=== PATIENT | female | born 1940 | race Caucasian/White ===

== ENCOUNTER 2017-11-09 12:30 | Outpatient (RCR) | payer MEDICARE, BC, SELFPAY ==
[2017-10-12 00:49] VITALS: BP 112/76; PULSE 73; RESP 18; TEMP 36.4
[2017-10-26 12:43] VITALS: BP 149/73; PULSE 69; RESP 16; TEMP 36.6
--- NOTE | 2017-10-26 13:22 | HP.PCM_ITS ---
(1) chronic left lower ext wound Status: Chronic Current Visit: Yes (2) History of DVT (deep vein thrombosis) Status: Chronic Current Visit: Yes Code(s): Z86.718 - Personal history of other venous thrombosis and embolism Comment: left lower ext (3) May-Thurner syndrome Status: Resolved Current Visit: No Code(s): I87.1 - Compression of vein (4) Leg edema, left Status: Chronic Current Visit: Yes Code(s): R60.0 - Localized edema (5) Varicose veins with ulcer and inflammation Status: Chronic Current Visit: Yes Code(s): I83.209 - Varicose veins of unspecified lower extremity with both ulcer of unspecified site and inflammation ; L97.909 - Non-pressure chronic ulcer of unspecified part of unspecified lower leg with unspecified severity (6) Left leg swelling Status: Chronic Current Visit: Yes Code(s): M79.89 - Other specified soft tissue disorders (7) Chronic venous hypertension with inflammation involving left side Status: Chronic Current Visit: Yes Code(s): I87.322 - Chronic venous hypertension (idiopathic) with inflammation of left lower extremity (8) Calf ulcer Status: Chronic Current Visit: Yes Qualifiers: Laterality: left Non-pressure ulcer stage: with fat layer exposed Qualified Code(s): L97.222 - Non-pressure chronic ulcer of left calf with fat layer exposed Code(s): L97.209 - Non-pressure chronic ulcer of unspecified calf with unspecified severity (9) 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 Status: Chronic Current Visit: Yes Code(s): I87.039 - Postthrombotic syndrome with ulcer and inflammation of unspecified lower extremity (10) Lymphedema of left leg Status: Chronic Current Visit: Yes Code(s): I89.0 - Lymphedema, not elsewhere classified (11) Chronic venous insufficiency Status: Chronic Current Visit: Yes (12) Cellulitis Status: Inactive Current Visit: No Code(s): L03.90 - Cellulitis, unspecified (13) Cellulitis of leg Status: Inactive Current Visit: No Qualifiers: Code(s): L03.119 - Cellulitis of unspecified part of limb (14) Erythema of skin Status: Resolved Current Visit: No Code(s): L53.9 - Erythematous condition, unspecified (15) Cellulitis, leg Status: Inactive Current Visit: No Qualifiers: Code(s): L03.119 - Cellulitis of unspecified part of limb (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 This has been present for many years. She has a large ulceration located between her left knee and ankle, which is quite large and irregular in shape, and also highly exudative. 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 She has also previously undergone successful endovenous laser ablation of the left great and small saphenous veins. Healing of the patient's left lower extremity ulceration has been slow, but progressive. A number of healing measures have been implemented in the past , without success. The patient is pleased with her current progress. We are currently using Silvadene topically and Xtrasorb for absorption of exudate. The patient's left calf ulceration continues to improve. It is smaller in size. The left lower extremity appears significantly improved, with increasing areas of epithelialization, and diminishing dimensions of her left lower extremity ulceration. Past Medical History Past Medical History: Chronic Problems chronic left lower ext wound (Chronic) History of DVT (deep vein thrombosis) (Chronic) left lower ext Leg edema, left (Chronic) Varicose veins with ulcer and inflammation (Chronic) Left leg swelling (Chronic) Chronic venous hypertension with inflammation involving left side (Chronic) Calf ulcer (Chronic) 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 (Chronic) Lymphedema of left leg (Chronic) Chronic venous insufficiency (Chronic) Surgical History: appendectomy, hysterectomy Allergies/Adverse Reactions: Allergies Latex, Natural Rubber Allergy (Verified 07/12/13 11:34) Rash Sulfa (Sulfonamide Antibiotics) Allergy (Verified 07/12/13 11:34) Hives trimethoprim Allergy (Verified 07/12/13 11:34) Hives Home Medications: Ambulatory Orders Medication Instructions Recorded Aspirin [Aspirin, Baby] 81 mg PO DAILY@0800 07/12/13 Calcium Carb/Vitamin D [Os-Mo 1 tablet PO DAILY@0800 07/12/13 500MG + D] Clopidogrel Bisulfate [Plavix] 75 mg PO DAILY 07/12/13 Doxepin HCl [Sinequan] 100 mg PO BID 07/12/13 Doxycycline Monohydrate [Monodox] 100 mg PO BID 07/12/13 Wheelwright-3 Fatty Acids/Fish Oil [Fish 1 each PO DAILY 07/12/13 Oil 1,000 mg Softgel] ProMETHAzine Oral Solution 5 ml PO Q4H PRN PRN 07/12/13 [Phenergan Plain] Vitamin B12 500 mg PO DAILY 07/12/13 Vitamin C 500 mg PO DAILY 07/12/13 Prednisone [PredniSONE] 200 mg PO DAILY 07/03/14 Valacyclovir HCl [Valacyclovir] 500 mg PO DAILY 07/03/14 Smoking Status: Never smoker Tobacco Use: Non-smoker Review of Systems Constitutional: Denies: Chills, Fever, Weight Change Eyes: Denies: Pain, Vision Change HEENT: Denies: Difficulty Hearing, Difficulty Swallowing, Sinus Congestion Cardiovascular: Denies: Chest Pain, Palpitations Respiratory: Denies: Cough, Shortness of Breath Gastrointestinal: Denies: Diarrhea, Nausea, Vomiting Genitourinary: Denies: Dysuria, Hematuria Endocrine: Denies: Heat/ Cold Intolerance, Polydipsia, Polyuria Hematologic/ Lymphatic: Denies: Easy Bruising, Easy Bleeding - Physical Exam Vital Signs Temp Pulse Resp BP 98 F 69 16 149/73 H 10/26/17 12:43 10/26/17 12:43 10/26/17 12:43 10/26/17 12:43 General: Alert, Oriented x3, Cooperative, No apparent distress, Well developed, Well nourished HEENT: Atraumatic, PERRLA, EOMI, Normocephalic Oral: Moist Mucosa Neck: No JVD Lungs: Normal air movement Abdomen: Non-Distended Extremities: No clubbing, No cyanosis, No Calf Tenderness, - - Pulling, edema, and lymphedema persist in the left lower extremity. This is most notable on the dorsum of the left foot. The ulceration in the left lower extremity persists, but is smaller in size. It is quite irregular in shape. The base of the ulceration is pink and healthy, with moderate amounts of biofilm and bioburden. Wound dimensions are documented elsewhere. Circumferences are documented elsewhere. There is no sign of infection or cellulitis. Wound Measurements and Assessment - Nurse 1 - General Ulcer Measurement Start: 10/26/17 12:42 Freq: Status: Active Protocol: Activity Type Activity Date Activity User E-Sign Co-Sign Detail Recorded Client Recorded Date Recorded By Document 10/26/17 12:43 [facility] [id number] 10/26/17 12:57 [facility] 10/26/17 12:43 Wound Center Nurse 1 [Ulcer Assessment Protocol: ANNA.WD.LOC] #3 Medial LLE -Combined with other wound No -Current Size (cm) - Length 9.6 -Current Size (cm) - Width 5.8 -Current Size (cm) - Depth 0.1 -Total Square Cm 55.68 -Date of Last Picture (Recall this 10/26/17 field) -Photo Taken Yes -Epithelialization None Present -Tunneling No -Undermining/Tunneling No -Exudate Amt Large (67-100%) -Exudate Type Serous -Wound Margin Distinct, Outline Attached -Granulation Amt Small (1-33%) -Granulation Quality Red -Slough/Fibrin Yes -Necrosis Amt Large (67-100%) -Necrotic Tissue Type Adherent Slough -Structure Exposed N/A -Texture (Nahomy-wound Skin Appearance) Scarring -Moisture (Nahomy-wound Skin Appearance Dry/Scaly ) -Color (Nahomy-wound Skin Appearance) Erythema Hemosiderin Staining -Temperature (Nahomy-wound Skin No Abnormality Appearance) (Pt Warm) -Tenderness on Palpation (Nahomy-wound No Skin Appearance) -Ulcer Cleansing Wound Cleanser -Foul Odor after Cleansing No -Anesthetic Used 4% Lidocaine Solution #4 Lateral LLE -Combined with other wound No -Current Size (cm) - Length 10.6 -Current Size (cm) - Width 13.2 -Current Size (cm) - Depth 0.1 -Total Square Cm 139.92 -Date of Last Picture (Recall this 10/26/17 field) -Photo Taken Yes -Epithelialization None Present -Tunneling No -Undermining/Tunneling No -Exudate Amt Large (67-100%) -Exudate Type Sanguineous -Wound Margin Distinct, Outline Attached -Granulation Amt Small (1-33%) -Granulation Quality Red -Slough/Fibrin Yes -Necrosis Amt Large (67-100%) -Necrotic Tissue Type Adherent Slough -Structure Exposed N/A -Texture (Nahomy-wound Skin Appearance) Scarring -Moisture (Nahomy-wound Skin Appearance Dry/Scaly ) -Color (Nahomy-wound Skin Appearance) Erythema Hemosiderin Staining -Temperature (Nahomy-wound Skin No Abnormality Appearance) (Pt Warm) -Tenderness on Palpation (Nahomy-wound No Skin Appearance) -Ulcer Cleansing Wound Cleanser -Foul Odor after Cleansing No -Anesthetic Used 4% Lidocaine Solution [Edema Assessment] -Lower Limb Edema Present Yes -Left Calf (cm) 36.3 -Left Ankle (cm) 24.6 WC - Nurse 2 - General Ulcer CM Notes Start: 10/26/17 12:42 Freq: Status: Active Protocol: Activity Type Activity Date Activity User E-Sign Co-Sign Detail Recorded Client Recorded Date Recorded By Document 10/26/17 13:06 CARLOS [id number] 10/26/17 13:09 CARLOS 10/26/17 13:06 Wound Center Nurse 2 [Procedure/Treatment] #3 Medial LLE -Time 13:07 -Correct Patient Yes -Correct Side, Site, Position Yes -Correct Procedure Yes -Procedure Performed Yes -Type of Procedure Debridement -Clinical Debridement Subcutaneous -Post Debridement Size (cm) - Length 9.7 -Post Debridement Size (cm) - Width 5.9 -Post Debridement Size (cm) - Depth 0.1 -Total Square Cm 57.23 -Wound/Ulcer Outcome Not Healed -Ulcer Cleansing Rinsed/ Irrigated with Saline -Foul Odor after Cleansing No -Bioengineered Tissue No -Cetacaine Bartlett No -Topical Lidocaine (%) 4 -Lidocaine (ml) 10 -Bleeding Controlled with NA -Treatment Response Procedure Tolerated Well #4 Lateral LLE -Time 13:07 -Correct Patient Yes -Correct Side, Site, Position Yes -Correct Procedure Yes -Procedure Performed Yes -Type of Procedure Debridement -Clinical Debridement Subcutaneous -Post Debridement Size (cm) - Length 10.7 -Post Debridement Size (cm) - Width 13.2 -Post Debridement Size (cm) - Depth 0.1 -Total Square Cm 141.24 -Wound/Ulcer Outcome Not Healed -Ulcer Cleansing Wound Cleanser -Foul Odor after Cleansing No -Bioengineered Tissue No -Cetacaine Bartlett No -Topical Lidocaine (%) 4 -Lidocaine (ml) 10 -Bleeding Controlled with NA -Treatment Response Procedure Tolerated Well [See Physician Procedure note for Specifics] Pain Scale: 0-10 Numeric [Pain] -Is Patient Pain Free? Yes Neurological: Cranial nerves II-XII grossly intact, Neuro grossly intact Psych/Mental Status: Normal Affect, Appropriate, Alert and oriented to time, place, person, mood and affect Debridement Note Post-Debridement Measurements/Treatment WC - Nurse 2 - General Ulcer CM Notes Start: 10/26/17 12:42 Freq: Status: Active Protocol: Activity Type Activity Date Activity User E-Sign Co-Sign Detail Recorded Client Recorded Date Recorded By Document 10/26/17 13:06 CARLOS [id number] 10/26/17 13:09 CARLOS 10/26/17 13:06 Wound Center Nurse 2 #3 Medial LLE -Time 13:07 -Correct Patient Yes -Correct Side, Site, Position Yes -Correct Procedure Yes -Procedure Performed Yes -Type of Procedure Debridement -Clinical Debridement Subcutaneous -Post Debridement Size (cm) - Length 9.7 -Post Debridement Size (cm) - Width 5.9 -Post Debridement Size (cm) - Depth 0.1 -Total Square Cm 57.23 -Wound/Ulcer Outcome Not Healed -Ulcer Cleansing Rinsed/ Irrigated with Saline -Foul Odor after Cleansing No -Bioengineered Tissue No -Cetacaine Bartlett No -Topical Lidocaine (%) 4 -Lidocaine (ml) 10 -Bleeding Controlled with NA -Treatment Response Procedure Tolerated Well #4 Lateral LLE -Time 13:07 -Correct Patient Yes -Correct Side, Site, Position Yes -Correct Procedure Yes -Procedure Performed Yes -Type of Procedure Debridement -Clinical Debridement Subcutaneous -Post Debridement Size (cm) - Length 10.7 -Post Debridement Size (cm) - Width 13.2 -Post Debridement Size (cm) - Depth 0.1 -Total Square Cm 141.24 -Wound/Ulcer Outcome Not Healed -Ulcer Cleansing Wound Cleanser -Foul Odor after Cleansing No -Bioengineered Tissue No -Cetacaine Bartlett No -Topical Lidocaine (%) 4 -Lidocaine (ml) 10 -Bleeding Controlled with NA -Treatment Response Procedure Tolerated Well Pain Scale: 0-10 Numeric Is Patient Pain Free? Yes Laterality: Left - Calf Type of Debridement: Excisional debridement Anesthesia Used: 4% Lidocaine Solution Depth: Down to and including healthy tissue, in the subcutaneous layer Percentage of wound debrided: 100 Instrument Used: 5mm curette Severity: Fat Layer Exposed Amount of bleeding with debridement: Mild Bleeding Controlled with: Compression and gauze Patient tolerated procedure well Assessment/Plan Active Problems chronic left lower ext wound (Chronic) History of DVT (deep vein thrombosis) (Chronic) left lower ext Leg edema, left (Chronic) Varicose veins with ulcer and inflammation (Chronic) Left leg swelling (Chronic) Chronic venous hypertension with inflammation involving left side (Chronic) Calf ulcer (Chronic) 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 (Chronic) Lymphedema of left leg (Chronic) Chronic venous insufficiency (Chronic) Assessment: This is a 77-year-old white female with chronic venous insufficiency , chronic venous hypertension with inflammation and ulceration, varicose veins with inflammation and ulceration, post-phlebitic syndrome with inflammation and ulceration, and left lower extremity swelling and edema and lymphedema. She has a large irregular ulceration on the left lower extremity which is related to her venous disease. The patient has demonstrated slow but progressive improvement. The base of the ulceration appears generally pink and healthy, with a moderate amount of biofilm and bioburden. We are to continue leg elevation, avoidance of idle standing and sitting, compression by means of SurePress, active lifestyle, weight control measures,etc. She is to continue to take a well-balanced, nutritious diet. We are to continue with the use of Silvadene topically. This will be applied topically on a daily basis. Plan: As above. The patient will return in 2 weeks for reevaluation. We are to continue Silvadene topically. Her continuing improvement suggests that present measures are appropriate and providing the desired results. Current measures include leg elevation, avoidance of idle standing and sitting, activity as tolerated, weight control, and compression by means of SurePress, applied by the patient on a daily basis. She is to continue with the use of XtraSorb for moisture control. The ulceration continues to be exudative, and the patient has been encouraged to enhance the amount of time spent elevating her lower extremity, to help minimize the drainage. Patient is also to continue the use of Vasculera orally on a daily basis, which appears to have made significant improvement during the duration of its use. Patient will return in 2 weeks for reassessment. Patient weight is 160 pounds. Patient is 5 feet 9 inches tall. BMI is 23.6. We have discussed weight loss issues, the patient does not require counseling, as her BMI is reasonable. The patient is not a smoker. Influenza vaccine was not administered.
[2017-11-09 12:27] VITALS: BP 145/79; PULSE 70; RESP 16; TEMP 36.5
--- NOTE | 2017-11-09 13:50 | PCM.WC.HP ---
(1) chronic left lower ext wound Status: Chronic Current Visit: Yes (2) History of DVT (deep vein thrombosis) Status: Chronic Current Visit: Yes Code(s): Z86.718 - Personal history of other venous thrombosis and embolism Comment: left lower ext (3) Leg edema, left Status: Chronic Current Visit: Yes Code(s): R60.0 - Localized edema (4) Varicose veins with ulcer and inflammation Status: Chronic Current Visit: Yes Code(s): I83.209 - Varicose veins of unspecified lower extremity with both ulcer of unspecified site and inflammation; L97.909 - Non-pressure chronic ulcer of unspecified part of unspecified lower leg with unspecified severity (5) Left leg swelling Status: Chronic Current Visit: Yes Code(s): M79.89 - Other specified soft tissue disorders (6) Chronic venous hypertension with inflammation involving left side Status: Chronic Current Visit: Yes Code(s): I87.322 - Chronic venous hypertension (idiopathic) with inflammation of left lower extremity (7) Calf ulcer Status: Chronic Current Visit: Yes Qualifiers: Laterality: left Non-pressure ulcer stage: with fat layer exposed Qualified Code(s): L97.222 - Non-pressure chronic ulcer of left calf with fat layer exposed Code(s): L97.209 - Non-pressure chronic ulcer of unspecified calf with unspecified severity (8) 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 Status: Chronic Current Visit: Yes Code(s): I87.039 - Postthrombotic syndrome with ulcer and inflammation of unspecified lower extremity (9) Lymphedema of left leg Status: Chronic Current Visit: Yes Code(s): I89.0 - Lymphedema, not elsewhere classified (10) Chronic venous insufficiency Status: Chronic Current Visit: Yes History of Present Illness Date of Service: 11/09/17 Chief Complaint: Chronic venous insufficiency, chronic venous hypertension with inflammation and ulceration, varicose veins with inflammation and ulceration, post phlebitic syndrome with inflammation and ulceration,leg swelling, leg edema, lymphedema, venous stasis ulceration-left lower extremity History of Wound: This is a 77-year-old white female with a long-standing history of chronic venous disease and swelling in her left lower extremity. This has been present for many years. She has a large ulceration located between her left knee and ankle, which is quite large and irregular in shape, and also highly exudative. 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 She has also previously undergone successful endovenous laser ablation of the left great and small saphenous veins. Healing of the patient's left lower extremity ulceration has been slow, but progressive. A number of healing measures have been implemented in the past, without success. The patient is pleased with her current progress. We are currently using Silvadene topically and Xtrasorb for absorption of exudate. The patient's left calf ulceration continues to improve. It is smaller in size. The left lower extremity appears significantly improved, with increasing areas of epithelialization, and diminishing dimensions of her left lower extremity ulceration. Past Medical History Past Medical History: Chronic Problems chronic left lower ext wound (Chronic) History of DVT (deep vein thrombosis) (Chronic) left lower ext Leg edema, left (Chronic) Varicose veins with ulcer and inflammation (Chronic) Left leg swelling (Chronic) Chronic venous hypertension with inflammation involving left side (Chronic) Calf ulcer (Chronic) 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 (Chronic) Lymphedema of left leg (Chronic) Chronic venous insufficiency (Chronic) Surgical History: appendectomy, hysterectomy Allergies/Adverse Reactions: Allergies Latex, Natural Rubber Allergy (Verified 07/12/13 11:34) Rash Sulfa (Sulfonamide Antibiotics) Allergy (Verified 07/12/13 11:34) Hives trimethoprim Allergy (Verified 07/12/13 11:34) Hives Home Medications: Ambulatory Orders Medication Instructions Recorded Aspirin [Aspirin, Baby] 81 mg PO DAILY@0800 07/12/13 Calcium Carb/Vitamin D [Os-Mo 1 tablet PO DAILY@0800 07/12/13 500MG + D] Clopidogrel Bisulfate [Plavix] 75 mg PO DAILY 07/12/13 Doxepin HCl [Sinequan] 100 mg PO BID 07/12/13 Doxycycline Monohydrate [Monodox] 100 mg PO BID 07/12/13 [place]-3 Fatty Acids/Fish Oil [Fish 1 each PO DAILY 07/12/13 Oil 1,000 mg Softgel] ProMETHAzine Oral Solution 5 ml PO Q4H PRN PRN 07/12/13 [Phenergan Plain] Vitamin B12 500 mg PO DAILY 07/12/13 Vitamin C 500 mg PO DAILY 07/12/13 Prednisone [PredniSONE] 200 mg PO DAILY 07/03/14 Valacyclovir HCl [Valacyclovir] 500 mg PO DAILY 07/03/14 Smoking Status: Never smoker Tobacco Use: Non-smoker Review of Systems Constitutional: Denies: Chills, Fever, Weight Change Eyes: Denies: Pain, Vision Change HEENT: Denies: Difficulty Hearing, Difficulty Swallowing, Sinus Congestion Cardiovascular: Denies: Chest Pain, Palpitations Respiratory: Denies: Cough, Shortness of Breath Gastrointestinal: Denies: Diarrhea, Nausea, Vomiting Genitourinary: Denies: Dysuria, Hematuria Endocrine: Denies: Heat/ Cold Intolerance, Polydipsia, Polyuria Hematologic/ Lymphatic: Denies: Easy Bruising, Easy Bleeding - Physical Exam Vital Signs Temp Pulse Resp BP 97.7 F L 70 16 145/79 H 11/09/17 12:27 11/09/17 12:27 11/09/17 12:27 11/09/17 12:27 General: Alert, Oriented x3, Cooperative, No apparent distress, Well developed, Well nourished HEENT: Atraumatic, PERRLA, EOMI, Normocephalic Oral: Moist Mucosa Neck: No JVD Lungs: Normal air movement Abdomen: Non-Distended Extremities: No clubbing, No cyanosis, No Calf Tenderness, - - Moderate swelling and edema persist in the left lower extremity. This is chronic in nature, and is noted particularly on the dorsum of the left foot. The ulceration on the left calf persists, and is quite irregular in shape. Dimensions are documented elsewhere. There is no sign of infection or cellulitis. There is a moderate amount of biofilm and bioburden. Skin: No rashes Wound Measurements and Assessment - Nurse 1 - General Ulcer Measurement Start: 10/26/17 12:42 Freq: Status: Active Protocol: Activity Type Activity Date Activity User E-Sign Co-Sign Detail Recorded Client Recorded Date Recorded By Document 11/09/17 12:27 [facility] [id number] 11/09/17 12:41 [facility] 11/09/17 12:27 Wound Center Nurse 1 [Ulcer Assessment Protocol: ANNA.WD.LOC] #3 Medial LLE -Combined with other wound No -Current Size (cm) - Length 9.8 -Current Size (cm) - Width 6 -Current Size (cm) - Depth 0.1 -Total Square Cm 58.8 -Date of Last Picture (Recall this 11/09/17 field) -Photo Taken Yes -Tunneling No -Undermining/Tunneling No -Exudate Amt Large (67-100%) -Exudate Type Serosanguineous -Wound Margin Distinct, Outline Attached -Granulation Amt Small (1-33%) -Granulation Quality Red -Slough/Fibrin Yes -Necrosis Amt Large (67-100%) -Necrotic Tissue Type Adherent Slough -Texture (Nahomy-wound Skin Appearance) Scarring Rash -Moisture (Nahomy-wound Skin Appearance Maceration ) Dry/Scaly -Color (Nahomy-wound Skin Appearance) Erythema -Temperature (Nahomy-wound Skin No Abnormality Appearance) (Pt Warm) -Tenderness on Palpation (Nahomy-wound No Skin Appearance) -Ulcer Cleansing Wound Cleanser -Foul Odor after Cleansing No -Anesthetic Used 4% Lidocaine Solution #4 Lateral LLE -Combined with other wound No -Current Size (cm) - Length 10.4 -Current Size (cm) - Width 13.1 -Current Size (cm) - Depth 0.1 -Total Square Cm 136.24 -Date of Last Picture (Recall this 11/09/17 field) -Photo Taken Yes -Tunneling No -Undermining/Tunneling No -Exudate Amt Large (67-100%) -Exudate Type Serosanguineous -Wound Margin Distinct, Outline Attached -Granulation Amt Small (1-33%) -Granulation Quality Red -Slough/Fibrin Yes -Necrosis Amt Large (67-100%) -Necrotic Tissue Type Adherent Slough -Texture (Nahomy-wound Skin Appearance) Scarring Rash -Moisture (Nahomy-wound Skin Appearance Maceration ) Dry/Scaly -Color (Nahomy-wound Skin Appearance) Erythema -Temperature (Nahomy-wound Skin No Abnormality Appearance) (Pt Warm) -Tenderness on Palpation (Nahomy-wound No Skin Appearance) -Ulcer Cleansing Wound Cleanser -Foul Odor after Cleansing No -Anesthetic Used 4% Lidocaine Solution [Edema Assessment] -Lower Limb Edema Present Yes -Left Calf (cm) 39.6 -Left Ankle (cm) 24.1 WC - Nurse 2 - General Ulcer CM Notes Start: 10/26/17 12:42 Freq: Status: Active Protocol: Activity Type Activity Date Activity User E-Sign Co-Sign Detail Recorded Client Recorded Date Recorded By Document 11/09/17 13:43 DV [id number] 11/09/17 13:48 DV 11/09/17 13:43 Wound Center Nurse 2 [Procedure/Treatment] #3 Medial LLE -Time 13:43 -Correct Patient Yes -Correct Side, Site, Position Yes -Correct Procedure Yes -Procedure Performed Yes -Type of Procedure Debridement -Clinical Debridement Subcutaneous -Post Debridement Size (cm) - Length 10.0 -Post Debridement Size (cm) - Width 6.0 -Post Debridement Size (cm) - Depth 0.1 -Total Square Cm 60.00 -Wound/Ulcer Outcome Not Healed -Ulcer Cleansing Rinsed/ Irrigated with Saline -Foul Odor after Cleansing No -Bioengineered Tissue No -Cetacaine [place] No -Bleeding Controlled with Pressure -Treatment Response Procedure Tolerated Well #4 Lateral LLE -Time 13:44 -Correct Patient Yes -Correct Side, Site, Position Yes -Correct Procedure Yes -Procedure Performed Yes -Type of Procedure Debridement -Clinical Debridement Subcutaneous -Post Debridement Size (cm) - Length 10.5 -Post Debridement Size (cm) - Width 13.5 -Post Debridement Size (cm) - Depth 0.1 -Total Square Cm 141.75 -Wound/Ulcer Outcome Not Healed -Ulcer Cleansing Rinsed/ Irrigated with Saline -Foul Odor after Cleansing Yes -Cetacaine [place] No -Bleeding Controlled with Pressure -Treatment Response Procedure Tolerated Well [See Physician Procedure note for Specifics] Pain Scale: 0-10 Numeric [Pain] -Is Patient Pain Free? Yes Neurological: Cranial nerves II-XII grossly intact, Neuro grossly intact Psych/Mental Status: Normal Affect, Appropriate, Alert and oriented to time, place, person, mood and affect Debridement Note Post-Debridement Measurements/Treatment WC - Nurse 2 - General Ulcer CM Notes Start: 10/26/17 12:42 Freq: Status: Active Protocol: Activity Type Activity Date Activity User E-Sign Co-Sign Detail Recorded Client Recorded Date Recorded By Document 10/26/17 13:06 CARLOS [id number] 10/26/17 13:09 JS Document 11/09/17 13:43 DV [id number] 11/09/17 13:48 DV 10/26/17 11/09/17 13:06 13:43 Wound Center Nurse 2 #3 Medial LLE -Time 13:07 13:43 -Correct Patient Yes Yes -Correct Side, Site, Position Yes Yes -Correct Procedure Yes Yes -Procedure Performed Yes Yes -Type of Procedure Debridement Debridement -Clinical Debridement Subcutaneous Subcutaneous -Post Debridement Size (cm) - Length 9.7 10.0 -Post Debridement Size (cm) - Width 5.9 6.0 -Post Debridement Size (cm) - Depth 0.1 0.1 -Total Square Cm 57.23 60.00 -Wound/Ulcer Outcome Not Healed Not Healed -Ulcer Cleansing Rinsed/ Rinsed/ Irrigated with Irrigated with Saline Saline -Foul Odor after Cleansing No No -Bioengineered Tissue No No -Cetacaine [place] No No -Topical Lidocaine (%) 4 -Lidocaine (ml) 10 -Bleeding Controlled with NA Pressure -Treatment Response Procedure Procedure Tolerated Well Tolerated Well #4 Lateral LLE -Time 13:07 13:44 -Correct Patient Yes Yes -Correct Side, Site, Position Yes Yes -Correct Procedure Yes Yes -Procedure Performed Yes Yes -Type of Procedure Debridement Debridement -Clinical Debridement Subcutaneous Subcutaneous -Post Debridement Size (cm) - Length 10.7 10.5 -Post Debridement Size (cm) - Width 13.2 13.5 -Post Debridement Size (cm) - Depth 0.1 0.1 -Total Square Cm 141.24 141.75 -Wound/Ulcer Outcome Not Healed Not Healed -Ulcer Cleansing Wound Cleanser Rinsed/ Irrigated with Saline -Foul Odor after Cleansing No Yes -Bioengineered Tissue No -Cetacaine [place] No No -Topical Lidocaine (%) 4 -Lidocaine (ml) 10 -Bleeding Controlled with NA Pressure -Treatment Response Procedure Procedure Tolerated Well Tolerated Well Pain Scale: 0-10 Numeric Is Patient Pain Free? Yes Yes Laterality: Left - Calf Type of Debridement: Excisional debridement Anesthesia Used: 4% Lidocaine Solution Depth: Down to and including healthy tissue, in the subcutaneous layer Percentage of wound debrided: 100 Instrument Used: 7mm curette Severity: Fat Layer Exposed Amount of bleeding with debridement: Mild Bleeding Controlled with: Compression and gauze Patient tolerated procedure well Assessment/Plan Active Problems chronic left lower ext wound (Chronic) History of DVT (deep vein thrombosis) (Chronic) left lower ext Leg edema, left (Chronic) Varicose veins with ulcer and inflammation (Chronic) Left leg swelling (Chronic) Chronic venous hypertension with inflammation involving left side (Chronic) Calf ulcer (Chronic) 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 (Chronic) Lymphedema of left leg (Chronic) Chronic venous insufficiency (Chronic) Assessment: This is a 77-year-old white female with chronic venous insufficiency, chronic venous hypertension with inflammation and ulceration, varicose veins with inflammation and ulceration, post-phlebitic syndrome with inflammation and ulceration, and left lower extremity swelling and edema and lymphedema. She has a large irregular ulceration on the left lower extremity which is related to her venous disease. The patient has demonstrated slow but progressive improvement. The base of the ulceration appears generally pink and healthy, with a moderate amount of biofilm and bioburden. We are to continue leg elevation, avoidance of idle standing and sitting, compression by means of SurePress, active lifestyle, weight control measures,etc. She is to continue to take a well-balanced, nutritious diet. We are to continue with the use of Silvadene topically. This will be applied topically on a daily basis. Plan: As above. The patient will return in 2 weeks for reevaluation. We are to continue Silvadene topically. Her continuing improvement suggests that present measures are appropriate and providing the desired results. Current measures include leg elevation, avoidance of idle standing and sitting, activity as tolerated, weight control, and compression by means of SurePress, applied by the patient on a daily basis. She is to continue with the use of XtraSorb for moisture control. The ulceration continues to be exudative, and the patient has been encouraged to enhance the amount of time spent elevating her lower extremity, to help minimize the drainage. Patient is also to continue the use of Vasculera orally on a daily basis, which appears to have made significant improvement during the duration of its use. Patient will return in 2 weeks for reassessment. Patient weight is 160 pounds. Patient is 5 feet 9 inches tall. BMI is 23.6. We have discussed weight loss issues, the patient does not require counseling, as her BMI is reasonable. The patient is not a smoker. Influenza vaccine was not administered.
--- NOTE | 2017-11-09 13:53 | HP.PCM_ITS ---
(1) chronic left lower ext wound Status: Chronic Current Visit: Yes (2) History of DVT (deep vein thrombosis) Status: Chronic Current Visit: Yes Code(s): Z86.718 - Personal history of other venous thrombosis and embolism Comment: left lower ext (3) Leg edema, left Status: Chronic Current Visit: Yes Code(s): R60.0 - Localized edema (4) Varicose veins with ulcer and inflammation Status: Chronic Current Visit: Yes Code(s): I83.209 - Varicose veins of unspecified lower extremity with both ulcer of unspecified site and inflammation ; L97.909 - Non-pressure chronic ulcer of unspecified part of unspecified lower leg with unspecified severity (5) Left leg swelling Status: Chronic Current Visit: Yes Code(s): M79.89 - Other specified soft tissue disorders (6) Chronic venous hypertension with inflammation involving left side Status: Chronic Current Visit: Yes Code(s): I87.322 - Chronic venous hypertension (idiopathic) with inflammation of left lower extremity (7) Calf ulcer Status: Chronic Current Visit: Yes Qualifiers: Laterality: left Non-pressure ulcer stage: with fat layer exposed Qualified Code(s): L97.222 - Non-pressure chronic ulcer of left calf with fat layer exposed Code(s): L97.209 - Non-pressure chronic ulcer of unspecified calf with unspecified severity (8) 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 Status: Chronic Current Visit: Yes Code(s): I87.039 - Postthrombotic syndrome with ulcer and inflammation of unspecified lower extremity (9) Lymphedema of left leg Status: Chronic Current Visit: Yes Code(s): I89.0 - Lymphedema, not elsewhere classified (10) Chronic venous insufficiency Status: Chronic Current Visit: Yes History of Present Illness Date of Service: 11/09/17 Chief Complaint: Chronic venous insufficiency, chronic venous hypertension with inflammation and ulceration, varicose veins with inflammation and ulceration, post phlebitic syndrome with inflammation and ulceration,leg swelling, leg edema , lymphedema, venous stasis ulceration-left lower extremity History of Wound: This is a 77-year-old white female with a long-standing history of chronic venous disease and swelling in her left lower extremity. This has been present for many years. She has a large ulceration located between her left knee and ankle, which is quite large and irregular in shape, and also highly exudative. 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 She has also previously undergone successful endovenous laser ablation of the left great and small saphenous veins. Healing of the patient's left lower extremity ulceration has been slow, but progressive. A number of healing measures have been implemented in the past , without success. The patient is pleased with her current progress. We are currently using Silvadene topically and Xtrasorb for absorption of exudate. The patient's left calf ulceration continues to improve. It is smaller in size. The left lower extremity appears significantly improved, with increasing areas of epithelialization, and diminishing dimensions of her left lower extremity ulceration. Past Medical History Past Medical History: Chronic Problems chronic left lower ext wound (Chronic) History of DVT (deep vein thrombosis) (Chronic) left lower ext Leg edema, left (Chronic) Varicose veins with ulcer and inflammation (Chronic) Left leg swelling (Chronic) Chronic venous hypertension with inflammation involving left side (Chronic) Calf ulcer (Chronic) 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 (Chronic) Lymphedema of left leg (Chronic) Chronic venous insufficiency (Chronic) Surgical History: appendectomy, hysterectomy Allergies/Adverse Reactions: Allergies Latex, Natural Rubber Allergy (Verified 07/12/13 11:34) Rash Sulfa (Sulfonamide Antibiotics) Allergy (Verified 07/12/13 11:34) Hives trimethoprim Allergy (Verified 07/12/13 11:34) Hives Home Medications: Ambulatory Orders Medication Instructions Recorded Aspirin [Aspirin, Baby] 81 mg PO DAILY@0800 07/12/13 Calcium Carb/Vitamin D [Os-Mo 1 tablet PO DAILY@0800 07/12/13 500MG + D] Clopidogrel Bisulfate [Plavix] 75 mg PO DAILY 07/12/13 Doxepin HCl [Sinequan] 100 mg PO BID 07/12/13 Doxycycline Monohydrate [Monodox] 100 mg PO BID 07/12/13 [place]-3 Fatty Acids/Fish Oil [Fish 1 each PO DAILY 07/12/13 Oil 1,000 mg Softgel] ProMETHAzine Oral Solution 5 ml PO Q4H PRN PRN 07/12/13 [Phenergan Plain] Vitamin B12 500 mg PO DAILY 07/12/13 Vitamin C 500 mg PO DAILY 07/12/13 Prednisone [PredniSONE] 200 mg PO DAILY 07/03/14 Valacyclovir HCl [Valacyclovir] 500 mg PO DAILY 07/03/14 Smoking Status: Never smoker Tobacco Use: Non-smoker Review of Systems Constitutional: Denies: Chills, Fever, Weight Change Eyes: Denies: Pain, Vision Change HEENT: Denies: Difficulty Hearing, Difficulty Swallowing, Sinus Congestion Cardiovascular: Denies: Chest Pain, Palpitations Respiratory: Denies: Cough, Shortness of Breath Gastrointestinal: Denies: Diarrhea, Nausea, Vomiting Genitourinary: Denies: Dysuria, Hematuria Endocrine: Denies: Heat/ Cold Intolerance, Polydipsia, Polyuria Hematologic/ Lymphatic: Denies: Easy Bruising, Easy Bleeding - Physical Exam Vital Signs Temp Pulse Resp BP 97.7 F L 70 16 145/79 H 11/09/17 12:27 11/09/17 12:27 11/09/17 12:27 11/09/17 12:27 General: Alert, Oriented x3, Cooperative, No apparent distress, Well developed, Well nourished HEENT: Atraumatic, PERRLA, EOMI, Normocephalic Oral: Moist Mucosa Neck: No JVD Lungs: Normal air movement Abdomen: Non-Distended Extremities: No clubbing, No cyanosis, No Calf Tenderness, - - Moderate swelling and edema persist in the left lower extremity. This is chronic in nature, and is noted particularly on the dorsum of the left foot. The ulceration on the left calf persists, and is quite irregular in shape. Dimensions are documented elsewhere. There is no sign of infection or cellulitis. There is a moderate amount of biofilm and bioburden. Skin: No rashes Wound Measurements and Assessment - Nurse 1 - General Ulcer Measurement Start: 10/26/17 12:42 Freq: Status: Active Protocol: Activity Type Activity Date Activity User E-Sign Co-Sign Detail Recorded Client Recorded Date Recorded By Document 11/09/17 12:27 [facility] [id number] 11/09/17 12:41 [facility] 11/09/17 12:27 Wound Center Nurse 1 [Ulcer Assessment Protocol: ANNA.WD.LOC] #3 Medial LLE -Combined with other wound No -Current Size (cm) - Length 9.8 -Current Size (cm) - Width 6 -Current Size (cm) - Depth 0.1 -Total Square Cm 58.8 -Date of Last Picture (Recall this 11/09/17 field) -Photo Taken Yes -Tunneling No -Undermining/Tunneling No -Exudate Amt Large (67-100%) -Exudate Type Serosanguineous -Wound Margin Distinct, Outline Attached -Granulation Amt Small (1-33%) -Granulation Quality Red -Slough/Fibrin Yes -Necrosis Amt Large (67-100%) -Necrotic Tissue Type Adherent Slough -Texture (Nahomy-wound Skin Appearance) Scarring Rash -Moisture (Nahomy-wound Skin Appearance Maceration ) Dry/Scaly -Color (Nahomy-wound Skin Appearance) Erythema -Temperature (Nahomy-wound Skin No Abnormality Appearance) (Pt Warm) -Tenderness on Palpation (Nahomy-wound No Skin Appearance) -Ulcer Cleansing Wound Cleanser -Foul Odor after Cleansing No -Anesthetic Used 4% Lidocaine Solution #4 Lateral LLE -Combined with other wound No -Current Size (cm) - Length 10.4 -Current Size (cm) - Width 13.1 -Current Size (cm) - Depth 0.1 -Total Square Cm 136.24 -Date of Last Picture (Recall this 11/09/17 field) -Photo Taken Yes -Tunneling No -Undermining/Tunneling No -Exudate Amt Large (67-100%) -Exudate Type Serosanguineous -Wound Margin Distinct, Outline Attached -Granulation Amt Small (1-33%) -Granulation Quality Red -Slough/Fibrin Yes -Necrosis Amt Large (67-100%) -Necrotic Tissue Type Adherent Slough -Texture (Nahomy-wound Skin Appearance) Scarring Rash -Moisture (Nahomy-wound Skin Appearance Maceration ) Dry/Scaly -Color (Nahomy-wound Skin Appearance) Erythema -Temperature (Nahomy-wound Skin No Abnormality Appearance) (Pt Warm) -Tenderness on Palpation (Nahomy-wound No Skin Appearance) -Ulcer Cleansing Wound Cleanser -Foul Odor after Cleansing No -Anesthetic Used 4% Lidocaine Solution [Edema Assessment] -Lower Limb Edema Present Yes -Left Calf (cm) 39.6 -Left Ankle (cm) 24.1 WC - Nurse 2 - General Ulcer CM Notes Start: 10/26/17 12:42 Freq: Status: Active Protocol: Activity Type Activity Date Activity User E-Sign Co-Sign Detail Recorded Client Recorded Date Recorded By Document 11/09/17 13:43 DV [id number] 11/09/17 13:48 DV 11/09/17 13:43 Wound Center Nurse 2 [Procedure/Treatment] #3 Medial LLE -Time 13:43 -Correct Patient Yes -Correct Side, Site, Position Yes -Correct Procedure Yes -Procedure Performed Yes -Type of Procedure Debridement -Clinical Debridement Subcutaneous -Post Debridement Size (cm) - Length 10.0 -Post Debridement Size (cm) - Width 6.0 -Post Debridement Size (cm) - Depth 0.1 -Total Square Cm 60.00 -Wound/Ulcer Outcome Not Healed -Ulcer Cleansing Rinsed/ Irrigated with Saline -Foul Odor after Cleansing No -Bioengineered Tissue No -Cetacaine Orange No -Bleeding Controlled with Pressure -Treatment Response Procedure Tolerated Well #4 Lateral LLE -Time 13:44 -Correct Patient Yes -Correct Side, Site, Position Yes -Correct Procedure Yes -Procedure Performed Yes -Type of Procedure Debridement -Clinical Debridement Subcutaneous -Post Debridement Size (cm) - Length 10.5 -Post Debridement Size (cm) - Width 13.5 -Post Debridement Size (cm) - Depth 0.1 -Total Square Cm 141.75 -Wound/Ulcer Outcome Not Healed -Ulcer Cleansing Rinsed/ Irrigated with Saline -Foul Odor after Cleansing Yes -Cetacaine Orange No -Bleeding Controlled with Pressure -Treatment Response Procedure Tolerated Well [See Physician Procedure note for Specifics] Pain Scale: 0-10 Numeric [Pain] -Is Patient Pain Free? Yes Neurological: Cranial nerves II-XII grossly intact, Neuro grossly intact Psych/Mental Status: Normal Affect, Appropriate, Alert and oriented to time, place, person, mood and affect Debridement Note Post-Debridement Measurements/Treatment WC - Nurse 2 - General Ulcer CM Notes Start: 10/26/17 12:42 Freq: Status: Active Protocol: Activity Type Activity Date Activity User E-Sign Co-Sign Detail Recorded Client Recorded Date Recorded By Document 10/26/17 13:06 CARLOS [id number] 10/26/17 13:09 JS Document 11/09/17 13:43 DV [id number] 11/09/17 13:48 DV 10/26/17 11/09/17 13:06 13:43 Wound Center Nurse 2 #3 Medial LLE -Time 13:07 13:43 -Correct Patient Yes Yes -Correct Side, Site, Position Yes Yes -Correct Procedure Yes Yes -Procedure Performed Yes Yes -Type of Procedure Debridement Debridement -Clinical Debridement Subcutaneous Subcutaneous -Post Debridement Size (cm) - Length 9.7 10.0 -Post Debridement Size (cm) - Width 5.9 6.0 -Post Debridement Size (cm) - Depth 0.1 0.1 -Total Square Cm 57.23 60.00 -Wound/Ulcer Outcome Not Healed Not Healed -Ulcer Cleansing Rinsed/ Rinsed/ Irrigated with Irrigated with Saline Saline -Foul Odor after Cleansing No No -Bioengineered Tissue No No -Cetacaine Orange No No -Topical Lidocaine (%) 4 -Lidocaine (ml) 10 -Bleeding Controlled with NA Pressure -Treatment Response Procedure Procedure Tolerated Well Tolerated Well #4 Lateral LLE -Time 13:07 13:44 -Correct Patient Yes Yes -Correct Side, Site, Position Yes Yes -Correct Procedure Yes Yes -Procedure Performed Yes Yes -Type of Procedure Debridement Debridement -Clinical Debridement Subcutaneous Subcutaneous -Post Debridement Size (cm) - Length 10.7 10.5 -Post Debridement Size (cm) - Width 13.2 13.5 -Post Debridement Size (cm) - Depth 0.1 0.1 -Total Square Cm 141.24 141.75 -Wound/Ulcer Outcome Not Healed Not Healed -Ulcer Cleansing Wound Cleanser Rinsed/ Irrigated with Saline -Foul Odor after Cleansing No Yes -Bioengineered Tissue No -Cetacaine Orange No No -Topical Lidocaine (%) 4 -Lidocaine (ml) 10 -Bleeding Controlled with NA Pressure -Treatment Response Procedure Procedure Tolerated Well Tolerated Well Pain Scale: 0-10 Numeric Is Patient Pain Free? Yes Yes Laterality: Left - Calf Type of Debridement: Excisional debridement Anesthesia Used: 4% Lidocaine Solution Depth: Down to and including healthy tissue, in the subcutaneous layer Percentage of wound debrided: 100 Instrument Used: 7mm curette Severity: Fat Layer Exposed Amount of bleeding with debridement: Mild Bleeding Controlled with: Compression and gauze Patient tolerated procedure well Assessment/Plan Active Problems chronic left lower ext wound (Chronic) History of DVT (deep vein thrombosis) (Chronic) left lower ext Leg edema, left (Chronic) Varicose veins with ulcer and inflammation (Chronic) Left leg swelling (Chronic) Chronic venous hypertension with inflammation involving left side (Chronic) Calf ulcer (Chronic) 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 (Chronic) Lymphedema of left leg (Chronic) Chronic venous insufficiency (Chronic) Assessment: This is a 77-year-old white female with chronic venous insufficiency , chronic venous hypertension with inflammation and ulceration, varicose veins with inflammation and ulceration, post-phlebitic syndrome with inflammation and ulceration, and left lower extremity swelling and edema and lymphedema. She has a large irregular ulceration on the left lower extremity which is related to her venous disease. The patient has demonstrated slow but progressive improvement. The base of the ulceration appears generally pink and healthy, with a moderate amount of biofilm and bioburden. We are to continue leg elevation, avoidance of idle standing and sitting, compression by means of SurePress, active lifestyle, weight control measures,etc. She is to continue to take a well-balanced, nutritious diet. We are to continue with the use of Silvadene topically. This will be applied topically on a daily basis. Plan: As above. The patient will return in 2 weeks for reevaluation. We are to continue Silvadene topically. Her continuing improvement suggests that present measures are appropriate and providing the desired results. Current measures include leg elevation, avoidance of idle standing and sitting, activity as tolerated, weight control, and compression by means of SurePress, applied by the patient on a daily basis. She is to continue with the use of XtraSorb for moisture control. The ulceration continues to be exudative, and the patient has been encouraged to enhance the amount of time spent elevating her lower extremity, to help minimize the drainage. Patient is also to continue the use of Vasculera orally on a daily basis, which appears to have made significant improvement during the duration of its use. Patient will return in 2 weeks for reassessment. Patient weight is 160 pounds. Patient is 5 feet 9 inches tall. BMI is 23.6. We have discussed weight loss issues, the patient does not require counseling, as her BMI is reasonable. The patient is not a smoker. Influenza vaccine was not administered.
== END 2017-11-11 23:59 ==
LOC: WC 12:30
PROVIDERS: Visit Provider Surgery
DX: I83.022 Varicose veins of left lower extremity with ulcer of calf (principal); L97.222 Non-pressure chronic ulcer of left calf with fat layer exposed; Z86.718 Personal history of other venous thrombosis and embolism; R60.0 Localized edema; M79.89 Other specified soft tissue disorders; I89.0 Lymphedema, not elsewhere classified; L03.119 Cellulitis of unspecified part of limb; Z79.899 Other long term (current) drug therapy; Z79.02 Long term (current) use of antithrombotics/antiplatelets; Z79.51 Long term (current) use of inhaled steroids
CPT/HCPCS: 11042; 11045

== ENCOUNTER 2017-12-07 12:30 | Outpatient (RCR) | payer MEDICARE, BC, SELFPAY ==
[2017-11-09 12:27] VITALS: BP 145/79
[2017-11-12 00:36] VITALS: PULSE 70; RESP 16; TEMP 36.5
[2017-11-24 11:12] VITALS: BP 146/79; PULSE 71; RESP 16; TEMP 37.1
--- NOTE | 2017-11-24 12:00 | HP.PCM_ITS ---
(1) Chronic venous hypertension with inflammation involving left side Status: Chronic Current Visit: Yes Code(s): I87.322 - Chronic venous hypertension (idiopathic) with inflammation of left lower extremity (2) Left leg swelling Status: Chronic Current Visit: Yes Code(s): M79.89 - Other specified soft tissue disorders (3) Varicose veins with ulcer and inflammation Status: Chronic Current Visit: Yes Code(s): I83.209 - Varicose veins of unspecified lower extremity with both ulcer of unspecified site and inflammation ; L97.909 - Non-pressure chronic ulcer of unspecified part of unspecified lower leg with unspecified severity (4) Leg edema, left Status: Chronic Current Visit: Yes Code(s): R60.0 - Localized edema (5) May-Thurner syndrome Status: Resolved Current Visit: No Code(s): I87.1 - Compression of vein (6) History of DVT (deep vein thrombosis) Status: Chronic Current Visit: No Code(s): Z86.718 - Personal history of other venous thrombosis and embolism Comment: left lower ext (7) dermatomycosis leg Status: Inactive Current Visit: No (8) Cellulitis, leg Status: Inactive Current Visit: No Qualifiers: Code(s): L03.119 - Cellulitis of unspecified part of limb (9) Erythema of skin Status: Resolved Current Visit: No Code(s): L53.9 - Erythematous condition, unspecified (10) Cellulitis of leg Status: Inactive Current Visit: No Qualifiers: Code(s): L03.119 - Cellulitis of unspecified part of limb (11) Cellulitis Status: Inactive Current Visit: No Code(s): L03.90 - Cellulitis, unspecified (12) Chronic venous insufficiency Status: Chronic Current Visit: Yes (13) Lymphedema of left leg Status: Chronic Current Visit: Yes Code(s): I89.0 - Lymphedema, not elsewhere classified (14) 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 Status: Chronic Current Visit: Yes Code(s): I87.039 - Postthrombotic syndrome with ulcer and inflammation of unspecified lower extremity (15) Calf ulcer Status: Chronic Current Visit: Yes Qualifiers: Laterality: left Non-pressure ulcer stage: with fat layer exposed Qualified Code(s): L97.222 - Non-pressure chronic ulcer of left calf with fat layer exposed Code(s): L97.209 - Non-pressure chronic ulcer of unspecified calf with unspecified severity (16) chronic left lower ext wound Status: Chronic Current Visit: Yes History of Present Illness Date of Service: 11/24/17 Chief Complaint: Chronic venous insufficiency, chronic venous hypertension with inflammation and ulceration, varicose veins with inflammation and ulceration, post phlebitic syndrome with inflammation and ulceration,leg swelling, leg edema , lymphedema, venous stasis ulceration-left lower extremity History of Wound: This is a 77-year-old white female with a long-standing history of chronic venous disease and swelling in her left lower extremity. This has been present for many years. She has a large ulceration located between her left knee and ankle, which is quite large and irregular in shape, and also highly exudative. 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 She has also previously undergone successful endovenous laser ablation of the left great and small saphenous veins. Healing of the patient's left lower extremity ulceration has been slow, but progressive. A number of healing measures have been implemented in the past , without success. The patient is pleased with her current progress. We are currently using Silvadene topically and Xtrasorb for absorption of exudate. The patient's left calf ulceration continues to improve. It is smaller in size. The left lower extremity appears significantly improved, with increasing areas of epithelialization, and diminishing dimensions of her left lower extremity ulceration. 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 (Chronic) chronic left lower ext wound (Chronic) Surgical History: appendectomy, hysterectomy Allergies/Adverse Reactions: Allergies Latex, Natural Rubber Allergy (Verified 07/12/13 11:34) Rash Sulfa (Sulfonamide Antibiotics) Allergy (Verified 07/12/13 11:34) Hives trimethoprim Allergy (Verified 07/12/13 11:34) Hives Home Medications: Ambulatory Orders Medication Instructions Recorded Aspirin [Aspirin, Baby] 81 mg PO DAILY@0800 07/12/13 Calcium Carb/Vitamin D [Os-Mo 1 tablet PO DAILY@0800 07/12/13 500MG + D] Clopidogrel Bisulfate [Plavix] 75 mg PO DAILY 07/12/13 Doxepin HCl [Sinequan] 100 mg PO BID 07/12/13 Doxycycline Monohydrate [Monodox] 100 mg PO BID 07/12/13 [place]-3 Fatty Acids/Fish Oil [Fish 1 each PO DAILY 07/12/13 Oil 1,000 mg Softgel] ProMETHAzine Oral Solution 5 ml PO Q4H PRN PRN 07/12/13 [Phenergan Plain] Vitamin B12 500 mg PO DAILY 07/12/13 Vitamin C 500 mg PO DAILY 07/12/13 Prednisone [PredniSONE] 200 mg PO DAILY 07/03/14 Valacyclovir HCl [Valacyclovir] 500 mg PO DAILY 07/03/14 Smoking Status: Never smoker Tobacco Use: Non-smoker Review of Systems Constitutional: Denies: Chills, Fever, Weight Change Eyes: Denies: Pain, Vision Change HEENT: Denies: Difficulty Hearing, Difficulty Swallowing, Sinus Congestion Cardiovascular: Denies: Chest Pain, Palpitations Respiratory: Denies: Cough, Shortness of Breath Gastrointestinal: Denies: Diarrhea, Nausea, Vomiting Genitourinary: Denies: Dysuria, Hematuria Endocrine: Denies: Heat/ Cold Intolerance, Polydipsia, Polyuria Hematologic/ Lymphatic: Denies: Easy Bruising, Easy Bleeding - Physical Exam Vital Signs Temp Pulse Resp BP 98.7 F 71 16 146/79 H 11/24/17 11:12 11/24/17 11:12 11/24/17 11:12 11/24/17 11:12 General: Alert, Oriented x3, Cooperative, No apparent distress, Well developed, Well nourished HEENT: Atraumatic, PERRLA, EOMI, Normocephalic Oral: Moist Mucosa Neck: No JVD Lungs: Normal air movement Abdomen: Non-Distended Extremities: No clubbing, No cyanosis, No Calf Tenderness, - - Swelling and edema in the left lower extremity persist, most notably on the dorsum of the left foot. The ulceration on the left calf continues to diminish in size, with increasing areas of epithelialization. The size and configuration of the ulceration is irregular. Dimensions are documented elsewhere. There is a moderate amount of biofilm and bioburden. There is no sign of infection or cellulitis. There is evidence of healthy granulation tissue at the base of the ulceration. Wound Measurements and Assessment WC - Nurse 1 - General Ulcer Measurement Start: 11/24/17 11:12 Freq: Status: Active Protocol: Activity Type Activity Date Activity User E-Sign Co-Sign Detail Recorded Client Recorded Date Recorded By Document 11/24/17 11:12 DL [id number] 11/24/17 11:18 DL 11/24/17 11:12 Wound Center Nurse 1 [Ulcer Assessment Protocol: WC.WD.LOC] #3 Medial LLE -Current Size (cm) - Length 10 -Current Size (cm) - Width 5.3 -Current Size (cm) - Depth 0.2 -Total Square Cm 53.0 -Photo Taken No -Exudate Amt Large (67-100%) -Exudate Type Yellow/Green -Wound Margin Thickened -Granulation Amt Medium (34-66%) -Granulation Quality Red -Necrosis Amt Medium (34-66%) -Necrotic Tissue Type Adherent Slough -Structure Exposed N/A -Texture (Nahomy-wound Skin Appearance) Scarring -Color (Nahomy-wound Skin Appearance) Hemosiderin Staining -Temperature (Nahomy-wound Skin No Abnormality Appearance) (Pt Warm) -Tenderness on Palpation (Nahomy-wound No Skin Appearance) -Ulcer Cleansing Wound Cleanser -Foul Odor after Cleansing No -Anesthetic Used 4% Lidocaine Solution #4 Lateral LLE -Current Size (cm) - Length 10 -Current Size (cm) - Width 13 -Current Size (cm) - Depth 0.2 -Total Square Cm 130 -Photo Taken No -Exudate Amt Medium (34-66%) -Exudate Type Serosanguineous -Wound Margin Thickened -Granulation Amt Medium (34-66%) -Granulation Quality Red -Necrosis Amt Medium (34-66%) -Necrotic Tissue Type Adherent Slough -Structure Exposed N/A -Texture (Nahomy-wound Skin Appearance) Scarring -Moisture (Nahomy-wound Skin Appearance No Abnormality ) -Color (Nahomy-wound Skin Appearance) Hemosiderin Staining -Temperature (Nahomy-wound Skin No Abnormality Appearance) (Pt Warm) -Ulcer Cleansing Wound Cleanser -Foul Odor after Cleansing No -Anesthetic Used 4% Lidocaine Solution [Edema Assessment] -Left Calf (cm) 39 -Left Ankle (cm) 23.2 WC - Nurse 2 - General Ulcer CM Notes Start: 11/24/17 11:12 Freq: Status: Active Protocol: Activity Type Activity Date Activity User E-Sign Co-Sign Detail Recorded Client Recorded Date Recorded By Document 11/24/17 11:40 CARLOS [id number] 11/24/17 11:48 CARLOS 11/24/17 11:40 Wound Center Nurse 2 [Procedure/Treatment] #3 Medial LLE -Time 11:40 -Correct Patient Yes -Correct Side, Site, Position Yes -Correct Procedure Yes -Procedure Performed Yes -Type of Procedure Debridement -Clinical Debridement Subcutaneous -Post Debridement Size (cm) - Length 10.1 -Post Debridement Size (cm) - Width 5.4 -Post Debridement Size (cm) - Depth 0.2 -Total Square Cm 54.54 -Wound/Ulcer Outcome Not Healed -Ulcer Cleansing Rinsed/ Irrigated with Saline -Foul Odor after Cleansing No -Bioengineered Tissue No -Topical Lidocaine (%) 4 -Lidocaine (ml) 10 -Bleeding Controlled with NA -Treatment Response Procedure Tolerated Well #4 Lateral LLE -Time 11:46 -Correct Patient Yes -Correct Side, Site, Position Yes -Correct Procedure Yes -Procedure Performed Yes -Type of Procedure Debridement -Clinical Debridement Subcutaneous -Post Debridement Size (cm) - Length 10.1 -Post Debridement Size (cm) - Width 13.1 -Post Debridement Size (cm) - Depth 0.2 -Total Square Cm 132.31 -Ulcer Cleansing Rinsed/ Irrigated with Saline -Foul Odor after Cleansing No -Bioengineered Tissue No -Bleeding Controlled with NA -Treatment Response Procedure Tolerated Well [See Physician Procedure note for Specifics] Neurological: Cranial nerves II-XII grossly intact, Neuro grossly intact Psych/Mental Status: Normal Affect, Appropriate, Alert and oriented to time, place, person, mood and affect Debridement Note Post-Debridement Measurements/Treatment WC - Nurse 2 - General Ulcer CM Notes Start: 11/24/17 11:12 Freq: Status: Active Protocol: Activity Type Activity Date Activity User E-Sign Co-Sign Detail Recorded Client Recorded Date Recorded By Document 11/24/17 11:40 [id number] 11/24/17 11:48 11/24/17 11:40 Wound Center Nurse 2 #3 Medial LLE -Time 11:40 -Correct Patient Yes -Correct Side, Site, Position Yes -Correct Procedure Yes -Procedure Performed Yes -Type of Procedure Debridement -Clinical Debridement Subcutaneous -Post Debridement Size (cm) - Length 10.1 -Post Debridement Size (cm) - Width 5.4 -Post Debridement Size (cm) - Depth 0.2 -Total Square Cm 54.54 -Wound/Ulcer Outcome Not Healed -Ulcer Cleansing Rinsed/ Irrigated with Saline -Foul Odor after Cleansing No -Bioengineered Tissue No -Topical Lidocaine (%) 4 -Lidocaine (ml) 10 -Bleeding Controlled with NA -Treatment Response Procedure Tolerated Well #4 Lateral LLE -Time 11:46 -Correct Patient Yes -Correct Side, Site, Position Yes -Correct Procedure Yes -Procedure Performed Yes -Type of Procedure Debridement -Clinical Debridement Subcutaneous -Post Debridement Size (cm) - Length 10.1 -Post Debridement Size (cm) - Width 13.1 -Post Debridement Size (cm) - Depth 0.2 -Total Square Cm 132.31 -Ulcer Cleansing Rinsed/ Irrigated with Saline -Foul Odor after Cleansing No -Bioengineered Tissue No -Bleeding Controlled with NA -Treatment Response Procedure Tolerated Well Laterality: Left - Lower extremity Type of Debridement: Excisional debridement Anesthesia Used: 4% Lidocaine Solution Depth: Down to and including healthy tissue, in the subcutaneous layer Percentage of wound debrided: 100 Instrument Used: 5mm curette Severity: Fat Layer Exposed Amount of bleeding with debridement: Mild Bleeding Controlled with: Compression and gauze Patient tolerated procedure well Assessment/Plan Active Problems Chronic venous hypertension with inflammation involving left side (Chronic) Left leg swelling (Chronic) Varicose veins with ulcer and inflammation (Chronic) Leg edema, left (Chronic) Chronic venous insufficiency (Chronic) Lymphedema of left leg (Chronic) 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 She has a large irregular ulceration on the left lower extremity which is related to her venous disease. The patient has demonstrated slow but progressive improvement. The base of the ulceration appears generally pink and healthy, with a moderate amount of biofilm and bioburden. We are to continue leg elevation, avoidance of idle standing and sitting, compression by means of SurePress, active lifestyle, weight control measures,etc. She is to continue to take a well-balanced, nutritious diet. We are to continue with the use of Silvadene topically. This will be applied topically on a daily basis. Plan: As above. The patient will return in 2 weeks for reevaluation. We are to continue Silvadene topically. Her continuing improvement suggests that present measures are appropriate and providing the desired results. Current measures include leg elevation, avoidance of idle standing and sitting, activity as tolerated, weight control, and compression by means of SurePress, applied by the patient on a daily basis. She is to continue with the use of XtraSorb for moisture control. The ulceration continues to be exudative, and the patient has been encouraged to enhance the amount of time spent elevating her lower extremity, to help minimize the drainage. Patient is also to continue the use of Vasculera orally on a daily basis, which appears to have made significant improvement during the duration of its use. Patient will return in 2 weeks for reassessment. A renewal of the patient's prescription for Dilaudid has been provided, #30 pills, which the patient uses prior to her anticipated debridements. Patient weight is 160 pounds. Patient is 5 feet 9 inches tall. BMI is 23.6. We have discussed weight loss issues, the patient does not require counseling, as her BMI is reasonable. The patient is not a smoker. Influenza vaccine was not administered.
[2017-12-07 12:26] VITALS: BP 144/77; PULSE 73; RESP 16; TEMP 36.6
--- NOTE | 2017-12-07 13:17 | PCM.WC.HP ---
(1) Chronic venous hypertension with inflammation involving left side Status: Chronic Current Visit: Yes Code(s): I87.322 - Chronic venous hypertension (idiopathic) with inflammation of left lower extremity (2) Left leg swelling Status: Chronic Current Visit: Yes Code(s): M79.89 - Other specified soft tissue disorders (3) Varicose veins with ulcer and inflammation Status: Chronic Current Visit: Yes Code(s): I83.209 - Varicose veins of unspecified lower extremity with both ulcer of unspecified site and inflammation; L97.909 - Non-pressure chronic ulcer of unspecified part of unspecified lower leg with unspecified severity (4) Leg edema, left Status: Chronic Current Visit: Yes Code(s): R60.0 - Localized edema (5) History of DVT (deep vein thrombosis) Status: Chronic Current Visit: No Code(s): Z86.718 - Personal history of other venous thrombosis and embolism Comment: left lower ext (6) Chronic venous insufficiency Status: Chronic Current Visit: Yes (7) Lymphedema of left leg Status: Chronic Current Visit: Yes Code(s): I89.0 - Lymphedema, not elsewhere classified (8) 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 Status: Chronic Current Visit: Yes Code(s): I87.039 - Postthrombotic syndrome with ulcer and inflammation of unspecified lower extremity (9) Calf ulcer Status: Chronic Current Visit: Yes Qualifiers: Laterality: left Non-pressure ulcer stage: with fat layer exposed Qualified Code(s): L97.222 - Non-pressure chronic ulcer of left calf with fat layer exposed Code(s): L97.209 - Non-pressure chronic ulcer of unspecified calf with unspecified severity (10) chronic left lower ext wound Status: Chronic Current Visit: Yes History of Present Illness Date of Service: 12/07/17 Chief Complaint: Chronic venous insufficiency, chronic venous hypertension with inflammation and ulceration, varicose veins with inflammation and ulceration, post phlebitic syndrome with inflammation and ulceration,leg swelling, leg edema, lymphedema, venous stasis ulceration-left lower extremity History of Wound: This is a 77-year-old white female with a long-standing history of chronic venous disease and swelling in her left lower extremity. This has been present for many years. She has a large ulceration located between her left knee and ankle, which is quite large and irregular in shape, and also highly exudative. 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 She has also previously undergone successful endovenous laser ablation of the left great and small saphenous veins. Healing of the patient's left lower extremity ulceration has been slow, but progressive. A number of healing measures have been implemented in the past, without success. The patient is pleased with her current progress. We are currently using Silvadene topically and Xtrasorb for absorption of exudate. The patient's left calf ulceration continues to improve. It is smaller in size. The left lower extremity appears significantly improved, with increasing areas of epithelialization, and diminishing dimensions of her left lower extremity ulceration. 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 (Chronic) chronic left lower ext wound (Chronic) Surgical History: appendectomy, hysterectomy Allergies/Adverse Reactions: Allergies Latex, Natural Rubber Allergy (Verified 07/12/13 11:34) Rash Sulfa (Sulfonamide Antibiotics) Allergy (Verified 07/12/13 11:34) Hives trimethoprim Allergy (Verified 07/12/13 11:34) Hives Home Medications: Ambulatory Orders Medication Instructions Recorded Aspirin [Aspirin, Baby] 81 mg PO DAILY@0800 07/12/13 Calcium Carb/Vitamin D [Os-Mo 1 tablet PO DAILY@0800 07/12/13 500MG + D] Clopidogrel Bisulfate [Plavix] 75 mg PO DAILY 07/12/13 Doxepin HCl [Sinequan] 100 mg PO BID 07/12/13 Doxycycline Monohydrate [Monodox] 100 mg PO BID 07/12/13 Guthrie-3 Fatty Acids/Fish Oil [Fish 1 each PO DAILY 07/12/13 Oil 1,000 mg Softgel] ProMETHAzine Oral Solution 5 ml PO Q4H PRN PRN 07/12/13 [Phenergan Plain] Vitamin B12 500 mg PO DAILY 07/12/13 Vitamin C 500 mg PO DAILY 07/12/13 Prednisone [PredniSONE] 200 mg PO DAILY 07/03/14 Valacyclovir HCl [Valacyclovir] 500 mg PO DAILY 07/03/14 Smoking Status: Never smoker Tobacco Use: Non-smoker Review of Systems Constitutional: Denies: Chills, Fever, Weight Change Eyes: Denies: Pain, Vision Change HEENT: Denies: Difficulty Hearing, Difficulty Swallowing, Sinus Congestion Cardiovascular: Denies: Chest Pain, Palpitations Respiratory: Denies: Cough, Shortness of Breath Gastrointestinal: Denies: Diarrhea, Nausea, Vomiting Genitourinary: Denies: Dysuria, Hematuria Endocrine: Denies: Heat/ Cold Intolerance, Polydipsia, Polyuria Hematologic/ Lymphatic: Denies: Easy Bruising, Easy Bleeding - Physical Exam Vital Signs Temp Pulse Resp BP 98 F 73 16 144/77 H 12/07/17 12:26 12/07/17 12:26 12/07/17 12:26 12/07/17 12:26 General: Alert, Oriented x3, Cooperative, No apparent distress, Well developed, Well nourished HEENT: Atraumatic, PERRLA, EOMI, Normocephalic Oral: Moist Mucosa Neck: No JVD Lungs: Normal air movement Abdomen: Non-Distended Extremities: No clubbing, No cyanosis, No Calf Tenderness, Edema, - - The swelling and edema in the left lower extremity persists, relatively unchanged. It is noted most prominently on the dorsum of the left foot. The ulceration on the left calf is smaller in size. It remains irregular, and is clustered. Dimensions are documented elsewhere. There is a moderate amount of biofilm and bioburden. There is no sign of infection or cellulitis. Wound Measurements and Assessment WC - Nurse 1 - General Ulcer Measurement Start: 11/24/17 11:12 Freq: Status: Active Protocol: Activity Type Activity Date Activity User E-Sign Co-Sign Detail Recorded Client Recorded Date Recorded By Document 12/07/17 12:26 [facility] [id number] 12/07/17 12:40 [facility] 12/07/17 12:26 Wound Center Nurse 1 [Ulcer Assessment] #3 Medial LLE -Combined with other wound No -Current Size (cm) - Length 10.2 -Current Size (cm) - Width 6.1 -Current Size (cm) - Depth 0.1 -Total Square Cm 62.22 -Date of Last Picture (Recall this 12/07/17 field) -Photo Taken Yes -Epithelialization None Present -Tunneling No -Undermining/Tunneling No -Exudate Amt Large (67-100%) -Exudate Type Serosanguineous -Wound Margin Distinct, Outline Attached -Granulation Amt Small (1-33%) -Granulation Quality Red -Slough/Fibrin Yes -Necrosis Amt Large (67-100%) -Necrotic Tissue Type Adherent Slough -Structure Exposed N/A -Texture (Nahomy-wound Skin Appearance) Scarring -Moisture (Nahomy-wound Skin Appearance Maceration ) Dry/Scaly -Color (Nahomy-wound Skin Appearance) Erythema -Temperature (Nahomy-wound Skin No Abnormality Appearance) (Pt Warm) -Tenderness on Palpation (Nahomy-wound No Skin Appearance) -Ulcer Cleansing Rinsed/ Irrigated with Saline -Foul Odor after Cleansing No -Anesthetic Used 4% Lidocaine Solution #4 Lateral LLE -Combined with other wound No -Current Size (cm) - Length 10.6 -Current Size (cm) - Width 12.5 -Current Size (cm) - Depth 0.1 -Total Square Cm 132.50 -Date of Last Picture (Recall this 12/07/17 field) -Photo Taken Yes -Epithelialization None Present -Tunneling No -Undermining/Tunneling No -Exudate Amt Large (67-100%) -Exudate Type Serosanguineous -Wound Margin Distinct, Outline Attached -Granulation Amt Small (1-33%) -Granulation Quality Red -Slough/Fibrin Yes -Necrosis Amt Large (67-100%) -Necrotic Tissue Type Adherent Slough -Structure Exposed N/A -Texture (Nahomy-wound Skin Appearance) Scarring -Moisture (Nahomy-wound Skin Appearance Maceration ) Dry/Scaly -Color (Nahomy-wound Skin Appearance) Erythema -Temperature (Nahomy-wound Skin No Abnormality Appearance) (Pt Warm) -Tenderness on Palpation (Nahomy-wound No Skin Appearance) -Ulcer Cleansing Rinsed/ Irrigated with Saline -Foul Odor after Cleansing No -Anesthetic Used 4% Lidocaine Solution [Edema Assessment] -Lower Limb Edema Present Yes -Left Calf (cm) 37.4 -Left Ankle (cm) 27.6 WC - Nurse 2 - General Ulcer CM Notes Start: 11/24/17 11:12 Freq: Status: Active Protocol: Activity Type Activity Date Activity User E-Sign Co-Sign Detail Recorded Client Recorded Date Recorded By Document 12/07/17 13:07 [id number] 12/07/17 13:14 JS 12/07/17 13:07 Wound Center Nurse 2 [Procedure/Treatment] #3 Medial LLE -Time 13:08 -Correct Patient Yes -Correct Side, Site, Position Yes -Correct Procedure Yes -Procedure Performed Yes -Type of Procedure Debridement -Clinical Debridement Subcutaneous -Post Debridement Size (cm) - Length 10.3 -Post Debridement Size (cm) - Width 6.2 -Post Debridement Size (cm) - Depth 0.1 -Total Square Cm 63.86 -Wound/Ulcer Outcome Not Healed -Ulcer Cleansing Rinsed/ Irrigated with Saline -Foul Odor after Cleansing No -Bioengineered Tissue No -Lidocaine (ml) 10 -Bleeding Controlled with NA -Treatment Response Procedure Tolerated Well #4 Lateral LLE -Time 13:08 -Correct Patient Yes -Correct Side, Site, Position Yes -Correct Procedure Yes -Procedure Performed Yes -Type of Procedure Debridement -Clinical Debridement Subcutaneous -Post Debridement Size (cm) - Length 10.7 -Post Debridement Size (cm) - Width 12.6 -Post Debridement Size (cm) - Depth 0.2 -Total Square Cm 134.82 -Wound/Ulcer Outcome Not Healed -Ulcer Cleansing Rinsed/ Irrigated with Saline -Foul Odor after Cleansing No -Topical Lidocaine (%) 4 -Lidocaine (ml) 10 -Bleeding Controlled with NA -Treatment Response Procedure Tolerated Well [See Physician Procedure note for Specifics] Pain Scale: 0-10 Numeric [Pain] -Is Patient Pain Free? Yes Neurological: Cranial nerves II-XII grossly intact, Neuro grossly intact Psych/Mental Status: Normal Affect, Appropriate, Alert and oriented to time, place, person, mood and affect Debridement Note Post-Debridement Measurements/Treatment WC - Nurse 2 - General Ulcer CM Notes Start: 11/24/17 11:12 Freq: Status: Active Protocol: Activity Type Activity Date Activity User E-Sign Co-Sign Detail Recorded Client Recorded Date Recorded By Document 11/24/17 11:40 [id number] 11/24/17 11:48 JS Document 12/07/17 13:07 [id number] 12/07/17 13:14 11/24/17 12/07/17 11:40 13:07 Wound Center Nurse 2 #3 [facility] LLE -Time 11:40 13:08 -Correct Patient Yes Yes -Correct Side, Site, Position Yes Yes -Correct Procedure Yes Yes -Procedure Performed Yes Yes -Type of Procedure Debridement Debridement -Clinical Debridement Subcutaneous Subcutaneous -Post Debridement Size (cm) - Length 10.1 10.3 -Post Debridement Size (cm) - Width 5.4 6.2 -Post Debridement Size (cm) - Depth 0.2 0.1 -Total Square Cm 54.54 63.86 -Wound/Ulcer Outcome Not Healed Not Healed -Ulcer Cleansing Rinsed/ Rinsed/ Irrigated with Irrigated with Saline Saline -Foul Odor after Cleansing No No -Bioengineered Tissue No No -Topical Lidocaine (%) 4 -Lidocaine (ml) 10 10 -Bleeding Controlled with NA NA -Treatment Response Procedure Procedure Tolerated Well Tolerated Well #4 Lateral LLE -Time 11:46 13:08 -Correct Patient Yes Yes -Correct Side, Site, Position Yes Yes -Correct Procedure Yes Yes -Procedure Performed Yes Yes -Type of Procedure Debridement Debridement -Clinical Debridement Subcutaneous Subcutaneous -Post Debridement Size (cm) - Length 10.1 10.7 -Post Debridement Size (cm) - Width 13.1 12.6 -Post Debridement Size (cm) - Depth 0.2 0.2 -Total Square Cm 132.31 134.82 -Wound/Ulcer Outcome Not Healed -Ulcer Cleansing Rinsed/ Rinsed/ Irrigated with Irrigated with Saline Saline -Foul Odor after Cleansing No No -Bioengineered Tissue No -Topical Lidocaine (%) 4 -Lidocaine (ml) 10 -Bleeding Controlled with NA NA -Treatment Response Procedure Procedure Tolerated Well Tolerated Well Pain Scale: 0-10 Numeric Is Patient Pain Free? Yes Laterality: Left - Calf Type of Debridement: Excisional debridement Anesthesia Used: 4% Lidocaine Solution Depth: Down to and including healthy tissue, in the subcutaneous layer Percentage of wound debrided: 100 Instrument Used: 5mm curette Severity: Fat Layer Exposed Amount of bleeding with debridement: Mild Bleeding Controlled with: Compression and gauze Patient tolerated procedure well Assessment/Plan Active Problems Chronic venous hypertension with inflammation involving left side (Chronic) Left leg swelling (Chronic) Varicose veins with ulcer and inflammation (Chronic) Leg edema, left (Chronic) Chronic venous insufficiency (Chronic) Lymphedema of left leg (Chronic) 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 She has a large irregular ulceration on the left lower extremity which is related to her venous disease. The patient has demonstrated slow but progressive improvement. The base of the ulceration appears generally pink and healthy, with a moderate amount of biofilm and bioburden. We are to continue leg elevation, avoidance of idle standing and sitting, compression by means of SurePress, active lifestyle, weight control measures,etc. She is to continue to take a well-balanced, nutritious diet. We are to continue with the use of Silvadene topically. This will be applied topically on a daily basis. Plan: As above. The patient will return in 2 weeks for reevaluation. We are to continue Silvadene topically. Her continuing improvement suggests that present measures are appropriate and providing the desired results. Current measures include leg elevation, avoidance of idle standing and sitting, activity as tolerated, weight control, and compression by means of SurePress, applied by the patient on a daily basis. She is to continue with the use of XtraSorb for moisture control. The ulceration continues to be exudative, and the patient has been encouraged to enhance the amount of time spent elevating her lower extremity, to help minimize the drainage. Patient is also to continue the use of Vasculera orally on a daily basis, which appears to have made significant improvement during the duration of its use. Patient will return in 2 weeks for reassessment. Patient weight is 160 pounds. Patient is 5 feet 9 inches tall. BMI is 23.6. We have discussed weight loss issues, the patient does not require counseling, as her BMI is reasonable. The patient is not a smoker. Influenza vaccine was not administered.
--- NOTE | 2017-12-07 13:20 | HP.PCM_ITS ---
(1) Chronic venous hypertension with inflammation involving left side Status: Chronic Current Visit: Yes Code(s): I87.322 - Chronic venous hypertension (idiopathic) with inflammation of left lower extremity (2) Left leg swelling Status: Chronic Current Visit: Yes Code(s): M79.89 - Other specified soft tissue disorders (3) Varicose veins with ulcer and inflammation Status: Chronic Current Visit: Yes Code(s): I83.209 - Varicose veins of unspecified lower extremity with both ulcer of unspecified site and inflammation ; L97.909 - Non-pressure chronic ulcer of unspecified part of unspecified lower leg with unspecified severity (4) Leg edema, left Status: Chronic Current Visit: Yes Code(s): R60.0 - Localized edema (5) History of DVT (deep vein thrombosis) Status: Chronic Current Visit: No Code(s): Z86.718 - Personal history of other venous thrombosis and embolism Comment: left lower ext (6) Chronic venous insufficiency Status: Chronic Current Visit: Yes (7) Lymphedema of left leg Status: Chronic Current Visit: Yes Code(s): I89.0 - Lymphedema, not elsewhere classified (8) 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 Status: Chronic Current Visit: Yes Code(s): I87.039 - Postthrombotic syndrome with ulcer and inflammation of unspecified lower extremity (9) Calf ulcer Status: Chronic Current Visit: Yes Qualifiers: Laterality: left Non-pressure ulcer stage: with fat layer exposed Qualified Code(s): L97.222 - Non-pressure chronic ulcer of left calf with fat layer exposed Code(s): L97.209 - Non-pressure chronic ulcer of unspecified calf with unspecified severity (10) chronic left lower ext wound Status: Chronic Current Visit: Yes History of Present Illness Date of Service: 12/07/17 Chief Complaint: Chronic venous insufficiency, chronic venous hypertension with inflammation and ulceration, varicose veins with inflammation and ulceration, post phlebitic syndrome with inflammation and ulceration,leg swelling, leg edema , lymphedema, venous stasis ulceration-left lower extremity History of Wound: This is a 77-year-old white female with a long-standing history of chronic venous disease and swelling in her left lower extremity. This has been present for many years. She has a large ulceration located between her left knee and ankle, which is quite large and irregular in shape, and also highly exudative. 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 She has also previously undergone successful endovenous laser ablation of the left great and small saphenous veins. Healing of the patient's left lower extremity ulceration has been slow, but progressive. A number of healing measures have been implemented in the past , without success. The patient is pleased with her current progress. We are currently using Silvadene topically and Xtrasorb for absorption of exudate. The patient's left calf ulceration continues to improve. It is smaller in size. The left lower extremity appears significantly improved, with increasing areas of epithelialization, and diminishing dimensions of her left lower extremity ulceration. 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 (Chronic) chronic left lower ext wound (Chronic) Surgical History: appendectomy, hysterectomy Allergies/Adverse Reactions: Allergies Latex, Natural Rubber Allergy (Verified 07/12/13 11:34) Rash Sulfa (Sulfonamide Antibiotics) Allergy (Verified 07/12/13 11:34) Hives trimethoprim Allergy (Verified 07/12/13 11:34) Hives Home Medications: Ambulatory Orders Medication Instructions Recorded Aspirin [Aspirin, Baby] 81 mg PO DAILY@0800 07/12/13 Calcium Carb/Vitamin D [Os-Mo 1 tablet PO DAILY@0800 07/12/13 500MG + D] Clopidogrel Bisulfate [Plavix] 75 mg PO DAILY 07/12/13 Doxepin HCl [Sinequan] 100 mg PO BID 07/12/13 Doxycycline Monohydrate [Monodox] 100 mg PO BID 07/12/13 [place]-3 Fatty Acids/Fish Oil [Fish 1 each PO DAILY 07/12/13 Oil 1,000 mg Softgel] ProMETHAzine Oral Solution 5 ml PO Q4H PRN PRN 07/12/13 [Phenergan Plain] Vitamin B12 500 mg PO DAILY 07/12/13 Vitamin C 500 mg PO DAILY 07/12/13 Prednisone [PredniSONE] 200 mg PO DAILY 07/03/14 Valacyclovir HCl [Valacyclovir] 500 mg PO DAILY 07/03/14 Smoking Status: Never smoker Tobacco Use: Non-smoker Review of Systems Constitutional: Denies: Chills, Fever, Weight Change Eyes: Denies: Pain, Vision Change HEENT: Denies: Difficulty Hearing, Difficulty Swallowing, Sinus Congestion Cardiovascular: Denies: Chest Pain, Palpitations Respiratory: Denies: Cough, Shortness of Breath Gastrointestinal: Denies: Diarrhea, Nausea, Vomiting Genitourinary: Denies: Dysuria, Hematuria Endocrine: Denies: Heat/ Cold Intolerance, Polydipsia, Polyuria Hematologic/ Lymphatic: Denies: Easy Bruising, Easy Bleeding - Physical Exam Vital Signs Temp Pulse Resp BP 98 F 73 16 144/77 H 12/07/17 12:26 12/07/17 12:26 12/07/17 12:26 12/07/17 12:26 General: Alert, Oriented x3, Cooperative, No apparent distress, Well developed, Well nourished HEENT: Atraumatic, PERRLA, EOMI, Normocephalic Oral: Moist Mucosa Neck: No JVD Lungs: Normal air movement Abdomen: Non-Distended Extremities: No clubbing, No cyanosis, No Calf Tenderness, Edema, - - The swelling and edema in the left lower extremity persists, relatively unchanged. It is noted most prominently on the dorsum of the left foot. The ulceration on the left calf is smaller in size. It remains irregular, and is clustered. Dimensions are documented elsewhere. There is a moderate amount of biofilm and bioburden. There is no sign of infection or cellulitis. Wound Measurements and Assessment WC - Nurse 1 - General Ulcer Measurement Start: 11/24/17 11:12 Freq: Status: Active Protocol: Activity Type Activity Date Activity User E-Sign Co-Sign Detail Recorded Client Recorded Date Recorded By Document 12/07/17 12:26 [facility] [id number] 12/07/17 12:40 [facility] 12/07/17 12:26 Wound Center Nurse 1 [Ulcer Assessment] #3 Medial LLE -Combined with other wound No -Current Size (cm) - Length 10.2 -Current Size (cm) - Width 6.1 -Current Size (cm) - Depth 0.1 -Total Square Cm 62.22 -Date of Last Picture (Recall this 12/07/17 field) -Photo Taken Yes -Epithelialization None Present -Tunneling No -Undermining/Tunneling No -Exudate Amt Large (67-100%) -Exudate Type Serosanguineous -Wound Margin Distinct, Outline Attached -Granulation Amt Small (1-33%) -Granulation Quality Red -Slough/Fibrin Yes -Necrosis Amt Large (67-100%) -Necrotic Tissue Type Adherent Slough -Structure Exposed N/A -Texture (Nahomy-wound Skin Appearance) Scarring -Moisture (Nahomy-wound Skin Appearance Maceration ) Dry/Scaly -Color (Nahomy-wound Skin Appearance) Erythema -Temperature (Nahomy-wound Skin No Abnormality Appearance) (Pt Warm) -Tenderness on Palpation (Nahomy-wound No Skin Appearance) -Ulcer Cleansing Rinsed/ Irrigated with Saline -Foul Odor after Cleansing No -Anesthetic Used 4% Lidocaine Solution #4 Lateral LLE -Combined with other wound No -Current Size (cm) - Length 10.6 -Current Size (cm) - Width 12.5 -Current Size (cm) - Depth 0.1 -Total Square Cm 132.50 -Date of Last Picture (Recall this 12/07/17 field) -Photo Taken Yes -Epithelialization None Present -Tunneling No -Undermining/Tunneling No -Exudate Amt Large (67-100%) -Exudate Type Serosanguineous -Wound Margin Distinct, Outline Attached -Granulation Amt Small (1-33%) -Granulation Quality Red -Slough/Fibrin Yes -Necrosis Amt Large (67-100%) -Necrotic Tissue Type Adherent Slough -Structure Exposed N/A -Texture (Nahomy-wound Skin Appearance) Scarring -Moisture (Nahomy-wound Skin Appearance Maceration ) Dry/Scaly -Color (Nahomy-wound Skin Appearance) Erythema -Temperature (Nahomy-wound Skin No Abnormality Appearance) (Pt Warm) -Tenderness on Palpation (Nahomy-wound No Skin Appearance) -Ulcer Cleansing Rinsed/ Irrigated with Saline -Foul Odor after Cleansing No -Anesthetic Used 4% Lidocaine Solution [Edema Assessment] -Lower Limb Edema Present Yes -Left Calf (cm) 37.4 -Left Ankle (cm) 27.6 WC - Nurse 2 - General Ulcer CM Notes Start: 11/24/17 11:12 Freq: Status: Active Protocol: Activity Type Activity Date Activity User E-Sign Co-Sign Detail Recorded Client Recorded Date Recorded By Document 12/07/17 13:07 [id number] 12/07/17 13:14 JS 12/07/17 13:07 Wound Center Nurse 2 [Procedure/Treatment] #3 Medial LLE -Time 13:08 -Correct Patient Yes -Correct Side, Site, Position Yes -Correct Procedure Yes -Procedure Performed Yes -Type of Procedure Debridement -Clinical Debridement Subcutaneous -Post Debridement Size (cm) - Length 10.3 -Post Debridement Size (cm) - Width 6.2 -Post Debridement Size (cm) - Depth 0.1 -Total Square Cm 63.86 -Wound/Ulcer Outcome Not Healed -Ulcer Cleansing Rinsed/ Irrigated with Saline -Foul Odor after Cleansing No -Bioengineered Tissue No -Lidocaine (ml) 10 -Bleeding Controlled with NA -Treatment Response Procedure Tolerated Well #4 Lateral LLE -Time 13:08 -Correct Patient Yes -Correct Side, Site, Position Yes -Correct Procedure Yes -Procedure Performed Yes -Type of Procedure Debridement -Clinical Debridement Subcutaneous -Post Debridement Size (cm) - Length 10.7 -Post Debridement Size (cm) - Width 12.6 -Post Debridement Size (cm) - Depth 0.2 -Total Square Cm 134.82 -Wound/Ulcer Outcome Not Healed -Ulcer Cleansing Rinsed/ Irrigated with Saline -Foul Odor after Cleansing No -Topical Lidocaine (%) 4 -Lidocaine (ml) 10 -Bleeding Controlled with NA -Treatment Response Procedure Tolerated Well [See Physician Procedure note for Specifics] Pain Scale: 0-10 Numeric [Pain] -Is Patient Pain Free? Yes Neurological: Cranial nerves II-XII grossly intact, Neuro grossly intact Psych/Mental Status: Normal Affect, Appropriate, Alert and oriented to time, place, person, mood and affect Debridement Note Post-Debridement Measurements/Treatment WC - Nurse 2 - General Ulcer CM Notes Start: 11/24/17 11:12 Freq: Status: Active Protocol: Activity Type Activity Date Activity User E-Sign Co-Sign Detail Recorded Client Recorded Date Recorded By Document 11/24/17 11:40 [id number] 11/24/17 11:48 JS Document 12/07/17 13:07 [id number] 12/07/17 13:14 11/24/17 12/07/17 11:40 13:07 Wound Center Nurse 2 #3 [facility] LLE -Time 11:40 13:08 -Correct Patient Yes Yes -Correct Side, Site, Position Yes Yes -Correct Procedure Yes Yes -Procedure Performed Yes Yes -Type of Procedure Debridement Debridement -Clinical Debridement Subcutaneous Subcutaneous -Post Debridement Size (cm) - Length 10.1 10.3 -Post Debridement Size (cm) - Width 5.4 6.2 -Post Debridement Size (cm) - Depth 0.2 0.1 -Total Square Cm 54.54 63.86 -Wound/Ulcer Outcome Not Healed Not Healed -Ulcer Cleansing Rinsed/ Rinsed/ Irrigated with Irrigated with Saline Saline -Foul Odor after Cleansing No No -Bioengineered Tissue No No -Topical Lidocaine (%) 4 -Lidocaine (ml) 10 10 -Bleeding Controlled with NA NA -Treatment Response Procedure Procedure Tolerated Well Tolerated Well #4 Lateral LLE -Time 11:46 13:08 -Correct Patient Yes Yes -Correct Side, Site, Position Yes Yes -Correct Procedure Yes Yes -Procedure Performed Yes Yes -Type of Procedure Debridement Debridement -Clinical Debridement Subcutaneous Subcutaneous -Post Debridement Size (cm) - Length 10.1 10.7 -Post Debridement Size (cm) - Width 13.1 12.6 -Post Debridement Size (cm) - Depth 0.2 0.2 -Total Square Cm 132.31 134.82 -Wound/Ulcer Outcome Not Healed -Ulcer Cleansing Rinsed/ Rinsed/ Irrigated with Irrigated with Saline Saline -Foul Odor after Cleansing No No -Bioengineered Tissue No -Topical Lidocaine (%) 4 -Lidocaine (ml) 10 -Bleeding Controlled with NA NA -Treatment Response Procedure Procedure Tolerated Well Tolerated Well Pain Scale: 0-10 Numeric Is Patient Pain Free? Yes Laterality: Left - Calf Type of Debridement: Excisional debridement Anesthesia Used: 4% Lidocaine Solution Depth: Down to and including healthy tissue, in the subcutaneous layer Percentage of wound debrided: 100 Instrument Used: 5mm curette Severity: Fat Layer Exposed Amount of bleeding with debridement: Mild Bleeding Controlled with: Compression and gauze Patient tolerated procedure well Assessment/Plan Active Problems Chronic venous hypertension with inflammation involving left side (Chronic) Left leg swelling (Chronic) Varicose veins with ulcer and inflammation (Chronic) Leg edema, left (Chronic) Chronic venous insufficiency (Chronic) Lymphedema of left leg (Chronic) 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 She has a large irregular ulceration on the left lower extremity which is related to her venous disease. The patient has demonstrated slow but progressive improvement. The base of the ulceration appears generally pink and healthy, with a moderate amount of biofilm and bioburden. We are to continue leg elevation, avoidance of idle standing and sitting, compression by means of SurePress, active lifestyle, weight control measures,etc. She is to continue to take a well-balanced, nutritious diet. We are to continue with the use of Silvadene topically. This will be applied topically on a daily basis. Plan: As above. The patient will return in 2 weeks for reevaluation. We are to continue Silvadene topically. Her continuing improvement suggests that present measures are appropriate and providing the desired results. Current measures include leg elevation, avoidance of idle standing and sitting, activity as tolerated, weight control, and compression by means of SurePress, applied by the patient on a daily basis. She is to continue with the use of XtraSorb for moisture control. The ulceration continues to be exudative, and the patient has been encouraged to enhance the amount of time spent elevating her lower extremity, to help minimize the drainage. Patient is also to continue the use of Vasculera orally on a daily basis, which appears to have made significant improvement during the duration of its use. Patient will return in 2 weeks for reassessment. Patient weight is 160 pounds. Patient is 5 feet 9 inches tall. BMI is 23.6. We have discussed weight loss issues, the patient does not require counseling, as her BMI is reasonable. The patient is not a smoker. Influenza vaccine was not administered.
== END 2017-12-09 23:59 ==
LOC: WC 12:30
PROVIDERS: Visit Provider Surgery
DX: I83.222 Varicose veins of left lower extremity with both ulcer of calf and inflammation (principal); L97.222 Non-pressure chronic ulcer of left calf with fat layer exposed; I89.0 Lymphedema, not elsewhere classified; Z86.718 Personal history of other venous thrombosis and embolism; R60.0 Localized edema; Z79.899 Other long term (current) drug therapy; Z79.82 Long term (current) use of aspirin; Z79.02 Long term (current) use of antithrombotics/antiplatelets; Z79.52 Long term (current) use of systemic steroids
CPT/HCPCS: 11042; 11045

== ENCOUNTER 2018-01-04 12:30 | Outpatient (RCR) | payer MEDICARE, BC, SELFPAY ==
[2017-12-10 00:32] VITALS: BP 145/79; PULSE 73; RESP 16; TEMP 36.6
[2017-12-21 12:29] VITALS: BP 149/64; PULSE 65; RESP 18; TEMP 36.6
--- NOTE | 2017-12-21 13:17 | HP.PCM_ITS ---
(1) Chronic venous hypertension with inflammation involving left side Status: Chronic Current Visit: Yes Code(s): I87.322 - Chronic venous hypertension (idiopathic) with inflammation of left lower extremity (2) Left leg swelling Status: Chronic Current Visit: Yes Code(s): M79.89 - Other specified soft tissue disorders (3) Varicose veins with ulcer and inflammation Status: Chronic Current Visit: Yes Code(s): I83.209 - Varicose veins of unspecified lower extremity with both ulcer of unspecified site and inflammation ; L97.909 - Non-pressure chronic ulcer of unspecified part of unspecified lower leg with unspecified severity (4) Leg edema, left Status: Chronic Current Visit: Yes Code(s): R60.0 - Localized edema (5) May-Thurner syndrome Status: Resolved Current Visit: No Code(s): I87.1 - Compression of vein (6) History of DVT (deep vein thrombosis) Status: Chronic Current Visit: No Code(s): Z86.718 - Personal history of other venous thrombosis and embolism Comment: left lower ext (7) dermatomycosis leg Status: Inactive Current Visit: No (8) Cellulitis, leg Status: Resolved Current Visit: No Qualifiers: Code(s): L03.119 - Cellulitis of unspecified part of limb (9) Erythema of skin Status: Resolved Current Visit: No Code(s): L53.9 - Erythematous condition, unspecified (10) Cellulitis of leg Status: Resolved Current Visit: No Qualifiers: Code(s): L03.119 - Cellulitis of unspecified part of limb (11) Cellulitis Status: Resolved Current Visit: No Code(s): L03.90 - Cellulitis, unspecified (12) Chronic venous insufficiency Status: Chronic Current Visit: Yes (13) Lymphedema of left leg Status: Chronic Current Visit: Yes Code(s): I89.0 - Lymphedema, not elsewhere classified (14) 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 Status: Chronic Current Visit: Yes Code(s): I87.039 - Postthrombotic syndrome with ulcer and inflammation of unspecified lower extremity (15) Calf ulcer Status: Chronic Current Visit: Yes Qualifiers: Laterality: left Non-pressure ulcer stage: with fat layer exposed Qualified Code(s): L97.222 - Non-pressure chronic ulcer of left calf with fat layer exposed Code(s): L97.209 - Non-pressure chronic ulcer of unspecified calf with unspecified severity (16) chronic left lower ext wound Status: Chronic Current Visit: Yes History of Present Illness Date of Service: 12/21/17 Chief Complaint: Chronic venous insufficiency, chronic venous hypertension with inflammation and ulceration, varicose veins with inflammation and ulceration, post phlebitic syndrome with inflammation and ulceration,leg swelling, leg edema , lymphedema, venous stasis ulceration-left lower extremity History of Wound: This is a 77-year-old white female with a long-standing history of chronic venous disease and swelling in her left lower extremity. This has been present for many years. She has a large ulceration located between her left knee and ankle, which is quite large and irregular in shape, and also highly exudative. 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 She has also previously undergone successful endovenous laser ablation of the left great and small saphenous veins. Healing of the patient's left lower extremity ulceration has been slow, but progressive. A number of healing measures have been implemented in the past , without success. The patient is pleased with her current progress. We are currently using Silvadene topically and Xtrasorb for absorption of exudate. The patient's left calf ulceration continues to improve. It is smaller in size. The left lower extremity appears significantly improved, with increasing areas of epithelialization, and diminishing dimensions of her left lower extremity ulceration. 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 (Chronic) chronic left lower ext wound (Chronic) Surgical History: appendectomy, hysterectomy Allergies/Adverse Reactions: Allergies Latex, Natural Rubber Allergy (Verified 07/12/13 11:34) Rash Sulfa (Sulfonamide Antibiotics) Allergy (Verified 07/12/13 11:34) Hives trimethoprim Allergy (Verified 07/12/13 11:34) Hives Home Medications: Ambulatory Orders Medication Instructions Recorded Aspirin [Aspirin, Baby] 81 mg PO DAILY@0800 07/12/13 Calcium Carb/Vitamin D [Os-Mo 1 tablet PO DAILY@0800 07/12/13 500MG + D] Clopidogrel Bisulfate [Plavix] 75 mg PO DAILY 07/12/13 Doxepin HCl [Sinequan] 100 mg PO BID 07/12/13 Doxycycline Monohydrate [Monodox] 100 mg PO BID 07/12/13 [place]-3 Fatty Acids/Fish Oil [Fish 1 each PO DAILY 07/12/13 Oil 1,000 mg Softgel] ProMETHAzine Oral Solution 5 ml PO Q4H PRN PRN 07/12/13 [Phenergan Plain] Vitamin B12 500 mg PO DAILY 07/12/13 Vitamin C 500 mg PO DAILY 07/12/13 Prednisone [PredniSONE] 200 mg PO DAILY 07/03/14 Valacyclovir HCl [Valacyclovir] 500 mg PO DAILY 07/03/14 Smoking Status: Never smoker Tobacco Use: Non-smoker Review of Systems Constitutional: Denies: Chills, Fever, Weight Change Eyes: Denies: Pain, Vision Change HEENT: Denies: Difficulty Hearing, Difficulty Swallowing, Sinus Congestion Cardiovascular: Denies: Chest Pain, Palpitations Respiratory: Denies: Cough, Shortness of Breath Gastrointestinal: Denies: Diarrhea, Nausea, Vomiting Genitourinary: Denies: Dysuria, Hematuria Endocrine: Denies: Heat/ Cold Intolerance, Polydipsia, Polyuria Hematologic/ Lymphatic: Denies: Easy Bruising, Easy Bleeding - Physical Exam Vital Signs Temp Pulse Resp BP 97.9 F 65 18 149/64 H 12/21/17 12:29 12/21/17 12:29 12/21/17 12:29 12/21/17 12:29 General: Alert, Oriented x3, Cooperative, No apparent distress, Well developed, Well nourished HEENT: Atraumatic, PERRLA, EOMI, Normocephalic Oral: Moist Mucosa Neck: No JVD Lungs: Normal air movement Abdomen: Non-Distended Extremities: No clubbing, No cyanosis, No Calf Tenderness, - - Swelling and edema in the left lower extremity persist, noted most prominently on the dorsum of the left foot. This is chronic in nature. The ulceration of the left calf remains irregular in shape, with diminution in size. Dimensions are documented elsewhere. There is a moderate amount of bioburden. There is no sign of infection or cellulitis. Circumference measurements are documented elsewhere. Wound Measurements and Assessment WC - Nurse 1 - General Ulcer Measurement Start: 12/21/17 12:29 Freq: Status: Active Protocol: Activity Type Activity Date Activity User E-Sign Co-Sign Detail Recorded Client Recorded Date Recorded By Document 12/21/17 12:29 DL [id number] 12/21/17 12:36 DL 12/21/17 12:29 Wound Center Nurse 1 [Ulcer Assessment] #3 Medial LLE -Current Size (cm) - Length 10 -Current Size (cm) - Width 5 -Current Size (cm) - Depth 0.2 -Total Square Cm 50 -Photo Taken No -Exudate Amt Medium (34-66%) -Exudate Type Serosanguineous -Wound Margin Distinct, Outline Attached -Granulation Amt Medium (34-66%) -Granulation Quality Red -Necrosis Amt Medium (34-66%) -Necrotic Tissue Type Adherent Slough -Structure Exposed N/A -Texture (Nahomy-wound Skin Appearance) Scarring -Moisture (Nahomy-wound Skin Appearance No Abnormality ) -Color (Nahomy-wound Skin Appearance) Hemosiderin Staining -Temperature (Nahomy-wound Skin No Abnormality Appearance) (Pt Warm) -Ulcer Cleansing Wound Cleanser -Foul Odor after Cleansing No -Anesthetic Used 4% Lidocaine Solution #4 Lateral LLE -Current Size (cm) - Length 10.5 -Current Size (cm) - Width 13 -Current Size (cm) - Depth 0.2 -Total Square Cm 136.5 -Photo Taken No -Exudate Amt Medium (34-66%) -Exudate Type Serosanguineous -Wound Margin Distinct, Outline Attached -Granulation Amt Medium (34-66%) -Granulation Quality Red -Necrosis Amt Medium (34-66%) -Necrotic Tissue Type Adherent Slough -Structure Exposed N/A -Texture (Nahomy-wound Skin Appearance) Scarring -Moisture (Nahomy-wound Skin Appearance No Abnormality ) -Color (Nahomy-wound Skin Appearance) Hemosiderin Staining -Ulcer Cleansing Wound Cleanser -Foul Odor after Cleansing No -Anesthetic Used 4% Lidocaine Solution [Edema Assessment] -Left Calf (cm) 38 -Left Ankle (cm) 25 Musculoskeletal: No Muscle Wasting Neurological: Cranial nerves II-XII grossly intact, Neuro grossly intact Psych/Mental Status: Normal Affect, Appropriate, Alert and oriented to time, place, person, mood and affect Debridement Note Laterality: Left - Calf Type of Debridement: Excisional debridement Anesthesia Used: 4% Lidocaine Solution Depth: Down to and including healthy tissue, in the subcutaneous layer Percentage of wound debrided: 100 Instrument Used: 5mm curette Severity: Fat Layer Exposed Amount of bleeding with debridement: Mild Bleeding Controlled with: Compression and gauze Patient tolerated procedure well Assessment/Plan Active Problems Chronic venous hypertension with inflammation involving left side (Chronic) Left leg swelling (Chronic) Varicose veins with ulcer and inflammation (Chronic) Leg edema, left (Chronic) Chronic venous insufficiency (Chronic) Lymphedema of left leg (Chronic) 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 She has a large irregular ulceration on the left lower extremity which is related to her venous disease. The patient has demonstrated slow but progressive improvement. The base of the ulceration appears generally pink and healthy, with a moderate amount of biofilm and bioburden. We are to continue leg elevation, avoidance of idle standing and sitting, compression by means of SurePress, active lifestyle, weight control measures,etc. She is to continue to take a well-balanced, nutritious diet. We are to continue with the use of Silvadene topically. This will be applied topically on a daily basis. Plan: As above. The patient will return in 2 weeks for reevaluation. We are to continue Silvadene topically. Her continuing improvement suggests that present measures are appropriate and providing the desired results. Current measures include leg elevation, avoidance of idle standing and sitting, activity as tolerated, weight control, and compression by means of SurePress, applied by the patient on a daily basis. She is to continue with the use of XtraSorb for moisture control. The ulceration continues to be exudative, and the patient has been encouraged to enhance the amount of time spent elevating her lower extremity, to help minimize the drainage. Patient is also to continue the use of Vasculera orally on a daily basis, which appears to have made significant improvement. Patient will return in 2 weeks for reassessment. Patient weight is 160 pounds. Patient is 5 feet 9 inches tall. BMI is 23.6. We have discussed weight loss issues, the patient does not require counseling , as her BMI is reasonable. The patient is not a smoker. Influenza vaccine was not administered.
[2018-01-04 12:43] VITALS: BP 146/66; PULSE 66; RESP 18; TEMP 36.7
--- NOTE | 2018-01-04 13:33 | PCM.WC.HP ---
(1) Chronic venous hypertension with inflammation involving left side Status: Chronic Current Visit: Yes Code(s): I87.322 - Chronic venous hypertension (idiopathic) with inflammation of left lower extremity (2) Left leg swelling Status: Chronic Current Visit: Yes Code(s): M79.89 - Other specified soft tissue disorders (3) Varicose veins with ulcer and inflammation Status: Chronic Current Visit: Yes Code(s): I83.209 - Varicose veins of unspecified lower extremity with both ulcer of unspecified site and inflammation; L97.909 - Non-pressure chronic ulcer of unspecified part of unspecified lower leg with unspecified severity (4) Leg edema, left Status: Chronic Current Visit: Yes Code(s): R60.0 - Localized edema (5) History of DVT (deep vein thrombosis) Status: Chronic Current Visit: No Code(s): Z86.718 - Personal history of other venous thrombosis and embolism Comment: left lower ext (6) Chronic venous insufficiency Status: Chronic Current Visit: Yes (7) Lymphedema of left leg Status: Chronic Current Visit: Yes Code(s): I89.0 - Lymphedema, not elsewhere classified (8) 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 Status: Chronic Current Visit: Yes Code(s): I87.039 - Postthrombotic syndrome with ulcer and inflammation of unspecified lower extremity (9) Calf ulcer Status: Chronic Current Visit: Yes Qualifiers: Laterality: left Non-pressure ulcer stage: with fat layer exposed Qualified Code(s): L97.222 - Non-pressure chronic ulcer of left calf with fat layer exposed Code(s): L97.209 - Non-pressure chronic ulcer of unspecified calf with unspecified severity (10) chronic left lower ext wound Status: Chronic Current Visit: Yes History of Present Illness Date of Service: 01/04/18 Chief Complaint: Chronic venous insufficiency, chronic venous hypertension with inflammation and ulceration, varicose veins with inflammation and ulceration, post phlebitic syndrome with inflammation and ulceration,leg swelling, leg edema, lymphedema, venous stasis ulceration-left lower extremity History of Wound: This is a 77-year-old white female with a long-standing history of chronic venous disease and swelling in her left lower extremity. This has been present for many years. She has a large ulceration located between her left knee and ankle, which is quite large and irregular in shape, and also highly exudative. 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 She has also previously undergone successful endovenous laser ablation of the left great and small saphenous veins. Healing of the patient's left lower extremity ulceration has been slow, but progressive. A number of healing measures have been implemented in the past, without success. The patient is pleased with her current progress. We are currently using Silvadene topically and Xtrasorb for absorption of exudate. The patient's left calf ulceration continues to improve. It is smaller in size. The left lower extremity appears significantly improved, with increasing areas of epithelialization, and diminishing dimensions of her left lower extremity ulceration. 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 (Chronic) chronic left lower ext wound (Chronic) Surgical History: appendectomy, hysterectomy Allergies/Adverse Reactions: Allergies Latex, Natural Rubber Allergy (Verified 07/12/13 11:34) Rash Sulfa (Sulfonamide Antibiotics) Allergy (Verified 07/12/13 11:34) Hives trimethoprim Allergy (Verified 07/12/13 11:34) Hives Home Medications: Ambulatory Orders Medication Instructions Recorded Aspirin [Aspirin, Baby] 81 mg PO DAILY@0800 07/12/13 Calcium Carb/Vitamin D [Os-Mo 1 tablet PO DAILY@0800 07/12/13 500MG + D] Clopidogrel Bisulfate [Plavix] 75 mg PO DAILY 07/12/13 Doxepin HCl [Sinequan] 100 mg PO BID 07/12/13 Doxycycline Monohydrate [Monodox] 100 mg PO BID 07/12/13 [place]-3 Fatty Acids/Fish Oil [Fish 1 each PO DAILY 07/12/13 Oil 1,000 mg Softgel] Vitamin B12 500 mg PO DAILY 07/12/13 Vitamin C 500 mg PO DAILY 07/12/13 proMETHazine soln (6.25mg/5mL) 5 ml PO Q4H PRN PRN 07/12/13 [Phenergan Plain] Prednisone [PredniSONE] 200 mg PO DAILY 07/03/14 Valacyclovir HCl [Valacyclovir] 500 mg PO DAILY 07/03/14 Smoking Status: Never smoker Tobacco Use: Non-smoker Review of Systems Constitutional: Denies: Chills, Fever, Weight Change Eyes: Denies: Pain, Vision Change HEENT: Denies: Difficulty Hearing, Difficulty Swallowing, Sinus Congestion Cardiovascular: Denies: Chest Pain, Palpitations Respiratory: Denies: Cough, Shortness of Breath Gastrointestinal: Denies: Diarrhea, Nausea, Vomiting Genitourinary: Denies: Dysuria, Hematuria Endocrine: Denies: Heat/ Cold Intolerance, Polydipsia, Polyuria Hematologic/ Lymphatic: Denies: Easy Bruising, Easy Bleeding - Physical Exam Vital Signs Temp Pulse Resp BP 98.0 F 66 18 146/66 H 01/04/18 12:43 01/04/18 12:43 01/04/18 12:43 01/04/18 12:43 General: Alert, Oriented x3, Cooperative, No apparent distress, Well developed, Well nourished HEENT: Atraumatic, PERRLA, EOMI, Normocephalic Oral: Moist Mucosa Neck: No JVD Lungs: Normal air movement Abdomen: Non-Distended Extremities: No clubbing, No cyanosis, No edema, No Calf Tenderness, - - The swelling and edema in the left lower extremity persist, noted particularly on the dorsum of the left foot. Circumference measurements are documented elsewhere. The patient's ulceration continues to diminish in size, with increasing areas of epithelialization. The base of the ulceration demonstrates a moderate amount of bioburden. Dimensions of the ulceration are documented elsewhere. Wound Measurements and Assessment WC - Nurse 1 - General Ulcer Measurement Start: 12/21/17 12:29 Freq: Status: Active Protocol: Activity Type Activity Date Activity User E-Sign Co-Sign Detail Recorded Client Recorded Date Recorded By Document 01/04/18 12:43 DV [id number] 01/04/18 12:47 DV 01/04/18 12:43 Wound Center Nurse 1 [Ulcer Assessment] #3 Medial LLE -Combined with other wound No -Current Size (cm) - Length 10.3 -Current Size (cm) - Width 6.1 -Current Size (cm) - Depth 0.2 -Total Square Cm 62.83 -Date of Last Picture (Recall this 01/04/18 field) -Photo Taken Yes -Epithelialization None Present -Tunneling No -Undermining/Tunneling No -Classification - Thickness Full Thickness without Exposed Support Structure -Exudate Amt Medium (34-66%) -Exudate Type Serosanguineous -Wound Margin Fibrotic Scar, Thickened Scar -Granulation Amt Medium (34-66%) -Granulation Quality [place] -Slough/Fibrin Yes -Necrosis Amt Large (67-100%) -Necrotic Tissue Type Adherent Slough -Structure Exposed None/Limited to Skin Breakdown -Texture (Nahomy-wound Skin Appearance) Assessed Localized Edema Scarring -Moisture (Nahomy-wound Skin Appearance Assessed ) Weeping -Color (Nahomy-wound Skin Appearance) Assessed Erythema -Temperature (Nahomy-wound Skin No Abnormality Appearance) (Pt Warm) -Tenderness on Palpation (Nahomy-wound No Skin Appearance) -Ulcer Cleansing Wound Cleanser -Foul Odor after Cleansing No -Anesthetic Used 4% Lidocaine Solution #4 Lateral LLE -Combined with other wound No -Current Size (cm) - Length 10.0 -Current Size (cm) - Width 11.0 -Current Size (cm) - Depth 0.2 -Total Square Cm 110.00 -Photo Taken Yes -Epithelialization None Present -Tunneling No -Undermining/Tunneling No -Circular Undermining No -Classification - Thickness Full Thickness without Exposed Support Structure -Exudate Amt Large (67-100%) -Exudate Type Serosanguineous -Wound Margin Fibrotic Scar, Thickened Scar -Granulation Amt Small (1-33%) -Granulation Quality [place] -Slough/Fibrin Yes -Necrosis Amt Large (67-100%) -Necrotic Tissue Type Adherent Slough -Structure Exposed None/Limited to Skin Breakdown -Texture (Nahomy-wound Skin Appearance) Assessed Localized Edema Scarring -Moisture (Nahomy-wound Skin Appearance Assessed ) Weeping -Color (Nahoym-wound Skin Appearance) Assessed Erythema -Temperature (Nahomy-wound Skin No Abnormality Appearance) (Pt Warm) -Ulcer Cleansing Wound Cleanser -Foul Odor after Cleansing No -Anesthetic Used 4% Lidocaine Solution [Edema Assessment] -Lower Limb Edema Present Yes -Left Calf (cm) 33.0 -Left Ankle (cm) 27.0 WC - Nurse 2 - General Ulcer CM Notes Start: 12/21/17 12:29 Freq: Status: Active Protocol: Activity Type Activity Date Activity User E-Sign Co-Sign Detail Recorded Client Recorded Date Recorded By Document 01/04/18 13:10 [id number] 01/04/18 13:15 01/04/18 13:10 Wound Center Nurse 2 [Procedure/Treatment] #3 Medial LLE -Time 13:10 -Correct Patient Yes -Correct Side, Site, Position Yes -Correct Procedure Yes -Procedure Performed Yes -Type of Procedure Debridement -Clinical Debridement Subcutaneous -Post Debridement Size (cm) - Length 10 -Post Debridement Size (cm) - Width 5.5 -Post Debridement Size (cm) - Depth 0.1 -Total Square Cm 55.0 -Wound/Ulcer Outcome Amputation Anticipated -Ulcer Cleansing Rinsed/ Irrigated with Saline -Foul Odor after Cleansing No -Bioengineered Tissue No -Topical Lidocaine (%) 4 -Lidocaine (ml) 10 -Bleeding Controlled with NA -Treatment Response Procedure Tolerated Well #4 Lateral LLE -Time 13:11 -Correct Patient Yes -Correct Side, Site, Position Yes -Correct Procedure Yes -Procedure Performed Yes -Type of Procedure Debridement -Clinical Debridement Subcutaneous -Post Debridement Size (cm) - Length 11.0 -Post Debridement Size (cm) - Width 10.4 -Post Debridement Size (cm) - Depth 0.1 -Total Square Cm 114.40 -Wound/Ulcer Outcome Not Healed -Ulcer Cleansing Rinsed/ Irrigated with Saline -Foul Odor after Cleansing No -Bioengineered Tissue No -Topical Lidocaine (%) 4 -Lidocaine (ml) 10 -Bleeding Controlled with NA -Treatment Response Procedure Tolerated Well [See Physician Procedure note for Specifics] Pain Scale: 0-10 Numeric [Pain] -Is Patient Pain Free? Yes Musculoskeletal: No Muscle Wasting Neurological: Cranial nerves II-XII grossly intact, Neuro grossly intact Psych/Mental Status: Normal Affect, Appropriate, Alert and oriented to time, place, person, mood and affect Debridement Note Post-Debridement Measurements/Treatment WC - Nurse 2 - General Ulcer CM Notes Start: 12/21/17 12:29 Freq: Status: Active Protocol: Activity Type Activity Date Activity User E-Sign Co-Sign Detail Recorded Client Recorded Date Recorded By Document 12/21/17 13:05 [id number] 12/21/17 13:16 Document 01/04/18 13:10 [id number] 01/04/18 13:15 JS 12/21/17 01/04/18 13:05 13:10 Wound Center Nurse 2 #3 [facility] LLE -Time 13:05 13:10 -Correct Patient Yes Yes -Correct Side, Site, Position Yes Yes -Correct Procedure Yes Yes -Procedure Performed Yes Yes -Type of Procedure Debridement Debridement -Clinical Debridement Subcutaneous Subcutaneous -Post Debridement Size (cm) - Length 10.2 10 -Post Debridement Size (cm) - Width 8.5 5.5 -Post Debridement Size (cm) - Depth 0.2 0.1 -Total Square Cm 86.70 55.0 -Wound/Ulcer Outcome Not Healed Amputation Anticipated -Ulcer Cleansing Rinsed/ Rinsed/ Irrigated with Irrigated with Saline Saline -Foul Odor after Cleansing No No -Bioengineered Tissue No No -Topical Lidocaine (%) 4 -Injectable Lidocaine (%) 4 -Lidocaine (ml) 15 10 -Bleeding Controlled with NA NA -Treatment Response Procedure Procedure Tolerated Well Tolerated Well #4 Lateral LLE -Time 13:06 13:11 -Correct Patient Yes Yes -Correct Side, Site, Position Yes Yes -Correct Procedure Yes Yes -Procedure Performed Yes Yes -Type of Procedure Debridement Debridement -Clinical Debridement Subcutaneous Subcutaneous -Post Debridement Size (cm) - Length 10.5 11.0 -Post Debridement Size (cm) - Width 9.0 10.4 -Post Debridement Size (cm) - Depth 0.2 0.1 -Total Square Cm 94.50 114.40 -Wound/Ulcer Outcome Not Healed Not Healed -Ulcer Cleansing Rinsed/ Rinsed/ Irrigated with Irrigated with Saline Saline -Foul Odor after Cleansing No No -Bioengineered Tissue No No -Topical Lidocaine (%) 4 4 -Injectable Lidocaine (%) 10 -Lidocaine (ml) 10 -Bleeding Controlled with NA NA -Treatment Response Procedure Procedure Tolerated Well Tolerated Well Pain Scale: 0-10 Numeric Is Patient Pain Free? Yes Yes Laterality: Left - Calf Type of Debridement: Excisional debridement Anesthesia Used: 4% Lidocaine Solution Depth: Down to and including healthy tissue, in the subcutaneous layer Percentage of wound debrided: 100 Instrument Used: 5mm curette Severity: Fat Layer Exposed Amount of bleeding with debridement: Mild Bleeding Controlled with: Compression and gauze Patient tolerated procedure well Assessment/Plan Active Problems Chronic venous hypertension with inflammation involving left side (Chronic) Left leg swelling (Chronic) Varicose veins with ulcer and inflammation (Chronic) Leg edema, left (Chronic) Chronic venous insufficiency (Chronic) Lymphedema of left leg (Chronic) 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 She has a large irregular ulceration on the left lower extremity which is related to her venous disease. The patient has demonstrated slow but progressive improvement. The base of the ulceration appears generally pink and healthy, with a moderate amount of biofilm and bioburden. We are to continue leg elevation, avoidance of idle standing and sitting, compression by means of SurePress, active lifestyle, weight control measures,etc. She is to continue to take a well-balanced, nutritious diet. We are to continue with the use of Silvadene topically. This will be applied topically on a daily basis. Plan: As above. The patient will return in 2 weeks for reevaluation. We are to continue Silvadene topically. Her continuing improvement suggests that present measures are appropriate and providing the desired results. Current measures include leg elevation, avoidance of idle standing and sitting, activity as tolerated, weight control, and compression by means of SurePress, applied by the patient on a daily basis. She is to continue with the use of XtraSorb for moisture control. The ulceration continues to be exudative, and the patient has been encouraged to enhance the amount of time spent elevating her lower extremity, to help minimize the drainage. Patient is also to continue the use of Vasculera orally on a daily basis, which appears to have made significant improvement. Patient will return in 2 weeks for reassessment. Patient weight is 160 pounds. Patient is 5 feet 9 inches tall. BMI is 23.6. We have discussed weight loss issues, the patient does not require counseling, as her BMI is reasonable. The patient is not a smoker. Influenza vaccine was not administered.
--- NOTE | 2018-01-04 13:36 | HP.PCM_ITS ---
(1) Chronic venous hypertension with inflammation involving left side Status: Chronic Current Visit: Yes Code(s): I87.322 - Chronic venous hypertension (idiopathic) with inflammation of left lower extremity (2) Left leg swelling Status: Chronic Current Visit: Yes Code(s): M79.89 - Other specified soft tissue disorders (3) Varicose veins with ulcer and inflammation Status: Chronic Current Visit: Yes Code(s): I83.209 - Varicose veins of unspecified lower extremity with both ulcer of unspecified site and inflammation ; L97.909 - Non-pressure chronic ulcer of unspecified part of unspecified lower leg with unspecified severity (4) Leg edema, left Status: Chronic Current Visit: Yes Code(s): R60.0 - Localized edema (5) History of DVT (deep vein thrombosis) Status: Chronic Current Visit: No Code(s): Z86.718 - Personal history of other venous thrombosis and embolism Comment: left lower ext (6) Chronic venous insufficiency Status: Chronic Current Visit: Yes (7) Lymphedema of left leg Status: Chronic Current Visit: Yes Code(s): I89.0 - Lymphedema, not elsewhere classified (8) 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 Status: Chronic Current Visit: Yes Code(s): I87.039 - Postthrombotic syndrome with ulcer and inflammation of unspecified lower extremity (9) Calf ulcer Status: Chronic Current Visit: Yes Qualifiers: Laterality: left Non-pressure ulcer stage: with fat layer exposed Qualified Code(s): L97.222 - Non-pressure chronic ulcer of left calf with fat layer exposed Code(s): L97.209 - Non-pressure chronic ulcer of unspecified calf with unspecified severity (10) chronic left lower ext wound Status: Chronic Current Visit: Yes History of Present Illness Date of Service: 01/04/18 Chief Complaint: Chronic venous insufficiency, chronic venous hypertension with inflammation and ulceration, varicose veins with inflammation and ulceration, post phlebitic syndrome with inflammation and ulceration,leg swelling, leg edema , lymphedema, venous stasis ulceration-left lower extremity History of Wound: This is a 77-year-old white female with a long-standing history of chronic venous disease and swelling in her left lower extremity. This has been present for many years. She has a large ulceration located between her left knee and ankle, which is quite large and irregular in shape, and also highly exudative. 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 She has also previously undergone successful endovenous laser ablation of the left great and small saphenous veins. Healing of the patient's left lower extremity ulceration has been slow, but progressive. A number of healing measures have been implemented in the past , without success. The patient is pleased with her current progress. We are currently using Silvadene topically and Xtrasorb for absorption of exudate. The patient's left calf ulceration continues to improve. It is smaller in size. The left lower extremity appears significantly improved, with increasing areas of epithelialization, and diminishing dimensions of her left lower extremity ulceration. 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 (Chronic) chronic left lower ext wound (Chronic) Surgical History: appendectomy, hysterectomy Allergies/Adverse Reactions: Allergies Latex, Natural Rubber Allergy (Verified 07/12/13 11:34) Rash Sulfa (Sulfonamide Antibiotics) Allergy (Verified 07/12/13 11:34) Hives trimethoprim Allergy (Verified 07/12/13 11:34) Hives Home Medications: Ambulatory Orders Medication Instructions Recorded Aspirin [Aspirin, Baby] 81 mg PO DAILY@0800 07/12/13 Calcium Carb/Vitamin D [Os-Mo 1 tablet PO DAILY@0800 07/12/13 500MG + D] Clopidogrel Bisulfate [Plavix] 75 mg PO DAILY 07/12/13 Doxepin HCl [Sinequan] 100 mg PO BID 07/12/13 Doxycycline Monohydrate [Monodox] 100 mg PO BID 07/12/13 [place]-3 Fatty Acids/Fish Oil [Fish 1 each PO DAILY 07/12/13 Oil 1,000 mg Softgel] Vitamin B12 500 mg PO DAILY 07/12/13 Vitamin C 500 mg PO DAILY 07/12/13 proMETHazine soln (6.25mg/5mL) 5 ml PO Q4H PRN PRN 07/12/13 [Phenergan Plain] Prednisone [PredniSONE] 200 mg PO DAILY 07/03/14 Valacyclovir HCl [Valacyclovir] 500 mg PO DAILY 07/03/14 Smoking Status: Never smoker Tobacco Use: Non-smoker Review of Systems Constitutional: Denies: Chills, Fever, Weight Change Eyes: Denies: Pain, Vision Change HEENT: Denies: Difficulty Hearing, Difficulty Swallowing, Sinus Congestion Cardiovascular: Denies: Chest Pain, Palpitations Respiratory: Denies: Cough, Shortness of Breath Gastrointestinal: Denies: Diarrhea, Nausea, Vomiting Genitourinary: Denies: Dysuria, Hematuria Endocrine: Denies: Heat/ Cold Intolerance, Polydipsia, Polyuria Hematologic/ Lymphatic: Denies: Easy Bruising, Easy Bleeding - Physical Exam Vital Signs Temp Pulse Resp BP 98.0 F 66 18 146/66 H 01/04/18 12:43 01/04/18 12:43 01/04/18 12:43 01/04/18 12:43 General: Alert, Oriented x3, Cooperative, No apparent distress, Well developed, Well nourished HEENT: Atraumatic, PERRLA, EOMI, Normocephalic Oral: Moist Mucosa Neck: No JVD Lungs: Normal air movement Abdomen: Non-Distended Extremities: No clubbing, No cyanosis, No edema, No Calf Tenderness, - - The swelling and edema in the left lower extremity persist, noted particularly on the dorsum of the left foot. Circumference measurements are documented elsewhere. The patient's ulceration continues to diminish in size, with increasing areas of epithelialization. The base of the ulceration demonstrates a moderate amount of bioburden. Dimensions of the ulceration are documented elsewhere. Wound Measurements and Assessment WC - Nurse 1 - General Ulcer Measurement Start: 12/21/17 12:29 Freq: Status: Active Protocol: Activity Type Activity Date Activity User E-Sign Co-Sign Detail Recorded Client Recorded Date Recorded By Document 01/04/18 12:43 DV [id number] 01/04/18 12:47 DV 01/04/18 12:43 Wound Center Nurse 1 [Ulcer Assessment] #3 Medial LLE -Combined with other wound No -Current Size (cm) - Length 10.3 -Current Size (cm) - Width 6.1 -Current Size (cm) - Depth 0.2 -Total Square Cm 62.83 -Date of Last Picture (Recall this 01/04/18 field) -Photo Taken Yes -Epithelialization None Present -Tunneling No -Undermining/Tunneling No -Classification - Thickness Full Thickness without Exposed Support Structure -Exudate Amt Medium (34-66%) -Exudate Type Serosanguineous -Wound Margin Fibrotic Scar, Thickened Scar -Granulation Amt Medium (34-66%) -Granulation Quality [place] -Slough/Fibrin Yes -Necrosis Amt Large (67-100%) -Necrotic Tissue Type Adherent Slough -Structure Exposed None/Limited to Skin Breakdown -Texture (Nahomy-wound Skin Appearance) Assessed Localized Edema Scarring -Moisture (Nahomy-wound Skin Appearance Assessed ) Weeping -Color (Nahomy-wound Skin Appearance) Assessed Erythema -Temperature (Nahomy-wound Skin No Abnormality Appearance) (Pt Warm) -Tenderness on Palpation (Nahomy-wound No Skin Appearance) -Ulcer Cleansing Wound Cleanser -Foul Odor after Cleansing No -Anesthetic Used 4% Lidocaine Solution #4 Lateral LLE -Combined with other wound No -Current Size (cm) - Length 10.0 -Current Size (cm) - Width 11.0 -Current Size (cm) - Depth 0.2 -Total Square Cm 110.00 -Photo Taken Yes -Epithelialization None Present -Tunneling No -Undermining/Tunneling No -Circular Undermining No -Classification - Thickness Full Thickness without Exposed Support Structure -Exudate Amt Large (67-100%) -Exudate Type Serosanguineous -Wound Margin Fibrotic Scar, Thickened Scar -Granulation Amt Small (1-33%) -Granulation Quality [place] -Slough/Fibrin Yes -Necrosis Amt Large (67-100%) -Necrotic Tissue Type Adherent Slough -Structure Exposed None/Limited to Skin Breakdown -Texture (Nahomy-wound Skin Appearance) Assessed Localized Edema Scarring -Moisture (Nahomy-wound Skin Appearance Assessed ) Weeping -Color (Nahomy-wound Skin Appearance) Assessed Erythema -Temperature (Nahomy-wound Skin No Abnormality Appearance) (Pt Warm) -Ulcer Cleansing Wound Cleanser -Foul Odor after Cleansing No -Anesthetic Used 4% Lidocaine Solution [Edema Assessment] -Lower Limb Edema Present Yes -Left Calf (cm) 33.0 -Left Ankle (cm) 27.0 WC - Nurse 2 - General Ulcer CM Notes Start: 12/21/17 12:29 Freq: Status: Active Protocol: Activity Type Activity Date Activity User E-Sign Co-Sign Detail Recorded Client Recorded Date Recorded By Document 01/04/18 13:10 [id number] 01/04/18 13:15 01/04/18 13:10 Wound Center Nurse 2 [Procedure/Treatment] #3 Medial LLE -Time 13:10 -Correct Patient Yes -Correct Side, Site, Position Yes -Correct Procedure Yes -Procedure Performed Yes -Type of Procedure Debridement -Clinical Debridement Subcutaneous -Post Debridement Size (cm) - Length 10 -Post Debridement Size (cm) - Width 5.5 -Post Debridement Size (cm) - Depth 0.1 -Total Square Cm 55.0 -Wound/Ulcer Outcome Amputation Anticipated -Ulcer Cleansing Rinsed/ Irrigated with Saline -Foul Odor after Cleansing No -Bioengineered Tissue No -Topical Lidocaine (%) 4 -Lidocaine (ml) 10 -Bleeding Controlled with NA -Treatment Response Procedure Tolerated Well #4 Lateral LLE -Time 13:11 -Correct Patient Yes -Correct Side, Site, Position Yes -Correct Procedure Yes -Procedure Performed Yes -Type of Procedure Debridement -Clinical Debridement Subcutaneous -Post Debridement Size (cm) - Length 11.0 -Post Debridement Size (cm) - Width 10.4 -Post Debridement Size (cm) - Depth 0.1 -Total Square Cm 114.40 -Wound/Ulcer Outcome Not Healed -Ulcer Cleansing Rinsed/ Irrigated with Saline -Foul Odor after Cleansing No -Bioengineered Tissue No -Topical Lidocaine (%) 4 -Lidocaine (ml) 10 -Bleeding Controlled with NA -Treatment Response Procedure Tolerated Well [See Physician Procedure note for Specifics] Pain Scale: 0-10 Numeric [Pain] -Is Patient Pain Free? Yes Musculoskeletal: No Muscle Wasting Neurological: Cranial nerves II-XII grossly intact, Neuro grossly intact Psych/Mental Status: Normal Affect, Appropriate, Alert and oriented to time, place, person, mood and affect Debridement Note Post-Debridement Measurements/Treatment WC - Nurse 2 - General Ulcer CM Notes Start: 12/21/17 12:29 Freq: Status: Active Protocol: Activity Type Activity Date Activity User E-Sign Co-Sign Detail Recorded Client Recorded Date Recorded By Document 12/21/17 13:05 [id number] 12/21/17 13:16 Document 01/04/18 13:10 [email or web address] 01/04/18 13:15 JS 12/21/17 01/04/18 13:05 13:10 Wound Center Nurse 2 #3 [facility] LLE -Time 13:05 13:10 -Correct Patient Yes Yes -Correct Side, Site, Position Yes Yes -Correct Procedure Yes Yes -Procedure Performed Yes Yes -Type of Procedure Debridement Debridement -Clinical Debridement Subcutaneous Subcutaneous -Post Debridement Size (cm) - Length 10.2 10 -Post Debridement Size (cm) - Width 8.5 5.5 -Post Debridement Size (cm) - Depth 0.2 0.1 -Total Square Cm 86.70 55.0 -Wound/Ulcer Outcome Not Healed Amputation Anticipated -Ulcer Cleansing Rinsed/ Rinsed/ Irrigated with Irrigated with Saline Saline -Foul Odor after Cleansing No No -Bioengineered Tissue No No -Topical Lidocaine (%) 4 -Injectable Lidocaine (%) 4 -Lidocaine (ml) 15 10 -Bleeding Controlled with NA NA -Treatment Response Procedure Procedure Tolerated Well Tolerated Well #4 Lateral LLE -Time 13:06 13:11 -Correct Patient Yes Yes -Correct Side, Site, Position Yes Yes -Correct Procedure Yes Yes -Procedure Performed Yes Yes -Type of Procedure Debridement Debridement -Clinical Debridement Subcutaneous Subcutaneous -Post Debridement Size (cm) - Length 10.5 11.0 -Post Debridement Size (cm) - Width 9.0 10.4 -Post Debridement Size (cm) - Depth 0.2 0.1 -Total Square Cm 94.50 114.40 -Wound/Ulcer Outcome Not Healed Not Healed -Ulcer Cleansing Rinsed/ Rinsed/ Irrigated with Irrigated with Saline Saline -Foul Odor after Cleansing No No -Bioengineered Tissue No No -Topical Lidocaine (%) 4 4 -Injectable Lidocaine (%) 10 -Lidocaine (ml) 10 -Bleeding Controlled with NA NA -Treatment Response Procedure Procedure Tolerated Well Tolerated Well Pain Scale: 0-10 Numeric Is Patient Pain Free? Yes Yes Laterality: Left - Calf Type of Debridement: Excisional debridement Anesthesia Used: 4% Lidocaine Solution Depth: Down to and including healthy tissue, in the subcutaneous layer Percentage of wound debrided: 100 Instrument Used: 5mm curette Severity: Fat Layer Exposed Amount of bleeding with debridement: Mild Bleeding Controlled with: Compression and gauze Patient tolerated procedure well Assessment/Plan Active Problems Chronic venous hypertension with inflammation involving left side (Chronic) Left leg swelling (Chronic) Varicose veins with ulcer and inflammation (Chronic) Leg edema, left (Chronic) Chronic venous insufficiency (Chronic) Lymphedema of left leg (Chronic) 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 She has a large irregular ulceration on the left lower extremity which is related to her venous disease. The patient has demonstrated slow but progressive improvement. The base of the ulceration appears generally pink and healthy, with a moderate amount of biofilm and bioburden. We are to continue leg elevation, avoidance of idle standing and sitting, compression by means of SurePress, active lifestyle, weight control measures,etc. She is to continue to take a well-balanced, nutritious diet. We are to continue with the use of Silvadene topically. This will be applied topically on a daily basis. Plan: As above. The patient will return in 2 weeks for reevaluation. We are to continue Silvadene topically. Her continuing improvement suggests that present measures are appropriate and providing the desired results. Current measures include leg elevation, avoidance of idle standing and sitting, activity as tolerated, weight control, and compression by means of SurePress, applied by the patient on a daily basis. She is to continue with the use of XtraSorb for moisture control. The ulceration continues to be exudative, and the patient has been encouraged to enhance the amount of time spent elevating her lower extremity, to help minimize the drainage. Patient is also to continue the use of Vasculera orally on a daily basis, which appears to have made significant improvement. Patient will return in 2 weeks for reassessment. Patient weight is 160 pounds. Patient is 5 feet 9 inches tall. BMI is 23.6. We have discussed weight loss issues, the patient does not require counseling , as her BMI is reasonable. The patient is not a smoker. Influenza vaccine was not administered.
== END 2018-01-09 23:59 ==
LOC: WC 12:30
PROVIDERS: Visit Provider Surgery
DX: I83.222 Varicose veins of left lower extremity with both ulcer of calf and inflammation (principal); L97.222 Non-pressure chronic ulcer of left calf with fat layer exposed; R60.0 Localized edema; I89.0 Lymphedema, not elsewhere classified; M79.89 Other specified soft tissue disorders; I87.322 Chronic venous hypertension (idiopathic) with inflammation of left lower extremity; I87.2 Venous insufficiency (chronic) (peripheral); Z86.718 Personal history of other venous thrombosis and embolism; Z79.899 Other long term (current) drug therapy; Z79.02 Long term (current) use of antithrombotics/antiplatelets; Z79.82 Long term (current) use of aspirin; Z79.52 Long term (current) use of systemic steroids
CPT/HCPCS: 11042; 11045

== ENCOUNTER 2018-02-01 12:30 | Outpatient (RCR) | payer MEDICARE, BC, SELFPAY ==
[2018-01-10 00:31] VITALS: BP 145/79; PULSE 66; RESP 18; TEMP 36.7
[2018-01-18 13:01] VITALS: BP 137/75; PULSE 66; RESP 16; TEMP 36.7
--- NOTE | 2018-01-18 13:27 | PCM.WC.HP ---
(1) Chronic venous hypertension with inflammation involving left side Status: Chronic Current Visit: Yes Code(s): I87.322 - Chronic venous hypertension (idiopathic) with inflammation of left lower extremity (2) Left leg swelling Status: Chronic Current Visit: Yes Code(s): M79.89 - Other specified soft tissue disorders (3) Varicose veins with ulcer and inflammation Status: Chronic Current Visit: Yes Code(s): I83.209 - Varicose veins of unspecified lower extremity with both ulcer of unspecified site and inflammation; L97.909 - Non-pressure chronic ulcer of unspecified part of unspecified lower leg with unspecified severity (4) Leg edema, left Status: Chronic Current Visit: Yes Code(s): R60.0 - Localized edema (5) May-Thurner syndrome Status: Resolved Current Visit: No Code(s): I87.1 - Compression of vein (6) History of DVT (deep vein thrombosis) Status: Chronic Current Visit: No Code(s): Z86.718 - Personal history of other venous thrombosis and embolism Comment: left lower ext (7) dermatomycosis leg Status: Inactive Current Visit: No (8) Cellulitis, leg Status: Resolved Current Visit: No Qualifiers: Code(s): L03.119 - Cellulitis of unspecified part of limb (9) Erythema of skin Status: Resolved Current Visit: No Code(s): L53.9 - Erythematous condition, unspecified (10) Cellulitis of leg Status: Resolved Current Visit: No Qualifiers: Code(s): L03.119 - Cellulitis of unspecified part of limb (11) Cellulitis Status: Resolved Current Visit: No Code(s): L03.90 - Cellulitis, unspecified (12) Chronic venous insufficiency Status: Chronic Current Visit: Yes (13) Lymphedema of left leg Status: Chronic Current Visit: Yes Code(s): I89.0 - Lymphedema, not elsewhere classified (14) 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 Status: Chronic Current Visit: Yes Code(s): I87.039 - Postthrombotic syndrome with ulcer and inflammation of unspecified lower extremity (15) Calf ulcer Status: Chronic Current Visit: Yes Qualifiers: Laterality: left Non-pressure ulcer stage: with fat layer exposed Qualified Code(s): L97.222 - Non-pressure chronic ulcer of left calf with fat layer exposed Code(s): L97.209 - Non-pressure chronic ulcer of unspecified calf with unspecified severity (16) chronic left lower ext wound Status: Chronic Current Visit: No History of Present Illness Date of Service: 01/18/18 Chief Complaint: Chronic venous insufficiency, chronic venous hypertension with inflammation and ulceration, varicose veins with inflammation and ulceration, post phlebitic syndrome with inflammation and ulceration,leg swelling, leg edema, lymphedema, venous stasis ulceration-left lower extremity History of Wound: This is a 77-year-old white female with a long-standing history of chronic venous disease and swelling in her left lower extremity. This has been present for many years. She has a large ulceration located between her left knee and ankle, which is quite large and irregular in shape, and also highly exudative. 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 She has also previously undergone successful endovenous laser ablation of the left great and small saphenous veins. Healing of the patient's left lower extremity ulceration has been slow, but progressive. A number of healing measures have been implemented in the past, without success. The patient is pleased with her current progress. We are currently using Silvadene topically and Xtrasorb for absorption of exudate. The patient's left calf ulceration continues to improve. It is smaller in size. The left lower extremity appears significantly improved, with increasing areas of epithelialization, and diminishing dimensions of her left lower extremity ulceration. 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 (Chronic) chronic left lower ext wound (Chronic) Surgical History: appendectomy, hysterectomy Allergies/Adverse Reactions: Allergies Latex, Natural Rubber Allergy (Verified 07/12/13 11:34) Rash Sulfa (Sulfonamide Antibiotics) Allergy (Verified 07/12/13 11:34) Hives trimethoprim Allergy (Verified 07/12/13 11:34) Hives Home Medications: Ambulatory Orders Medication Instructions Recorded Aspirin [Aspirin, Baby] 81 mg PO DAILY@0800 07/12/13 Calcium Carb/Vitamin D [Os-Mo 1 tablet PO DAILY@0800 07/12/13 500MG + D] Clopidogrel Bisulfate [Plavix] 75 mg PO DAILY 07/12/13 Doxepin HCl [Sinequan] 100 mg PO BID 07/12/13 Doxycycline Monohydrate [Monodox] 100 mg PO BID 07/12/13 [place]-3 Fatty Acids/Fish Oil [Fish 1 each PO DAILY 07/12/13 Oil 1,000 mg Softgel] Vitamin B12 500 mg PO DAILY 07/12/13 Vitamin C 500 mg PO DAILY 07/12/13 proMETHazine soln (6.25mg/5mL) 5 ml PO Q4H PRN PRN 07/12/13 [Phenergan Plain] Prednisone [PredniSONE] 200 mg PO DAILY 07/03/14 Valacyclovir HCl [Valacyclovir] 500 mg PO DAILY 07/03/14 Smoking Status: Never smoker Tobacco Use: Non-smoker Review of Systems Constitutional: Denies: Chills, Fever, Weight Change Eyes: Denies: Pain, Vision Change HEENT: Denies: Difficulty Hearing, Difficulty Swallowing, Sinus Congestion Cardiovascular: Denies: Chest Pain, Palpitations Respiratory: Denies: Cough, Shortness of Breath Gastrointestinal: Denies: Diarrhea, Nausea, Vomiting Genitourinary: Denies: Dysuria, Hematuria Endocrine: Denies: Heat/ Cold Intolerance, Polydipsia, Polyuria Hematologic/ Lymphatic: Denies: Easy Bruising, Easy Bleeding - Physical Exam Vital Signs Temp Pulse Resp BP 98.1 F 66 16 137/75 H 01/18/18 13:01 01/18/18 13:01 01/18/18 13:01 01/18/18 13:01 General: Alert, Oriented x3, Cooperative, No apparent distress, Well developed, Well nourished HEENT: Atraumatic, PERRLA, EOMI, Normocephalic Oral: Moist Mucosa Neck: No JVD Lungs: Normal air movement Abdomen: Non-Distended Extremities: No clubbing, No cyanosis, No Calf Tenderness, - - Chronic swelling and edema persist in the left lower extremity and foot. The ulceration of the left calf persists, slightly smaller in size. Dimensions are documented elsewhere. There is no sign of infection or cellulitis. The base of the ulceration is pink and healthy, with a moderate amount of bioburden. The ulceration is quite irregular in shape. Wound Measurements and Assessment WC - Nurse 1 - General Ulcer Measurement Start: 01/18/18 13:01 Freq: Status: Active Protocol: Activity Type Activity Date Activity User E-Sign Co-Sign Detail Recorded Client Recorded Date Recorded By Document 01/18/18 13:01 DV [id number] 01/18/18 13:06 DV 01/18/18 13:01 Wound Center Nurse 1 [Ulcer Assessment] #3 Medial LLE -Combined with other wound No -Current Size (cm) - Length 10.0 -Current Size (cm) - Width 5.5 -Current Size (cm) - Depth 0.3 -Total Square Cm 55.00 -Photo Taken No -Epithelialization Small 1-33% -Tunneling No -Undermining/Tunneling No -Circular Undermining No -Classification - Thickness Full Thickness without Exposed Support Structure -Exudate Amt Medium (34-66%) -Exudate Type Serosanguineous -Wound Margin Distinct, Outline Attached -Granulation Amt Small (1-33%) -Granulation Quality Pale Crown -Slough/Fibrin Yes -Necrosis Amt Large (67-100%) -Necrotic Tissue Type Adherent Slough -Structure Exposed None/Limited to Skin Breakdown -Texture (Nahomy-wound Skin Appearance) Assessed Localized Edema Scarring -Moisture (Nahomy-wound Skin Appearance Assessed ) Weeping -Color (Nahomy-wound Skin Appearance) Assessed Mottled -Temperature (Nahomy-wound Skin No Abnormality Appearance) (Pt Warm) -Ulcer Cleansing Wound Cleanser -Foul Odor after Cleansing No -Anesthetic Used 4% Lidocaine Solution #4 Lateral LLE -Combined with other wound No -Current Size (cm) - Length 10.4 -Current Size (cm) - Width 10.0 -Current Size (cm) - Depth 0.2 -Total Square Cm 104.00 -Epithelialization Small 1-33% -Tunneling No -Undermining/Tunneling No -Circular Undermining No -Classification - Thickness Full Thickness without Exposed Support Structure -Exudate Amt Large (67-100%) -Exudate Type Serosanguineous -Wound Margin Distinct, Outline Attached -Granulation Amt Small (1-33%) -Granulation Quality Pale Crown -Slough/Fibrin Yes -Necrosis Amt Large (67-100%) -Necrotic Tissue Type Adherent Slough -Structure Exposed None/Limited to Skin Breakdown -Texture (Nahomy-wound Skin Appearance) Assessed Localized Edema -Moisture (Nahomy-wound Skin Appearance Assessed ) Weeping -Color (Nahomy-wound Skin Appearance) Assessed Erythema -Temperature (Nahomy-wound Skin No Abnormality Appearance) (Pt Warm) -Tenderness on Palpation (Nahomy-wound No Skin Appearance) -Ulcer Cleansing Wound Cleanser -Foul Odor after Cleansing No -Anesthetic Used 4% Lidocaine Solution [Edema Assessment] -Left Calf (cm) 40.0 -Left Ankle (cm) 24.0 WC - Nurse 2 - General Ulcer CM Notes Start: 01/18/18 13:01 Freq: Status: Active Protocol: Activity Type Activity Date Activity User E-Sign Co-Sign Detail Recorded Client Recorded Date Recorded By Document 01/18/18 13:12 CARLOS [id number] 01/18/18 13:26 CARLOS 01/18/18 13:12 Wound Center Nurse 2 [Procedure/Treatment] #3 Medial LLE -Time 13:12 -Correct Patient Yes -Correct Side, Site, Position Yes -Correct Procedure Yes -Procedure Performed Yes -Type of Procedure Debridement -Clinical Debridement Subcutaneous -Post Debridement Size (cm) - Length 10.5 -Post Debridement Size (cm) - Width 5.6 -Post Debridement Size (cm) - Depth 0.1 -Total Square Cm 58.80 -Wound/Ulcer Outcome Not Healed -Ulcer Cleansing Rinsed/ Irrigated with Saline -Foul Odor after Cleansing No -Bioengineered Tissue No -Topical Lidocaine (%) 4 -Lidocaine (ml) 10 -Bleeding Controlled with NA -Treatment Response Procedure Tolerated Well #4 Lateral LLE -Time 13:13 -Correct Patient Yes -Correct Side, Site, Position Yes -Correct Procedure Yes -Procedure Performed Yes -Type of Procedure Debridement -Clinical Debridement Subcutaneous -Post Debridement Size (cm) - Length 10.5 -Post Debridement Size (cm) - Width 10.5 -Post Debridement Size (cm) - Depth 0.1 -Total Square Cm 110.25 -Wound/Ulcer Outcome Converted -Ulcer Cleansing Rinsed/ Irrigated with Saline -Foul Odor after Cleansing No -Bioengineered Tissue No -Topical Lidocaine (%) 4 -Lidocaine (ml) 5 -Treatment Response Procedure Tolerated Well [See Physician Procedure note for Specifics] Pain Scale: 0-10 Numeric [Pain] -Is Patient Pain Free? Yes Musculoskeletal: No Muscle Wasting Neurological: Cranial nerves II-XII grossly intact, Neuro grossly intact Psych/Mental Status: Normal Affect, Appropriate, Alert and oriented to time, place, person, mood and affect Debridement Note Post-Debridement Measurements/Treatment WC - Nurse 2 - General Ulcer CM Notes Start: 01/18/18 13:01 Freq: Status: Active Protocol: Activity Type Activity Date Activity User E-Sign Co-Sign Detail Recorded Client Recorded Date Recorded By Document 01/18/18 13:12 [id number] 01/18/18 13:26 CARLOS 01/18/18 13:12 Wound Center Nurse 2 #3 Medial LLE -Time 13:12 -Correct Patient Yes -Correct Side, Site, Position Yes -Correct Procedure Yes -Procedure Performed Yes -Type of Procedure Debridement -Clinical Debridement Subcutaneous -Post Debridement Size (cm) - Length 10.5 -Post Debridement Size (cm) - Width 5.6 -Post Debridement Size (cm) - Depth 0.1 -Total Square Cm 58.80 -Wound/Ulcer Outcome Not Healed -Ulcer Cleansing Rinsed/ Irrigated with Saline -Foul Odor after Cleansing No -Bioengineered Tissue No -Topical Lidocaine (%) 4 -Lidocaine (ml) 10 -Bleeding Controlled with NA -Treatment Response Procedure Tolerated Well #4 Lateral LLE -Time 13:13 -Correct Patient Yes -Correct Side, Site, Position Yes -Correct Procedure Yes -Procedure Performed Yes -Type of Procedure Debridement -Clinical Debridement Subcutaneous -Post Debridement Size (cm) - Length 10.5 -Post Debridement Size (cm) - Width 10.5 -Post Debridement Size (cm) - Depth 0.1 -Total Square Cm 110.25 -Wound/Ulcer Outcome Converted -Ulcer Cleansing Rinsed/ Irrigated with Saline -Foul Odor after Cleansing No -Bioengineered Tissue No -Topical Lidocaine (%) 4 -Lidocaine (ml) 5 -Treatment Response Procedure Tolerated Well Pain Scale: 0-10 Numeric Is Patient Pain Free? Yes Laterality: Left - Calf Type of Debridement: Excisional debridement Anesthesia Used: 4% Lidocaine Solution Depth: Down to and including healthy tissue, in the subcutaneous layer Percentage of wound debrided: 100 Instrument Used: 5mm curette Severity: Fat Layer Exposed Amount of bleeding with debridement: Mild Bleeding Controlled with: Compression and gauze Patient tolerated procedure well Assessment/Plan Active Problems Chronic venous hypertension with inflammation involving left side (Chronic) Left leg swelling (Chronic) Varicose veins with ulcer and inflammation (Chronic) Leg edema, left (Chronic) Chronic venous insufficiency (Chronic) Lymphedema of left leg (Chronic) 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 She has a large irregular ulceration on the left lower extremity which is related to her venous disease. The patient has demonstrated slow but progressive improvement. The base of the ulceration appears generally pink and healthy, with a moderate amount of biofilm and bioburden. We are to continue leg elevation, avoidance of idle standing and sitting, compression by means of SurePress, active lifestyle, weight control measures,etc. She is to continue to take a well-balanced, nutritious diet. We are to continue with the use of Silvadene topically. This will be applied topically on a daily basis. Plan: As above. The patient will return in 2 weeks for reevaluation. We are to continue Silvadene topically. Her continuing improvement suggests that present measures are appropriate and providing the desired results. Current measures include leg elevation, avoidance of idle standing and sitting, activity as tolerated, weight control, and compression by means of SurePress, applied by the patient on a daily basis. She is to continue with the use of XtraSorb for moisture control. The ulceration continues to be exudative, and the patient has been encouraged to enhance the amount of time spent elevating her lower extremity, to help minimize the drainage. Patient is also to continue the use of Vasculera orally on a daily basis, which appears to have made significant improvement. Patient will return in 2 weeks for reassessment. Patient weight is 160 pounds. Patient is 5 feet 9 inches tall. BMI is 23.6. We have discussed weight loss issues, the patient does not require counseling, as her BMI is reasonable. The patient is not a smoker. Influenza vaccine was not administered.
--- NOTE | 2018-01-18 13:32 | HP.PCM_ITS ---
(1) Chronic venous hypertension with inflammation involving left side Status: Chronic Current Visit: Yes Code(s): I87.322 - Chronic venous hypertension (idiopathic) with inflammation of left lower extremity (2) Left leg swelling Status: Chronic Current Visit: Yes Code(s): M79.89 - Other specified soft tissue disorders (3) Varicose veins with ulcer and inflammation Status: Chronic Current Visit: Yes Code(s): I83.209 - Varicose veins of unspecified lower extremity with both ulcer of unspecified site and inflammation ; L97.909 - Non-pressure chronic ulcer of unspecified part of unspecified lower leg with unspecified severity (4) Leg edema, left Status: Chronic Current Visit: Yes Code(s): R60.0 - Localized edema (5) May-Thurner syndrome Status: Resolved Current Visit: No Code(s): I87.1 - Compression of vein (6) History of DVT (deep vein thrombosis) Status: Chronic Current Visit: No Code(s): Z86.718 - Personal history of other venous thrombosis and embolism Comment: left lower ext (7) dermatomycosis leg Status: Inactive Current Visit: No (8) Cellulitis, leg Status: Resolved Current Visit: No Qualifiers: Code(s): L03.119 - Cellulitis of unspecified part of limb (9) Erythema of skin Status: Resolved Current Visit: No Code(s): L53.9 - Erythematous condition, unspecified (10) Cellulitis of leg Status: Resolved Current Visit: No Qualifiers: Code(s): L03.119 - Cellulitis of unspecified part of limb (11) Cellulitis Status: Resolved Current Visit: No Code(s): L03.90 - Cellulitis, unspecified (12) Chronic venous insufficiency Status: Chronic Current Visit: Yes (13) Lymphedema of left leg Status: Chronic Current Visit: Yes Code(s): I89.0 - Lymphedema, not elsewhere classified (14) 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 Status: Chronic Current Visit: Yes Code(s): I87.039 - Postthrombotic syndrome with ulcer and inflammation of unspecified lower extremity (15) Calf ulcer Status: Chronic Current Visit: Yes Qualifiers: Laterality: left Non-pressure ulcer stage: with fat layer exposed Qualified Code(s): L97.222 - Non-pressure chronic ulcer of left calf with fat layer exposed Code(s): L97.209 - Non-pressure chronic ulcer of unspecified calf with unspecified severity (16) chronic left lower ext wound Status: Chronic Current Visit: No History of Present Illness Date of Service: 01/18/18 Chief Complaint: Chronic venous insufficiency, chronic venous hypertension with inflammation and ulceration, varicose veins with inflammation and ulceration, post phlebitic syndrome with inflammation and ulceration,leg swelling, leg edema , lymphedema, venous stasis ulceration-left lower extremity History of Wound: This is a 77-year-old white female with a long-standing history of chronic venous disease and swelling in her left lower extremity. This has been present for many years. She has a large ulceration located between her left knee and ankle, which is quite large and irregular in shape, and also highly exudative. 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 She has also previously undergone successful endovenous laser ablation of the left great and small saphenous veins. Healing of the patient's left lower extremity ulceration has been slow, but progressive. A number of healing measures have been implemented in the past , without success. The patient is pleased with her current progress. We are currently using Silvadene topically and Xtrasorb for absorption of exudate. The patient's left calf ulceration continues to improve. It is smaller in size. The left lower extremity appears significantly improved, with increasing areas of epithelialization, and diminishing dimensions of her left lower extremity ulceration. 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 (Chronic) chronic left lower ext wound (Chronic) Surgical History: appendectomy, hysterectomy Allergies/Adverse Reactions: Allergies Latex, Natural Rubber Allergy (Verified 07/12/13 11:34) Rash Sulfa (Sulfonamide Antibiotics) Allergy (Verified 07/12/13 11:34) Hives trimethoprim Allergy (Verified 07/12/13 11:34) Hives Home Medications: Ambulatory Orders Medication Instructions Recorded Aspirin [Aspirin, Baby] 81 mg PO DAILY@0800 07/12/13 Calcium Carb/Vitamin D [Os-Mo 1 tablet PO DAILY@0800 07/12/13 500MG + D] Clopidogrel Bisulfate [Plavix] 75 mg PO DAILY 07/12/13 Doxepin HCl [Sinequan] 100 mg PO BID 07/12/13 Doxycycline Monohydrate [Monodox] 100 mg PO BID 07/12/13 [place]-3 Fatty Acids/Fish Oil [Fish 1 each PO DAILY 07/12/13 Oil 1,000 mg Softgel] Vitamin B12 500 mg PO DAILY 07/12/13 Vitamin C 500 mg PO DAILY 07/12/13 proMETHazine soln (6.25mg/5mL) 5 ml PO Q4H PRN PRN 07/12/13 [Phenergan Plain] Prednisone [PredniSONE] 200 mg PO DAILY 07/03/14 Valacyclovir HCl [Valacyclovir] 500 mg PO DAILY 07/03/14 Smoking Status: Never smoker Tobacco Use: Non-smoker Review of Systems Constitutional: Denies: Chills, Fever, Weight Change Eyes: Denies: Pain, Vision Change HEENT: Denies: Difficulty Hearing, Difficulty Swallowing, Sinus Congestion Cardiovascular: Denies: Chest Pain, Palpitations Respiratory: Denies: Cough, Shortness of Breath Gastrointestinal: Denies: Diarrhea, Nausea, Vomiting Genitourinary: Denies: Dysuria, Hematuria Endocrine: Denies: Heat/ Cold Intolerance, Polydipsia, Polyuria Hematologic/ Lymphatic: Denies: Easy Bruising, Easy Bleeding - Physical Exam Vital Signs Temp Pulse Resp BP 98.1 F 66 16 137/75 H 01/18/18 13:01 01/18/18 13:01 01/18/18 13:01 01/18/18 13:01 General: Alert, Oriented x3, Cooperative, No apparent distress, Well developed, Well nourished HEENT: Atraumatic, PERRLA, EOMI, Normocephalic Oral: Moist Mucosa Neck: No JVD Lungs: Normal air movement Abdomen: Non-Distended Extremities: No clubbing, No cyanosis, No Calf Tenderness, - - Chronic swelling and edema persist in the left lower extremity and foot. The ulceration of the left calf persists, slightly smaller in size. Dimensions are documented elsewhere. There is no sign of infection or cellulitis. The base of the ulceration is pink and healthy, with a moderate amount of bioburden. The ulceration is quite irregular in shape. Wound Measurements and Assessment WC - Nurse 1 - General Ulcer Measurement Start: 01/18/18 13:01 Freq: Status: Active Protocol: Activity Type Activity Date Activity User E-Sign Co-Sign Detail Recorded Client Recorded Date Recorded By Document 01/18/18 13:01 DV [id number] 01/18/18 13:06 DV 01/18/18 13:01 Wound Center Nurse 1 [Ulcer Assessment] #3 Medial LLE -Combined with other wound No -Current Size (cm) - Length 10.0 -Current Size (cm) - Width 5.5 -Current Size (cm) - Depth 0.3 -Total Square Cm 55.00 -Photo Taken No -Epithelialization Small 1-33% -Tunneling No -Undermining/Tunneling No -Circular Undermining No -Classification - Thickness Full Thickness without Exposed Support Structure -Exudate Amt Medium (34-66%) -Exudate Type Serosanguineous -Wound Margin Distinct, Outline Attached -Granulation Amt Small (1-33%) -Granulation Quality Pale [place] -Slough/Fibrin Yes -Necrosis Amt Large (67-100%) -Necrotic Tissue Type Adherent Slough -Structure Exposed None/Limited to Skin Breakdown -Texture (Nahomy-wound Skin Appearance) Assessed Localized Edema Scarring -Moisture (Nahomy-wound Skin Appearance Assessed ) Weeping -Color (Nahomy-wound Skin Appearance) Assessed Mottled -Temperature (Nahomy-wound Skin No Abnormality Appearance) (Pt Warm) -Ulcer Cleansing Wound Cleanser -Foul Odor after Cleansing No -Anesthetic Used 4% Lidocaine Solution #4 Lateral LLE -Combined with other wound No -Current Size (cm) - Length 10.4 -Current Size (cm) - Width 10.0 -Current Size (cm) - Depth 0.2 -Total Square Cm 104.00 -Epithelialization Small 1-33% -Tunneling No -Undermining/Tunneling No -Circular Undermining No -Classification - Thickness Full Thickness without Exposed Support Structure -Exudate Amt Large (67-100%) -Exudate Type Serosanguineous -Wound Margin Distinct, Outline Attached -Granulation Amt Small (1-33%) -Granulation Quality Pale [place] -Slough/Fibrin Yes -Necrosis Amt Large (67-100%) -Necrotic Tissue Type Adherent Slough -Structure Exposed None/Limited to Skin Breakdown -Texture (Nahomy-wound Skin Appearance) Assessed Localized Edema -Moisture (Nahomy-wound Skin Appearance Assessed ) Weeping -Color (Nahomy-wound Skin Appearance) Assessed Erythema -Temperature (Nahomy-wound Skin No Abnormality Appearance) (Pt Warm) -Tenderness on Palpation (Nahomy-wound No Skin Appearance) -Ulcer Cleansing Wound Cleanser -Foul Odor after Cleansing No -Anesthetic Used 4% Lidocaine Solution [Edema Assessment] -Left Calf (cm) 40.0 -Left Ankle (cm) 24.0 WC - Nurse 2 - General Ulcer CM Notes Start: 01/18/18 13:01 Freq: Status: Active Protocol: Activity Type Activity Date Activity User E-Sign Co-Sign Detail Recorded Client Recorded Date Recorded By Document 01/18/18 13:12 CARLOS [id number] 01/18/18 13:26 CARLOS 01/18/18 13:12 Wound Center Nurse 2 [Procedure/Treatment] #3 Medial LLE -Time 13:12 -Correct Patient Yes -Correct Side, Site, Position Yes -Correct Procedure Yes -Procedure Performed Yes -Type of Procedure Debridement -Clinical Debridement Subcutaneous -Post Debridement Size (cm) - Length 10.5 -Post Debridement Size (cm) - Width 5.6 -Post Debridement Size (cm) - Depth 0.1 -Total Square Cm 58.80 -Wound/Ulcer Outcome Not Healed -Ulcer Cleansing Rinsed/ Irrigated with Saline -Foul Odor after Cleansing No -Bioengineered Tissue No -Topical Lidocaine (%) 4 -Lidocaine (ml) 10 -Bleeding Controlled with NA -Treatment Response Procedure Tolerated Well #4 Lateral LLE -Time 13:13 -Correct Patient Yes -Correct Side, Site, Position Yes -Correct Procedure Yes -Procedure Performed Yes -Type of Procedure Debridement -Clinical Debridement Subcutaneous -Post Debridement Size (cm) - Length 10.5 -Post Debridement Size (cm) - Width 10.5 -Post Debridement Size (cm) - Depth 0.1 -Total Square Cm 110.25 -Wound/Ulcer Outcome Converted -Ulcer Cleansing Rinsed/ Irrigated with Saline -Foul Odor after Cleansing No -Bioengineered Tissue No -Topical Lidocaine (%) 4 -Lidocaine (ml) 5 -Treatment Response Procedure Tolerated Well [See Physician Procedure note for Specifics] Pain Scale: 0-10 Numeric [Pain] -Is Patient Pain Free? Yes Musculoskeletal: No Muscle Wasting Neurological: Cranial nerves II-XII grossly intact, Neuro grossly intact Psych/Mental Status: Normal Affect, Appropriate, Alert and oriented to time, place, person, mood and affect Debridement Note Post-Debridement Measurements/Treatment WC - Nurse 2 - General Ulcer CM Notes Start: 01/18/18 13:01 Freq: Status: Active Protocol: Activity Type Activity Date Activity User E-Sign Co-Sign Detail Recorded Client Recorded Date Recorded By Document 01/18/18 13:12 [id number] 01/18/18 13:26 CARLOS 01/18/18 13:12 Wound Center Nurse 2 #3 Medial LLE -Time 13:12 -Correct Patient Yes -Correct Side, Site, Position Yes -Correct Procedure Yes -Procedure Performed Yes -Type of Procedure Debridement -Clinical Debridement Subcutaneous -Post Debridement Size (cm) - Length 10.5 -Post Debridement Size (cm) - Width 5.6 -Post Debridement Size (cm) - Depth 0.1 -Total Square Cm 58.80 -Wound/Ulcer Outcome Not Healed -Ulcer Cleansing Rinsed/ Irrigated with Saline -Foul Odor after Cleansing No -Bioengineered Tissue No -Topical Lidocaine (%) 4 -Lidocaine (ml) 10 -Bleeding Controlled with NA -Treatment Response Procedure Tolerated Well #4 Lateral LLE -Time 13:13 -Correct Patient Yes -Correct Side, Site, Position Yes -Correct Procedure Yes -Procedure Performed Yes -Type of Procedure Debridement -Clinical Debridement Subcutaneous -Post Debridement Size (cm) - Length 10.5 -Post Debridement Size (cm) - Width 10.5 -Post Debridement Size (cm) - Depth 0.1 -Total Square Cm 110.25 -Wound/Ulcer Outcome Converted -Ulcer Cleansing Rinsed/ Irrigated with Saline -Foul Odor after Cleansing No -Bioengineered Tissue No -Topical Lidocaine (%) 4 -Lidocaine (ml) 5 -Treatment Response Procedure Tolerated Well Pain Scale: 0-10 Numeric Is Patient Pain Free? Yes Laterality: Left - Calf Type of Debridement: Excisional debridement Anesthesia Used: 4% Lidocaine Solution Depth: Down to and including healthy tissue, in the subcutaneous layer Percentage of wound debrided: 100 Instrument Used: 5mm curette Severity: Fat Layer Exposed Amount of bleeding with debridement: Mild Bleeding Controlled with: Compression and gauze Patient tolerated procedure well Assessment/Plan Active Problems Chronic venous hypertension with inflammation involving left side (Chronic) Left leg swelling (Chronic) Varicose veins with ulcer and inflammation (Chronic) Leg edema, left (Chronic) Chronic venous insufficiency (Chronic) Lymphedema of left leg (Chronic) 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 She has a large irregular ulceration on the left lower extremity which is related to her venous disease. The patient has demonstrated slow but progressive improvement. The base of the ulceration appears generally pink and healthy, with a moderate amount of biofilm and bioburden. We are to continue leg elevation, avoidance of idle standing and sitting, compression by means of SurePress, active lifestyle, weight control measures,etc. She is to continue to take a well-balanced, nutritious diet. We are to continue with the use of Silvadene topically. This will be applied topically on a daily basis. Plan: As above. The patient will return in 2 weeks for reevaluation. We are to continue Silvadene topically. Her continuing improvement suggests that present measures are appropriate and providing the desired results. Current measures include leg elevation, avoidance of idle standing and sitting, activity as tolerated, weight control, and compression by means of SurePress, applied by the patient on a daily basis. She is to continue with the use of XtraSorb for moisture control. The ulceration continues to be exudative, and the patient has been encouraged to enhance the amount of time spent elevating her lower extremity, to help minimize the drainage. Patient is also to continue the use of Vasculera orally on a daily basis, which appears to have made significant improvement. Patient will return in 2 weeks for reassessment. Patient weight is 160 pounds. Patient is 5 feet 9 inches tall. BMI is 23.6. We have discussed weight loss issues, the patient does not require counseling , as her BMI is reasonable. The patient is not a smoker. Influenza vaccine was not administered.
[2018-02-01 12:46] VITALS: BP 143/73; PULSE 73; RESP 16; TEMP 36
--- NOTE | 2018-02-01 13:30 | PCM.WC.HP ---
(1) Chronic venous hypertension with inflammation involving left side Status: Chronic Current Visit: Yes Code(s): I87.322 - Chronic venous hypertension (idiopathic) with inflammation of left lower extremity (2) Left leg swelling Status: Chronic Current Visit: Yes Code(s): M79.89 - Other specified soft tissue disorders (3) Varicose veins with ulcer and inflammation Status: Chronic Current Visit: Yes Code(s): I83.209 - Varicose veins of unspecified lower extremity with both ulcer of unspecified site and inflammation; L97.909 - Non-pressure chronic ulcer of unspecified part of unspecified lower leg with unspecified severity (4) Leg edema, left Status: Chronic Current Visit: Yes Code(s): R60.0 - Localized edema (5) History of DVT (deep vein thrombosis) Status: Chronic Current Visit: No Code(s): Z86.718 - Personal history of other venous thrombosis and embolism Comment: left lower ext (6) Chronic venous insufficiency Status: Chronic Current Visit: Yes (7) Lymphedema of left leg Status: Chronic Current Visit: Yes Code(s): I89.0 - Lymphedema, not elsewhere classified (8) 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 Status: Chronic Current Visit: Yes Code(s): I87.039 - Postthrombotic syndrome with ulcer and inflammation of unspecified lower extremity (9) Calf ulcer Status: Chronic Current Visit: Yes Qualifiers: Laterality: left Non-pressure ulcer stage: with fat layer exposed Qualified Code(s): L97.222 - Non-pressure chronic ulcer of left calf with fat layer exposed Code(s): L97.209 - Non-pressure chronic ulcer of unspecified calf with unspecified severity (10) chronic left lower ext wound Status: Chronic Current Visit: No History of Present Illness Date of Service: 02/01/18 Chief Complaint: Chronic venous insufficiency, chronic venous hypertension with inflammation and ulceration, varicose veins with inflammation and ulceration, post phlebitic syndrome with inflammation and ulceration,leg swelling, leg edema, lymphedema, venous stasis ulceration-left lower extremity History of Wound: This is a 77-year-old white female with a long-standing history of chronic venous disease and swelling in her left lower extremity. This has been present for many years. She has a large ulceration located between her left knee and ankle, which is quite large and irregular in shape, and also highly exudative. 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 She has also previously undergone successful endovenous laser ablation of the left great and small saphenous veins. Healing of the patient's left lower extremity ulceration has been slow, but progressive. A number of healing measures have been implemented in the past, without success. The patient is pleased with her current progress. We are currently using Silvadene topically and Xtrasorb for absorption of exudate. The patient's left calf ulceration continues to improve. It is smaller in size, with increasing areas of epithelialization, and diminishing dimensions of her left lower extremity ulceration. 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 (Chronic) chronic left lower ext wound (Chronic) Surgical History: appendectomy, hysterectomy Allergies/Adverse Reactions: Allergies Latex, Natural Rubber Allergy (Verified 07/12/13 11:34) Rash Sulfa (Sulfonamide Antibiotics) Allergy (Verified 07/12/13 11:34) Hives trimethoprim Allergy (Verified 07/12/13 11:34) Hives Home Medications: Ambulatory Orders Medication Instructions Recorded Aspirin [Aspirin, Baby] 81 mg PO DAILY@0800 07/12/13 Calcium Carb/Vitamin D [Os-Mo 1 tablet PO DAILY@0800 07/12/13 500MG + D] Clopidogrel Bisulfate [Plavix] 75 mg PO DAILY 07/12/13 Doxepin HCl [Sinequan] 100 mg PO BID 07/12/13 Doxycycline Monohydrate [Monodox] 100 mg PO BID 07/12/13 [place]-3 Fatty Acids/Fish Oil [Fish 1 each PO DAILY 07/12/13 Oil 1,000 mg Softgel] Vitamin B12 500 mg PO DAILY 07/12/13 Vitamin C 500 mg PO DAILY 07/12/13 proMETHazine soln (6.25mg/5mL) 5 ml PO Q4H PRN PRN 10/01/13 [Phenergan Plain] Prednisone [PredniSONE] 200 mg PO DAILY 07/03/14 Valacyclovir HCl [Valacyclovir] 500 mg PO DAILY 07/03/14 Smoking Status: Never smoker Tobacco Use: Non-smoker Review of Systems Constitutional: Denies: Chills, Fever, Weight Change Eyes: Denies: Pain, Vision Change HEENT: Denies: Difficulty Hearing, Difficulty Swallowing, Sinus Congestion Cardiovascular: Denies: Chest Pain, Palpitations Respiratory: Denies: Cough, Shortness of Breath Gastrointestinal: Denies: Diarrhea, Nausea, Vomiting Genitourinary: Denies: Dysuria, Hematuria Endocrine: Denies: Heat/ Cold Intolerance, Polydipsia, Polyuria Hematologic/ Lymphatic: Denies: Easy Bruising, Easy Bleeding - Physical Exam Vital Signs Temp Pulse Resp BP 96.8 F L 73 16 143/73 H 02/01/18 12:46 02/01/18 12:46 02/01/18 12:46 02/01/18 12:46 General: Alert, Oriented x3, Cooperative, No apparent distress, Well developed, Well nourished HEENT: Atraumatic, PERRLA, EOMI, Normocephalic Oral: Moist Mucosa Neck: No JVD Lungs: Normal air movement Abdomen: Non-Distended Extremities: No clubbing, No cyanosis, No Calf Tenderness, - - The left calf ulceration is slightly smaller in size. It remains highly irregular in shape. There is a moderate amount of bioburden. Dimensions are documented elsewhere. There is no sign of infection or cellulitis. There are increasing areas of epithelialization. There is severe swelling in the distal left lower extremity, most demonstrable on the dorsum of the left foot. Skin: No rashes Wound Measurements and Assessment WC - Nurse 1 - General Ulcer Measurement Start: 01/18/18 13:01 Freq: Status: Active Protocol: Activity Type Activity Date Activity User E-Sign Co-Sign Detail Recorded Client Recorded Date Recorded By Document 02/01/18 12:46 [facility] [id number] 02/01/18 12:58 [facility] 02/01/18 12:46 Wound Center Nurse 1 [Ulcer Assessment] #3 Medial LLE -Combined with other wound No -Current Size (cm) - Length 10.3 -Current Size (cm) - Width 8.4 -Current Size (cm) - Depth 0.1 -Total Square Cm 86.52 -Date of Last Picture (Recall this 02/01/18 field) -Photo Taken Yes -Epithelialization None Present -Tunneling No -Undermining/Tunneling No -Circular Undermining No -Exudate Amt Medium (34-66%) -Exudate Type Serosanguineous -Wound Margin Distinct, Outline Attached -Granulation Amt None Present (0 %) -Slough/Fibrin Yes -Necrosis Amt Large (67-100%) -Necrotic Tissue Type Adherent Slough -Structure Exposed N/A -Texture (Nahomy-wound Skin Appearance) Scarring -Moisture (Nahomy-wound Skin Appearance Dry/Scaly ) -Color (Nahomy-wound Skin Appearance) Assessed -Temperature (Nahomy-wound Skin No Abnormality Appearance) (Pt Warm) -Tenderness on Palpation (Nahomy-wound No Skin Appearance) -Ulcer Cleansing Wound Cleanser -Foul Odor after Cleansing No -Anesthetic Used 4% Lidocaine Solution #4 Lateral LLE -Combined with other wound No -Current Size (cm) - Length 13.1 -Current Size (cm) - Width 10.8 -Current Size (cm) - Depth 0.1 -Total Square Cm 141.48 -Date of Last Picture (Recall this 02/01/18 field) -Photo Taken Yes -Epithelialization None Present -Tunneling No -Undermining/Tunneling No -Circular Undermining No -Exudate Amt Medium (34-66%) -Exudate Type Serosanguineous -Wound Margin Distinct, Outline Attached -Granulation Amt None Present (0 %) -Slough/Fibrin Yes -Necrosis Amt Large (67-100%) -Necrotic Tissue Type Adherent Slough -Structure Exposed N/A -Texture (Nahomy-wound Skin Appearance) Scarring -Moisture (Nahomy-wound Skin Appearance Dry/Scaly ) -Color (Nahomy-wound Skin Appearance) Assessed -Temperature (Nahomy-wound Skin No Abnormality Appearance) (Pt Warm) -Tenderness on Palpation (Nahomy-wound No Skin Appearance) -Ulcer Cleansing Wound Cleanser -Foul Odor after Cleansing No -Anesthetic Used 4% Lidocaine Solution [Edema Assessment] -Lower Limb Edema Present Yes -Left Calf (cm) 36.5 -Left Ankle (cm) 25.3 WC - Nurse 2 - General Ulcer CM Notes Start: 01/18/18 13:01 Freq: Status: Active Protocol: Activity Type Activity Date Activity User E-Sign Co-Sign Detail Recorded Client Recorded Date Recorded By Document 02/01/18 13:18 [id number] 02/01/18 13:30 02/01/18 13:18 Wound Center Nurse 2 [Procedure/Treatment] #3 Medial LLE -Time 13:19 -Correct Patient Yes -Correct Side, Site, Position Yes -Correct Procedure Yes -Procedure Performed Yes -Type of Procedure Debridement -Clinical Debridement Subcutaneous -Post Debridement Size (cm) - Length 10.5 -Post Debridement Size (cm) - Width 5.5 -Post Debridement Size (cm) - Depth 0.2 -Total Square Cm 57.75 -Wound/Ulcer Outcome Not Healed -Ulcer Cleansing Rinsed/ Irrigated with Saline -Foul Odor after Cleansing No -Bioengineered Tissue No -Topical Lidocaine (%) 4 -Lidocaine (ml) 10 -Bleeding Controlled with NA -Treatment Response Procedure Tolerated Well #4 Lateral LLE -Time 13:19 -Correct Patient Yes -Correct Side, Site, Position Yes -Correct Procedure Yes -Procedure Performed Yes -Type of Procedure Debridement -Clinical Debridement Subcutaneous -Post Debridement Size (cm) - Length 10.5 -Post Debridement Size (cm) - Width 10.3 -Post Debridement Size (cm) - Depth 0.2 -Total Square Cm 108.15 -Wound/Ulcer Outcome Not Healed -Ulcer Cleansing Rinsed/ Irrigated with Saline -Foul Odor after Cleansing No -Bioengineered Tissue No -Topical Lidocaine (%) 4 -Lidocaine (ml) 10 -Bleeding Controlled with Pressure -Treatment Response Procedure Tolerated Well [See Physician Procedure note for Specifics] Pain Scale: 0-10 Numeric [Pain] -Is Patient Pain Free? Yes Musculoskeletal: No Muscle Wasting Neurological: Cranial nerves II-XII grossly intact, Neuro grossly intact Psych/Mental Status: Normal Affect, Appropriate, Alert and oriented to time, place, person, mood and affect Debridement Note Post-Debridement Measurements/Treatment WC - Nurse 2 - General Ulcer CM Notes Start: 01/18/18 13:01 Freq: Status: Active Protocol: Activity Type Activity Date Activity User E-Sign Co-Sign Detail Recorded Client Recorded Date Recorded By Document 01/18/18 13:12 [id number] 01/18/18 13:26 JS Document 02/01/18 13:18 [id number] 02/01/18 13:30 JS 01/18/18 02/01/18 13:12 13:18 Wound Center Nurse 2 #3 Medial LLE -Time 13:12 13:19 -Correct Patient Yes Yes -Correct Side, Site, Position Yes Yes -Correct Procedure Yes Yes -Procedure Performed Yes Yes -Type of Procedure Debridement Debridement -Clinical Debridement Subcutaneous Subcutaneous -Post Debridement Size (cm) - Length 10.5 10.5 -Post Debridement Size (cm) - Width 5.6 5.5 -Post Debridement Size (cm) - Depth 0.1 0.2 -Total Square Cm 58.80 57.75 -Wound/Ulcer Outcome Not Healed Not Healed -Ulcer Cleansing Rinsed/ Rinsed/ Irrigated with Irrigated with Saline Saline -Foul Odor after Cleansing No No -Bioengineered Tissue No No -Topical Lidocaine (%) 4 4 -Lidocaine (ml) 10 10 -Bleeding Controlled with NA NA -Treatment Response Procedure Procedure Tolerated Well Tolerated Well #4 Lateral LLE -Time 13:13 13:19 -Correct Patient Yes Yes -Correct Side, Site, Position Yes Yes -Correct Procedure Yes Yes -Procedure Performed Yes Yes -Type of Procedure Debridement Debridement -Clinical Debridement Subcutaneous Subcutaneous -Post Debridement Size (cm) - Length 10.5 10.5 -Post Debridement Size (cm) - Width 10.5 10.3 -Post Debridement Size (cm) - Depth 0.1 0.2 -Total Square Cm 110.25 108.15 -Wound/Ulcer Outcome Converted Not Healed -Ulcer Cleansing Rinsed/ Rinsed/ Irrigated with Irrigated with Saline Saline -Foul Odor after Cleansing No No -Bioengineered Tissue No No -Topical Lidocaine (%) 4 4 -Lidocaine (ml) 5 10 -Bleeding Controlled with Pressure -Treatment Response Procedure Procedure Tolerated Well Tolerated Well Pain Scale: 0-10 Numeric Is Patient Pain Free? Yes Yes Laterality: Left Type of Debridement: Excisional debridement Anesthesia Used: 4% Lidocaine Solution Depth: Down to and including healthy tissue, in the subcutaneous layer Percentage of wound debrided: 100 Instrument Used: 5mm curette Severity: Fat Layer Exposed Amount of bleeding with debridement: Mild Bleeding Controlled with: Compression and gauze Patient tolerated procedure well Assessment/Plan Active Problems Chronic venous hypertension with inflammation involving left side (Chronic) Left leg swelling (Chronic) Varicose veins with ulcer and inflammation (Chronic) Leg edema, left (Chronic) Chronic venous insufficiency (Chronic) Lymphedema of left leg (Chronic) 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 She has a large irregular ulceration on the left lower extremity which is related to her venous disease. The patient has demonstrated slow but progressive improvement. The base of the ulceration appears generally pink and healthy, with a moderate amount of biofilm and bioburden. We are to continue leg elevation, avoidance of idle standing and sitting, compression by means of SurePress, active lifestyle, weight control measures,etc. She is to continue to take a well-balanced, nutritious diet. We are to continue with the use of Silvadene topically. This will be applied topically on a daily basis. Plan: As above. The patient will return in 2 weeks for reevaluation. We are to continue Silvadene topically. Her continuing improvement suggests that present measures are appropriate and providing the desired results. Current measures include leg elevation, avoidance of idle standing and sitting, activity as tolerated, weight control, and compression by means of SurePress, applied by the patient on a daily basis. She is to continue with the use of XtraSorb for moisture control. The ulceration continues to be exudative, and the patient has been encouraged to enhance the amount of time spent elevating her lower extremity, to help minimize the drainage. Patient is also to continue the use of Vasculera orally on a daily basis, which appears to have made significant improvement. Patient will return in 2 weeks for reassessment. Patient weight is 160 pounds. Patient is 5 feet 9 inches tall. BMI is 23.6. We have discussed weight loss issues, the patient does not require counseling, as her BMI is reasonable. The patient is not a smoker. Influenza vaccine was not administered.
--- NOTE | 2018-02-01 13:34 | HP.PCM_ITS ---
(1) Chronic venous hypertension with inflammation involving left side Status: Chronic Current Visit: Yes Code(s): I87.322 - Chronic venous hypertension (idiopathic) with inflammation of left lower extremity (2) Left leg swelling Status: Chronic Current Visit: Yes Code(s): M79.89 - Other specified soft tissue disorders (3) Varicose veins with ulcer and inflammation Status: Chronic Current Visit: Yes Code(s): I83.209 - Varicose veins of unspecified lower extremity with both ulcer of unspecified site and inflammation ; L97.909 - Non-pressure chronic ulcer of unspecified part of unspecified lower leg with unspecified severity (4) Leg edema, left Status: Chronic Current Visit: Yes Code(s): R60.0 - Localized edema (5) History of DVT (deep vein thrombosis) Status: Chronic Current Visit: No Code(s): Z86.718 - Personal history of other venous thrombosis and embolism Comment: left lower ext (6) Chronic venous insufficiency Status: Chronic Current Visit: Yes (7) Lymphedema of left leg Status: Chronic Current Visit: Yes Code(s): I89.0 - Lymphedema, not elsewhere classified (8) 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 Status: Chronic Current Visit: Yes Code(s): I87.039 - Postthrombotic syndrome with ulcer and inflammation of unspecified lower extremity (9) Calf ulcer Status: Chronic Current Visit: Yes Qualifiers: Laterality: left Non-pressure ulcer stage: with fat layer exposed Qualified Code(s): L97.222 - Non-pressure chronic ulcer of left calf with fat layer exposed Code(s): L97.209 - Non-pressure chronic ulcer of unspecified calf with unspecified severity (10) chronic left lower ext wound Status: Chronic Current Visit: No History of Present Illness Date of Service: 02/01/18 Chief Complaint: Chronic venous insufficiency, chronic venous hypertension with inflammation and ulceration, varicose veins with inflammation and ulceration, post phlebitic syndrome with inflammation and ulceration,leg swelling, leg edema , lymphedema, venous stasis ulceration-left lower extremity History of Wound: This is a 77-year-old white female with a long-standing history of chronic venous disease and swelling in her left lower extremity. This has been present for many years. She has a large ulceration located between her left knee and ankle, which is quite large and irregular in shape, and also highly exudative. 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 She has also previously undergone successful endovenous laser ablation of the left great and small saphenous veins. Healing of the patient's left lower extremity ulceration has been slow, but progressive. A number of healing measures have been implemented in the past , without success. The patient is pleased with her current progress. We are currently using Silvadene topically and Xtrasorb for absorption of exudate. The patient's left calf ulceration continues to improve. It is smaller in size , with increasing areas of epithelialization, and diminishing dimensions of her left lower extremity ulceration. 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 (Chronic) chronic left lower ext wound (Chronic) Surgical History: appendectomy, hysterectomy Allergies/Adverse Reactions: Allergies Latex, Natural Rubber Allergy (Verified 07/12/13 11:34) Rash Sulfa (Sulfonamide Antibiotics) Allergy (Verified 07/12/13 11:34) Hives trimethoprim Allergy (Verified 07/12/13 11:34) Hives Home Medications: Ambulatory Orders Medication Instructions Recorded Aspirin [Aspirin, Baby] 81 mg PO DAILY@0800 07/12/13 Calcium Carb/Vitamin D [Os-Mo 1 tablet PO DAILY@0800 07/12/13 500MG + D] Clopidogrel Bisulfate [Plavix] 75 mg PO DAILY 07/12/13 Doxepin HCl [Sinequan] 100 mg PO BID 07/12/13 Doxycycline Monohydrate [Monodox] 100 mg PO BID 07/12/13 [place]-3 Fatty Acids/Fish Oil [Fish 1 each PO DAILY 07/12/13 Oil 1,000 mg Softgel] Vitamin B12 500 mg PO DAILY 07/12/13 Vitamin C 500 mg PO DAILY 07/12/13 proMETHazine soln (6.25mg/5mL) 5 ml PO Q4H PRN PRN 10/01/13 [Phenergan Plain] Prednisone [PredniSONE] 200 mg PO DAILY 07/03/14 Valacyclovir HCl [Valacyclovir] 500 mg PO DAILY 07/03/14 Smoking Status: Never smoker Tobacco Use: Non-smoker Review of Systems Constitutional: Denies: Chills, Fever, Weight Change Eyes: Denies: Pain, Vision Change HEENT: Denies: Difficulty Hearing, Difficulty Swallowing, Sinus Congestion Cardiovascular: Denies: Chest Pain, Palpitations Respiratory: Denies: Cough, Shortness of Breath Gastrointestinal: Denies: Diarrhea, Nausea, Vomiting Genitourinary: Denies: Dysuria, Hematuria Endocrine: Denies: Heat/ Cold Intolerance, Polydipsia, Polyuria Hematologic/ Lymphatic: Denies: Easy Bruising, Easy Bleeding - Physical Exam Vital Signs Temp Pulse Resp BP 96.8 F L 73 16 143/73 H 02/01/18 12:46 02/01/18 12:46 02/01/18 12:46 02/01/18 12:46 General: Alert, Oriented x3, Cooperative, No apparent distress, Well developed, Well nourished HEENT: Atraumatic, PERRLA, EOMI, Normocephalic Oral: Moist Mucosa Neck: No JVD Lungs: Normal air movement Abdomen: Non-Distended Extremities: No clubbing, No cyanosis, No Calf Tenderness, - - The left calf ulceration is slightly smaller in size. It remains highly irregular in shape. There is a moderate amount of bioburden. Dimensions are documented elsewhere. There is no sign of infection or cellulitis. There are increasing areas of epithelialization. There is severe swelling in the distal left lower extremity , most demonstrable on the dorsum of the left foot. Skin: No rashes Wound Measurements and Assessment WC - Nurse 1 - General Ulcer Measurement Start: 01/18/18 13:01 Freq: Status: Active Protocol: Activity Type Activity Date Activity User E-Sign Co-Sign Detail Recorded Client Recorded Date Recorded By Document 02/01/18 12:46 [facility] [id number] 02/01/18 12:58 [facility] 02/01/18 12:46 Wound Center Nurse 1 [Ulcer Assessment] #3 Medial LLE -Combined with other wound No -Current Size (cm) - Length 10.3 -Current Size (cm) - Width 8.4 -Current Size (cm) - Depth 0.1 -Total Square Cm 86.52 -Date of Last Picture (Recall this 02/01/18 field) -Photo Taken Yes -Epithelialization None Present -Tunneling No -Undermining/Tunneling No -Circular Undermining No -Exudate Amt Medium (34-66%) -Exudate Type Serosanguineous -Wound Margin Distinct, Outline Attached -Granulation Amt None Present (0 %) -Slough/Fibrin Yes -Necrosis Amt Large (67-100%) -Necrotic Tissue Type Adherent Slough -Structure Exposed N/A -Texture (Nahomy-wound Skin Appearance) Scarring -Moisture (Nahomy-wound Skin Appearance Dry/Scaly ) -Color (Nahomy-wound Skin Appearance) Assessed -Temperature (Nahomy-wound Skin No Abnormality Appearance) (Pt Warm) -Tenderness on Palpation (Nahomy-wound No Skin Appearance) -Ulcer Cleansing Wound Cleanser -Foul Odor after Cleansing No -Anesthetic Used 4% Lidocaine Solution #4 Lateral LLE -Combined with other wound No -Current Size (cm) - Length 13.1 -Current Size (cm) - Width 10.8 -Current Size (cm) - Depth 0.1 -Total Square Cm 141.48 -Date of Last Picture (Recall this 02/01/18 field) -Photo Taken Yes -Epithelialization None Present -Tunneling No -Undermining/Tunneling No -Circular Undermining No -Exudate Amt Medium (34-66%) -Exudate Type Serosanguineous -Wound Margin Distinct, Outline Attached -Granulation Amt None Present (0 %) -Slough/Fibrin Yes -Necrosis Amt Large (67-100%) -Necrotic Tissue Type Adherent Slough -Structure Exposed N/A -Texture (Nahomy-wound Skin Appearance) Scarring -Moisture (Nahomy-wound Skin Appearance Dry/Scaly ) -Color (Nahomy-wound Skin Appearance) Assessed -Temperature (Nahomy-wound Skin No Abnormality Appearance) (Pt Warm) -Tenderness on Palpation (Nahomy-wound No Skin Appearance) -Ulcer Cleansing Wound Cleanser -Foul Odor after Cleansing No -Anesthetic Used 4% Lidocaine Solution [Edema Assessment] -Lower Limb Edema Present Yes -Left Calf (cm) 36.5 -Left Ankle (cm) 25.3 WC - Nurse 2 - General Ulcer CM Notes Start: 01/18/18 13:01 Freq: Status: Active Protocol: Activity Type Activity Date Activity User E-Sign Co-Sign Detail Recorded Client Recorded Date Recorded By Document 02/01/18 13:18 [id number] 02/01/18 13:30 02/01/18 13:18 Wound Center Nurse 2 [Procedure/Treatment] #3 Medial LLE -Time 13:19 -Correct Patient Yes -Correct Side, Site, Position Yes -Correct Procedure Yes -Procedure Performed Yes -Type of Procedure Debridement -Clinical Debridement Subcutaneous -Post Debridement Size (cm) - Length 10.5 -Post Debridement Size (cm) - Width 5.5 -Post Debridement Size (cm) - Depth 0.2 -Total Square Cm 57.75 -Wound/Ulcer Outcome Not Healed -Ulcer Cleansing Rinsed/ Irrigated with Saline -Foul Odor after Cleansing No -Bioengineered Tissue No -Topical Lidocaine (%) 4 -Lidocaine (ml) 10 -Bleeding Controlled with NA -Treatment Response Procedure Tolerated Well #4 Lateral LLE -Time 13:19 -Correct Patient Yes -Correct Side, Site, Position Yes -Correct Procedure Yes -Procedure Performed Yes -Type of Procedure Debridement -Clinical Debridement Subcutaneous -Post Debridement Size (cm) - Length 10.5 -Post Debridement Size (cm) - Width 10.3 -Post Debridement Size (cm) - Depth 0.2 -Total Square Cm 108.15 -Wound/Ulcer Outcome Not Healed -Ulcer Cleansing Rinsed/ Irrigated with Saline -Foul Odor after Cleansing No -Bioengineered Tissue No -Topical Lidocaine (%) 4 -Lidocaine (ml) 10 -Bleeding Controlled with Pressure -Treatment Response Procedure Tolerated Well [See Physician Procedure note for Specifics] Pain Scale: 0-10 Numeric [Pain] -Is Patient Pain Free? Yes Musculoskeletal: No Muscle Wasting Neurological: Cranial nerves II-XII grossly intact, Neuro grossly intact Psych/Mental Status: Normal Affect, Appropriate, Alert and oriented to time, place, person, mood and affect Debridement Note Post-Debridement Measurements/Treatment WC - Nurse 2 - General Ulcer CM Notes Start: 01/18/18 13:01 Freq: Status: Active Protocol: Activity Type Activity Date Activity User E-Sign Co-Sign Detail Recorded Client Recorded Date Recorded By Document 01/18/18 13:12 [id number] 01/18/18 13:26 JS Document 02/01/18 13:18 [id number] 02/01/18 13:30 JS 01/18/18 02/01/18 13:12 13:18 Wound Center Nurse 2 #3 Medial LLE -Time 13:12 13:19 -Correct Patient Yes Yes -Correct Side, Site, Position Yes Yes -Correct Procedure Yes Yes -Procedure Performed Yes Yes -Type of Procedure Debridement Debridement -Clinical Debridement Subcutaneous Subcutaneous -Post Debridement Size (cm) - Length 10.5 10.5 -Post Debridement Size (cm) - Width 5.6 5.5 -Post Debridement Size (cm) - Depth 0.1 0.2 -Total Square Cm 58.80 57.75 -Wound/Ulcer Outcome Not Healed Not Healed -Ulcer Cleansing Rinsed/ Rinsed/ Irrigated with Irrigated with Saline Saline -Foul Odor after Cleansing No No -Bioengineered Tissue No No -Topical Lidocaine (%) 4 4 -Lidocaine (ml) 10 10 -Bleeding Controlled with NA NA -Treatment Response Procedure Procedure Tolerated Well Tolerated Well #4 Lateral LLE -Time 13:13 13:19 -Correct Patient Yes Yes -Correct Side, Site, Position Yes Yes -Correct Procedure Yes Yes -Procedure Performed Yes Yes -Type of Procedure Debridement Debridement -Clinical Debridement Subcutaneous Subcutaneous -Post Debridement Size (cm) - Length 10.5 10.5 -Post Debridement Size (cm) - Width 10.5 10.3 -Post Debridement Size (cm) - Depth 0.1 0.2 -Total Square Cm 110.25 108.15 -Wound/Ulcer Outcome Converted Not Healed -Ulcer Cleansing Rinsed/ Rinsed/ Irrigated with Irrigated with Saline Saline -Foul Odor after Cleansing No No -Bioengineered Tissue No No -Topical Lidocaine (%) 4 4 -Lidocaine (ml) 5 10 -Bleeding Controlled with Pressure -Treatment Response Procedure Procedure Tolerated Well Tolerated Well Pain Scale: 0-10 Numeric Is Patient Pain Free? Yes Yes Laterality: Left Type of Debridement: Excisional debridement Anesthesia Used: 4% Lidocaine Solution Depth: Down to and including healthy tissue, in the subcutaneous layer Percentage of wound debrided: 100 Instrument Used: 5mm curette Severity: Fat Layer Exposed Amount of bleeding with debridement: Mild Bleeding Controlled with: Compression and gauze Patient tolerated procedure well Assessment/Plan Active Problems Chronic venous hypertension with inflammation involving left side (Chronic) Left leg swelling (Chronic) Varicose veins with ulcer and inflammation (Chronic) Leg edema, left (Chronic) Chronic venous insufficiency (Chronic) Lymphedema of left leg (Chronic) 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 She has a large irregular ulceration on the left lower extremity which is related to her venous disease. The patient has demonstrated slow but progressive improvement. The base of the ulceration appears generally pink and healthy, with a moderate amount of biofilm and bioburden. We are to continue leg elevation, avoidance of idle standing and sitting, compression by means of SurePress, active lifestyle, weight control measures,etc. She is to continue to take a well-balanced, nutritious diet. We are to continue with the use of Silvadene topically. This will be applied topically on a daily basis. Plan: As above. The patient will return in 2 weeks for reevaluation. We are to continue Silvadene topically. Her continuing improvement suggests that present measures are appropriate and providing the desired results. Current measures include leg elevation, avoidance of idle standing and sitting, activity as tolerated, weight control, and compression by means of SurePress, applied by the patient on a daily basis. She is to continue with the use of XtraSorb for moisture control. The ulceration continues to be exudative, and the patient has been encouraged to enhance the amount of time spent elevating her lower extremity, to help minimize the drainage. Patient is also to continue the use of Vasculera orally on a daily basis, which appears to have made significant improvement. Patient will return in 2 weeks for reassessment. Patient weight is 160 pounds. Patient is 5 feet 9 inches tall. BMI is 23.6. We have discussed weight loss issues, the patient does not require counseling , as her BMI is reasonable. The patient is not a smoker. Influenza vaccine was not administered.
== END 2018-02-08 23:59 ==
LOC: WC 12:30
PROVIDERS: Visit Provider Surgery
DX: I83.222 Varicose veins of left lower extremity with both ulcer of calf and inflammation (principal); L97.222 Non-pressure chronic ulcer of left calf with fat layer exposed; M79.89 Other specified soft tissue disorders; R60.0 Localized edema; Z86.718 Personal history of other venous thrombosis and embolism; Z79.02 Long term (current) use of antithrombotics/antiplatelets; Z79.899 Other long term (current) drug therapy; Z79.52 Long term (current) use of systemic steroids
CPT/HCPCS: 11042; 11045

== ENCOUNTER 2018-03-01 12:30 | Outpatient (RCR) | payer MEDICARE, BC, SELFPAY ==
[2018-02-09 00:28] VITALS: BP 145/79; PULSE 73; RESP 16; TEMP 36
[2018-02-15 13:05] VITALS: BP 156/78; PULSE 67; RESP 16; TEMP 35.9
--- NOTE | 2018-02-15 13:53 | PCM.WC.HP ---
(1) Chronic venous hypertension with inflammation involving left side Status: Chronic Current Visit: Yes Code(s): I87.322 - Chronic venous hypertension (idiopathic) with inflammation of left lower extremity (2) Left leg swelling Status: Chronic Current Visit: Yes Code(s): M79.89 - Other specified soft tissue disorders (3) Varicose veins with ulcer and inflammation Status: Chronic Current Visit: Yes Code(s): I83.209 - Varicose veins of unspecified lower extremity with both ulcer of unspecified site and inflammation; L97.909 - Non-pressure chronic ulcer of unspecified part of unspecified lower leg with unspecified severity (4) Leg edema, left Status: Chronic Current Visit: Yes Code(s): R60.0 - Localized edema (5) May-Thurner syndrome Status: Resolved Current Visit: No Code(s): I87.1 - Compression of vein (6) History of DVT (deep vein thrombosis) Status: Chronic Current Visit: No Code(s): Z86.718 - Personal history of other venous thrombosis and embolism Comment: left lower ext (7) dermatomycosis leg Status: Resolved Current Visit: No (8) Cellulitis, leg Status: Resolved Current Visit: No Qualifiers: Code(s): L03.119 - Cellulitis of unspecified part of limb (9) Erythema of skin Status: Resolved Current Visit: No Code(s): L53.9 - Erythematous condition, unspecified (10) Cellulitis of leg Status: Resolved Current Visit: No Qualifiers: Code(s): L03.119 - Cellulitis of unspecified part of limb (11) Cellulitis Status: Resolved Current Visit: No Code(s): L03.90 - Cellulitis, unspecified (12) Chronic venous insufficiency Status: Chronic Current Visit: Yes (13) Lymphedema of left leg Status: Chronic Current Visit: Yes Code(s): I89.0 - Lymphedema, not elsewhere classified (14) 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 Status: Chronic Current Visit: Yes Code(s): I87.039 - Postthrombotic syndrome with ulcer and inflammation of unspecified lower extremity (15) Calf ulcer Status: Chronic Current Visit: Yes Qualifiers: Laterality: left Non-pressure ulcer stage: with fat layer exposed Qualified Code(s): L97.222 - Non-pressure chronic ulcer of left calf with fat layer exposed Code(s): L97.209 - Non-pressure chronic ulcer of unspecified calf with unspecified severity (16) chronic left lower ext wound Status: Chronic Current Visit: Yes History of Present Illness Date of Service: 02/15/18 Chief Complaint: Chronic venous insufficiency, chronic venous hypertension with inflammation and ulceration, varicose veins with inflammation and ulceration, post phlebitic syndrome with inflammation and ulceration,leg swelling, leg edema, lymphedema, venous stasis ulceration-left lower extremity History of Wound: This is a 77-year-old white female with a long-standing history of chronic venous disease and swelling in her left lower extremity. This has been present for many years. She has a large ulceration located between her left knee and ankle, which is quite large and irregular in shape, and also highly exudative. 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 She has also previously undergone successful endovenous laser ablation of the left great and small saphenous veins. Healing of the patient's left lower extremity ulceration has been slow, but progressive. A number of healing measures have been implemented in the past, without success. The patient is pleased with her current progress. We are currently using Silvadene topically and Xtrasorb for absorption of exudate. The patient's left calf ulceration continues to improve. It is smaller in size, with increasing areas of epithelialization, and diminishing dimensions of her left lower extremity ulceration. 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 (Chronic) chronic left lower ext wound (Chronic) Surgical History: appendectomy, hysterectomy Allergies/Adverse Reactions: Allergies Latex, Natural Rubber Allergy (Verified 07/12/13 11:34) Rash Sulfa (Sulfonamide Antibiotics) Allergy (Verified 07/12/13 11:34) Hives trimethoprim Allergy (Verified 07/12/13 11:34) Hives Home Medications: Ambulatory Orders Medication Instructions Recorded Aspirin [Aspirin, Baby] 81 mg PO DAILY@0800 07/12/13 Calcium Carb/Vitamin D [Os-Mo 1 tablet PO DAILY@0800 07/12/13 500MG + D] Clopidogrel Bisulfate [Plavix] 75 mg PO DAILY 07/12/13 Doxepin HCl [Sinequan] 100 mg PO BID 07/12/13 Doxycycline Monohydrate [Monodox] 100 mg PO BID 07/12/13 [place]-3 Fatty Acids/Fish Oil [Fish 1 each PO DAILY 07/12/13 Oil 1,000 mg Softgel] Vitamin B12 500 mg PO DAILY 07/12/13 Vitamin C 500 mg PO DAILY 07/12/13 proMETHazine soln (6.25mg/5mL) 5 ml PO Q4H PRN PRN 07/12/13 [Phenergan Plain] Prednisone [PredniSONE] 200 mg PO DAILY 07/03/14 Valacyclovir HCl [Valacyclovir] 500 mg PO DAILY 07/03/14 Smoking Status: Never smoker Tobacco Use: Non-smoker Review of Systems Constitutional: Denies: Chills, Fever, Weight Change Eyes: Denies: Pain, Vision Change HEENT: Denies: Difficulty Hearing, Difficulty Swallowing, Sinus Congestion Cardiovascular: Denies: Chest Pain, Palpitations Respiratory: Denies: Cough, Shortness of Breath Gastrointestinal: Denies: Diarrhea, Nausea, Vomiting Genitourinary: Denies: Dysuria, Hematuria Endocrine: Denies: Heat/ Cold Intolerance, Polydipsia, Polyuria Hematologic/ Lymphatic: Denies: Easy Bruising, Easy Bleeding - Physical Exam Vital Signs Temp Pulse Resp BP 96.6 F L 67 16 156/78 H 02/15/18 13:05 02/15/18 13:05 02/15/18 13:05 02/15/18 13:05 General: Alert, Oriented x3, Cooperative, No apparent distress, Well developed, Well nourished HEENT: Atraumatic, PERRLA, EOMI, Normocephalic Oral: Moist Mucosa Neck: No JVD Lungs: Normal air movement Abdomen: Non-Distended Extremities: No clubbing, No cyanosis, No Calf Tenderness, - - Swelling, edema, and lymphedema persists in the left lower extremity. It is noted most notably on the dorsum of the left foot. The ulceration of the left calf persists, and is highly irregular in shape. Dimensions are documented elsewhere. The base of the ulceration is pink and healthy in appearance, with a moderate amount of bioburden. There is no sign of infection or cellulitis. There are increasing areas of epithelialization. Wound Measurements and Assessment WC - Nurse 1 - General Ulcer Measurement Start: 02/15/18 13:05 Freq: Status: Active Protocol: Activity Type Activity Date Activity User E-Sign Co-Sign Detail Recorded Client Recorded Date Recorded By Document 02/15/18 13:05 [facility] [id number] 02/15/18 13:18 [facility] 02/15/18 13:05 Wound Center Nurse 1 [Ulcer Assessment] #3 Medial LLE -Combined with other wound No -Current Size (cm) - Length 10.3 -Current Size (cm) - Width 5.8 -Current Size (cm) - Depth 0.1 -Total Square Cm 59.74 -Photo Taken No -Epithelialization None Present -Tunneling No -Undermining/Tunneling No -Circular Undermining No -Exudate Amt Large (67-100%) -Exudate Type Serosanguineous -Wound Margin Distinct, Outline Attached -Granulation Amt Small (1-33%) -Granulation Quality Red -Slough/Fibrin Yes -Necrosis Amt Large (67-100%) -Necrotic Tissue Type Adherent Slough -Structure Exposed N/A -Texture (Nahomy-wound Skin Appearance) Scarring -Moisture (Nahomy-wound Skin Appearance Maceration ) Dry/Scaly -Color (Nahomy-wound Skin Appearance) Assessed -Temperature (Nahomy-wound Skin No Abnormality Appearance) (Pt Warm) -Tenderness on Palpation (Nahomy-wound No Skin Appearance) -Ulcer Cleansing Wound Cleanser -Foul Odor after Cleansing No -Anesthetic Used 4% Lidocaine Solution #4 Lateral LLE -Combined with other wound No -Current Size (cm) - Length 13 -Current Size (cm) - Width 13.5 -Current Size (cm) - Depth 0.1 -Total Square Cm 175.5 -Photo Taken No -Epithelialization None Present -Tunneling No -Undermining/Tunneling No -Circular Undermining No -Exudate Amt Large (67-100%) -Exudate Type Serosanguineous -Wound Margin Distinct, Outline Attached -Granulation Amt Small (1-33%) -Granulation Quality Red -Slough/Fibrin Yes -Necrosis Amt Large (67-100%) -Necrotic Tissue Type Adherent Slough -Structure Exposed N/A -Texture (Nahomy-wound Skin Appearance) Scarring -Moisture (Nahomy-wound Skin Appearance Maceration ) Dry/Scaly -Color (Nahomy-wound Skin Appearance) Assessed -Temperature (Nahomy-wound Skin No Abnormality Appearance) (Pt Warm) -Tenderness on Palpation (Nahomy-wound No Skin Appearance) -Ulcer Cleansing Wound Cleanser -Foul Odor after Cleansing No -Anesthetic Used 4% Lidocaine Solution [Edema Assessment] -Lower Limb Edema Present Yes -Left Calf (cm) 38.5 -Left Ankle (cm) 25.6 WC - Nurse 2 - General Ulcer CM Notes Start: 02/15/18 13:05 Freq: Status: Active Protocol: Activity Type Activity Date Activity User E-Sign Co-Sign Detail Recorded Client Recorded Date Recorded By Document 02/15/18 13:43 CARLOS [id number] 02/15/18 13:49 CARLOS 02/15/18 13:43 Wound Center Nurse 2 [Procedure/Treatment] #3 Medial LLE -Time 13:44 -Correct Patient Yes -Correct Side, Site, Position Yes -Correct Procedure Yes -Procedure Performed Yes -Type of Procedure Debridement -Clinical Debridement Subcutaneous -Post Debridement Size (cm) - Length 10.5 -Post Debridement Size (cm) - Width 9.5 -Post Debridement Size (cm) - Depth 0.2 -Total Square Cm 99.75 -Wound/Ulcer Outcome Not Healed -Ulcer Cleansing Rinsed/ Irrigated with Saline -Foul Odor after Cleansing No -Bioengineered Tissue No -Topical Lidocaine (%) 4 -Lidocaine (ml) 10 -Bleeding Controlled with NA -Treatment Response Procedure Tolerated Well #4 Lateral LLE -Time 13:44 -Correct Patient Yes -Correct Side, Site, Position Yes -Correct Procedure Yes -Procedure Performed Yes -Type of Procedure Debridement -Clinical Debridement Subcutaneous -Post Debridement Size (cm) - Length 11.0 -Post Debridement Size (cm) - Width 11.0 -Post Debridement Size (cm) - Depth 0.2 -Total Square Cm 121.00 -Wound/Ulcer Outcome Not Healed -Ulcer Cleansing Rinsed/ Irrigated with Saline -Foul Odor after Cleansing No -Bioengineered Tissue No -Topical Lidocaine (%) 4 -Lidocaine (ml) 10 -Bleeding Controlled with NA -Treatment Response Procedure Tolerated Well [See Physician Procedure note for Specifics] Pain Scale: 0-10 Numeric [Pain] -Is Patient Pain Free? Yes Neurological: Cranial nerves II-XII grossly intact, Neuro grossly intact Psych/Mental Status: Normal Affect, Appropriate, Alert and oriented to time, place, person, mood and affect Debridement Note Post-Debridement Measurements/Treatment WC - Nurse 2 - General Ulcer CM Notes Start: 02/15/18 13:05 Freq: Status: Active Protocol: Activity Type Activity Date Activity User E-Sign Co-Sign Detail Recorded Client Recorded Date Recorded By Document 02/15/18 13:43 CARLOS [id number] 02/15/18 13:49 CARLOS 02/15/18 13:43 Wound Center Nurse 2 #3 Medial LLE -Time 13:44 -Correct Patient Yes -Correct Side, Site, Position Yes -Correct Procedure Yes -Procedure Performed Yes -Type of Procedure Debridement -Clinical Debridement Subcutaneous -Post Debridement Size (cm) - Length 10.5 -Post Debridement Size (cm) - Width 9.5 -Post Debridement Size (cm) - Depth 0.2 -Total Square Cm 99.75 -Wound/Ulcer Outcome Not Healed -Ulcer Cleansing Rinsed/ Irrigated with Saline -Foul Odor after Cleansing No -Bioengineered Tissue No -Topical Lidocaine (%) 4 -Lidocaine (ml) 10 -Bleeding Controlled with NA -Treatment Response Procedure Tolerated Well #4 Lateral LLE -Time 13:44 -Correct Patient Yes -Correct Side, Site, Position Yes -Correct Procedure Yes -Procedure Performed Yes -Type of Procedure Debridement -Clinical Debridement Subcutaneous -Post Debridement Size (cm) - Length 11.0 -Post Debridement Size (cm) - Width 11.0 -Post Debridement Size (cm) - Depth 0.2 -Total Square Cm 121.00 -Wound/Ulcer Outcome Not Healed -Ulcer Cleansing Rinsed/ Irrigated with Saline -Foul Odor after Cleansing No -Bioengineered Tissue No -Topical Lidocaine (%) 4 -Lidocaine (ml) 10 -Bleeding Controlled with NA -Treatment Response Procedure Tolerated Well Pain Scale: 0-10 Numeric Is Patient Pain Free? Yes Laterality: Left - Calf Type of Debridement: Excisional debridement Anesthesia Used: 4% Lidocaine Solution Depth: Down to and including healthy tissue, in the subcutaneous layer Percentage of wound debrided: 100 Instrument Used: 7mm curette Severity: Fat Layer Exposed Amount of bleeding with debridement: Mild Bleeding Controlled with: Compression and gauze Patient tolerated procedure well Assessment/Plan Active Problems Chronic venous hypertension with inflammation involving left side (Chronic) Left leg swelling (Chronic) Varicose veins with ulcer and inflammation (Chronic) Leg edema, left (Chronic) Chronic venous insufficiency (Chronic) Lymphedema of left leg (Chronic) 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 She has a large irregular ulceration on the left lower extremity which is related to her venous disease. The patient has demonstrated slow but progressive improvement. The base of the ulceration appears generally pink and healthy, with a moderate amount of biofilm and bioburden. We are to continue leg elevation, avoidance of idle standing and sitting, compression by means of SurePress, active lifestyle, weight control measures,etc. She is to continue to take a well-balanced, nutritious diet. We are to continue with the use of Silvadene topically. This will be applied topically on a daily basis. Plan: As above. The patient will return in 2 weeks for reevaluation. We are to continue Silvadene topically. Her continuing improvement suggests that present measures are appropriate and providing the desired results. Current measures include leg elevation, avoidance of idle standing and sitting, activity as tolerated, weight control, and compression by means of SurePress, applied by the patient on a daily basis. She is to continue with the use of XtraSorb for moisture control. The ulceration continues to be exudative, and the patient has been encouraged to enhance the amount of time spent elevating her lower extremity, to help minimize the drainage. Patient is also to continue the use of Vasculera orally on a daily basis, which appears to have made significant improvement. Patient will return in 2 weeks for reassessment. Patient weight is 160 pounds. Patient is 5 feet 9 inches tall. BMI is 23.6. We have discussed weight loss issues, the patient does not require counseling, as her BMI is reasonable. The patient is not a smoker. Influenza vaccine was not administered.
--- NOTE | 2018-02-15 14:00 | HP.PCM_ITS ---
(1) Chronic venous hypertension with inflammation involving left side Status: Chronic Current Visit: Yes Code(s): I87.322 - Chronic venous hypertension (idiopathic) with inflammation of left lower extremity (2) Left leg swelling Status: Chronic Current Visit: Yes Code(s): M79.89 - Other specified soft tissue disorders (3) Varicose veins with ulcer and inflammation Status: Chronic Current Visit: Yes Code(s): I83.209 - Varicose veins of unspecified lower extremity with both ulcer of unspecified site and inflammation ; L97.909 - Non-pressure chronic ulcer of unspecified part of unspecified lower leg with unspecified severity (4) Leg edema, left Status: Chronic Current Visit: Yes Code(s): R60.0 - Localized edema (5) May-Thurner syndrome Status: Resolved Current Visit: No Code(s): I87.1 - Compression of vein (6) History of DVT (deep vein thrombosis) Status: Chronic Current Visit: No Code(s): Z86.718 - Personal history of other venous thrombosis and embolism Comment: left lower ext (7) dermatomycosis leg Status: Resolved Current Visit: No (8) Cellulitis, leg Status: Resolved Current Visit: No Qualifiers: Code(s): L03.119 - Cellulitis of unspecified part of limb (9) Erythema of skin Status: Resolved Current Visit: No Code(s): L53.9 - Erythematous condition, unspecified (10) Cellulitis of leg Status: Resolved Current Visit: No Qualifiers: Code(s): L03.119 - Cellulitis of unspecified part of limb (11) Cellulitis Status: Resolved Current Visit: No Code(s): L03.90 - Cellulitis, unspecified (12) Chronic venous insufficiency Status: Chronic Current Visit: Yes (13) Lymphedema of left leg Status: Chronic Current Visit: Yes Code(s): I89.0 - Lymphedema, not elsewhere classified (14) 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 Status: Chronic Current Visit: Yes Code(s): I87.039 - Postthrombotic syndrome with ulcer and inflammation of unspecified lower extremity (15) Calf ulcer Status: Chronic Current Visit: Yes Qualifiers: Laterality: left Non-pressure ulcer stage: with fat layer exposed Qualified Code(s): L97.222 - Non-pressure chronic ulcer of left calf with fat layer exposed Code(s): L97.209 - Non-pressure chronic ulcer of unspecified calf with unspecified severity (16) chronic left lower ext wound Status: Chronic Current Visit: Yes History of Present Illness Date of Service: 02/15/18 Chief Complaint: Chronic venous insufficiency, chronic venous hypertension with inflammation and ulceration, varicose veins with inflammation and ulceration, post phlebitic syndrome with inflammation and ulceration,leg swelling, leg edema , lymphedema, venous stasis ulceration-left lower extremity History of Wound: This is a 77-year-old white female with a long-standing history of chronic venous disease and swelling in her left lower extremity. This has been present for many years. She has a large ulceration located between her left knee and ankle, which is quite large and irregular in shape, and also highly exudative. 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 She has also previously undergone successful endovenous laser ablation of the left great and small saphenous veins. Healing of the patient's left lower extremity ulceration has been slow, but progressive. A number of healing measures have been implemented in the past , without success. The patient is pleased with her current progress. We are currently using Silvadene topically and Xtrasorb for absorption of exudate. The patient's left calf ulceration continues to improve. It is smaller in size , with increasing areas of epithelialization, and diminishing dimensions of her left lower extremity ulceration. 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 (Chronic) chronic left lower ext wound (Chronic) Surgical History: appendectomy, hysterectomy Allergies/Adverse Reactions: Allergies Latex, Natural Rubber Allergy (Verified 07/12/13 11:34) Rash Sulfa (Sulfonamide Antibiotics) Allergy (Verified 07/12/13 11:34) Hives trimethoprim Allergy (Verified 07/12/13 11:34) Hives Home Medications: Ambulatory Orders Medication Instructions Recorded Aspirin [Aspirin, Baby] 81 mg PO DAILY@0800 07/12/13 Calcium Carb/Vitamin D [Os-Mo 1 tablet PO DAILY@0800 07/12/13 500MG + D] Clopidogrel Bisulfate [Plavix] 75 mg PO DAILY 07/12/13 Doxepin HCl [Sinequan] 100 mg PO BID 07/12/13 Doxycycline Monohydrate [Monodox] 100 mg PO BID 07/12/13 Oxford-3 Fatty Acids/Fish Oil [Fish 1 each PO DAILY 07/12/13 Oil 1,000 mg Softgel] Vitamin B12 500 mg PO DAILY 07/12/13 Vitamin C 500 mg PO DAILY 07/12/13 proMETHazine soln (6.25mg/5mL) 5 ml PO Q4H PRN PRN 07/12/13 [Phenergan Plain] Prednisone [PredniSONE] 200 mg PO DAILY 07/03/14 Valacyclovir HCl [Valacyclovir] 500 mg PO DAILY 07/03/14 Smoking Status: Never smoker Tobacco Use: Non-smoker Review of Systems Constitutional: Denies: Chills, Fever, Weight Change Eyes: Denies: Pain, Vision Change HEENT: Denies: Difficulty Hearing, Difficulty Swallowing, Sinus Congestion Cardiovascular: Denies: Chest Pain, Palpitations Respiratory: Denies: Cough, Shortness of Breath Gastrointestinal: Denies: Diarrhea, Nausea, Vomiting Genitourinary: Denies: Dysuria, Hematuria Endocrine: Denies: Heat/ Cold Intolerance, Polydipsia, Polyuria Hematologic/ Lymphatic: Denies: Easy Bruising, Easy Bleeding - Physical Exam Vital Signs Temp Pulse Resp BP 96.6 F L 67 16 156/78 H 02/15/18 13:05 02/15/18 13:05 02/15/18 13:05 02/15/18 13:05 General: Alert, Oriented x3, Cooperative, No apparent distress, Well developed, Well nourished HEENT: Atraumatic, PERRLA, EOMI, Normocephalic Oral: Moist Mucosa Neck: No JVD Lungs: Normal air movement Abdomen: Non-Distended Extremities: No clubbing, No cyanosis, No Calf Tenderness, - - Swelling, edema, and lymphedema persists in the left lower extremity. It is noted most notably on the dorsum of the left foot. The ulceration of the left calf persists, and is highly irregular in shape. Dimensions are documented elsewhere. The base of the ulceration is pink and healthy in appearance, with a moderate amount of bioburden. There is no sign of infection or cellulitis. There are increasing areas of epithelialization. Wound Measurements and Assessment WC - Nurse 1 - General Ulcer Measurement Start: 02/15/18 13:05 Freq: Status: Active Protocol: Activity Type Activity Date Activity User E-Sign Co-Sign Detail Recorded Client Recorded Date Recorded By Document 02/15/18 13:05 [facility] [id number] 02/15/18 13:18 [facility] 02/15/18 13:05 Wound Center Nurse 1 [Ulcer Assessment] #3 Medial LLE -Combined with other wound No -Current Size (cm) - Length 10.3 -Current Size (cm) - Width 5.8 -Current Size (cm) - Depth 0.1 -Total Square Cm 59.74 -Photo Taken No -Epithelialization None Present -Tunneling No -Undermining/Tunneling No -Circular Undermining No -Exudate Amt Large (67-100%) -Exudate Type Serosanguineous -Wound Margin Distinct, Outline Attached -Granulation Amt Small (1-33%) -Granulation Quality Red -Slough/Fibrin Yes -Necrosis Amt Large (67-100%) -Necrotic Tissue Type Adherent Slough -Structure Exposed N/A -Texture (Nahomy-wound Skin Appearance) Scarring -Moisture (Nahomy-wound Skin Appearance Maceration ) Dry/Scaly -Color (Nahomy-wound Skin Appearance) Assessed -Temperature (Nahomy-wound Skin No Abnormality Appearance) (Pt Warm) -Tenderness on Palpation (Nahomy-wound No Skin Appearance) -Ulcer Cleansing Wound Cleanser -Foul Odor after Cleansing No -Anesthetic Used 4% Lidocaine Solution #4 Lateral LLE -Combined with other wound No -Current Size (cm) - Length 13 -Current Size (cm) - Width 13.5 -Current Size (cm) - Depth 0.1 -Total Square Cm 175.5 -Photo Taken No -Epithelialization None Present -Tunneling No -Undermining/Tunneling No -Circular Undermining No -Exudate Amt Large (67-100%) -Exudate Type Serosanguineous -Wound Margin Distinct, Outline Attached -Granulation Amt Small (1-33%) -Granulation Quality Red -Slough/Fibrin Yes -Necrosis Amt Large (67-100%) -Necrotic Tissue Type Adherent Slough -Structure Exposed N/A -Texture (Nahomy-wound Skin Appearance) Scarring -Moisture (Nahomy-wound Skin Appearance Maceration ) Dry/Scaly -Color (Nahomy-wound Skin Appearance) Assessed -Temperature (Nahomy-wound Skin No Abnormality Appearance) (Pt Warm) -Tenderness on Palpation (Nahomy-wound No Skin Appearance) -Ulcer Cleansing Wound Cleanser -Foul Odor after Cleansing No -Anesthetic Used 4% Lidocaine Solution [Edema Assessment] -Lower Limb Edema Present Yes -Left Calf (cm) 38.5 -Left Ankle (cm) 25.6 WC - Nurse 2 - General Ulcer CM Notes Start: 02/15/18 13:05 Freq: Status: Active Protocol: Activity Type Activity Date Activity User E-Sign Co-Sign Detail Recorded Client Recorded Date Recorded By Document 02/15/18 13:43 CARLOS [id number] 02/15/18 13:49 CARLOS 02/15/18 13:43 Wound Center Nurse 2 [Procedure/Treatment] #3 Medial LLE -Time 13:44 -Correct Patient Yes -Correct Side, Site, Position Yes -Correct Procedure Yes -Procedure Performed Yes -Type of Procedure Debridement -Clinical Debridement Subcutaneous -Post Debridement Size (cm) - Length 10.5 -Post Debridement Size (cm) - Width 9.5 -Post Debridement Size (cm) - Depth 0.2 -Total Square Cm 99.75 -Wound/Ulcer Outcome Not Healed -Ulcer Cleansing Rinsed/ Irrigated with Saline -Foul Odor after Cleansing No -Bioengineered Tissue No -Topical Lidocaine (%) 4 -Lidocaine (ml) 10 -Bleeding Controlled with NA -Treatment Response Procedure Tolerated Well #4 Lateral LLE -Time 13:44 -Correct Patient Yes -Correct Side, Site, Position Yes -Correct Procedure Yes -Procedure Performed Yes -Type of Procedure Debridement -Clinical Debridement Subcutaneous -Post Debridement Size (cm) - Length 11.0 -Post Debridement Size (cm) - Width 11.0 -Post Debridement Size (cm) - Depth 0.2 -Total Square Cm 121.00 -Wound/Ulcer Outcome Not Healed -Ulcer Cleansing Rinsed/ Irrigated with Saline -Foul Odor after Cleansing No -Bioengineered Tissue No -Topical Lidocaine (%) 4 -Lidocaine (ml) 10 -Bleeding Controlled with NA -Treatment Response Procedure Tolerated Well [See Physician Procedure note for Specifics] Pain Scale: 0-10 Numeric [Pain] -Is Patient Pain Free? Yes Neurological: Cranial nerves II-XII grossly intact, Neuro grossly intact Psych/Mental Status: Normal Affect, Appropriate, Alert and oriented to time, place, person, mood and affect Debridement Note Post-Debridement Measurements/Treatment WC - Nurse 2 - General Ulcer CM Notes Start: 02/15/18 13:05 Freq: Status: Active Protocol: Activity Type Activity Date Activity User E-Sign Co-Sign Detail Recorded Client Recorded Date Recorded By Document 02/15/18 13:43 CARLOS [id number] 02/15/18 13:49 CARLOS 02/15/18 13:43 Wound Center Nurse 2 #3 Medial LLE -Time 13:44 -Correct Patient Yes -Correct Side, Site, Position Yes -Correct Procedure Yes -Procedure Performed Yes -Type of Procedure Debridement -Clinical Debridement Subcutaneous -Post Debridement Size (cm) - Length 10.5 -Post Debridement Size (cm) - Width 9.5 -Post Debridement Size (cm) - Depth 0.2 -Total Square Cm 99.75 -Wound/Ulcer Outcome Not Healed -Ulcer Cleansing Rinsed/ Irrigated with Saline -Foul Odor after Cleansing No -Bioengineered Tissue No -Topical Lidocaine (%) 4 -Lidocaine (ml) 10 -Bleeding Controlled with NA -Treatment Response Procedure Tolerated Well #4 Lateral LLE -Time 13:44 -Correct Patient Yes -Correct Side, Site, Position Yes -Correct Procedure Yes -Procedure Performed Yes -Type of Procedure Debridement -Clinical Debridement Subcutaneous -Post Debridement Size (cm) - Length 11.0 -Post Debridement Size (cm) - Width 11.0 -Post Debridement Size (cm) - Depth 0.2 -Total Square Cm 121.00 -Wound/Ulcer Outcome Not Healed -Ulcer Cleansing Rinsed/ Irrigated with Saline -Foul Odor after Cleansing No -Bioengineered Tissue No -Topical Lidocaine (%) 4 -Lidocaine (ml) 10 -Bleeding Controlled with NA -Treatment Response Procedure Tolerated Well Pain Scale: 0-10 Numeric Is Patient Pain Free? Yes Laterality: Left - Calf Type of Debridement: Excisional debridement Anesthesia Used: 4% Lidocaine Solution Depth: Down to and including healthy tissue, in the subcutaneous layer Percentage of wound debrided: 100 Instrument Used: 7mm curette Severity: Fat Layer Exposed Amount of bleeding with debridement: Mild Bleeding Controlled with: Compression and gauze Patient tolerated procedure well Assessment/Plan Active Problems Chronic venous hypertension with inflammation involving left side (Chronic) Left leg swelling (Chronic) Varicose veins with ulcer and inflammation (Chronic) Leg edema, left (Chronic) Chronic venous insufficiency (Chronic) Lymphedema of left leg (Chronic) 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 She has a large irregular ulceration on the left lower extremity which is related to her venous disease. The patient has demonstrated slow but progressive improvement. The base of the ulceration appears generally pink and healthy, with a moderate amount of biofilm and bioburden. We are to continue leg elevation, avoidance of idle standing and sitting, compression by means of SurePress, active lifestyle, weight control measures,etc. She is to continue to take a well-balanced, nutritious diet. We are to continue with the use of Silvadene topically. This will be applied topically on a daily basis. Plan: As above. The patient will return in 2 weeks for reevaluation. We are to continue Silvadene topically. Her continuing improvement suggests that present measures are appropriate and providing the desired results. Current measures include leg elevation, avoidance of idle standing and sitting, activity as tolerated, weight control, and compression by means of SurePress, applied by the patient on a daily basis. She is to continue with the use of XtraSorb for moisture control. The ulceration continues to be exudative, and the patient has been encouraged to enhance the amount of time spent elevating her lower extremity, to help minimize the drainage. Patient is also to continue the use of Vasculera orally on a daily basis, which appears to have made significant improvement. Patient will return in 2 weeks for reassessment. Patient weight is 160 pounds. Patient is 5 feet 9 inches tall. BMI is 23.6. We have discussed weight loss issues, the patient does not require counseling , as her BMI is reasonable. The patient is not a smoker. Influenza vaccine was not administered.
[2018-03-01 12:29] VITALS: BP 154/69; PULSE 75; RESP 16; TEMP 36.9
--- NOTE | 2018-03-02 09:43 | PN_ITS ---
DATE OF SERVICE: 03/01/2018 The patient presents today with no new complaints. She is known to have a chronic venous ulceration on the left calf, which is quite large in size, and irregular in shape. She continues with conservative treatment measures, including leg elevation, avoidance of idle standing and sitting, active lifestyle, and compression by means of SurePress, which is applied daily. Silvadene is applied topically on a daily basis. The ulceration is slightly smaller in size, though remains rather large overall. Dimensions are documented elsewhere. There is a moderate amount of bioburden and nonviable tissue present. An excisional debridement has been performed today, using a sterile 5 mm curette. In this manner, the debridement was carried through all layers of the dermis and into the subcutaneous tissues. In this manner, the bioburden was removed. The debridement was performed after applying lidocaine 4% gel. The debridement process was well tolerated. A moderate amount of bleeding was encountered, which is usually controlled with manual pressure. We are to continue with Silvadene topically. Xtrasorb will be used for moisture control. Dressings will be changed daily. The patient is to continue using her mechanical compression pumps and to elevate her lower extremities as much as possible. Influenza vaccine was not administered today. The patient is not a smoker. The patient weighs 160 pounds. She stands 5 feet 9 inches tall. Her BMI is 23.6. The patient is not a smoker. The patient will return in 2 weeks for reassessment. She continues to do well, demonstrating healing slowly, but progressively. She continues to take Vasculera daily. Moise Pittman MD T: FLORECITA JOB: [id number]
== END 2018-03-11 23:59 ==
LOC: WC 12:30
PROVIDERS: Visit Provider Surgery
DX: I87.322 Chronic venous hypertension (idiopathic) with inflammation of left lower extremity (principal); I87.039 Postthrombotic syndrome with ulcer and inflammation of unspecified lower extremity; L97.222 Non-pressure chronic ulcer of left calf with fat layer exposed; M79.89 Other specified soft tissue disorders; R60.0 Localized edema; I87.1 Compression of vein; Z86.718 Personal history of other venous thrombosis and embolism; L53.9 Erythematous condition, unspecified; L03.119 Cellulitis of unspecified part of limb; I89.0 Lymphedema, not elsewhere classified; Z79.82 Long term (current) use of aspirin; Z68.23 Body mass index [BMI] 23.0-23.9, adult
CPT/HCPCS: 11042; 11045

== ENCOUNTER 2018-04-05 12:26 | Outpatient (RCR) | payer MEDICARE, BC, SELFPAY ==
[2018-03-12 00:30] VITALS: BP 154/69; PULSE 75; RESP 16; TEMP 36.9
--- NOTE | 2018-03-22 13:00 | HP.PCM_ITS ---
(1) Chronic venous hypertension with inflammation involving left side Status: Chronic Code(s): I87.322 - Chronic venous hypertension (idiopathic) with inflammation of left lower extremity (2) Left leg swelling Status: Chronic Code(s): M79.89 - Other specified soft tissue disorders (3) Varicose veins with ulcer and inflammation Status: Chronic Code(s): I83.209 - Varicose veins of unspecified lower extremity with both ulcer of unspecified site and inflammation; L97.909 - Non- pressure chronic ulcer of unspecified part of unspecified lower leg with unspecified severity (4) Leg edema, left Status: Chronic Code(s): R60.0 - Localized edema (5) May-Thurner syndrome Status: Resolved Code(s): I87.1 - Compression of vein (6) History of DVT (deep vein thrombosis) Status: Chronic Code(s): Z86.718 - Personal history of other venous thrombosis and embolism Comment: left lower ext (7) dermatomycosis leg Status: Resolved (8) Cellulitis, leg Status: Resolved Qualifiers: Code(s): L03.119 - Cellulitis of unspecified part of limb (9) Erythema of skin Status: Resolved Code(s): L53.9 - Erythematous condition, unspecified (10) Cellulitis of leg Status: Resolved Qualifiers: Code(s): L03.119 - Cellulitis of unspecified part of limb (11) Cellulitis Status: Resolved Code(s): L03.90 - Cellulitis, unspecified (12) Chronic venous insufficiency Status: Chronic (13) Lymphedema of left leg Status: Chronic Code(s): I89.0 - Lymphedema, not elsewhere classified (14) 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 Status: Chronic Code(s): I87.039 - Postthrombotic syndrome with ulcer and inflammation of unspecified lower extremity (15) Calf ulcer Status: Chronic Qualifiers: Code(s): L97.209 - Non-pressure chronic ulcer of unspecified calf with unspecified severity (16) chronic left lower ext wound Status: Chronic History of Present Illness Date of Service: 03/22/18 Chief Complaint: Chronic venous insufficiency, chronic venous hypertension with inflammation and ulceration, varicose veins with inflammation and ulceration, post phlebitic syndrome with inflammation and ulceration,leg swelling, leg edema , lymphedema, venous stasis ulceration-left lower extremity History of Wound: This is a 78-year-old white female with a long-standing history of chronic venous disease and swelling in her left lower extremity. This has been present for many years. She has a large ulceration located between her left knee and ankle, which is quite large and irregular in shape, and also highly exudative. 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 She has also previously undergone successful endovenous laser ablation of the left great and small saphenous veins. Healing of the patient's left lower extremity ulceration has been slow, but progressive. A number of healing measures have been implemented in the past , without success. The patient is pleased with her current progress. We are currently using Silvadene topically and Xtrasorb for absorption of exudate. The patient's left calf ulceration continues to improve. It is smaller in size , with increasing areas of epithelialization, and diminishing dimensions of her left lower extremity ulceration. 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 (Chronic) chronic left lower ext wound (Chronic) Surgical History: appendectomy, hysterectomy Allergies/Adverse Reactions: Allergies Latex, Natural Rubber Allergy (Verified 07/12/13 11:34) Rash Sulfa (Sulfonamide Antibiotics) Allergy (Verified 07/12/13 11:34) Hives trimethoprim Allergy (Verified 07/12/13 11:34) Hives Home Medications: Ambulatory Orders Medication Instructions Recorded Aspirin [Aspirin, Baby] 81 mg PO DAILY@0800 07/12/13 Calcium Carb/Vitamin D [Os-Mo 1 tablet PO DAILY@0800 07/12/13 500MG + D] Clopidogrel Bisulfate [Plavix] 75 mg PO DAILY 07/12/13 Doxepin HCl [Sinequan] 100 mg PO BID 07/12/13 Doxycycline Monohydrate [Monodox] 100 mg PO BID 07/12/13 [place]-3 Fatty Acids/Fish Oil [Fish 1 each PO DAILY 07/12/13 Oil 1,000 mg Softgel] Vitamin B12 500 mg PO DAILY 07/12/13 Vitamin C 500 mg PO DAILY 07/12/13 proMETHazine soln (6.25mg/5mL) 5 ml PO Q4H PRN PRN 07/12/13 [Phenergan Plain] Prednisone [PredniSONE] 200 mg PO DAILY 07/03/14 Valacyclovir HCl [Valacyclovir] 500 mg PO DAILY 07/03/14 Smoking Status: Never smoker Tobacco Use: Non-smoker Review of Systems Constitutional: Denies: Chills, Fever, Weight Change Eyes: Denies: Pain, Vision Change HEENT: Denies: Difficulty Hearing, Difficulty Swallowing, Sinus Congestion Cardiovascular: Denies: Chest Pain, Palpitations Respiratory: Denies: Cough, Shortness of Breath Gastrointestinal: Denies: Diarrhea, Nausea, Vomiting Genitourinary: Denies: Dysuria, Hematuria Endocrine: Denies: Heat/ Cold Intolerance, Polydipsia, Polyuria Hematologic/ Lymphatic: Denies: Easy Bruising, Easy Bleeding - Physical Exam Vital Signs Temp Pulse Resp BP 98.4 F 75 16 154/69 H 03/12/18 00:30 03/12/18 00:30 03/12/18 00:30 03/12/18 00:30 General: Alert, Oriented x3, Cooperative, No apparent distress, Well developed, Well nourished HEENT: Atraumatic, PERRLA, EOMI, Normocephalic Oral: Moist Mucosa Neck: No JVD Lungs: Normal air movement Abdomen: Non-Distended Extremities: No clubbing, No cyanosis, No Calf Tenderness, - - Edema persists in the left lower extremity, most notable on the dorsum of the left foot. Ulceration of the left calf continues to diminish in size slowly. There are increasing areas of epithelialization. Ulcer dimensions are documented elsewhere. The ulcer is very irregular in shape. The base of the ulceration is generally pink and healthy in appearance, with a moderate amount of bioburden. There is no sign of infection or cellulitis. Skin: No rashes Neurological: Cranial nerves II-XII grossly intact, Neuro grossly intact Psych/Mental Status: Normal Affect, Appropriate, Alert and oriented to time, place, person, mood and affect Debridement Note Laterality: Left - Calf Type of Debridement: Excisional debridement Anesthesia Used: 4% Lidocaine Solution Depth: Down to and including healthy tissue, in the subcutaneous layer Percentage of wound debrided: 100 Instrument Used: 5mm curette Severity: Fat Layer Exposed Amount of bleeding with debridement: Mild Bleeding Controlled with: Compression and gauze Patient tolerated procedure well Assessment/Plan Assessment: This is a 77-year-old white female with chronic venous insufficiency , chronic venous hypertension with inflammation and ulceration, varicose veins with inflammation and ulceration, post-phlebitic syndrome with inflammation and ulceration, and left lower extremity swelling and edema and lymphedema. She has a large irregular ulceration on the left lower extremity which is related to her venous disease. The patient has demonstrated slow but progressive improvement. The base of the ulceration appears generally pink and healthy, with a moderate amount of biofilm and bioburden. We are to continue leg elevation, avoidance of idle standing and sitting, compression by means of SurePress, active lifestyle, weight control measures,etc. She is to continue to take a well-balanced, nutritious diet. We are to continue with the use of Silvadene topically. This will be applied topically on a daily basis. Plan: As above. The patient will return in 2 weeks for reevaluation. We are to continue Silvadene topically. Her continuing improvement suggests that present measures are appropriate and providing the desired results. Current measures include leg elevation, avoidance of idle standing and sitting, activity as tolerated, weight control, and compression by means of SurePress, applied by the patient on a daily basis. She is to continue with the use of XtraSorb for moisture control. The ulceration continues to be exudative, and the patient has been encouraged to enhance the amount of time spent elevating her lower extremity, to help minimize the drainage. Patient is also to continue the use of Vasculera orally on a daily basis, which appears to have made significant improvement. Nutritional optimization has been recommended. Patient will return in 2 weeks for reassessment. Patient weight is 160 pounds. Patient is 5 feet 9 inches tall. BMI is 23.6. We have discussed weight loss issues, the patient does not require counseling, as her BMI is reasonable. The patient is not a smoker. Influenza vaccine was not administered.
[2018-04-05 12:44] VITALS: BP 143/71; PULSE 71; RESP 16; TEMP 36.6
--- NOTE | 2018-04-05 13:32 | PCM.WC.HP ---
(1) Chronic venous hypertension with inflammation involving left side Status: Chronic Current Visit: Yes Code(s): I87.322 - Chronic venous hypertension (idiopathic) with inflammation of left lower extremity (2) Left leg swelling Status: Chronic Current Visit: Yes Code(s): M79.89 - Other specified soft tissue disorders (3) Varicose veins with ulcer and inflammation Status: Chronic Current Visit: Yes Code(s): I83.209 - Varicose veins of unspecified lower extremity with both ulcer of unspecified site and inflammation; L97.909 - Non-pressure chronic ulcer of unspecified part of unspecified lower leg with unspecified severity (4) Leg edema, left Status: Chronic Current Visit: Yes Code(s): R60.0 - Localized edema (5) History of DVT (deep vein thrombosis) Status: Chronic Current Visit: Yes Code(s): Z86.718 - Personal history of other venous thrombosis and embolism Comment: left lower ext (6) Chronic venous insufficiency Status: Chronic Current Visit: Yes (7) Lymphedema of left leg Status: Chronic Current Visit: Yes Code(s): I89.0 - Lymphedema, not elsewhere classified (8) 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 Status: Chronic Current Visit: Yes Code(s): I87.039 - Postthrombotic syndrome with ulcer and inflammation of unspecified lower extremity (9) Calf ulcer Status: Chronic Current Visit: Yes Qualifiers: Laterality: left Code(s): L97.209 - Non-pressure chronic ulcer of unspecified calf with unspecified severity (10) chronic left lower ext wound Status: Chronic Current Visit: Yes History of Present Illness Date of Service: 04/05/18 Chief Complaint: Chronic venous insufficiency, chronic venous hypertension with inflammation and ulceration, varicose veins with inflammation and ulceration, post phlebitic syndrome with inflammation and ulceration,leg swelling, leg edema, lymphedema, venous stasis ulceration-left lower extremity History of Wound: This is a 78-year-old white female with a long-standing history of chronic venous disease and swelling in her left lower extremity. This has been present for many years. She has a large ulceration located between her left knee and ankle, which is quite large and irregular in shape, and also highly exudative. 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 She has also previously undergone successful endovenous laser ablation of the left great and small saphenous veins. Healing of the patient's left lower extremity ulceration has been slow, but progressive. A number of healing measures have been implemented in the past, without success. The patient is pleased with her current progress. We are currently using Silvadene topically and Xtrasorb for absorption of exudate. The patient's left calf ulceration continues to improve. It is smaller in size, with increasing areas of epithelialization, and diminishing dimensions of her left lower extremity ulceration. 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 (Chronic) chronic left lower ext wound (Chronic) Surgical History: appendectomy, hysterectomy Allergies/Adverse Reactions: Allergies Latex, Natural Rubber Allergy (Verified 07/12/13 11:34) Rash Sulfa (Sulfonamide Antibiotics) Allergy (Verified 07/12/13 11:34) Hives trimethoprim Allergy (Verified 07/12/13 11:34) Hives Home Medications: Ambulatory Orders Medication Instructions Recorded Aspirin [Aspirin, Baby] 81 mg PO DAILY@0800 07/12/13 Calcium Carb/Vitamin D [Os-Mo 1 tablet PO DAILY@0800 07/12/13 500MG + D] Clopidogrel Bisulfate [Plavix] 75 mg PO DAILY 07/12/13 Doxepin HCl [Sinequan] 100 mg PO BID 07/12/13 Doxycycline Monohydrate [Monodox] 100 mg PO BID 07/12/13 [place]-3 Fatty Acids/Fish Oil [Fish 1 each PO DAILY 07/12/13 Oil 1,000 mg Softgel] Vitamin B12 500 mg PO DAILY 07/12/13 Vitamin C 500 mg PO DAILY 07/12/13 proMETHazine soln (6.25mg/5mL) 5 ml PO Q4H PRN PRN 07/12/13 [Phenergan Plain] Prednisone [PredniSONE] 200 mg PO DAILY 07/03/14 Valacyclovir HCl [Valacyclovir] 500 mg PO DAILY 07/03/14 Smoking Status: Never smoker Tobacco Use: Non-smoker Review of Systems Constitutional: Denies: Chills, Fever, Weight Change Eyes: Denies: Pain, Vision Change HEENT: Denies: Difficulty Hearing, Difficulty Swallowing, Sinus Congestion Cardiovascular: Denies: Chest Pain, Palpitations Respiratory: Denies: Cough, Shortness of Breath Gastrointestinal: Denies: Diarrhea, Nausea, Vomiting Genitourinary: Denies: Dysuria, Hematuria Endocrine: Denies: Heat/ Cold Intolerance, Polydipsia, Polyuria Hematologic/ Lymphatic: Denies: Easy Bruising, Easy Bleeding - Physical Exam Vital Signs Temp Pulse Resp BP 97.8 F 71 16 143/71 H 04/05/18 12:44 04/05/18 12:44 04/05/18 12:44 04/05/18 12:44 General: Alert, Oriented x3, Cooperative, No apparent distress, Well developed, Well nourished HEENT: Atraumatic, PERRLA, EOMI, Normocephalic Oral: Moist Mucosa Neck: No JVD Lungs: Normal air movement Abdomen: Non-Distended Extremities: No clubbing, No cyanosis, No Calf Tenderness, - - Swelling, edema, and lymphedema persist in the left lower extremity. It is most prominent on the dorsum of the left foot. The ulceration of the left calf is smaller in size. Dimensions are documented elsewhere. The shape of the ulceration is highly irregular. There are several skin bridges. There is increased peripheral epithelialization. The base of the ulceration is generally pink, with a moderate amount of bioburden and nonviable tissue. There is no sign of infection or cellulitis. Wound Measurements and Assessment WC - Nurse 1 - General Ulcer Measurement Start: 04/05/18 12:43 Freq: Status: Active Protocol: Activity Type Activity Date Activity User E-Sign Co-Sign Detail Recorded Client Recorded Date Recorded By Document 04/05/18 12:44 NC [id number] 04/05/18 13:04 NC 04/05/18 12:44 Wound Center Nurse 1 [Ulcer Assessment] #3 Medial LLE -Current Size (cm) - Length 10.5 -Current Size (cm) - Width 6.2 -Current Size (cm) - Depth 0.1 -Total Square Cm 65.10 -Photo Taken Yes -Epithelialization None Present -Tunneling No -Undermining/Tunneling No -Circular Undermining No -Exudate Amt Large (67-100%) -Exudate Type Yellow/Green -Wound Margin Flat & Intact -Granulation Amt Small (1-33%) -Granulation Quality [place] -Slough/Fibrin Yes -Necrosis Amt Large (67-100%) -Necrotic Tissue Type Adherent Slough -Structure Exposed N/A -Texture (Nahomy-wound Skin Appearance) Assessed Excoriation Localized Edema -Moisture (Nahomy-wound Skin Appearance Assessed ) Dry/Scaly -Color (Nahomy-wound Skin Appearance) Assessed Hemosiderin Staining -Temperature (Nahomy-wound Skin No Abnormality Appearance) (Pt Warm) -Tenderness on Palpation (Nahomy-wound Yes Skin Appearance) -Ulcer Cleansing Wound Cleanser -Foul Odor after Cleansing No -Anesthetic Used 4% Lidocaine Solution #4 Lateral LLE -Current Size (cm) - Length 10.6 -Current Size (cm) - Width 13.5 -Current Size (cm) - Depth 0.1 -Total Square Cm 143.10 -Photo Taken Yes -Epithelialization None Present -Tunneling No -Undermining/Tunneling No -Circular Undermining No -Wound Margin Flat & Intact -Granulation Amt Small (1-33%) -Granulation Quality [place] -Slough/Fibrin Yes -Necrosis Amt Large (67-100%) -Necrotic Tissue Type Adherent Slough -Structure Exposed N/A -Texture (Nahomy-wound Skin Appearance) Assessed Excoriation Localized Edema -Moisture (Nahomy-wound Skin Appearance Assessed ) Dry/Scaly -Color (Nahomy-wound Skin Appearance) Assessed Hemosiderin Staining -Temperature (Nahomy-wound Skin No Abnormality Appearance) (Pt Warm) -Tenderness on Palpation (Nahomy-wound Yes Skin Appearance) -Ulcer Cleansing Wound Cleanser -Anesthetic Used 4% Lidocaine Solution [Edema Assessment] -Lower Limb Edema Present Yes -Left Calf (cm) 38.5 -Left Ankle (cm) 24.1 WC - Nurse 2 - General Ulcer CM Notes Start: 04/05/18 12:43 Freq: Status: Active Protocol: Activity Type Activity Date Activity User E-Sign Co-Sign Detail Recorded Client Recorded Date Recorded By Document 04/05/18 13:17 [id number] 04/05/18 13:28 CS 04/05/18 13:17 Wound Center Nurse 2 [Procedure/Treatment] #3 Medial LLE -Time 13:19 -Correct Patient Yes -Correct Side, Site, Position Yes -Correct Procedure Yes -Procedure Performed Yes -Type of Procedure Debridement -Clinical Debridement Subcutaneous -Post Debridement Size (cm) - Length 10.5 -Post Debridement Size (cm) - Width 9.0 -Post Debridement Size (cm) - Depth 0.2 -Total Square Cm 94.50 -Wound/Ulcer Outcome Not Healed -Ulcer Cleansing Not Cleansed -Foul Odor after Cleansing No -Bioengineered Tissue No -Bleeding Controlled with Pressure -Treatment Response Procedure Tolerated Well #4 Lateral LLE -Time 13:19 -Correct Patient Yes -Correct Side, Site, Position Yes -Correct Procedure Yes -Procedure Performed Yes -Type of Procedure Debridement -Clinical Debridement Subcutaneous -Post Debridement Size (cm) - Length 13.3 -Post Debridement Size (cm) - Width 10.9 -Post Debridement Size (cm) - Depth 0.2 -Total Square Cm 144.97 -Wound/Ulcer Outcome Not Healed -Ulcer Cleansing Not Cleansed -Bioengineered Tissue No -Bleeding Controlled with Pressure -Treatment Response Procedure Tolerated Well [See Physician Procedure note for Specifics] Pain Scale: 0-10 Numeric [Pain] -Is Patient Pain Free? Yes Musculoskeletal: No Muscle Wasting Neurological: Cranial nerves II-XII grossly intact, Neuro grossly intact Psych/Mental Status: Normal Affect, Appropriate, Alert and oriented to time, place, person, mood and affect Debridement Note Post-Debridement Measurements/Treatment WC - Nurse 2 - General Ulcer CM Notes Start: 04/05/18 12:43 Freq: Status: Active Protocol: Activity Type Activity Date Activity User E-Sign Co-Sign Detail Recorded Client Recorded Date Recorded By Document 04/05/18 13:17 [email or web address] 04/05/18 13:28 04/05/18 13:17 Wound Center Nurse 2 #3 Medial LLE -Time 13:19 -Correct Patient Yes -Correct Side, Site, Position Yes -Correct Procedure Yes -Procedure Performed Yes -Type of Procedure Debridement -Clinical Debridement Subcutaneous -Post Debridement Size (cm) - Length 10.5 -Post Debridement Size (cm) - Width 9.0 -Post Debridement Size (cm) - Depth 0.2 -Total Square Cm 94.50 -Wound/Ulcer Outcome Not Healed -Ulcer Cleansing Not Cleansed -Foul Odor after Cleansing No -Bioengineered Tissue No -Bleeding Controlled with Pressure -Treatment Response Procedure Tolerated Well #4 Lateral LLE -Time 13:19 -Correct Patient Yes -Correct Side, Site, Position Yes -Correct Procedure Yes -Procedure Performed Yes -Type of Procedure Debridement -Clinical Debridement Subcutaneous -Post Debridement Size (cm) - Length 13.3 -Post Debridement Size (cm) - Width 10.9 -Post Debridement Size (cm) - Depth 0.2 -Total Square Cm 144.97 -Wound/Ulcer Outcome Not Healed -Ulcer Cleansing Not Cleansed -Bioengineered Tissue No -Bleeding Controlled with Pressure -Treatment Response Procedure Tolerated Well Pain Scale: 0-10 Numeric Is Patient Pain Free? Yes Laterality: Left - Calf Type of Debridement: Excisional debridement Anesthesia Used: 4% Lidocaine Solution Depth: Down to and including healthy tissue, in the subcutaneous layer Percentage of wound debrided: 100 Instrument Used: 5mm curette Severity: Fat Layer Exposed Amount of bleeding with debridement: Mild Bleeding Controlled with: Compression and gauze Patient tolerated procedure well Assessment/Plan Active Problems Chronic venous hypertension with inflammation involving left side (Chronic) Left leg swelling (Chronic) Varicose veins with ulcer and inflammation (Chronic) Leg edema, left (Chronic) History of DVT (deep vein thrombosis) (Chronic) left lower ext Chronic venous insufficiency (Chronic) Lymphedema of left leg (Chronic) 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 She has a large irregular ulceration on the left lower extremity which is related to her venous disease. The patient has demonstrated slow but progressive improvement. The base of the ulceration appears generally pink and healthy, with a moderate amount of biofilm and bioburden. We are to continue leg elevation, avoidance of idle standing and sitting, compression by means of SurePress, active lifestyle, weight control measures,etc. She is to continue to take a well-balanced, nutritious diet. We are to continue with the use of Silvadene topically. This will be applied topically on a daily basis. Plan: As above. The patient will return in 2 weeks for reevaluation. We are to continue Silvadene topically. Her continuing improvement suggests that present measures are appropriate and providing the desired results. Current measures include leg elevation, avoidance of idle standing and sitting, activity as tolerated, weight control, and compression by means of SurePress, applied by the patient on a daily basis. She is to continue with the use of XtraSorb for moisture control. The ulceration continues to be exudative, and the patient has been encouraged to enhance the amount of time spent elevating her lower extremity, to help minimize the drainage. Patient is also to continue the use of Vasculera orally on a daily basis, which appears to have made significant improvement. Nutritional optimization has been recommended. Patient will return in 2 weeks for reassessment. Patient weight is 160 pounds. Patient is 5 feet 9 inches tall. BMI is 23.6. We have discussed weight loss issues, the patient does not require counseling, as her BMI is reasonable. The patient is not a smoker. Influenza vaccine was not administered.
--- NOTE | 2018-04-05 13:36 | HP.PCM_ITS ---
(1) Chronic venous hypertension with inflammation involving left side Status: Chronic Current Visit: Yes Code(s): I87.322 - Chronic venous hypertension (idiopathic) with inflammation of left lower extremity (2) Left leg swelling Status: Chronic Current Visit: Yes Code(s): M79.89 - Other specified soft tissue disorders (3) Varicose veins with ulcer and inflammation Status: Chronic Current Visit: Yes Code(s): I83.209 - Varicose veins of unspecified lower extremity with both ulcer of unspecified site and inflammation ; L97.909 - Non-pressure chronic ulcer of unspecified part of unspecified lower leg with unspecified severity (4) Leg edema, left Status: Chronic Current Visit: Yes Code(s): R60.0 - Localized edema (5) History of DVT (deep vein thrombosis) Status: Chronic Current Visit: Yes Code(s): Z86.718 - Personal history of other venous thrombosis and embolism Comment: left lower ext (6) Chronic venous insufficiency Status: Chronic Current Visit: Yes (7) Lymphedema of left leg Status: Chronic Current Visit: Yes Code(s): I89.0 - Lymphedema, not elsewhere classified (8) 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 Status: Chronic Current Visit: Yes Code(s): I87.039 - Postthrombotic syndrome with ulcer and inflammation of unspecified lower extremity (9) Calf ulcer Status: Chronic Current Visit: Yes Qualifiers: Laterality: left Code(s): L97.209 - Non-pressure chronic ulcer of unspecified calf with unspecified severity (10) chronic left lower ext wound Status: Chronic Current Visit: Yes History of Present Illness Date of Service: 04/05/18 Chief Complaint: Chronic venous insufficiency, chronic venous hypertension with inflammation and ulceration, varicose veins with inflammation and ulceration, post phlebitic syndrome with inflammation and ulceration,leg swelling, leg edema , lymphedema, venous stasis ulceration-left lower extremity History of Wound: This is a 78-year-old white female with a long-standing history of chronic venous disease and swelling in her left lower extremity. This has been present for many years. She has a large ulceration located between her left knee and ankle, which is quite large and irregular in shape, and also highly exudative. 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 She has also previously undergone successful endovenous laser ablation of the left great and small saphenous veins. Healing of the patient's left lower extremity ulceration has been slow, but progressive. A number of healing measures have been implemented in the past , without success. The patient is pleased with her current progress. We are currently using Silvadene topically and Xtrasorb for absorption of exudate. The patient's left calf ulceration continues to improve. It is smaller in size , with increasing areas of epithelialization, and diminishing dimensions of her left lower extremity ulceration. 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 (Chronic) chronic left lower ext wound (Chronic) Surgical History: appendectomy, hysterectomy Allergies/Adverse Reactions: Allergies Latex, Natural Rubber Allergy (Verified 07/12/13 11:34) Rash Sulfa (Sulfonamide Antibiotics) Allergy (Verified 07/12/13 11:34) Hives trimethoprim Allergy (Verified 07/12/13 11:34) Hives Home Medications: Ambulatory Orders Medication Instructions Recorded Aspirin [Aspirin, Baby] 81 mg PO DAILY@0800 07/12/13 Calcium Carb/Vitamin D [Os-Mo 1 tablet PO DAILY@0800 07/12/13 500MG + D] Clopidogrel Bisulfate [Plavix] 75 mg PO DAILY 07/12/13 Doxepin HCl [Sinequan] 100 mg PO BID 07/12/13 Doxycycline Monohydrate [Monodox] 100 mg PO BID 07/12/13 [place]-3 Fatty Acids/Fish Oil [Fish 1 each PO DAILY 07/12/13 Oil 1,000 mg Softgel] Vitamin B12 500 mg PO DAILY 07/12/13 Vitamin C 500 mg PO DAILY 07/12/13 proMETHazine soln (6.25mg/5mL) 5 ml PO Q4H PRN PRN 07/12/13 [Phenergan Plain] Prednisone [PredniSONE] 200 mg PO DAILY 07/03/14 Valacyclovir HCl [Valacyclovir] 500 mg PO DAILY 07/03/14 Smoking Status: Never smoker Tobacco Use: Non-smoker Review of Systems Constitutional: Denies: Chills, Fever, Weight Change Eyes: Denies: Pain, Vision Change HEENT: Denies: Difficulty Hearing, Difficulty Swallowing, Sinus Congestion Cardiovascular: Denies: Chest Pain, Palpitations Respiratory: Denies: Cough, Shortness of Breath Gastrointestinal: Denies: Diarrhea, Nausea, Vomiting Genitourinary: Denies: Dysuria, Hematuria Endocrine: Denies: Heat/ Cold Intolerance, Polydipsia, Polyuria Hematologic/ Lymphatic: Denies: Easy Bruising, Easy Bleeding - Physical Exam Vital Signs Temp Pulse Resp BP 97.8 F 71 16 143/71 H 04/05/18 12:44 04/05/18 12:44 04/05/18 12:44 04/05/18 12:44 General: Alert, Oriented x3, Cooperative, No apparent distress, Well developed, Well nourished HEENT: Atraumatic, PERRLA, EOMI, Normocephalic Oral: Moist Mucosa Neck: No JVD Lungs: Normal air movement Abdomen: Non-Distended Extremities: No clubbing, No cyanosis, No Calf Tenderness, - - Swelling, edema, and lymphedema persist in the left lower extremity. It is most prominent on the dorsum of the left foot. The ulceration of the left calf is smaller in size. Dimensions are documented elsewhere. The shape of the ulceration is highly irregular. There are several skin bridges. There is increased peripheral epithelialization. The base of the ulceration is generally pink, with a moderate amount of bioburden and nonviable tissue. There is no sign of infection or cellulitis. Wound Measurements and Assessment WC - Nurse 1 - General Ulcer Measurement Start: 04/05/18 12:43 Freq: Status: Active Protocol: Activity Type Activity Date Activity User E-Sign Co-Sign Detail Recorded Client Recorded Date Recorded By Document 04/05/18 12:44 WI [id number] 04/05/18 13:04 WI 04/05/18 12:44 Wound Center Nurse 1 [Ulcer Assessment] #3 Medial LLE -Current Size (cm) - Length 10.5 -Current Size (cm) - Width 6.2 -Current Size (cm) - Depth 0.1 -Total Square Cm 65.10 -Photo Taken Yes -Epithelialization None Present -Tunneling No -Undermining/Tunneling No -Circular Undermining No -Exudate Amt Large (67-100%) -Exudate Type Yellow/Green -Wound Margin Flat & Intact -Granulation Amt Small (1-33%) -Granulation Quality [place] -Slough/Fibrin Yes -Necrosis Amt Large (67-100%) -Necrotic Tissue Type Adherent Slough -Structure Exposed N/A -Texture (Nahomy-wound Skin Appearance) Assessed Excoriation Localized Edema -Moisture (Nahomy-wound Skin Appearance Assessed ) Dry/Scaly -Color (Nahomy-wound Skin Appearance) Assessed Hemosiderin Staining -Temperature (Nahomy-wound Skin No Abnormality Appearance) (Pt Warm) -Tenderness on Palpation (Nahomy-wound Yes Skin Appearance) -Ulcer Cleansing Wound Cleanser -Foul Odor after Cleansing No -Anesthetic Used 4% Lidocaine Solution #4 Lateral LLE -Current Size (cm) - Length 10.6 -Current Size (cm) - Width 13.5 -Current Size (cm) - Depth 0.1 -Total Square Cm 143.10 -Photo Taken Yes -Epithelialization None Present -Tunneling No -Undermining/Tunneling No -Circular Undermining No -Wound Margin Flat & Intact -Granulation Amt Small (1-33%) -Granulation Quality [place] -Slough/Fibrin Yes -Necrosis Amt Large (67-100%) -Necrotic Tissue Type Adherent Slough -Structure Exposed N/A -Texture (Nahomy-wound Skin Appearance) Assessed Excoriation Localized Edema -Moisture (Nahomy-wound Skin Appearance Assessed ) Dry/Scaly -Color (Nahomy-wound Skin Appearance) Assessed Hemosiderin Staining -Temperature (Nahomy-wound Skin No Abnormality Appearance) (Pt Warm) -Tenderness on Palpation (Nahomy-wound Yes Skin Appearance) -Ulcer Cleansing Wound Cleanser -Anesthetic Used 4% Lidocaine Solution [Edema Assessment] -Lower Limb Edema Present Yes -Left Calf (cm) 38.5 -Left Ankle (cm) 24.1 WC - Nurse 2 - General Ulcer CM Notes Start: 04/05/18 12:43 Freq: Status: Active Protocol: Activity Type Activity Date Activity User E-Sign Co-Sign Detail Recorded Client Recorded Date Recorded By Document 04/05/18 13:17 [id number] 04/05/18 13:28 CS 04/05/18 13:17 Wound Center Nurse 2 [Procedure/Treatment] #3 Medial LLE -Time 13:19 -Correct Patient Yes -Correct Side, Site, Position Yes -Correct Procedure Yes -Procedure Performed Yes -Type of Procedure Debridement -Clinical Debridement Subcutaneous -Post Debridement Size (cm) - Length 10.5 -Post Debridement Size (cm) - Width 9.0 -Post Debridement Size (cm) - Depth 0.2 -Total Square Cm 94.50 -Wound/Ulcer Outcome Not Healed -Ulcer Cleansing Not Cleansed -Foul Odor after Cleansing No -Bioengineered Tissue No -Bleeding Controlled with Pressure -Treatment Response Procedure Tolerated Well #4 Lateral LLE -Time 13:19 -Correct Patient Yes -Correct Side, Site, Position Yes -Correct Procedure Yes -Procedure Performed Yes -Type of Procedure Debridement -Clinical Debridement Subcutaneous -Post Debridement Size (cm) - Length 13.3 -Post Debridement Size (cm) - Width 10.9 -Post Debridement Size (cm) - Depth 0.2 -Total Square Cm 144.97 -Wound/Ulcer Outcome Not Healed -Ulcer Cleansing Not Cleansed -Bioengineered Tissue No -Bleeding Controlled with Pressure -Treatment Response Procedure Tolerated Well [See Physician Procedure note for Specifics] Pain Scale: 0-10 Numeric [Pain] -Is Patient Pain Free? Yes Musculoskeletal: No Muscle Wasting Neurological: Cranial nerves II-XII grossly intact, Neuro grossly intact Psych/Mental Status: Normal Affect, Appropriate, Alert and oriented to time, place, person, mood and affect Debridement Note Post-Debridement Measurements/Treatment WC - Nurse 2 - General Ulcer CM Notes Start: 04/05/18 12:43 Freq: Status: Active Protocol: Activity Type Activity Date Activity User E-Sign Co-Sign Detail Recorded Client Recorded Date Recorded By Document 04/05/18 13:17 [id number] 04/05/18 13:28 04/05/18 13:17 Wound Center Nurse 2 #3 Medial LLE -Time 13:19 -Correct Patient Yes -Correct Side, Site, Position Yes -Correct Procedure Yes -Procedure Performed Yes -Type of Procedure Debridement -Clinical Debridement Subcutaneous -Post Debridement Size (cm) - Length 10.5 -Post Debridement Size (cm) - Width 9.0 -Post Debridement Size (cm) - Depth 0.2 -Total Square Cm 94.50 -Wound/Ulcer Outcome Not Healed -Ulcer Cleansing Not Cleansed -Foul Odor after Cleansing No -Bioengineered Tissue No -Bleeding Controlled with Pressure -Treatment Response Procedure Tolerated Well #4 Lateral LLE -Time 13:19 -Correct Patient Yes -Correct Side, Site, Position Yes -Correct Procedure Yes -Procedure Performed Yes -Type of Procedure Debridement -Clinical Debridement Subcutaneous -Post Debridement Size (cm) - Length 13.3 -Post Debridement Size (cm) - Width 10.9 -Post Debridement Size (cm) - Depth 0.2 -Total Square Cm 144.97 -Wound/Ulcer Outcome Not Healed -Ulcer Cleansing Not Cleansed -Bioengineered Tissue No -Bleeding Controlled with Pressure -Treatment Response Procedure Tolerated Well Pain Scale: 0-10 Numeric Is Patient Pain Free? Yes Laterality: Left - Calf Type of Debridement: Excisional debridement Anesthesia Used: 4% Lidocaine Solution Depth: Down to and including healthy tissue, in the subcutaneous layer Percentage of wound debrided: 100 Instrument Used: 5mm curette Severity: Fat Layer Exposed Amount of bleeding with debridement: Mild Bleeding Controlled with: Compression and gauze Patient tolerated procedure well Assessment/Plan Active Problems Chronic venous hypertension with inflammation involving left side (Chronic) Left leg swelling (Chronic) Varicose veins with ulcer and inflammation (Chronic) Leg edema, left (Chronic) History of DVT (deep vein thrombosis) (Chronic) left lower ext Chronic venous insufficiency (Chronic) Lymphedema of left leg (Chronic) 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 She has a large irregular ulceration on the left lower extremity which is related to her venous disease. The patient has demonstrated slow but progressive improvement. The base of the ulceration appears generally pink and healthy, with a moderate amount of biofilm and bioburden. We are to continue leg elevation, avoidance of idle standing and sitting, compression by means of SurePress, active lifestyle, weight control measures,etc. She is to continue to take a well-balanced, nutritious diet. We are to continue with the use of Silvadene topically. This will be applied topically on a daily basis. Plan: As above. The patient will return in 2 weeks for reevaluation. We are to continue Silvadene topically. Her continuing improvement suggests that present measures are appropriate and providing the desired results. Current measures include leg elevation, avoidance of idle standing and sitting, activity as tolerated, weight control, and compression by means of SurePress, applied by the patient on a daily basis. She is to continue with the use of XtraSorb for moisture control. The ulceration continues to be exudative, and the patient has been encouraged to enhance the amount of time spent elevating her lower extremity, to help minimize the drainage. Patient is also to continue the use of Vasculera orally on a daily basis, which appears to have made significant improvement. Nutritional optimization has been recommended. Patient will return in 2 weeks for reassessment. Patient weight is 160 pounds. Patient is 5 feet 9 inches tall. BMI is 23.6. We have discussed weight loss issues, the patient does not require counseling, as her BMI is reasonable. The patient is not a smoker. Influenza vaccine was not administered.
== END 2018-04-10 23:59 ==
LOC: WC 12:26
PROVIDERS: Visit Provider Surgery
DX: I83.222 Varicose veins of left lower extremity with both ulcer of calf and inflammation (principal); L97.222 Non-pressure chronic ulcer of left calf with fat layer exposed; R60.0 Localized edema; I89.0 Lymphedema, not elsewhere classified; M79.89 Other specified soft tissue disorders; Z86.718 Personal history of other venous thrombosis and embolism; Z79.899 Other long term (current) drug therapy; Z79.02 Long term (current) use of antithrombotics/antiplatelets; Z79.82 Long term (current) use of aspirin; Z79.52 Long term (current) use of systemic steroids
CPT/HCPCS: 11042; 11045; 99213; G0463

== ENCOUNTER 2018-05-10 12:30 | Outpatient (RCR) | payer MEDICARE, BC, SELFPAY ==
[2018-04-11 00:31] VITALS: BP 143/71; PULSE 71; RESP 16; TEMP 36.6
[2018-04-19 12:41] VITALS: BP 127/72; PULSE 76; RESP 16; TEMP 36.6
--- NOTE | 2018-04-19 13:30 | PCM.WC.HP ---
(1) Chronic venous hypertension with inflammation involving left side Status: Chronic Current Visit: Yes Code(s): I87.322 - Chronic venous hypertension (idiopathic) with inflammation of left lower extremity (2) Left leg swelling Status: Chronic Current Visit: Yes Code(s): M79.89 - Other specified soft tissue disorders (3) Varicose veins with ulcer and inflammation Status: Chronic Current Visit: Yes Code(s): I83.209 - Varicose veins of unspecified lower extremity with both ulcer of unspecified site and inflammation; L97.909 - Non-pressure chronic ulcer of unspecified part of unspecified lower leg with unspecified severity (4) Leg edema, left Status: Chronic Current Visit: Yes Code(s): R60.0 - Localized edema (5) May-Thurner syndrome Status: Resolved Current Visit: No Code(s): I87.1 - Compression of vein (6) History of DVT (deep vein thrombosis) Status: Chronic Current Visit: No Code(s): Z86.718 - Personal history of other venous thrombosis and embolism Comment: left lower ext (7) dermatomycosis leg Status: Resolved Current Visit: No (8) Cellulitis, leg Status: Resolved Current Visit: No Qualifiers: Code(s): L03.119 - Cellulitis of unspecified part of limb (9) Erythema of skin Status: Resolved Current Visit: No Code(s): L53.9 - Erythematous condition, unspecified (10) Cellulitis of leg Status: Resolved Current Visit: No Qualifiers: Code(s): L03.119 - Cellulitis of unspecified part of limb (11) Cellulitis Status: Resolved Current Visit: No Code(s): L03.90 - Cellulitis, unspecified (12) Chronic venous insufficiency Status: Chronic Current Visit: Yes (13) Lymphedema of left leg Status: Chronic Current Visit: Yes Code(s): I89.0 - Lymphedema, not elsewhere classified (14) 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 Status: Chronic Current Visit: Yes Code(s): I87.039 - Postthrombotic syndrome with ulcer and inflammation of unspecified lower extremity (15) Calf ulcer Status: Chronic Current Visit: Yes Qualifiers: Laterality: left Code(s): L97.209 - Non-pressure chronic ulcer of unspecified calf with unspecified severity (16) chronic left lower ext wound Status: Chronic Current Visit: Yes History of Present Illness Date of Service: 04/19/18 Chief Complaint: Chronic venous insufficiency, chronic venous hypertension with inflammation and ulceration, varicose veins with inflammation and ulceration, post phlebitic syndrome with inflammation and ulceration,leg swelling, leg edema, lymphedema, venous stasis ulceration-left lower extremity History of Wound: This is a 78-year-old white female with a long-standing history of chronic venous disease and swelling in her left lower extremity. This has been present for many years. She has a large ulceration located between her left knee and ankle, which is quite large and irregular in shape, and also highly exudative. 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 She has also previously undergone successful endovenous laser ablation of the left great and small saphenous veins. Healing of the patient's left lower extremity ulceration has been slow, but progressive. A number of healing measures have been implemented in the past, without success. The patient is pleased with her current progress. We are currently using Silvadene topically and Xtrasorb for absorption of exudate. The patient's left calf ulceration continues to improve. It is smaller in size, with increasing areas of epithelialization, and diminishing dimensions of her left lower extremity ulceration. 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 (Chronic) chronic left lower ext wound (Chronic) Surgical History: appendectomy, hysterectomy Allergies/Adverse Reactions: Allergies Latex, Natural Rubber Allergy (Verified 07/12/13 11:34) Rash Sulfa (Sulfonamide Antibiotics) Allergy (Verified 07/12/13 11:34) Hives trimethoprim Allergy (Verified 07/12/13 11:34) Hives Home Medications: Ambulatory Orders Medication Instructions Recorded Aspirin [Aspirin, Baby] 81 mg PO DAILY@0800 07/12/13 Calcium Carb/Vitamin D [Os-Mo 1 tablet PO DAILY@0800 07/12/13 500MG + D] Clopidogrel Bisulfate [Plavix] 75 mg PO DAILY 07/12/13 Doxepin HCl [Sinequan] 100 mg PO BID 07/12/13 Doxycycline Monohydrate [Monodox] 100 mg PO BID 07/12/13 [place]-3 Fatty Acids/Fish Oil [Fish 1 each PO DAILY 07/12/13 Oil 1,000 mg Softgel] Vitamin B12 500 mg PO DAILY 07/12/13 Vitamin C 500 mg PO DAILY 07/12/13 proMETHazine soln (6.25mg/5mL) 5 ml PO Q4H PRN PRN 07/12/13 [Phenergan Plain] Prednisone [PredniSONE] 200 mg PO DAILY 07/03/14 Valacyclovir HCl [Valacyclovir] 500 mg PO DAILY 07/03/14 Smoking Status: Never smoker Tobacco Use: Non-smoker Review of Systems Constitutional: Denies: Chills, Fever, Weight Change Eyes: Denies: Pain, Vision Change HEENT: Denies: Difficulty Hearing, Difficulty Swallowing, Sinus Congestion Cardiovascular: Denies: Chest Pain, Palpitations Respiratory: Denies: Cough, Shortness of Breath Gastrointestinal: Denies: Diarrhea, Nausea, Vomiting Genitourinary: Denies: Dysuria, Hematuria Endocrine: Denies: Heat/ Cold Intolerance, Polydipsia, Polyuria Hematologic/ Lymphatic: Denies: Easy Bruising, Easy Bleeding - Physical Exam Vital Signs Temp Pulse Resp BP 98 F 76 16 127/72 H 04/19/18 12:41 04/19/18 12:41 04/19/18 12:41 04/19/18 12:41 General: Alert, Oriented x3, Cooperative, No apparent distress, Well developed, Well nourished HEENT: Atraumatic, PERRLA, EOMI, Normocephalic Oral: Moist Mucosa Neck: No JVD Lungs: Normal air movement Abdomen: Non-Distended Extremities: No clubbing, No cyanosis, No Calf Tenderness, - - Moderate swelling and edema persist in the left lower extremity. This is noted particularly on the dorsum of the left foot. The ulceration of the left calf is relatively unchanged. Irregular in shape, with multiple skin bridges and areas of epithelialization. The base of the ulceration is generally pink, with a moderate amount of bioburden and nonviable tissue. Dimensions are documented elsewhere. There is no sign of infection or cellulitis. Skin: No rashes Wound Measurements and Assessment WC - Nurse 1 - General Ulcer Measurement Start: 04/19/18 12:39 Freq: Status: Active Protocol: Activity Type Activity Date Activity User E-Sign Co-Sign Detail Recorded Client Recorded Date Recorded By Document 04/19/18 12:41 [facility] [id number] 04/19/18 12:51 [facility] 04/19/18 12:41 Wound Center Nurse 1 [Ulcer Assessment] #3 Medial LLE -Combined with other wound No -Current Size (cm) - Length 10.2 -Current Size (cm) - Width 9.4 -Current Size (cm) - Depth 0.2 -Total Square Cm 95.88 -Photo Taken No -Epithelialization None Present -Tunneling No -Undermining/Tunneling No -Circular Undermining No -Exudate Amt Large (67-100%) -Exudate Type Serosanguineous -Wound Margin Distinct, Outline Attached -Granulation Amt Small (1-33%) -Granulation Quality Red -Slough/Fibrin Yes -Necrosis Amt Large (67-100%) -Necrotic Tissue Type Adherent Slough -Structure Exposed N/A -Texture (Nahomy-wound Skin Appearance) Scarring -Moisture (Nahomy-wound Skin Appearance Dry/Scaly ) -Color (Nahomy-wound Skin Appearance) Erythema Hemosiderin Staining -Temperature (Nahomy-wound Skin No Abnormality Appearance) (Pt Warm) -Tenderness on Palpation (Nahomy-wound No Skin Appearance) -Ulcer Cleansing Wound Cleanser -Foul Odor after Cleansing No -Anesthetic Used 5% Lidocaine Gel #4 Lateral LLE -Combined with other wound No -Current Size (cm) - Length 13.2 -Current Size (cm) - Width 14 -Current Size (cm) - Depth 0.2 -Total Square Cm 184.8 -Photo Taken No -Epithelialization None Present -Tunneling No -Undermining/Tunneling No -Circular Undermining No -Exudate Amt Large (67-100%) -Exudate Type Serosanguineous -Wound Margin Distinct, Outline Attached -Granulation Amt Small (1-33%) -Granulation Quality Red -Slough/Fibrin No -Necrosis Amt Large (67-100%) -Necrotic Tissue Type Adherent Slough -Structure Exposed N/A -Texture (Nahomy-wound Skin Appearance) Scarring -Color (Nahmoy-wound Skin Appearance) Erythema Hemosiderin Staining -Temperature (Nahomy-wound Skin No Abnormality Appearance) (Pt Warm) -Tenderness on Palpation (Nahomy-wound No Skin Appearance) -Ulcer Cleansing Wound Cleanser -Foul Odor after Cleansing No -Anesthetic Used 5% Lidocaine Gel [Edema Assessment] -Lower Limb Edema Present Yes -Left Calf (cm) 37.2 -Left Ankle (cm) 24 WC - Nurse 2 - General Ulcer CM Notes Start: 04/19/18 12:39 Freq: Status: Active Protocol: Activity Type Activity Date Activity User E-Sign Co-Sign Detail Recorded Client Recorded Date Recorded By Document 04/19/18 13:12 CARLOS [id number] 04/19/18 13:20 CARLOS 04/19/18 13:12 Wound Center Nurse 2 [Procedure/Treatment] #3 Medial LLE -Time 13:12 -Correct Patient Yes -Correct Side, Site, Position Yes -Correct Procedure Yes -Procedure Performed Yes -Type of Procedure Debridement -Clinical Debridement Subcutaneous -Post Debridement Size (cm) - Length 10.3 -Post Debridement Size (cm) - Width 9.5 -Post Debridement Size (cm) - Depth 0.2 -Total Square Cm 97.85 -Wound/Ulcer Outcome Not Healed -Ulcer Cleansing Rinsed/ Irrigated with Saline -Foul Odor after Cleansing No -Bioengineered Tissue No -Bleeding Controlled with NA -Treatment Response Procedure Tolerated Well #4 Lateral LLE -Time 13:12 -Correct Patient Yes -Correct Side, Site, Position Yes -Correct Procedure Yes -Procedure Performed Yes -Type of Procedure Debridement -Clinical Debridement Subcutaneous -Post Debridement Size (cm) - Length 13.3 -Post Debridement Size (cm) - Width 14.1 -Post Debridement Size (cm) - Depth 0.2 -Total Square Cm 187.53 -Wound/Ulcer Outcome Not Healed -Ulcer Cleansing Rinsed/ Irrigated with Saline -Foul Odor after Cleansing No -Bioengineered Tissue No -Bleeding Controlled with NA -Treatment Response Procedure Tolerated Well [See Physician Procedure note for Specifics] Musculoskeletal: No Muscle Wasting Neurological: Cranial nerves II-XII grossly intact, Neuro grossly intact Psych/Mental Status: Normal Affect, Appropriate, Alert and oriented to time, place, person, mood and affect Debridement Note Post-Debridement Measurements/Treatment WC - Nurse 2 - General Ulcer CM Notes Start: 04/19/18 12:39 Freq: Status: Active Protocol: Activity Type Activity Date Activity User E-Sign Co-Sign Detail Recorded Client Recorded Date Recorded By Document 04/19/18 13:12 CARLOS [id number] 04/19/18 13:20 CARLOS 04/19/18 13:12 Wound Center Nurse 2 #3 Medial LLE -Time 13:12 -Correct Patient Yes -Correct Side, Site, Position Yes -Correct Procedure Yes -Procedure Performed Yes -Type of Procedure Debridement -Clinical Debridement Subcutaneous -Post Debridement Size (cm) - Length 10.3 -Post Debridement Size (cm) - Width 9.5 -Post Debridement Size (cm) - Depth 0.2 -Total Square Cm 97.85 -Wound/Ulcer Outcome Not Healed -Ulcer Cleansing Rinsed/ Irrigated with Saline -Foul Odor after Cleansing No -Bioengineered Tissue No -Bleeding Controlled with NA -Treatment Response Procedure Tolerated Well #4 Lateral LLE -Time 13:12 -Correct Patient Yes -Correct Side, Site, Position Yes -Correct Procedure Yes -Procedure Performed Yes -Type of Procedure Debridement -Clinical Debridement Subcutaneous -Post Debridement Size (cm) - Length 13.3 -Post Debridement Size (cm) - Width 14.1 -Post Debridement Size (cm) - Depth 0.2 -Total Square Cm 187.53 -Wound/Ulcer Outcome Not Healed -Ulcer Cleansing Rinsed/ Irrigated with Saline -Foul Odor after Cleansing No -Bioengineered Tissue No -Bleeding Controlled with NA -Treatment Response Procedure Tolerated Well Laterality: Left - Calf Type of Debridement: Excisional debridement Anesthesia Used: 4% Lidocaine Solution Depth: Down to and including healthy tissue, in the subcutaneous layer Percentage of wound debrided: 100 Instrument Used: 5mm curette Severity: Fat Layer Exposed Amount of bleeding with debridement: Mild Bleeding Controlled with: Compression and gauze Patient tolerated procedure well Assessment/Plan Active Problems Chronic venous hypertension with inflammation involving left side (Chronic) Left leg swelling (Chronic) Varicose veins with ulcer and inflammation (Chronic) Leg edema, left (Chronic) Chronic venous insufficiency (Chronic) Lymphedema of left leg (Chronic) 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 She has a large irregular ulceration on the left lower extremity which is related to her venous disease. The patient has demonstrated slow but progressive improvement. The base of the ulceration appears generally pink and healthy, with a moderate amount of biofilm and bioburden. We are to continue leg elevation, avoidance of idle standing and sitting, compression by means of SurePress, active lifestyle, weight control measures,etc. She is to continue to take a well-balanced, nutritious diet. We are to continue with the use of Silvadene topically. This will be applied topically on a daily basis. Plan: As above. The patient will return in 2 weeks for reevaluation. We are to continue Silvadene topically. Her continuing improvement suggests that present measures are appropriate and providing the desired results. Current measures include leg elevation, avoidance of idle standing and sitting, activity as tolerated, weight control, and compression by means of SurePress, applied by the patient on a daily basis. She is to continue with the use of XtraSorb for moisture control. The ulceration continues to be exudative, and the patient has been encouraged to enhance the amount of time spent elevating her lower extremity, to help minimize the drainage. Patient is also to continue the use of Vasculera orally on a daily basis, which appears to have made significant improvement. Nutritional optimization has been recommended. Patient will return in 3 weeks for reassessment. Patient weight is 160 pounds. Patient is 5 feet 9 inches tall. BMI is 23.6. We have discussed weight loss issues, the patient does not require counseling, as her BMI is reasonable. The patient is not a smoker. Influenza vaccine was not administered.
--- NOTE | 2018-04-19 13:35 | HP.PCM_ITS ---
(1) Chronic venous hypertension with inflammation involving left side Status: Chronic Current Visit: Yes Code(s): I87.322 - Chronic venous hypertension (idiopathic) with inflammation of left lower extremity (2) Left leg swelling Status: Chronic Current Visit: Yes Code(s): M79.89 - Other specified soft tissue disorders (3) Varicose veins with ulcer and inflammation Status: Chronic Current Visit: Yes Code(s): I83.209 - Varicose veins of unspecified lower extremity with both ulcer of unspecified site and inflammation ; L97.909 - Non-pressure chronic ulcer of unspecified part of unspecified lower leg with unspecified severity (4) Leg edema, left Status: Chronic Current Visit: Yes Code(s): R60.0 - Localized edema (5) May-Thurner syndrome Status: Resolved Current Visit: No Code(s): I87.1 - Compression of vein (6) History of DVT (deep vein thrombosis) Status: Chronic Current Visit: No Code(s): Z86.718 - Personal history of other venous thrombosis and embolism Comment: left lower ext (7) dermatomycosis leg Status: Resolved Current Visit: No (8) Cellulitis, leg Status: Resolved Current Visit: No Qualifiers: Code(s): L03.119 - Cellulitis of unspecified part of limb (9) Erythema of skin Status: Resolved Current Visit: No Code(s): L53.9 - Erythematous condition, unspecified (10) Cellulitis of leg Status: Resolved Current Visit: No Qualifiers: Code(s): L03.119 - Cellulitis of unspecified part of limb (11) Cellulitis Status: Resolved Current Visit: No Code(s): L03.90 - Cellulitis, unspecified (12) Chronic venous insufficiency Status: Chronic Current Visit: Yes (13) Lymphedema of left leg Status: Chronic Current Visit: Yes Code(s): I89.0 - Lymphedema, not elsewhere classified (14) 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 Status: Chronic Current Visit: Yes Code(s): I87.039 - Postthrombotic syndrome with ulcer and inflammation of unspecified lower extremity (15) Calf ulcer Status: Chronic Current Visit: Yes Qualifiers: Laterality: left Code(s): L97.209 - Non-pressure chronic ulcer of unspecified calf with unspecified severity (16) chronic left lower ext wound Status: Chronic Current Visit: Yes History of Present Illness Date of Service: 04/19/18 Chief Complaint: Chronic venous insufficiency, chronic venous hypertension with inflammation and ulceration, varicose veins with inflammation and ulceration, post phlebitic syndrome with inflammation and ulceration,leg swelling, leg edema , lymphedema, venous stasis ulceration-left lower extremity History of Wound: This is a 78-year-old white female with a long-standing history of chronic venous disease and swelling in her left lower extremity. This has been present for many years. She has a large ulceration located between her left knee and ankle, which is quite large and irregular in shape, and also highly exudative. 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 She has also previously undergone successful endovenous laser ablation of the left great and small saphenous veins. Healing of the patient's left lower extremity ulceration has been slow, but progressive. A number of healing measures have been implemented in the past , without success. The patient is pleased with her current progress. We are currently using Silvadene topically and Xtrasorb for absorption of exudate. The patient's left calf ulceration continues to improve. It is smaller in size , with increasing areas of epithelialization, and diminishing dimensions of her left lower extremity ulceration. 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 (Chronic) chronic left lower ext wound (Chronic) Surgical History: appendectomy, hysterectomy Allergies/Adverse Reactions: Allergies Latex, Natural Rubber Allergy (Verified 07/12/13 11:34) Rash Sulfa (Sulfonamide Antibiotics) Allergy (Verified 07/12/13 11:34) Hives trimethoprim Allergy (Verified 07/12/13 11:34) Hives Home Medications: Ambulatory Orders Medication Instructions Recorded Aspirin [Aspirin, Baby] 81 mg PO DAILY@0800 07/12/13 Calcium Carb/Vitamin D [Os-Mo 1 tablet PO DAILY@0800 07/12/13 500MG + D] Clopidogrel Bisulfate [Plavix] 75 mg PO DAILY 07/12/13 Doxepin HCl [Sinequan] 100 mg PO BID 07/12/13 Doxycycline Monohydrate [Monodox] 100 mg PO BID 07/12/13 Manor-3 Fatty Acids/Fish Oil [Fish 1 each PO DAILY 07/12/13 Oil 1,000 mg Softgel] Vitamin B12 500 mg PO DAILY 07/12/13 Vitamin C 500 mg PO DAILY 07/12/13 proMETHazine soln (6.25mg/5mL) 5 ml PO Q4H PRN PRN 07/12/13 [Phenergan Plain] Prednisone [PredniSONE] 200 mg PO DAILY 07/03/14 Valacyclovir HCl [Valacyclovir] 500 mg PO DAILY 07/03/14 Smoking Status: Never smoker Tobacco Use: Non-smoker Review of Systems Constitutional: Denies: Chills, Fever, Weight Change Eyes: Denies: Pain, Vision Change HEENT: Denies: Difficulty Hearing, Difficulty Swallowing, Sinus Congestion Cardiovascular: Denies: Chest Pain, Palpitations Respiratory: Denies: Cough, Shortness of Breath Gastrointestinal: Denies: Diarrhea, Nausea, Vomiting Genitourinary: Denies: Dysuria, Hematuria Endocrine: Denies: Heat/ Cold Intolerance, Polydipsia, Polyuria Hematologic/ Lymphatic: Denies: Easy Bruising, Easy Bleeding - Physical Exam Vital Signs Temp Pulse Resp BP 98 F 76 16 127/72 H 04/19/18 12:41 04/19/18 12:41 04/19/18 12:41 04/19/18 12:41 General: Alert, Oriented x3, Cooperative, No apparent distress, Well developed, Well nourished HEENT: Atraumatic, PERRLA, EOMI, Normocephalic Oral: Moist Mucosa Neck: No JVD Lungs: Normal air movement Abdomen: Non-Distended Extremities: No clubbing, No cyanosis, No Calf Tenderness, - - Moderate swelling and edema persist in the left lower extremity. This is noted particularly on the dorsum of the left foot. The ulceration of the left calf is relatively unchanged. Irregular in shape, with multiple skin bridges and areas of epithelialization. The base of the ulceration is generally pink, with a moderate amount of bioburden and nonviable tissue. Dimensions are documented elsewhere. There is no sign of infection or cellulitis. Skin: No rashes Wound Measurements and Assessment WC - Nurse 1 - General Ulcer Measurement Start: 04/19/18 12:39 Freq: Status: Active Protocol: Activity Type Activity Date Activity User E-Sign Co-Sign Detail Recorded Client Recorded Date Recorded By Document 04/19/18 12:41 [facility] [id number] 04/19/18 12:51 [facility] 04/19/18 12:41 Wound Center Nurse 1 [Ulcer Assessment] #3 Medial LLE -Combined with other wound No -Current Size (cm) - Length 10.2 -Current Size (cm) - Width 9.4 -Current Size (cm) - Depth 0.2 -Total Square Cm 95.88 -Photo Taken No -Epithelialization None Present -Tunneling No -Undermining/Tunneling No -Circular Undermining No -Exudate Amt Large (67-100%) -Exudate Type Serosanguineous -Wound Margin Distinct, Outline Attached -Granulation Amt Small (1-33%) -Granulation Quality Red -Slough/Fibrin Yes -Necrosis Amt Large (67-100%) -Necrotic Tissue Type Adherent Slough -Structure Exposed N/A -Texture (Nahomy-wound Skin Appearance) Scarring -Moisture (Nahomy-wound Skin Appearance Dry/Scaly ) -Color (Nahomy-wound Skin Appearance) Erythema Hemosiderin Staining -Temperature (Nahomy-wound Skin No Abnormality Appearance) (Pt Warm) -Tenderness on Palpation (Nahomy-wound No Skin Appearance) -Ulcer Cleansing Wound Cleanser -Foul Odor after Cleansing No -Anesthetic Used 5% Lidocaine Gel #4 Lateral LLE -Combined with other wound No -Current Size (cm) - Length 13.2 -Current Size (cm) - Width 14 -Current Size (cm) - Depth 0.2 -Total Square Cm 184.8 -Photo Taken No -Epithelialization None Present -Tunneling No -Undermining/Tunneling No -Circular Undermining No -Exudate Amt Large (67-100%) -Exudate Type Serosanguineous -Wound Margin Distinct, Outline Attached -Granulation Amt Small (1-33%) -Granulation Quality Red -Slough/Fibrin No -Necrosis Amt Large (67-100%) -Necrotic Tissue Type Adherent Slough -Structure Exposed N/A -Texture (Nahomy-wound Skin Appearance) Scarring -Color (Nhaomy-wound Skin Appearance) Erythema Hemosiderin Staining -Temperature (Nahomy-wound Skin No Abnormality Appearance) (Pt Warm) -Tenderness on Palpation (Nahomy-wound No Skin Appearance) -Ulcer Cleansing Wound Cleanser -Foul Odor after Cleansing No -Anesthetic Used 5% Lidocaine Gel [Edema Assessment] -Lower Limb Edema Present Yes -Left Calf (cm) 37.2 -Left Ankle (cm) 24 WC - Nurse 2 - General Ulcer CM Notes Start: 04/19/18 12:39 Freq: Status: Active Protocol: Activity Type Activity Date Activity User E-Sign Co-Sign Detail Recorded Client Recorded Date Recorded By Document 04/19/18 13:12 [facility] [id number] 04/19/18 13:20 [facility] 04/19/18 13:12 Wound Center Nurse 2 [Procedure/Treatment] #3 Medial LLE -Time 13:12 -Correct Patient Yes -Correct Side, Site, Position Yes -Correct Procedure Yes -Procedure Performed Yes -Type of Procedure Debridement -Clinical Debridement Subcutaneous -Post Debridement Size (cm) - Length 10.3 -Post Debridement Size (cm) - Width 9.5 -Post Debridement Size (cm) - Depth 0.2 -Total Square Cm 97.85 -Wound/Ulcer Outcome Not Healed -Ulcer Cleansing Rinsed/ Irrigated with Saline -Foul Odor after Cleansing No -Bioengineered Tissue No -Bleeding Controlled with NA -Treatment Response Procedure Tolerated Well #4 Lateral LLE -Time 13:12 -Correct Patient Yes -Correct Side, Site, Position Yes -Correct Procedure Yes -Procedure Performed Yes -Type of Procedure Debridement -Clinical Debridement Subcutaneous -Post Debridement Size (cm) - Length 13.3 -Post Debridement Size (cm) - Width 14.1 -Post Debridement Size (cm) - Depth 0.2 -Total Square Cm 187.53 -Wound/Ulcer Outcome Not Healed -Ulcer Cleansing Rinsed/ Irrigated with Saline -Foul Odor after Cleansing No -Bioengineered Tissue No -Bleeding Controlled with NA -Treatment Response Procedure Tolerated Well [See Physician Procedure note for Specifics] Musculoskeletal: No Muscle Wasting Neurological: Cranial nerves II-XII grossly intact, Neuro grossly intact Psych/Mental Status: Normal Affect, Appropriate, Alert and oriented to time, place, person, mood and affect Debridement Note Post-Debridement Measurements/Treatment WC - Nurse 2 - General Ulcer CM Notes Start: 04/19/18 12:39 Freq: Status: Active Protocol: Activity Type Activity Date Activity User E-Sign Co-Sign Detail Recorded Client Recorded Date Recorded By Document 04/19/18 13:12 [facility] [id number] 04/19/18 13:20 [facility] 04/19/18 13:12 Wound Center Nurse 2 #3 Medial LLE -Time 13:12 -Correct Patient Yes -Correct Side, Site, Position Yes -Correct Procedure Yes -Procedure Performed Yes -Type of Procedure Debridement -Clinical Debridement Subcutaneous -Post Debridement Size (cm) - Length 10.3 -Post Debridement Size (cm) - Width 9.5 -Post Debridement Size (cm) - Depth 0.2 -Total Square Cm 97.85 -Wound/Ulcer Outcome Not Healed -Ulcer Cleansing Rinsed/ Irrigated with Saline -Foul Odor after Cleansing No -Bioengineered Tissue No -Bleeding Controlled with NA -Treatment Response Procedure Tolerated Well #4 Lateral LLE -Time 13:12 -Correct Patient Yes -Correct Side, Site, Position Yes -Correct Procedure Yes -Procedure Performed Yes -Type of Procedure Debridement -Clinical Debridement Subcutaneous -Post Debridement Size (cm) - Length 13.3 -Post Debridement Size (cm) - Width 14.1 -Post Debridement Size (cm) - Depth 0.2 -Total Square Cm 187.53 -Wound/Ulcer Outcome Not Healed -Ulcer Cleansing Rinsed/ Irrigated with Saline -Foul Odor after Cleansing No -Bioengineered Tissue No -Bleeding Controlled with NA -Treatment Response Procedure Tolerated Well Laterality: Left - Calf Type of Debridement: Excisional debridement Anesthesia Used: 4% Lidocaine Solution Depth: Down to and including healthy tissue, in the subcutaneous layer Percentage of wound debrided: 100 Instrument Used: 5mm curette Severity: Fat Layer Exposed Amount of bleeding with debridement: Mild Bleeding Controlled with: Compression and gauze Patient tolerated procedure well Assessment/Plan Active Problems Chronic venous hypertension with inflammation involving left side (Chronic) Left leg swelling (Chronic) Varicose veins with ulcer and inflammation (Chronic) Leg edema, left (Chronic) Chronic venous insufficiency (Chronic) Lymphedema of left leg (Chronic) 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 She has a large irregular ulceration on the left lower extremity which is related to her venous disease. The patient has demonstrated slow but progressive improvement. The base of the ulceration appears generally pink and healthy, with a moderate amount of biofilm and bioburden. We are to continue leg elevation, avoidance of idle standing and sitting, compression by means of SurePress, active lifestyle, weight control measures,etc. She is to continue to take a well-balanced, nutritious diet. We are to continue with the use of Silvadene topically. This will be applied topically on a daily basis. Plan: As above. The patient will return in 2 weeks for reevaluation. We are to continue Silvadene topically. Her continuing improvement suggests that present measures are appropriate and providing the desired results. Current measures include leg elevation, avoidance of idle standing and sitting, activity as tolerated, weight control, and compression by means of SurePress, applied by the patient on a daily basis. She is to continue with the use of XtraSorb for moisture control. The ulceration continues to be exudative, and the patient has been encouraged to enhance the amount of time spent elevating her lower extremity, to help minimize the drainage. Patient is also to continue the use of Vasculera orally on a daily basis, which appears to have made significant improvement. Nutritional optimization has been recommended. Patient will return in 3 weeks for reassessment. Patient weight is 160 pounds. Patient is 5 feet 9 inches tall. BMI is 23.6. We have discussed weight loss issues, the patient does not require counseling, as her BMI is reasonable. The patient is not a smoker. Influenza vaccine was not administered.
[2018-05-10 12:24] VITALS: BP 150/71; PULSE 82; RESP 16; TEMP 37.6
--- NOTE | 2018-05-10 13:06 | PCM.WC.HP ---
(1) Chronic venous hypertension with inflammation involving left side Status: Chronic Current Visit: Yes Code(s): I87.322 - Chronic venous hypertension (idiopathic) with inflammation of left lower extremity (2) Left leg swelling Status: Chronic Current Visit: Yes Code(s): M79.89 - Other specified soft tissue disorders (3) Varicose veins with ulcer and inflammation Status: Chronic Current Visit: Yes Code(s): I83.209 - Varicose veins of unspecified lower extremity with both ulcer of unspecified site and inflammation; L97.909 - Non-pressure chronic ulcer of unspecified part of unspecified lower leg with unspecified severity (4) Leg edema, left Status: Chronic Current Visit: Yes Code(s): R60.0 - Localized edema (5) History of DVT (deep vein thrombosis) Status: Chronic Current Visit: No Code(s): Z86.718 - Personal history of other venous thrombosis and embolism Comment: left lower ext (6) Chronic venous insufficiency Status: Chronic Current Visit: Yes (7) Lymphedema of left leg Status: Chronic Current Visit: Yes Code(s): I89.0 - Lymphedema, not elsewhere classified (8) 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 Status: Chronic Current Visit: Yes Code(s): I87.039 - Postthrombotic syndrome with ulcer and inflammation of unspecified lower extremity (9) Calf ulcer Status: Chronic Current Visit: Yes Qualifiers: Laterality: left Code(s): L97.209 - Non-pressure chronic ulcer of unspecified calf with unspecified severity (10) chronic left lower ext wound Status: Chronic Current Visit: Yes History of Present Illness Date of Service: 05/10/18 Chief Complaint: Chronic venous insufficiency, chronic venous hypertension with inflammation and ulceration, varicose veins with inflammation and ulceration, post phlebitic syndrome with inflammation and ulceration,leg swelling, leg edema, lymphedema, venous stasis ulceration-left lower extremity History of Wound: This is a 78-year-old white female with a long-standing history of chronic venous disease and swelling in her left lower extremity. This has been present for many years. She has a large ulceration located between her left knee and ankle, which is quite large and irregular in shape, and also highly exudative. 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 She has also previously undergone successful endovenous laser ablation of the left great and small saphenous veins. Healing of the patient's left lower extremity ulceration has been slow, but progressive. A number of healing measures have been implemented in the past, without success. The patient is pleased with her current progress. We are currently using Silvadene topically and Xtrasorb for absorption of exudate. The patient's left calf ulceration continues to improve. It is smaller in size, with increasing areas of epithelialization, and diminishing dimensions of her left lower extremity ulceration. 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 (Chronic) chronic left lower ext wound (Chronic) Surgical History: appendectomy, hysterectomy Allergies/Adverse Reactions: Allergies Latex, Natural Rubber Allergy (Verified 07/12/13 11:34) Rash Sulfa (Sulfonamide Antibiotics) Allergy (Verified 07/12/13 11:34) Hives trimethoprim Allergy (Verified 07/12/13 11:34) Hives Home Medications: Ambulatory Orders Medication Instructions Recorded Aspirin [Aspirin, Baby] 81 mg PO DAILY@0800 07/12/13 Calcium Carb/Vitamin D [Os-Mo 1 tablet PO DAILY@0800 07/12/13 500MG + D] Clopidogrel Bisulfate [Plavix] 75 mg PO DAILY 07/12/13 Doxepin HCl [Sinequan] 100 mg PO BID 07/12/13 Doxycycline Monohydrate [Monodox] 100 mg PO BID 07/12/13 [place]-3 Fatty Acids/Fish Oil [Fish 1 each PO DAILY 07/12/13 Oil 1,000 mg Softgel] Vitamin B12 500 mg PO DAILY 07/12/13 Vitamin C 500 mg PO DAILY 07/12/13 proMETHazine soln (6.25mg/5mL) 5 ml PO Q4H PRN PRN 07/12/13 [Phenergan Plain] Prednisone [PredniSONE] 200 mg PO DAILY 07/03/14 Valacyclovir HCl [Valacyclovir] 500 mg PO DAILY 07/03/14 Smoking Status: Never smoker Tobacco Use: Non-smoker Review of Systems Constitutional: Denies: Chills, Fever, Weight Change Eyes: Denies: Pain, Vision Change HEENT: Denies: Difficulty Hearing, Difficulty Swallowing, Sinus Congestion Cardiovascular: Denies: Chest Pain, Palpitations Respiratory: Denies: Cough, Shortness of Breath Gastrointestinal: Denies: Diarrhea, Nausea, Vomiting Genitourinary: Denies: Dysuria, Hematuria Endocrine: Denies: Heat/ Cold Intolerance, Polydipsia, Polyuria Hematologic/ Lymphatic: Denies: Easy Bruising, Easy Bleeding - Physical Exam Vital Signs Temp Pulse Resp BP 99.6 F H 82 16 150/71 H 05/10/18 12:24 05/10/18 12:24 05/10/18 12:24 05/10/18 12:24 General: Alert, Oriented x3, Cooperative, No apparent distress, Well developed, Well nourished HEENT: Atraumatic, PERRLA, EOMI, Normocephalic Oral: Moist Mucosa Neck: No JVD Lungs: Normal air movement Abdomen: Non-Distended Extremities: No clubbing, No cyanosis, No Calf Tenderness, Edema, - - Swelling and edema persist in the left lower extremity, noted particularly on the dorsum of the left foot. This has been chronic in nature. The ulceration of the left calf persists, and is highly irregular in shape. There are numerous skin bridges, and evidence of peripheral epithelialization. The base of the ulceration is pink, with a moderate amount of bioburden. There is no sign of infection or cellulitis. Dimensions are documented elsewhere. Wound Measurements and Assessment WC - Nurse 1 - General Ulcer Measurement Start: 04/19/18 12:39 Freq: Status: Active Protocol: Activity Type Activity Date Activity User E-Sign Co-Sign Detail Recorded Client Recorded Date Recorded By Document 05/10/18 12:24 [id number] 05/10/18 12:39 05/10/18 12:24 Wound Center Nurse 1 [Ulcer Assessment] #3 Medial LLE -Combined with other wound No -Current Size (cm) - Length 8.5 -Current Size (cm) - Width 13.1 -Current Size (cm) - Depth 0.2 -Total Square Cm 111.35 -Photo Taken No -Epithelialization None Present -Tunneling No -Undermining/Tunneling No -Circular Undermining No -Exudate Amt Large (67-100%) -Exudate Type Yellow/Green -Wound Margin Distinct, Outline Attached -Granulation Amt Medium (34-66%) -Granulation Quality [place] Red -Slough/Fibrin Yes -Necrosis Amt None Present (0 %) -Necrotic Tissue Type Adherent Slough -Structure Exposed None/Limited to Skin Breakdown -Texture (Nahomy-wound Skin Appearance) Assessed Localized Edema -Moisture (Nahomy-wound Skin Appearance Assessed ) -Color (Nahomy-wound Skin Appearance) Assessed Erythema -Temperature (Nahomy-wound Skin No Abnormality Appearance) (Pt Warm) -Tenderness on Palpation (Nahomy-wound Yes Skin Appearance) -Ulcer Cleansing Wound Cleanser -Foul Odor after Cleansing No -Anesthetic Used 4% Lidocaine Solution #4 Lateral LLE -Current Size (cm) - Length 10.1 -Current Size (cm) - Width 6.1 -Current Size (cm) - Depth 0.2 -Total Square Cm 61.61 -Epithelialization None Present -Tunneling No -Undermining/Tunneling No -Circular Undermining No -Exudate Amt Large (67-100%) -Exudate Type Yellow/Green -Wound Margin Distinct, Outline Attached -Granulation Amt Medium (34-66%) -Granulation Quality [place] Red -Slough/Fibrin Yes -Necrosis Amt None Present (0 %) -Necrotic Tissue Type Adherent Slough -Structure Exposed None/Limited to Skin Breakdown -Texture (Nahomy-wound Skin Appearance) Assessed Localized Edema -Moisture (Nahomy-wound Skin Appearance No Abnormality ) Assessed -Color (Nahomy-wound Skin Appearance) Assessed Erythema -Temperature (Nahomy-wound Skin No Abnormality Appearance) (Pt Warm) -Tenderness on Palpation (Nahomy-wound Yes Skin Appearance) -Ulcer Cleansing Wound Cleanser -Foul Odor after Cleansing No -Anesthetic Used 4% Lidocaine Solution [Edema Assessment] -Lower Limb Edema Present Yes -Left Calf (cm) 35.9 -Left Ankle (cm) 24.8 WC - Nurse 2 - General Ulcer CM Notes Start: 04/19/18 12:39 Freq: Status: Active Protocol: Activity Type Activity Date Activity User E-Sign Co-Sign Detail Recorded Client Recorded Date Recorded By Document 05/10/18 12:58 [email or web address] [id number] 05/10/18 12:59 TANYA 05/10/18 12:58 Wound Center Nurse 2 [Procedure/Treatment] #3 [facility] LLE -Time 12:58 -Correct Patient Yes -Correct Side, Site, Position Yes -Correct Procedure Yes -Procedure Performed Yes -Type of Procedure Debridement -Clinical Debridement Subcutaneous -Post Debridement Size (cm) - Length 8.5 -Post Debridement Size (cm) - Width 13.2 -Post Debridement Size (cm) - Depth 0.2 -Total Square Cm 112.20 -Wound/Ulcer Outcome Not Healed -Ulcer Cleansing Rinsed/ Irrigated with Saline -Foul Odor after Cleansing No -Bioengineered Tissue No -Bleeding Controlled with Pressure -Treatment Response Procedure Tolerated Well #4 Lateral LLE -Time 12:58 -Correct Patient Yes -Correct Side, Site, Position Yes -Correct Procedure Yes -Procedure Performed Yes -Type of Procedure Debridement -Clinical Debridement Subcutaneous -Post Debridement Size (cm) - Length 10.2 -Post Debridement Size (cm) - Width 6.1 -Post Debridement Size (cm) - Depth 0.2 -Total Square Cm 62.22 -Wound/Ulcer Outcome Not Healed -Ulcer Cleansing Rinsed/ Irrigated with Saline -Foul Odor after Cleansing No -Bioengineered Tissue No -Bleeding Controlled with Pressure -Treatment Response Procedure Tolerated Well [See Physician Procedure note for Specifics] Pain Scale: 0-10 Numeric [Pain] -Is Patient Pain Free? Yes Musculoskeletal: No Muscle Wasting Neurological: Cranial nerves II-XII grossly intact, Neuro grossly intact Psych/Mental Status: Normal Affect, Appropriate, Alert and oriented to time, place, person, mood and affect Debridement Note Post-Debridement Measurements/Treatment WC - Nurse 2 - General Ulcer CM Notes Start: 04/19/18 12:39 Freq: Status: Active Protocol: Activity Type Activity Date Activity User E-Sign Co-Sign Detail Recorded Client Recorded Date Recorded By Document 04/19/18 13:12 JS [id number] 04/19/18 13:20 JS Document 05/10/18 12:58 [email or web address] [id number] 05/10/18 12:59 04/19/18 05/10/18 13:12 12:58 Wound Center Nurse 2 #3 [facility] LLE -Time 13:12 12:58 -Correct Patient Yes Yes -Correct Side, Site, Position Yes Yes -Correct Procedure Yes Yes -Procedure Performed Yes Yes -Type of Procedure Debridement Debridement -Clinical Debridement Subcutaneous Subcutaneous -Post Debridement Size (cm) - Length 10.3 8.5 -Post Debridement Size (cm) - Width 9.5 13.2 -Post Debridement Size (cm) - Depth 0.2 0.2 -Total Square Cm 97.85 112.20 -Wound/Ulcer Outcome Not Healed Not Healed -Ulcer Cleansing Rinsed/ Rinsed/ Irrigated with Irrigated with Saline Saline -Foul Odor after Cleansing No No -Bioengineered Tissue No No -Bleeding Controlled with NA Pressure -Treatment Response Procedure Procedure Tolerated Well Tolerated Well #4 Lateral LLE -Time 13:12 12:58 -Correct Patient Yes Yes -Correct Side, Site, Position Yes Yes -Correct Procedure Yes Yes -Procedure Performed Yes Yes -Type of Procedure Debridement Debridement -Clinical Debridement Subcutaneous Subcutaneous -Post Debridement Size (cm) - Length 13.3 10.2 -Post Debridement Size (cm) - Width 14.1 6.1 -Post Debridement Size (cm) - Depth 0.2 0.2 -Total Square Cm 187.53 62.22 -Wound/Ulcer Outcome Not Healed Not Healed -Ulcer Cleansing Rinsed/ Rinsed/ Irrigated with Irrigated with Saline Saline -Foul Odor after Cleansing No No -Bioengineered Tissue No No -Bleeding Controlled with NA Pressure -Treatment Response Procedure Procedure Tolerated Well Tolerated Well Pain Scale: 0-10 Numeric Is Patient Pain Free? Yes Laterality: Left - Calf Type of Debridement: Excisional debridement Anesthesia Used: 4% Lidocaine Solution Depth: Down to and including healthy tissue, in the subcutaneous layer Percentage of wound debrided: 100 Instrument Used: 5mm curette Severity: Fat Layer Exposed Amount of bleeding with debridement: Mild Bleeding Controlled with: Compression and gauze Patient tolerated procedure well Assessment/Plan Active Problems Chronic venous hypertension with inflammation involving left side (Chronic) Left leg swelling (Chronic) Varicose veins with ulcer and inflammation (Chronic) Leg edema, left (Chronic) Chronic venous insufficiency (Chronic) Lymphedema of left leg (Chronic) 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 She has a large irregular ulceration on the left lower extremity which is related to her venous disease. The patient has demonstrated slow but progressive improvement. The base of the ulceration appears generally pink and healthy, with a moderate amount of biofilm and bioburden. We are to continue leg elevation, avoidance of idle standing and sitting, compression by means of SurePress, active lifestyle, weight control measures,etc. She is to continue to take a well-balanced, nutritious diet. We are to continue with the use of Silvadene topically. This will be applied topically on a daily basis. Plan: As above. The patient will return in 2 weeks for reevaluation. We are to continue Silvadene topically. Her continuing improvement suggests that present measures are appropriate and providing the desired results. Current measures include leg elevation, avoidance of idle standing and sitting, activity as tolerated, weight control, and compression by means of SurePress, applied by the patient on a daily basis. She is to continue with the use of XtraSorb for moisture control. The ulceration continues to be exudative, and the patient has been encouraged to enhance the amount of time spent elevating her lower extremity, to help minimize the drainage. Patient is also to continue the use of Vasculera orally on a daily basis, which appears to have made significant improvement. Nutritional optimization has been recommended. Patient will return in 3 weeks for reassessment. Patient weight is 160 pounds. Patient is 5 feet 9 inches tall. BMI is 23.6. We have discussed weight loss issues, the patient does not require counseling, as her BMI is reasonable. The patient is not a smoker. Influenza vaccine was not administered.
--- NOTE | 2018-05-10 13:09 | HP.PCM_ITS ---
(1) Chronic venous hypertension with inflammation involving left side Status: Chronic Current Visit: Yes Code(s): I87.322 - Chronic venous hypertension (idiopathic) with inflammation of left lower extremity (2) Left leg swelling Status: Chronic Current Visit: Yes Code(s): M79.89 - Other specified soft tissue disorders (3) Varicose veins with ulcer and inflammation Status: Chronic Current Visit: Yes Code(s): I83.209 - Varicose veins of unspecified lower extremity with both ulcer of unspecified site and inflammation ; L97.909 - Non-pressure chronic ulcer of unspecified part of unspecified lower leg with unspecified severity (4) Leg edema, left Status: Chronic Current Visit: Yes Code(s): R60.0 - Localized edema (5) History of DVT (deep vein thrombosis) Status: Chronic Current Visit: No Code(s): Z86.718 - Personal history of other venous thrombosis and embolism Comment: left lower ext (6) Chronic venous insufficiency Status: Chronic Current Visit: Yes (7) Lymphedema of left leg Status: Chronic Current Visit: Yes Code(s): I89.0 - Lymphedema, not elsewhere classified (8) 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 Status: Chronic Current Visit: Yes Code(s): I87.039 - Postthrombotic syndrome with ulcer and inflammation of unspecified lower extremity (9) Calf ulcer Status: Chronic Current Visit: Yes Qualifiers: Laterality: left Code(s): L97.209 - Non-pressure chronic ulcer of unspecified calf with unspecified severity (10) chronic left lower ext wound Status: Chronic Current Visit: Yes History of Present Illness Date of Service: 05/10/18 Chief Complaint: Chronic venous insufficiency, chronic venous hypertension with inflammation and ulceration, varicose veins with inflammation and ulceration, post phlebitic syndrome with inflammation and ulceration,leg swelling, leg edema , lymphedema, venous stasis ulceration-left lower extremity History of Wound: This is a 78-year-old white female with a long-standing history of chronic venous disease and swelling in her left lower extremity. This has been present for many years. She has a large ulceration located between her left knee and ankle, which is quite large and irregular in shape, and also highly exudative. 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 She has also previously undergone successful endovenous laser ablation of the left great and small saphenous veins. Healing of the patient's left lower extremity ulceration has been slow, but progressive. A number of healing measures have been implemented in the past , without success. The patient is pleased with her current progress. We are currently using Silvadene topically and Xtrasorb for absorption of exudate. The patient's left calf ulceration continues to improve. It is smaller in size , with increasing areas of epithelialization, and diminishing dimensions of her left lower extremity ulceration. 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 (Chronic) chronic left lower ext wound (Chronic) Surgical History: appendectomy, hysterectomy Allergies/Adverse Reactions: Allergies Latex, Natural Rubber Allergy (Verified 07/12/13 11:34) Rash Sulfa (Sulfonamide Antibiotics) Allergy (Verified 07/12/13 11:34) Hives trimethoprim Allergy (Verified 07/12/13 11:34) Hives Home Medications: Ambulatory Orders Medication Instructions Recorded Aspirin [Aspirin, Baby] 81 mg PO DAILY@0800 07/12/13 Calcium Carb/Vitamin D [Os-Mo 1 tablet PO DAILY@0800 07/12/13 500MG + D] Clopidogrel Bisulfate [Plavix] 75 mg PO DAILY 07/12/13 Doxepin HCl [Sinequan] 100 mg PO BID 07/12/13 Doxycycline Monohydrate [Monodox] 100 mg PO BID 07/12/13 Weed-3 Fatty Acids/Fish Oil [Fish 1 each PO DAILY 07/12/13 Oil 1,000 mg Softgel] Vitamin B12 500 mg PO DAILY 07/12/13 Vitamin C 500 mg PO DAILY 07/12/13 proMETHazine soln (6.25mg/5mL) 5 ml PO Q4H PRN PRN 07/12/13 [Phenergan Plain] Prednisone [PredniSONE] 200 mg PO DAILY 07/03/14 Valacyclovir HCl [Valacyclovir] 500 mg PO DAILY 07/03/14 Smoking Status: Never smoker Tobacco Use: Non-smoker Review of Systems Constitutional: Denies: Chills, Fever, Weight Change Eyes: Denies: Pain, Vision Change HEENT: Denies: Difficulty Hearing, Difficulty Swallowing, Sinus Congestion Cardiovascular: Denies: Chest Pain, Palpitations Respiratory: Denies: Cough, Shortness of Breath Gastrointestinal: Denies: Diarrhea, Nausea, Vomiting Genitourinary: Denies: Dysuria, Hematuria Endocrine: Denies: Heat/ Cold Intolerance, Polydipsia, Polyuria Hematologic/ Lymphatic: Denies: Easy Bruising, Easy Bleeding - Physical Exam Vital Signs Temp Pulse Resp BP 99.6 F H 82 16 150/71 H 05/10/18 12:24 05/10/18 12:24 05/10/18 12:24 05/10/18 12:24 General: Alert, Oriented x3, Cooperative, No apparent distress, Well developed, Well nourished HEENT: Atraumatic, PERRLA, EOMI, Normocephalic Oral: Moist Mucosa Neck: No JVD Lungs: Normal air movement Abdomen: Non-Distended Extremities: No clubbing, No cyanosis, No Calf Tenderness, Edema, - - Swelling and edema persist in the left lower extremity, noted particularly on the dorsum of the left foot. This has been chronic in nature. The ulceration of the left calf persists, and is highly irregular in shape. There are numerous skin bridges, and evidence of peripheral epithelialization. The base of the ulceration is pink, with a moderate amount of bioburden. There is no sign of infection or cellulitis. Dimensions are documented elsewhere. Wound Measurements and Assessment WC - Nurse 1 - General Ulcer Measurement Start: 04/19/18 12:39 Freq: Status: Active Protocol: Activity Type Activity Date Activity User E-Sign Co-Sign Detail Recorded Client Recorded Date Recorded By Document 05/10/18 12:24 [id number] 05/10/18 12:39 05/10/18 12:24 Wound Center Nurse 1 [Ulcer Assessment] #3 Medial LLE -Combined with other wound No -Current Size (cm) - Length 8.5 -Current Size (cm) - Width 13.1 -Current Size (cm) - Depth 0.2 -Total Square Cm 111.35 -Photo Taken No -Epithelialization None Present -Tunneling No -Undermining/Tunneling No -Circular Undermining No -Exudate Amt Large (67-100%) -Exudate Type Yellow/Green -Wound Margin Distinct, Outline Attached -Granulation Amt Medium (34-66%) -Granulation Quality Beaman Red -Slough/Fibrin Yes -Necrosis Amt None Present (0 %) -Necrotic Tissue Type Adherent Slough -Structure Exposed None/Limited to Skin Breakdown -Texture (Nahomy-wound Skin Appearance) Assessed Localized Edema -Moisture (Nahomy-wound Skin Appearance Assessed ) -Color (Nahomy-wound Skin Appearance) Assessed Erythema -Temperature (Nahomy-wound Skin No Abnormality Appearance) (Pt Warm) -Tenderness on Palpation (Nahomy-wound Yes Skin Appearance) -Ulcer Cleansing Wound Cleanser -Foul Odor after Cleansing No -Anesthetic Used 4% Lidocaine Solution #4 Lateral LLE -Current Size (cm) - Length 10.1 -Current Size (cm) - Width 6.1 -Current Size (cm) - Depth 0.2 -Total Square Cm 61.61 -Epithelialization None Present -Tunneling No -Undermining/Tunneling No -Circular Undermining No -Exudate Amt Large (67-100%) -Exudate Type Yellow/Green -Wound Margin Distinct, Outline Attached -Granulation Amt Medium (34-66%) -Granulation Quality Beaman Red -Slough/Fibrin Yes -Necrosis Amt None Present (0 %) -Necrotic Tissue Type Adherent Slough -Structure Exposed None/Limited to Skin Breakdown -Texture (Nahomy-wound Skin Appearance) Assessed Localized Edema -Moisture (Nahomy-wound Skin Appearance No Abnormality ) Assessed -Color (Nahomy-wound Skin Appearance) Assessed Erythema -Temperature (Nahomy-wound Skin No Abnormality Appearance) (Pt Warm) -Tenderness on Palpation (Nahomy-wound Yes Skin Appearance) -Ulcer Cleansing Wound Cleanser -Foul Odor after Cleansing No -Anesthetic Used 4% Lidocaine Solution [Edema Assessment] -Lower Limb Edema Present Yes -Left Calf (cm) 35.9 -Left Ankle (cm) 24.8 WC - Nurse 2 - General Ulcer CM Notes Start: 04/19/18 12:39 Freq: Status: Active Protocol: Activity Type Activity Date Activity User E-Sign Co-Sign Detail Recorded Client Recorded Date Recorded By Document 05/10/18 12:58 [email or web address] 05/10/18 12:59 [email or web address] 05/10/18 12:58 Wound Center Nurse 2 [Procedure/Treatment] #3 [facility] LLE -Time 12:58 -Correct Patient Yes -Correct Side, Site, Position Yes -Correct Procedure Yes -Procedure Performed Yes -Type of Procedure Debridement -Clinical Debridement Subcutaneous -Post Debridement Size (cm) - Length 8.5 -Post Debridement Size (cm) - Width 13.2 -Post Debridement Size (cm) - Depth 0.2 -Total Square Cm 112.20 -Wound/Ulcer Outcome Not Healed -Ulcer Cleansing Rinsed/ Irrigated with Saline -Foul Odor after Cleansing No -Bioengineered Tissue No -Bleeding Controlled with Pressure -Treatment Response Procedure Tolerated Well #4 Lateral LLE -Time 12:58 -Correct Patient Yes -Correct Side, Site, Position Yes -Correct Procedure Yes -Procedure Performed Yes -Type of Procedure Debridement -Clinical Debridement Subcutaneous -Post Debridement Size (cm) - Length 10.2 -Post Debridement Size (cm) - Width 6.1 -Post Debridement Size (cm) - Depth 0.2 -Total Square Cm 62.22 -Wound/Ulcer Outcome Not Healed -Ulcer Cleansing Rinsed/ Irrigated with Saline -Foul Odor after Cleansing No -Bioengineered Tissue No -Bleeding Controlled with Pressure -Treatment Response Procedure Tolerated Well [See Physician Procedure note for Specifics] Pain Scale: 0-10 Numeric [Pain] -Is Patient Pain Free? Yes Musculoskeletal: No Muscle Wasting Neurological: Cranial nerves II-XII grossly intact, Neuro grossly intact Psych/Mental Status: Normal Affect, Appropriate, Alert and oriented to time, place, person, mood and affect Debridement Note Post-Debridement Measurements/Treatment WC - Nurse 2 - General Ulcer CM Notes Start: 04/19/18 12:39 Freq: Status: Active Protocol: Activity Type Activity Date Activity User E-Sign Co-Sign Detail Recorded Client Recorded Date Recorded By Document 04/19/18 13:12 JS [id number] 04/19/18 13:20 JS Document 05/10/18 12:58 [email or web address] [id number] 05/10/18 12:59 04/19/18 05/10/18 13:12 12:58 Wound Center Nurse 2 #3 [facility] LLE -Time 13:12 12:58 -Correct Patient Yes Yes -Correct Side, Site, Position Yes Yes -Correct Procedure Yes Yes -Procedure Performed Yes Yes -Type of Procedure Debridement Debridement -Clinical Debridement Subcutaneous Subcutaneous -Post Debridement Size (cm) - Length 10.3 8.5 -Post Debridement Size (cm) - Width 9.5 13.2 -Post Debridement Size (cm) - Depth 0.2 0.2 -Total Square Cm 97.85 112.20 -Wound/Ulcer Outcome Not Healed Not Healed -Ulcer Cleansing Rinsed/ Rinsed/ Irrigated with Irrigated with Saline Saline -Foul Odor after Cleansing No No -Bioengineered Tissue No No -Bleeding Controlled with NA Pressure -Treatment Response Procedure Procedure Tolerated Well Tolerated Well #4 Lateral LLE -Time 13:12 12:58 -Correct Patient Yes Yes -Correct Side, Site, Position Yes Yes -Correct Procedure Yes Yes -Procedure Performed Yes Yes -Type of Procedure Debridement Debridement -Clinical Debridement Subcutaneous Subcutaneous -Post Debridement Size (cm) - Length 13.3 10.2 -Post Debridement Size (cm) - Width 14.1 6.1 -Post Debridement Size (cm) - Depth 0.2 0.2 -Total Square Cm 187.53 62.22 -Wound/Ulcer Outcome Not Healed Not Healed -Ulcer Cleansing Rinsed/ Rinsed/ Irrigated with Irrigated with Saline Saline -Foul Odor after Cleansing No No -Bioengineered Tissue No No -Bleeding Controlled with NA Pressure -Treatment Response Procedure Procedure Tolerated Well Tolerated Well Pain Scale: 0-10 Numeric Is Patient Pain Free? Yes Laterality: Left - Calf Type of Debridement: Excisional debridement Anesthesia Used: 4% Lidocaine Solution Depth: Down to and including healthy tissue, in the subcutaneous layer Percentage of wound debrided: 100 Instrument Used: 5mm curette Severity: Fat Layer Exposed Amount of bleeding with debridement: Mild Bleeding Controlled with: Compression and gauze Patient tolerated procedure well Assessment/Plan Active Problems Chronic venous hypertension with inflammation involving left side (Chronic) Left leg swelling (Chronic) Varicose veins with ulcer and inflammation (Chronic) Leg edema, left (Chronic) Chronic venous insufficiency (Chronic) Lymphedema of left leg (Chronic) 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 She has a large irregular ulceration on the left lower extremity which is related to her venous disease. The patient has demonstrated slow but progressive improvement. The base of the ulceration appears generally pink and healthy, with a moderate amount of biofilm and bioburden. We are to continue leg elevation, avoidance of idle standing and sitting, compression by means of SurePress, active lifestyle, weight control measures,etc. She is to continue to take a well-balanced, nutritious diet. We are to continue with the use of Silvadene topically. This will be applied topically on a daily basis. Plan: As above. The patient will return in 2 weeks for reevaluation. We are to continue Silvadene topically. Her continuing improvement suggests that present measures are appropriate and providing the desired results. Current measures include leg elevation, avoidance of idle standing and sitting, activity as tolerated, weight control, and compression by means of SurePress, applied by the patient on a daily basis. She is to continue with the use of XtraSorb for moisture control. The ulceration continues to be exudative, and the patient has been encouraged to enhance the amount of time spent elevating her lower extremity, to help minimize the drainage. Patient is also to continue the use of Vasculera orally on a daily basis, which appears to have made significant improvement. Nutritional optimization has been recommended. Patient will return in 3 weeks for reassessment. Patient weight is 160 pounds. Patient is 5 feet 9 inches tall. BMI is 23.6. We have discussed weight loss issues, the patient does not require counseling, as her BMI is reasonable. The patient is not a smoker. Influenza vaccine was not administered.
== END 2018-05-11 23:59 ==
LOC: WC 12:30
PROVIDERS: Visit Provider Surgery
DX: I83.222 Varicose veins of left lower extremity with both ulcer of calf and inflammation (principal); L97.222 Non-pressure chronic ulcer of left calf with fat layer exposed; R60.0 Localized edema; I89.0 Lymphedema, not elsewhere classified; M79.89 Other specified soft tissue disorders; Z86.718 Personal history of other venous thrombosis and embolism
CPT/HCPCS: 11042; 11045

== ENCOUNTER 2018-06-07 12:30 | Outpatient (RCR) | payer MEDICARE, BC, SELFPAY ==
[2018-05-12 00:34] VITALS: BP 150/71; PULSE 82; RESP 16; TEMP 37.6
[2018-05-24 12:29] VITALS: BP 149/75; PULSE 76; RESP 16; TEMP 37
--- NOTE | 2018-05-24 13:06 | PCM.WC.HP ---
(1) Chronic venous hypertension with inflammation involving left side Status: Chronic Current Visit: Yes Code(s): I87.322 - Chronic venous hypertension (idiopathic) with inflammation of left lower extremity (2) Left leg swelling Status: Chronic Current Visit: Yes Code(s): M79.89 - Other specified soft tissue disorders (3) Varicose veins with ulcer and inflammation Status: Chronic Current Visit: Yes Code(s): I83.209 - Varicose veins of unspecified lower extremity with both ulcer of unspecified site and inflammation; L97.909 - Non-pressure chronic ulcer of unspecified part of unspecified lower leg with unspecified severity (4) Leg edema, left Status: Chronic Current Visit: Yes Code(s): R60.0 - Localized edema (5) May-Thurner syndrome Status: Resolved Current Visit: No Code(s): I87.1 - Compression of vein (6) History of DVT (deep vein thrombosis) Status: Chronic Current Visit: Yes Code(s): Z86.718 - Personal history of other venous thrombosis and embolism Comment: left lower ext (7) dermatomycosis leg Status: Resolved Current Visit: No (8) Cellulitis, leg Status: Resolved Current Visit: No Qualifiers: Code(s): L03.119 - Cellulitis of unspecified part of limb (9) Erythema of skin Status: Resolved Current Visit: No Code(s): L53.9 - Erythematous condition, unspecified (10) Cellulitis of leg Status: Resolved Current Visit: No Qualifiers: Code(s): L03.119 - Cellulitis of unspecified part of limb (11) Cellulitis Status: Resolved Current Visit: No Code(s): L03.90 - Cellulitis, unspecified (12) Chronic venous insufficiency Status: Chronic Current Visit: Yes (13) Lymphedema of left leg Status: Chronic Current Visit: Yes Code(s): I89.0 - Lymphedema, not elsewhere classified (14) 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 Status: Chronic Current Visit: Yes Code(s): I87.039 - Postthrombotic syndrome with ulcer and inflammation of unspecified lower extremity (15) Calf ulcer Status: Chronic Current Visit: Yes Qualifiers: Laterality: left Non-pressure ulcer stage: with fat layer exposed Qualified Code(s): L97.222 - Non-pressure chronic ulcer of left calf with fat layer exposed Code(s): L97.209 - Non-pressure chronic ulcer of unspecified calf with unspecified severity (16) chronic left lower ext wound Status: Chronic Current Visit: Yes History of Present Illness Date of Service: 05/24/18 Chief Complaint: Chronic venous insufficiency, chronic venous hypertension with inflammation and ulceration, varicose veins with inflammation and ulceration, post phlebitic syndrome with inflammation and ulceration,leg swelling, leg edema, lymphedema, venous stasis ulceration-left lower extremity History of Wound: This is a 78-year-old white female with a long-standing history of chronic venous disease and swelling in her left lower extremity. This has been present for many years. She has a large ulceration located between her left knee and ankle, which is quite large and irregular in shape, and also highly exudative. 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 She has also previously undergone successful endovenous laser ablation of the left great and small saphenous veins. Healing of the patient's left lower extremity ulceration has been slow, but progressive. A number of healing measures have been implemented in the past, without success. The patient is pleased with her current progress. We are currently using Silvadene topically and Xtrasorb for absorption of exudate. The patient's left calf ulceration continues to improve. It is smaller in size, with increasing areas of epithelialization, and diminishing dimensions of her left lower extremity ulceration. 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 (Chronic) chronic left lower ext wound (Chronic) Surgical History: appendectomy, hysterectomy Allergies/Adverse Reactions: Allergies Latex, Natural Rubber Allergy (Verified 07/12/13 11:34) Rash Sulfa (Sulfonamide Antibiotics) Allergy (Verified 07/12/13 11:34) Hives trimethoprim Allergy (Verified 07/12/13 11:34) Hives Home Medications: Ambulatory Orders Medication Instructions Recorded Aspirin [Aspirin, Baby] 81 mg PO DAILY@0800 07/12/13 Calcium Carb/Vitamin D [Os-Mo 1 tablet PO DAILY@0800 07/12/13 500MG + D] Clopidogrel Bisulfate [Plavix] 75 mg PO DAILY 07/12/13 Doxepin HCl [Sinequan] 100 mg PO BID 07/12/13 Doxycycline Monohydrate [Monodox] 100 mg PO BID 07/12/13 Cory-3 Fatty Acids/Fish Oil [Fish 1 each PO DAILY 07/12/13 Oil 1,000 mg Softgel] Vitamin B12 500 mg PO DAILY 07/12/13 Vitamin C 500 mg PO DAILY 07/12/13 proMETHazine soln (6.25mg/5mL) 5 ml PO Q4H PRN PRN 07/12/13 [Phenergan Plain] Prednisone [PredniSONE] 200 mg PO DAILY 07/03/14 Valacyclovir HCl [Valacyclovir] 500 mg PO DAILY 07/03/14 Smoking Status: Never smoker Tobacco Use: Non-smoker Review of Systems Constitutional: Denies: Chills, Fever, Weight Change Eyes: Denies: Pain, Vision Change HEENT: Denies: Difficulty Hearing, Difficulty Swallowing, Sinus Congestion Cardiovascular: Denies: Chest Pain, Palpitations Respiratory: Denies: Cough, Shortness of Breath Gastrointestinal: Denies: Diarrhea, Nausea, Vomiting Genitourinary: Denies: Dysuria, Hematuria Endocrine: Denies: Heat/ Cold Intolerance, Polydipsia, Polyuria Hematologic/ Lymphatic: Denies: Easy Bruising, Easy Bleeding - Physical Exam Vital Signs Temp Pulse Resp BP 98.6 F 76 16 149/75 H 05/24/18 12:29 05/24/18 12:29 05/24/18 12:29 05/24/18 12:29 General: Alert, Oriented x3, Cooperative, No apparent distress, Well developed, Well nourished HEENT: Atraumatic, PERRLA, EOMI, Normocephalic Oral: Moist Mucosa Neck: No JVD Lungs: Normal air movement Abdomen: Non-Distended Extremities: No clubbing, No cyanosis, No Calf Tenderness, - - Swelling, edema, and lymphedema persist in the left lower extremity. It is most notable on the dorsum of the left foot. The ulceration of the left calf persists, though there are increasing areas of epithelialization. The base of the ulceration is generally pink and healthy in appearance, with a moderate amount of bioburden. There is no sign of infection or cellulitis. Dimensions are documented elsewhere. The ulceration is highly irregular in shape, with numerous skin bridges. Wound Measurements and Assessment WC - Nurse 1 - General Ulcer Measurement Start: 05/24/18 12:29 Freq: Status: Active Protocol: Activity Type Activity Date Activity User E-Sign Co-Sign Detail Recorded Client Recorded Date Recorded By Document 05/24/18 12:29 [id number] 05/24/18 12:36 05/24/18 12:29 Wound Center Nurse 1 [Ulcer Assessment] #3 Medial LLE -Combined with other wound No -Current Size (cm) - Length 10.5 -Current Size (cm) - Width 6.5 -Current Size (cm) - Depth 0.2 -Total Square Cm 68.25 -Date of Last Picture (Recall this 05/24/18 field) -Photo Taken Yes -Epithelialization None Present -Tunneling No -Undermining/Tunneling No -Circular Undermining No -Exudate Amt Large (67-100%) -Exudate Type Yellow/Green -Wound Margin Distinct, Outline Attached -Granulation Amt None Present (0 %) -Granulation Quality N/A -Slough/Fibrin Yes -Necrosis Amt None Present (0 %) -Necrotic Tissue Type Adherent Slough -Texture (Nahomy-wound Skin Appearance) Assessed Localized Edema -Moisture (Nahomy-wound Skin Appearance Assessed ) -Color (Nahomy-wound Skin Appearance) Assessed Erythema -Temperature (Nahomy-wound Skin No Abnormality Appearance) (Pt Warm) -Tenderness on Palpation (Nahomy-wound Yes Skin Appearance) -Ulcer Cleansing Wound Cleanser -Foul Odor after Cleansing No -Anesthetic Used 5% Lidocaine Gel #4 Lateral LLE -Combined with other wound No -Current Size (cm) - Length 12.7 -Current Size (cm) - Width 14.4 -Current Size (cm) - Depth 0.2 -Total Square Cm 182.88 -Date of Last Picture (Recall this 05/24/18 field) -Photo Taken Yes -Epithelialization None Present -Tunneling No -Undermining/Tunneling No -Circular Undermining No -Exudate Amt Large (67-100%) -Exudate Type Yellow/Green -Wound Margin Distinct, Outline Attached -Granulation Amt None Present (0 %) -Granulation Quality N/A -Slough/Fibrin Yes -Necrosis Amt None Present (0 %) -Necrotic Tissue Type Adherent Slough -Structure Exposed None/Limited to Skin Breakdown -Texture (Nahomy-wound Skin Appearance) Assessed Localized Edema -Moisture (Nahomy-wound Skin Appearance Assessed ) -Color (Nahomy-wound Skin Appearance) Assessed Erythema -Temperature (Nahomy-wound Skin No Abnormality Appearance) (Pt Warm) -Tenderness on Palpation (Nahomy-wound Yes Skin Appearance) -Ulcer Cleansing Wound Cleanser -Foul Odor after Cleansing No -Anesthetic Used 5% Lidocaine Gel [Edema Assessment] -Lower Limb Edema Present Yes -Left Calf (cm) 36.5 -Left Ankle (cm) 24.5 Musculoskeletal: No Muscle Wasting Neurological: Cranial nerves II-XII grossly intact, Neuro grossly intact Psych/Mental Status: Normal Affect, Appropriate, Alert and oriented to time, place, person, mood and affect Debridement Note Laterality: Left - Calf Type of Debridement: Excisional debridement Anesthesia Used: 4% Lidocaine Solution Depth: Down to and including healthy tissue, in the subcutaneous layer Percentage of wound debrided: 100 Instrument Used: 5mm curette Severity: Fat Layer Exposed Amount of bleeding with debridement: Mild Bleeding Controlled with: Compression and gauze Patient tolerated procedure well Assessment/Plan Active Problems Chronic venous hypertension with inflammation involving left side (Chronic) Left leg swelling (Chronic) Varicose veins with ulcer and inflammation (Chronic) Leg edema, left (Chronic) History of DVT (deep vein thrombosis) (Chronic) left lower ext Chronic venous insufficiency (Chronic) Lymphedema of left leg (Chronic) 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 She has a large irregular ulceration on the left lower extremity which is related to her venous disease. The patient has demonstrated slow but progressive improvement. The base of the ulceration appears generally pink and healthy, with a moderate amount of biofilm and bioburden. We are to continue leg elevation, avoidance of idle standing and sitting, compression by means of SurePress, active lifestyle, weight control measures,etc. She is to continue to take a well-balanced, nutritious diet. We are to continue with the use of Silvadene topically. This will be applied topically on a daily basis. Plan: As above. The patient will return in 2 weeks for reevaluation. We are to continue Silvadene topically. Her continuing improvement suggests that present measures are appropriate and providing the desired results. Current measures include leg elevation, avoidance of idle standing and sitting, activity as tolerated, weight control, and compression by means of SurePress, applied by the patient on a daily basis. She is to continue with the use of XtraSorb for moisture control. The ulceration continues to be exudative, and the patient has been encouraged to enhance the amount of time spent elevating her lower extremity, to help minimize the drainage. Patient is also to continue the use of Vasculera orally on a daily basis, which appears to have made significant improvement. Nutritional optimization has been recommended. Patient will return in 2 weeks for reassessment. Patient weight is 160 pounds. Patient is 5 feet 9 inches tall. BMI is 23.6. We have discussed weight loss issues, the patient does not require counseling, as her BMI is reasonable. The patient is not a smoker. Influenza vaccine was not administered.
[2018-06-07 12:27] VITALS: BP 157/79; PULSE 84; RESP 20; TEMP 36.8
--- NOTE | 2018-06-07 13:29 | PCM.WC.HP ---
(1) Chronic venous hypertension with inflammation involving left side Status: Chronic Current Visit: Yes Code(s): I87.322 - Chronic venous hypertension (idiopathic) with inflammation of left lower extremity (2) Left leg swelling Status: Chronic Current Visit: Yes Code(s): M79.89 - Other specified soft tissue disorders (3) Varicose veins with ulcer and inflammation Status: Chronic Current Visit: Yes Code(s): I83.209 - Varicose veins of unspecified lower extremity with both ulcer of unspecified site and inflammation; L97.909 - Non-pressure chronic ulcer of unspecified part of unspecified lower leg with unspecified severity (4) Leg edema, left Status: Chronic Current Visit: Yes Code(s): R60.0 - Localized edema (5) History of DVT (deep vein thrombosis) Status: Chronic Current Visit: Yes Code(s): Z86.718 - Personal history of other venous thrombosis and embolism Comment: left lower ext (6) Chronic venous insufficiency Status: Chronic Current Visit: Yes (7) Lymphedema of left leg Status: Chronic Current Visit: Yes Code(s): I89.0 - Lymphedema, not elsewhere classified (8) 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 Status: Chronic Current Visit: Yes Code(s): I87.039 - Postthrombotic syndrome with ulcer and inflammation of unspecified lower extremity (9) Calf ulcer Status: Chronic Current Visit: Yes Qualifiers: Laterality: left Non-pressure ulcer stage: with fat layer exposed Qualified Code(s): L97.222 - Non-pressure chronic ulcer of left calf with fat layer exposed Code(s): L97.209 - Non-pressure chronic ulcer of unspecified calf with unspecified severity (10) chronic left lower ext wound Status: Chronic Current Visit: Yes History of Present Illness Date of Service: 06/07/18 Chief Complaint: Chronic venous insufficiency, chronic venous hypertension with inflammation and ulceration, varicose veins with inflammation and ulceration, post phlebitic syndrome with inflammation and ulceration,leg swelling, leg edema, lymphedema, venous stasis ulceration-left lower extremity History of Wound: This is a 78-year-old white female with a long-standing history of chronic venous disease and swelling in her left lower extremity. This has been present for many years. She has a large ulceration located between her left knee and ankle, which is quite large and irregular in shape, and also highly exudative. 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 She has also previously undergone successful endovenous laser ablation of the left great and small saphenous veins. Healing of the patient's left lower extremity ulceration has been slow, but progressive. A number of healing measures have been implemented in the past, without success. The patient is pleased with her current progress. We are currently using Silvadene topically and Xtrasorb for absorption of exudate. The patient's left calf ulceration continues to improve. It is smaller in size, with increasing areas of epithelialization, and diminishing dimensions of her left lower extremity ulceration. 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 (Chronic) chronic left lower ext wound (Chronic) Surgical History: appendectomy, hysterectomy Allergies/Adverse Reactions: Allergies Latex, Natural Rubber Allergy (Verified 07/12/13 11:34) Rash Sulfa (Sulfonamide Antibiotics) Allergy (Verified 07/12/13 11:34) Hives trimethoprim Allergy (Verified 07/12/13 11:34) Hives Home Medications: Ambulatory Orders Medication Instructions Recorded Aspirin [Aspirin, Baby] 81 mg PO DAILY@0800 07/12/13 Calcium Carb/Vitamin D [Os-Mo 1 tablet PO DAILY@0800 07/12/13 500MG + D] Clopidogrel Bisulfate [Plavix] 75 mg PO DAILY 07/12/13 Doxepin HCl [Sinequan] 100 mg PO BID 07/12/13 Doxycycline Monohydrate [Monodox] 100 mg PO BID 07/12/13 [place]-3 Fatty Acids/Fish Oil [Fish 1 each PO DAILY 07/12/13 Oil 1,000 mg Softgel] Vitamin B12 500 mg PO DAILY 07/12/13 Vitamin C 500 mg PO DAILY 07/12/13 proMETHazine soln (6.25mg/5mL) 5 ml PO Q4H PRN PRN 10/01/13 [Phenergan Plain] Prednisone [PredniSONE] 200 mg PO DAILY 07/03/14 Valacyclovir HCl [Valacyclovir] 500 mg PO DAILY 07/03/14 Smoking Status: Never smoker Tobacco Use: Non-smoker Review of Systems Constitutional: Denies: Chills, Fever, Weight Change Eyes: Denies: Pain, Vision Change HEENT: Denies: Difficulty Hearing, Difficulty Swallowing, Sinus Congestion Cardiovascular: Denies: Chest Pain, Palpitations Respiratory: Denies: Cough, Shortness of Breath Gastrointestinal: Denies: Diarrhea, Nausea, Vomiting Genitourinary: Denies: Dysuria, Hematuria Endocrine: Denies: Heat/ Cold Intolerance, Polydipsia, Polyuria Hematologic/ Lymphatic: Denies: Easy Bruising, Easy Bleeding - Physical Exam Vital Signs Temp Pulse Resp BP 98.3 F 84 20 H 157/79 H 06/07/18 12:27 06/07/18 12:27 06/07/18 12:27 06/07/18 12:27 General: Alert, Oriented x3, Cooperative, No apparent distress, Well developed, Well nourished HEENT: Atraumatic, PERRLA, EOMI, Normocephalic Oral: Moist Mucosa Neck: No JVD Lungs: Normal air movement Abdomen: Non-Distended Extremities: No clubbing, No cyanosis, No Calf Tenderness, - - Swelling and edema persist in the left lower extremity. It is most notable on the dorsum of left foot, and has been chronic in nature. The ulceration of the left calf persists, with evidence of increasing areas of epithelialization. The ulceration is quite irregular in shape with multiple skin bridges and islands of epithelialization. Base of the ulceration is generally pink, with a moderate amount of bioburden. There is no sign of infection or cellulitis. Ulcer dimensions are documented elsewhere. Skin: No rashes Wound Measurements and Assessment WC - Nurse 1 - General Ulcer Measurement Start: 05/24/18 12:29 Freq: Status: Active Protocol: Activity Type Activity Date Activity User E-Sign Co-Sign Detail Recorded Client Recorded Date Recorded By Document 06/07/18 12:27 DL [id number] 06/07/18 12:39 DL 06/07/18 12:27 Wound Center Nurse 1 [Ulcer Assessment] #3 Medial LLE -Current Size (cm) - Length 10.2 -Current Size (cm) - Width 8.9 -Current Size (cm) - Depth 0.2 -Total Square Cm 90.78 -Photo Taken No -Exudate Amt Large (67-100%) -Exudate Type Yellow/Green -Wound Margin Distinct, Outline Attached -Granulation Amt Medium (34-66%) -Granulation Quality Red -Necrosis Amt Medium (34-66%) -Necrotic Tissue Type Adherent Slough -Structure Exposed N/A -Texture (Nahomy-wound Skin Appearance) Scarring -Moisture (Nahomy-wound Skin Appearance No Abnormality ) -Color (Nahomy-wound Skin Appearance) Hemosiderin Staining -Temperature (Nahomy-wound Skin No Abnormality Appearance) (Pt Warm) -Tenderness on Palpation (Nahomy-wound No Skin Appearance) -Ulcer Cleansing Wound Cleanser -Foul Odor after Cleansing No -Anesthetic Used 4% Lidocaine Solution #4 Lateral LLE -Current Size (cm) - Length 12.2 -Current Size (cm) - Width 11 -Current Size (cm) - Depth 0.2 -Total Square Cm 134.2 -Photo Taken No -Exudate Amt Large (67-100%) -Exudate Type Yellow/Green -Wound Margin Distinct, Outline Attached -Granulation Amt Medium (34-66%) -Granulation Quality Red -Necrosis Amt Medium (34-66%) -Necrotic Tissue Type Adherent Slough -Structure Exposed N/A -Texture (Nahomy-wound Skin Appearance) Scarring -Moisture (Nahomy-wound Skin Appearance No Abnormality ) -Color (Nahomy-wound Skin Appearance) Hemosiderin Staining -Temperature (Nahomy-wound Skin No Abnormality Appearance) (Pt Warm) -Tenderness on Palpation (Nahomy-wound No Skin Appearance) -Ulcer Cleansing Wound Cleanser -Foul Odor after Cleansing No -Anesthetic Used 4% Lidocaine Solution [Edema Assessment] -Left Calf (cm) 34.2 -Left Ankle (cm) 24 WC - Nurse 2 - General Ulcer CM Notes Start: 05/24/18 12:29 Freq: Status: Active Protocol: Activity Type Activity Date Activity User E-Sign Co-Sign Detail Recorded Client Recorded Date Recorded By Document 06/07/18 13:24 [id number] 06/07/18 13:26 [email or web address] 06/07/18 13:24 Wound Center Nurse 2 [Procedure/Treatment] #3 Medial LLE -Time 13:24 -Correct Patient Yes -Correct Side, Site, Position Yes -Correct Procedure Yes -Procedure Performed Yes -Type of Procedure Debridement -Clinical Debridement Subcutaneous -Post Debridement Size (cm) - Length 10.5 -Post Debridement Size (cm) - Width 8.9 -Post Debridement Size (cm) - Depth 0.2 -Total Square Cm 93.45 -Wound/Ulcer Outcome Not Healed -Ulcer Cleansing Rinsed/ Irrigated with Saline -Foul Odor after Cleansing No -Bioengineered Tissue No -Bleeding Controlled with Pressure -Treatment Response Procedure Tolerated Well #4 Lateral LLE -Time 13:25 -Correct Patient Yes -Correct Side, Site, Position Yes -Correct Procedure Yes -Procedure Performed Yes -Type of Procedure Debridement -Clinical Debridement Subcutaneous -Post Debridement Size (cm) - Length 12.2 -Post Debridement Size (cm) - Width 11.2 -Post Debridement Size (cm) - Depth 0.2 -Total Square Cm 136.64 -Wound/Ulcer Outcome Not Healed -Ulcer Cleansing Rinsed/ Irrigated with Saline -Foul Odor after Cleansing No -Bioengineered Tissue No -Bleeding Controlled with Pressure -Treatment Response Procedure Tolerated Well [See Physician Procedure note for Specifics] Pain Scale: 0-10 Numeric [Pain] -Is Patient Pain Free? Yes Neurological: Cranial nerves II-XII grossly intact, Neuro grossly intact Psych/Mental Status: Normal Affect, Appropriate, Alert and oriented to time, place, person, mood and affect Debridement Note Post-Debridement Measurements/Treatment WC - Nurse 2 - General Ulcer CM Notes Start: 05/24/18 12:29 Freq: Status: Active Protocol: Activity Type Activity Date Activity User E-Sign Co-Sign Detail Recorded Client Recorded Date Recorded By Document 05/24/18 13:06 [email or web address] 05/24/18 13:08 Document 06/07/18 13:24 [id number] 06/07/18 13:26 05/24/18 06/07/18 13:06 13:24 Wound Center Nurse 2 #3 Medial LLE -Time 13:07 13:24 -Correct Patient Yes Yes -Correct Side, Site, Position Yes Yes -Correct Procedure Yes Yes -Procedure Performed Yes Yes -Type of Procedure Debridement Debridement -Clinical Debridement Subcutaneous Subcutaneous -Post Debridement Size (cm) - Length 10.4 10.5 -Post Debridement Size (cm) - Width 6.1 8.9 -Post Debridement Size (cm) - Depth 0.2 0.2 -Total Square Cm 63.44 93.45 -Wound/Ulcer Outcome Not Healed Not Healed -Ulcer Cleansing Rinsed/ Rinsed/ Irrigated with Irrigated with Saline Saline -Foul Odor after Cleansing No No -Bioengineered Tissue No No -Bleeding Controlled with NA Pressure -Treatment Response Procedure Procedure Tolerated Well Tolerated Well #4 Lateral LLE -Time 13:07 13:25 -Correct Patient Yes Yes -Correct Side, Site, Position Yes Yes -Correct Procedure Yes Yes -Procedure Performed Yes Yes -Type of Procedure Debridement Debridement -Clinical Debridement Subcutaneous Subcutaneous -Post Debridement Size (cm) - Length 10 12.2 -Post Debridement Size (cm) - Width 14 11.2 -Post Debridement Size (cm) - Depth 0.2 0.2 -Total Square Cm 140 136.64 -Wound/Ulcer Outcome Not Healed Not Healed -Ulcer Cleansing Rinsed/ Rinsed/ Irrigated with Irrigated with Saline Saline -Foul Odor after Cleansing No No -Bioengineered Tissue No No -Bleeding Controlled with NA Pressure -Treatment Response Procedure Procedure Tolerated Well Tolerated Well Pain Scale: 0-10 Numeric Is Patient Pain Free? Yes Yes Laterality: Left - Calf Type of Debridement: Excisional debridement Anesthesia Used: 4% Lidocaine Solution Depth: Down to and including healthy tissue, in the subcutaneous layer Percentage of wound debrided: 100 Instrument Used: 5mm curette Severity: Fat Layer Exposed Amount of bleeding with debridement: Mild Bleeding Controlled with: Compression and gauze Patient tolerated procedure well Assessment/Plan Active Problems Chronic venous hypertension with inflammation involving left side (Chronic) Left leg swelling (Chronic) Varicose veins with ulcer and inflammation (Chronic) Leg edema, left (Chronic) History of DVT (deep vein thrombosis) (Chronic) left lower ext Chronic venous insufficiency (Chronic) Lymphedema of left leg (Chronic) 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 She has a large irregular ulceration on the left lower extremity which is related to her venous disease. The patient has demonstrated slow but progressive improvement. The base of the ulceration appears generally pink and healthy, with a moderate amount of biofilm and bioburden. We are to continue leg elevation, avoidance of idle standing and sitting, compression by means of SurePress, active lifestyle, weight control measures,etc. She is to continue to take a well-balanced, nutritious diet. We are to continue with the use of Silvadene topically. This will be applied topically on a daily basis. Plan: As above. The patient will return in 2 weeks for reevaluation. We are to continue Silvadene topically. Her continuing improvement suggests that present measures are appropriate and providing the desired results. Current measures include leg elevation, avoidance of idle standing and sitting, activity as tolerated, weight control, and compression by means of SurePress, applied by the patient on a daily basis. She is to continue with the use of XtraSorb for moisture control. The ulceration continues to be exudative, and the patient has been encouraged to enhance the amount of time spent elevating her lower extremity, to help minimize the drainage. Patient is also to continue the use of Vasculera orally on a daily basis, which appears to have made significant improvement. Nutritional optimization has been recommended. Patient will return in 2 weeks for reassessment. Patient weight is 160 pounds. Patient is 5 feet 9 inches tall. BMI is 23.6. We have discussed weight loss issues, the patient does not require counseling, as her BMI is reasonable. The patient is not a smoker. Influenza vaccine was not administered.
== END 2018-06-11 23:59 ==
LOC: WC 12:30
PROVIDERS: Visit Provider Surgery
DX: I83.222 Varicose veins of left lower extremity with both ulcer of calf and inflammation (principal); L97.222 Non-pressure chronic ulcer of left calf with fat layer exposed; Z86.718 Personal history of other venous thrombosis and embolism; R60.0 Localized edema; M79.89 Other specified soft tissue disorders; I89.0 Lymphedema, not elsewhere classified; Z79.899 Other long term (current) drug therapy; Z79.82 Long term (current) use of aspirin; Z79.52 Long term (current) use of systemic steroids; Z79.02 Long term (current) use of antithrombotics/antiplatelets
CPT/HCPCS: 11042; 11045

== ENCOUNTER 2018-07-05 12:30 | Outpatient (RCR) | payer MEDICARE, BC, SELFPAY ==
[2018-06-12 00:45] VITALS: BP 157/79; PULSE 84; RESP 20; TEMP 36.8
[2018-06-21 12:39] VITALS: BP 153/73; PULSE 71; RESP 16; TEMP 36
--- NOTE | 2018-06-21 13:22 | HP.PCM_ITS ---
(1) Chronic venous hypertension with inflammation involving left side Status: Chronic Current Visit: Yes Code(s): I87.322 - Chronic venous hypertension (idiopathic) with inflammation of left lower extremity (2) Left leg swelling Status: Chronic Current Visit: Yes Code(s): M79.89 - Other specified soft tissue disorders (3) Varicose veins with ulcer and inflammation Status: Chronic Current Visit: Yes Code(s): I83.209 - Varicose veins of unspecified lower extremity with both ulcer of unspecified site and inflammation ; L97.909 - Non-pressure chronic ulcer of unspecified part of unspecified lower leg with unspecified severity (4) Leg edema, left Status: Chronic Current Visit: Yes Code(s): R60.0 - Localized edema (5) May-Thurner syndrome Status: Resolved Current Visit: No Code(s): I87.1 - Compression of vein (6) History of DVT (deep vein thrombosis) Status: Chronic Current Visit: No Code(s): Z86.718 - Personal history of other venous thrombosis and embolism Comment: left lower ext (7) dermatomycosis leg Status: Resolved Current Visit: No (8) Cellulitis, leg Status: Resolved Current Visit: No Qualifiers: Code(s): L03.119 - Cellulitis of unspecified part of limb (9) Erythema of skin Status: Resolved Current Visit: No Code(s): L53.9 - Erythematous condition, unspecified (10) Cellulitis of leg Status: Resolved Current Visit: No Qualifiers: Code(s): L03.119 - Cellulitis of unspecified part of limb (11) Cellulitis Status: Resolved Current Visit: No Code(s): L03.90 - Cellulitis, unspecified (12) Chronic venous insufficiency Status: Chronic Current Visit: Yes (13) Lymphedema of left leg Status: Chronic Current Visit: Yes Code(s): I89.0 - Lymphedema, not elsewhere classified (14) 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 Status: Chronic Current Visit: Yes Code(s): I87.039 - Postthrombotic syndrome with ulcer and inflammation of unspecified lower extremity (15) Calf ulcer Status: Chronic Current Visit: Yes Qualifiers: Laterality: left Non-pressure ulcer stage: with fat layer exposed Qualified Code(s): L97.222 - Non-pressure chronic ulcer of left calf with fat layer exposed Code(s): L97.209 - Non-pressure chronic ulcer of unspecified calf with unspecified severity (16) chronic left lower ext wound Status: Chronic Current Visit: Yes History of Present Illness Date of Service: 06/21/18 Chief Complaint: Chronic venous insufficiency, chronic venous hypertension with inflammation and ulceration, varicose veins with inflammation and ulceration, post phlebitic syndrome with inflammation and ulceration,leg swelling, leg edema , lymphedema, venous stasis ulceration-left lower extremity History of Wound: This is a 78-year-old white female with a long-standing history of chronic venous disease and swelling in her left lower extremity. This has been present for many years. She has a large ulceration located between her left knee and ankle, which is quite large and irregular in shape, and also highly exudative. 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 She has also previously undergone successful endovenous laser ablation of the left great and small saphenous veins. Healing of the patient's left lower extremity ulceration has been slow, but progressive. A number of healing measures have been implemented in the past , without success. The patient is pleased with her current progress. We are currently using Silvadene topically and Xtrasorb for absorption of exudate. The patient's left calf ulceration continues to improve. It is smaller in size , with increasing areas of epithelialization, and diminishing dimensions of her left lower extremity ulceration. 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 (Chronic) chronic left lower ext wound (Chronic) Surgical History: appendectomy, hysterectomy Allergies/Adverse Reactions: Allergies Latex, Natural Rubber Allergy (Verified 07/12/13 11:34) Rash Sulfa (Sulfonamide Antibiotics) Allergy (Verified 07/12/13 11:34) Hives trimethoprim Allergy (Verified 07/12/13 11:34) Hives Home Medications: Ambulatory Orders Medication Instructions Recorded Aspirin [Aspirin, Baby] 81 mg PO DAILY@0800 07/12/13 Calcium Carb/Vitamin D [Os-Mo 1 tablet PO DAILY@0800 07/12/13 500MG + D] Clopidogrel Bisulfate [Plavix] 75 mg PO DAILY 07/12/13 Doxepin HCl [Sinequan] 100 mg PO BID 07/12/13 Doxycycline Monohydrate [Monodox] 100 mg PO BID 07/12/13 Holland-3 Fatty Acids/Fish Oil [Fish 1 each PO DAILY 07/12/13 Oil 1,000 mg Softgel] Vitamin B12 500 mg PO DAILY 07/12/13 Vitamin C 500 mg PO DAILY 07/12/13 proMETHazine soln (6.25mg/5mL) 5 ml PO Q4H PRN PRN 07/12/13 [Phenergan Plain] Prednisone [PredniSONE] 200 mg PO DAILY 07/03/14 Valacyclovir HCl [Valacyclovir] 500 mg PO DAILY 07/03/14 Smoking Status: Never smoker Tobacco Use: Non-smoker Review of Systems Constitutional: Denies: Chills, Fever, Weight Change Eyes: Denies: Pain, Vision Change HEENT: Denies: Difficulty Hearing, Difficulty Swallowing, Sinus Congestion Cardiovascular: Denies: Chest Pain, Palpitations Respiratory: Denies: Cough, Shortness of Breath Gastrointestinal: Denies: Diarrhea, Nausea, Vomiting Genitourinary: Denies: Dysuria, Hematuria Endocrine: Denies: Heat/ Cold Intolerance, Polydipsia, Polyuria Hematologic/ Lymphatic: Denies: Easy Bruising, Easy Bleeding - Physical Exam Vital Signs Temp Pulse Resp BP 96.8 F L 71 16 153/73 H 06/21/18 12:39 06/21/18 12:39 06/21/18 12:39 06/21/18 12:39 General: Alert, Oriented x3, Cooperative, No apparent distress, Well developed, Well nourished HEENT: Atraumatic, PERRLA, EOMI, Normocephalic Oral: Moist Mucosa Neck: No JVD Lungs: Normal air movement Abdomen: Non-Distended Extremities: No clubbing, No cyanosis, No edema, No Calf Tenderness, Edema, - - Swelling and edema persist in the left lower extremity. This is most notable on the dorsum of the left foot. The ulceration of the left calf persists as well, very irregular in shape. There are increasing areas of epithelialization. The ulceration appears to be diminishing in size. Dimensions are documented elsewhere. There is a moderate amount of bioburden. There is no sign of infection or cellulitis. Skin: No rashes Wound Measurements and Assessment WC - Nurse 1 - General Ulcer Measurement Start: 06/21/18 12:39 Freq: Status: Active Protocol: Activity Type Activity Date Activity User E-Sign Co-Sign Detail Recorded Client Recorded Date Recorded By Document 06/21/18 12:39 MW [id number] 06/21/18 12:51 MW 06/21/18 12:39 Wound Center Nurse 1 [Ulcer Assessment] #3 Medial LLE -Combined with other wound No -Current Size (cm) - Length 10.2 -Current Size (cm) - Width 8.0 -Current Size (cm) - Depth 0.1 -Total Square Cm 81.60 -Date of Last Picture (Recall this 06/21/18 field) -Photo Taken Yes -Epithelialization None Present -Tunneling No -Undermining/Tunneling No -Circular Undermining No -Exudate Amt Large (67-100%) -Exudate Type Serosanguineous -Wound Margin Flat & Intact -Granulation Amt Medium (34-66%) -Granulation Quality Red -Necrosis Amt Medium (34-66%) -Necrotic Tissue Type Adherent Slough -Structure Exposed N/A -Texture (Nahomy-wound Skin Appearance) Assessed Localized Edema Scarring -Moisture (Nahomy-wound Skin Appearance Assessed ) Weeping -Color (Nahomy-wound Skin Appearance) Assessed Rubor -Temperature (Nahomy-wound Skin No Abnormality Appearance) (Pt Warm) -Tenderness on Palpation (Nahomy-wound Yes Skin Appearance) -Ulcer Cleansing soap and water -Foul Odor after Cleansing No -Anesthetic Used 4% Lidocaine Solution #4 Lateral LLE -Combined with other wound No -Current Size (cm) - Length 11.5 -Current Size (cm) - Width 12.0 -Current Size (cm) - Depth 0.1 -Total Square Cm 138.00 -Date of Last Picture (Recall this 06/21/18 field) -Photo Taken Yes -Epithelialization None Present -Tunneling No -Undermining/Tunneling No -Circular Undermining No -Exudate Amt Large (67-100%) -Exudate Type Serosanguineous -Wound Margin Flat & Intact -Granulation Amt Medium (34-66%) -Granulation Quality Red -Slough/Fibrin No -Necrosis Amt Medium (34-66%) -Necrotic Tissue Type Adherent Slough -Structure Exposed N/A -Texture (Nahomy-wound Skin Appearance) Assessed Localized Edema Scarring -Moisture (Nahomy-wound Skin Appearance Assessed ) Weeping -Color (Nahomy-wound Skin Appearance) Assessed Rubor -Temperature (Nahomy-wound Skin No Abnormality Appearance) (Pt Warm) -Tenderness on Palpation (Nahomy-wound No Skin Appearance) -Ulcer Cleansing soap and water -Foul Odor after Cleansing No -Anesthetic Used 4% Lidocaine Solution [Edema Assessment] -Lower Limb Edema Present Yes -Left Calf (cm) 40.1 -Left Ankle (cm) 24.2 WC - Nurse 2 - General Ulcer CM Notes Start: 06/21/18 12:39 Freq: Status: Active Protocol: Activity Type Activity Date Activity User E-Sign Co-Sign Detail Recorded Client Recorded Date Recorded By Document 06/21/18 12:55 CARLOS [id number] 06/21/18 13:01 CARLOS 06/21/18 12:55 Wound Center Nurse 2 [Procedure/Treatment] #3 Medial LLE -Time 12:56 -Correct Patient Yes -Correct Side, Site, Position Yes -Correct Procedure Yes -Procedure Performed Yes -Type of Procedure Debridement -Clinical Debridement Subcutaneous -Post Debridement Size (cm) - Length 10.3 -Post Debridement Size (cm) - Width 8.1 -Post Debridement Size (cm) - Depth 0.1 -Total Square Cm 83.43 -Wound/Ulcer Outcome Not Healed -Ulcer Cleansing Rinsed/ Irrigated with Saline -Foul Odor after Cleansing No -Bioengineered Tissue No -Topical Lidocaine (%) 4 -Lidocaine (ml) 10 -Bleeding Controlled with NA -Treatment Response Procedure Tolerated Well #4 Lateral LLE -Time 12:56 -Correct Patient Yes -Correct Side, Site, Position Yes -Correct Procedure Yes -Procedure Performed Yes -Type of Procedure Debridement -Clinical Debridement Subcutaneous -Post Debridement Size (cm) - Length 11.6 -Post Debridement Size (cm) - Width 12.1 -Post Debridement Size (cm) - Depth 0.1 -Total Square Cm 140.36 -Wound/Ulcer Outcome Not Healed -Ulcer Cleansing Rinsed/ Irrigated with Saline -Foul Odor after Cleansing No -Bioengineered Tissue No -Topical Lidocaine (%) 4 -Lidocaine (ml) 10 -Bleeding Controlled with NA -Treatment Response Procedure Tolerated Well [See Physician Procedure note for Specifics] Pain Scale: 0-10 Numeric [Pain] -Is Patient Pain Free? Yes Neurological: Cranial nerves II-XII grossly intact, Neuro grossly intact Psych/Mental Status: Normal Affect, Appropriate, Alert and oriented to time, place, person, mood and affect Debridement Note Post-Debridement Measurements/Treatment WC - Nurse 2 - General Ulcer CM Notes Start: 06/21/18 12:39 Freq: Status: Active Protocol: Activity Type Activity Date Activity User E-Sign Co-Sign Detail Recorded Client Recorded Date Recorded By Document 06/21/18 12:55 CARLOS [id number] 06/21/18 13:01 CARLOS 06/21/18 12:55 Wound Center Nurse 2 #3 Medial LLE -Time 12:56 -Correct Patient Yes -Correct Side, Site, Position Yes -Correct Procedure Yes -Procedure Performed Yes -Type of Procedure Debridement -Clinical Debridement Subcutaneous -Post Debridement Size (cm) - Length 10.3 -Post Debridement Size (cm) - Width 8.1 -Post Debridement Size (cm) - Depth 0.1 -Total Square Cm 83.43 -Wound/Ulcer Outcome Not Healed -Ulcer Cleansing Rinsed/ Irrigated with Saline -Foul Odor after Cleansing No -Bioengineered Tissue No -Topical Lidocaine (%) 4 -Lidocaine (ml) 10 -Bleeding Controlled with NA -Treatment Response Procedure Tolerated Well #4 Lateral LLE -Time 12:56 -Correct Patient Yes -Correct Side, Site, Position Yes -Correct Procedure Yes -Procedure Performed Yes -Type of Procedure Debridement -Clinical Debridement Subcutaneous -Post Debridement Size (cm) - Length 11.6 -Post Debridement Size (cm) - Width 12.1 -Post Debridement Size (cm) - Depth 0.1 -Total Square Cm 140.36 -Wound/Ulcer Outcome Not Healed -Ulcer Cleansing Rinsed/ Irrigated with Saline -Foul Odor after Cleansing No -Bioengineered Tissue No -Topical Lidocaine (%) 4 -Lidocaine (ml) 10 -Bleeding Controlled with NA -Treatment Response Procedure Tolerated Well Pain Scale: 0-10 Numeric Is Patient Pain Free? Yes Laterality: Left - Calf Type of Debridement: Excisional debridement Anesthesia Used: 4% Lidocaine Solution Depth: Down to and including healthy tissue, in the subcutaneous layer Percentage of wound debrided: 100 Instrument Used: 5mm curette Severity: Fat Layer Exposed Amount of bleeding with debridement: Mild Bleeding Controlled with: Compression and gauze Patient tolerated procedure well Assessment/Plan Active Problems Chronic venous hypertension with inflammation involving left side (Chronic) Left leg swelling (Chronic) Varicose veins with ulcer and inflammation (Chronic) Leg edema, left (Chronic) Chronic venous insufficiency (Chronic) Lymphedema of left leg (Chronic) 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 She has a large irregular ulceration on the left lower extremity which is related to her venous disease. The patient has demonstrated slow but progressive improvement. The base of the ulceration appears generally pink and healthy, with a moderate amount of biofilm and bioburden. We are to continue leg elevation, avoidance of idle standing and sitting, compression by means of SurePress, active lifestyle, weight control measures,etc. She is to continue to take a well-balanced, nutritious diet. We are to continue with the use of Silvadene topically. This will be applied topically on a daily basis. The patient has recently been diagnosed with dementia. According to the patient's , her management in the home setting is becoming increasingly more difficult. Plan: As above. The patient will return in 2 weeks for reevaluation. We are to continue Silvadene topically. Her continuing improvement suggests that present measures are appropriate and providing the desired results. Current measures include leg elevation, avoidance of idle standing and sitting, activity as tolerated, weight control, and compression by means of SurePress, applied by the patient on a daily basis. She is to continue with the use of XtraSorb for moisture control. The ulceration continues to be exudative, and the patient has been encouraged to enhance the amount of time spent elevating her lower extremity, to help minimize the drainage. Patient is also to continue the use of Vasculera orally on a daily basis, which appears to have made significant improvement. Nutritional optimization has been recommended. Patient will return in 2 weeks for reassessment. Patient weight is 160 pounds. Patient is 5 feet 9 inches tall. BMI is 23.6. We have discussed weight loss issues, the patient does not require counseling, as her BMI is reasonable. The patient is not a smoker. Influenza vaccine was not administered.
[2018-07-05 12:57] VITALS: BP 147/78; PULSE 74; RESP 16; TEMP 36.2
--- NOTE | 2018-07-05 13:21 | HP.PCM_ITS ---
(1) Chronic venous hypertension with inflammation involving left side Status: Chronic Current Visit: Yes Code(s): I87.322 - Chronic venous hypertension (idiopathic) with inflammation of left lower extremity (2) Left leg swelling Status: Chronic Current Visit: Yes Code(s): M79.89 - Other specified soft tissue disorders (3) Varicose veins with ulcer and inflammation Status: Chronic Current Visit: Yes Code(s): I83.209 - Varicose veins of unspecified lower extremity with both ulcer of unspecified site and inflammation ; L97.909 - Non-pressure chronic ulcer of unspecified part of unspecified lower leg with unspecified severity (4) Leg edema, left Status: Chronic Current Visit: Yes Code(s): R60.0 - Localized edema (5) History of DVT (deep vein thrombosis) Status: Chronic Current Visit: No Code(s): Z86.718 - Personal history of other venous thrombosis and embolism Comment: left lower ext (6) Chronic venous insufficiency Status: Chronic Current Visit: Yes (7) Lymphedema of left leg Status: Chronic Current Visit: Yes Code(s): I89.0 - Lymphedema, not elsewhere classified (8) 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 Status: Chronic Current Visit: Yes Code(s): I87.039 - Postthrombotic syndrome with ulcer and inflammation of unspecified lower extremity (9) Calf ulcer Status: Chronic Current Visit: Yes Qualifiers: Laterality: left Non-pressure ulcer stage: with fat layer exposed Qualified Code(s): L97.222 - Non-pressure chronic ulcer of left calf with fat layer exposed Code(s): L97.209 - Non-pressure chronic ulcer of unspecified calf with unspecified severity (10) chronic left lower ext wound Status: Chronic Current Visit: Yes History of Present Illness Date of Service: 07/05/18 Chief Complaint: Chronic venous insufficiency, chronic venous hypertension with inflammation and ulceration, varicose veins with inflammation and ulceration, post phlebitic syndrome with inflammation and ulceration,leg swelling, leg edema , lymphedema, venous stasis ulceration-left lower extremity History of Wound: This is a 78-year-old white female with a long-standing history of chronic venous disease and swelling in her left lower extremity. This has been present for many years. She has a large ulceration located between her left knee and ankle, which is quite large and irregular in shape, and also highly exudative. 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 She has also previously undergone successful endovenous laser ablation of the left great and small saphenous veins. Healing of the patient's left lower extremity ulceration has been slow, but progressive. A number of healing measures have been implemented in the past , without success. The patient is pleased with her current progress. We are currently using Silvadene topically and Xtrasorb for absorption of exudate. The patient's left calf ulceration continues to improve. It is smaller in size , with increasing areas of epithelialization, and diminishing dimensions of her left lower extremity ulceration. 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 (Chronic) chronic left lower ext wound (Chronic) Surgical History: appendectomy, hysterectomy Allergies/Adverse Reactions: Allergies Latex, Natural Rubber Allergy (Verified 07/12/13 11:34) Rash Sulfa (Sulfonamide Antibiotics) Allergy (Verified 07/12/13 11:34) Hives trimethoprim Allergy (Verified 07/12/13 11:34) Hives Home Medications: Ambulatory Orders Medication Instructions Recorded Aspirin [Aspirin, Baby] 81 mg PO DAILY@0800 07/12/13 Calcium Carb/Vitamin D [Os-Mo 1 tablet PO DAILY@0800 07/12/13 500MG + D] Clopidogrel Bisulfate [Plavix] 75 mg PO DAILY 07/12/13 Doxepin HCl [Sinequan] 100 mg PO BID 07/12/13 Doxycycline Monohydrate [Monodox] 100 mg PO BID 07/12/13 [place]-3 Fatty Acids/Fish Oil [Fish 1 each PO DAILY 07/12/13 Oil 1,000 mg Softgel] Vitamin B12 500 mg PO DAILY 07/12/13 Vitamin C 500 mg PO DAILY 07/12/13 proMETHazine soln (6.25mg/5mL) 5 ml PO Q4H PRN PRN 10/01/13 [Phenergan Plain] Prednisone [PredniSONE] 200 mg PO DAILY 07/03/14 Valacyclovir HCl [Valacyclovir] 500 mg PO DAILY 07/03/14 Smoking Status: Never smoker Tobacco Use: Non-smoker Review of Systems Constitutional: Denies: Chills, Fever, Weight Change Eyes: Denies: Pain, Vision Change HEENT: Denies: Difficulty Hearing, Difficulty Swallowing, Sinus Congestion Cardiovascular: Denies: Chest Pain, Palpitations Respiratory: Denies: Cough, Shortness of Breath Gastrointestinal: Denies: Diarrhea, Nausea, Vomiting Genitourinary: Denies: Dysuria, Hematuria Endocrine: Denies: Heat/ Cold Intolerance, Polydipsia, Polyuria Hematologic/ Lymphatic: Denies: Easy Bruising, Easy Bleeding - Physical Exam Vital Signs Temp Pulse Resp BP 97.1 F L 74 16 147/78 H 07/05/18 12:57 07/05/18 12:57 07/05/18 12:57 07/05/18 12:57 General: Alert, Oriented x3, Cooperative, No apparent distress, Well developed, Well nourished HEENT: Atraumatic, PERRLA, EOMI, Normocephalic Oral: Moist Mucosa Neck: No JVD Lungs: Normal air movement Abdomen: Non-Distended Extremities: No clubbing, No cyanosis, No Calf Tenderness, - - Edema persists in the left lower extremity, most notably on the dorsum of the left foot. This has been chronic in nature. The large ulceration on the left calf persists as well, little changed in appearance. It is highly irregular in shape. There is a moderate amount of bioburden. There is no sign of infection or cellulitis. Dimensions and circumference measurements are documented elsewhere. Skin: No rashes Wound Measurements and Assessment WC - Nurse 1 - General Ulcer Measurement Start: 06/21/18 12:39 Freq: Status: Active Protocol: Activity Type Activity Date Activity User E-Sign Co-Sign Detail Recorded Client Recorded Date Recorded By Document 07/05/18 12:57 [id number] 07/05/18 13:01 07/05/18 12:57 Wound Center Nurse 1 [Ulcer Assessment] #3 Medial LLE -Combined with other wound No -Current Size (cm) - Length 10.2 -Current Size (cm) - Width 7.4 -Current Size (cm) - Depth 0.1 -Total Square Cm 75.48 -Temperature (Nahomy-wound Skin No Abnormality Appearance) (Pt Warm) -Tenderness on Palpation (Nahomy-wound Yes Skin Appearance) -Ulcer Cleansing Wound Cleanser -Foul Odor after Cleansing No -Anesthetic Used 4% Lidocaine Solution 5% Lidocaine Gel #4 Lateral LLE -Combined with other wound No -Current Size (cm) - Length 11.2 -Current Size (cm) - Width 11.8 -Current Size (cm) - Depth 0.1 -Total Square Cm 132.16 -Photo Taken No -Epithelialization None Present -Tunneling No -Undermining/Tunneling No -Circular Undermining No -Exudate Amt Large (67-100%) -Exudate Type Serosanguineous -Necrotic Tissue Type Adherent Slough -Texture (Nahomy-wound Skin Appearance) No Abnormality Assessed -Moisture (Nahomy-wound Skin Appearance No Abnormality ) Assessed -Color (Nahomy-wound Skin Appearance) No Abnormality -Temperature (Nahomy-wound Skin No Abnormality Appearance) (Pt Warm) -Tenderness on Palpation (Nahomy-wound No Skin Appearance) -Ulcer Cleansing Wound Cleanser -Foul Odor after Cleansing No -Anesthetic Used 4% Lidocaine Solution 5% Lidocaine Gel [Edema Assessment] -Lower Limb Edema Present No -Left Calf (cm) 33 -Left Ankle (cm) 26 Neurological: Cranial nerves II-XII grossly intact, Neuro grossly intact Psych/Mental Status: Normal Affect, Appropriate, Alert and oriented to time, place, person, mood and affect Debridement Note Post-Debridement Measurements/Treatment WC - Nurse 2 - General Ulcer CM Notes Start: 06/21/18 12:39 Freq: Status: Active Protocol: Activity Type Activity Date Activity User E-Sign Co-Sign Detail Recorded Client Recorded Date Recorded By Document 06/21/18 12:55 [id number] 06/21/18 13:01 CARLOS 06/21/18 12:55 Wound Center Nurse 2 #3 Medial LLE -Time 12:56 -Correct Patient Yes -Correct Side, Site, Position Yes -Correct Procedure Yes -Procedure Performed Yes -Type of Procedure Debridement -Clinical Debridement Subcutaneous -Post Debridement Size (cm) - Length 10.3 -Post Debridement Size (cm) - Width 8.1 -Post Debridement Size (cm) - Depth 0.1 -Total Square Cm 83.43 -Wound/Ulcer Outcome Not Healed -Ulcer Cleansing Rinsed/ Irrigated with Saline -Foul Odor after Cleansing No -Bioengineered Tissue No -Topical Lidocaine (%) 4 -Lidocaine (ml) 10 -Bleeding Controlled with NA -Treatment Response Procedure Tolerated Well #4 Lateral LLE -Time 12:56 -Correct Patient Yes -Correct Side, Site, Position Yes -Correct Procedure Yes -Procedure Performed Yes -Type of Procedure Debridement -Clinical Debridement Subcutaneous -Post Debridement Size (cm) - Length 11.6 -Post Debridement Size (cm) - Width 12.1 -Post Debridement Size (cm) - Depth 0.1 -Total Square Cm 140.36 -Wound/Ulcer Outcome Not Healed -Ulcer Cleansing Rinsed/ Irrigated with Saline -Foul Odor after Cleansing No -Bioengineered Tissue No -Topical Lidocaine (%) 4 -Lidocaine (ml) 10 -Bleeding Controlled with NA -Treatment Response Procedure Tolerated Well Pain Scale: 0-10 Numeric Is Patient Pain Free? Yes Laterality: Left - Calf Type of Debridement: Excisional debridement Anesthesia Used: 4% Lidocaine Solution Depth: Down to and including healthy tissue, in the subcutaneous layer Percentage of wound debrided: 100 Instrument Used: 7mm curette Severity: Fat Layer Exposed Amount of bleeding with debridement: Mild Bleeding Controlled with: Compression and gauze Patient tolerated procedure well Assessment/Plan Active Problems Chronic venous hypertension with inflammation involving left side (Chronic) Left leg swelling (Chronic) Varicose veins with ulcer and inflammation (Chronic) Leg edema, left (Chronic) Chronic venous insufficiency (Chronic) Lymphedema of left leg (Chronic) 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 She has a large irregular ulceration on the left lower extremity which is related to her venous disease. The patient has demonstrated slow but progressive improvement. The base of the ulceration appears generally pink and healthy, with a moderate amount of biofilm and bioburden. We are to continue leg elevation, avoidance of idle standing and sitting, compression by means of SurePress, active lifestyle, weight control measures,etc. She is to continue to take a well-balanced, nutritious diet. We are to continue with the use of Silvadene topically. This will be applied topically on a daily basis. The patient has recently been diagnosed with dementia. According to the patient's , her management in the home setting is becoming increasingly more difficult. Plan: As above. The patient will return in 2 weeks for reevaluation. We are to continue Silvadene topically. Her continuing improvement suggests that present measures are appropriate and providing the desired results. Current measures include leg elevation, avoidance of idle standing and sitting, activity as tolerated, weight control, and compression by means of SurePress, applied by the patient on a daily basis. She is to continue with the use of XtraSorb for moisture control. The ulceration continues to be exudative, and the patient has been encouraged to enhance the amount of time spent elevating her lower extremity, to help minimize the drainage. Patient is also to continue the use of Vasculera orally on a daily basis, which appears to have made significant improvement. Nutritional optimization has been recommended. Patient will return in 2 weeks for reassessment. Patient weight is 160 pounds. Patient is 5 feet 9 inches tall. BMI is 23.6. We have discussed weight loss issues, the patient does not require counseling, as her BMI is reasonable. The patient is not a smoker. Influenza vaccine was not administered.
== END 2018-07-11 23:59 ==
LOC: WC 12:30
PROVIDERS: Visit Provider Surgery
DX: I83.222 Varicose veins of left lower extremity with both ulcer of calf and inflammation (principal); L97.222 Non-pressure chronic ulcer of left calf with fat layer exposed; M79.89 Other specified soft tissue disorders; R60.0 Localized edema; I89.0 Lymphedema, not elsewhere classified; I87.1 Compression of vein; Z86.718 Personal history of other venous thrombosis and embolism; Z79.899 Other long term (current) drug therapy
CPT/HCPCS: 11042; 11045

== ENCOUNTER 2018-08-02 12:30 | Outpatient (RCR) | payer MEDICARE, BC, SELFPAY ==
[2018-07-12 00:39] VITALS: BP 147/78; PULSE 74; RESP 16; TEMP 36.2
[2018-07-19 12:35] VITALS: BP 123/80; PULSE 67; RESP 16; TEMP 37.1
--- NOTE | 2018-07-19 13:22 | PCM.WC.HP ---
(1) Chronic venous hypertension with inflammation involving left side Status: Chronic Current Visit: Yes Code(s): I87.322 - Chronic venous hypertension (idiopathic) with inflammation of left lower extremity (2) Left leg swelling Status: Chronic Current Visit: Yes Code(s): M79.89 - Other specified soft tissue disorders (3) Varicose veins with ulcer and inflammation Status: Chronic Current Visit: Yes Code(s): I83.209 - Varicose veins of unspecified lower extremity with both ulcer of unspecified site and inflammation; L97.909 - Non-pressure chronic ulcer of unspecified part of unspecified lower leg with unspecified severity (4) Leg edema, left Status: Chronic Current Visit: Yes Code(s): R60.0 - Localized edema (5) May-Thurner syndrome Status: Resolved Current Visit: No Code(s): I87.1 - Compression of vein (6) History of DVT (deep vein thrombosis) Status: Chronic Current Visit: No Code(s): Z86.718 - Personal history of other venous thrombosis and embolism Comment: left lower ext (7) dermatomycosis leg Status: Resolved Current Visit: No (8) Cellulitis, leg Status: Resolved Current Visit: No Qualifiers: Code(s): L03.119 - Cellulitis of unspecified part of limb (9) Erythema of skin Status: Resolved Current Visit: No Code(s): L53.9 - Erythematous condition, unspecified (10) Cellulitis of leg Status: Resolved Current Visit: No Qualifiers: Code(s): L03.119 - Cellulitis of unspecified part of limb (11) Cellulitis Status: Resolved Current Visit: No Code(s): L03.90 - Cellulitis, unspecified (12) Chronic venous insufficiency Status: Chronic Current Visit: Yes (13) Lymphedema of left leg Status: Chronic Current Visit: Yes Code(s): I89.0 - Lymphedema, not elsewhere classified (14) 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 Status: Chronic Current Visit: Yes Code(s): I87.039 - Postthrombotic syndrome with ulcer and inflammation of unspecified lower extremity (15) Calf ulcer Status: Chronic Current Visit: Yes Qualifiers: Laterality: left Non-pressure ulcer stage: with fat layer exposed Qualified Code(s): L97.222 - Non-pressure chronic ulcer of left calf with fat layer exposed Code(s): L97.209 - Non-pressure chronic ulcer of unspecified calf with unspecified severity (16) chronic left lower ext wound Status: Chronic Current Visit: Yes History of Present Illness Chief Complaint: Chronic venous insufficiency, chronic venous hypertension with inflammation and ulceration, varicose veins with inflammation and ulceration, post phlebitic syndrome with inflammation and ulceration,leg swelling, leg edema, lymphedema, venous stasis ulceration-left lower extremity History of Wound: This is a 78-year-old white female with a long-standing history of chronic venous disease and swelling in her left lower extremity. This has been present for many years. She has a large ulceration located between her left knee and ankle, which is quite large and irregular in shape, and also highly exudative. 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 She has also previously undergone successful endovenous laser ablation of the left great and small saphenous veins. Healing of the patient's left lower extremity ulceration has been slow, but progressive. A number of healing measures have been implemented in the past, without success. The patient is pleased with her current progress. We are currently using Silvadene topically and Xtrasorb for absorption of exudate. The patient's left calf ulceration continues to improve. It is smaller in size, with increasing areas of epithelialization, and diminishing dimensions of her left lower extremity ulceration. 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 (Chronic) chronic left lower ext wound (Chronic) Surgical History: appendectomy, hysterectomy Allergies/Adverse Reactions: Allergies Latex, Natural Rubber Allergy (Verified 07/12/13 11:34) Rash Sulfa (Sulfonamide Antibiotics) Allergy (Verified 07/12/13 11:34) Hives trimethoprim Allergy (Verified 07/12/13 11:34) Hives Home Medications: Ambulatory Orders Medication Instructions Recorded Aspirin [Aspirin, Baby] 81 mg PO DAILY@0800 07/12/13 Calcium Carb/Vitamin D [Os-Mo 1 tablet PO DAILY@0800 07/12/13 500MG + D] Clopidogrel Bisulfate [Plavix] 75 mg PO DAILY 07/12/13 Doxepin HCl [Sinequan] 100 mg PO BID 07/12/13 Doxycycline Monohydrate [Monodox] 100 mg PO BID 07/12/13 Evergreen-3 Fatty Acids/Fish Oil [Fish 1 each PO DAILY 07/12/13 Oil 1,000 mg Softgel] Vitamin B12 500 mg PO DAILY 07/12/13 Vitamin C 500 mg PO DAILY 07/12/13 proMETHazine soln (6.25mg/5mL) 5 ml PO Q4H PRN PRN 07/12/13 [Phenergan Plain] Prednisone [PredniSONE] 200 mg PO DAILY 07/03/14 Valacyclovir HCl [Valacyclovir] 500 mg PO DAILY 07/03/14 Smoking Status: Never smoker Tobacco Use: Non-smoker Review of Systems Constitutional: Denies: Chills, Fever, Weight Change Eyes: Denies: Pain, Vision Change HEENT: Denies: Difficulty Hearing, Difficulty Swallowing, Sinus Congestion Cardiovascular: Denies: Chest Pain, Palpitations Respiratory: Denies: Cough, Shortness of Breath Gastrointestinal: Denies: Diarrhea, Nausea, Vomiting Genitourinary: Denies: Dysuria, Hematuria Endocrine: Denies: Heat/ Cold Intolerance, Polydipsia, Polyuria Hematologic/ Lymphatic: Denies: Easy Bruising, Easy Bleeding - Physical Exam Vital Signs Temp Pulse Resp BP 98.7 F 67 16 123/80 H 07/19/18 12:35 07/19/18 12:35 07/19/18 12:35 07/19/18 12:35 General: Alert, Oriented x3, Cooperative, No apparent distress, Well developed, Well nourished HEENT: Atraumatic, PERRLA, EOMI, Normocephalic Oral: Moist Mucosa Neck: No JVD Lungs: Normal air movement Abdomen: Non-Distended Extremities: No clubbing, No cyanosis, No Calf Tenderness, Edema, - - Swelling and edema persist in the left lower extremity, most notable on the dorsum of the left foot. This is chronic in nature. There is a moderate amount of bioburden. The ulceration is irregular in shape. There are areas of healthy, pink granulation tissue. Dimensions are documented elsewhere. There is no sign of infection or cellulitis. Skin: No rashes Wound Measurements and Assessment WC - Nurse 1 - General Ulcer Measurement Start: 07/19/18 12:31 Freq: Status: Active Protocol: Activity Type Activity Date Activity User E-Sign Co-Sign Detail Recorded Client Recorded Date Recorded By Document 07/19/18 12:35 CARLOS [id number] 07/19/18 13:13 CARLOS 07/19/18 12:35 Wound Center Nurse 1 [Ulcer Assessment] #3 Medial LLE -Combined with other wound No -Current Size (cm) - Length 10.6 -Current Size (cm) - Width 6.4 -Current Size (cm) - Depth 0.2 -Total Square Cm 67.84 -Date of Last Picture (Recall this 07/19/18 field) -Photo Taken Yes -Epithelialization Small 1-33% -Tunneling No -Undermining/Tunneling No -Circular Undermining No -Classification - Thickness Full Thickness without Exposed Support Structure -Exudate Amt Medium (34-66%) -Exudate Type Serosanguineous -Wound Margin Distinct, Outline Attached -Granulation Amt Small (1-33%) -Granulation Quality Red -Slough/Fibrin Yes -Necrosis Amt None Present (0 %) -Necrotic Tissue Type Adherent Slough -Structure Exposed None/Limited to Skin Breakdown -Texture (Nahomy-wound Skin Appearance) No Abnormality -Moisture (Nahomy-wound Skin Appearance No Abnormality ) -Color (Nahomy-wound Skin Appearance) Hemosiderin Staining -Temperature (Nahomy-wound Skin No Abnormality Appearance) (Pt Warm) -Tenderness on Palpation (Nahomy-wound Yes Skin Appearance) -Ulcer Cleansing DYNAHEX -Foul Odor after Cleansing No -Anesthetic Used 4% Lidocaine Solution #4 Lateral LLE -Combined with other wound No -Current Size (cm) - Length 14.0 -Current Size (cm) - Width 12.0 -Current Size (cm) - Depth 0.2 -Total Square Cm 168.00 -Date of Last Picture (Recall this 07/19/18 field) -Photo Taken Yes -Epithelialization Small 1-33% -Tunneling No -Undermining/Tunneling No -Circular Undermining No -Classification - Thickness Full Thickness without Exposed Support Structure -Exudate Amt Medium (34-66%) -Exudate Type Serosanguineous -Wound Margin Distinct, Outline Attached -Granulation Amt Small (1-33%) -Granulation Quality Red -Slough/Fibrin Yes -Necrotic Tissue Type Adherent Slough -Structure Exposed None/Limited to Skin Breakdown -Texture (Nahomy-wound Skin Appearance) No Abnormality -Moisture (Nahomy-wound Skin Appearance No Abnormality ) -Color (Nahomy-wound Skin Appearance) No Abnormality -Temperature (Nahomy-wound Skin No Abnormality Appearance) (Pt Warm) -Tenderness on Palpation (Nahomy-wound Yes Skin Appearance) -Ulcer Cleansing DYNAHEX -Foul Odor after Cleansing No -Anesthetic Used 4% Lidocaine Solution [Edema Assessment] -Lower Limb Edema Present Yes -Left Calf (cm) 35.0 -Left Ankle (cm) 26.5 WC - Nurse 2 - General Ulcer CM Notes Start: 07/19/18 12:31 Freq: Status: Active Protocol: Activity Type Activity Date Activity User E-Sign Co-Sign Detail Recorded Client Recorded Date Recorded By Document 07/19/18 12:35 CARLOS [id number] 07/19/18 13:13 CARLOS 07/19/18 12:35 Wound Center Nurse 2 [Procedure/Treatment] #3 Medial LLE -Time 12:58 -Correct Patient Yes -Correct Side, Site, Position Yes -Correct Procedure Yes -Procedure Performed Yes -Type of Procedure Debridement -Clinical Debridement Subcutaneous -Post Debridement Size (cm) - Length 10.6 -Post Debridement Size (cm) - Width 6.5 -Post Debridement Size (cm) - Depth 0.2 -Total Square Cm 68.90 -Wound/Ulcer Outcome Not Healed -Ulcer Cleansing Rinsed/ Irrigated with Saline -Foul Odor after Cleansing No -Bioengineered Tissue No -Topical Lidocaine (%) 4 -Lidocaine (ml) 15 -Bleeding Controlled with NA -Treatment Response Procedure Tolerated Well #4 Lateral LLE -Time 12:58 -Correct Patient Yes -Correct Side, Site, Position Yes -Correct Procedure Yes -Procedure Performed Yes -Type of Procedure Debridement -Clinical Debridement Subcutaneous -Post Debridement Size (cm) - Length 14.1 -Post Debridement Size (cm) - Width 12 -Post Debridement Size (cm) - Depth 0.2 -Total Square Cm 169.2 -Wound/Ulcer Outcome Not Healed -Ulcer Cleansing Rinsed/ Irrigated with Saline -Foul Odor after Cleansing No -Bioengineered Tissue No -Topical Lidocaine (%) 4 -Lidocaine (ml) 15 -Bleeding Controlled with NA -Treatment Response Procedure Tolerated Well Neurological: Cranial nerves II-XII grossly intact, Neuro grossly intact Psych/Mental Status: Normal Affect, Appropriate, Alert and oriented to time, place, person, mood and affect Debridement Note Post-Debridement Measurements/Treatment WC - Nurse 2 - General Ulcer CM Notes Start: 07/19/18 12:31 Freq: Status: Active Protocol: Activity Type Activity Date Activity User E-Sign Co-Sign Detail Recorded Client Recorded Date Recorded By Document 07/19/18 12:35 CARLOS [id number] 07/19/18 13:13 CARLOS 07/19/18 12:35 Wound Center Nurse 2 #3 Medial LLE -Time 12:58 -Correct Patient Yes -Correct Side, Site, Position Yes -Correct Procedure Yes -Procedure Performed Yes -Type of Procedure Debridement -Clinical Debridement Subcutaneous -Post Debridement Size (cm) - Length 10.6 -Post Debridement Size (cm) - Width 6.5 -Post Debridement Size (cm) - Depth 0.2 -Total Square Cm 68.90 -Wound/Ulcer Outcome Not Healed -Ulcer Cleansing Rinsed/ Irrigated with Saline -Foul Odor after Cleansing No -Bioengineered Tissue No -Topical Lidocaine (%) 4 -Lidocaine (ml) 15 -Bleeding Controlled with NA -Treatment Response Procedure Tolerated Well #4 Lateral LLE -Time 12:58 -Correct Patient Yes -Correct Side, Site, Position Yes -Correct Procedure Yes -Procedure Performed Yes -Type of Procedure Debridement -Clinical Debridement Subcutaneous -Post Debridement Size (cm) - Length 14.1 -Post Debridement Size (cm) - Width 12 -Post Debridement Size (cm) - Depth 0.2 -Total Square Cm 169.2 -Wound/Ulcer Outcome Not Healed -Ulcer Cleansing Rinsed/ Irrigated with Saline -Foul Odor after Cleansing No -Bioengineered Tissue No -Topical Lidocaine (%) 4 -Lidocaine (ml) 15 -Bleeding Controlled with NA -Treatment Response Procedure Tolerated Well Laterality: Left - Calf Type of Debridement: Excisional debridement Anesthesia Used: 4% Lidocaine Solution Depth: Down to and including healthy tissue, in the subcutaneous layer Percentage of wound debrided: 100 Instrument Used: 7mm curette Severity: Fat Layer Exposed Amount of bleeding with debridement: Mild Bleeding Controlled with: Compression and gauze Patient tolerated procedure well Assessment/Plan Active Problems Chronic venous hypertension with inflammation involving left side (Chronic) Left leg swelling (Chronic) Varicose veins with ulcer and inflammation (Chronic) Leg edema, left (Chronic) Chronic venous insufficiency (Chronic) Lymphedema of left leg (Chronic) 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 She has a large irregular ulceration on the left lower extremity which is related to her venous disease. The patient has demonstrated slow but progressive improvement. The base of the ulceration appears generally pink and healthy, with a moderate amount of biofilm and bioburden. We are to continue leg elevation, avoidance of idle standing and sitting, compression by means of SurePress, active lifestyle, weight control measures,etc. She is to continue to take a well-balanced, nutritious diet. We are to continue with the use of Silvadene topically. This will be applied topically on a daily basis. The patient has recently been diagnosed with dementia. According to the patient's , her management in the home setting is becoming increasingly more difficult. Plan: As above. The patient will return in 2 weeks for reevaluation. We are to continue Silvadene topically. Her continuing improvement suggests that present measures are appropriate and providing the desired results. Current measures include leg elevation, avoidance of idle standing and sitting, activity as tolerated, weight control, and compression by means of SurePress, applied by the patient on a daily basis. She is to continue with the use of XtraSorb for moisture control. The ulceration continues to be exudative, and the patient has been encouraged to enhance the amount of time spent elevating her lower extremity, to help minimize the drainage. Patient is also to continue the use of Vasculera orally on a daily basis, which appears to have made significant improvement. Nutritional optimization has been recommended. We may consider the use of PuraPly in the near future, if preauthorized by the patient's insurance. Patient will return in 2 weeks for reassessment. Patient weight is 160 pounds. Patient is 5 feet 9 inches tall. BMI is 23.6. We have discussed weight loss issues, the patient does not require counseling, as her BMI is reasonable. The patient is not a smoker. Influenza vaccine was not administered.
[2018-08-02 12:30] VITALS: BP 148/82; PULSE 76; RESP 16; TEMP 36.3
--- NOTE | 2018-08-02 13:03 | PCM.WC.HP ---
(1) Chronic venous hypertension with inflammation involving left side Status: Chronic Current Visit: Yes Code(s): I87.322 - Chronic venous hypertension (idiopathic) with inflammation of left lower extremity (2) Left leg swelling Status: Chronic Current Visit: Yes Code(s): M79.89 - Other specified soft tissue disorders (3) Varicose veins with ulcer and inflammation Status: Chronic Current Visit: Yes Code(s): I83.209 - Varicose veins of unspecified lower extremity with both ulcer of unspecified site and inflammation; L97.909 - Non-pressure chronic ulcer of unspecified part of unspecified lower leg with unspecified severity (4) Leg edema, left Status: Chronic Current Visit: Yes Code(s): R60.0 - Localized edema (5) History of DVT (deep vein thrombosis) Status: Chronic Current Visit: No Code(s): Z86.718 - Personal history of other venous thrombosis and embolism Comment: left lower ext (6) Chronic venous insufficiency Status: Chronic Current Visit: Yes (7) Lymphedema of left leg Status: Chronic Current Visit: Yes Code(s): I89.0 - Lymphedema, not elsewhere classified (8) 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 Status: Chronic Current Visit: Yes Code(s): I87.039 - Postthrombotic syndrome with ulcer and inflammation of unspecified lower extremity (9) Calf ulcer Status: Chronic Current Visit: Yes Qualifiers: Laterality: left Non-pressure ulcer stage: with fat layer exposed Qualified Code(s): L97.222 - Non-pressure chronic ulcer of left calf with fat layer exposed Code(s): L97.209 - Non-pressure chronic ulcer of unspecified calf with unspecified severity (10) chronic left lower ext wound Status: Chronic Current Visit: Yes History of Present Illness Chief Complaint: Chronic venous insufficiency, chronic venous hypertension with inflammation and ulceration, varicose veins with inflammation and ulceration, post phlebitic syndrome with inflammation and ulceration,leg swelling, leg edema, lymphedema, venous stasis ulceration-left lower extremity History of Wound: This is a 78-year-old white female with a long-standing history of chronic venous disease and swelling in her left lower extremity. This has been present for many years. She has a large ulceration located between her left knee and ankle, which is quite large and irregular in shape, and also highly exudative. 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 She has also previously undergone successful endovenous laser ablation of the left great and small saphenous veins. Healing of the patient's left lower extremity ulceration has been slow, but progressive. A number of healing measures have been implemented in the past, without success. The patient is pleased with her current progress. We are currently using Silvadene topically and Xtrasorb for absorption of exudate. The patient's left calf ulceration continues to improve. It is smaller in size, with increasing areas of epithelialization, and diminishing dimensions of her left lower extremity ulceration. 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 (Chronic) chronic left lower ext wound (Chronic) Surgical History: appendectomy, hysterectomy Allergies/Adverse Reactions: Allergies Latex, Natural Rubber Allergy (Verified 07/12/13 11:34) Rash Sulfa (Sulfonamide Antibiotics) Allergy (Verified 07/12/13 11:34) Hives trimethoprim Allergy (Verified 07/12/13 11:34) Hives Home Medications: Ambulatory Orders Medication Instructions Recorded Aspirin [Aspirin, Baby] 81 mg PO DAILY@0800 07/12/13 Calcium Carb/Vitamin D [Os-Mo 1 tablet PO DAILY@0800 07/12/13 500MG + D] Clopidogrel Bisulfate [Plavix] 75 mg PO DAILY 07/12/13 Doxepin HCl [Sinequan] 100 mg PO BID 07/12/13 Doxycycline Monohydrate [Monodox] 100 mg PO BID 07/12/13 [place]-3 Fatty Acids/Fish Oil [Fish 1 each PO DAILY 07/12/13 Oil 1,000 mg Softgel] Vitamin B12 500 mg PO DAILY 07/12/13 Vitamin C 500 mg PO DAILY 07/12/13 proMETHazine soln (6.25mg/5mL) 5 ml PO Q4H PRN PRN 07/12/13 [Phenergan Plain] Prednisone [PredniSONE] 200 mg PO DAILY 07/03/14 Valacyclovir HCl [Valacyclovir] 500 mg PO DAILY 07/03/14 Smoking Status: Never smoker Tobacco Use: Non-smoker Review of Systems Constitutional: Denies: Chills, Fever, Weight Change Eyes: Denies: Pain, Vision Change HEENT: Denies: Difficulty Hearing, Difficulty Swallowing, Sinus Congestion Cardiovascular: Denies: Chest Pain, Palpitations Respiratory: Denies: Cough, Shortness of Breath Gastrointestinal: Denies: Diarrhea, Nausea, Vomiting Genitourinary: Denies: Dysuria, Hematuria Endocrine: Denies: Heat/ Cold Intolerance, Polydipsia, Polyuria Hematologic/ Lymphatic: Denies: Easy Bruising, Easy Bleeding - Physical Exam Vital Signs Temp Pulse Resp BP 97.3 F L 76 16 148/82 H 08/02/18 12:30 08/02/18 12:30 08/02/18 12:30 08/02/18 12:30 General: Alert, Oriented x3, Cooperative, No apparent distress, Well developed, Well nourished HEENT: Atraumatic, PERRLA, EOMI, Normocephalic Oral: Moist Mucosa Neck: No JVD Lungs: Normal air movement Abdomen: Non-Distended Extremities: No clubbing, No cyanosis, No Calf Tenderness, - - Swelling and edema persist in the left lower extremity, most notable on the dorsum of the left foot. This has been chronic in nature. The ulceration of the left calf is highly irregular in shape. Dimensions are documented elsewhere. There is a moderate amount of bioburden. There is no sign of infection or cellulitis. Skin: No rashes Wound Measurements and Assessment - Nurse 1 - General Ulcer Measurement Start: 07/19/18 12:31 Freq: Status: Active Protocol: Activity Type Activity Date Activity User E-Sign Co-Sign Detail Recorded Client Recorded Date Recorded By Document 08/02/18 12:30 [id number] 08/02/18 12:37 08/02/18 12:30 Wound Center Nurse 1 [Ulcer Assessment] #3 Medial LLE -Combined with other wound No -Current Size (cm) - Length 10.4 -Current Size (cm) - Width 6.7 -Current Size (cm) - Depth 0.1 -Total Square Cm 69.68 -Photo Taken No -Epithelialization None Present -Tunneling No -Undermining/Tunneling No -Circular Undermining No -Exudate Amt Large (67-100%) -Exudate Type Yellow/Green -Wound Margin Distinct, Outline Attached -Granulation Amt Medium (34-66%) -Granulation Quality [place] Red -Slough/Fibrin Yes -Necrosis Amt None Present (0 %) -Necrotic Tissue Type Adherent Slough -Structure Exposed None/Limited to Skin Breakdown -Texture (Nahomy-wound Skin Appearance) Friable Scarring -Moisture (Nahomy-wound Skin Appearance Weeping ) -Color (Nahomy-wound Skin Appearance) Assessed Erythema -Temperature (Nahomy-wound Skin No Abnormality Appearance) (Pt Warm) -Tenderness on Palpation (Nahomy-wound Yes Skin Appearance) -Ulcer Cleansing Wound Cleanser -Foul Odor after Cleansing No -Anesthetic Used 4% Lidocaine Solution #4 Lateral LLE -Combined with other wound No -Current Size (cm) - Length 13.7 -Current Size (cm) - Width 14.6 -Current Size (cm) - Depth 0.2 -Total Square Cm 200.02 -Photo Taken No -Epithelialization None Present -Tunneling No -Undermining/Tunneling No -Circular Undermining No -Exudate Amt Large (67-100%) -Exudate Type Yellow/Green -Wound Margin Distinct, Outline Attached -Granulation Amt Medium (34-66%) -Granulation Quality [place] Red -Slough/Fibrin Yes -Necrosis Amt None Present (0 %) -Necrotic Tissue Type Adherent Slough -Structure Exposed None/Limited to Skin Breakdown -Texture (Nahomy-wound Skin Appearance) Friable Scarring -Moisture (Nahomy-wound Skin Appearance Weeping ) -Color (Nahomy-wound Skin Appearance) Assessed Erythema -Temperature (Nahomy-wound Skin No Abnormality Appearance) (Pt Warm) -Tenderness on Palpation (Nahomy-wound Yes Skin Appearance) -Ulcer Cleansing Wound Cleanser -Foul Odor after Cleansing No -Anesthetic Used 4% Lidocaine Solution [Edema Assessment] -Lower Limb Edema Present Yes -Left Calf (cm) 36 -Left Ankle (cm) 26.8 WC - Nurse 2 - General Ulcer CM Notes Start: 07/19/18 12:31 Freq: Status: Active Protocol: Activity Type Activity Date Activity User E-Sign Co-Sign Detail Recorded Client Recorded Date Recorded By Document 08/02/18 12:44 [id number] 08/02/18 12:49 08/02/18 12:44 Wound Center Nurse 2 [Procedure/Treatment] #3 Medial LLE -Time 12:44 -Correct Patient Yes -Correct Side, Site, Position Yes -Correct Procedure Yes -Procedure Performed Yes -Type of Procedure Debridement -Clinical Debridement Subcutaneous -Post Debridement Size (cm) - Length 10.4 -Post Debridement Size (cm) - Width 6.7 -Post Debridement Size (cm) - Depth 0.1 -Total Square Cm 69.68 -Wound/Ulcer Outcome Not Healed -Ulcer Cleansing Not Cleansed -Foul Odor after Cleansing No -Bioengineered Tissue No -Bleeding Controlled with NA -Treatment Response Procedure Tolerated Well #4 Lateral LLE -Time 12:44 -Correct Patient Yes -Correct Side, Site, Position Yes -Correct Procedure Yes -Procedure Performed Yes -Type of Procedure Debridement -Clinical Debridement Subcutaneous -Post Debridement Size (cm) - Length 13.7 -Post Debridement Size (cm) - Width 14.6 -Post Debridement Size (cm) - Depth 0.2 -Total Square Cm 200.02 -Wound/Ulcer Outcome Not Healed -Ulcer Cleansing Not Cleansed -Foul Odor after Cleansing No -Bioengineered Tissue No -Bleeding Controlled with Pressure -Treatment Response Procedure Tolerated Well [See Physician Procedure note for Specifics] Pain Scale: 0-10 Numeric [Pain] -Is Patient Pain Free? No Musculoskeletal: No Muscle Wasting Neurological: Cranial nerves II-XII grossly intact, Neuro grossly intact Psych/Mental Status: Normal Affect, Appropriate, Alert and oriented to time, place, person, mood and affect Debridement Note Post-Debridement Measurements/Treatment WC - Nurse 2 - General Ulcer CM Notes Start: 07/19/18 12:31 Freq: Status: Active Protocol: Activity Type Activity Date Activity User E-Sign Co-Sign Detail Recorded Client Recorded Date Recorded By Document 07/19/18 12:35 [id number] 07/19/18 13:13 JS Document 08/02/18 12:44 [id number] 08/02/18 12:49 07/19/18 08/02/18 12:35 12:44 Pain Scale: 0-10 Numeric Is Patient Pain Free? No Wound Center Nurse 2 #3 Medial LLE -Time 12:58 12:44 -Correct Patient Yes Yes -Correct Side, Site, Position Yes Yes -Correct Procedure Yes Yes -Procedure Performed Yes Yes -Type of Procedure Debridement Debridement -Clinical Debridement Subcutaneous Subcutaneous -Post Debridement Size (cm) - Length 10.6 10.4 -Post Debridement Size (cm) - Width 6.5 6.7 -Post Debridement Size (cm) - Depth 0.2 0.1 -Total Square Cm 68.90 69.68 -Wound/Ulcer Outcome Not Healed Not Healed -Ulcer Cleansing Rinsed/ Not Cleansed Irrigated with Saline -Foul Odor after Cleansing No No -Bioengineered Tissue No No -Topical Lidocaine (%) 4 -Lidocaine (ml) 15 -Bleeding Controlled with NA NA -Treatment Response Procedure Procedure Tolerated Well Tolerated Well #4 Lateral LLE -Time 12:58 12:44 -Correct Patient Yes Yes -Correct Side, Site, Position Yes Yes -Correct Procedure Yes Yes -Procedure Performed Yes Yes -Type of Procedure Debridement Debridement -Clinical Debridement Subcutaneous Subcutaneous -Post Debridement Size (cm) - Length 14.1 13.7 -Post Debridement Size (cm) - Width 12 14.6 -Post Debridement Size (cm) - Depth 0.2 0.2 -Total Square Cm 169.2 200.02 -Wound/Ulcer Outcome Not Healed Not Healed -Ulcer Cleansing Rinsed/ Not Cleansed Irrigated with Saline -Foul Odor after Cleansing No No -Bioengineered Tissue No No -Topical Lidocaine (%) 4 -Lidocaine (ml) 15 -Bleeding Controlled with NA Pressure -Treatment Response Procedure Procedure Tolerated Well Tolerated Well Laterality: Left - Calf Type of Debridement: Excisional debridement Anesthesia Used: 4% Lidocaine Solution Depth: Down to and including healthy tissue, in the subcutaneous layer Percentage of wound debrided: 100 Instrument Used: 7mm curette Severity: Fat Layer Exposed Amount of bleeding with debridement: Mild Bleeding Controlled with: Compression and gauze Patient tolerated procedure well Assessment/Plan Active Problems Chronic venous hypertension with inflammation involving left side (Chronic) Left leg swelling (Chronic) Varicose veins with ulcer and inflammation (Chronic) Leg edema, left (Chronic) Chronic venous insufficiency (Chronic) Lymphedema of left leg (Chronic) 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 She has a large irregular ulceration on the left lower extremity which is related to her venous disease. The patient has demonstrated slow but progressive improvement. The base of the ulceration appears generally pink and healthy, with a moderate amount of biofilm and bioburden. We are to continue leg elevation, avoidance of idle standing and sitting, compression by means of SurePress, active lifestyle, weight control measures,etc. She is to continue to take a well-balanced, nutritious diet. We are to continue with the use of Silvadene topically. This will be applied topically on a daily basis. The patient has recently been diagnosed with dementia. According to the patient's , her management in the home setting is becoming increasingly more difficult. Plan: As above. The patient will return in 2 weeks for reevaluation. We are to continue Silvadene topically. Her continuing improvement suggests that present measures are appropriate and providing the desired results. Current measures include leg elevation, avoidance of idle standing and sitting, activity as tolerated, weight control, and compression by means of SurePress, applied by the patient on a daily basis. She is to continue with the use of XtraSorb for moisture control. The ulceration continues to be exudative, and the patient has been encouraged to enhance the amount of time spent elevating her lower extremity, to help minimize the drainage. Patient is also to continue the use of Vasculera orally on a daily basis, which appears to have made significant improvement. Nutritional optimization has been recommended. We may consider the use of PuraPly in the near future, if preauthorized by the patient's insurance. Patient will return in 2 weeks for reassessment. Patient weight is 160 pounds. Patient is 5 feet 9 inches tall. BMI is 23.6. We have discussed weight loss issues, the patient does not require counseling, as her BMI is reasonable. The patient is not a smoker. Influenza vaccine was not administered.
== END 2018-08-11 23:59 ==
LOC: WC 12:30
PROVIDERS: Visit Provider Surgery
DX: I83.222 Varicose veins of left lower extremity with both ulcer of calf and inflammation (principal); L97.222 Non-pressure chronic ulcer of left calf with fat layer exposed; R60.0 Localized edema; M79.89 Other specified soft tissue disorders; Z86.718 Personal history of other venous thrombosis and embolism; I89.0 Lymphedema, not elsewhere classified; Z79.899 Other long term (current) drug therapy; Z79.02 Long term (current) use of antithrombotics/antiplatelets; Z79.82 Long term (current) use of aspirin; Z79.52 Long term (current) use of systemic steroids
CPT/HCPCS: 11042; 11045

== ENCOUNTER 2018-08-30 12:30 | Outpatient (RCR) | payer MEDICARE, BC, SELFPAY ==
[2018-08-12 00:45] VITALS: BP 148/82; PULSE 76; RESP 16; TEMP 36.3
[2018-08-16 12:58] VITALS: BP 166/84; PULSE 98; RESP 18; TEMP 36.9
--- NOTE | 2018-08-16 13:10 | PCM.WC.HP ---
(1) Chronic venous hypertension with inflammation involving left side Status: Chronic Current Visit: Yes Code(s): I87.322 - Chronic venous hypertension (idiopathic) with inflammation of left lower extremity (2) Left leg swelling Status: Chronic Current Visit: Yes Code(s): M79.89 - Other specified soft tissue disorders (3) Varicose veins with ulcer and inflammation Status: Chronic Current Visit: Yes Code(s): I83.209 - Varicose veins of unspecified lower extremity with both ulcer of unspecified site and inflammation; L97.909 - Non-pressure chronic ulcer of unspecified part of unspecified lower leg with unspecified severity (4) Leg edema, left Status: Chronic Current Visit: Yes Code(s): R60.0 - Localized edema (5) May-Thurner syndrome Status: Resolved Current Visit: No Code(s): I87.1 - Compression of vein (6) History of DVT (deep vein thrombosis) Status: Chronic Current Visit: No Code(s): Z86.718 - Personal history of other venous thrombosis and embolism Comment: left lower ext (7) Chronic venous insufficiency Status: Chronic Current Visit: Yes (8) Lymphedema of left leg Status: Chronic Current Visit: Yes Code(s): I89.0 - Lymphedema, not elsewhere classified (9) 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 Status: Chronic Current Visit: Yes Code(s): I87.039 - Postthrombotic syndrome with ulcer and inflammation of unspecified lower extremity (10) Calf ulcer Status: Chronic Current Visit: Yes Qualifiers: Laterality: left Non-pressure ulcer stage: with fat layer exposed Qualified Code(s): L97.222 - Non-pressure chronic ulcer of left calf with fat layer exposed Code(s): L97.209 - Non-pressure chronic ulcer of unspecified calf with unspecified severity (11) chronic left lower ext wound Status: Chronic Current Visit: Yes History of Present Illness Chief Complaint: Chronic venous insufficiency, chronic venous hypertension with inflammation and ulceration, varicose veins with inflammation and ulceration, post phlebitic syndrome with inflammation and ulceration,leg swelling, leg edema, lymphedema, venous stasis ulceration-left lower extremity History of Wound: This is a 78-year-old white female with a long-standing history of chronic venous disease and swelling in her left lower extremity. This has been present for many years. She has a large ulceration located between her left knee and ankle, which is quite large and irregular in shape, and also highly exudative. 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 She has also previously undergone successful endovenous laser ablation of the left great and small saphenous veins. Healing of the patient's left lower extremity ulceration has been slow, but progressive. A number of healing measures have been implemented in the past, without success. We are currently using Silvadene topically and Xtrasorb for absorption of exudate. 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 (Chronic) chronic left lower ext wound (Chronic) Surgical History: appendectomy, hysterectomy Allergies/Adverse Reactions: Allergies Latex, Natural Rubber Allergy (Verified 07/12/13 11:34) Rash Sulfa (Sulfonamide Antibiotics) Allergy (Verified 07/12/13 11:34) Hives trimethoprim Allergy (Verified 07/12/13 11:34) Hives Home Medications: Ambulatory Orders Medication Instructions Recorded Aspirin [Aspirin, Baby] 81 mg PO DAILY@0800 07/12/13 Calcium Carb/Vitamin D [Os-Mo 1 tablet PO DAILY@0800 07/12/13 500MG + D] Clopidogrel Bisulfate [Plavix] 75 mg PO DAILY 07/12/13 Doxepin HCl [Sinequan] 100 mg PO BID 07/12/13 Doxycycline Monohydrate [Monodox] 100 mg PO BID 07/12/13 [place]-3 Fatty Acids/Fish Oil [Fish 1 each PO DAILY 07/12/13 Oil 1,000 mg Softgel] Vitamin B12 500 mg PO DAILY 07/12/13 Vitamin C 500 mg PO DAILY 07/12/13 proMETHazine soln (6.25mg/5mL) 5 ml PO Q4H PRN PRN 07/12/13 [Phenergan Plain] Prednisone [PredniSONE] 200 mg PO DAILY 07/03/14 Valacyclovir HCl [Valacyclovir] 500 mg PO DAILY 07/03/14 Smoking Status: Never smoker Tobacco Use: Non-smoker Review of Systems Constitutional: Denies: Chills, Fever, Weight Change Eyes: Denies: Pain, Vision Change HEENT: Denies: Difficulty Hearing, Difficulty Swallowing, Sinus Congestion Cardiovascular: Denies: Chest Pain, Palpitations Respiratory: Denies: Cough, Shortness of Breath Gastrointestinal: Denies: Diarrhea, Nausea, Vomiting Genitourinary: Denies: Dysuria, Hematuria Endocrine: Denies: Heat/ Cold Intolerance, Polydipsia, Polyuria Hematologic/ Lymphatic: Denies: Easy Bruising, Easy Bleeding - Physical Exam Vital Signs Temp Pulse Resp BP 98.4 F 98 18 166/84 H 08/16/18 12:58 08/16/18 12:58 08/16/18 12:58 08/16/18 12:58 General: Alert, Oriented x3, Cooperative, No apparent distress, Well developed, Well nourished HEENT: Atraumatic, PERRLA, EOMI, Normocephalic Oral: Moist Mucosa Neck: No JVD Lungs: Normal air movement Abdomen: Non-Distended Extremities: No clubbing, No cyanosis, No edema, No Calf Tenderness, Edema, - - Edema persist in the left lower extremity, most notable on the dorsum of the left foot. There are increasing amounts of bioburden and nonviable tissue at the surface of the ulceration in the left lower extremity. There appears to have been loss of epithelialized tissue within the ulceration. Green drainage was noted on the patient's ulcer dressings. Skin: No rashes Wound Measurements and Assessment WC - Nurse 1 - General Ulcer Measurement Start: 08/16/18 12:44 Freq: Status: Active Protocol: Activity Type Activity Date Activity User E-Sign Co-Sign Detail Recorded Client Recorded Date Recorded By Document 08/16/18 12:44 DV [id number] 08/16/18 12:57 DV 08/16/18 12:44 Wound Center Nurse 1 [Ulcer Assessment] #5 LLE- Circumfrential -Combined with other wound No -Current Size (cm) - Length 13.5 -Current Size (cm) - Width 26.5 -Current Size (cm) - Depth 0.3 -Total Square Cm 357.75 -Photo Taken Yes -Epithelialization Large 67-100% -Tunneling No -Undermining/Tunneling No -Circular Undermining No -Classification - Thickness Full Thickness without Exposed Support Structure -Exudate Amt Large (67-100%) -Exudate Type Yellow/Green -Wound Margin Distinct, Outline Attached -Granulation Amt Small (1-33%) -Granulation Quality N/A -Slough/Fibrin Yes -Necrosis Amt Large (67-100%) -Necrotic Tissue Type Adherent Slough -Structure Exposed None/Limited to Skin Breakdown -Texture (Nahomy-wound Skin Appearance) Assessed Localized Edema -Moisture (Nahomy-wound Skin Appearance Assessed ) Weeping -Color (Nahomy-wound Skin Appearance) Assessed Erythema -Temperature (Nahomy-wound Skin No Abnormality Appearance) (Pt Warm) -Ulcer Cleansing Rinsed/ Irrigated with Saline -Foul Odor after Cleansing No -Anesthetic Used 4% Lidocaine Solution #3 Medial LLE -Combined with other wound No -Current Size (cm) - Length 0.1 -Current Size (cm) - Width 0.1 -Current Size (cm) - Depth 0.1 -Total Square Cm 0.01 #4 Lateral LLE -Combined with other wound No -Current Size (cm) - Length 0.1 -Current Size (cm) - Width 0.1 -Current Size (cm) - Depth 0.1 -Total Square Cm 0.01 [Edema Assessment] -Lower Limb Edema Present Yes -Left Calf (cm) 40.0 -Left Ankle (cm) 25.5 Neurological: Cranial nerves II-XII grossly intact, Neuro grossly intact Psych/Mental Status: Normal Affect, Appropriate, Alert and oriented to time, place, person, mood and affect Debridement Note Laterality: Left - Calf Type of Debridement: Excisional debridement Anesthesia Used: 5% Lidocaine Gel Depth: Down to and including healthy tissue, in the subcutaneous layer Percentage of wound debrided: 100 Instrument Used: 3mm curette Severity: Fat Layer Exposed Amount of bleeding with debridement: Mild Bleeding Controlled with: Compression and gauze Patient tolerated procedure well Assessment/Plan Active Problems Chronic venous hypertension with inflammation involving left side (Chronic) Left leg swelling (Chronic) Varicose veins with ulcer and inflammation (Chronic) Leg edema, left (Chronic) Chronic venous insufficiency (Chronic) Lymphedema of left leg (Chronic) 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 She has a large irregular ulceration on the left lower extremity which is related to her venous disease. The patient has demonstrated slow but progressive improvement. The ulceration appears to be somewhat larger, with loss of epithelialized areas, and evidence of enhanced drainage from the ulceration, which is green in color. We are to continue leg elevation, avoidance of idle standing and sitting, compression by means of SurePress, active lifestyle, weight control measures,etc. She is to continue to take a well-balanced, nutritious diet. We are to continue with the use of Silvadene topically. This will be applied topically on a daily basis. Because of apparent deterioration of the patient's ulceration, and enhanced drainage which is green, swab cultures have been obtained for aerobic and anaerobic culture. The suspicion is that infection may be present, with Pseudomonas species. The patient has recently been diagnosed with dementia. According to the patient's , her management in the home setting is becoming increasingly more difficult. Plan: As above. The patient will return in 2 weeks for reevaluation. We are to continue Silvadene topically. Compression will be continued by means of SurePress which will be applied daily. We will await the results of cultures, obtained today. Appropriate antibiotic recommendations will be based upon the results of cultures. Current measures include leg elevation, avoidance of idle standing and sitting, activity as tolerated, weight control, and compression by means of SurePress, applied by the patient on a daily basis. She is to continue with the use of XtraSorb for moisture control. The ulceration continues to be exudative, and the patient has been encouraged to enhance the amount of time spent elevating her lower extremity, to help minimize the drainage. It appears as though the patient has been relatively noncompliant with recommendations for leg elevation, and she has been noncompliant with compression pumps as well. Patient is to continue the use of Vasculera orally on a daily basis. Nutritional optimization has been recommended. We may consider the use of PuraPly in the near future, if preauthorized by the patient's insurance. Patient will return in 2 weeks for reassessment. Patient weight is 160 pounds. Patient is 5 feet 9 inches tall. BMI is 23.6. We have discussed weight loss issues, the patient does not require counseling, as her BMI is reasonable. The patient is not a smoker. Influenza vaccine was not administered.
--- NOTE | 2018-08-26 11:23 | WC ---
Addendum entered by Shaun Esposito 08/26/18 11:43: Contacted to regarding Rx. Would like to wait to pick-up till after seeing Dr. Pittman on Thursday. Reports wound does not look bad at this time. No odor, or redness. Call to pharmacy made, cancelling Rx. If Rx is to be filled, it should be called to the [facility] located on [address] in [place], [place] Original Note: Positive cultures: Rx for DURICEF i GM p.o. bid times [address] Moise Pittman. Rx called into [facility]; [facility] in [place], [place]. Attempted to notify patient, unable to get through via phone. Pharmacist said they will call patient when Rx is ready.
--- NOTE | 2018-08-30 13:07 | HP.PCM_ITS ---
(1) Chronic venous hypertension with inflammation involving left side Status: Chronic Current Visit: Yes Code(s): I87.322 - Chronic venous hypertension (idiopathic) with inflammation of left lower extremity (2) Left leg swelling Status: Chronic Current Visit: Yes Code(s): M79.89 - Other specified soft tissue disorders (3) Varicose veins with ulcer and inflammation Status: Chronic Current Visit: Yes Code(s): I83.209 - Varicose veins of unspecified lower extremity with both ulcer of unspecified site and inflammation; L97.909 - Non-pressure chronic ulcer of unspecified part of unspecified lower leg with unspecified severity (4) Leg edema, left Status: Chronic Current Visit: Yes Code(s): R60.0 - Localized edema (5) History of DVT (deep vein thrombosis) Status: Chronic Current Visit: No Code(s): Z86.718 - Personal history of other venous thrombosis and embolism Comment: left lower ext (6) Chronic venous insufficiency Status: Chronic Current Visit: Yes (7) Lymphedema of left leg Status: Chronic Current Visit: Yes Code(s): I89.0 - Lymphedema, not elsewhere classified (8) 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 Status: Chronic Current Visit: Yes Code(s): I87.039 - Postthrombotic syndrome with ulcer and inflammation of unspecified lower extremity (9) Calf ulcer Status: Chronic Current Visit: Yes Qualifiers: Laterality: left Non-pressure ulcer stage: with fat layer exposed Qualified Code(s): L97.222 - Non-pressure chronic ulcer of left calf with fat layer exposed Code(s): L97.209 - Non-pressure chronic ulcer of unspecified calf with unspecified severity (10) chronic left lower ext wound Status: Chronic Current Visit: Yes History of Present Illness Chief Complaint: Chronic venous insufficiency, chronic venous hypertension with inflammation and ulceration, varicose veins with inflammation and ulceration, post phlebitic syndrome with inflammation and ulceration,leg swelling, leg edema, lymphedema, venous stasis ulceration-left lower extremity History of Wound: This is a 78-year-old white female with a long-standing history of chronic venous disease and swelling in her left lower extremity. This has been present for many years. She has a large ulceration located between her left knee and ankle, which is quite large and irregular in shape, and also highly exudative. 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 She has also previously undergone successful endovenous laser ablation of the left great and small saphenous veins. Healing of the patient's left lower extremity ulceration has been slow, but progressive. A number of healing measures have been implemented in the past, without success. We are currently using Silvadene topically and Xtrasorb for absorption of exudate. 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 (Chronic) chronic left lower ext wound (Chronic) Surgical History: appendectomy, hysterectomy Allergies/Adverse Reactions: Allergies Latex, Natural Rubber Allergy (Verified 07/12/13 11:34) Rash Sulfa (Sulfonamide Antibiotics) Allergy (Verified 07/12/13 11:34) Hives trimethoprim Allergy (Verified 07/12/13 11:34) Hives Home Medications: Ambulatory Orders Medication Instructions Recorded Aspirin [Aspirin, Baby] 81 mg PO DAILY@0800 07/12/13 Calcium Carb/Vitamin D [Os-Mo 1 tablet PO DAILY@0800 07/12/13 500MG + D] Clopidogrel Bisulfate [Plavix] 75 mg PO DAILY 07/12/13 Doxepin HCl [Sinequan] 100 mg PO BID 07/12/13 Doxycycline Monohydrate [Monodox] 100 mg PO BID 07/12/13 [place]-3 Fatty Acids/Fish Oil [Fish 1 each PO DAILY 07/12/13 Oil 1,000 mg Softgel] Vitamin B12 500 mg PO DAILY 07/12/13 Vitamin C 500 mg PO DAILY 07/12/13 proMETHazine soln (6.25mg/5mL) 5 ml PO Q4H PRN PRN 07/12/13 [Phenergan Plain] Prednisone [PredniSONE] 200 mg PO DAILY 07/03/14 Valacyclovir HCl [Valacyclovir] 500 mg PO DAILY 07/03/14 Smoking Status: Never smoker Tobacco Use: Non-smoker Review of Systems Constitutional: Denies: Chills, Fever, Weight Change Eyes: Denies: Pain, Vision Change HEENT: Denies: Difficulty Hearing, Difficulty Swallowing, Sinus Congestion Cardiovascular: Denies: Chest Pain, Palpitations Respiratory: Denies: Cough, Shortness of Breath Gastrointestinal: Denies: Diarrhea, Nausea, Vomiting Genitourinary: Denies: Dysuria, Hematuria Endocrine: Denies: Heat/ Cold Intolerance, Polydipsia, Polyuria Hematologic/ Lymphatic: Denies: Easy Bruising, Easy Bleeding - Physical Exam Vital Signs Temp Pulse Resp BP 98.4 F 98 18 166/84 H 08/16/18 12:58 08/16/18 12:58 08/16/18 12:58 08/16/18 12:58 General: Alert, Oriented x3, Cooperative, No apparent distress, Well developed, Well nourished HEENT: Atraumatic, PERRLA, EOMI, Normocephalic Oral: Moist Mucosa Neck: No JVD Lungs: Normal air movement Abdomen: Non-Distended Extremities: No clubbing, No cyanosis, No Calf Tenderness, - - Swelling and edema persist in the patient's left lower extremity. This is most notable on the dorsum of the left foot. It has been chronic in nature. The ulceration of the left calf persists as well. Dimensions are documented elsewhere. There is a moderate amount of bioburden. Some drainage is noted on the patient's d ressings. Limb circumferences are documented elsewhere. Neurological: Cranial nerves II-XII grossly intact, Neuro grossly intact Psych/Mental Status: Normal Affect, Appropriate, Alert and oriented to time, place, person, mood and affect Debridement Note Post-Debridement Measurements/Treatment WC - Nurse 2 - General Ulcer CM Notes Start: 08/16/18 12:44 Freq: Status: Active Protocol: Activity Type Activity Date Activity User E-Sign Co-Sign Detail Recorded Client Recorded Date Recorded By Document 08/16/18 13:02 CARLOS [id number] 08/16/18 13:11 CARLOS 08/16/18 13:02 Wound Center Nurse 2 #5 LLE- Circumfrential -Time 13:09 -Correct Patient Yes -Correct Side, Site, Position Yes -Correct Procedure Yes -Procedure Performed Yes -Type of Procedure Debridement -Clinical Debridement Subcutaneous -Post Debridement Size (cm) - Length 13.3 -Post Debridement Size (cm) - Width 24.0 -Post Debridement Size (cm) - Depth 0.2 -Total Square Cm 319.20 -Wound/Ulcer Outcome Not Healed -Ulcer Cleansing Rinsed/ Irrigated with Saline -Foul Odor after Cleansing No -Bioengineered Tissue No -Topical Lidocaine (%) 4 -Lidocaine (ml) 20 -Bleeding Controlled with NA -Treatment Response Procedure Tolerated Well #3 Medial LLE -Time 13:09 -Post Debridement Size (cm) - Length 0 -Post Debridement Size (cm) - Width 0 -Post Debridement Size (cm) - Depth 0 -Total Square Cm 0 -Wound/Ulcer Outcome Converted #4 Lateral LLE -Time 13:10 -Correct Patient Yes -Correct Side, Site, Position Yes -Correct Procedure Yes -Procedure Performed No -Post Debridement Size (cm) - Length 0 -Post Debridement Size (cm) - Width 0 -Post Debridement Size (cm) - Depth 0 -Total Square Cm 0 -Wound/Ulcer Outcome Converted Pain Scale: 0-10 Numeric Is Patient Pain Free? Yes Laterality: Left - Calf Type of Debridement: Excisional debridement Anesthesia Used: 5% Lidocaine Gel Depth: Down to and including healthy tissue, in the subcutaneous layer Percentage of wound debrided: 100 Instrument Used: 5mm curette Severity: Fat Layer Exposed Amount of bleeding with debridement: Mild Bleeding Controlled with: Compression and gauze Patient tolerated procedure well Assessment/Plan Active Problems Chronic venous hypertension with inflammation involving left side (Chronic) Left leg swelling (Chronic) Varicose veins with ulcer and inflammation (Chronic) Leg edema, left (Chronic) Chronic venous insufficiency (Chronic) Lymphedema of left leg (Chronic) 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 She has a large irregular ulceration on the left lower extremity which is related to her venous disease. The patient has demonstrated slow but progressive improvement. The ulceration appears to be somewhat larger, with loss of epithelialized areas, and evidence of enhanced drainage from the ulceration, which is green in color. We are to continue leg elevation, avoidance of idle standing and sitting, compression by means of SurePress, active lifestyle, weight control measures,etc. She is to continue to take a well-balanced, nutritious diet. We are to continue with the use of Silvadene topically. This will be applied topically on a daily basis. Because of apparent deterioration of the patient's ulceration, and enhanced drainage which is green, swab cultures have been obtained for aerobic and anaerobic culture. The suspicion is that infection may be present, with Pseudomonas species. The patient has recently been diagnosed with dementia. According to the patient's , her management in the home setting is becoming increasingly more difficult. Recent cultures have been positive for Staphylococcus aureus. A prescription was provided for Duricef 1 g p.o. twice daily for a total of 7 days. However, unfortunately, the patient and her family have failed to fill the prescription, and the antibiotic has not yet been started. The patient has been urged to start the medication as prescribed. Plan: As above. The patient will return in 2 weeks for reevaluation. We are to continue Silvadene topically. Compression will be continued by means of SurePress which will be applied daily. We will await the results of cultures, obtained today. Appropriate antibiotic recommendations will be based upon the results of cultures. Current measures include leg elevation, avoidance of idle standing and sitting, activity as tolerated, weight control, and compression by means of SurePress, applied by the patient on a daily basis. She is to continue with the use of XtraSorb for moisture control. The ulceration continues to be exudative, and the patient has been encouraged to enhance the amount of time spent elevating her lower extremity, to help minimize the drainage. It appears as though the patient has been relatively noncompliant with recommendations for leg elevation, and she has been noncompliant with compression pumps as well. Patient is to continue the use of Vasculera orally on a daily basis. Nutritional optimization has been recommended. We may consider the use of PuraPly in the near future, if preauthorized by the patient's insurance. Patient will return in 2 weeks for reassessment. Patient has been advised to implement the oral antibiotic which was prescribed as a result of recent positive culture for Staphylococcus aureus. Duricef 1 g twice daily for 7 days was prescribed. Patient weight is 160 pounds. Patient is 5 feet 9 inches tall. BMI is 23.6. We have discussed weight loss issues, the patient does not require counseling, as her BMI is reasonable. The patient is not a smoker. Influenza vaccine was not administered.
[2018-08-30 13:13] VITALS: BP 140/75; PULSE 66; RESP 18; TEMP 37
--- NOTE | 2018-08-30 13:19 | HP.PCM_ITS ---
(1) Chronic venous hypertension with inflammation involving left side Status: Chronic Current Visit: Yes Code(s): I87.322 - Chronic venous hypertension (idiopathic) with inflammation of left lower extremity (2) Left leg swelling Status: Chronic Current Visit: Yes Code(s): M79.89 - Other specified soft tissue disorders (3) Varicose veins with ulcer and inflammation Status: Chronic Current Visit: Yes Code(s): I83.209 - Varicose veins of unspecified lower extremity with both ulcer of unspecified site and inflammation; L97.909 - Non-pressure chronic ulcer of unspecified part of unspecified lower leg with unspecified severity (4) Leg edema, left Status: Chronic Current Visit: Yes Code(s): R60.0 - Localized edema (5) History of DVT (deep vein thrombosis) Status: Chronic Current Visit: No Code(s): Z86.718 - Personal history of other venous thrombosis and embolism Comment: left lower ext (6) Chronic venous insufficiency Status: Chronic Current Visit: Yes (7) Lymphedema of left leg Status: Chronic Current Visit: Yes Code(s): I89.0 - Lymphedema, not elsewhere classified (8) 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 Status: Chronic Current Visit: Yes Code(s): I87.039 - Postthrombotic syndrome with ulcer and inflammation of unspecified lower extremity (9) Calf ulcer Status: Chronic Current Visit: Yes Qualifiers: Laterality: left Non-pressure ulcer stage: with fat layer exposed Qualified Code(s): L97.222 - Non-pressure chronic ulcer of left calf with fat layer exposed Code(s): L97.209 - Non-pressure chronic ulcer of unspecified calf with unspecified severity (10) chronic left lower ext wound Status: Chronic Current Visit: Yes History of Present Illness Chief Complaint: Chronic venous insufficiency, chronic venous hypertension with inflammation and ulceration, varicose veins with inflammation and ulceration, post phlebitic syndrome with inflammation and ulceration,leg swelling, leg edema, lymphedema, venous stasis ulceration-left lower extremity History of Wound: This is a 78-year-old white female with a long-standing history of chronic venous disease and swelling in her left lower extremity. This has been present for many years. She has a large ulceration located between her left knee and ankle, which is quite large and irregular in shape, and also highly exudative. 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 She has also previously undergone successful endovenous laser ablation of the left great and small saphenous veins. Healing of the patient's left lower extremity ulceration has been slow, but progressive. A number of healing measures have been implemented in the past, without success. We are currently using Silvadene topically and Xtrasorb for absorption of exudate. 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 (Chronic) chronic left lower ext wound (Chronic) Surgical History: appendectomy, hysterectomy Allergies/Adverse Reactions: Allergies Latex, Natural Rubber Allergy (Verified 07/12/13 11:34) Rash Sulfa (Sulfonamide Antibiotics) Allergy (Verified 07/12/13 11:34) Hives trimethoprim Allergy (Verified 07/12/13 11:34) Hives Home Medications: Ambulatory Orders Medication Instructions Recorded Aspirin [Aspirin, Baby] 81 mg PO DAILY@0800 07/12/13 Calcium Carb/Vitamin D [Os-Mo 1 tablet PO DAILY@0800 07/12/13 500MG + D] Clopidogrel Bisulfate [Plavix] 75 mg PO DAILY 07/12/13 Doxepin HCl [Sinequan] 100 mg PO BID 07/12/13 Doxycycline Monohydrate [Monodox] 100 mg PO BID 07/12/13 [place]-3 Fatty Acids/Fish Oil [Fish 1 each PO DAILY 07/12/13 Oil 1,000 mg Softgel] Vitamin B12 500 mg PO DAILY 07/12/13 Vitamin C 500 mg PO DAILY 07/12/13 proMETHazine soln (6.25mg/5mL) 5 ml PO Q4H PRN PRN 07/12/13 [Phenergan Plain] Prednisone [PredniSONE] 200 mg PO DAILY 07/03/14 Valacyclovir HCl [Valacyclovir] 500 mg PO DAILY 07/03/14 Smoking Status: Never smoker Tobacco Use: Non-smoker - Physical Exam Vital Signs Temp Pulse Resp BP 98.4 F 98 18 166/84 H 08/16/18 12:58 08/16/18 12:58 08/16/18 12:58 08/16/18 12:58 Debridement Note Post-Debridement Measurements/Treatment WC - Nurse 2 - General Ulcer CM Notes Start: 08/16/18 12:44 Freq: Status: Active Protocol: Activity Type Activity Date Activity User E-Sign Co-Sign Detail Recorded Client Recorded Date Recorded By Document 08/16/18 13:02 [id number] 08/16/18 13:11 CARLOS 08/16/18 13:02 Wound Center Nurse 2 #5 LLE- Circumfrential -Time 13:09 -Correct Patient Yes -Correct Side, Site, Position Yes -Correct Procedure Yes -Procedure Performed Yes -Type of Procedure Debridement -Clinical Debridement Subcutaneous -Post Debridement Size (cm) - Length 13.3 -Post Debridement Size (cm) - Width 24.0 -Post Debridement Size (cm) - Depth 0.2 -Total Square Cm 319.20 -Wound/Ulcer Outcome Not Healed -Ulcer Cleansing Rinsed/ Irrigated with Saline -Foul Odor after Cleansing No -Bioengineered Tissue No -Topical Lidocaine (%) 4 -Lidocaine (ml) 20 -Bleeding Controlled with NA -Treatment Response Procedure Tolerated Well #3 Medial LLE -Time 13:09 -Post Debridement Size (cm) - Length 0 -Post Debridement Size (cm) - Width 0 -Post Debridement Size (cm) - Depth 0 -Total Square Cm 0 -Wound/Ulcer Outcome Converted #4 Lateral LLE -Time 13:10 -Correct Patient Yes -Correct Side, Site, Position Yes -Correct Procedure Yes -Procedure Performed No -Post Debridement Size (cm) - Length 0 -Post Debridement Size (cm) - Width 0 -Post Debridement Size (cm) - Depth 0 -Total Square Cm 0 -Wound/Ulcer Outcome Converted Pain Scale: 0-10 Numeric Is Patient Pain Free? 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 She has a large irregular ulceration on the left lower extremity which is related to her venous disease. The patient has demonstrated slow but progressive improvement. The ulceration appears to be somewhat larger, with loss of epithelialized areas, and evidence of enhanced drainage from the ulc eration, which is green in color. We are to continue leg elevation, avoidance of idle standing and sitting, compression by means of SurePress, active lifestyle, weight control measures,etc. She is to continue to take a well- balanced, nutritious diet. We are to continue with the use of Silvadene topically. This will be applied topically on a daily basis. Because of apparent deterioration of the patient's ulceration, and enhanced drainage which is green, swab cultures have been obtained for aerobic and anaerobic culture. The suspicion is that infection may be present, with Pseudomonas species. The patient has recently been diagnosed with dementia. According to the patient's , her management in the home setting is becoming increasingly more difficult. Recent cultures have been positive for Staphylococcus aureus. A prescription was provided for Duricef 1 g p.o. twice daily for a total of 7 days. However, unfortunately, the patient and her family have failed to fill the prescription, and the antibiotic has not yet been started. The patient has been urged to start the medication as prescribed. Plan: As above. The patient will return in 2 weeks for reevaluation. We are to continue Silvadene topically. Compression will be continued by means of SurePress which will be applied daily. We will await the results of cultures, obtained today. Appropriate antibiotic recommendations will be based upon the results of cultures. Current measures include leg elevation, avoidance of idle standing and sitting, activity as tolerated, weight control, and compression by means of SurePress, applied by the patient on a daily basis. She is to continue with the use of XtraSorb for moisture control. The ulceration continues to be exudative, and the patient has been encouraged to enhance the amount of time spent elevating her lower extremity, to help minimize the drainage. It appears as though the patient has been relatively noncompliant with recommendations for leg elevation, and she has been noncompliant with compression pumps as well. Patient is to continue the use of Vasculera orally on a daily basis. Nutritional optimization has been recommended. We may consider the use of PuraPly in the near future, if preauthorized by the patient's insurance. Patient will return in 2 weeks for reassessment. Patient has been advised to implement the oral antibiotic which was prescribed as a result of recent positive culture for Staphylococcus aureus. Duricef 1 g twice daily for 7 days was prescribed. Patient weight is 160 pounds. Patient is 5 feet 9 inches tall. BMI is 23.6. We have discussed weight loss issues, the patient does not require counseling, as her BMI is reasonable. The patient is not a smoker. Influenza vaccine was not administered.
== END 2018-09-10 23:59 ==
LOC: WC 12:30
PROVIDERS: Visit Provider Surgery
DX: I83.222 Varicose veins of left lower extremity with both ulcer of calf and inflammation (principal); L97.222 Non-pressure chronic ulcer of left calf with fat layer exposed; M79.89 Other specified soft tissue disorders; Z86.718 Personal history of other venous thrombosis and embolism; I87.1 Compression of vein; R60.0 Localized edema; I89.0 Lymphedema, not elsewhere classified; Z79.899 Other long term (current) drug therapy; Z79.82 Long term (current) use of aspirin; Z79.52 Long term (current) use of systemic steroids; F03.90 Unspecified dementia, unspecified severity, without behavioral disturbance, psychotic disturbance, mood disturbance, and anxiety; Z91.19 Patient's noncompliance with other medical treatment and regimen
CPT/HCPCS: 11042; 11045; 87070; 87075; 87077; 87186; 87205

== ENCOUNTER 2018-10-11 12:30 | Outpatient (RCR) | payer MEDICARE, BC, SELFPAY ==
[2018-09-11 00:45] VITALS: BP 140/75; PULSE 66; RESP 18; TEMP 37
[2018-09-13 12:56] VITALS: BP 138/73; PULSE 72; RESP 18; TEMP 36.9
--- NOTE | 2018-09-13 13:23 | HP.PCM_ITS ---
(1) Chronic venous hypertension with inflammation involving left side Status: Chronic Current Visit: Yes Code(s): I87.322 - Chronic venous hypertension (idiopathic) with inflammation of left lower extremity (2) Left leg swelling Status: Chronic Current Visit: Yes Code(s): M79.89 - Other specified soft tissue disorders (3) Varicose veins with ulcer and inflammation Status: Chronic Current Visit: Yes Code(s): I83.209 - Varicose veins of unspecified lower extremity with both ulcer of unspecified site and inflammation; L97.909 - Non-pressure chronic ulcer of unspecified part of unspecified lower leg with unspecified severity (4) Leg edema, left Status: Chronic Current Visit: Yes Code(s): R60.0 - Localized edema (5) May-Thurner syndrome Status: Resolved Current Visit: No Code(s): I87.1 - Compression of vein (6) History of DVT (deep vein thrombosis) Status: Chronic Current Visit: No Code(s): Z86.718 - Personal history of other venous thrombosis and embolism Comment: left lower ext (7) dermatomycosis leg Status: Resolved Current Visit: No (8) Cellulitis, leg Status: Resolved Current Visit: No Qualifiers: Code(s): L03.119 - Cellulitis of unspecified part of limb (9) Erythema of skin Status: Resolved Current Visit: No Code(s): L53.9 - Erythematous condition, unspecified (10) Cellulitis of leg Status: Resolved Current Visit: No Qualifiers: Code(s): L03.119 - Cellulitis of unspecified part of limb (11) Cellulitis Status: Resolved Current Visit: No Code(s): L03.90 - Cellulitis, unspecified (12) Chronic venous insufficiency Status: Chronic Current Visit: Yes (13) Lymphedema of left leg Status: Chronic Current Visit: Yes Code(s): I89.0 - Lymphedema, not elsewhere classified (14) 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 Status: Chronic Current Visit: Yes Code(s): I87.039 - Postthrombotic syndrome with ulcer and inflammation of unspecified lower extremity (15) Calf ulcer Status: Chronic Current Visit: Yes Qualifiers: Laterality: left Non-pressure ulcer stage: with fat layer exposed Qualified Code(s): L97.222 - Non-pressure chronic ulcer of left calf with fat layer exposed Code(s): L97.209 - Non-pressure chronic ulcer of unspecified calf with unspecified severity (16) chronic left lower ext wound Status: Chronic Current Visit: Yes History of Present Illness Chief Complaint: Chronic venous insufficiency, chronic venous hypertension with inflammation and ulceration, varicose veins with inflammation and ulceration, post phlebitic syndrome with inflammation and ulceration,leg swelling, leg edema, lymphedema, venous stasis ulceration-left lower extremity History of Wound: This is a 78-year-old white female with a long-standing history of chronic venous disease and swelling in her left lower extremity. This has been present for many years. She has a large ulceration located between her left knee and ankle, which is quite large and irregular in shape, and also highly exudative. 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 She has also previously undergone successful endovenous laser ablation of the left great and small saphenous veins. Healing of the patient's left lower extremity ulceration has been slow, but progressive. A number of healing measures have been implemented in the past, without success. We are currently using Silvadene topically and Xtrasorb for absorption of exudate. 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 (Chronic) chronic left lower ext wound (Chronic) Surgical History: appendectomy, hysterectomy Allergies/Adverse Reactions: Allergies Latex, Natural Rubber Allergy (Verified 07/12/13 11:34) Rash Sulfa (Sulfonamide Antibiotics) Allergy (Verified 07/12/13 11:34) Hives trimethoprim Allergy (Verified 07/12/13 11:34) Hives Home Medications: Ambulatory Orders Medication Instructions Recorded Aspirin [Aspirin, Baby] 81 mg PO DAILY@0800 07/12/13 Calcium Carb/Vitamin D [Os-Mo 1 tablet PO DAILY@0800 07/12/13 500MG + D] Clopidogrel Bisulfate [Plavix] 75 mg PO DAILY 07/12/13 Doxepin HCl [Sinequan] 100 mg PO BID 07/12/13 Doxycycline Monohydrate [Monodox] 100 mg PO BID 07/12/13 [place]-3 Fatty Acids/Fish Oil [Fish 1 each PO DAILY 07/12/13 Oil 1,000 mg Softgel] Vitamin B12 500 mg PO DAILY 07/12/13 Vitamin C 500 mg PO DAILY 07/12/13 proMETHazine soln (6.25mg/5mL) 5 ml PO Q4H PRN PRN 07/12/13 [Phenergan Plain] Prednisone [PredniSONE] 200 mg PO DAILY 07/03/14 Valacyclovir HCl [Valacyclovir] 500 mg PO DAILY 07/03/14 Smoking Status: Never smoker Tobacco Use: Non-smoker Review of Systems Constitutional: Denies: Chills, Fever, Weight Change Eyes: Denies: Pain, Vision Change HEENT: Denies: Difficulty Hearing, Difficulty Swallowing, Sinus Congestion Cardiovascular: Denies: Chest Pain, Palpitations Respiratory: Denies: Cough, Shortness of Breath Gastrointestinal: Denies: Diarrhea, Nausea, Vomiting Genitourinary: Denies: Dysuria, Hematuria Endocrine: Denies: Heat/ Cold Intolerance, Polydipsia, Polyuria Hematologic/ Lymphatic: Denies: Easy Bruising, Easy Bleeding - Physical Exam Vital Signs Temp Pulse Resp BP 98.4 F 72 18 138/73 H 09/13/18 12:56 09/13/18 12:56 09/13/18 12:56 09/13/18 12:56 General: Alert, Oriented x3, Cooperative, No apparent distress, Well developed, Well nourished HEENT: Atraumatic, PERRLA, EOMI, Normocephalic Oral: Moist Mucosa Neck: No JVD Lungs: Normal air movement Abdomen: Non-Distended Extremities: No clubbing, No cyanosis, No Calf Tenderness, Edema, - - Swelling and edema persist in the left lower extremity, which has been chronic in nature. It is most notable on the dorsum of the left foot. The large ulceration on the left calf appears significantly improved. There are large areas of epithelialization. The ulceration remains highly irregular in shape. The base of the ulceration is generally pink and healthy, though with areas of active healthy granulation tissue. There is a moderate amount of bioburden. There is no sign of infection or cellulitis. Dimensions are documented elsewhere. Skin: No rashes Wound Measurements and Assessment WC - Nurse 1 - General Ulcer Measurement Start: 09/13/18 12:56 Freq: Status: Active Protocol: Activity Type Activity Date Activity User E-Sign Co-Sign Detail Recorded Client Recorded Date Recorded By Document 09/13/18 12:56 [id number] 09/13/18 13:04 09/13/18 12:56 Wound Center Nurse 1 [Ulcer Assessment] #5 LLE- Circumfrential -Combined with other wound No -Current Size (cm) - Length 14.7 -Current Size (cm) - Width 24.7 -Current Size (cm) - Depth 0.2 -Total Square Cm 363.09 -Photo Taken No -Epithelialization Small 1-33% -Tunneling No -Undermining/Tunneling No -Circular Undermining No -Classification - Thickness Full Thickness without Exposed Support Structure -Exudate Amt Large (67-100%) -Exudate Type Yellow/Green -Wound Margin Fibrotic Scar, Thickened Scar -Granulation Amt Small (1-33%) -Granulation Quality Castella -Slough/Fibrin Yes -Necrosis Amt Large (67-100%) -Necrotic Tissue Type Adherent Slough -Structure Exposed Fascia Fat Layer Exposed -Texture (Nahomy-wound Skin Appearance) Assessed Friable Localized Edema Scarring -Moisture (Nahomy-wound Skin Appearance No Abnormality ) Assessed -Color (Nahomy-wound Skin Appearance) Assessed Erythema Hemosiderin Staining -Temperature (Nahomy-wound Skin No Abnormality Appearance) (Pt Warm) -Tenderness on Palpation (Nahomy-wound No Skin Appearance) -Ulcer Cleansing Wound Cleanser -Foul Odor after Cleansing No -Anesthetic Used 4% Lidocaine Solution [Edema Assessment] -Lower Limb Edema Present Yes -Left Calf (cm) 34.0 -Left Ankle (cm) 24.0 WC - Nurse 2 - General Ulcer CM Notes Start: 09/13/18 12:56 Freq: Status: Active Protocol: Activity Type Activity Date Activity User E-Sign Co-Sign Detail Recorded Client Recorded Date Recorded By Document 09/13/18 13:10 DV [id number] 09/13/18 13:18 DV 09/13/18 13:10 Wound Center Nurse 2 [Procedure/Treatment] #5 LLE- Circumfrential -Time 13:10 -Correct Patient Yes -Correct Side, Site, Position Yes -Correct Procedure Yes -Procedure Performed Yes -Type of Procedure Debridement -Clinical Debridement Subcutaneous -Post Debridement Size (cm) - Length 13.5 -Post Debridement Size (cm) - Width 24.0 -Post Debridement Size (cm) - Depth 0.3 -Total Square Cm 324.00 -Wound/Ulcer Outcome Healed- Flap -Ulcer Cleansing Rinsed/ Irrigated with Saline -Foul Odor after Cleansing No -Bioengineered Tissue No -Bleeding Controlled with Pressure -Offloading No -Treatment Response Procedure Tolerated Well [See Physician Procedure note for Specifics] Pain Scale: 0-10 Numeric [Pain] -Is Patient Pain Free? Yes Neurological: Cranial nerves II-XII grossly intact, Neuro grossly intact Psych/Mental Status: Normal Affect, Appropriate, Alert and oriented to time, place, person, mood and affect Debridement Note Post-Debridement Measurements/Treatment WC - Nurse 2 - General Ulcer CM Notes Start: 09/13/18 12:56 Freq: Status: Active Protocol: Activity Type Activity Date Activity User E-Sign Co-Sign Detail Recorded Client Recorded Date Recorded By Document 09/13/18 13:10 DV [id number] 09/13/18 13:18 DV 09/13/18 13:10 Wound Center Nurse 2 #5 LLE- Circumfrential -Time 13:10 -Correct Patient Yes -Correct Side, Site, Position Yes -Correct Procedure Yes -Procedure Performed Yes -Type of Procedure Debridement -Clinical Debridement Subcutaneous -Post Debridement Size (cm) - Length 13.5 -Post Debridement Size (cm) - Width 24.0 -Post Debridement Size (cm) - Depth 0.3 -Total Square Cm 324.00 -Wound/Ulcer Outcome Healed- Flap -Ulcer Cleansing Rinsed/ Irrigated with Saline -Foul Odor after Cleansing No -Bioengineered Tissue No -Bleeding Controlled with Pressure -Offloading No -Treatment Response Procedure Tolerated Well Pain Scale: 0-10 Numeric Is Patient Pain Free? Yes Laterality: Left - Calf Type of Debridement: Excisional debridement Anesthesia Used: 5% Lidocaine Gel Depth: Down to and including healthy tissue, in the subcutaneous layer Percentage of wound debrided: 100 Instrument Used: 7mm curette Severity: Fat Layer Exposed Amount of bleeding with debridement: Mild Bleeding Controlled with: Compression and gauze Patient tolerated procedure well Assessment/Plan Active Problems Chronic venous hypertension with inflammation involving left side (Chronic) Left leg swelling (Chronic) Varicose veins with ulcer and inflammation (Chronic) Leg edema, left (Chronic) Chronic venous insufficiency (Chronic) Lymphedema of left leg (Chronic) 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 She has a large irregular ulceration on the left lower extremity which is related to her venous disease. The patient has demonstrated slow but progressive improvement. The ulceration appears to be somewhat larger, with loss of epithelialized areas, and evidence of enhanced drainage from the ulceration, which is green in color. We are to continue leg elevation, avoidance of idle standing and sitting, compression by means of SurePress, active lifestyle, weight control measures,etc. She is to continue to take a well-balanced, nutritious diet. We are to continue with the use of Silvadene topically. This will be applied topically on a daily basis. Recent cultures have been positive for Staphylococcus aureus. A prescription was provided for Duricef 1 g p.o. twice daily for a total of 7 days, which is now completed. There appears to have been significant improvement in the status of the patient's left calf ulceration within the last 2 weeks. Plan: As above. The patient will return in 2 weeks for reevaluation. We are to continue Silvadene topically. Compression will be continued by means of SurePress which will be applied daily. We will await the results of cultures, obtained today. Appropriate antibiotic recommendations will be based upon the results of cultures. Current measures include leg elevation, avoidance of idle standing and sitting, activity as tolerated, weight control, and compression by means of SurePress, applied by the patient on a daily basis. She is to continue with the use of XtraSorb for moisture control. The ulceration continues to be exudative, and the patient has been encouraged to enhance the amount of time spent elevating her lower extremity, to help minimize the drainage. It appears as though the patient has been relatively noncompliant with recommendations for leg elevation, and she has been noncompliant with compression pumps as well. Patient is to continue the use of Vasculera orally on a daily basis. Nutritional optimization has been recommended. We may consider the use of PuraPly in the near future, if preauthorized by the patient's insurance. Patient will return in 2 weeks for reassessment. Patient weight is 160 pounds. Patient is 5 feet 9 inches tall. BMI is 23.6. We have discussed weight loss issues, the patient does not require counseling, as her BMI is reasonable. The patient is not a smoker. Influenza vaccine was not administered.
[2018-09-27 12:34] VITALS: BP 142/75; PULSE 67; RESP 16; TEMP 36.7
--- NOTE | 2018-09-27 13:05 | PCM.WC.HP ---
(1) Chronic venous hypertension with inflammation involving left side Status: Chronic Current Visit: Yes Code(s): I87.322 - Chronic venous hypertension (idiopathic) with inflammation of left lower extremity (2) Left leg swelling Status: Chronic Current Visit: Yes Code(s): M79.89 - Other specified soft tissue disorders (3) Varicose veins with ulcer and inflammation Status: Chronic Current Visit: Yes Code(s): I83.209 - Varicose veins of unspecified lower extremity with both ulcer of unspecified site and inflammation; L97.909 - Non-pressure chronic ulcer of unspecified part of unspecified lower leg with unspecified severity (4) Leg edema, left Status: Chronic Current Visit: Yes Code(s): R60.0 - Localized edema (5) History of DVT (deep vein thrombosis) Status: Chronic Current Visit: No Code(s): Z86.718 - Personal history of other venous thrombosis and embolism Comment: left lower ext (6) Chronic venous insufficiency Status: Chronic Current Visit: Yes (7) Lymphedema of left leg Status: Chronic Current Visit: Yes Code(s): I89.0 - Lymphedema, not elsewhere classified (8) 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 Status: Chronic Current Visit: Yes Code(s): I87.039 - Postthrombotic syndrome with ulcer and inflammation of unspecified lower extremity (9) Calf ulcer Status: Chronic Current Visit: Yes Qualifiers: Laterality: left Non-pressure ulcer stage: with fat layer exposed Qualified Code(s): L97.222 - Non-pressure chronic ulcer of left calf with fat layer exposed Code(s): L97.209 - Non-pressure chronic ulcer of unspecified calf with unspecified severity (10) chronic left lower ext wound Status: Chronic Current Visit: Yes History of Present Illness Chief Complaint: Chronic venous insufficiency, chronic venous hypertension with inflammation and ulceration, varicose veins with inflammation and ulceration, post phlebitic syndrome with inflammation and ulceration,leg swelling, leg edema, lymphedema, venous stasis ulceration-left lower extremity History of Wound: This is a 78-year-old white female with a long-standing history of chronic venous disease and swelling in her left lower extremity. This has been present for many years. She has a large ulceration located between her left knee and ankle, which is quite large and irregular in shape, and also highly exudative. 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 She has also previously undergone successful endovenous laser ablation of the left great and small saphenous veins. Healing of the patient's left lower extremity ulceration has been slow, but progressive. A number of healing measures have been implemented in the past, without success. We are currently using Silvadene topically and Xtrasorb for absorption of exudate. 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 (Chronic) chronic left lower ext wound (Chronic) Surgical History: appendectomy, hysterectomy Allergies/Adverse Reactions: Allergies Latex, Natural Rubber Allergy (Verified 07/12/13 11:34) Rash Sulfa (Sulfonamide Antibiotics) Allergy (Verified 07/12/13 11:34) Hives trimethoprim Allergy (Verified 07/12/13 11:34) Hives Home Medications: Ambulatory Orders Medication Instructions Recorded Aspirin [Aspirin, Baby] 81 mg PO DAILY@0800 07/12/13 Calcium Carb/Vitamin D [Os-Mo 1 tablet PO DAILY@0800 07/12/13 500MG + D] Clopidogrel Bisulfate [Plavix] 75 mg PO DAILY 07/12/13 Doxepin HCl [Sinequan] 100 mg PO BID 07/12/13 Doxycycline Monohydrate [Monodox] 100 mg PO BID 07/12/13 [place]-3 Fatty Acids/Fish Oil [Fish 1 each PO DAILY 07/12/13 Oil 1,000 mg Softgel] Vitamin B12 500 mg PO DAILY 07/12/13 Vitamin C 500 mg PO DAILY 07/12/13 proMETHazine soln (6.25mg/5mL) 5 ml PO Q4H PRN PRN 07/12/13 [Phenergan Plain] Prednisone [PredniSONE] 200 mg PO DAILY 07/03/14 Valacyclovir HCl [Valacyclovir] 500 mg PO DAILY 07/03/14 Smoking Status: Never smoker Tobacco Use: Non-smoker Review of Systems Constitutional: Denies: Chills, Fever, Weight Change Eyes: Denies: Pain, Vision Change HEENT: Denies: Difficulty Hearing, Difficulty Swallowing, Sinus Congestion Cardiovascular: Denies: Chest Pain, Palpitations Respiratory: Denies: Cough, Shortness of Breath Gastrointestinal: Denies: Diarrhea, Nausea, Vomiting Genitourinary: Denies: Dysuria, Hematuria Endocrine: Denies: Heat/ Cold Intolerance, Polydipsia, Polyuria Hematologic/ Lymphatic: Denies: Easy Bruising, Easy Bleeding - Physical Exam Vital Signs Temp Pulse Resp BP 98.1 F 67 16 142/75 H 09/27/18 12:34 09/27/18 12:34 09/27/18 12:34 09/27/18 12:34 General: Alert, Oriented x3, Cooperative, No apparent distress, Well developed, Well nourished HEENT: Atraumatic, PERRLA, EOMI, Normocephalic Oral: Moist Mucosa Neck: No JVD Lungs: Normal air movement Abdomen: Non-Distended Extremities: No clubbing, No cyanosis, No Calf Tenderness, Edema - `, - - Swelling and edema persist in the left lower extremity. This is most notable on the dorsum of the left foot. This has been a chronic finding. The ulceration of the left calf persists as well, slightly smaller in size. The ulceration is highly irregular in shape. Dimensions are documented elsewhere. There is a moderate amount of bioburden. There is no obvious sign of infection or cellulitis. Skin: No rashes Wound Measurements and Assessment WC - Nurse 1 - General Ulcer Measurement Start: 09/13/18 12:56 Freq: Status: Active Protocol: Activity Type Activity Date Activity User E-Sign Co-Sign Detail Recorded Client Recorded Date Recorded By Document 09/27/18 12:34 [id number] 09/27/18 12:54 CARLOS 09/27/18 12:34 Wound Center Nurse 1 [Ulcer Assessment] #5 LLE- Circumfrential -Combined with other wound No -Current Size (cm) - Length 15.5 -Current Size (cm) - Width 23.2 -Current Size (cm) - Depth 0.2 -Total Square Cm 359.60 -Exudate Amt Large (67-100%) -Exudate Type Serosanguineous -Wound Margin Distinct, Outline Attached -Granulation Amt None Present (0 %) -Granulation Quality N/A -Slough/Fibrin Yes -Necrosis Amt Small (1-33%) -Necrotic Tissue Type Adherent Slough -Structure Exposed Fascia Fat Layer Exposed -Texture (Nahomy-wound Skin Appearance) Excoriation -Moisture (Nahomy-wound Skin Appearance No Abnormality ) -Color (Nahomy-wound Skin Appearance) Hemosiderin Staining -Temperature (Nahomy-wound Skin No Abnormality Appearance) (Pt Warm) -Tenderness on Palpation (Nahomy-wound Yes Skin Appearance) -Ulcer Cleansing PURELL SOAP -Foul Odor after Cleansing No -Anesthetic Used 4% Lidocaine Solution [Edema Assessment] -Lower Limb Edema Present Yes -Left Calf (cm) 41.5 -Left Ankle (cm) 20.5 Neurological: Cranial nerves II-XII grossly intact, Neuro grossly intact Psych/Mental Status: Normal Affect, Appropriate, Alert and oriented to time, place, person, mood and affect Debridement Note Post-Debridement Measurements/Treatment WC - Nurse 2 - General Ulcer CM Notes Start: 09/13/18 12:56 Freq: Status: Active Protocol: Activity Type Activity Date Activity User E-Sign Co-Sign Detail Recorded Client Recorded Date Recorded By Document 09/13/18 13:10 DV [id number] 09/13/18 13:18 DV 09/13/18 13:10 Wound Center Nurse 2 #5 LLE- Circumfrential -Time 13:10 -Correct Patient Yes -Correct Side, Site, Position Yes -Correct Procedure Yes -Procedure Performed Yes -Type of Procedure Debridement -Clinical Debridement Subcutaneous -Post Debridement Size (cm) - Length 13.5 -Post Debridement Size (cm) - Width 24.0 -Post Debridement Size (cm) - Depth 0.3 -Total Square Cm 324.00 -Wound/Ulcer Outcome Healed- Flap -Ulcer Cleansing Rinsed/ Irrigated with Saline -Foul Odor after Cleansing No -Bioengineered Tissue No -Bleeding Controlled with Pressure -Offloading No -Treatment Response Procedure Tolerated Well Pain Scale: 0-10 Numeric Is Patient Pain Free? Yes Laterality: Left - Calf Type of Debridement: Excisional debridement Anesthesia Used: 5% Lidocaine Gel Depth: Down to and including healthy tissue, in the subcutaneous layer Percentage of wound debrided: 100 Instrument Used: 5mm curette Severity: Fat Layer Exposed Amount of bleeding with debridement: Mild Bleeding Controlled with: Compression and gauze Patient tolerated procedure well Assessment/Plan Active Problems Chronic venous hypertension with inflammation involving left side (Chronic) Left leg swelling (Chronic) Varicose veins with ulcer and inflammation (Chronic) Leg edema, left (Chronic) Chronic venous insufficiency (Chronic) Lymphedema of left leg (Chronic) 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 She has a large irregular ulceration on the left lower extremity which is related to her venous disease. The patient has demonstrated slow but progressive improvement. The ulceration appears to be somewhat larger, with loss of epithelialized areas, and evidence of enhanced drainage from the ulceration, which is green in color. We are to continue leg elevation, avoidance of idle standing and sitting, compression by means of SurePress, active lifestyle, weight control measures,etc. She is to continue to take a well-balanced, nutritious diet. We are to continue with the use of Silvadene topically. This will be applied topically on a daily basis. Recent cultures have been positive for Staphylococcus aureus. A prescription was provided for Duricef 1 g p.o. twice daily for a total of 7 days, which is now completed. There appears to have been significant improvement in the status of the patient's left calf ulceration within the last 2 weeks. Plan: As above. The patient will return in 2 weeks for reevaluation. We are to continue Silvadene topically. Compression will be continued by means of SurePress which will be applied daily. We will await the results of cultures, obtained today. Appropriate antibiotic recommendations will be based upon the results of cultures. Current measures include leg elevation, avoidance of idle standing and sitting, activity as tolerated, weight control, and compression by means of SurePress, applied by the patient on a daily basis. She is to continue with the use of XtraSorb for moisture control. The ulceration continues to be exudative, and the patient has been encouraged to enhance the amount of time spent elevating her lower extremity, to help minimize the drainage. It appears as though the patient has been relatively noncompliant with recommendations for leg elevation, and she has been noncompliant with compression pumps as well. Patient is to continue the use of Vasculera orally on a daily basis. Nutritional optimization has been recommended. We may consider the use of PuraPly in the near future, if preauthorized by the patient's insurance. Patient will return in 2 weeks for reassessment. Patient weight is 160 pounds. Patient is 5 feet 9 inches tall. BMI is 23.6. We have discussed weight loss issues, the patient does not require counseling, as her BMI is reasonable. The patient is not a smoker. Influenza vaccine was not administered.
--- NOTE | 2018-09-27 13:51 | HP.PCM_ITS ---
(1) Chronic venous insufficiency Status: Chronic Current Visit: Yes (2) Calf ulcer Status: Chronic Current Visit: Yes Qualifiers: Laterality: right Non-pressure ulcer stage: with fat layer exposed Qualified Code(s): L97.212 - Non-pressure chronic ulcer of right calf with fat layer exposed Code(s): L97.209 - Non-pressure chronic ulcer of unspecified calf with unspecified severity History of Present Illness Chief Complaint: Chronic venous insufficiency, chronic venous hypertension with inflammation and ulceration, varicose veins with inflammation and ulceration, post phlebitic syndrome with inflammation and ulceration,leg swelling, leg edema, lymphedema, venous stasis ulceration-left lower extremity History of Wound: This is a 78-year-old white female with a long-standing history of chronic venous disease and swelling in her left lower extremity. This has been present for many years. She has a large ulceration located between her left knee and ankle, which is quite large and irregular in shape, and also highly exudative. 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 She has also previously undergone successful endovenous laser ablation of the left great and small saphenous veins. Healing of the patient's left lower extremity ulceration has been slow, but progressive. A number of healing measures have been implemented in the [facility], without success. We are currently using Silvadene topically and Xtrasorb for absorption of exudate. 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 (Chronic) chronic left lower ext wound (Chronic) Surgical History: appendectomy, hysterectomy Allergies/Adverse Reactions: Allergies Latex, Natural Rubber Allergy (Verified 07/12/13 11:34) Rash Sulfa (Sulfonamide Antibiotics) Allergy (Verified 07/12/13 11:34) Hives trimethoprim Allergy (Verified 07/12/13 11:34) Hives Home Medications: Ambulatory Orders Medication Instructions Recorded Aspirin [Aspirin, Baby] 81 mg PO DAILY@0800 10/01/13 Calcium Carb/Vitamin D [Os-Mo 1 tablet PO DAILY@0800 07/12/13 500MG + D] Clopidogrel Bisulfate [Plavix] 75 mg PO DAILY 07/12/13 Doxepin HCl [Sinequan] 100 mg PO BID 07/12/13 Doxycycline Monohydrate [Monodox] 100 mg PO BID 07/12/13 [place]-3 Fatty Acids/Fish Oil [Fish 1 each PO DAILY 07/12/13 Oil 1,000 mg Softgel] Vitamin B12 500 mg PO DAILY 07/12/13 Vitamin C 500 mg PO DAILY 07/12/13 proMETHazine soln (6.25mg/5mL) 5 ml PO Q4H PRN PRN 07/12/13 [Phenergan Plain] Prednisone [PredniSONE] 200 mg PO DAILY 07/03/14 Valacyclovir HCl [Valacyclovir] 500 mg PO DAILY 07/03/14 Smoking Status: Never smoker Tobacco Use: Non-smoker - Physical Exam Vital Signs Temp Pulse Resp BP 98.1 F 67 16 142/75 H 09/27/18 12:34 09/27/18 12:34 09/27/18 12:34 09/27/18 12:34 Wound Measurements and Assessment WC - Nurse 1 - General Ulcer Measurement Start: 09/13/18 12:56 Freq: Status: Active Protocol: Activity Type Activity Date Activity User E-Sign Co-Sign Detail Recorded Client Recorded Date Recorded By Document 09/27/18 12:34 [id number] 09/27/18 12:54 CARLOS 09/27/18 12:34 Wound Center Nurse 1 [Ulcer Assessment] #5 LLE- Circumfrential -Combined with other wound No -Current Size (cm) - Length 15.5 -Current Size (cm) - Width 23.2 -Current Size (cm) - Depth 0.2 -Total Square Cm 359.60 -Exudate Amt Large (67-100%) -Exudate Type Serosanguineous -Wound Margin Distinct, Outline Attached -Granulation Amt None Present (0 %) -Granulation Quality N/A -Slough/Fibrin Yes -Necrosis Amt Small (1-33%) -Necrotic Tissue Type Adherent Slough -Structure Exposed Fascia Fat Layer Exposed -Texture (Nahomy-wound Skin Appearance) Excoriation -Moisture (Nahomy-wound Skin Appearance No Abnormality ) -Color (Nahomy-wound Skin Appearance) Hemosiderin Staining -Temperature (Nahomy-wound Skin No Abnormality Appearance) (Pt Warm) -Tenderness on Palpation (Nahomy-wound Yes Skin Appearance) -Ulcer Cleansing PURELL SOAP -Foul Odor after Cleansing No -Anesthetic Used 4% Lidocaine Solution [Edema Assessment] -Lower Limb Edema Present Yes -Left Calf (cm) 41.5 -Left Ankle (cm) 20.5 Debridement Note Post-Debridement Measurements/Treatment WC - Nurse 2 - General Ulcer CM Notes Start: 09/13/18 12:56 Freq: Status: Active Protocol: Activity Type Activity Date Activity User E-Sign Co-Sign Detail Recorded Client Recorded Date Recorded By Document 09/13/18 13:10 DV [id number] 09/13/18 13:18 DV 09/13/18 13:10 Wound Center Nurse 2 #5 LLE- Circumfrential -Time 13:10 -Correct Patient Yes -Correct Side, Site, Position Yes -Correct Procedure Yes -Procedure Performed Yes -Type of Procedure Debridement -Clinical Debridement Subcutaneous -Post Debridement Size (cm) - Length 13.5 -Post Debridement Size (cm) - Width 24.0 -Post Debridement Size (cm) - Depth 0.3 -Total Square Cm 324.00 -Wound/Ulcer Outcome Healed- Flap -Ulcer Cleansing Rinsed/ Irrigated with Saline -Foul Odor after Cleansing No -Bioengineered Tissue No -Bleeding Controlled with Pressure -Offloading No -Treatment Response Procedure Tolerated Well Pain Scale: 0-10 Numeric Is Patient Pain Free? 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 She has a large irregular ulceration on the left lower extremity which is related to her venous disease. The patient has demonstrated slow but progressive improvement. The ulceration appears to be somewhat larger, with loss of epithelialized areas, and evidence of enhanced drainage from the ulceration, which is green in color. We are to continue leg elevation, avoidance of idle standing and sitting, compression by means of SurePress, active lifestyle, weight control measures,etc. She is to continue to take a well-balanced, nutritious diet. We are to continue with the use of Silvadene topically. This will be applied topically on a daily basis. Recent cultures have been positive for Staphylococcus aureus. A prescription was provided for Duricef 1 g p.o. twice daily for a total of 7 days, which is now completed. There appears to have been significant improvement in the status of the patient's left calf ulceration within the last 2 weeks. Plan: As above. The patient will return in 2 weeks for reevaluation. We are to continue Silvadene topically. Compression will be continued by means of SurePress which will be applied daily. We will await the results of cultures, obtained today. Appropriate antibiotic recommendations will be based upon the results of cultures. Current measures include leg elevation, avoidance of idle standing and sitting, activity as tolerated, weight control, and compression by means of SurePress, applied by the patient on a daily basis. She is to continue with the use of XtraSorb for moisture control. The ulceration continues to be exudative, and the patient has been encouraged to enhance the amount of time spent elevating her lower extremity, to help minimize the drainage. It appears as though the patient has been relatively noncompliant with recommendations for leg elevation, and she has been noncompliant with compression pumps as well. Patient is to continue the use of Vasculera orally on a daily basis. Nutritional optimization has been recommended. We may consider the use of PuraPly in the near future, if preauthorized by the patient's insurance. Patient will return in 2 weeks for reassessment. Patient weight is 160 pounds. Patient is 5 feet 9 inches tall. BMI is 23.6. We have discussed weight loss issues, the patient does not require counseling, as her BMI is reasonable. The patient is not a smoker. Influenza vaccine was not administered.
[2018-10-11 12:38] VITALS: BP 149/91; PULSE 70; RESP 18; TEMP 36.6
--- NOTE | 2018-10-11 13:12 | HP.PCM_ITS ---
(1) Chronic venous insufficiency Status: Chronic Current Visit: Yes (2) Calf ulcer Status: Chronic Current Visit: Yes Qualifiers: Laterality: right Non-pressure ulcer stage: with fat layer exposed Qualified Code(s): L97.212 - Non-pressure chronic ulcer of right calf with fat layer exposed Code(s): L97.209 - Non-pressure chronic ulcer of unspecified calf with unspecified severity History of Present Illness Chief Complaint: Chronic venous insufficiency, chronic venous hypertension with inflammation and ulceration, varicose veins with inflammation and ulceration, post phlebitic syndrome with inflammation and ulceration,leg swelling, leg edema, lymphedema, venous stasis ulceration-left lower extremity History of Wound: This is a 78-year-old white female with a long-standing history of chronic venous disease and swelling in her left lower extremity. This has been present for many years. She has a large ulceration located between her left knee and ankle, which is quite large and irregular in shape, and also highly exudative. 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 She has also previously undergone successful endovenous laser ablation of the left great and small saphenous veins. Healing of the patient's left lower extremity ulceration has been slow, but progressive. A number of healing measures have been implemented in the [facility], without success. We are currently using Silvadene topically and Xtrasorb for absorption of exudate. 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 (Chronic) chronic left lower ext wound (Chronic) Surgical History: appendectomy, hysterectomy Allergies/Adverse Reactions: Allergies Latex, Natural Rubber Allergy (Verified 07/12/13 11:34) Rash Sulfa (Sulfonamide Antibiotics) Allergy (Verified 07/12/13 11:34) Hives trimethoprim Allergy (Verified 07/12/13 11:34) Hives Home Medications: Ambulatory Orders Medication Instructions Recorded Aspirin [Aspirin, Baby] 81 mg PO DAILY@0800 10/01/13 Calcium Carb/Vitamin D [Os-Mo 1 tablet PO DAILY@0800 07/12/13 500MG + D] Clopidogrel Bisulfate [Plavix] 75 mg PO DAILY 07/12/13 Doxepin HCl [Sinequan] 100 mg PO BID 07/12/13 Doxycycline Monohydrate [Monodox] 100 mg PO BID 07/12/13 Rudolph-3 Fatty Acids/Fish Oil [Fish 1 each PO DAILY 07/12/13 Oil 1,000 mg Softgel] Vitamin B12 500 mg PO DAILY 07/12/13 Vitamin C 500 mg PO DAILY 07/12/13 proMETHazine soln (6.25mg/5mL) 5 ml PO Q4H PRN PRN 07/12/13 [Phenergan Plain] Prednisone [PredniSONE] 200 mg PO DAILY 07/03/14 Valacyclovir HCl [Valacyclovir] 500 mg PO DAILY 07/03/14 Smoking Status: Never smoker Tobacco Use: Non-smoker Review of Systems Constitutional: Denies: Chills, Fever, Weight Change Eyes: Denies: Pain, Vision Change HEENT: Denies: Difficulty Hearing, Difficulty Swallowing, Sinus Congestion Cardiovascular: Denies: Chest Pain, Palpitations Respiratory: Denies: Cough, Shortness of Breath Gastrointestinal: Denies: Diarrhea, Nausea, Vomiting Genitourinary: Denies: Dysuria, Hematuria Endocrine: Denies: Heat/ Cold Intolerance, Polydipsia, Polyuria Hematologic/ Lymphatic: Denies: Easy Bruising, Easy Bleeding - Physical Exam Vital Signs Temp Pulse Resp BP 98 F 70 18 149/91 H 10/11/18 12:38 10/11/18 12:38 10/11/18 12:38 10/11/18 12:38 General: Alert, Oriented x3, Cooperative, No apparent distress, Well developed, Well nourished HEENT: Atraumatic, PERRLA, EOMI, Normocephalic Oral: Moist Mucosa Neck: No JVD Lungs: Normal air movement Abdomen: Non-Distended Extremities: No clubbing, No cyanosis, No Calf Tenderness, - - Swelling and edema persist in the patient's left lower extremity, most notably on the dorsum of the left foot. The large ulceration on the left calf persists as well, very little changed in size or appearance. It is highly irregular in shape. There is a moderate amount of bioburden. There is no sign of infection or cellulitis. Dimensions are documented elsewhere. There are areas of epithelialization. Skin: No rashes Wound Measurements and Assessment WC - Nurse 1 - General Ulcer Measurement Start: 09/13/18 12:56 Freq: Status: Active Protocol: Activity Type Activity Date Activity User E-Sign Co-Sign Detail Recorded Client Recorded Date Recorded By Document 10/11/18 12:38 RB [id number] 10/11/18 12:40 RB 10/11/18 12:38 Wound Center Nurse 1 [Ulcer Assessment] #5 LLE- Circumfrential -Combined with other wound No -Current Size (cm) - Length 13.5 -Current Size (cm) - Width 22.5 -Current Size (cm) - Depth 0.1 -Total Square Cm 303.75 -Photo Taken No -Tunneling No -Undermining/Tunneling No -Circular Undermining No -Exudate Amt Large (67-100%) -Exudate Type Serosanguineous -Wound Margin Thickened & Rolled Under -Granulation Amt Small (1-33%) -Granulation Quality [place] Red -Slough/Fibrin Yes -Necrosis Amt Large (67-100%) -Necrotic Tissue Type Adherent Slough -Structure Exposed N/A -Texture (Nahomy-wound Skin Appearance) Assessed Scarring -Moisture (Nahomy-wound Skin Appearance Assessed ) -Color (Nahomy-wound Skin Appearance) Assessed -Temperature (Nahomy-wound Skin No Abnormality Appearance) (Pt Warm) -Tenderness on Palpation (Nahomy-wound No Skin Appearance) -Ulcer Cleansing Wound Cleanser -Foul Odor after Cleansing No -Anesthetic Used 4% Lidocaine Solution [Edema Assessment] -Lower Limb Edema Present Yes -Left Calf (cm) 43 -Left Ankle (cm) 25.6 - Nurse 2 - General Ulcer CM Notes Start: 09/13/18 12:56 Freq: Status: Active Protocol: Activity Type Activity Date Activity User E-Sign Co-Sign Detail Recorded Client Recorded Date Recorded By Document 10/11/18 12:51 CARLOS [id number] 10/11/18 13:02 JS 10/11/18 12:51 Wound Center Nurse 2 [Procedure/Treatment] #5 LLE- Circumfrential -Time 12:51 -Correct Patient Yes -Correct Side, Site, Position Yes -Correct Procedure Yes -Procedure Performed Yes -Type of Procedure Debridement -Clinical Debridement Subcutaneous -Post Debridement Size (cm) - Length 14.0 -Post Debridement Size (cm) - Width 19.0 -Post Debridement Size (cm) - Depth 0.2 -Total Square Cm 266.00 -Wound/Ulcer Outcome Not Healed -Ulcer Cleansing Rinsed/ Irrigated with Saline -Foul Odor after Cleansing No -Bioengineered Tissue No -Topical Lidocaine (%) 4 -Lidocaine (ml) 15 -Bleeding Controlled with Pressure -Offloading No -Treatment Response Procedure Tolerated Well [See Physician Procedure note for Specifics] Pain Scale: 0-10 Numeric [Pain] -Is Patient Pain Free? Yes Neurological: Cranial nerves II-XII grossly intact, Neuro grossly intact Psych/Mental Status: Normal Affect, Appropriate, Alert and oriented to time, place, person, mood and affect Debridement Note Post-Debridement Measurements/Treatment WC - Nurse 2 - General Ulcer CM Notes Start: 09/13/18 12:56 Freq: Status: Active Protocol: Activity Type Activity Date Activity User E-Sign Co-Sign Detail Recorded Client Recorded Date Recorded By Document 09/13/18 13:10 DV [id number] 09/13/18 13:18 DV Document 10/11/18 12:51 [id number] 10/11/18 13:02 09/13/18 10/11/18 13:10 12:51 Wound Center Nurse 2 #5 LLE- Circumfrential -Time 13:10 12:51 -Correct Patient Yes Yes -Correct Side, Site, Position Yes Yes -Correct Procedure Yes Yes -Procedure Performed Yes Yes -Type of Procedure Debridement Debridement -Clinical Debridement Subcutaneous Subcutaneous -Post Debridement Size (cm) - Length 13.5 14.0 -Post Debridement Size (cm) - Width 24.0 19.0 -Post Debridement Size (cm) - Depth 0.3 0.2 -Total Square Cm 324.00 266.00 -Wound/Ulcer Outcome Healed- Flap Not Healed -Ulcer Cleansing Rinsed/ Rinsed/ Irrigated with Irrigated with Saline Saline -Foul Odor after Cleansing No No -Bioengineered Tissue No No -Topical Lidocaine (%) 4 -Lidocaine (ml) 15 -Bleeding Controlled with Pressure Pressure -Offloading No No -Treatment Response Procedure Procedure Tolerated Well Tolerated Well Pain Scale: 0-10 Numeric Is Patient Pain Free? Yes Yes Laterality: Left - Calf Type of Debridement: Excisional debridement Anesthesia Used: 5% Lidocaine Gel Depth: Down to and including healthy tissue, in the subcutaneous layer Percentage of wound debrided: 100 Instrument Used: 7mm curette Severity: Fat Layer Exposed Amount of bleeding with debridement: Mild Bleeding Controlled with: Compression and gauze Patient tolerated procedure well Assessment/Plan Active Problems Chronic venous hypertension with inflammation involving left side (Chronic) Left leg swelling (Chronic) Varicose veins with ulcer and inflammation (Chronic) Leg edema, left (Chronic) Chronic venous insufficiency (Chronic) Lymphedema of left leg (Chronic) 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 She has a large irregular ulceration on the left lower extremity which is related to her venous disease. The patient has demonstrated slow but progressive improvement. The ulceration appears to be somewhat larger, with loss of epithelialized areas, and evidence of enhanced drainage from the ulceration, which is green in color. We are to continue leg elevation, avoidance of idle standing and sitting, compression by means of SurePress, active lifestyle, weight control measures,etc. She is to continue to take a well-balanced, nutritious diet. We are to continue with the use of Silvadene topically. This will be applied topically on a daily basis. Plan: As above. The patient will return in 2 weeks for reevaluation. We are to continue Silvadene topically. Compression will be continued by means of SurePress which will be applied daily. We will await the results of cultures, obtained today. Current measures include leg elevation, avoidance of idle standing and sitting, activity as tolerated, weight control, and compression by means of SurePress, applied by the patient on a daily basis. She is to continue with the use of XtraSorb for moisture control. The ulceration continues to be exudative, and the patient has been encouraged to enhance the amount of time spent elevating her lower extremity, to help minimize the drainage. Unfortunately, due in part to insurance reasons, the patient has had some difficulties in obtaining the XtraSorb, which is a highly absorptive and wicking dressing. As result of her inability to obtain the product recently, there has been some deterioration in the patient's highly exudative ulceration, certainly a detriment to the patient's management. The patient's current DME providers I suggested she use ABD pads, which are not nearly as absorptive or working as XtraSorb or other similar products. Our nursing staff is to make every effort to assist patient in obtaining the appropriate dressing materials, otherwise the patient will likely suffer setbacks and delays in the healing process. Current products are becoming saturated, and draining heavily down her leg due to the effects of gravity. Either XtraSorb or comparable dressing materials will be necessary to prevent undesired deterioration of her ulcer. Patient is to continue the use of Vasculera orally on a daily basis. Nutritional optimization has been recommended. We may consider the use of PuraPly in the near future, if preauthorized by the patient's insurance. Patient weight is 160 pounds. Patient is 5 feet 9 inches tall. BMI is 23.6. We have discussed weight loss issues, the patient does not require counseling, as her BMI is reasonable. The patient is not a smoker. Influenza vaccine was not administered.
== END 2018-10-11 23:59 ==
LOC: WC 12:30
PROVIDERS: Visit Provider Surgery
DX: I83.222 Varicose veins of left lower extremity with both ulcer of calf and inflammation (principal); R60.0 Localized edema; L97.222 Non-pressure chronic ulcer of left calf with fat layer exposed; M79.89 Other specified soft tissue disorders; I87.1 Compression of vein; I89.0 Lymphedema, not elsewhere classified; Z86.718 Personal history of other venous thrombosis and embolism
CPT/HCPCS: 11042; 11045

== ENCOUNTER 2018-11-08 12:00 | Outpatient (RCR) | payer MEDICARE, BC, SELFPAY ==
[2018-10-12 00:38] VITALS: BP 149/91; PULSE 70; RESP 18; TEMP 36.6
--- NOTE | 2018-10-14 12:11 | WC ---
Call to [facility] regarding dressing supplies received. Foam dressings received are not absorbing drainage, but leaking at the distal border with soiling and staining of clothing. Patient has been using Xtra-Sorb absorbant dressings, but has been informed this is no longer available since their supplier has recently closed (that's why application to [facility] was initiated). These dressings are, and have been on a daily basis along with application of 1% Silvadene Cream. Medical Records Request for notes (latest Wound Center Progress Note, and Wound Measurements (10/01/18)) e-mailed to [place] [employer] C/o Rogerio Dial.
[2018-10-25 12:23] VITALS: BP 141/75; PULSE 72; RESP 16; TEMP 36.1
--- NOTE | 2018-10-25 13:13 | HP.PCM_ITS ---
(1) Chronic venous hypertension with inflammation involving left side Status: Chronic Current Visit: Yes Code(s): I87.322 - Chronic venous hypertension (idiopathic) with inflammation of left lower extremity (2) Left leg swelling Status: Chronic Current Visit: Yes Code(s): M79.89 - Other specified soft tissue disorders (3) Varicose veins with ulcer and inflammation Status: Chronic Current Visit: Yes Code(s): I83.209 - Varicose veins of unspecified lower extremity with both ulcer of unspecified site and inflammation; L97.909 - Non-pressure chronic ulcer of unspecified part of unspecified lower leg with unspecified severity (4) Leg edema, left Status: Chronic Current Visit: Yes Code(s): R60.0 - Localized edema (5) May-Thurner syndrome Status: Resolved Current Visit: No Code(s): I87.1 - Compression of vein (6) History of DVT (deep vein thrombosis) Status: Chronic Current Visit: Yes Code(s): Z86.718 - Personal history of other venous thrombosis and embolism Comment: left lower ext (7) Chronic venous insufficiency Status: Chronic Current Visit: Yes (8) Lymphedema of left leg Status: Chronic Current Visit: Yes Code(s): I89.0 - Lymphedema, not elsewhere classified (9) 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 Status: Chronic Current Visit: Yes Code(s): I87.039 - Postthrombotic syndrome with ulcer and inflammation of unspecified lower extremity (10) Calf ulcer Status: Chronic Current Visit: Yes Qualifiers: Laterality: left Non-pressure ulcer stage: with fat layer exposed Qualified Code(s): L97.222 - Non-pressure chronic ulcer of left calf with fat layer exposed Code(s): L97.209 - Non-pressure chronic ulcer of unspecified calf with unspecified severity (11) chronic left lower ext wound Status: Chronic Current Visit: Yes History of Present Illness Chief Complaint: Chronic venous insufficiency, chronic venous hypertension with inflammation and ulceration, varicose veins with inflammation and ulceration, post phlebitic syndrome with inflammation and ulceration,leg swelling, leg edema, lymphedema, venous stasis ulceration-left lower extremity History of Wound: This is a 78-year-old white female with a long-standing history of chronic venous disease and swelling in her left lower extremity. This has been present for many years. She has a large ulceration located between her left knee and ankle, which is quite large and irregular in shape, and also highly exudative. 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 She has also previously undergone successful endovenous laser ablation of the left great and small saphenous veins. Healing of the patient's left lower extremity ulceration has been slow, but progressive. A number of healing measures have been implemented in the past, without success. We are currently using Silvadene topically and Xtrasorb for absorption of exudate. 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 (Chronic) chronic left lower ext wound (Chronic) Surgical History: appendectomy, hysterectomy Allergies/Adverse Reactions: Allergies Latex, Natural Rubber Allergy (Verified 07/12/13 11:34) Rash Sulfa (Sulfonamide Antibiotics) Allergy (Verified 07/12/13 11:34) Hives trimethoprim Allergy (Verified 07/12/13 11:34) Hives Home Medications: Ambulatory Orders Medication Instructions Recorded Aspirin [Aspirin, Baby] 81 mg PO DAILY@0800 07/12/13 Calcium Carb/Vitamin D [Os-Mo 1 tablet PO DAILY@0800 07/12/13 500MG + D] Clopidogrel Bisulfate [Plavix] 75 mg PO DAILY 07/12/13 Doxepin HCl [Sinequan] 100 mg PO BID 07/12/13 Doxycycline Monohydrate [Monodox] 100 mg PO BID 07/12/13 [place]-3 Fatty Acids/Fish Oil [Fish 1 each PO DAILY 07/12/13 Oil 1,000 mg Softgel] Vitamin B12 500 mg PO DAILY 07/12/13 Vitamin C 500 mg PO DAILY 07/12/13 proMETHazine soln (6.25mg/5mL) 5 ml PO Q4H PRN PRN 07/12/13 [Phenergan Plain] Prednisone [PredniSONE] 200 mg PO DAILY 07/03/14 Valacyclovir HCl [Valacyclovir] 500 mg PO DAILY 07/03/14 Smoking Status: Never smoker Tobacco Use: Non-smoker Review of Systems Constitutional: Denies: Chills, Fever, Weight Change Eyes: Denies: Pain, Vision Change HEENT: Denies: Difficulty Hearing, Difficulty Swallowing, Sinus Congestion Cardiovascular: Denies: Chest Pain, Palpitations Respiratory: Denies: Cough, Shortness of Breath Gastrointestinal: Denies: Diarrhea, Nausea, Vomiting Genitourinary: Denies: Dysuria, Hematuria Endocrine: Denies: Heat/ Cold Intolerance, Polydipsia, Polyuria Hematologic/ Lymphatic: Denies: Easy Bruising, Easy Bleeding - Physical Exam Vital Signs Temp Pulse Resp BP 96.9 F L 72 16 141/75 H 10/25/18 12:23 10/25/18 12:23 10/25/18 12:23 10/25/18 12:23 General: Alert, Oriented x3, Cooperative, No apparent distress, Well developed, Well nourished HEENT: Atraumatic, PERRLA, EOMI, Normocephalic Oral: Moist Mucosa Neck: No JVD Lungs: Normal air movement Abdomen: Non-Distended Extremities: No clubbing, No cyanosis, No Calf Tenderness, - - Swelling and edema persist in the left lower extremity. It is most notable on the dorsum of the left foot, which is chronic. The ulceration of the left calf persists as well. It is highly irregular and shape. Tensions are documented elsewhere. There are areas of increasing epithelialization. There is no sign of infection or cellulitis. There is a moderate amount of bioburden. Skin: No rashes Wound Measurements and Assessment - Nurse 1 - General Ulcer Measurement Start: 10/25/18 12:23 Freq: Status: Active Protocol: Activity Type Activity Date Activity User E-Sign Co-Sign Detail Recorded Client Recorded Date Recorded By Document 10/25/18 12:23 [id number] 10/25/18 12:37 10/25/18 12:23 Wound Center Nurse 1 [Ulcer Assessment] #5 LLE- Circumfrential -Combined with other wound No -Current Size (cm) - Length 15.9 -Current Size (cm) - Width 24.2 -Current Size (cm) - Depth 0.3 -Total Square Cm 384.78 -Photo Taken No -Epithelialization None Present -Tunneling No -Undermining/Tunneling No -Circular Undermining No -Exudate Amt Large -Exudate Type Serosanguineous -Wound Margin Distinct, Outline Attached -Granulation Amt Large (67-100%) -Granulation Quality Pale [place] -Slough/Fibrin Yes -Necrosis Amt Large (67-100%) -Necrotic Tissue Type Adherent Slough -Structure Exposed None/Limited to Skin Breakdown -Texture (Nahomy-wound Skin Appearance) Localized Edema Scarring -Moisture (Nahomy-wound Skin Appearance Maceration ) Weeping -Color (Nahomy-wound Skin Appearance) Erythema -Temperature (Nahomy-wound Skin No Abnormality Appearance) (Pt Warm) -Tenderness on Palpation (Nahomy-wound Yes Skin Appearance) -Ulcer Cleansing soap -Foul Odor after Cleansing No -Anesthetic Used 4% Lidocaine Solution [Edema Assessment] -Lower Limb Edema Present Yes -Left Calf (cm) 43 -Left Ankle (cm) 26 WC - Nurse 2 - General Ulcer CM Notes Start: 10/25/18 12:23 Freq: Status: Active Protocol: Activity Type Activity Date Activity User E-Sign Co-Sign Detail Recorded Client Recorded Date Recorded By Document 10/25/18 13:01 DV [id number] 10/25/18 13:06 DV 10/25/18 13:01 Wound Center Nurse 2 [Procedure/Treatment] #5 LLE- Circumfrential -Time 13:02 -Correct Patient Yes -Correct Side, Site, Position Yes -Correct Procedure Yes -Procedure Performed Yes -Type of Procedure Debridement -Clinical Debridement Subcutaneous -Post Debridement Size (cm) - Length 16.5 -Post Debridement Size (cm) - Width 24.0 -Post Debridement Size (cm) - Depth 0.3 -Total Square Cm 396.00 -Wound/Ulcer Outcome Not Healed -Ulcer Cleansing Rinsed/ Irrigated with Saline -Foul Odor after Cleansing No -Bioengineered Tissue No -Bleeding Controlled with Pressure -Offloading No -Treatment Response Procedure Tolerated Well [See Physician Procedure note for Specifics] Pain Scale: 0-10 Numeric [Pain] -Is Patient Pain Free? Yes Musculoskeletal: No Muscle Wasting Neurological: Cranial nerves II-XII grossly intact, Neuro grossly intact Psych/Mental Status: Normal Affect, Appropriate, Alert and oriented to time, place, person, mood and affect Debridement Note Post-Debridement Measurements/Treatment WC - Nurse 2 - General Ulcer CM Notes Start: 10/25/18 12:23 Freq: Status: Active Protocol: Activity Type Activity Date Activity User E-Sign Co-Sign Detail Recorded Client Recorded Date Recorded By Document 10/25/18 13:01 DV [id number] 10/25/18 13:06 DV 10/25/18 13:01 Wound Center Nurse 2 #5 LLE- Circumfrential -Time 13:02 -Correct Patient Yes -Correct Side, Site, Position Yes -Correct Procedure Yes -Procedure Performed Yes -Type of Procedure Debridement -Clinical Debridement Subcutaneous -Post Debridement Size (cm) - Length 16.5 -Post Debridement Size (cm) - Width 24.0 -Post Debridement Size (cm) - Depth 0.3 -Total Square Cm 396.00 -Wound/Ulcer Outcome Not Healed -Ulcer Cleansing Rinsed/ Irrigated with Saline -Foul Odor after Cleansing No -Bioengineered Tissue No -Bleeding Controlled with Pressure -Offloading No -Treatment Response Procedure Tolerated Well Pain Scale: 0-10 Numeric Is Patient Pain Free? Yes Laterality: Left - Calf Type of Debridement: Excisional debridement Anesthesia Used: 5% Lidocaine Gel Depth: Down to and including healthy tissue, in the subcutaneous layer Percentage of wound debrided: 100 Instrument Used: 3mm curette Severity: Fat Layer Exposed Amount of bleeding with debridement: Mild Bleeding Controlled with: Compression and gauze Patient tolerated procedure well Assessment/Plan Active Problems Chronic venous hypertension with inflammation involving left side (Chronic) Left leg swelling (Chronic) Varicose veins with ulcer and inflammation (Chronic) Leg edema, left (Chronic) History of DVT (deep vein thrombosis) (Chronic) left lower ext Chronic venous insufficiency (Chronic) Lymphedema of left leg (Chronic) 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 She has a large irregular ulceration on the left lower extremity which is related to her venous disease. The patient has demonstrated slow but progressive improvement. The ulceration appears to be somewhat larger, with loss of epithelialized areas, and evidence of enhanced drainage from the ulceration, which is green in color. We are to continue leg elevation, avoidance of idle standing and sitting, compression by means of SurePress, active lifestyle, weight control measures,etc. She is to continue to take a well-balanced, nutritious diet. We are to continue with the use of Silvadene topically. This will be applied topically on a daily basis. Plan: As above. The patient will return in 2 weeks for reevaluation. We are to continue Silvadene topically. Compression will be continued by means of SurePress which will be applied daily. Current measures include leg elevation, avoidance of idle standing and sitting, activity as tolerated, weight control, and compression by means of SurePress, applied by the patient on a daily basis. She is to continue with the use of XtraSorb for moisture control. The ulceration continues to be exudative, and the patient has been encouraged to enhance the amount of time spent elevating her lower extremity, to help minimize the drainage. Patient is to continue the use of Vasculera orally on a daily basis. Nutritional optimization has been recommended. We may consider the use of PuraPly in the near future, if preauthorized by the patient's insurance. Patient weight is 160 pounds. Patient is 5 feet 9 inches tall. BMI is 23.6. We have discussed weight loss issues, the patient does not require counseling, as her BMI is reasonable. The patient is not a smoker. Influenza vaccine was not administered.
[2018-11-08 12:03] VITALS: BP 134/91; PULSE 72; RESP 16; TEMP 36.6
--- NOTE | 2018-11-08 12:38 | PCM.WC.HP ---
(1) Chronic venous hypertension with inflammation involving left side Status: Chronic Current Visit: Yes Code(s): I87.322 - Chronic venous hypertension (idiopathic) with inflammation of left lower extremity (2) Left leg swelling Status: Chronic Current Visit: Yes Code(s): M79.89 - Other specified soft tissue disorders (3) Varicose veins with ulcer and inflammation Status: Chronic Current Visit: Yes Code(s): I83.209 - Varicose veins of unspecified lower extremity with both ulcer of unspecified site and inflammation; L97.909 - Non-pressure chronic ulcer of unspecified part of unspecified lower leg with unspecified severity (4) Leg edema, left Status: Chronic Current Visit: Yes Code(s): R60.0 - Localized edema (5) History of DVT (deep vein thrombosis) Status: Chronic Current Visit: Yes Code(s): Z86.718 - Personal history of other venous thrombosis and embolism Comment: left lower ext (6) Chronic venous insufficiency Status: Chronic Current Visit: Yes (7) Lymphedema of left leg Status: Chronic Current Visit: Yes Code(s): I89.0 - Lymphedema, not elsewhere classified (8) 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 Status: Chronic Current Visit: Yes Code(s): I87.039 - Postthrombotic syndrome with ulcer and inflammation of unspecified lower extremity (9) Calf ulcer Status: Chronic Current Visit: Yes Qualifiers: Laterality: left Non-pressure ulcer stage: with fat layer exposed Qualified Code(s): L97.222 - Non-pressure chronic ulcer of left calf with fat layer exposed Code(s): L97.209 - Non-pressure chronic ulcer of unspecified calf with unspecified severity (10) chronic left lower ext wound Status: Chronic Current Visit: Yes History of Present Illness Chief Complaint: Chronic venous insufficiency, chronic venous hypertension with inflammation and ulceration, varicose veins with inflammation and ulceration, post phlebitic syndrome with inflammation and ulceration,leg swelling, leg edema, lymphedema, venous stasis ulceration-left lower extremity History of Wound: This is a 78-year-old white female with a long-standing history of chronic venous disease and swelling in her left lower extremity. This has been present for many years. She has a large ulceration located between her left knee and ankle, which is quite large and irregular in shape, and also highly exudative. 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 She has also previously undergone successful endovenous laser ablation of the left great and small saphenous veins. Healing of the patient's left lower extremity ulceration has been slow, but progressive. A number of healing measures have been implemented in the past, without success. We are currently using Silvadene topically and Xtrasorb for absorption of exudate. 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 (Chronic) chronic left lower ext wound (Chronic) Surgical History: appendectomy, hysterectomy Allergies/Adverse Reactions: Allergies Latex, Natural Rubber Allergy (Verified 07/12/13 11:34) Rash Sulfa (Sulfonamide Antibiotics) Allergy (Verified 07/12/13 11:34) Hives trimethoprim Allergy (Verified 07/12/13 11:34) Hives Home Medications: Ambulatory Orders Medication Instructions Recorded Aspirin [Aspirin, Baby] 81 mg PO DAILY@0800 07/12/13 Calcium Carb/Vitamin D [Os-Mo 1 tablet PO DAILY@0800 07/12/13 500MG + D] Clopidogrel Bisulfate [Plavix] 75 mg PO DAILY 07/12/13 Doxepin HCl [Sinequan] 100 mg PO BID 07/12/13 Doxycycline Monohydrate [Monodox] 100 mg PO BID 07/12/13 [place]-3 Fatty Acids/Fish Oil [Fish 1 each PO DAILY 07/12/13 Oil 1,000 mg Softgel] Vitamin B12 500 mg PO DAILY 07/12/13 Vitamin C 500 mg PO DAILY 07/12/13 proMETHazine soln (6.25mg/5mL) 5 ml PO Q4H PRN PRN 07/12/13 [Phenergan Plain] Prednisone [PredniSONE] 200 mg PO DAILY 07/03/14 Valacyclovir HCl [Valacyclovir] 500 mg PO DAILY 07/03/14 Smoking Status: Never smoker Tobacco Use: Non-smoker Review of Systems Constitutional: Denies: Chills, Fever, Weight Change Eyes: Denies: Pain, Vision Change HEENT: Denies: Difficulty Hearing, Difficulty Swallowing, Sinus Congestion Cardiovascular: Denies: Chest Pain, Palpitations Respiratory: Denies: Cough, Shortness of Breath Gastrointestinal: Denies: Diarrhea, Nausea, Vomiting Genitourinary: Denies: Dysuria, Hematuria Endocrine: Denies: Heat/ Cold Intolerance, Polydipsia, Polyuria Hematologic/ Lymphatic: Denies: Easy Bruising, Easy Bleeding - Physical Exam Vital Signs Temp Pulse Resp BP 97.8 F 72 16 134/91 H 11/08/18 12:03 11/08/18 12:03 11/08/18 12:03 11/08/18 12:03 General: Alert, Oriented x3, Cooperative, No apparent distress, Well developed, Well nourished HEENT: Atraumatic, PERRLA, EOMI, Normocephalic Oral: Moist Mucosa Neck: No JVD Lungs: Normal air movement Abdomen: Non-Distended Extremities: No clubbing, No cyanosis, No Calf Tenderness, Edema, - - Swelling and edema persist in the patient's left lower extremity. This is most notable on the dorsum of the left foot. This has been chronic in nature. The ulceration of the left calf persists as well, little changed in appearance. However, there are increasing areas of epithelialization. Dimensions are documented elsewhere. There is no sign of infection or cellulitis. There is a moderate amount of bioburden. Skin: No rashes Wound Measurements and Assessment WC - Nurse 1 - General Ulcer Measurement Start: 10/25/18 12:23 Freq: Status: Active Protocol: Activity Type Activity Date Activity User E-Sign Co-Sign Detail Recorded Client Recorded Date Recorded By Document 11/08/18 12:03 TANYA [id number] 11/08/18 12:09 TANYA 11/08/18 12:03 Wound Center Nurse 1 [Ulcer Assessment] #5 LLE- Circumfrential -Combined with other wound No -Current Size (cm) - Length 11 -Current Size (cm) - Width 24.2 -Current Size (cm) - Depth 0.1 -Total Square Cm 266.2 -Photo Taken No -Epithelialization None Present -Tunneling No -Undermining/Tunneling No -Circular Undermining No -Exudate Amt Large -Exudate Type Serosanguineous -Wound Margin Flat & Intact -Granulation Amt Medium (34-66%) -Granulation Quality Red -Slough/Fibrin Yes -Necrosis Amt Medium (34-66%) -Necrotic Tissue Type Adherent Slough -Structure Exposed N/A -Texture (Nahomy-wound Skin Appearance) Assessed Localized Edema Scarring -Moisture (Nahomy-wound Skin Appearance Assessed ) Dry/Scaly -Color (Nahomy-wound Skin Appearance) Assessed Hemosiderin Staining -Temperature (Nahomy-wound Skin No Abnormality Appearance) (Pt Warm) -Tenderness on Palpation (Nahomy-wound No Skin Appearance) -Ulcer Cleansing Wound Cleanser -Foul Odor after Cleansing No -Anesthetic Used 4% Lidocaine Solution [Edema Assessment] -Lower Limb Edema Present Yes -Left Calf (cm) 40.5 -Left Ankle (cm) 23.6 WC - Nurse 2 - General Ulcer CM Notes Start: 10/25/18 12:23 Freq: Status: Active Protocol: Activity Type Activity Date Activity User E-Sign Co-Sign Detail Recorded Client Recorded Date Recorded By Document 11/08/18 12:28 MW [id number] 11/08/18 12:33 MW 11/08/18 12:28 Wound Center Nurse 2 [Procedure/Treatment] #5 LLE- Circumfrential -Time 12:29 -Correct Patient Yes -Correct Side, Site, Position Yes -Correct Procedure Yes -Procedure Performed Yes -Type of Procedure Debridement -Clinical Debridement Subcutaneous -Post Debridement Size (cm) - Length 15.0 -Post Debridement Size (cm) - Width 24.2 -Post Debridement Size (cm) - Depth 0.1 -Total Square Cm 363.00 -Wound/Ulcer Outcome Not Healed -Ulcer Cleansing Rinsed/ Irrigated with Saline -Foul Odor after Cleansing No -Bioengineered Tissue No -Bleeding Controlled with Pressure -Offloading No -Treatment Response Procedure Tolerated Well [See Physician Procedure note for Specifics] Pain Scale: 0-10 Numeric [Pain] -Is Patient Pain Free? Yes Musculoskeletal: No Muscle Wasting Neurological: Cranial nerves II-XII grossly intact, Neuro grossly intact Psych/Mental Status: Normal Affect, Appropriate, Alert and oriented to time, place, person, mood and affect Debridement Note Post-Debridement Measurements/Treatment WC - Nurse 2 - General Ulcer CM Notes Start: 10/25/18 12:23 Freq: Status: Active Protocol: Activity Type Activity Date Activity User E-Sign Co-Sign Detail Recorded Client Recorded Date Recorded By Document 10/25/18 13:01 DV [id number] 10/25/18 13:06 DV Document 11/08/18 12:28 MW [id number] 11/08/18 12:33 MW 10/25/18 11/08/18 13:01 12:28 Wound Center Nurse 2 #5 LLE- Circumfrential -Time 13:02 12:29 -Correct Patient Yes Yes -Correct Side, Site, Position Yes Yes -Correct Procedure Yes Yes -Procedure Performed Yes Yes -Type of Procedure Debridement Debridement -Clinical Debridement Subcutaneous Subcutaneous -Post Debridement Size (cm) - Length 16.5 15.0 -Post Debridement Size (cm) - Width 24.0 24.2 -Post Debridement Size (cm) - Depth 0.3 0.1 -Total Square Cm 396.00 363.00 -Wound/Ulcer Outcome Not Healed Not Healed -Ulcer Cleansing Rinsed/ Rinsed/ Irrigated with Irrigated with Saline Saline -Foul Odor after Cleansing No No -Bioengineered Tissue No No -Bleeding Controlled with Pressure Pressure -Offloading No No -Treatment Response Procedure Procedure Tolerated Well Tolerated Well Pain Scale: 0-10 Numeric Is Patient Pain Free? Yes Yes Laterality: Left - Calf Type of Debridement: Excisional debridement Anesthesia Used: 5% Lidocaine Gel Depth: Down to and including healthy tissue, in the subcutaneous layer Percentage of wound debrided: 100 Instrument Used: 5mm curette Severity: Fat Layer Exposed Amount of bleeding with debridement: Mild Bleeding Controlled with: Compression and gauze Patient tolerated procedure well Assessment/Plan Active Problems Chronic venous hypertension with inflammation involving left side (Chronic) Left leg swelling (Chronic) Varicose veins with ulcer and inflammation (Chronic) Leg edema, left (Chronic) History of DVT (deep vein thrombosis) (Chronic) left lower ext Chronic venous insufficiency (Chronic) Lymphedema of left leg (Chronic) 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 She has a large irregular ulceration on the left lower extremity which is related to her venous disease. The patient has demonstrated slow but progressive improvement. The ulceration appears to be somewhat larger, with loss of epithelialized areas, and evidence of enhanced drainage from the ulceration, which is green in color. We are to continue leg elevation, avoidance of idle standing and sitting, compression by means of SurePress, active lifestyle, weight control measures,etc. She is to continue to take a well-balanced, nutritious diet. We are to continue with the use of Silvadene topically. This will be applied topically on a daily basis. Plan: As above. The patient will return in 2 weeks for reevaluation. We are to continue Silvadene topically. Compression will be continued by means of SurePress which will be applied daily. Current measures include leg elevation, avoidance of idle standing and sitting, activity as tolerated, weight control, and compression by means of SurePress, applied by the patient on a daily basis. She is to continue with the use of XtraSorb for moisture control. The ulceration continues to be exudative, and the patient has been encouraged to enhance the amount of time spent elevating her lower extremity, to help minimize the drainage. Patient is to continue the use of Vasculera orally on a daily basis. Nutritional optimization has been recommended. We may consider the use of PuraPly in the near future, if preauthorized by the patient's insurance. Patient weight is 160 pounds. Patient is 5 feet 9 inches tall. BMI is 23.6. We have discussed weight loss issues, the patient does not require counseling, as her BMI is reasonable. The patient is not a smoker. Influenza vaccine was not administered.
== END 2018-11-11 23:59 ==
LOC: WC 12:00
PROVIDERS: Visit Provider Surgery
DX: I83.222 Varicose veins of left lower extremity with both ulcer of calf and inflammation (principal); L97.222 Non-pressure chronic ulcer of left calf with fat layer exposed; Z86.718 Personal history of other venous thrombosis and embolism; I89.0 Lymphedema, not elsewhere classified; Z79.899 Other long term (current) drug therapy; Z79.02 Long term (current) use of antithrombotics/antiplatelets; Z79.82 Long term (current) use of aspirin; Z79.52 Long term (current) use of systemic steroids
CPT/HCPCS: 11042; 11045; 99213; G0463

== ENCOUNTER 2018-12-06 12:30 | Outpatient (RCR) | payer MEDICARE, BC, SELFPAY ==
[2018-11-12 01:01] VITALS: BP 134/91; PULSE 72; RESP 16; TEMP 36.6
[2018-11-22 12:32] VITALS: BP 148/79; PULSE 72; RESP 16; TEMP 36.3
--- NOTE | 2018-11-22 13:04 | PCM.WC.HP ---
(1) Chronic venous hypertension with inflammation involving left side Status: Chronic Current Visit: Yes Code(s): I87.322 - Chronic venous hypertension (idiopathic) with inflammation of left lower extremity (2) Left leg swelling Status: Chronic Current Visit: Yes Code(s): M79.89 - Other specified soft tissue disorders (3) Varicose veins with ulcer and inflammation Status: Chronic Current Visit: Yes Code(s): I83.209 - Varicose veins of unspecified lower extremity with both ulcer of unspecified site and inflammation; L97.909 - Non-pressure chronic ulcer of unspecified part of unspecified lower leg with unspecified severity (4) Leg edema, left Status: Chronic Current Visit: Yes Code(s): R60.0 - Localized edema (5) May-Thurner syndrome Status: Resolved Current Visit: No Code(s): I87.1 - Compression of vein (6) History of DVT (deep vein thrombosis) Status: Chronic Current Visit: Yes Code(s): Z86.718 - Personal history of other venous thrombosis and embolism Comment: left lower ext (7) dermatomycosis leg Status: Resolved Current Visit: No (8) Cellulitis, leg Status: Resolved Current Visit: No Qualifiers: Code(s): L03.119 - Cellulitis of unspecified part of limb (9) Erythema of skin Status: Resolved Current Visit: No Code(s): L53.9 - Erythematous condition, unspecified (10) Cellulitis of leg Status: Resolved Current Visit: No Qualifiers: Code(s): L03.119 - Cellulitis of unspecified part of limb (11) Cellulitis Status: Resolved Current Visit: No Code(s): L03.90 - Cellulitis, unspecified (12) Chronic venous insufficiency Status: Chronic Current Visit: Yes (13) Lymphedema of left leg Status: Chronic Current Visit: Yes Code(s): I89.0 - Lymphedema, not elsewhere classified (14) 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 Status: Chronic Current Visit: Yes Code(s): I87.039 - Postthrombotic syndrome with ulcer and inflammation of unspecified lower extremity (15) Calf ulcer Status: Chronic Current Visit: Yes Qualifiers: Non-pressure ulcer stage: with fat layer exposed Code(s): L97.209 - Non-pressure chronic ulcer of unspecified calf with unspecified severity (16) chronic left lower ext wound Status: Chronic Current Visit: Yes History of Present Illness Chief Complaint: Chronic venous insufficiency, chronic venous hypertension with inflammation and ulceration, varicose veins with inflammation and ulceration, post phlebitic syndrome with inflammation and ulceration,leg swelling, leg edema, lymphedema, venous stasis ulceration-left lower extremity History of Wound: This is a 78-year-old white female with a long-standing history of chronic venous disease and swelling in her left lower extremity. This has been present for many years. She has a large ulceration located between her left knee and ankle, which is quite large and irregular in shape, and also highly exudative. 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 She has also previously undergone successful endovenous laser ablation of the left great and small saphenous veins. Healing of the patient's left lower extremity ulceration has been slow, but progressive. A number of healing measures have been implemented in the past, without success. We are currently using Silvadene topically and Xtrasorb for absorption of exudate. 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 (Chronic) chronic left lower ext wound (Chronic) Surgical History: appendectomy, hysterectomy Allergies/Adverse Reactions: Allergies Latex, Natural Rubber Allergy (Verified 07/12/13 11:34) Rash Sulfa (Sulfonamide Antibiotics) Allergy (Verified 07/12/13 11:34) Hives trimethoprim Allergy (Verified 07/12/13 11:34) Hives Home Medications: Ambulatory Orders Medication Instructions Recorded Aspirin [Aspirin, Baby] 81 mg PO DAILY@0800 07/12/13 Calcium Carb/Vitamin D [Os-Mo 1 tablet PO DAILY@0800 07/12/13 500MG + D] Clopidogrel Bisulfate [Plavix] 75 mg PO DAILY 07/12/13 Doxepin HCl [Sinequan] 100 mg PO BID 07/12/13 Doxycycline Monohydrate [Monodox] 100 mg PO BID 07/12/13 [place]-3 Fatty Acids/Fish Oil [Fish 1 each PO DAILY 07/12/13 Oil 1,000 mg Softgel] Vitamin B12 500 mg PO DAILY 07/12/13 Vitamin C 500 mg PO DAILY 07/12/13 proMETHazine soln (6.25mg/5mL) 5 ml PO Q4H PRN PRN 07/12/13 [Phenergan Plain] Prednisone [PredniSONE] 200 mg PO DAILY 07/03/14 Valacyclovir HCl [Valacyclovir] 500 mg PO DAILY 07/03/14 Smoking Status: Never smoker Tobacco Use: Non-smoker Review of Systems Constitutional: Denies: Chills, Fever, Weight Change Eyes: Denies: Pain, Vision Change HEENT: Denies: Difficulty Hearing, Difficulty Swallowing, Sinus Congestion Cardiovascular: Denies: Chest Pain, Palpitations Respiratory: Denies: Cough, Shortness of Breath Gastrointestinal: Denies: Diarrhea, Nausea, Vomiting Genitourinary: Denies: Dysuria, Hematuria Endocrine: Denies: Heat/ Cold Intolerance, Polydipsia, Polyuria Hematologic/ Lymphatic: Denies: Easy Bruising, Easy Bleeding - Physical Exam Vital Signs Temp Pulse Resp BP 97.3 F L 72 16 148/79 H 11/22/18 12:32 11/22/18 12:32 11/22/18 12:32 11/22/18 12:32 General: Alert, Oriented x3, Cooperative, No apparent distress, Well developed, Well nourished HEENT: Atraumatic, PERRLA, EOMI, Normocephalic Oral: Moist Mucosa Neck: No JVD Lungs: Normal air movement Abdomen: Non-Distended Extremities: No clubbing, No cyanosis, No Calf Tenderness, Edema, - - Swelling and edema persist in the left lower extremity, most notable on the dorsum of the left foot. This is chronic in nature. The ulceration of the left calf also persists. It is highly irregular in shape and configuration. Dimensions are documented elsewhere. There is a moderate amount of bioburden and nonviable tissue. Skin: No rashes Wound Measurements and Assessment WC - Nurse 1 - General Ulcer Measurement Start: 11/22/18 12:32 Freq: Status: Active Protocol: Activity Type Activity Date Activity User E-Sign Co-Sign Detail Recorded Client Recorded Date Recorded By Document 11/22/18 12:32 MW [id number] 11/22/18 12:46 MW 11/22/18 12:32 Wound Center Nurse 1 [Ulcer Assessment] #5 LLE- Circumfrential -Combined with other wound No -Current Size (cm) - Length 15.0 -Current Size (cm) - Width 25.0 -Current Size (cm) - Depth 0.1 -Total Square Cm 375.00 -Photo Taken No -Epithelialization None Present -Tunneling No -Undermining/Tunneling No -Circular Undermining No -Exudate Amt Medium -Exudate Type Serosanguineous -Wound Margin Flat & Intact -Granulation Amt Small (1-33%) -Granulation Quality [place] -Slough/Fibrin Yes -Necrosis Amt Large (67-100%) -Necrotic Tissue Type Adherent Slough -Structure Exposed N/A -Texture (Nahomy-wound Skin Appearance) Assessed Localized Edema Scarring -Moisture (Nahomy-wound Skin Appearance Assessed ) Dry/Scaly -Color (Nahomy-wound Skin Appearance) Assessed Hemosiderin Staining -Temperature (Nahomy-wound Skin No Abnormality Appearance) (Pt Warm) -Tenderness on Palpation (Nahomy-wound No Skin Appearance) -Ulcer Cleansing Wound Cleanser -Foul Odor after Cleansing No -Anesthetic Used 5% Lidocaine Gel [Edema Assessment] -Lower Limb Edema Present No -Left Calf (cm) 40.8 -Left Ankle (cm) 24.0 WC - Nurse 2 - General Ulcer CM Notes Start: 11/22/18 12:32 Freq: Status: Active Protocol: Activity Type Activity Date Activity User E-Sign Co-Sign Detail Recorded Client Recorded Date Recorded By Document 11/22/18 12:51 MW [id number] 11/22/18 13:00 MW 11/22/18 12:51 Wound Center Nurse 2 [Procedure/Treatment] #5 LLE- Circumfrential -Time 12:54 -Correct Patient Yes -Correct Side, Site, Position Yes -Correct Procedure Yes -Procedure Performed Yes -Type of Procedure Debridement -Clinical Debridement Subcutaneous -Post Debridement Size (cm) - Length 15.1 -Post Debridement Size (cm) - Width 25.0 -Post Debridement Size (cm) - Depth 0.1 -Total Square Cm 377.50 -Wound/Ulcer Outcome Not Healed -Ulcer Cleansing Rinsed/ Irrigated with Saline -Foul Odor after Cleansing No -Bioengineered Tissue No -Bleeding Controlled with Pressure -Offloading No -Treatment Response Procedure Tolerated Well [See Physician Procedure note for Specifics] Pain Scale: 0-10 Numeric [Pain] -Is Patient Pain Free? Yes Musculoskeletal: No Muscle Wasting Neurological: Cranial nerves II-XII grossly intact, Neuro grossly intact Psych/Mental Status: Normal Affect, Appropriate, Alert and oriented to time, place, person, mood and affect Debridement Note Post-Debridement Measurements/Treatment WC - Nurse 2 - General Ulcer CM Notes Start: 11/22/18 12:32 Freq: Status: Active Protocol: Activity Type Activity Date Activity User E-Sign Co-Sign Detail Recorded Client Recorded Date Recorded By Document 11/22/18 12:51 MW [id number] 11/22/18 13:00 MW 11/22/18 12:51 Wound Center Nurse 2 #5 LLE- Circumfrential -Time 12:54 -Correct Patient Yes -Correct Side, Site, Position Yes -Correct Procedure Yes -Procedure Performed Yes -Type of Procedure Debridement -Clinical Debridement Subcutaneous -Post Debridement Size (cm) - Length 15.1 -Post Debridement Size (cm) - Width 25.0 -Post Debridement Size (cm) - Depth 0.1 -Total Square Cm 377.50 -Wound/Ulcer Outcome Not Healed -Ulcer Cleansing Rinsed/ Irrigated with Saline -Foul Odor after Cleansing No -Bioengineered Tissue No -Bleeding Controlled with Pressure -Offloading No -Treatment Response Procedure Tolerated Well Pain Scale: 0-10 Numeric Is Patient Pain Free? Yes Laterality: Left - Calf Type of Debridement: Excisional debridement Anesthesia Used: 5% Lidocaine Gel Depth: Down to and including healthy tissue, in the subcutaneous layer Percentage of wound debrided: 100 Instrument Used: 5mm curette Severity: Fat Layer Exposed Amount of bleeding with debridement: Mild Bleeding Controlled with: Compression and gauze Patient tolerated procedure well Assessment/Plan Active Problems Chronic venous hypertension with inflammation involving left side (Chronic) Left leg swelling (Chronic) Varicose veins with ulcer and inflammation (Chronic) Leg edema, left (Chronic) History of DVT (deep vein thrombosis) (Chronic) left lower ext Chronic venous insufficiency (Chronic) Lymphedema of left leg (Chronic) 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 She has a large irregular ulceration on the left lower extremity which is related to her venous disease. The patient has demonstrated slow but progressive improvement. We are to continue leg elevation, avoidance of idle standing and sitting, compression by means of SurePress, active lifestyle, weight control measures,etc. She is to continue to take a well-balanced, nutritious diet. We are to continue with the use of Silvadene topically. This will be applied topically on a daily basis. Plan: As above. The patient will return in 2 weeks for reevaluation. We are to continue Silvadene topically. Compression will be continued by means of SurePress which will be applied daily. Current measures include leg elevation, avoidance of idle standing and sitting, activity as tolerated, weight control, and compression by means of SurePress, applied by the patient on a daily basis. She is to continue with the use of XtraSorb for moisture control. The ulceration continues to be exudative, and the patient has been encouraged to enhance the amount of time spent elevating her lower extremity, to help minimize the drainage. Patient is to continue the use of Vasculera orally on a daily basis. Nutritional optimization has been recommended. We may consider the use of PuraPly in the near future, if preauthorized by the patient's insurance. Patient weight is 160 pounds. Patient is 5 feet 9 inches tall. BMI is 23.6. We have discussed weight loss issues, the patient does not require counseling, as her BMI is reasonable. The patient is not a smoker. Influenza vaccine was not administered.
[2018-12-06 12:28] VITALS: BP 140/112; PULSE 69; RESP 20; TEMP 36.6
--- NOTE | 2018-12-06 13:08 | PCM.WC.HP ---
(1) Chronic venous hypertension with inflammation involving left side Status: Chronic Current Visit: Yes Code(s): I87.322 - Chronic venous hypertension (idiopathic) with inflammation of left lower extremity (2) Left leg swelling Status: Chronic Current Visit: Yes Code(s): M79.89 - Other specified soft tissue disorders (3) Varicose veins with ulcer and inflammation Status: Chronic Current Visit: Yes Code(s): I83.209 - Varicose veins of unspecified lower extremity with both ulcer of unspecified site and inflammation; L97.909 - Non-pressure chronic ulcer of unspecified part of unspecified lower leg with unspecified severity (4) Leg edema, left Status: Chronic Current Visit: Yes Code(s): R60.0 - Localized edema (5) History of DVT (deep vein thrombosis) Status: Chronic Current Visit: Yes Code(s): Z86.718 - Personal history of other venous thrombosis and embolism Comment: left lower ext (6) Chronic venous insufficiency Status: Chronic Current Visit: Yes (7) Lymphedema of left leg Status: Chronic Current Visit: Yes Code(s): I89.0 - Lymphedema, not elsewhere classified (8) 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 Status: Chronic Current Visit: Yes Code(s): I87.039 - Postthrombotic syndrome with ulcer and inflammation of unspecified lower extremity (9) Calf ulcer Status: Chronic Current Visit: Yes Qualifiers: Non-pressure ulcer stage: with fat layer exposed Code(s): L97.209 - Non-pressure chronic ulcer of unspecified calf with unspecified severity (10) chronic left lower ext wound Status: Chronic Current Visit: Yes History of Present Illness Chief Complaint: Chronic venous insufficiency, chronic venous hypertension with inflammation and ulceration, varicose veins with inflammation and ulceration, post phlebitic syndrome with inflammation and ulceration,leg swelling, leg edema, lymphedema, venous stasis ulceration-left lower extremity History of Wound: This is a 78-year-old white female with a long-standing history of chronic venous disease and swelling in her left lower extremity. This has been present for many years. She has a large ulceration located between her left knee and ankle, which is quite large and irregular in shape, and also highly exudative. 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 She has also previously undergone successful endovenous laser ablation of the left great and small saphenous veins. Healing of the patient's left lower extremity ulceration has been slow, but progressive. A number of healing measures have been implemented in the past, without success. We are currently using Silvadene topically and Xtrasorb for absorption of exudate. 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 (Chronic) chronic left lower ext wound (Chronic) Surgical History: appendectomy, hysterectomy Allergies/Adverse Reactions: Allergies Latex, Natural Rubber Allergy (Verified 07/12/13 11:34) Rash Sulfa (Sulfonamide Antibiotics) Allergy (Verified 07/12/13 11:34) Hives trimethoprim Allergy (Verified 07/12/13 11:34) Hives Home Medications: Ambulatory Orders Medication Instructions Recorded Aspirin [Aspirin, Baby] 81 mg PO DAILY@0800 07/12/13 Calcium Carb/Vitamin D [Os-Mo 1 tablet PO DAILY@0800 07/12/13 500MG + D] Clopidogrel Bisulfate [Plavix] 75 mg PO DAILY 07/12/13 Doxepin HCl [Sinequan] 100 mg PO BID 07/12/13 Doxycycline Monohydrate [Monodox] 100 mg PO BID 07/12/13 [place]-3 Fatty Acids/Fish Oil [Fish 1 each PO DAILY 07/12/13 Oil 1,000 mg Softgel] Vitamin B12 500 mg PO DAILY 07/12/13 Vitamin C 500 mg PO DAILY 07/12/13 proMETHazine soln (6.25mg/5mL) 5 ml PO Q4H PRN PRN 07/12/13 [Phenergan Plain] Prednisone [PredniSONE] 200 mg PO DAILY 07/03/14 Valacyclovir HCl [Valacyclovir] 500 mg PO DAILY 07/03/14 Smoking Status: Never smoker Tobacco Use: Non-smoker Review of Systems Constitutional: Denies: Chills, Fever, Weight Change Eyes: Denies: Pain, Vision Change HEENT: Denies: Difficulty Hearing, Difficulty Swallowing, Sinus Congestion Cardiovascular: Denies: Chest Pain, Palpitations Respiratory: Denies: Cough, Shortness of Breath Gastrointestinal: Denies: Diarrhea, Nausea, Vomiting Genitourinary: Denies: Dysuria, Hematuria Endocrine: Denies: Heat/ Cold Intolerance, Polydipsia, Polyuria Hematologic/ Lymphatic: Denies: Easy Bruising, Easy Bleeding - Physical Exam Vital Signs Temp Pulse Resp BP 97.8 F 69 20 H 140/112 H 12/06/18 12:28 12/06/18 12:28 12/06/18 12:28 12/06/18 12:28 General: Alert, Oriented x3, Cooperative, No apparent distress, Well developed, Well nourished HEENT: Atraumatic, PERRLA, EOMI, Normocephalic Oral: Moist Mucosa Neck: No JVD Lungs: Normal air movement Abdomen: Non-Distended Extremities: No clubbing, No cyanosis, No Calf Tenderness, - - Swelling and edema persist in the left lower extremity. This is chronic in nature. It involves primarily the dorsum of the left foot. Ulceration on the left calf persists as well. It is highly irregular in nature. There is no sign of infection or cellulitis. There is a moderate amount of bioburden and nonviable tissue. Dimensions are documented elsewhere. There is evidence of increasing areas of epithelialization. Skin: No rashes Wound Measurements and Assessment WC - Nurse 1 - General Ulcer Measurement Start: 11/22/18 12:32 Freq: Status: Active Protocol: Activity Type Activity Date Activity User E-Sign Co-Sign Detail Recorded Client Recorded Date Recorded By Document 12/06/18 12:28 DL [id number] 12/06/18 12:40 DL 12/06/18 12:28 Wound Center Nurse 1 [Ulcer Assessment] #5 LLE- Circumfrential -Current Size (cm) - Length 11.2 -Current Size (cm) - Width 21 -Current Size (cm) - Depth 0.1 -Total Square Cm 235.2 -Photo Taken No -Exudate Amt Medium -Exudate Type Serosanguineous -Wound Margin Indistinct, Non -Visible -Granulation Amt Medium (34-66%) -Granulation Quality Red -Necrosis Amt Medium (34-66%) -Necrotic Tissue Type Adherent Slough -Structure Exposed N/A -Texture (Nahomy-wound Skin Appearance) Localized Edema Scarring -Moisture (Nahomy-wound Skin Appearance No Abnormality ) -Temperature (Nahomy-wound Skin No Abnormality Appearance) (Pt Warm) -Tenderness on Palpation (Nahomy-wound No Skin Appearance) -Ulcer Cleansing Wound Cleanser -Foul Odor after Cleansing No -Anesthetic Used 4% Lidocaine Solution [Edema Assessment] -Left Calf (cm) 37 -Left Ankle (cm) 23.5 WC - Nurse 2 - General Ulcer CM Notes Start: 11/22/18 12:32 Freq: Status: Active Protocol: Activity Type Activity Date Activity User E-Sign Co-Sign Detail Recorded Client Recorded Date Recorded By Document 12/06/18 12:59 DV [id number] 12/06/18 13:05 DV 12/06/18 12:59 Wound Center Nurse 2 [Procedure/Treatment] #5 LLE- Circumfrential -Time 13:02 -Correct Patient Yes -Correct Side, Site, Position Yes -Correct Procedure Yes -Procedure Performed Yes -Type of Procedure Debridement -Clinical Debridement Subcutaneous -Post Debridement Size (cm) - Length 13.0 -Post Debridement Size (cm) - Width 21.0 -Post Debridement Size (cm) - Depth 0.2 -Total Square Cm 273.00 -Wound/Ulcer Outcome Not Healed -Ulcer Cleansing Rinsed/ Irrigated with Saline -Foul Odor after Cleansing No -Bioengineered Tissue No -Bleeding Controlled with Pressure -Offloading No -Treatment Response Procedure Tolerated Well [See Physician Procedure note for Specifics] Pain Scale: 0-10 Numeric [Pain] -Is Patient Pain Free? Yes Neurological: Cranial nerves II-XII grossly intact, Neuro grossly intact Psych/Mental Status: Normal Affect, Appropriate, Alert and oriented to time, place, person, mood and affect Debridement Note Post-Debridement Measurements/Treatment - Nurse 2 - General Ulcer CM Notes Start: 11/22/18 12:32 Freq: Status: Active Protocol: Activity Type Activity Date Activity User E-Sign Co-Sign Detail Recorded Client Recorded Date Recorded By Document 11/22/18 12:51 MW [id number] 11/22/18 13:00 MW Document 12/06/18 12:59 DV [id number] 12/06/18 13:05 DV 11/22/18 12/06/18 12:51 12:59 Wound Center Nurse 2 #5 LLE- Circumfrential -Time 12:54 13:02 -Correct Patient Yes Yes -Correct Side, Site, Position Yes Yes -Correct Procedure Yes Yes -Procedure Performed Yes Yes -Type of Procedure Debridement Debridement -Clinical Debridement Subcutaneous Subcutaneous -Post Debridement Size (cm) - Length 15.1 13.0 -Post Debridement Size (cm) - Width 25.0 21.0 -Post Debridement Size (cm) - Depth 0.1 0.2 -Total Square Cm 377.50 273.00 -Wound/Ulcer Outcome Not Healed Not Healed -Ulcer Cleansing Rinsed/ Rinsed/ Irrigated with Irrigated with Saline Saline -Foul Odor after Cleansing No No -Bioengineered Tissue No No -Bleeding Controlled with Pressure Pressure -Offloading No No -Treatment Response Procedure Procedure Tolerated Well Tolerated Well Pain Scale: 0-10 Numeric Is Patient Pain Free? Yes Yes Laterality: Left - Calf Type of Debridement: Excisional debridement Anesthesia Used: 5% Lidocaine Gel Depth: Down to and including healthy tissue, in the subcutaneous layer Percentage of wound debrided: 100 Instrument Used: 5mm curette Severity: Fat Layer Exposed Amount of bleeding with debridement: Mild Bleeding Controlled with: Compression and gauze Patient tolerated procedure well Assessment/Plan Active Problems Chronic venous hypertension with inflammation involving left side (Chronic) Left leg swelling (Chronic) Varicose veins with ulcer and inflammation (Chronic) Leg edema, left (Chronic) History of DVT (deep vein thrombosis) (Chronic) left lower ext Chronic venous insufficiency (Chronic) Lymphedema of left leg (Chronic) 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 She has a large irregular ulceration on the left lower extremity which is related to her venous disease. The patient has demonstrated slow but progressive improvement. We are to continue leg elevation, avoidance of idle standing and sitting, compression by means of SurePress, active lifestyle, weight control measures,etc. She is to continue to take a well-balanced, nutritious diet. We are to continue with the use of Silvadene topically. This will be applied topically on a daily basis. Plan: As above. The patient will return in 2 weeks for reevaluation. We are to continue Silvadene topically. Compression will be continued by means of SurePress which will be applied daily. Current measures include leg elevation, avoidance of idle standing and sitting, activity as tolerated, weight control, and compression by means of SurePress, applied by the patient on a daily basis. She is to continue with the use of XtraSorb for moisture control. The ulceration continues to be exudative, and the patient has been encouraged to enhance the amount of time spent elevating her lower extremity, to help minimize the drainage. Patient is to continue the use of Vasculera orally on a daily basis. Nutritional optimization has been recommended. We may consider the use of PuraPly in the near future, if preauthorized by the patient's insurance. Her prescription for Dilaudid has been renewed, as the patient uses this only as a prelude to her clinic visits, prior to anticipated debridements. Patient weight is 160 pounds. Patient is 5 feet 9 inches tall. BMI is 23.6. We have discussed weight loss issues, the patient does not require counseling, as her BMI is reasonable. The patient is not a smoker. Influenza vaccine was not administered.
== END 2018-12-09 23:59 ==
LOC: WC 12:30
PROVIDERS: Visit Provider Surgery
DX: I87.332 Chronic venous hypertension (idiopathic) with ulcer and inflammation of left lower extremity (principal); I89.0 Lymphedema, not elsewhere classified; R60.0 Localized edema; M79.89 Other specified soft tissue disorders; Z86.718 Personal history of other venous thrombosis and embolism; L97.222 Non-pressure chronic ulcer of left calf with fat layer exposed
CPT/HCPCS: 11042; 11045

== ENCOUNTER 2019-01-03 12:30 | Outpatient (RCR) | payer MEDICARE, BC, SELFPAY ==
[2018-12-10 00:49] VITALS: BP 140/112; PULSE 69; RESP 20; TEMP 36.6
[2018-12-20 12:29] VITALS: BP 135/73; PULSE 81; RESP 20; TEMP 36.6
--- NOTE | 2018-12-20 13:27 | PCM.WC.HP ---
(1) Chronic venous hypertension with inflammation involving left side Status: Chronic Current Visit: Yes Code(s): I87.322 - Chronic venous hypertension (idiopathic) with inflammation of left lower extremity (2) Left leg swelling Status: Chronic Current Visit: Yes Code(s): M79.89 - Other specified soft tissue disorders (3) Varicose veins with ulcer and inflammation Status: Chronic Current Visit: Yes Code(s): I83.209 - Varicose veins of unspecified lower extremity with both ulcer of unspecified site and inflammation; L97.909 - Non-pressure chronic ulcer of unspecified part of unspecified lower leg with unspecified severity (4) Leg edema, left Status: Chronic Current Visit: Yes Code(s): R60.0 - Localized edema (5) May-Thurner syndrome Status: Resolved Current Visit: No Code(s): I87.1 - Compression of vein (6) History of DVT (deep vein thrombosis) Status: Chronic Current Visit: No Code(s): Z86.718 - Personal history of other venous thrombosis and embolism Comment: left lower ext (7) dermatomycosis leg Status: Resolved Current Visit: No (8) Cellulitis, leg Status: Resolved Current Visit: No Qualifiers: Code(s): L03.119 - Cellulitis of unspecified part of limb (9) Erythema of skin Status: Resolved Current Visit: No Code(s): L53.9 - Erythematous condition, unspecified (10) Cellulitis of leg Status: Resolved Current Visit: No Qualifiers: Code(s): L03.119 - Cellulitis of unspecified part of limb (11) Cellulitis Status: Resolved Current Visit: No Code(s): L03.90 - Cellulitis, unspecified (12) Chronic venous insufficiency Status: Chronic Current Visit: Yes (13) Lymphedema of left leg Status: Chronic Current Visit: Yes Code(s): I89.0 - Lymphedema, not elsewhere classified (14) 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 Status: Chronic Current Visit: Yes Code(s): I87.039 - Postthrombotic syndrome with ulcer and inflammation of unspecified lower extremity (15) Calf ulcer Status: Chronic Current Visit: Yes Qualifiers: Laterality: left Non-pressure ulcer stage: with fat layer exposed Qualified Code(s): L97.222 - Non-pressure chronic ulcer of left calf with fat layer exposed Code(s): L97.209 - Non-pressure chronic ulcer of unspecified calf with unspecified severity (16) chronic left lower ext wound Status: Chronic Current Visit: Yes History of Present Illness Chief Complaint: Chronic venous insufficiency, chronic venous hypertension with inflammation and ulceration, varicose veins with inflammation and ulceration, post phlebitic syndrome with inflammation and ulceration,leg swelling, leg edema, lymphedema, venous stasis ulceration-left lower extremity History of Wound: This is a 78-year-old white female with a long-standing history of chronic venous disease and swelling in her left lower extremity. This has been present for many years. She has a large ulceration located between her left knee and ankle, which is quite large and irregular in shape, and also highly exudative. 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 She has also previously undergone successful endovenous laser ablation of the left great and small saphenous veins. Healing of the patient's left lower extremity ulceration has been slow, but progressive. A number of healing measures have been implemented in the past, without success. We are currently using Silvadene topically and Xtrasorb for absorption of exudate. 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 (Chronic) chronic left lower ext wound (Chronic) Surgical History: appendectomy, hysterectomy Allergies/Adverse Reactions: Allergies Latex, Natural Rubber Allergy (Verified 07/12/13 11:34) Rash Sulfa (Sulfonamide Antibiotics) Allergy (Verified 07/12/13 11:34) Hives trimethoprim Allergy (Verified 07/12/13 11:34) Hives Home Medications: Ambulatory Orders Medication Instructions Recorded Aspirin [Aspirin, Baby] 81 mg PO DAILY@0800 07/12/13 Calcium Carb/Vitamin D [Os-Mo 1 tablet PO DAILY@0800 07/12/13 500MG + D] Clopidogrel Bisulfate [Plavix] 75 mg PO DAILY 07/12/13 Doxepin HCl [Sinequan] 100 mg PO BID 07/12/13 Doxycycline Monohydrate [Monodox] 100 mg PO BID 07/12/13 [place]-3 Fatty Acids/Fish Oil [Fish 1 each PO DAILY 07/12/13 Oil 1,000 mg Softgel] Vitamin B12 500 mg PO DAILY 07/12/13 Vitamin C 500 mg PO DAILY 07/12/13 proMETHazine soln (6.25mg/5mL) 5 ml PO Q4H PRN PRN 07/12/13 [Phenergan Plain] Prednisone [PredniSONE] 200 mg PO DAILY 07/03/14 Valacyclovir HCl [Valacyclovir] 500 mg PO DAILY 07/03/14 Smoking Status: Never smoker Tobacco Use: Non-smoker Review of Systems Constitutional: Denies: Chills, Fever, Weight Change Eyes: Denies: Pain, Vision Change HEENT: Denies: Difficulty Hearing, Difficulty Swallowing, Sinus Congestion Cardiovascular: Denies: Chest Pain, Palpitations Respiratory: Denies: Cough, Shortness of Breath Gastrointestinal: Denies: Diarrhea, Nausea, Vomiting Genitourinary: Denies: Dysuria, Hematuria Endocrine: Denies: Heat/ Cold Intolerance, Polydipsia, Polyuria Hematologic/ Lymphatic: Denies: Easy Bruising, Easy Bleeding - Physical Exam Vital Signs Temp Pulse Resp BP 97.8 F 81 20 H 135/73 H 12/20/18 12:29 12/20/18 12:29 12/20/18 12:29 12/20/18 12:29 General: Alert, Oriented x3, Cooperative, No apparent distress, Well developed, Well nourished HEENT: Atraumatic, PERRLA, EOMI, Normocephalic Oral: Moist Mucosa Neck: No JVD Lungs: Normal air movement Abdomen: Non-Distended Extremities: No clubbing, No cyanosis, No Calf Tenderness, Edema, - - Swelling and edema persist in the patient's left lower extremity, most notable on the dorsum of the left foot. The ulceration of the left calf persists. It is highly irregular in shape. There are multiple areas of epithelialization. The base of the ulcer is generally pink, though with areas of nonviable tissue and bioburden. There is no sign of infection or cellulitis. Dimensions are documented elsewhere. In general, the ulceration appears to be diminishing in size. Skin: No rashes Wound Measurements and Assessment WC - Nurse 1 - General Ulcer Measurement Start: 12/20/18 12:29 Freq: Status: Active Protocol: Activity Type Activity Date Activity User E-Sign Co-Sign Detail Recorded Client Recorded Date Recorded By Document 12/20/18 12:29 DL [id number] 12/20/18 12:46 DL 12/20/18 12:29 Wound Center Nurse 1 [Ulcer Assessment] #5 LLE- Circumfrential -Current Size (cm) - Length 12.2 -Current Size (cm) - Width 23.2 -Current Size (cm) - Depth 0.2 -Total Square Cm 283.04 -Photo Taken No -Exudate Amt Medium -Exudate Type Serosanguineous -Wound Margin Distinct, Outline Attached -Granulation Amt Medium (34-66%) -Granulation Quality Red -Necrosis Amt Medium (34-66%) -Necrotic Tissue Type Adherent Slough -Structure Exposed N/A -Texture (Nahomy-wound Skin Appearance) Localized Edema Scarring -Moisture (Nahomy-wound Skin Appearance No Abnormality ) -Color (Nahomy-wound Skin Appearance) Hemosiderin Staining Rubor -Temperature (Nahomy-wound Skin No Abnormality Appearance) (Pt Warm) -Tenderness on Palpation (Nahomy-wound No Skin Appearance) -Ulcer Cleansing Wound Cleanser -Foul Odor after Cleansing No -Anesthetic Used 4% Lidocaine Solution [Edema Assessment] -Left Calf (cm) 35.5 -Left Ankle (cm) 23.5 WC - Nurse 2 - General Ulcer CM Notes Start: 12/20/18 12:29 Freq: Status: Active Protocol: Activity Type Activity Date Activity User E-Sign Co-Sign Detail Recorded Client Recorded Date Recorded By Document 12/20/18 13:20 DV [id number] 12/20/18 13:25 DV 12/20/18 13:20 Wound Center Nurse 2 [Procedure/Treatment] #5 LLE- Circumfrential -Time 13:20 -Correct Patient Yes -Correct Side, Site, Position Yes -Correct Procedure Yes -Procedure Performed Yes -Type of Procedure Debridement -Clinical Debridement Subcutaneous -Post Debridement Size (cm) - Length 13.0 -Post Debridement Size (cm) - Width 24.1 -Post Debridement Size (cm) - Depth 0.2 -Total Square Cm 313.30 -Wound/Ulcer Outcome Not Healed -Ulcer Cleansing Rinsed/ Irrigated with Saline -Foul Odor after Cleansing No -Bioengineered Tissue No -Bleeding Controlled with Pressure -Offloading No -Treatment Response Procedure Tolerated Well [See Physician Procedure note for Specifics] Pain Scale: 0-10 Numeric [Pain] -Is Patient Pain Free? Yes Neurological: Cranial nerves II-XII grossly intact, Neuro grossly intact Psych/Mental Status: Normal Affect, Appropriate, Alert and oriented to time, place, person, mood and affect Debridement Note Post-Debridement Measurements/Treatment WC - Nurse 2 - General Ulcer CM Notes Start: 12/20/18 12:29 Freq: Status: Active Protocol: Activity Type Activity Date Activity User E-Sign Co-Sign Detail Recorded Client Recorded Date Recorded By Document 12/20/18 13:20 DV [id number] 12/20/18 13:25 DV 12/20/18 13:20 Wound Center Nurse 2 #5 LLE- Circumfrential -Time 13:20 -Correct Patient Yes -Correct Side, Site, Position Yes -Correct Procedure Yes -Procedure Performed Yes -Type of Procedure Debridement -Clinical Debridement Subcutaneous -Post Debridement Size (cm) - Length 13.0 -Post Debridement Size (cm) - Width 24.1 -Post Debridement Size (cm) - Depth 0.2 -Total Square Cm 313.30 -Wound/Ulcer Outcome Not Healed -Ulcer Cleansing Rinsed/ Irrigated with Saline -Foul Odor after Cleansing No -Bioengineered Tissue No -Bleeding Controlled with Pressure -Offloading No -Treatment Response Procedure Tolerated Well Pain Scale: 0-10 Numeric Is Patient Pain Free? Yes Laterality: Left - Calf Type of Debridement: Excisional debridement Anesthesia Used: 5% Lidocaine Gel Depth: Down to and including healthy tissue, in the subcutaneous layer Percentage of wound debrided: 100 Instrument Used: 5mm curette Tissue Removed: Nonviable and senescent tissue Severity: Fat Layer Exposed Amount of bleeding with debridement: Mild Bleeding Controlled with: Compression and gauze Patient tolerated procedure well Assessment/Plan Active Problems Chronic venous hypertension with inflammation involving left side (Chronic) Left leg swelling (Chronic) Varicose veins with ulcer and inflammation (Chronic) Leg edema, left (Chronic) Chronic venous insufficiency (Chronic) Lymphedema of left leg (Chronic) 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 She has a large irregular ulceration on the left lower extremity which is related to her venous disease. The patient has demonstrated slow but progressive improvement. We are to continue leg elevation, avoidance of idle standing and sitting, compression by means of SurePress, active lifestyle, weight control measures,etc. She is to continue to take a well-balanced, nutritious diet. We are to continue with the use of Silvadene topically. This will be applied topically on a daily basis. Plan: As above. The patient will return in 2 weeks for reevaluation. We are to continue Silvadene topically. Compression will be continued by means of SurePress which will be applied daily. Current measures include leg elevation, avoidance of idle standing and sitting, activity as tolerated, weight control, and compression by means of SurePress, applied by the patient on a daily basis. She is to continue with the use of XtraSorb for moisture control. The ulceration continues to be exudative, and the patient has been encouraged to enhance the amount of time spent elevating her lower extremity, to help minimize the drainage. Patient is to continue the use of Vasculera orally on a daily basis. Nutritional optimization has been recommended. Her prescription for Dilaudid has been renewed, as the patient uses this only as a prelude to her clinic visits, prior to anticipated debridements. Patient weight is 160 pounds. Patient is 5 feet 9 inches tall. BMI is 23.6. BMI is reasonable. The patient is not a smoker. Influenza vaccine was not administered.
[2019-01-03 12:41] VITALS: BP 147/69; PULSE 70; RESP 18; TEMP 36.4
--- NOTE | 2019-01-03 13:18 | PCM.WC.HP ---
(1) Chronic venous hypertension with inflammation involving left side Status: Chronic Current Visit: Yes Code(s): I87.322 - Chronic venous hypertension (idiopathic) with inflammation of left lower extremity (2) Left leg swelling Status: Chronic Current Visit: Yes Code(s): M79.89 - Other specified soft tissue disorders (3) Varicose veins with ulcer and inflammation Status: Chronic Current Visit: Yes Code(s): I83.209 - Varicose veins of unspecified lower extremity with both ulcer of unspecified site and inflammation; L97.909 - Non-pressure chronic ulcer of unspecified part of unspecified lower leg with unspecified severity (4) Leg edema, left Status: Chronic Current Visit: Yes Code(s): R60.0 - Localized edema (5) History of DVT (deep vein thrombosis) Status: Chronic Current Visit: No Code(s): Z86.718 - Personal history of other venous thrombosis and embolism Comment: left lower ext (6) Chronic venous insufficiency Status: Chronic Current Visit: Yes (7) Lymphedema of left leg Status: Chronic Current Visit: Yes Code(s): I89.0 - Lymphedema, not elsewhere classified (8) 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 Status: Chronic Current Visit: Yes Code(s): I87.039 - Postthrombotic syndrome with ulcer and inflammation of unspecified lower extremity (9) Calf ulcer Status: Chronic Current Visit: Yes Qualifiers: Laterality: left Non-pressure ulcer stage: with fat layer exposed Qualified Code(s): L97.222 - Non-pressure chronic ulcer of left calf with fat layer exposed Code(s): L97.209 - Non-pressure chronic ulcer of unspecified calf with unspecified severity (10) chronic left lower ext wound Status: Chronic Current Visit: Yes History of Present Illness Chief Complaint: Chronic venous insufficiency, chronic venous hypertension with inflammation and ulceration, varicose veins with inflammation and ulceration, post phlebitic syndrome with inflammation and ulceration,leg swelling, leg edema, lymphedema, venous stasis ulceration-left lower extremity History of Wound: This is a 78-year-old white female with a long-standing history of chronic venous disease and swelling in her left lower extremity. This has been present for many years. She has a large ulceration located between her left knee and ankle, which is quite large and irregular in shape, and also highly exudative. 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 She has also previously undergone successful endovenous laser ablation of the left great and small saphenous veins. Healing of the patient's left lower extremity ulceration has been slow, but progressive. A number of healing measures have been implemented in the past, without success. We are currently using Silvadene topically and Xtrasorb for absorption of exudate. 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 (Chronic) chronic left lower ext wound (Chronic) Surgical History: appendectomy, hysterectomy Allergies/Adverse Reactions: Allergies Latex, Natural Rubber Allergy (Verified 07/12/13 11:34) Rash Sulfa (Sulfonamide Antibiotics) Allergy (Verified 07/12/13 11:34) Hives trimethoprim Allergy (Verified 07/12/13 11:34) Hives Home Medications: Ambulatory Orders Medication Instructions Recorded Aspirin [Aspirin, Baby] 81 mg PO DAILY@0800 07/12/13 Calcium Carb/Vitamin D [Os-Mo 1 tablet PO DAILY@0800 07/12/13 500MG + D] Clopidogrel Bisulfate [Plavix] 75 mg PO DAILY 07/12/13 Doxepin HCl [Sinequan] 100 mg PO BID 07/12/13 Doxycycline Monohydrate [Monodox] 100 mg PO BID 07/12/13 Marshall-3 Fatty Acids/Fish Oil [Fish 1 each PO DAILY 07/12/13 Oil 1,000 mg Softgel] Vitamin B12 500 mg PO DAILY 07/12/13 Vitamin C 500 mg PO DAILY 07/12/13 proMETHazine soln (6.25mg/5mL) 5 ml PO Q4H PRN PRN 07/12/13 [Phenergan Plain] Prednisone [PredniSONE] 200 mg PO DAILY 07/03/14 Valacyclovir HCl [Valacyclovir] 500 mg PO DAILY 07/03/14 Smoking Status: Never smoker Tobacco Use: Non-smoker Review of Systems Constitutional: Denies: Chills, Fever, Weight Change Eyes: Denies: Pain, Vision Change HEENT: Denies: Difficulty Hearing, Difficulty Swallowing, Sinus Congestion Cardiovascular: Denies: Chest Pain, Palpitations Respiratory: Denies: Cough, Shortness of Breath Gastrointestinal: Denies: Diarrhea, Nausea, Vomiting Genitourinary: Denies: Dysuria, Hematuria Endocrine: Denies: Heat/ Cold Intolerance, Polydipsia, Polyuria Hematologic/ Lymphatic: Denies: Easy Bruising, Easy Bleeding - Physical Exam Vital Signs Temp Pulse Resp BP 97.6 F L 70 18 147/69 H 01/03/19 12:41 01/03/19 12:41 01/03/19 12:41 01/03/19 12:41 General: Alert, Oriented x3, Cooperative, No apparent distress, Well developed, Well nourished HEENT: Atraumatic, PERRLA, EOMI, Normocephalic Oral: Moist Mucosa Neck: No JVD Lungs: Normal air movement Abdomen: Non-Distended Extremities: No clubbing, No cyanosis, No Calf Tenderness, Edema - Left lower extremity, - - Swelling and edema persist in the left lower extremity. This is most notable on the dorsum of the left foot. This has been chronic in nature. The ulceration of the left calf persists. It is highly irregular. There are increasing areas of epithelialization. The base of the ulceration is generally pink, with a moderate amount of nonviable tissue and bioburden. There is no sign of infection or cellulitis. Dimensions are documented elsewhere. Wound Measurements and Assessment WC - Nurse 1 - General Ulcer Measurement Start: 12/20/18 12:29 Freq: Status: Active Protocol: Activity Type Activity Date Activity User E-Sign Co-Sign Detail Recorded Client Recorded Date Recorded By Document 01/03/19 12:41 DL [id number] 01/03/19 12:52 DL 01/03/19 12:41 Wound Center Nurse 1 [Ulcer Assessment] #5 LLE- Circumfrential -Current Size (cm) - Length 13 -Current Size (cm) - Width 21 -Current Size (cm) - Depth 0.2 -Total Square Cm 273 -Photo Taken No -Exudate Amt Large -Exudate Type Yellow/Green -Wound Margin Indistinct, Non -Visible -Granulation Amt Medium (34-66%) -Granulation Quality Red -Necrosis Amt Medium (34-66%) -Necrotic Tissue Type Adherent Slough -Texture (Nahomy-wound Skin Appearance) Localized Edema Scarring -Moisture (Nahomy-wound Skin Appearance No Abnormality ) -Color (Nahomy-wound Skin Appearance) Hemosiderin Staining Rubor -Temperature (Nahomy-wound Skin No Abnormality Appearance) (Pt Warm) -Tenderness on Palpation (Nahomy-wound No Skin Appearance) -Ulcer Cleansing Wound Cleanser -Foul Odor after Cleansing No -Anesthetic Used 4% Lidocaine Solution [Edema Assessment] -Left Calf (cm) 37.5 -Left Ankle (cm) 23.4 WC - Nurse 2 - General Ulcer CM Notes Start: 12/20/18 12:29 Freq: Status: Active Protocol: Activity Type Activity Date Activity User E-Sign Co-Sign Detail Recorded Client Recorded Date Recorded By Document 01/03/19 13:06 DV [id number] 01/03/19 13:10 DV 01/03/19 13:06 Wound Center Nurse 2 [Procedure/Treatment] #5 LLE- Circumfrential -Time 13:07 -Correct Patient Yes -Correct Side, Site, Position Yes -Correct Procedure Yes -Procedure Performed Yes -Type of Procedure Debridement -Clinical Debridement Subcutaneous -Post Debridement Size (cm) - Length 13.0 -Post Debridement Size (cm) - Width 22.5 -Post Debridement Size (cm) - Depth 0.2 -Total Square Cm 292.50 -Wound/Ulcer Outcome Converted -Foul Odor after Cleansing No -Bioengineered Tissue No -Bleeding Controlled with Pressure -Offloading No -Treatment Response Procedure Tolerated Well [See Physician Procedure note for Specifics] Pain Scale: 0-10 Numeric [Pain] -Is Patient Pain Free? Yes Neurological: Cranial nerves II-XII grossly intact, Neuro grossly intact Psych/Mental Status: Normal Affect, Appropriate, Alert and oriented to time, place, person, mood and affect Debridement Note Post-Debridement Measurements/Treatment WC - Nurse 2 - General Ulcer CM Notes Start: 12/20/18 12:29 Freq: Status: Active Protocol: Activity Type Activity Date Activity User E-Sign Co-Sign Detail Recorded Client Recorded Date Recorded By Document 12/20/18 13:20 DV [id number] 12/20/18 13:25 DV Document 01/03/19 13:06 DV [id number] 01/03/19 13:10 DV 12/20/18 01/03/19 13:20 13:06 Wound Center Nurse 2 #5 LLE- Circumfrential -Time 13:20 13:07 -Correct Patient Yes Yes -Correct Side, Site, Position Yes Yes -Correct Procedure Yes Yes -Procedure Performed Yes Yes -Type of Procedure Debridement Debridement -Clinical Debridement Subcutaneous Subcutaneous -Post Debridement Size (cm) - Length 13.0 13.0 -Post Debridement Size (cm) - Width 24.1 22.5 -Post Debridement Size (cm) - Depth 0.2 0.2 -Total Square Cm 313.30 292.50 -Wound/Ulcer Outcome Not Healed Converted -Ulcer Cleansing Rinsed/ Irrigated with Saline -Foul Odor after Cleansing No No -Bioengineered Tissue No No -Bleeding Controlled with Pressure Pressure -Offloading No No -Treatment Response Procedure Procedure Tolerated Well Tolerated Well Pain Scale: 0-10 Numeric Is Patient Pain Free? Yes Yes Laterality: Left - Calf Type of Debridement: Excisional debridement Anesthesia Used: 5% Lidocaine Gel Depth: Down to and including healthy tissue, in the subcutaneous layer Percentage of wound debrided: 100 Instrument Used: 5mm curette Severity: Fat Layer Exposed Amount of bleeding with debridement: Mild Bleeding Controlled with: Compression and gauze Patient tolerated procedure well Assessment/Plan Active Problems Chronic venous hypertension with inflammation involving left side (Chronic) Left leg swelling (Chronic) Varicose veins with ulcer and inflammation (Chronic) Leg edema, left (Chronic) Chronic venous insufficiency (Chronic) Lymphedema of left leg (Chronic) 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 She has a large irregular ulceration on the left lower extremity which is related to her venous disease. The patient has demonstrated slow but progressive improvement. We are to continue leg elevation, avoidance of idle standing and sitting, compression by means of SurePress, active lifestyle, weight control measures,etc. She is to continue to take a well-balanced, nutritious diet. We are to continue with the use of Silvadene topically. This will be applied topically on a daily basis. Plan: As above. The patient will return in 2 weeks for reevaluation. We are to continue Silvadene topically. Compression will be continued by means of SurePress which will be applied daily. Current measures include leg elevation, avoidance of idle standing and sitting, activity as tolerated, weight control, and compression by means of SurePress, applied by the patient on a daily basis. She is to continue with the use of XtraSorb for moisture control. The ulceration continues to be exudative, and the patient has been encouraged to enhance the amount of time spent elevating her lower extremity, to help minimize the drainage. Patient is to continue the use of Vasculera orally on a daily basis. Nutritional optimization has been recommended. Patient weight is 160 pounds. Patient is 5 feet 9 inches tall. BMI is 23.6. BMI is reasonable. The patient is not a smoker. Influenza vaccine was not administered.
== END 2019-01-09 23:59 ==
LOC: WC 12:30
PROVIDERS: Visit Provider Surgery
DX: I83.222 Varicose veins of left lower extremity with both ulcer of calf and inflammation (principal); L97.222 Non-pressure chronic ulcer of left calf with fat layer exposed; Z86.718 Personal history of other venous thrombosis and embolism; I89.0 Lymphedema, not elsewhere classified
CPT/HCPCS: 11042; 11045

== ENCOUNTER 2019-01-31 12:30 | Outpatient (RCR) | payer MEDICARE, BC, SELFPAY ==
[2019-01-10 00:45] VITALS: BP 147/69; PULSE 70; RESP 18; TEMP 36.4
[2019-01-17 12:35] VITALS: BP 123/70; PULSE 72; RESP 16; TEMP 36.9
--- NOTE | 2019-01-17 13:15 | PCM.WC.HP ---
(1) Chronic venous hypertension with inflammation involving left side Status: Chronic Current Visit: Yes Code(s): I87.322 - Chronic venous hypertension (idiopathic) with inflammation of left lower extremity (2) Left leg swelling Status: Chronic Current Visit: Yes Code(s): M79.89 - Other specified soft tissue disorders (3) Varicose veins with ulcer and inflammation Status: Chronic Current Visit: Yes Code(s): I83.209 - Varicose veins of unspecified lower extremity with both ulcer of unspecified site and inflammation; L97.909 - Non-pressure chronic ulcer of unspecified part of unspecified lower leg with unspecified severity (4) Leg edema, left Status: Chronic Current Visit: Yes Code(s): R60.0 - Localized edema (5) May-Thurner syndrome Status: Resolved Current Visit: No Code(s): I87.1 - Compression of vein (6) History of DVT (deep vein thrombosis) Status: Chronic Current Visit: No Code(s): Z86.718 - Personal history of other venous thrombosis and embolism Comment: left lower ext (7) dermatomycosis leg Status: Resolved Current Visit: No (8) Cellulitis, leg Status: Resolved Current Visit: No Qualifiers: Code(s): L03.119 - Cellulitis of unspecified part of limb (9) Erythema of skin Status: Resolved Current Visit: No Code(s): L53.9 - Erythematous condition, unspecified (10) Cellulitis of leg Status: Resolved Current Visit: No Qualifiers: Code(s): L03.119 - Cellulitis of unspecified part of limb (11) Cellulitis Status: Resolved Current Visit: No Code(s): L03.90 - Cellulitis, unspecified (12) Chronic venous insufficiency Status: Chronic Current Visit: Yes (13) Lymphedema of left leg Status: Chronic Current Visit: Yes Code(s): I89.0 - Lymphedema, not elsewhere classified (14) 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 Status: Chronic Current Visit: Yes Code(s): I87.039 - Postthrombotic syndrome with ulcer and inflammation of unspecified lower extremity (15) Calf ulcer Status: Chronic Current Visit: Yes Qualifiers: Laterality: left Non-pressure ulcer stage: with fat layer exposed Qualified Code(s): L97.222 - Non-pressure chronic ulcer of left calf with fat layer exposed Code(s): L97.209 - Non-pressure chronic ulcer of unspecified calf with unspecified severity (16) chronic left lower ext wound Status: Chronic Current Visit: Yes History of Present Illness Chief Complaint: Chronic venous insufficiency, chronic venous hypertension with inflammation and ulceration, varicose veins with inflammation and ulceration, post phlebitic syndrome with inflammation and ulceration,leg swelling, leg edema, lymphedema, venous stasis ulceration-left lower extremity History of Wound: This is a 78-year-old white female with a long-standing history of chronic venous disease and swelling in her left lower extremity. This has been present for many years. She has a large ulceration located between her left knee and ankle, which is quite large and irregular in shape, and also highly exudative. 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 She has also previously undergone successful endovenous laser ablation of the left great and small saphenous veins. Healing of the patient's left lower extremity ulceration has been slow, but progressive. A number of healing measures have been implemented in the past, without success. We are currently using Silvadene topically and Xtrasorb for absorption of exudate. 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 (Chronic) chronic left lower ext wound (Chronic) Surgical History: appendectomy, hysterectomy Allergies/Adverse Reactions: Allergies Latex, Natural Rubber Allergy (Verified 07/12/13 11:34) Rash Sulfa (Sulfonamide Antibiotics) Allergy (Verified 07/12/13 11:34) Hives trimethoprim Allergy (Verified 07/12/13 11:34) Hives Home Medications: Ambulatory Orders Medication Instructions Recorded Aspirin [Aspirin, Baby] 81 mg PO DAILY@0800 07/12/13 Calcium Carb/Vitamin D [Os-Mo 1 tablet PO DAILY@0800 07/12/13 500MG + D] Clopidogrel Bisulfate [Plavix] 75 mg PO DAILY 07/12/13 Doxepin HCl [Sinequan] 100 mg PO BID 07/12/13 Doxycycline Monohydrate [Monodox] 100 mg PO BID 07/12/13 [place]-3 Fatty Acids/Fish Oil [Fish 1 each PO DAILY 07/12/13 Oil 1,000 mg Softgel] Vitamin B12 500 mg PO DAILY 07/12/13 Vitamin C 500 mg PO DAILY 07/12/13 proMETHazine soln (6.25mg/5mL) 5 ml PO Q4H PRN PRN 07/12/13 [Phenergan Plain] Prednisone [PredniSONE] 200 mg PO DAILY 07/03/14 Valacyclovir HCl [Valacyclovir] 500 mg PO DAILY 07/03/14 Smoking Status: Never smoker Tobacco Use: Non-smoker Review of Systems Constitutional: Denies: Chills, Fever, Weight Change Eyes: Denies: Pain, Vision Change HEENT: Denies: Difficulty Hearing, Difficulty Swallowing, Sinus Congestion Cardiovascular: Denies: Chest Pain, Palpitations Respiratory: Denies: Cough, Shortness of Breath Gastrointestinal: Denies: Diarrhea, Nausea, Vomiting Genitourinary: Denies: Dysuria, Hematuria Endocrine: Denies: Heat/ Cold Intolerance, Polydipsia, Polyuria Hematologic/ Lymphatic: Denies: Easy Bruising, Easy Bleeding - Physical Exam Vital Signs Temp Pulse Resp BP 98.4 F 72 16 123/70 H 01/17/19 12:35 01/17/19 12:35 01/17/19 12:35 01/17/19 12:35 General: Alert, Oriented x3, Cooperative, No apparent distress, Well developed, Well nourished HEENT: Atraumatic, PERRLA, EOMI, Normocephalic Oral: Moist Mucosa Neck: No JVD Lungs: Normal air movement Abdomen: Non-Distended Extremities: No clubbing, No cyanosis, No Calf Tenderness, Edema, - - Swelling, edema, and lymphedema persist in the left lower extremity, most notable on the dorsum of the left foot, which has been chronic in nature. Ulceration of the left calf persists as well. There are increasing areas of epithelialization. The ulceration is highly irregular in shape. There is a moderate amount of bioburden and nonviable tissue. There is no evidence of infection or cellulitis. Dimensions are documented elsewhere. Wound Measurements and Assessment WC - Nurse 1 - General Ulcer Measurement Start: 01/17/19 12:35 Freq: Status: Active Protocol: Activity Type Activity Date Activity User E-Sign Co-Sign Detail Recorded Client Recorded Date Recorded By Document 01/17/19 12:35 JF [id number] 01/17/19 12:44 JF 01/17/19 12:35 Wound Center Nurse 1 [Ulcer Assessment] #5 LLE- Circumfrential -Combined with other wound No -Current Size (cm) - Length 9.6 -Current Size (cm) - Width 26.2 -Current Size (cm) - Depth 0.1 -Total Square Cm 251.52 -Photo Taken No -Epithelialization Small 1-33% -Tunneling No -Undermining/Tunneling No -Circular Undermining No -Exudate Amt Small -Exudate Type Serosanguineous -Wound Margin Flat & Intact -Granulation Amt Medium (34-66%) -Granulation Quality Road Runner -Slough/Fibrin Yes -Necrosis Amt Medium (34-66%) -Necrotic Tissue Type Adherent Slough -Structure Exposed N/A -Texture (Nahomy-wound Skin Appearance) Assessed Localized Edema -Moisture (Nahomy-wound Skin Appearance Assessed ) Dry/Scaly -Color (Nahomy-wound Skin Appearance) Assessed -Temperature (Nahomy-wound Skin No Abnormality Appearance) (Pt Warm) -Tenderness on Palpation (Nahomy-wound No Skin Appearance) -Ulcer Cleansing Wound Cleanser -Foul Odor after Cleansing No -Anesthetic Used 4% Lidocaine Solution [Edema Assessment] -Lower Limb Edema Present Yes -Left Calf (cm) 39.7 -Left Ankle (cm) 26.4 WC - Nurse 2 - General Ulcer CM Notes Start: 01/17/19 12:35 Freq: Status: Active Protocol: Activity Type Activity Date Activity User E-Sign Co-Sign Detail Recorded Client Recorded Date Recorded By Document 01/17/19 13:03 MW [id number] 01/17/19 13:11 MW 01/17/19 13:03 Wound Center Nurse 2 [Procedure/Treatment] #5 LLE- Circumfrential -Time 13:03 -Correct Patient Yes -Correct Side, Site, Position Yes -Correct Procedure Yes -Procedure Performed Yes -Type of Procedure Debridement -Clinical Debridement Subcutaneous -Post Debridement Size (cm) - Length 10.0 -Post Debridement Size (cm) - Width 22.0 -Post Debridement Size (cm) - Depth 0.2 -Total Square Cm 220.00 -Wound/Ulcer Outcome Not Healed -Ulcer Cleansing Rinsed/ Irrigated with Saline -Foul Odor after Cleansing No -Bioengineered Tissue No -Bleeding Controlled with Pressure -Offloading No -Treatment Response Procedure Tolerated Well [See Physician Procedure note for Specifics] Pain Scale: 0-10 Numeric [Pain] -Is Patient Pain Free? Yes Neurological: Cranial nerves II-XII grossly intact, Neuro grossly intact Psych/Mental Status: Normal Affect, Appropriate, Alert and oriented to time, place, person, mood and affect Debridement Note Post-Debridement Measurements/Treatment WC - Nurse 2 - General Ulcer CM Notes Start: 01/17/19 12:35 Freq: Status: Active Protocol: Activity Type Activity Date Activity User E-Sign Co-Sign Detail Recorded Client Recorded Date Recorded By Document 01/17/19 13:03 MW [id number] 01/17/19 13:11 MW 01/17/19 13:03 Wound Center Nurse 2 #5 LLE- Circumfrential -Time 13:03 -Correct Patient Yes -Correct Side, Site, Position Yes -Correct Procedure Yes -Procedure Performed Yes -Type of Procedure Debridement -Clinical Debridement Subcutaneous -Post Debridement Size (cm) - Length 10.0 -Post Debridement Size (cm) - Width 22.0 -Post Debridement Size (cm) - Depth 0.2 -Total Square Cm 220.00 -Wound/Ulcer Outcome Not Healed -Ulcer Cleansing Rinsed/ Irrigated with Saline -Foul Odor after Cleansing No -Bioengineered Tissue No -Bleeding Controlled with Pressure -Offloading No -Treatment Response Procedure Tolerated Well Pain Scale: 0-10 Numeric Is Patient Pain Free? Yes Laterality: Left - Calf Type of Debridement: Excisional debridement Anesthesia Used: 5% Lidocaine Gel Depth: Down to and including healthy tissue, in the subcutaneous layer Percentage of wound debrided: 100 Instrument Used: 5mm curette Severity: Fat Layer Exposed Amount of bleeding with debridement: Mild Bleeding Controlled with: Compression and gauze Patient tolerated procedure well Assessment/Plan Active Problems Chronic venous hypertension with inflammation involving left side (Chronic) Left leg swelling (Chronic) Varicose veins with ulcer and inflammation (Chronic) Leg edema, left (Chronic) Chronic venous insufficiency (Chronic) Lymphedema of left leg (Chronic) 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 She has a large irregular ulceration on the left lower extremity which is related to her venous disease. The patient has demonstrated slow but progressive improvement. We are to continue leg elevation, avoidance of idle standing and sitting, compression by means of SurePress, active lifestyle, weight control measures,etc. She is to continue to take a well-balanced, nutritious diet. We are to continue with the use of Silvadene topically. This will be applied topically on a daily basis. Plan: As above. The patient will return in 2 weeks for reevaluation. We are to continue Silvadene topically. Compression will be continued by means of SurePress which will be applied daily. Current measures include leg elevation, avoidance of idle standing and sitting, activity as tolerated, weight control, and compression by means of SurePress, applied by the patient on a daily basis. She is to continue with the use of XtraSorb for moisture control. The ulceration continues to be exudative, and the patient has been encouraged to enhance the amount of time spent elevating her lower extremity, to help minimize the drainage. Patient is to continue the use of Vasculera orally on a daily basis. Nutritional optimization has been recommended. Patient weight is 160 pounds. Patient is 5 feet 9 inches tall. BMI is 23.6. BMI is reasonable. The patient is not a smoker. Influenza vaccine was not administered.
[2019-01-31 12:42] VITALS: BP 153/82; PULSE 75; RESP 16; TEMP 36.2
--- NOTE | 2019-01-31 13:09 | PCM.WC.HP ---
(1) Chronic venous hypertension with inflammation involving left side Status: Chronic Current Visit: Yes Code(s): I87.322 - Chronic venous hypertension (idiopathic) with inflammation of left lower extremity (2) Left leg swelling Status: Chronic Current Visit: Yes Code(s): M79.89 - Other specified soft tissue disorders (3) Varicose veins with ulcer and inflammation Status: Chronic Current Visit: Yes Code(s): I83.209 - Varicose veins of unspecified lower extremity with both ulcer of unspecified site and inflammation; L97.909 - Non-pressure chronic ulcer of unspecified part of unspecified lower leg with unspecified severity (4) Leg edema, left Status: Chronic Current Visit: Yes Code(s): R60.0 - Localized edema (5) History of DVT (deep vein thrombosis) Status: Chronic Current Visit: No Code(s): Z86.718 - Personal history of other venous thrombosis and embolism Comment: left lower ext (6) Chronic venous insufficiency Status: Chronic Current Visit: Yes (7) Lymphedema of left leg Status: Chronic Current Visit: Yes Code(s): I89.0 - Lymphedema, not elsewhere classified (8) 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 Status: Chronic Current Visit: Yes Code(s): I87.039 - Postthrombotic syndrome with ulcer and inflammation of unspecified lower extremity (9) Calf ulcer Status: Chronic Current Visit: Yes Qualifiers: Laterality: left Non-pressure ulcer stage: with fat layer exposed Qualified Code(s): L97.222 - Non-pressure chronic ulcer of left calf with fat layer exposed Code(s): L97.209 - Non-pressure chronic ulcer of unspecified calf with unspecified severity (10) chronic left lower ext wound Status: Chronic Current Visit: Yes History of Present Illness Chief Complaint: Chronic venous insufficiency, chronic venous hypertension with inflammation and ulceration, varicose veins with inflammation and ulceration, post phlebitic syndrome with inflammation and ulceration,leg swelling, leg edema, lymphedema, venous stasis ulceration-left lower extremity History of Wound: This is a 78-year-old white female with a long-standing history of chronic venous disease and swelling in her left lower extremity. This has been present for many years. She has a large ulceration located between her left knee and ankle, which is quite large and irregular in shape, and also highly exudative. 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 She has also previously undergone successful endovenous laser ablation of the left great and small saphenous veins. Healing of the patient's left lower extremity ulceration has been slow, but progressive. A number of healing measures have been implemented in the past, without success. We are currently using Silvadene topically and Xtrasorb for absorption of exudate. 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 (Chronic) chronic left lower ext wound (Chronic) Surgical History: appendectomy, hysterectomy Allergies/Adverse Reactions: Allergies Latex, Natural Rubber Allergy (Verified 07/12/13 11:34) Rash Sulfa (Sulfonamide Antibiotics) Allergy (Verified 07/12/13 11:34) Hives trimethoprim Allergy (Verified 07/12/13 11:34) Hives Home Medications: Ambulatory Orders Medication Instructions Recorded Aspirin [Aspirin, Baby] 81 mg PO DAILY@0800 07/12/13 Calcium Carb/Vitamin D [Os-Mo 1 tablet PO DAILY@0800 07/12/13 500MG + D] Clopidogrel Bisulfate [Plavix] 75 mg PO DAILY 07/12/13 Doxepin HCl [Sinequan] 100 mg PO BID 07/12/13 Doxycycline Monohydrate [Monodox] 100 mg PO BID 07/12/13 Christine-3 Fatty Acids/Fish Oil [Fish 1 each PO DAILY 07/12/13 Oil 1,000 mg Softgel] Vitamin B12 500 mg PO DAILY 07/12/13 Vitamin C 500 mg PO DAILY 07/12/13 proMETHazine soln (6.25mg/5mL) 5 ml PO Q4H PRN PRN 07/12/13 [Phenergan Plain] Prednisone [PredniSONE] 200 mg PO DAILY 07/03/14 Valacyclovir HCl [Valacyclovir] 500 mg PO DAILY 07/03/14 Smoking Status: Never smoker Tobacco Use: Non-smoker Review of Systems Constitutional: Denies: Chills, Fever, Weight Change Eyes: Denies: Pain, Vision Change HEENT: Denies: Difficulty Hearing, Difficulty Swallowing, Sinus Congestion Cardiovascular: Denies: Chest Pain, Palpitations Respiratory: Denies: Cough, Shortness of Breath Gastrointestinal: Denies: Diarrhea, Nausea, Vomiting Genitourinary: Denies: Dysuria, Hematuria Endocrine: Denies: Heat/ Cold Intolerance, Polydipsia, Polyuria Hematologic/ Lymphatic: Denies: Easy Bruising, Easy Bleeding - Physical Exam Vital Signs Temp Pulse Resp BP 97.1 F L 75 16 153/82 H 01/31/19 12:42 01/31/19 12:42 01/31/19 12:42 01/31/19 12:42 General: Alert, Oriented x3, Cooperative, No apparent distress, Well developed, Well nourished HEENT: Atraumatic, PERRLA, EOMI, Normocephalic Oral: Moist Mucosa Neck: No JVD Lungs: Normal air movement Abdomen: Non-Distended Extremities: No clubbing, No cyanosis, No Calf Tenderness, - - Swelling and edema persist in the left lower extremity, which is chronic in nature. It is most notable on the dorsum of the left foot. The ulceration of the left calf persists. It appears to be slightly smaller in size. There is evidence of epithelialization in certain areas. The ulceration is highly irregular in shape. Dimensions are documented elsewhere. There is a moderate amount of bioburden. There is no sign of infection or cellulitis. Skin: No rashes Wound Measurements and Assessment WC - Nurse 1 - General Ulcer Measurement Start: 01/17/19 12:35 Freq: Status: Active Protocol: Activity Type Activity Date Activity User E-Sign Co-Sign Detail Recorded Client Recorded Date Recorded By Document 01/31/19 12:42 MW [id number] 01/31/19 12:50 MW 01/31/19 12:42 Wound Center Nurse 1 [Ulcer Assessment] #5 LLE- Circumfrential -Combined with other wound No -Current Size (cm) - Length 12.0 -Current Size (cm) - Width 22.7 -Current Size (cm) - Depth 0.2 -Total Square Cm 272.40 -Date of Last Picture (Recall this 01/31/19 field) -Photo Taken Yes -Epithelialization None Present -Tunneling No -Undermining/Tunneling No -Circular Undermining No -Exudate Amt Small -Exudate Type Serosanguineous -Wound Margin Flat & Intact -Granulation Amt Small (1-33%) -Granulation Quality [place] -Slough/Fibrin Yes -Necrosis Amt Large (67-100%) -Necrotic Tissue Type Adherent Slough -Structure Exposed N/A -Texture (Nahomy-wound Skin Appearance) Assessed Localized Edema Scarring -Moisture (Nahomy-wound Skin Appearance Assessed ) -Color (Nahomy-wound Skin Appearance) Assessed Hemosiderin Staining -Temperature (Nahomy-wound Skin No Abnormality Appearance) (Pt Warm) -Tenderness on Palpation (Nahomy-wound No Skin Appearance) -Ulcer Cleansing soap and water [Edema Assessment] -Lower Limb Edema Present Yes -Left Calf (cm) 37.5 -Left Ankle (cm) 23.4 WC - Nurse 2 - General Ulcer CM Notes Start: 01/17/19 12:35 Freq: Status: Active Protocol: Activity Type Activity Date Activity User E-Sign Co-Sign Detail Recorded Client Recorded Date Recorded By Document 01/31/19 12:59 DV [id number] 01/31/19 13:03 DV 01/31/19 12:59 Wound Center Nurse 2 [Procedure/Treatment] #5 LLE- Circumfrential -Time 13:00 -Correct Patient Yes -Correct Side, Site, Position Yes -Correct Procedure Yes -Procedure Performed Yes -Type of Procedure Debridement -Clinical Debridement Subcutaneous -Post Debridement Size (cm) - Length 13.1 -Post Debridement Size (cm) - Width 23.1 -Post Debridement Size (cm) - Depth 0.2 -Total Square Cm 302.61 -Wound/Ulcer Outcome Not Healed -Ulcer Cleansing Rinsed/ Irrigated with Saline -Foul Odor after Cleansing No -Bioengineered Tissue No -Bleeding Controlled with Pressure -Offloading Yes -Treatment Response Procedure Tolerated Well [See Physician Procedure note for Specifics] Pain Scale: 0-10 Numeric [Pain] -Is Patient Pain Free? Yes Neurological: Cranial nerves II-XII grossly intact, Neuro grossly intact Psych/Mental Status: Normal Affect, Appropriate, Alert and oriented to time, place, person, mood and affect Debridement Note Post-Debridement Measurements/Treatment WC - Nurse 2 - General Ulcer CM Notes Start: 01/17/19 12:35 Freq: Status: Active Protocol: Activity Type Activity Date Activity User E-Sign Co-Sign Detail Recorded Client Recorded Date Recorded By Document 01/17/19 13:03 MW [id number] 01/17/19 13:11 MW Document 01/31/19 12:59 DV [id number] 01/31/19 13:03 DV 01/17/19 01/31/19 13:03 12:59 Wound Center Nurse 2 #5 LLE- Circumfrential -Time 13:03 13:00 -Correct Patient Yes Yes -Correct Side, Site, Position Yes Yes -Correct Procedure Yes Yes -Procedure Performed Yes Yes -Type of Procedure Debridement Debridement -Clinical Debridement Subcutaneous Subcutaneous -Post Debridement Size (cm) - Length 10.0 13.1 -Post Debridement Size (cm) - Width 22.0 23.1 -Post Debridement Size (cm) - Depth 0.2 0.2 -Total Square Cm 220.00 302.61 -Wound/Ulcer Outcome Not Healed Not Healed -Ulcer Cleansing Rinsed/ Rinsed/ Irrigated with Irrigated with Saline Saline -Foul Odor after Cleansing No No -Bioengineered Tissue No No -Bleeding Controlled with Pressure Pressure -Offloading No Yes -Treatment Response Procedure Procedure Tolerated Well Tolerated Well Pain Scale: 0-10 Numeric Is Patient Pain Free? Yes Yes Laterality: Left - Calf Type of Debridement: Excisional debridement Anesthesia Used: 5% Lidocaine Gel Depth: Down to and including healthy tissue, in the subcutaneous layer Percentage of wound debrided: 100 Instrument Used: 5mm curette Tissue Removed: Nonviable material and bioburden Severity: Fat Layer Exposed Amount of bleeding with debridement: Mild Bleeding Controlled with: Compression and gauze Patient tolerated procedure well Assessment/Plan Active Problems Chronic venous hypertension with inflammation involving left side (Chronic) Left leg swelling (Chronic) Varicose veins with ulcer and inflammation (Chronic) Leg edema, left (Chronic) Chronic venous insufficiency (Chronic) Lymphedema of left leg (Chronic) 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 She has a large irregular ulceration on the left lower extremity which is related to her venous disease. The patient has demonstrated slow but progressive improvement. We are to continue leg elevation, avoidance of idle standing and sitting, compression by means of SurePress, active lifestyle, weight control measures,etc. She is to continue to take a well-balanced, nutritious diet. We are to continue with the use of Silvadene topically. This will be applied topically on a daily basis. Plan: As above. The patient will return in 2 weeks for reevaluation. We are to continue Silvadene topically. Compression will be continued by means of SurePress which will be applied daily. Current measures include leg elevation, avoidance of idle standing and sitting, activity as tolerated, weight control, and compression by means of SurePress, applied by the patient on a daily basis. She is to continue with the use of XtraSorb for moisture control. The ulceration continues to be exudative, and the patient has been encouraged to enhance the amount of time spent elevating her lower extremity, to help minimize the drainage. Patient is to continue the use of Vasculera orally on a daily basis. Nutritional optimization has been recommended. Patient weight is 160 pounds. Patient is 5 feet 9 inches tall. BMI is 23.6. BMI is reasonable. The patient is not a smoker. Influenza vaccine was not administered.
== END 2019-02-08 23:59 ==
LOC: WC 12:30
PROVIDERS: Visit Provider Surgery
DX: I83.222 Varicose veins of left lower extremity with both ulcer of calf and inflammation (principal); R60.0 Localized edema; L97.222 Non-pressure chronic ulcer of left calf with fat layer exposed; I89.0 Lymphedema, not elsewhere classified; Z86.718 Personal history of other venous thrombosis and embolism
CPT/HCPCS: 11042; 11045

== ENCOUNTER 2019-03-08 11:15 | Outpatient (RCR) | payer MEDICARE, BC, SELFPAY ==
[2019-02-09 00:55] VITALS: BP 153/82; PULSE 75; RESP 16; TEMP 36.2
[2019-02-22 10:59] VITALS: BP 151/89; PULSE 75; RESP 16; TEMP 37.2
--- NOTE | 2019-02-22 11:35 | PCM.WC.HP ---
(1) Chronic venous hypertension with inflammation involving left side Status: Chronic Current Visit: Yes Code(s): I87.322 - Chronic venous hypertension (idiopathic) with inflammation of left lower extremity (2) Left leg swelling Status: Chronic Current Visit: Yes Code(s): M79.89 - Other specified soft tissue disorders (3) Varicose veins with ulcer and inflammation Status: Chronic Current Visit: Yes Code(s): I83.209 - Varicose veins of unspecified lower extremity with both ulcer of unspecified site and inflammation; L97.909 - Non-pressure chronic ulcer of unspecified part of unspecified lower leg with unspecified severity (4) Leg edema, left Status: Chronic Current Visit: Yes Code(s): R60.0 - Localized edema (5) May-Thurner syndrome Status: Resolved Current Visit: No Code(s): I87.1 - Compression of vein (6) History of DVT (deep vein thrombosis) Status: Chronic Current Visit: No Code(s): Z86.718 - Personal history of other venous thrombosis and embolism Comment: left lower ext (7) dermatomycosis leg Status: Resolved Current Visit: No (8) Cellulitis, leg Status: Resolved Current Visit: No Qualifiers: Code(s): L03.119 - Cellulitis of unspecified part of limb (9) Erythema of skin Status: Resolved Current Visit: No Code(s): L53.9 - Erythematous condition, unspecified (10) Cellulitis of leg Status: Resolved Current Visit: No Qualifiers: Code(s): L03.119 - Cellulitis of unspecified part of limb (11) Cellulitis Status: Resolved Current Visit: No Code(s): L03.90 - Cellulitis, unspecified (12) Chronic venous insufficiency Status: Chronic Current Visit: Yes (13) Lymphedema of left leg Status: Chronic Current Visit: Yes Code(s): I89.0 - Lymphedema, not elsewhere classified (14) 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 Status: Chronic Current Visit: Yes Code(s): I87.039 - Postthrombotic syndrome with ulcer and inflammation of unspecified lower extremity (15) Calf ulcer Status: Chronic Current Visit: Yes Qualifiers: Laterality: left Non-pressure ulcer stage: with fat layer exposed Qualified Code(s): L97.222 - Non-pressure chronic ulcer of left calf with fat layer exposed Code(s): L97.209 - Non-pressure chronic ulcer of unspecified calf with unspecified severity (16) chronic left lower ext wound Status: Chronic Current Visit: Yes History of Present Illness Chief Complaint: Chronic venous insufficiency, chronic venous hypertension with inflammation and ulceration, varicose veins with inflammation and ulceration, post phlebitic syndrome with inflammation and ulceration,leg swelling, leg edema, lymphedema, venous stasis ulceration-left lower extremity History of Wound: This is a 78-year-old white female with a long-standing history of chronic venous disease and swelling in her left lower extremity. This has been present for many years. She has a large ulceration located between her left knee and ankle, which is quite large and irregular in shape, and also highly exudative. 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 She has also previously undergone successful endovenous laser ablation of the left great and small saphenous veins. Healing of the patient's left lower extremity ulceration has been slow, but progressive. A number of healing measures have been implemented in the past, without success. We are currently using Silvadene topically and Xtrasorb for absorption of exudate. 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 (Chronic) chronic left lower ext wound (Chronic) Surgical History: appendectomy, hysterectomy Allergies/Adverse Reactions: Allergies Latex, Natural Rubber Allergy (Verified 07/12/13 11:34) Rash Sulfa (Sulfonamide Antibiotics) Allergy (Verified 07/12/13 11:34) Hives trimethoprim Allergy (Verified 07/12/13 11:34) Hives Home Medications: Ambulatory Orders Medication Instructions Recorded Aspirin [Aspirin, Baby] 81 mg PO DAILY@0800 07/12/13 Calcium Carb/Vitamin D [Os-Mo 1 tablet PO DAILY@0800 07/12/13 500MG + D] Clopidogrel Bisulfate [Plavix] 75 mg PO DAILY 07/12/13 Doxepin HCl [Sinequan] 100 mg PO BID 07/12/13 Doxycycline Monohydrate [Monodox] 100 mg PO BID 07/12/13 Mckinney-3 Fatty Acids/Fish Oil [Fish 1 each PO DAILY 07/12/13 Oil 1,000 mg Softgel] Vitamin B12 500 mg PO DAILY 07/12/13 Vitamin C 500 mg PO DAILY 07/12/13 proMETHazine soln (6.25mg/5mL) 5 ml PO Q4H PRN PRN 07/12/13 [Phenergan Plain] Prednisone [PredniSONE] 200 mg PO DAILY 07/03/14 Valacyclovir HCl [Valacyclovir] 500 mg PO DAILY 07/03/14 Smoking Status: Never smoker Tobacco Use: Non-smoker Review of Systems Constitutional: Denies: Chills, Fever, Weight Change Eyes: Denies: Pain, Vision Change HEENT: Denies: Difficulty Hearing, Difficulty Swallowing, Sinus Congestion Cardiovascular: Denies: Chest Pain, Palpitations Respiratory: Denies: Cough, Shortness of Breath Gastrointestinal: Denies: Diarrhea, Nausea, Vomiting Genitourinary: Denies: Dysuria, Hematuria Endocrine: Denies: Heat/ Cold Intolerance, Polydipsia, Polyuria Hematologic/ Lymphatic: Denies: Easy Bruising, Easy Bleeding - Physical Exam Vital Signs Temp Pulse Resp BP 98.9 F 75 16 151/89 H 02/22/19 10:59 02/22/19 10:59 02/22/19 10:59 02/22/19 10:59 General: Alert, Oriented x3, Cooperative, No apparent distress, Well developed, Well nourished HEENT: Atraumatic, PERRLA, EOMI, Normocephalic Oral: Moist Mucosa Neck: No JVD Lungs: Normal air movement Abdomen: Non-Distended Extremities: No clubbing, No cyanosis, No Calf Tenderness, - - Swelling, edema, and lymphedema persist in the left lower extremity. This is most notable on the dorsum of the left foot, and has been chronic in nature. The ulceration of the left calf persists. It is highly irregular in shape. Engines are documented elsewhere. There is a moderate amount of bioburden and nonviable tissue. There is no sign of infection or cellulitis. Wound Measurements and Assessment WC - Nurse 1 - General Ulcer Measurement Start: 02/22/19 10:58 Freq: Status: Active Protocol: Activity Type Activity Date Activity User E-Sign Co-Sign Detail Recorded Client Recorded Date Recorded By Document 02/22/19 10:59 AN [id number] 02/22/19 11:16 AN 02/22/19 10:59 Wound Center Nurse 1 [Ulcer Assessment] #5 LLE- Circumfrential -Current Size (cm) - Length 13 -Current Size (cm) - Width 25 -Current Size (cm) - Depth 0.2 -Total Square Cm 325 -Exudate Amt Large -Exudate Type Yellow/Green -Wound Margin Thickened -Granulation Amt Small (1-33%) -Granulation Quality Red -Slough/Fibrin Yes -Necrosis Amt Large (67-100%) -Necrotic Tissue Type Adherent Slough -Structure Exposed Fat Layer Exposed -Texture (Nahomy-wound Skin Appearance) Assessed Localized Edema -Moisture (Nahomy-wound Skin Appearance Assessed ) Maceration Weeping -Color (Nahomy-wound Skin Appearance) Assessed Erythema -Temperature (Nahomy-wound Skin No Abnormality Appearance) (Pt Warm) -Tenderness on Palpation (Nahomy-wound Yes Skin Appearance) -Ulcer Cleansing soap and water -Foul Odor after Cleansing No -Anesthetic Used 4% Lidocaine Solution 5% Lidocaine Gel [Edema Assessment] -Left Calf (cm) 33 -Left Ankle (cm) 23.4 WC - Nurse 2 - General Ulcer CM Notes Start: 02/22/19 10:58 Freq: Status: Active Protocol: Activity Type Activity Date Activity User E-Sign Co-Sign Detail Recorded Client Recorded Date Recorded By Document 02/22/19 11:31 DV [id number] 02/22/19 11:34 DV 02/22/19 11:31 Wound Center Nurse 2 [Procedure/Treatment] #5 LLE- Circumfrential -Time 11:31 -Correct Patient Yes -Correct Side, Site, Position Yes -Correct Procedure Yes -Procedure Performed Yes -Type of Procedure Debridement -Clinical Debridement Subcutaneous -Post Debridement Size (cm) - Length 14.0 -Post Debridement Size (cm) - Width 25.0 -Post Debridement Size (cm) - Depth 0.3 -Total Square Cm 350.00 -Wound/Ulcer Outcome Not Healed -Ulcer Cleansing Rinsed/ Irrigated with Saline -Foul Odor after Cleansing No -Bioengineered Tissue No -Bleeding Controlled with Pressure -Treatment Response Procedure Tolerated Well [See Physician Procedure note for Specifics] Pain Scale: 0-10 Numeric [Pain] -Is Patient Pain Free? Yes Neurological: Cranial nerves II-XII grossly intact, Neuro grossly intact Psych/Mental Status: Normal Affect, Appropriate, Alert and oriented to time, place, person, mood and affect Debridement Note Post-Debridement Measurements/Treatment WC - Nurse 2 - General Ulcer CM Notes Start: 02/22/19 10:58 Freq: Status: Active Protocol: Activity Type Activity Date Activity User E-Sign Co-Sign Detail Recorded Client Recorded Date Recorded By Document 02/22/19 11:31 DV [id number] 02/22/19 11:34 DV 02/22/19 11:31 Wound Center Nurse 2 #5 LLE- Circumfrential -Time 11:31 -Correct Patient Yes -Correct Side, Site, Position Yes -Correct Procedure Yes -Procedure Performed Yes -Type of Procedure Debridement -Clinical Debridement Subcutaneous -Post Debridement Size (cm) - Length 14.0 -Post Debridement Size (cm) - Width 25.0 -Post Debridement Size (cm) - Depth 0.3 -Total Square Cm 350.00 -Wound/Ulcer Outcome Not Healed -Ulcer Cleansing Rinsed/ Irrigated with Saline -Foul Odor after Cleansing No -Bioengineered Tissue No -Bleeding Controlled with Pressure -Treatment Response Procedure Tolerated Well Pain Scale: 0-10 Numeric Is Patient Pain Free? Yes Laterality: Left - Calf Type of Debridement: Excisional debridement Anesthesia Used: 5% Lidocaine Gel Depth: Down to and including healthy tissue, in the subcutaneous layer Percentage of wound debrided: 100 Instrument Used: 5mm curette Tissue Removed: Bioburden and nonviable tissue. 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 She has a large irregular ulceration on the left lower extremity which is related to her venous disease. The patient has demonstrated slow but progressive improvement. We are to continue leg elevation, avoidance of idle standing and sitting, compression by means of SurePress, active lifestyle, weight control measures,etc. She is to continue to take a well-balanced, nutritious diet. We are to continue with the use of Silvadene topically. This will be applied topically on a daily basis. Plan: As above. The patient will return in 2 weeks for reevaluation. We are to continue Silvadene topically. Compression will be continued by means of SurePress which will be applied daily. Current measures include leg elevation, avoidance of idle standing and sitting, activity as tolerated, weight control, and compression by means of SurePress, applied by the patient on a daily basis. She is to continue with the use of XtraSorb for moisture control. The ulceration continues to be exudative, and the patient has been encouraged to enhance the amount of time spent elevating her lower extremity, to help minimize the drainage. Patient is to continue the use of Vasculera orally on a daily basis. Nutritional optimization has been recommended. The indicates that the patient is largely noncompliant with leg elevation. She spends long hours each day in an idle sitting position. We have discussed reevaluating the possibility of venous outflow obstruction in the left lower extremity, with knowledge that the patient has required previous stenting of the left iliac venous system. However, after discussion with the patient and her , the have declined this diagnostic option. Patient weight is 160 pounds. Patient is 5 feet 9 inches tall. BMI is 23.6. BMI is reasonable. The patient is not a smoker. Influenza vaccine was not administered.
[2019-03-08 11:34] VITALS: BP 149/66; PULSE 69; RESP 18; TEMP 36.1
--- NOTE | 2019-03-08 12:36 | HP.PCM_ITS ---
(1) Chronic venous hypertension with inflammation involving left side Status: Chronic Current Visit: Yes Code(s): I87.322 - Chronic venous hypertension (idiopathic) with inflammation of left lower extremity (2) Left leg swelling Status: Chronic Current Visit: Yes Code(s): M79.89 - Other specified soft tissue disorders (3) Varicose veins with ulcer and inflammation Status: Chronic Current Visit: Yes Code(s): I83.209 - Varicose veins of unspecified lower extremity with both ulcer of unspecified site and inflammation; L97.909 - Non-pressure chronic ulcer of unspecified part of unspecified lower leg with unspecified severity (4) Leg edema, left Status: Chronic Current Visit: Yes Code(s): R60.0 - Localized edema (5) History of DVT (deep vein thrombosis) Status: Chronic Current Visit: No Code(s): Z86.718 - Personal history of other venous thrombosis and embolism Comment: left lower ext (6) Chronic venous insufficiency Status: Chronic Current Visit: Yes (7) Lymphedema of left leg Status: Chronic Current Visit: Yes Code(s): I89.0 - Lymphedema, not elsewhere classified (8) 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 Status: Chronic Current Visit: Yes Code(s): I87.039 - Postthrombotic syndrome with ulcer and inflammation of unspecified lower extremity (9) Calf ulcer Status: Chronic Current Visit: Yes Qualifiers: Laterality: left Non-pressure ulcer stage: with fat layer exposed Qualified Code(s): L97.222 - Non-pressure chronic ulcer of left calf with fat layer exposed Code(s): L97.209 - Non-pressure chronic ulcer of unspecified calf with unspecified severity (10) chronic left lower ext wound Status: Chronic Current Visit: Yes History of Present Illness Date of Service: 03/08/19 Chief Complaint: Chronic venous insufficiency, chronic venous hypertension with inflammation and ulceration, varicose veins with inflammation and ulceration, post phlebitic syndrome with inflammation and ulceration,leg swelling, leg edema, lymphedema, venous stasis ulceration-left lower extremity History of Wound: This is a 79-year-old white female with a long-standing history of chronic venous disease and swelling in her left lower extremity. This has been present for many years. She has a large ulceration located between her left knee and ankle, which is quite large and irregular in shape, and also highly exudative. 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 She has also previously undergone successful endovenous laser ablation of the left great and small saphenous veins. Healing of the patient's left lower extremity ulceration has been slow, but progressive. A number of healing measures have been implemented in the past, without success. We are currently using Silvadene topically and Xtrasorb for absorption of exudate. 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 (Chronic) chronic left lower ext wound (Chronic) Surgical History: appendectomy, hysterectomy Allergies/Adverse Reactions: Allergies Latex, Natural Rubber Allergy (Verified 07/12/13 11:34) Rash Sulfa (Sulfonamide Antibiotics) Allergy (Verified 07/12/13 11:34) Hives trimethoprim Allergy (Verified 07/12/13 11:34) Hives Home Medications: Ambulatory Orders Medication Instructions Recorded Aspirin [Aspirin, Baby] 81 mg PO DAILY@0800 07/12/13 Calcium Carb/Vitamin D [Os-Mo 1 tablet PO DAILY@0800 07/12/13 500MG + D] Clopidogrel Bisulfate [Plavix] 75 mg PO DAILY 07/12/13 Doxepin HCl [Sinequan] 100 mg PO BID 07/12/13 Doxycycline Monohydrate [Monodox] 100 mg PO BID 07/12/13 [place]-3 Fatty Acids/Fish Oil [Fish 1 each PO DAILY 07/12/13 Oil 1,000 mg Softgel] Vitamin B12 500 mg PO DAILY 07/12/13 Vitamin C 500 mg PO DAILY 07/12/13 proMETHazine soln (6.25mg/5mL) 5 ml PO Q4H PRN PRN 07/12/13 [Phenergan Plain] Prednisone [PredniSONE] 200 mg PO DAILY 07/03/14 Valacyclovir HCl [Valacyclovir] 500 mg PO DAILY 07/03/14 Smoking Status: Never smoker Tobacco Use: Non-smoker Review of Systems Constitutional: Denies: Chills, Fever, Weight Change Eyes: Denies: Pain, Vision Change HEENT: Denies: Difficulty Hearing, Difficulty Swallowing, Sinus Congestion Cardiovascular: Denies: Chest Pain, Palpitations Respiratory: Denies: Cough, Shortness of Breath Gastrointestinal: Denies: Diarrhea, Nausea, Vomiting Genitourinary: Denies: Dysuria, Hematuria Endocrine: Denies: Heat/ Cold Intolerance, Polydipsia, Polyuria Hematologic/ Lymphatic: Denies: Easy Bruising, Easy Bleeding - Physical Exam Vital Signs Temp Pulse Resp BP 97 F L 69 18 149/66 H 03/08/19 11:34 03/08/19 11:34 03/08/19 11:34 03/08/19 11:34 General: Alert, Oriented x3, Cooperative, No apparent distress, Well developed, Well nourished HEENT: Atraumatic, PERRLA, EOMI, Normocephalic Oral: Moist Mucosa Neck: No JVD Lungs: Normal air movement Abdomen: Non-Distended Extremities: No clubbing, No cyanosis, No Calf Tenderness, - - Severe swelling and edema persist in the left lower extremity. The ulceration persists in the left calf, which is highly irregular in shape. There are increasing areas of epithelialization. Dimensions are documented elsewhere. There is no sign of infection or cellulitis. There is a moderate amount of bioburden. Skin: No rashes Wound Measurements and Assessment WC - Nurse 1 - General Ulcer Measurement Start: 02/22/19 10:58 Freq: Status: Active Protocol: Activity Type Activity Date Activity User E-Sign Co-Sign Detail Recorded Client Recorded Date Recorded By Document 03/08/19 11:34 [id number] 03/08/19 11:48 RB 03/08/19 11:34 Wound Center Nurse 1 [Ulcer Assessment] #5 LLE- Circumfrential -Combined with other wound No -Current Size (cm) - Length 31.5 -Current Size (cm) - Width 10 -Current Size (cm) - Depth 0.4 -Total Square Cm 315.0 -Tunneling No -Undermining/Tunneling No -Circular Undermining No -Exudate Amt Medium -Exudate Type Serosanguineous -Wound Margin Distinct, Outline Attached -Granulation Amt Large (67-100%) -Granulation Quality [place] Red -Slough/Fibrin Yes -Necrosis Amt Medium (34-66%) -Necrotic Tissue Type Adherent Slough -Structure Exposed N/A -Texture (Nahomy-wound Skin Appearance) Assessed Friable -Moisture (Nahomy-wound Skin Appearance Assessed ) -Color (Nahomy-wound Skin Appearance) Assessed -Temperature (Nahomy-wound Skin No Abnormality Appearance) (Pt Warm) -Tenderness on Palpation (Nahomy-wound No Skin Appearance) -Ulcer Cleansing Wound Cleanser -Anesthetic Used 4% Lidocaine Solution 5% Lidocaine Gel [Edema Assessment] -Lower Limb Edema Present Yes -Left Calf (cm) 44 -Left Ankle (cm) 24.5 - Nurse 2 - General Ulcer CM Notes Start: 02/22/19 10:58 Freq: Status: Active Protocol: Activity Type Activity Date Activity User E-Sign Co-Sign Detail Recorded Client Recorded Date Recorded By Document 03/08/19 12:28 AN [id number] 03/08/19 12:32 AN 03/08/19 12:28 Wound Center Nurse 2 [Procedure/Treatment] #5 LLE- Circumfrential -Time 12:28 -Correct Patient Yes -Correct Side, Site, Position Yes -Correct Procedure Yes -Procedure Performed Yes -Type of Procedure Debridement -Clinical Debridement Subcutaneous -Post Debridement Size (cm) - Length 31.6 -Post Debridement Size (cm) - Width 10.0 -Post Debridement Size (cm) - Depth 0.4 -Total Square Cm 316.00 -Wound/Ulcer Outcome Not Healed -Ulcer Cleansing Rinsed/ Irrigated with Saline -Foul Odor after Cleansing No -Bioengineered Tissue No -Bleeding Controlled with Pressure -Offloading No -Treatment Response Procedure Tolerated Well [See Physician Procedure note for Specifics] Pain Scale: 0-10 Numeric [Pain] -Is Patient Pain Free? Yes Neurological: Cranial nerves II-XII grossly intact, Neuro grossly intact Psych/Mental Status: Normal Affect, Appropriate, Alert and oriented to time, place, person, mood and affect Debridement Note Post-Debridement Measurements/Treatment - Nurse 2 - General Ulcer CM Notes Start: 02/22/19 10:58 Freq: Status: Active Protocol: Activity Type Activity Date Activity User E-Sign Co-Sign Detail Recorded Client Recorded Date Recorded By Document 02/22/19 11:31 DV [id number] 02/22/19 11:34 DV Document 03/08/19 12:28 AN [id number] 03/08/19 12:32 AN 02/22/19 03/08/19 11:31 12:28 Wound Center Nurse 2 #5 LLE- Circumfrential -Time 11:31 12:28 -Correct Patient Yes Yes -Correct Side, Site, Position Yes Yes -Correct Procedure Yes Yes -Procedure Performed Yes Yes -Type of Procedure Debridement Debridement -Clinical Debridement Subcutaneous Subcutaneous -Post Debridement Size (cm) - Length 14.0 31.6 -Post Debridement Size (cm) - Width 25.0 10.0 -Post Debridement Size (cm) - Depth 0.3 0.4 -Total Square Cm 350.00 316.00 -Wound/Ulcer Outcome Not Healed Not Healed -Ulcer Cleansing Rinsed/ Rinsed/ Irrigated with Irrigated with Saline Saline -Foul Odor after Cleansing No No -Bioengineered Tissue No No -Bleeding Controlled with Pressure Pressure -Offloading No -Treatment Response Procedure Procedure Tolerated Well Tolerated Well Pain Scale: 0-10 Numeric Is Patient Pain Free? Yes Yes Laterality: Left - Calf Type of Debridement: Excisional debridement Anesthesia Used: 5% Lidocaine Gel Depth: Down to and including healthy tissue, in the subcutaneous layer Percentage of wound debrided: 100 Instrument Used: 5mm curette Tissue Removed: Nonviable tissue and bioburden Severity: Fat Layer Exposed Amount of bleeding with debridement: Mild Bleeding Controlled with: Compression and gauze Patient tolerated procedure well Assessment/Plan Active Problems Chronic venous hypertension with inflammation involving left side (Chronic) Left leg swelling (Chronic) Varicose veins with ulcer and inflammation (Chronic) Leg edema, left (Chronic) Chronic venous insufficiency (Chronic) Lymphedema of left leg (Chronic) 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 She has a large irregular ulceration on the left lower extremity which is related to her venous disease. The patient has demonstrated slow but progressive improvement. We are to continue leg elevation, avoidance of idle standing and sitting, compression by means of SurePress, active lifestyle, weight control measures,etc. She is to continue to take a well-balanced, nutritious diet. We are to continue with the use of Silvadene topically. This will be applied topically on a daily basis. Plan: As above. The patient will return in 2 weeks for reevaluation. We are to continue Silvadene topically. Compression will be continued by means of SurePress which will be applied daily. Current measures include leg elevation, avoidance of idle standing and sitting, activity as tolerated, weight control, a nd compression by means of SurePress, applied by the patient on a daily basis. She is to continue with the use of XtraSorb for moisture control. The ulceration continues to be exudative, and the patient has been encouraged to enhance the amount of time spent elevating her lower extremity, to help minimize the drainage. Patient is to continue the use of Vasculera orally on a daily basis. Nutritional optimization has been recommended. The indicates that the patient is largely noncompliant with leg elevation. She spends long hours each day in an idle sitting position. We have discussed reevaluating the possibility of venous outflow obstruction in the left lower extremity, with knowledge that the patient has required previous stenting of the left iliac venous system. However, after discussion with the patient and her , the have declined this diagnostic option. Patient weight is 160 pounds. Patient is 5 feet 9 inches tall. BMI is 23.6. BMI is reasonable. The patient is not a smoker. Influenza vaccine was not administered.
== END 2019-03-11 23:59 ==
LOC: WC 11:15
PROVIDERS: Visit Provider Surgery
DX: I83.222 Varicose veins of left lower extremity with both ulcer of calf and inflammation (principal); R60.0 Localized edema; L97.222 Non-pressure chronic ulcer of left calf with fat layer exposed; I89.0 Lymphedema, not elsewhere classified; Z86.718 Personal history of other venous thrombosis and embolism; Z91.19 Patient's noncompliance with other medical treatment and regimen
CPT/HCPCS: 11042; 11045

== ENCOUNTER 2019-04-05 12:30 | Outpatient (RCR) | payer MEDICARE, BC, SELFPAY ==
[2019-03-12 00:42] VITALS: BP 149/66; PULSE 69; RESP 18; TEMP 36.1
[2019-03-22 10:34] VITALS: BP 154/78; PULSE 75; RESP 18; TEMP 36.2
--- NOTE | 2019-03-22 11:50 | PCM.WC.HP ---
(1) Chronic venous hypertension with inflammation involving left side Status: Chronic Current Visit: Yes Code(s): I87.322 - Chronic venous hypertension (idiopathic) with inflammation of left lower extremity (2) Left leg swelling Status: Chronic Current Visit: Yes Code(s): M79.89 - Other specified soft tissue disorders (3) Varicose veins with ulcer and inflammation Status: Chronic Current Visit: Yes Code(s): I83.209 - Varicose veins of unspecified lower extremity with both ulcer of unspecified site and inflammation; L97.909 - Non-pressure chronic ulcer of unspecified part of unspecified lower leg with unspecified severity (4) Leg edema, left Status: Chronic Current Visit: Yes Code(s): R60.0 - Localized edema (5) May-Thurner syndrome Status: Resolved Current Visit: No Code(s): I87.1 - Compression of vein (6) History of DVT (deep vein thrombosis) Status: Chronic Current Visit: Yes Code(s): Z86.718 - Personal history of other venous thrombosis and embolism Comment: left lower ext (7) dermatomycosis leg Status: Resolved Current Visit: No (8) Cellulitis, leg Status: Resolved Current Visit: No Qualifiers: Code(s): L03.119 - Cellulitis of unspecified part of limb (9) Erythema of skin Status: Resolved Current Visit: No Code(s): L53.9 - Erythematous condition, unspecified (10) Cellulitis of leg Status: Resolved Current Visit: No Qualifiers: Code(s): L03.119 - Cellulitis of unspecified part of limb (11) Cellulitis Status: Resolved Current Visit: No Code(s): L03.90 - Cellulitis, unspecified (12) Chronic venous insufficiency Status: Chronic Current Visit: Yes (13) Lymphedema of left leg Status: Chronic Current Visit: Yes Code(s): I89.0 - Lymphedema, not elsewhere classified (14) 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 Status: Chronic Current Visit: Yes Code(s): I87.039 - Postthrombotic syndrome with ulcer and inflammation of unspecified lower extremity (15) Calf ulcer Status: Chronic Current Visit: Yes Qualifiers: Laterality: left Non-pressure ulcer stage: with fat layer exposed Qualified Code(s): L97.222 - Non-pressure chronic ulcer of left calf with fat layer exposed Code(s): L97.209 - Non-pressure chronic ulcer of unspecified calf with unspecified severity (16) chronic left lower ext wound Status: Chronic Current Visit: Yes History of Present Illness Date of Service: 03/22/19 Chief Complaint: Chronic venous insufficiency, chronic venous hypertension with inflammation and ulceration, varicose veins with inflammation and ulceration, post phlebitic syndrome with inflammation and ulceration,leg swelling, leg edema, lymphedema, venous stasis ulceration-left lower extremity History of Wound: This is a 79-year-old white female with a long-standing history of chronic venous disease and swelling in her left lower extremity. This has been present for many years. She has a large ulceration located between her left knee and ankle, which is quite large and irregular in shape, and also highly exudative. 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 She has also previously undergone successful endovenous laser ablation of the left great and small saphenous veins. Healing of the patient's left lower extremity ulceration has been slow, but progressive. A number of healing measures have been implemented in the past, without success. We are currently using Silvadene topically and Xtrasorb for absorption of exudate. 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 (Chronic) chronic left lower ext wound (Chronic) Surgical History: appendectomy, hysterectomy Allergies/Adverse Reactions: Allergies Latex, Natural Rubber Allergy (Verified 07/12/13 11:34) Rash Sulfa (Sulfonamide Antibiotics) Allergy (Verified 07/12/13 11:34) Hives trimethoprim Allergy (Verified 07/12/13 11:34) Hives Home Medications: Ambulatory Orders Medication Instructions Recorded Aspirin [Aspirin, Baby] 81 mg PO DAILY@0800 07/12/13 Calcium Carb/Vitamin D [Os-Mo 1 tablet PO DAILY@0800 07/12/13 500MG + D] Clopidogrel Bisulfate [Plavix] 75 mg PO DAILY 07/12/13 Doxepin HCl [Sinequan] 100 mg PO BID 07/12/13 Doxycycline Monohydrate [Monodox] 100 mg PO BID 07/12/13 [place]-3 Fatty Acids/Fish Oil [Fish 1 each PO DAILY 07/12/13 Oil 1,000 mg Softgel] Vitamin B12 500 mg PO DAILY 07/12/13 Vitamin C 500 mg PO DAILY 07/12/13 proMETHazine soln (6.25mg/5mL) 5 ml PO Q4H PRN PRN 07/12/13 [Phenergan Plain] Prednisone [PredniSONE] 200 mg PO DAILY 07/03/14 Valacyclovir HCl [Valacyclovir] 500 mg PO DAILY 07/03/14 Smoking Status: Never smoker Tobacco Use: Non-smoker Review of Systems Constitutional: Denies: Chills, Fever, Weight Change Eyes: Denies: Pain, Vision Change HEENT: Denies: Difficulty Hearing, Difficulty Swallowing, Sinus Congestion Cardiovascular: Denies: Chest Pain, Palpitations Respiratory: Denies: Cough, Shortness of Breath Gastrointestinal: Denies: Diarrhea, Nausea, Vomiting Genitourinary: Denies: Dysuria, Hematuria Endocrine: Denies: Heat/ Cold Intolerance, Polydipsia, Polyuria Hematologic/ Lymphatic: Denies: Easy Bruising, Easy Bleeding - Physical Exam Vital Signs Temp Pulse Resp BP 97.1 F L 75 18 154/78 H 03/22/19 10:34 03/22/19 10:34 03/22/19 10:34 03/22/19 10:34 General: Alert, Oriented x3, Cooperative, No apparent distress, Well developed, Well nourished HEENT: Atraumatic, PERRLA, EOMI, Normocephalic Oral: Moist Mucosa Neck: No JVD Lungs: Normal air movement Abdomen: Non-Distended Extremities: No clubbing, No cyanosis, No Calf Tenderness, - - Swelling and edema persist in the left lower extremity. This is been chronic in nature. It is most notable on the dorsum of the left foot. The ulceration persists on the left calf. It is highly irregular in shape. Dimensions are documented elsewhere. There is a moderate amount of bioburden and nonviable tissue. There is no sign of infection or cellulitis. Skin: No rashes Wound Measurements and Assessment WC - Nurse 1 - General Ulcer Measurement Start: 03/22/19 10:33 Freq: Status: Active Protocol: Activity Type Activity Date Activity User E-Sign Co-Sign Detail Recorded Client Recorded Date Recorded By Document 03/22/19 10:34 [facility] [id number] 03/22/19 10:43 [facility] 03/22/19 10:34 Wound Center Nurse 1 [Ulcer Assessment] #5 LLE- Circumfrential -Current Size (cm) - Length 12.6 -Current Size (cm) - Width 24.5 -Current Size (cm) - Depth 0.2 -Total Square Cm 308.70 -Date of Last Picture (Recall this 03/22/19 field) -Photo Taken Yes -Epithelialization Small 1-33% -Classification - Thickness Full Thickness without Exposed Support Structure -Exudate Amt Large -Exudate Type Serosanguineous -Wound Margin Indistinct, Non -Visible -Granulation Amt Medium (34-66%) -Granulation Quality Red -Necrosis Amt Medium (34-66%) -Necrotic Tissue Type Adherent Slough -Structure Exposed None/Limited to Skin Breakdown -Texture (Nahomy-wound Skin Appearance) Assessed -Moisture (Nahomy-wound Skin Appearance Assessed ) Maceration -Color (Nahomy-wound Skin Appearance) Assessed -Temperature (Nahomy-wound Skin No Abnormality Appearance) (Pt Warm) -Tenderness on Palpation (Nahomy-wound No Skin Appearance) -Ulcer Cleansing Rinsed/ Irrigated with Saline -Foul Odor after Cleansing No -Anesthetic Used 4% Lidocaine Solution [Edema Assessment] -Left Calf (cm) 39.2 -Left Ankle (cm) 24.1 WC - Nurse 2 - General Ulcer CM Notes Start: 03/22/19 10:33 Freq: Status: Active Protocol: Activity Type Activity Date Activity User E-Sign Co-Sign Detail Recorded Client Recorded Date Recorded By Document 03/22/19 11:43 DV [id number] 03/22/19 11:47 DV 03/22/19 11:43 Wound Center Nurse 2 [Procedure/Treatment] #5 LLE- Circumfrential -Time 11:44 -Correct Patient Yes -Correct Side, Site, Position Yes -Correct Procedure Yes -Procedure Performed Yes -Type of Procedure Debridement -Clinical Debridement Subcutaneous -Post Debridement Size (cm) - Length 13.0 -Post Debridement Size (cm) - Width 25.0 -Post Debridement Size (cm) - Depth 0.2 -Total Square Cm 325.00 -Wound/Ulcer Outcome Amputation -Ulcer Cleansing Rinsed/ Irrigated with Saline -Foul Odor after Cleansing No -Bioengineered Tissue No -Bleeding Controlled with Pressure -Offloading No -Treatment Response Procedure Tolerated Well [See Physician Procedure note for Specifics] Pain Scale: 0-10 Numeric [Pain] -Is Patient Pain Free? Yes Neurological: Cranial nerves II-XII grossly intact, Neuro grossly intact Psych/Mental Status: Normal Affect, Appropriate, Alert and oriented to time, place, person, mood and affect Debridement Note Post-Debridement Measurements/Treatment WC - Nurse 2 - General Ulcer CM Notes Start: 03/22/19 10:33 Freq: Status: Active Protocol: Activity Type Activity Date Activity User E-Sign Co-Sign Detail Recorded Client Recorded Date Recorded By Document 03/22/19 11:43 DV [id number] 03/22/19 11:47 DV 03/22/19 11:43 Wound Center Nurse 2 #5 LLE- Circumfrential -Time 11:44 -Correct Patient Yes -Correct Side, Site, Position Yes -Correct Procedure Yes -Procedure Performed Yes -Type of Procedure Debridement -Clinical Debridement Subcutaneous -Post Debridement Size (cm) - Length 13.0 -Post Debridement Size (cm) - Width 25.0 -Post Debridement Size (cm) - Depth 0.2 -Total Square Cm 325.00 -Wound/Ulcer Outcome Amputation -Ulcer Cleansing Rinsed/ Irrigated with Saline -Foul Odor after Cleansing No -Bioengineered Tissue No -Bleeding Controlled with Pressure -Offloading No -Treatment Response Procedure Tolerated Well Pain Scale: 0-10 Numeric Is Patient Pain Free? Yes Laterality: Left - Calf Type of Debridement: Excisional debridement Anesthesia Used: 5% Lidocaine Gel Depth: Down to and including healthy tissue, in the subcutaneous layer Percentage of wound debrided: 100 Instrument Used: 5mm curette Tissue Removed: Bioburden and nonviable tissue Severity: Fat Layer Exposed Amount of bleeding with debridement: Mild Bleeding Controlled with: Compression and gauze Patient tolerated procedure well Assessment/Plan Active Problems Chronic venous hypertension with inflammation involving left side (Chronic) Left leg swelling (Chronic) Varicose veins with ulcer and inflammation (Chronic) Leg edema, left (Chronic) History of DVT (deep vein thrombosis) (Chronic) left lower ext Chronic venous insufficiency (Chronic) Lymphedema of left leg (Chronic) 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 She has a large irregular ulceration on the left lower extremity which is related to her venous disease. The patient has demonstrated slow but progressive improvement. We are to continue leg elevation, avoidance of idle standing and sitting, compression by means of SurePress, active lifestyle, weight control measures,etc. She is to continue to take a well-balanced, nutritious diet. We are to continue with the use of Silvadene topically. This will be applied topically on a daily basis. Plan: As above. The patient will return in 2 weeks for reevaluation. We are to continue Silvadene topically. Compression will be continued by means of SurePress which will be applied daily. Current measures include leg elevation, avoidance of idle standing and sitting, activity as tolerated, weight control, and compression by means of SurePress, applied by the patient on a daily basis. She is to continue with the use of XtraSorb for moisture control. The ulceration continues to be exudative, and the patient has been encouraged to enhance the amount of time spent elevating her lower extremity, to help minimize the drainage. Patient is to continue the use of Vasculera orally on a daily basis. Nutritional optimization has been recommended. The indicates that the patient is largely noncompliant with leg elevation. She spends long hours each day in an idle sitting position. We have discussed reevaluating the possibility of venous outflow obstruction in the left lower extremity, with knowledge that the patient has required previous stenting of the left iliac venous system. However, after discussion with the patient and her , they have declined this diagnostic option. Patient weight is 160 pounds. Patient is 5 feet 9 inches tall. BMI is 23.6. BMI is reasonable. The patient is not a smoker. Influenza vaccine was not administered.
[2019-04-05 12:10] VITALS: BP 155/83; PULSE 82; RESP 16; TEMP 37
--- NOTE | 2019-04-05 12:38 | PCM.WC.HP ---
(1) Chronic venous hypertension with inflammation involving left side Status: Chronic Current Visit: Yes Code(s): I87.322 - Chronic venous hypertension (idiopathic) with inflammation of left lower extremity (2) Left leg swelling Status: Chronic Current Visit: Yes Code(s): M79.89 - Other specified soft tissue disorders (3) Varicose veins with ulcer and inflammation Status: Chronic Current Visit: Yes Code(s): I83.209 - Varicose veins of unspecified lower extremity with both ulcer of unspecified site and inflammation; L97.909 - Non-pressure chronic ulcer of unspecified part of unspecified lower leg with unspecified severity (4) Leg edema, left Status: Chronic Current Visit: Yes Code(s): R60.0 - Localized edema (5) May-Thurner syndrome Status: Resolved Current Visit: No Code(s): I87.1 - Compression of vein (6) History of DVT (deep vein thrombosis) Status: Chronic Current Visit: Yes Code(s): Z86.718 - Personal history of other venous thrombosis and embolism Comment: left lower ext (7) dermatomycosis leg Status: Resolved Current Visit: No (8) Cellulitis, leg Status: Resolved Current Visit: No Qualifiers: Code(s): L03.119 - Cellulitis of unspecified part of limb (9) Erythema of skin Status: Resolved Current Visit: No Code(s): L53.9 - Erythematous condition, unspecified (10) Cellulitis of leg Status: Resolved Current Visit: No Qualifiers: Code(s): L03.119 - Cellulitis of unspecified part of limb (11) Cellulitis Status: Resolved Current Visit: No Code(s): L03.90 - Cellulitis, unspecified (12) Chronic venous insufficiency Status: Chronic Current Visit: Yes (13) Lymphedema of left leg Status: Chronic Current Visit: Yes Code(s): I89.0 - Lymphedema, not elsewhere classified (14) 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 Status: Chronic Current Visit: Yes Code(s): I87.039 - Postthrombotic syndrome with ulcer and inflammation of unspecified lower extremity (15) Calf ulcer Status: Chronic Current Visit: Yes Qualifiers: Laterality: left Non-pressure ulcer stage: with fat layer exposed Qualified Code(s): L97.222 - Non-pressure chronic ulcer of left calf with fat layer exposed Code(s): L97.209 - Non-pressure chronic ulcer of unspecified calf with unspecified severity (16) chronic left lower ext wound Status: Chronic Current Visit: Yes History of Present Illness Date of Service: 04/05/19 Chief Complaint: Chronic venous insufficiency, chronic venous hypertension with inflammation and ulceration, varicose veins with inflammation and ulceration, post phlebitic syndrome with inflammation and ulceration,leg swelling, leg edema, lymphedema, venous stasis ulceration-left lower extremity History of Wound: This is a 79-year-old white female with a long-standing history of chronic venous disease and swelling in her left lower extremity. This has been present for many years. She has a large ulceration located between her left knee and ankle, which is quite large and irregular in shape, and also highly exudative. 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 She has also previously undergone successful endovenous laser ablation of the left great and small saphenous veins. Healing of the patient's left lower extremity ulceration has been slow, but progressive. A number of healing measures have been implemented in the past, without success. We are currently using Silvadene topically and Xtrasorb for absorption of exudate. 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 (Chronic) chronic left lower ext wound (Chronic) Surgical History: appendectomy, hysterectomy Allergies/Adverse Reactions: Allergies Latex, Natural Rubber Allergy (Verified 07/12/13 11:34) Rash Sulfa (Sulfonamide Antibiotics) Allergy (Verified 07/12/13 11:34) Hives trimethoprim Allergy (Verified 07/12/13 11:34) Hives Home Medications: Ambulatory Orders Medication Instructions Recorded Aspirin [Aspirin, Baby] 81 mg PO DAILY@0800 07/12/13 Calcium Carb/Vitamin D [Os-Mo 1 tablet PO DAILY@0800 07/12/13 500MG + D] Clopidogrel Bisulfate [Plavix] 75 mg PO DAILY 07/12/13 Doxepin HCl [Sinequan] 100 mg PO BID 07/12/13 Doxycycline Monohydrate [Monodox] 100 mg PO BID 07/12/13 [place]-3 Fatty Acids/Fish Oil [Fish 1 each PO DAILY 07/12/13 Oil 1,000 mg Softgel] Vitamin B12 500 mg PO DAILY 07/12/13 Vitamin C 500 mg PO DAILY 07/12/13 proMETHazine soln (6.25mg/5mL) 5 ml PO Q4H PRN PRN 07/12/13 [Phenergan Plain] Prednisone [PredniSONE] 200 mg PO DAILY 07/03/14 Valacyclovir HCl [Valacyclovir] 500 mg PO DAILY 07/03/14 Smoking Status: Never smoker Tobacco Use: Non-smoker Review of Systems Constitutional: Denies: Chills, Fever, Weight Change Eyes: Denies: Pain, Vision Change HEENT: Denies: Difficulty Hearing, Difficulty Swallowing, Sinus Congestion Cardiovascular: Denies: Chest Pain, Palpitations Respiratory: Denies: Cough, Shortness of Breath Gastrointestinal: Denies: Diarrhea, Nausea, Vomiting Genitourinary: Denies: Dysuria, Hematuria Endocrine: Denies: Heat/ Cold Intolerance, Polydipsia, Polyuria Hematologic/ Lymphatic: Denies: Easy Bruising, Easy Bleeding - Physical Exam Vital Signs Temp Pulse Resp BP 98.6 F 82 16 155/83 H 04/05/19 12:10 04/05/19 12:10 04/05/19 12:10 04/05/19 12:10 General: Alert, Oriented x3, Cooperative, No apparent distress, Well developed, Well nourished HEENT: Atraumatic, PERRLA, EOMI, Normocephalic Oral: Moist Mucosa Neck: No JVD Lungs: Normal air movement Abdomen: Non-Distended Extremities: No clubbing, No cyanosis, No Calf Tenderness, - - Chronic swelling and edema persist in the left lower extremity. It is most notable on the dorsum of the left foot. This has been chronic in nature. The ulceration of the left calf persists as well. It is highly irregular in shape. Dimensions are documented elsewhere. There are large areas of epithelialization. There is a moderate amount of bioburden and nonviable tissue. There is no sign of infection or cellulitis. Skin: No rashes Wound Measurements and Assessment - Nurse 1 - General Ulcer Measurement Start: 03/22/19 10:33 Freq: Status: Active Protocol: Activity Type Activity Date Activity User E-Sign Co-Sign Detail Recorded Client Recorded Date Recorded By Document 04/05/19 12:10 TANYA [id number] 04/05/19 12:11 TANYA 04/05/19 12:10 Wound Center Nurse 1 [Ulcer Assessment] #5 LLE- Circumfrential -Combined with other wound No -Current Size (cm) - Length 10 -Current Size (cm) - Width 21 -Current Size (cm) - Depth 0.2 -Total Square Cm 210 -Photo Taken No -Epithelialization Small 1-33% -Tunneling No -Undermining/Tunneling No -Circular Undermining No -Exudate Amt Large -Exudate Type Serosanguineous -Wound Margin Flat & Intact -Granulation Amt Medium (34-66%) -Granulation Quality Red -Slough/Fibrin Yes -Necrosis Amt Large (67-100%) -Necrotic Tissue Type Adherent Slough -Structure Exposed N/A -Texture (Nahomy-wound Skin Appearance) Assessed, Localized Edema -Moisture (Nahomy-wound Skin Appearance Assessed,Dry/ ) Scaly -Color (Nahomy-wound Skin Appearance) Assessed, Hemosiderin Staining -Temperature (Nahomy-wound Skin No Abnormality Appearance) (Pt Warm) -Tenderness on Palpation (Nahomy-wound No Skin Appearance) -Ulcer Cleansing Wound Cleanser -Foul Odor after Cleansing No -Anesthetic Used 4% Lidocaine Solution [Edema Assessment] -Lower Limb Edema Present Yes -Left Calf (cm) 41.5 -Left Ankle (cm) 24.6 - Nurse 2 - General Ulcer CM Notes Start: 03/22/19 10:33 Freq: Status: Active Protocol: Activity Type Activity Date Activity User E-Sign Co-Sign Detail Recorded Client Recorded Date Recorded By Document 04/05/19 12:32 RICH [id number] 04/05/19 12:37 DV 04/05/19 12:32 Wound Center Nurse 2 [Procedure/Treatment] #5 LLE- Circumfrential -Time 12:34 -Correct Patient Yes -Correct Side, Site, Position Yes -Correct Procedure Yes -Procedure Performed Yes -Type of Procedure Debridement -Clinical Debridement Subcutaneous -Post Debridement Size (cm) - Length 12.0 -Post Debridement Size (cm) - Width 23.0 -Post Debridement Size (cm) - Depth 0.2 -Total Square Cm 276.00 -Wound/Ulcer Outcome Not Healed -Ulcer Cleansing Rinsed/ Irrigated with Saline -Foul Odor after Cleansing No -Bioengineered Tissue No -Bleeding Controlled with Pressure -Offloading No -Treatment Response Procedure Tolerated Well [See Physician Procedure note for Specifics] Pain Scale: 0-10 Numeric [Pain] -Is Patient Pain Free? Yes Musculoskeletal: No Muscle Wasting Neurological: Cranial nerves II-XII grossly intact, Neuro grossly intact Psych/Mental Status: Normal Affect, Appropriate, Alert and oriented to time, place, person, mood and affect Debridement Note Post-Debridement Measurements/Treatment WC - Nurse 2 - General Ulcer CM Notes Start: 03/22/19 10:33 Freq: Status: Active Protocol: Activity Type Activity Date Activity User E-Sign Co-Sign Detail Recorded Client Recorded Date Recorded By Document 03/22/19 11:43 DV [id number] 03/22/19 11:47 DV Document 04/05/19 12:32 DV [id number] 04/05/19 12:37 DV 03/22/19 04/05/19 11:43 12:32 Wound Center Nurse 2 #5 LLE- Circumfrential -Time 11:44 12:34 -Correct Patient Yes Yes -Correct Side, Site, Position Yes Yes -Correct Procedure Yes Yes -Procedure Performed Yes Yes -Type of Procedure Debridement Debridement -Clinical Debridement Subcutaneous Subcutaneous -Post Debridement Size (cm) - Length 13.0 12.0 -Post Debridement Size (cm) - Width 25.0 23.0 -Post Debridement Size (cm) - Depth 0.2 0.2 -Total Square Cm 325.00 276.00 -Wound/Ulcer Outcome Amputation Not Healed -Ulcer Cleansing Rinsed/ Rinsed/ Irrigated with Irrigated with Saline Saline -Foul Odor after Cleansing No No -Bioengineered Tissue No No -Bleeding Controlled with Pressure Pressure -Offloading No No -Treatment Response Procedure Procedure Tolerated Well Tolerated Well Pain Scale: 0-10 Numeric Is Patient Pain Free? Yes Yes Laterality: Left - Calf Type of Debridement: Excisional debridement Anesthesia Used: 5% Lidocaine Gel Depth: Down to and including healthy tissue, in the subcutaneous layer Percentage of wound debrided: 100 Instrument Used: 5mm curette Tissue Removed: Bioburden and nonviable tissue Severity: Fat Layer Exposed Amount of bleeding with debridement: Mild Bleeding Controlled with: Compression and gauze Patient tolerated procedure well Assessment/Plan Active Problems Chronic venous hypertension with inflammation involving left side (Chronic) Left leg swelling (Chronic) Varicose veins with ulcer and inflammation (Chronic) Leg edema, left (Chronic) History of DVT (deep vein thrombosis) (Chronic) left lower ext Chronic venous insufficiency (Chronic) Lymphedema of left leg (Chronic) 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 She has a large irregular ulceration on the left lower extremity which is related to her venous disease. The patient has demonstrated slow but progressive improvement. We are to continue leg elevation, avoidance of idle standing and sitting, compression by means of SurePress, active lifestyle, weight control measures,etc. She is to continue to take a well-balanced, nutritious diet. We are to continue with the use of Silvadene topically. This will be applied topically on a daily basis. Plan: As above. The patient will return in 2 weeks for reevaluation. We are to continue Silvadene topically. Compression will be continued by means of SurePress which will be applied daily. Current measures include leg elevation, avoidance of idle standing and sitting, activity as tolerated, weight control, and compression by means of SurePress, applied by the patient on a daily basis. She is to continue with the use of XtraSorb for moisture control. The ulceration continues to be exudative, and the patient has been encouraged to enhance the amount of time spent elevating her lower extremity, to help minimize the drainage. Patient is to continue the use of Vasculera orally on a daily basis. Nutritional optimization has been recommended. The indicates that the patient is largely noncompliant with leg elevation. She spends long hours each day in an idle sitting position. We have discussed reevaluating the possibility of venous outflow obstruction in the left lower extremity, with knowledge that the patient has required previous stenting of the left iliac venous system. However, after discussion with the patient and her , they have declined this diagnostic option. Patient weight is 160 pounds. Patient is 5 feet 9 inches tall. BMI is 23.6. BMI is reasonable. The patient is not a smoker. Influenza vaccine was not administered.
== END 2019-04-10 23:59 ==
LOC: WC 12:30
PROVIDERS: Visit Provider Surgery
DX: I83.222 Varicose veins of left lower extremity with both ulcer of calf and inflammation (principal); R60.0 Localized edema; I89.0 Lymphedema, not elsewhere classified; L97.222 Non-pressure chronic ulcer of left calf with fat layer exposed; Z86.718 Personal history of other venous thrombosis and embolism; Z91.19 Patient's noncompliance with other medical treatment and regimen
CPT/HCPCS: 11042; 11045

== ENCOUNTER 2019-05-03 12:00 | Outpatient (RCR) | payer MEDICARE, BC, SELFPAY ==
[2019-04-11 00:28] VITALS: BP 155/83; PULSE 82; RESP 16; TEMP 37
[2019-04-19 12:01] VITALS: BP 145/79; PULSE 75; RESP 16; TEMP 36.6
--- NOTE | 2019-04-19 13:11 | PCM.WC.HP ---
(1) Chronic venous hypertension with inflammation involving left side Status: Chronic Current Visit: Yes Code(s): I87.322 - Chronic venous hypertension (idiopathic) with inflammation of left lower extremity (2) Left leg swelling Status: Chronic Current Visit: Yes Code(s): M79.89 - Other specified soft tissue disorders (3) Varicose veins with ulcer and inflammation Status: Chronic Current Visit: Yes Code(s): I83.209 - Varicose veins of unspecified lower extremity with both ulcer of unspecified site and inflammation; L97.909 - Non-pressure chronic ulcer of unspecified part of unspecified lower leg with unspecified severity (4) Leg edema, left Status: Chronic Current Visit: Yes Code(s): R60.0 - Localized edema (5) May-Thurner syndrome Status: Resolved Current Visit: No Code(s): I87.1 - Compression of vein (6) History of DVT (deep vein thrombosis) Status: Chronic Current Visit: Yes Code(s): Z86.718 - Personal history of other venous thrombosis and embolism Comment: left lower ext (7) dermatomycosis leg Status: Resolved Current Visit: No (8) Cellulitis, leg Status: Resolved Current Visit: No Qualifiers: Code(s): L03.119 - Cellulitis of unspecified part of limb (9) Erythema of skin Status: Resolved Current Visit: No Code(s): L53.9 - Erythematous condition, unspecified (10) Cellulitis of leg Status: Resolved Current Visit: No Qualifiers: Code(s): L03.119 - Cellulitis of unspecified part of limb (11) Cellulitis Status: Resolved Current Visit: No Code(s): L03.90 - Cellulitis, unspecified (12) Chronic venous insufficiency Status: Chronic Current Visit: Yes (13) Lymphedema of left leg Status: Chronic Current Visit: Yes Code(s): I89.0 - Lymphedema, not elsewhere classified (14) 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 Status: Chronic Current Visit: Yes Code(s): I87.039 - Postthrombotic syndrome with ulcer and inflammation of unspecified lower extremity (15) Calf ulcer Status: Chronic Current Visit: Yes Qualifiers: Laterality: left Non-pressure ulcer stage: with fat layer exposed Qualified Code(s): L97.222 - Non-pressure chronic ulcer of left calf with fat layer exposed Code(s): L97.209 - Non-pressure chronic ulcer of unspecified calf with unspecified severity (16) chronic left lower ext wound Status: Chronic Current Visit: Yes History of Present Illness Date of Service: 04/19/19 Chief Complaint: Chronic venous insufficiency, chronic venous hypertension with inflammation and ulceration, varicose veins with inflammation and ulceration, post phlebitic syndrome with inflammation and ulceration,leg swelling, leg edema, lymphedema, venous stasis ulceration-left lower extremity History of Wound: This is a 79-year-old white female with a long-standing history of chronic venous disease and swelling in her left lower extremity. This has been present for many years. She has a large ulceration located between her left knee and ankle, which is quite large and irregular in shape, and also highly exudative. 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 She has also previously undergone successful endovenous laser ablation of the left great and small saphenous veins. Healing of the patient's left lower extremity ulceration has been slow, but progressive. A number of healing measures have been implemented in the past, without success. We are currently using Silvadene topically and Xtrasorb for absorption of exudate. 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 (Chronic) chronic left lower ext wound (Chronic) Surgical History: appendectomy, hysterectomy Allergies/Adverse Reactions: Allergies Latex, Natural Rubber Allergy (Verified 07/12/13 11:34) Rash Sulfa (Sulfonamide Antibiotics) Allergy (Verified 07/12/13 11:34) Hives trimethoprim Allergy (Verified 07/12/13 11:34) Hives Home Medications: Ambulatory Orders Medication Instructions Recorded Aspirin [Aspirin, Baby] 81 mg PO DAILY@0800 07/12/13 Calcium Carb/Vitamin D [Os-Mo 1 tablet PO DAILY@0800 07/12/13 500MG + D] Clopidogrel Bisulfate [Plavix] 75 mg PO DAILY 07/12/13 Doxepin HCl [Sinequan] 100 mg PO BID 07/12/13 Doxycycline Monohydrate [Monodox] 100 mg PO BID 07/12/13 [place]-3 Fatty Acids/Fish Oil [Fish 1 each PO DAILY 07/12/13 Oil 1,000 mg Softgel] Vitamin B12 500 mg PO DAILY 07/12/13 Vitamin C 500 mg PO DAILY 07/12/13 proMETHazine soln (6.25mg/5mL) 5 ml PO Q4H PRN PRN 07/12/13 [Phenergan Plain] Prednisone [PredniSONE] 200 mg PO DAILY 07/03/14 Valacyclovir HCl [Valacyclovir] 500 mg PO DAILY 07/03/14 Smoking Status: Never smoker Tobacco Use: Non-smoker Review of Systems Constitutional: Denies: Chills, Fever, Weight Change Eyes: Denies: Pain, Vision Change HEENT: Denies: Difficulty Hearing, Difficulty Swallowing, Sinus Congestion Cardiovascular: Denies: Chest Pain, Palpitations Respiratory: Denies: Cough, Shortness of Breath Gastrointestinal: Denies: Diarrhea, Nausea, Vomiting Genitourinary: Denies: Dysuria, Hematuria Endocrine: Denies: Heat/ Cold Intolerance, Polydipsia, Polyuria Hematologic/ Lymphatic: Denies: Easy Bruising, Easy Bleeding - Physical Exam Vital Signs Temp Pulse Resp BP 97.8 F 75 16 145/79 H 04/19/19 12:01 04/19/19 12:01 04/19/19 12:01 04/19/19 12:01 General: Alert, Oriented x3, Cooperative, No apparent distress, Well developed, Well nourished HEENT: Atraumatic, PERRLA, EOMI, Normocephalic Oral: Moist Mucosa Neck: No JVD Lungs: Normal air movement Abdomen: Non-Distended Extremities: No clubbing, No cyanosis, No Calf Tenderness, - - Swelling and edema persist in the patient's left lower extremity, most notable on the dorsum of the left foot. This is chronic in nature. The ulceration of the left calf persists. There are increasing areas of epithelialization. The ulceration is highly irregular in shape. There is a moderate amount of bioburden and nonviable tissue present. There is no sign of infection or cellulitis. Dimensions are documented elsewhere. Skin: No rashes Wound Measurements and Assessment WC - Nurse 1 - General Ulcer Measurement Start: 04/19/19 12:00 Freq: Status: Active Protocol: Activity Type Activity Date Activity User E-Sign Co-Sign Detail Recorded Client Recorded Date Recorded By Document 04/19/19 12:01 MW [id number] 04/19/19 12:05 MW 04/19/19 12:01 Wound Center Nurse 1 [Ulcer Assessment] #5 LLE- Circumfrential -Combined with other wound No -Current Size (cm) - Length 10.5 -Current Size (cm) - Width 19.8 -Current Size (cm) - Depth 0.1 -Total Square Cm 207.90 -Date of Last Picture (Recall this 04/19/19 field) -Photo Taken Yes -Epithelialization Small 1-33% -Tunneling No -Undermining/Tunneling No -Circular Undermining No -Exudate Amt Medium -Exudate Type Serous -Wound Margin Flat & Intact -Granulation Amt Small (1-33%) -Granulation Quality Red -Slough/Fibrin Yes -Necrosis Amt Large (67-100%) -Necrotic Tissue Type Adherent Slough -Structure Exposed N/A -Texture (Nahomy-wound Skin Appearance) Assessed, Localized Edema ,Scarring -Moisture (Nahomy-wound Skin Appearance Assessed,Dry/ ) Scaly -Color (Nahomy-wound Skin Appearance) Assessed, Hemosiderin Staining -Temperature (Nahomy-wound Skin No Abnormality Appearance) (Pt Warm) -Ulcer Cleansing soap and water -Foul Odor after Cleansing No -Anesthetic Used 4% Lidocaine Solution [Edema Assessment] -Lower Limb Edema Present Yes -Left Calf (cm) 41.5 -Left Ankle (cm) 23.8 - Nurse 2 - General Ulcer CM Notes Start: 04/19/19 12:00 Freq: Status: Active Protocol: Activity Type Activity Date Activity User E-Sign Co-Sign Detail Recorded Client Recorded Date Recorded By Document 04/19/19 12:31 DV [id number] 04/19/19 12:33 DV 04/19/19 12:31 Wound Center Nurse 2 [Procedure/Treatment] #5 LLE- Circumfrential -Time 12:32 -Correct Patient Yes -Correct Side, Site, Position Yes -Correct Procedure Yes -Procedure Performed Yes -Type of Procedure Debridement -Clinical Debridement Subcutaneous -Post Debridement Size (cm) - Length 11.0 -Post Debridement Size (cm) - Width 20.0 -Post Debridement Size (cm) - Depth 0.3 -Total Square Cm 220.00 -Wound/Ulcer Outcome Not Healed -Ulcer Cleansing Rinsed/ Irrigated with Saline -Foul Odor after Cleansing No -Bioengineered Tissue No -Bleeding Controlled with Pressure -Offloading No -Treatment Response Procedure Tolerated Well [See Physician Procedure note for Specifics] Pain Scale: 0-10 Numeric [Pain] -Is Patient Pain Free? Yes Musculoskeletal: No Muscle Wasting Neurological: Cranial nerves II-XII grossly intact, Neuro grossly intact Psych/Mental Status: Normal Affect, Appropriate, Alert and oriented to time, place, person, mood and affect Debridement Note Post-Debridement Measurements/Treatment WC - Nurse 2 - General Ulcer CM Notes Start: 04/19/19 12:00 Freq: Status: Active Protocol: Activity Type Activity Date Activity User E-Sign Co-Sign Detail Recorded Client Recorded Date Recorded By Document 04/19/19 12:31 DV [id number] 04/19/19 12:33 DV 04/19/19 12:31 Wound Center Nurse 2 #5 LLE- Circumfrential -Time 12:32 -Correct Patient Yes -Correct Side, Site, Position Yes -Correct Procedure Yes -Procedure Performed Yes -Type of Procedure Debridement -Clinical Debridement Subcutaneous -Post Debridement Size (cm) - Length 11.0 -Post Debridement Size (cm) - Width 20.0 -Post Debridement Size (cm) - Depth 0.3 -Total Square Cm 220.00 -Wound/Ulcer Outcome Not Healed -Ulcer Cleansing Rinsed/ Irrigated with Saline -Foul Odor after Cleansing No -Bioengineered Tissue No -Bleeding Controlled with Pressure -Offloading No -Treatment Response Procedure Tolerated Well Pain Scale: 0-10 Numeric Is Patient Pain Free? Yes Laterality: Left - Calf Type of Debridement: Excisional debridement Anesthesia Used: 5% Lidocaine Gel Depth: Down to and including healthy tissue, in the subcutaneous layer Percentage of wound debrided: 100 Instrument Used: 5mm curette Tissue Removed: Nonviable tissue and bioburden Severity: Fat Layer Exposed Amount of bleeding with debridement: Mild Bleeding Controlled with: Compression and gauze Patient tolerated procedure well Assessment/Plan Active Problems Chronic venous hypertension with inflammation involving left side (Chronic) Left leg swelling (Chronic) Varicose veins with ulcer and inflammation (Chronic) Leg edema, left (Chronic) History of DVT (deep vein thrombosis) (Chronic) left lower ext Chronic venous insufficiency (Chronic) Lymphedema of left leg (Chronic) 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 She has a large irregular ulceration on the left lower extremity which is related to her venous disease. The patient has demonstrated slow but progressive improvement. We are to continue leg elevation, avoidance of idle standing and sitting, compression by means of SurePress, active lifestyle, weight control measures,etc. She is to continue to take a well-balanced, nutritious diet. We are to continue with the use of Silvadene topically. This will be applied topically on a daily basis. Plan: As above. The patient will return in 2 weeks for reevaluation. We are to continue Silvadene topically. Compression will be continued by means of SurePress which will be applied daily. Current measures include leg elevation, avoidance of idle standing and sitting, activity as tolerated, weight control, and compression by means of SurePress, applied by the patient on a daily basis. She is to continue with the use of XtraSorb for moisture control. The ulceration continues to be exudative, and the patient has been encouraged to enhance the amount of time spent elevating her lower extremity, to help minimize the drainage. Patient is to continue the use of Vasculera orally on a daily basis. Nutritional optimization has been recommended. The indicates that the patient is largely noncompliant with leg elevation. She spends long hours each day in an idle sitting position. We have discussed reevaluating the possibility of venous outflow obstruction in the left lower extremity, with knowledge that the patient has required previous stenting of the left iliac venous system. However, after discussion with the patient and her , they have declined this diagnostic option. Patient weight is 160 pounds. Patient is 5 feet 9 inches tall. BMI is 23.6. BMI is reasonable. The patient is not a smoker. Influenza vaccine was not administered.
[2019-05-03 12:01] VITALS: BP 139/76; PULSE 68; RESP 18; TEMP 36.6
--- NOTE | 2019-05-03 12:33 | HP.PCM_ITS ---
(1) Chronic venous hypertension with inflammation involving left side Status: Chronic Current Visit: Yes Code(s): I87.322 - Chronic venous hypertension (idiopathic) with inflammation of left lower extremity (2) Left leg swelling Status: Chronic Current Visit: Yes Code(s): M79.89 - Other specified soft tissue disorders (3) Varicose veins with ulcer and inflammation Status: Chronic Current Visit: Yes Code(s): I83.209 - Varicose veins of unspecified lower extremity with both ulcer of unspecified site and inflammation; L97.909 - Non-pressure chronic ulcer of unspecified part of unspecified lower leg with unspecified severity (4) Leg edema, left Status: Chronic Current Visit: Yes Code(s): R60.0 - Localized edema (5) History of DVT (deep vein thrombosis) Status: Chronic Current Visit: Yes Code(s): Z86.718 - Personal history of other venous thrombosis and embolism Comment: left lower ext (6) Chronic venous insufficiency Status: Chronic Current Visit: Yes (7) Lymphedema of left leg Status: Chronic Current Visit: Yes Code(s): I89.0 - Lymphedema, not elsewhere classified (8) 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 Status: Chronic Current Visit: Yes Code(s): I87.039 - Postthrombotic syndrome with ulcer and inflammation of unspecified lower extremity (9) Calf ulcer Status: Chronic Current Visit: Yes Qualifiers: Laterality: left Non-pressure ulcer stage: with fat layer exposed Qualified Code(s): L97.222 - Non-pressure chronic ulcer of left calf with fat layer exposed Code(s): L97.209 - Non-pressure chronic ulcer of unspecified calf with unspecified severity (10) chronic left lower ext wound Status: Chronic Current Visit: Yes History of Present Illness Date of Service: 05/03/19 Chief Complaint: Chronic venous insufficiency, chronic venous hypertension with inflammation and ulceration, varicose veins with inflammation and ulceration, post phlebitic syndrome with inflammation and ulceration,leg swelling, leg edema, lymphedema, venous stasis ulceration-left lower extremity History of Wound: This is a 79-year-old white female with a long-standing history of chronic venous disease and swelling in her left lower extremity. This has been present for many years. She has a large ulceration located between her left knee and ankle, which is quite large and irregular in shape, and also highly exudative. 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 She has also previously undergone successful endovenous laser ablation of the left great and small saphenous veins. Healing of the patient's left lower extremity ulceration has been slow, but progressive. A number of healing measures have been implemented in the past, without success. We are currently using Silvadene topically and Xtrasorb for absorption of exudate. 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 (Chronic) chronic left lower ext wound (Chronic) Surgical History: appendectomy, hysterectomy Allergies/Adverse Reactions: Allergies Latex, Natural Rubber Allergy (Verified 07/12/13 11:34) Rash Sulfa (Sulfonamide Antibiotics) Allergy (Verified 07/12/13 11:34) Hives trimethoprim Allergy (Verified 07/12/13 11:34) Hives Home Medications: Ambulatory Orders Medication Instructions Recorded Aspirin [Aspirin, Baby] 81 mg PO DAILY@0800 07/12/13 Calcium Carb/Vitamin D [Os-Mo 1 tablet PO DAILY@0800 07/12/13 500MG + D] Clopidogrel Bisulfate [Plavix] 75 mg PO DAILY 07/12/13 Doxepin HCl [Sinequan] 100 mg PO BID 07/12/13 Doxycycline Monohydrate [Monodox] 100 mg PO BID 07/12/13 [place]-3 Fatty Acids/Fish Oil [Fish 1 each PO DAILY 07/12/13 Oil 1,000 mg Softgel] Vitamin B12 500 mg PO DAILY 07/12/13 Vitamin C 500 mg PO DAILY 07/12/13 proMETHazine soln (6.25mg/5mL) 5 ml PO Q4H PRN PRN 07/12/13 [Phenergan Plain] Prednisone [PredniSONE] 200 mg PO DAILY 07/03/14 Valacyclovir HCl [Valacyclovir] 500 mg PO DAILY 07/03/14 Smoking Status: Never smoker Tobacco Use: Non-smoker Review of Systems Constitutional: Denies: Chills, Fever, Weight Change Eyes: Denies: Pain, Vision Change HEENT: Denies: Difficulty Hearing, Difficulty Swallowing, Sinus Congestion Cardiovascular: Denies: Chest Pain, Palpitations Respiratory: Denies: Cough, Shortness of Breath Gastrointestinal: Denies: Diarrhea, Nausea, Vomiting Genitourinary: Denies: Dysuria, Hematuria Endocrine: Denies: Heat/ Cold Intolerance, Polydipsia, Polyuria Hematologic/ Lymphatic: Denies: Easy Bruising, Easy Bleeding - Physical Exam Vital Signs Temp Pulse Resp BP 97.8 F 68 18 139/76 H 05/03/19 12:01 05/03/19 12:01 05/03/19 12:01 05/03/19 12:01 General: Alert, Oriented x3, Cooperative, No apparent distress, Well developed, Well nourished HEENT: Atraumatic, PERRLA, EOMI, Normocephalic Oral: Moist Mucosa Neck: No JVD Lungs: Normal air movement Abdomen: Non-Distended Extremities: No clubbing, No cyanosis, No Calf Tenderness, - - Chronic swelling and edema persist in the left lower extremity. This is most notable on the dorsum of the left foot. The ulceration on the left calf persists as well. It is highly irregular in shape. There are increasing areas of epithelialization. The base of the ulceration is pink and healthy, with a moderate amount of bioburden and nonviable tissue. Dimensions are documented elsewhere. There is no sign of infection or cellulitis. Skin: No rashes Wound Measurements and Assessment WC - Nurse 1 - General Ulcer Measurement Start: 04/19/19 12:00 Freq: Status: Active Protocol: Activity Type Activity Date Activity User E-Sign Co-Sign Detail Recorded Client Recorded Date Recorded By Document 05/03/19 12:01 DL [id number] 05/03/19 12:10 DL 05/03/19 12:01 Wound Center Nurse 1 [Ulcer Assessment] #5 LLE- Circumfrential -Current Size (cm) - Length 11 -Current Size (cm) - Width 23 -Current Size (cm) - Depth 0.2 -Total Square Cm 253 -Photo Taken No -Exudate Amt Medium -Exudate Type Yellow/Green -Wound Margin Indistinct, Non -Visible -Granulation Amt Medium (34-66%) -Granulation Quality Red -Necrosis Amt Medium (34-66%) -Necrotic Tissue Type Adherent Slough -Structure Exposed N/A -Texture (Nahomy-wound Skin Appearance) Localized Edema ,Scarring -Moisture (Nahomy-wound Skin Appearance Dry/Scaly ) -Color (Nahomy-wound Skin Appearance) Hemosiderin Staining -Temperature (Nahomy-wound Skin No Abnormality Appearance) (Pt Warm) -Tenderness on Palpation (Nahomy-wound No Skin Appearance) -Ulcer Cleansing Wound Cleanser -Foul Odor after Cleansing No -Anesthetic Used 4% Lidocaine Solution [Edema Assessment] -Left Calf (cm) 40.6 -Left Ankle (cm) 23.5 WC - Nurse 2 - General Ulcer CM Notes Start: 04/19/19 12:00 Freq: Status: Active Protocol: Activity Type Activity Date Activity User E-Sign Co-Sign Detail Recorded Client Recorded Date Recorded By Document 05/03/19 12:23 DV [id number] 05/03/19 12:26 DV 05/03/19 12:23 Wound Center Nurse 2 [Procedure/Treatment] #5 LLE- Circumfrential -Time 12:23 -Correct Patient Yes -Correct Side, Site, Position Yes -Correct Procedure Yes -Procedure Performed Yes -Type of Procedure Debridement -Clinical Debridement Subcutaneous -Post Debridement Size (cm) - Length 11.5 -Post Debridement Size (cm) - Width 23.0 -Post Debridement Size (cm) - Depth 0.3 -Total Square Cm 264.50 -Wound/Ulcer Outcome Not Healed -Ulcer Cleansing Rinsed/ Irrigated with Saline -Foul Odor after Cleansing No -Bioengineered Tissue No -Bleeding Controlled with Pressure -Offloading No -Treatment Response Procedure Tolerated Well [See Physician Procedure note for Specifics] Pain Scale: 0-10 Numeric [Pain] -Is Patient Pain Free? Yes Neurological: Cranial nerves II-XII grossly intact, Neuro grossly intact Psych/Mental Status: Normal Affect, Appropriate, Alert and oriented to time, place, person, mood and affect Debridement Note Post-Debridement Measurements/Treatment WC - Nurse 2 - General Ulcer CM Notes Start: 04/19/19 12:00 Freq: Status: Active Protocol: Activity Type Activity Date Activity User E-Sign Co-Sign Detail Recorded Client Recorded Date Recorded By Document 04/19/19 12:31 DV [id number] 04/19/19 12:33 DV Document 05/03/19 12:23 DV [id number] 05/03/19 12:26 DV 04/19/19 05/03/19 12:31 12:23 Wound Center Nurse 2 #5 LLE- Circumfrential -Time 12:32 12:23 -Correct Patient Yes Yes -Correct Side, Site, Position Yes Yes -Correct Procedure Yes Yes -Procedure Performed Yes Yes -Type of Procedure Debridement Debridement -Clinical Debridement Subcutaneous Subcutaneous -Post Debridement Size (cm) - Length 11.0 11.5 -Post Debridement Size (cm) - Width 20.0 23.0 -Post Debridement Size (cm) - Depth 0.3 0.3 -Total Square Cm 220.00 264.50 -Wound/Ulcer Outcome Not Healed Not Healed -Ulcer Cleansing Rinsed/ Rinsed/ Irrigated with Irrigated with Saline Saline -Foul Odor after Cleansing No No -Bioengineered Tissue No No -Bleeding Controlled with Pressure Pressure -Offloading No No -Treatment Response Procedure Procedure Tolerated Well Tolerated Well Pain Scale: 0-10 Numeric Is Patient Pain Free? Yes Yes Laterality: Left - Calf Type of Debridement: Excisional debridement Anesthesia Used: 5% Lidocaine Gel Depth: Down to and including healthy tissue, in the subcutaneous layer Percentage of wound debrided: 100 Instrument Used: 7mm curette Tissue Removed: Bioburden and nonviable tissue Severity: Fat Layer Exposed Amount of bleeding with debridement: Mild Bleeding Controlled with: Compression and gauze Patient tolerated procedure well Assessment/Plan Active Problems Chronic venous hypertension with inflammation involving left side (Chronic) Left leg swelling (Chronic) Varicose veins with ulcer and inflammation (Chronic) Leg edema, left (Chronic) History of DVT (deep vein thrombosis) (Chronic) left lower ext Chronic venous insufficiency (Chronic) Lymphedema of left leg (Chronic) 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 She has a large irregular ulceration on the left lower extremity which is related to her venous disease. The patient has demonstrated slow but progressive improvement. We are to continue leg elevation, avoidance of idle standing and sitting, compression by means of SurePress, active lifestyle, weight control measures,etc. She is to continue to take a well-balanced, nutritious diet. We are to continue with the use of Silvadene topically. This will be applied topically on a daily basis. Plan: As above. The patient will return in 2 weeks for reevaluation. We are to continue Silvadene topically. Compression will be continued by means of SurePress which will be applied daily. Current measures include leg elevation, avoidance of idle standing and sitting, activity as tolerated, weight control, and compression by means of SurePress, applied by the patient on a daily basis. She is to continue with the use of XtraSorb for moisture control. The ulceration continues to be exudative, and the patient has been encouraged to enhance the amount of time spent elevating her lower extremity, to help minimize the drainage. Patient is to continue the use of Vasculera orally on a daily basis. Nutritional optimization has been recommended. The indicates that the patient is largely noncompliant with leg elevation. She spends long hours each day in an idle sitting position. We have discussed reevaluating the possibility of venous outflow obstruction in the left lower extremity, with knowledge that the patient has required previous stenting of the left iliac venous system. However, after discussion with the patient and her , they have declined this diagnostic option. Patient weight is 160 pounds. Patient is 5 feet 9 inches tall. BMI is 23.6. BMI is reasonable. The patient is not a smoker. Influenza vaccine was not administered.
== END 2019-05-11 23:59 ==
LOC: WC 12:00
PROVIDERS: Visit Provider Surgery
DX: I83.222 Varicose veins of left lower extremity with both ulcer of calf and inflammation (principal); R60.0 Localized edema; L97.222 Non-pressure chronic ulcer of left calf with fat layer exposed; I89.0 Lymphedema, not elsewhere classified; Z86.718 Personal history of other venous thrombosis and embolism; Z91.19 Patient's noncompliance with other medical treatment and regimen; M79.89 Other specified soft tissue disorders; Z79.52 Long term (current) use of systemic steroids; Z79.899 Other long term (current) drug therapy; Z79.02 Long term (current) use of antithrombotics/antiplatelets
CPT/HCPCS: 11042; 11045

== ENCOUNTER 2019-05-31 12:00 | Outpatient (RCR) | payer MEDICARE, BC, SELFPAY ==
[2019-05-12 00:33] VITALS: BP 139/76; PULSE 68; RESP 18; TEMP 36.6
[2019-05-17 12:03] VITALS: BP 142/71; PULSE 68; RESP 20; TEMP 36.4
--- NOTE | 2019-05-17 13:12 | PCM.WC.HP ---
(1) Chronic venous hypertension with inflammation involving left side Status: Chronic Current Visit: Yes Code(s): I87.322 - Chronic venous hypertension (idiopathic) with inflammation of left lower extremity (2) Left leg swelling Status: Chronic Current Visit: Yes Code(s): M79.89 - Other specified soft tissue disorders (3) Varicose veins with ulcer and inflammation Status: Chronic Current Visit: Yes Code(s): I83.209 - Varicose veins of unspecified lower extremity with both ulcer of unspecified site and inflammation; L97.909 - Non-pressure chronic ulcer of unspecified part of unspecified lower leg with unspecified severity (4) Leg edema, left Status: Chronic Current Visit: Yes Code(s): R60.0 - Localized edema (5) May-Thurner syndrome Status: Resolved Current Visit: No Code(s): I87.1 - Compression of vein (6) History of DVT (deep vein thrombosis) Status: Chronic Current Visit: No Code(s): Z86.718 - Personal history of other venous thrombosis and embolism Comment: left lower ext (7) dermatomycosis leg Status: Resolved Current Visit: No (8) Cellulitis, leg Status: Resolved Current Visit: No Qualifiers: Code(s): L03.119 - Cellulitis of unspecified part of limb (9) Erythema of skin Status: Resolved Current Visit: No Code(s): L53.9 - Erythematous condition, unspecified (10) Cellulitis of leg Status: Resolved Current Visit: No Qualifiers: Code(s): L03.119 - Cellulitis of unspecified part of limb (11) Cellulitis Status: Resolved Current Visit: No Code(s): L03.90 - Cellulitis, unspecified (12) Chronic venous insufficiency Status: Chronic Current Visit: Yes (13) Lymphedema of left leg Status: Chronic Current Visit: Yes Code(s): I89.0 - Lymphedema, not elsewhere classified (14) 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 Status: Chronic Current Visit: Yes Code(s): I87.039 - Postthrombotic syndrome with ulcer and inflammation of unspecified lower extremity (15) Calf ulcer Status: Chronic Current Visit: Yes Qualifiers: Laterality: left Non-pressure ulcer stage: with fat layer exposed Qualified Code(s): L97.222 - Non-pressure chronic ulcer of left calf with fat layer exposed Code(s): L97.209 - Non-pressure chronic ulcer of unspecified calf with unspecified severity (16) chronic left lower ext wound Status: Chronic Current Visit: No History of Present Illness Date of Service: 05/17/19 Chief Complaint: Chronic venous insufficiency, chronic venous hypertension with inflammation and ulceration, varicose veins with inflammation and ulceration, post phlebitic syndrome with inflammation and ulceration,leg swelling, leg edema, lymphedema, venous stasis ulceration-left lower extremity History of Wound: This is a 79-year-old white female with a long-standing history of chronic venous disease and swelling in her left lower extremity. This has been present for many years. She has a large ulceration located between her left knee and ankle, which is quite large and irregular in shape, and also highly exudative. 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 She has also previously undergone successful endovenous laser ablation of the left great and small saphenous veins. Healing of the patient's left lower extremity ulceration has been slow, but progressive. A number of healing measures have been implemented in the past, without success. We are currently using Silvadene topically and Xtrasorb for absorption of exudate. 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 (Chronic) chronic left lower ext wound (Chronic) Surgical History: appendectomy, hysterectomy Allergies/Adverse Reactions: Allergies Latex, Natural Rubber Allergy (Verified 07/12/13 11:34) Rash Sulfa (Sulfonamide Antibiotics) Allergy (Verified 07/12/13 11:34) Hives trimethoprim Allergy (Verified 07/12/13 11:34) Hives Home Medications: Ambulatory Orders Medication Instructions Recorded Aspirin [Aspirin, Baby] 81 mg PO DAILY@0800 07/12/13 Calcium Carb/Vitamin D [Os-Mo 1 tablet PO DAILY@0800 07/12/13 500MG + D] Clopidogrel Bisulfate [Plavix] 75 mg PO DAILY 07/12/13 Doxepin HCl [Sinequan] 100 mg PO BID 07/12/13 Doxycycline Monohydrate [Monodox] 100 mg PO BID 07/12/13 [place]-3 Fatty Acids/Fish Oil [Fish 1 each PO DAILY 07/12/13 Oil 1,000 mg Softgel] Vitamin B12 500 mg PO DAILY 07/12/13 Vitamin C 500 mg PO DAILY 07/12/13 proMETHazine soln (6.25mg/5mL) 5 ml PO Q4H PRN PRN 07/12/13 [Phenergan Plain] Prednisone [PredniSONE] 200 mg PO DAILY 07/03/14 Valacyclovir HCl [Valacyclovir] 500 mg PO DAILY 07/03/14 Smoking Status: Never smoker Tobacco Use: Non-smoker Review of Systems Constitutional: Denies: Chills, Fever, Weight Change Eyes: Denies: Pain, Vision Change HEENT: Denies: Difficulty Hearing, Difficulty Swallowing, Sinus Congestion Cardiovascular: Denies: Chest Pain, Palpitations Respiratory: Denies: Cough, Shortness of Breath Gastrointestinal: Denies: Diarrhea, Nausea, Vomiting Genitourinary: Denies: Dysuria, Hematuria Endocrine: Denies: Heat/ Cold Intolerance, Polydipsia, Polyuria Hematologic/ Lymphatic: Denies: Easy Bruising, Easy Bleeding - Physical Exam Vital Signs Temp Pulse Resp BP 97.5 F L 68 20 H 142/71 H 05/17/19 12:03 05/17/19 12:03 05/17/19 12:03 05/17/19 12:03 General: Alert, Oriented x3, Cooperative, No apparent distress, Well developed, Well nourished HEENT: Atraumatic, PERRLA, EOMI, Normocephalic Oral: Moist Mucosa Neck: No JVD Lungs: Normal air movement Abdomen: Non-Distended Extremities: No clubbing, No cyanosis, No Calf Tenderness, - - Swelling and edema persist in the left lower extremity. It is most notable on the dorsum of the left foot, which is chronic. The ulceration of the left calf persists. There are increasing areas of epithelialization. There is no sign of infection or cellulitis. Dimensions are documented elsewhere. There is a moderate amount of bioburden and nonviable tissue. Skin: No rashes Wound Measurements and Assessment WC - Nurse 1 - General Ulcer Measurement Start: 05/17/19 12:03 Freq: Status: Active Protocol: Activity Type Activity Date Activity User E-Sign Co-Sign Detail Recorded Client Recorded Date Recorded By Document 05/17/19 12:03 DL [id number] 05/17/19 12:13 DL 05/17/19 12:03 Wound Center Nurse 1 [Ulcer Assessment] #5 LLE- Circumfrential -Current Size (cm) - Length 10 -Current Size (cm) - Width 22.5 -Current Size (cm) - Depth 0.2 -Total Square Cm 225.0 -Photo Taken No -Exudate Amt Medium -Exudate Type Yellow/Green -Wound Margin Indistinct, Non -Visible -Granulation Amt Medium (34-66%) -Granulation Quality Red -Necrosis Amt Medium (34-66%) -Necrotic Tissue Type Adherent Slough -Structure Exposed N/A -Texture (Nahomy-wound Skin Appearance) Localized Edema ,Scarring -Moisture (Nahomy-wound Skin Appearance No Abnormality ) -Color (Nahomy-wound Skin Appearance) Hemosiderin Staining,Rubor -Temperature (Nahomy-wound Skin No Abnormality Appearance) (Pt Warm) -Tenderness on Palpation (Nahomy-wound No Skin Appearance) -Ulcer Cleansing Wound Cleanser -Foul Odor after Cleansing No -Anesthetic Used 4% Lidocaine Solution [Edema Assessment] -Left Calf (cm) 40.5 -Left Ankle (cm) 23.5 WC - Nurse 2 - General Ulcer CM Notes Start: 05/17/19 12:03 Freq: Status: Active Protocol: Activity Type Activity Date Activity User E-Sign Co-Sign Detail Recorded Client Recorded Date Recorded By Document 05/17/19 12:59 DV [id number] 05/17/19 13:01 DV 05/17/19 12:59 Wound Center Nurse 2 [Procedure/Treatment] #5 LLE- Circumfrential -Time 12:59 -Correct Patient Yes -Correct Side, Site, Position Yes -Correct Procedure Yes -Procedure Performed Yes -Type of Procedure Debridement -Clinical Debridement Subcutaneous -Post Debridement Size (cm) - Length 11.0 -Post Debridement Size (cm) - Width 22.0 -Post Debridement Size (cm) - Depth 0.2 -Total Square Cm 242.00 -Wound/Ulcer Outcome Not Healed -Ulcer Cleansing Rinsed/ Irrigated with Saline -Foul Odor after Cleansing No -Bioengineered Tissue No -Bleeding Controlled with Pressure -Offloading No -Treatment Response Procedure Tolerated Well [See Physician Procedure note for Specifics] Pain Scale: 0-10 Numeric [Pain] -Is Patient Pain Free? Yes Musculoskeletal: No Muscle Wasting Neurological: Cranial nerves II-XII grossly intact, Neuro grossly intact Psych/Mental Status: Normal Affect, Appropriate, Alert and oriented to time, place, person, mood and affect Debridement Note Post-Debridement Measurements/Treatment WC - Nurse 2 - General Ulcer CM Notes Start: 05/17/19 12:03 Freq: Status: Active Protocol: Activity Type Activity Date Activity User E-Sign Co-Sign Detail Recorded Client Recorded Date Recorded By Document 05/17/19 12:59 DV [id number] 05/17/19 13:01 DV 05/17/19 12:59 Wound Center Nurse 2 #5 LLE- Circumfrential -Time 12:59 -Correct Patient Yes -Correct Side, Site, Position Yes -Correct Procedure Yes -Procedure Performed Yes -Type of Procedure Debridement -Clinical Debridement Subcutaneous -Post Debridement Size (cm) - Length 11.0 -Post Debridement Size (cm) - Width 22.0 -Post Debridement Size (cm) - Depth 0.2 -Total Square Cm 242.00 -Wound/Ulcer Outcome Not Healed -Ulcer Cleansing Rinsed/ Irrigated with Saline -Foul Odor after Cleansing No -Bioengineered Tissue No -Bleeding Controlled with Pressure -Offloading No -Treatment Response Procedure Tolerated Well Pain Scale: 0-10 Numeric Is Patient Pain Free? Yes Laterality: Left - Calf Type of Debridement: Excisional debridement Anesthesia Used: 5% Lidocaine Gel Depth: Down to and including healthy tissue, in the subcutaneous layer Percentage of wound debrided: 100 Instrument Used: 5mm curette Severity: Fat Layer Exposed Amount of bleeding with debridement: Mild Bleeding Controlled with: Compression and gauze Patient tolerated procedure well Assessment/Plan Active Problems Chronic venous hypertension with inflammation involving left side (Chronic) Left leg swelling (Chronic) Varicose veins with ulcer and inflammation (Chronic) Leg edema, left (Chronic) Chronic venous insufficiency (Chronic) Lymphedema of left leg (Chronic) 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 She has a large irregular ulceration on the left lower extremity which is related to her venous disease. The patient has demonstrated slow but progressive improvement. We are to continue leg elevation, avoidance of idle standing and sitting, compression by means of SurePress, active lifestyle, weight control measures,etc. She is to continue to take a well-balanced, nutritious diet. We are to continue with the use of Silvadene topically. This will be applied topically on a daily basis. Plan: As above. The patient will return in 2 weeks for reevaluation. We are to continue Silvadene topically. Compression will be continued by means of SurePress which will be applied daily. Current measures include leg elevation, avoidance of idle standing and sitting, activity as tolerated, weight control, and compression by means of SurePress, applied by the patient on a daily basis. She is to continue with the use of XtraSorb for moisture control. The ulceration continues to be exudative, and the patient has been encouraged to enhance the amount of time spent elevating her lower extremity, to help minimize the drainage. Patient is to continue the use of Vasculera orally on a daily basis. Nutritional optimization has been recommended. The indicates that the patient is largely noncompliant with leg elevation. She spends long hours each day in an idle sitting position. Patient weight is 160 pounds. Patient is 5 feet 9 inches tall. BMI is 23.6. BMI is reasonable. The patient is not a smoker. Influenza vaccine was not administered.
[2019-05-31 12:06] VITALS: BP 148/80; PULSE 75; RESP 16; TEMP 36.4
--- NOTE | 2019-05-31 13:25 | HP.PCM_ITS ---
(1) Chronic venous hypertension with inflammation involving left side Status: Chronic Current Visit: Yes Code(s): I87.322 - Chronic venous hypertension (idiopathic) with inflammation of left lower extremity (2) Left leg swelling Status: Chronic Current Visit: Yes Code(s): M79.89 - Other specified soft tissue disorders (3) Varicose veins with ulcer and inflammation Status: Chronic Current Visit: Yes Code(s): I83.209 - Varicose veins of unspecified lower extremity with both ulcer of unspecified site and inflammation; L97.909 - Non-pressure chronic ulcer of unspecified part of unspecified lower leg with unspecified severity (4) Leg edema, left Status: Chronic Current Visit: Yes Code(s): R60.0 - Localized edema (5) History of DVT (deep vein thrombosis) Status: Chronic Current Visit: No Code(s): Z86.718 - Personal history of other venous thrombosis and embolism Comment: left lower ext (6) Chronic venous insufficiency Status: Chronic Current Visit: Yes (7) Lymphedema of left leg Status: Chronic Current Visit: Yes Code(s): I89.0 - Lymphedema, not elsewhere classified (8) 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 Status: Chronic Current Visit: Yes Code(s): I87.039 - Postthrombotic syndrome with ulcer and inflammation of unspecified lower extremity (9) Calf ulcer Status: Chronic Current Visit: Yes Qualifiers: Laterality: left Non-pressure ulcer stage: with fat layer exposed Qualified Code(s): L97.222 - Non-pressure chronic ulcer of left calf with fat layer exposed Code(s): L97.209 - Non-pressure chronic ulcer of unspecified calf with unspecified severity (10) chronic left lower ext wound Status: Chronic Current Visit: No History of Present Illness Date of Service: 05/31/19 Chief Complaint: Chronic venous insufficiency, chronic venous hypertension with inflammation and ulceration, varicose veins with inflammation and ulceration, post phlebitic syndrome with inflammation and ulceration,leg swelling, leg edema, lymphedema, venous stasis ulceration-left lower extremity History of Wound: This is a 79-year-old white female with a long-standing history of chronic venous disease and swelling in her left lower extremity. This has been present for many years. She has a large ulceration located between her left knee and ankle, which is quite large and irregular in shape, and also highly exudative. 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 She has also previously undergone successful endovenous laser ablation of the left great and small saphenous veins. Healing of the patient's left lower extremity ulceration has been slow, but progressive. A number of healing measures have been implemented in the past, without success. We are currently using Silvadene topically and Xtrasorb for absorption of exudate. 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 (Chronic) chronic left lower ext wound (Chronic) Surgical History: appendectomy, hysterectomy Allergies/Adverse Reactions: Allergies Latex, Natural Rubber Allergy (Verified 07/12/13 11:34) Rash Sulfa (Sulfonamide Antibiotics) Allergy (Verified 07/12/13 11:34) Hives trimethoprim Allergy (Verified 07/12/13 11:34) Hives Home Medications: Ambulatory Orders Medication Instructions Recorded Aspirin [Aspirin, Baby] 81 mg PO DAILY@0800 07/12/13 Calcium Carb/Vitamin D [Os-Mo 1 tablet PO DAILY@0800 07/12/13 500MG + D] Clopidogrel Bisulfate [Plavix] 75 mg PO DAILY 07/12/13 Doxepin HCl [Sinequan] 100 mg PO BID 07/12/13 Doxycycline Monohydrate [Monodox] 100 mg PO BID 07/12/13 [place]-3 Fatty Acids/Fish Oil [Fish 1 each PO DAILY 07/12/13 Oil 1,000 mg Softgel] Vitamin B12 500 mg PO DAILY 07/12/13 Vitamin C 500 mg PO DAILY 07/12/13 proMETHazine soln (6.25mg/5mL) 5 ml PO Q4H PRN PRN 07/12/13 [Phenergan Plain] Prednisone [PredniSONE] 200 mg PO DAILY 07/03/14 Valacyclovir HCl [Valacyclovir] 500 mg PO DAILY 07/03/14 Smoking Status: Never smoker Tobacco Use: Non-smoker Review of Systems Constitutional: Denies: Chills, Fever, Weight Change Eyes: Denies: Pain, Vision Change HEENT: Denies: Difficulty Hearing, Difficulty Swallowing, Sinus Congestion Cardiovascular: Denies: Chest Pain, Palpitations Respiratory: Denies: Cough, Shortness of Breath Gastrointestinal: Denies: Diarrhea, Nausea, Vomiting Genitourinary: Denies: Dysuria, Hematuria Endocrine: Denies: Heat/ Cold Intolerance, Polydipsia, Polyuria Hematologic/ Lymphatic: Denies: Easy Bruising, Easy Bleeding - Physical Exam Vital Signs Temp Pulse Resp BP 97.5 F L 75 16 148/80 H 05/31/19 12:06 05/31/19 12:06 05/31/19 12:06 05/31/19 12:06 General: Alert, Oriented x3, Cooperative, No apparent distress, Well developed, Well nourished HEENT: Atraumatic, PERRLA, EOMI, Normocephalic Oral: Moist Mucosa Neck: No JVD Lungs: Normal air movement Abdomen: Non-Distended Extremities: No clubbing, No cyanosis, No Calf Tenderness, - - Swelling and edema persist in the patient's left lower extremity, primarily on the dorsum of the left foot. This has been chronic in nature. The ulceration of the left calf persists. It is highly irregular in shape. It appears to be decreasing in size overall. There are numerous skin bridges and areas of epithelialization. The unhealed portion of the ulceration is generally pink, with areas of active granulation tissue. There is also a moderate amount of bioburden and nonviable tissue. There is no sign of infection or cellulitis. Dimensions are documented elsewhere. Skin: No rashes Wound Measurements and Assessment WC - Nurse 1 - General Ulcer Measurement Start: 05/17/19 12:03 Freq: Status: Active Protocol: Activity Type Activity Date Activity User E-Sign Co-Sign Detail Recorded Client Recorded Date Recorded By Document 05/31/19 12:06 MW [id number] 05/31/19 12:16 MW 05/31/19 12:06 Wound Center Nurse 1 [Ulcer Assessment] #5 LLE- Circumfrential -Combined with other wound No -Current Size (cm) - Length 11.5 -Current Size (cm) - Width 23.5 -Current Size (cm) - Depth 0.1 -Total Square Cm 270.25 -Photo Taken No -Epithelialization None Present -Tunneling No -Undermining/Tunneling No -Circular Undermining No -Exudate Amt Large -Exudate Type Serosanguineous -Wound Margin Flat & Intact -Granulation Amt Medium (34-66%) -Granulation Quality [place] -Slough/Fibrin Yes -Necrosis Amt Medium (34-66%) -Necrotic Tissue Type Adherent Slough -Structure Exposed N/A -Texture (Nahomy-wound Skin Appearance) Assessed, Localized Edema ,Scarring -Moisture (Nahomy-wound Skin Appearance Assessed ) -Color (Nahomy-wound Skin Appearance) Assessed -Temperature (Nahomy-wound Skin No Abnormality Appearance) (Pt Warm) -Tenderness on Palpation (Nahomy-wound No Skin Appearance) -Ulcer Cleansing soap and water -Foul Odor after Cleansing No -Anesthetic Used 4% Lidocaine Solution [Edema Assessment] -Lower Limb Edema Present Yes -Right Calf (cm) 36.2 -Right Ankle (cm) 24.5 WC - Nurse 2 - General Ulcer CM Notes Start: 05/17/19 12:03 Freq: Status: Active Protocol: Activity Type Activity Date Activity User E-Sign Co-Sign Detail Recorded Client Recorded Date Recorded By Document 05/31/19 12:24 DV [id number] 05/31/19 12:26 DV 05/31/19 12:24 Wound Center Nurse 2 [Procedure/Treatment] #5 LLE- Circumfrential -Time 12:25 -Correct Patient Yes -Correct Side, Site, Position Yes -Correct Procedure Yes -Procedure Performed Yes -Type of Procedure Debridement -Clinical Debridement Subcutaneous -Post Debridement Size (cm) - Length 12.0 -Post Debridement Size (cm) - Width 23.0 -Post Debridement Size (cm) - Depth 0.1 -Total Square Cm 276.00 -Wound/Ulcer Outcome Not Healed -Ulcer Cleansing Rinsed/ Irrigated with Saline -Foul Odor after Cleansing No -Bioengineered Tissue No -Bleeding Controlled with Pressure -Offloading No -Treatment Response Procedure Tolerated Well [See Physician Procedure note for Specifics] Pain Scale: 0-10 Numeric [Pain] -Is Patient Pain Free? Yes Musculoskeletal: No Muscle Wasting Neurological: Cranial nerves II-XII grossly intact, Neuro grossly intact Psych/Mental Status: Normal Affect, Appropriate, Alert and oriented to time, place, person, mood and affect Debridement Note Post-Debridement Measurements/Treatment - Nurse 2 - General Ulcer CM Notes Start: 05/17/19 12:03 Freq: Status: Active Protocol: Activity Type Activity Date Activity User E-Sign Co-Sign Detail Recorded Client Recorded Date Recorded By Document 05/17/19 12:59 DV [id number] 05/17/19 13:01 DV Document 05/31/19 12:24 DV [id number] 05/31/19 12:26 DV 05/17/19 05/31/19 12:59 12:24 Wound Center Nurse 2 #5 LLE- Circumfrential -Time 12:59 12:25 -Correct Patient Yes Yes -Correct Side, Site, Position Yes Yes -Correct Procedure Yes Yes -Procedure Performed Yes Yes -Type of Procedure Debridement Debridement -Clinical Debridement Subcutaneous Subcutaneous -Post Debridement Size (cm) - Length 11.0 12.0 -Post Debridement Size (cm) - Width 22.0 23.0 -Post Debridement Size (cm) - Depth 0.2 0.1 -Total Square Cm 242.00 276.00 -Wound/Ulcer Outcome Not Healed Not Healed -Ulcer Cleansing Rinsed/ Rinsed/ Irrigated with Irrigated with Saline Saline -Foul Odor after Cleansing No No -Bioengineered Tissue No No -Bleeding Controlled with Pressure Pressure -Offloading No No -Treatment Response Procedure Procedure Tolerated Well Tolerated Well Pain Scale: 0-10 Numeric Is Patient Pain Free? Yes Yes Laterality: Left - Calf Type of Debridement: Excisional debridement Anesthesia Used: 5% Lidocaine Gel Depth: Down to and including healthy tissue, in the subcutaneous layer Percentage of wound debrided: 100 Instrument Used: 7mm curette Tissue Removed: Bioburden and nonviable tissue Severity: Fat Layer Exposed Amount of bleeding with debridement: Mild Bleeding Controlled with: Compression and gauze Patient tolerated procedure well Assessment/Plan Active Problems Chronic venous hypertension with inflammation involving left side (Chronic) Left leg swelling (Chronic) Varicose veins with ulcer and inflammation (Chronic) Leg edema, left (Chronic) Chronic venous insufficiency (Chronic) Lymphedema of left leg (Chronic) 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 She has a large irregular ulceration on the left lower extremity which is related to her venous disease. The patient has demonstrated slow but progressive improvement. We are to continue leg elevation, avoidance of idle standing and sitting, compression by means of SurePress, active lifestyle, weight control measures,etc. She is to continue to take a well-balanced, nutritious diet. We are to continue with the use of Silvadene topically. This will be applied topically on a daily basis. Plan: As above. The patient will return in 2 weeks for reevaluation. We are to continue Silvadene topically. Compression will be continued by means of SurePress which will be applied daily. Current measures include leg elevation, avoidance of idle standing and sitting, activity as tolerated, weight control, and compression by means of SurePress, applied by the patient on a daily basis. She is to continue with the use of XtraSorb for moisture control. The ulceration continues to be exudative, and the patient has been encouraged to enhance the amount of time spent elevating her lower extremity, to help minimize the drainage. Patient is to continue the use of Vasculera orally on a daily basis. Nutritional optimization has been recommended. The indicates that the patient is largely noncompliant with leg elevation. She spends long hours each day in an idle sitting position. Patient weight is 160 pounds. Patient is 5 feet 9 inches tall. BMI is 23.6. BMI is reasonable. The patient is not a smoker. Influenza vaccine was not administered.
== END 2019-06-11 23:59 ==
LOC: WC 12:00
PROVIDERS: Visit Provider Surgery
DX: I83.222 Varicose veins of left lower extremity with both ulcer of calf and inflammation (principal); R60.0 Localized edema; L97.222 Non-pressure chronic ulcer of left calf with fat layer exposed; Z86.718 Personal history of other venous thrombosis and embolism; I89.0 Lymphedema, not elsewhere classified; M79.89 Other specified soft tissue disorders
CPT/HCPCS: 11042; 11045

== ENCOUNTER 2019-06-28 12:00 | Outpatient (RCR) | payer MEDICARE, BC, SELFPAY ==
[2019-06-12 00:28] VITALS: BP 148/80; PULSE 75; RESP 16; TEMP 36.4
[2019-06-14 11:57] VITALS: BP 119/67; PULSE 74; RESP 18; TEMP 37.2
--- NOTE | 2019-06-14 12:31 | HP.PCM_ITS ---
(1) Chronic venous hypertension with inflammation involving left side Status: Chronic Current Visit: Yes Code(s): I87.322 - Chronic venous hypertension (idiopathic) with inflammation of left lower extremity (2) Left leg swelling Status: Chronic Current Visit: Yes Code(s): M79.89 - Other specified soft tissue disorders (3) Varicose veins with ulcer and inflammation Status: Chronic Current Visit: Yes Code(s): I83.209 - Varicose veins of unspecified lower extremity with both ulcer of unspecified site and inflammation; L97.909 - Non-pressure chronic ulcer of unspecified part of unspecified lower leg with unspecified severity (4) Leg edema, left Status: Chronic Current Visit: Yes Code(s): R60.0 - Localized edema (5) May-Thurner syndrome Status: Resolved Current Visit: No Code(s): I87.1 - Compression of vein (6) History of DVT (deep vein thrombosis) Status: Chronic Current Visit: Yes Code(s): Z86.718 - Personal history of other venous thrombosis and embolism Comment: left lower ext (7) dermatomycosis leg Status: Resolved Current Visit: No (8) Cellulitis, leg Status: Resolved Current Visit: No Qualifiers: Code(s): L03.119 - Cellulitis of unspecified part of limb (9) Erythema of skin Status: Resolved Current Visit: No Code(s): L53.9 - Erythematous condition, unspecified (10) Cellulitis of leg Status: Resolved Current Visit: No Qualifiers: Code(s): L03.119 - Cellulitis of unspecified part of limb (11) Cellulitis Status: Resolved Current Visit: No Code(s): L03.90 - Cellulitis, unspecified (12) Chronic venous insufficiency Status: Chronic Current Visit: Yes (13) Lymphedema of left leg Status: Chronic Current Visit: Yes Code(s): I89.0 - Lymphedema, not elsewhere classified (14) 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 Status: Chronic Current Visit: Yes Code(s): I87.039 - Postthrombotic syndrome with ulcer and inflammation of unspecified lower extremity (15) Calf ulcer Status: Chronic Current Visit: Yes Qualifiers: Laterality: left Non-pressure ulcer stage: with fat layer exposed Qualified Code(s): L97.222 - Non-pressure chronic ulcer of left calf with fat layer exposed Code(s): L97.209 - Non-pressure chronic ulcer of unspecified calf with unspecified severity (16) chronic left lower ext wound Status: Chronic Current Visit: Yes History of Present Illness Date of Service: 06/14/19 Chief Complaint: Chronic venous insufficiency, chronic venous hypertension with inflammation and ulceration, varicose veins with inflammation and ulceration, post phlebitic syndrome with inflammation and ulceration,leg swelling, leg edema, lymphedema, venous stasis ulceration-left lower extremity History of Wound: This is a 79-year-old white female with a long-standing history of chronic venous disease and swelling in her left lower extremity. This has been present for many years. She has a large ulceration located between her left knee and ankle, which is quite large and irregular in shape, and also highly exudative. 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 She has also previously undergone successful endovenous laser ablation of the left great and small saphenous veins. Healing of the patient's left lower extremity ulceration has been slow, but progressive. A number of healing measures have been implemented in the past, without success. We are currently using Silvadene topically and Xtrasorb for absorption of exudate. 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 (Chronic) chronic left lower ext wound (Chronic) Surgical History: appendectomy, hysterectomy Allergies/Adverse Reactions: Allergies Latex, Natural Rubber Allergy (Verified 07/12/13 11:34) Rash Sulfa (Sulfonamide Antibiotics) Allergy (Verified 07/12/13 11:34) Hives trimethoprim Allergy (Verified 07/12/13 11:34) Hives Home Medications: Ambulatory Orders Medication Instructions Recorded Aspirin [Aspirin, Baby] 81 mg PO DAILY@0800 07/12/13 Calcium Carb/Vitamin D [Os-Mo 1 tablet PO DAILY@0800 07/12/13 500MG + D] Clopidogrel Bisulfate [Plavix] 75 mg PO DAILY 07/12/13 Doxepin HCl [Sinequan] 100 mg PO BID 07/12/13 Doxycycline Monohydrate [Monodox] 100 mg PO BID 07/12/13 [place]-3 Fatty Acids/Fish Oil [Fish 1 each PO DAILY 07/12/13 Oil 1,000 mg Softgel] Vitamin B12 500 mg PO DAILY 07/12/13 Vitamin C 500 mg PO DAILY 07/12/13 proMETHazine soln (6.25mg/5mL) 5 ml PO Q4H PRN PRN 07/12/13 [Phenergan Plain] Prednisone [PredniSONE] 200 mg PO DAILY 07/03/14 Valacyclovir HCl [Valacyclovir] 500 mg PO DAILY 07/03/14 Smoking Status: Never smoker Tobacco Use: Non-smoker Review of Systems Constitutional: Denies: Chills, Fever, Weight Change Eyes: Denies: Pain, Vision Change HEENT: Denies: Difficulty Hearing, Difficulty Swallowing, Sinus Congestion Cardiovascular: Denies: Chest Pain, Palpitations Respiratory: Denies: Cough, Shortness of Breath Gastrointestinal: Denies: Diarrhea, Nausea, Vomiting Genitourinary: Denies: Dysuria, Hematuria Endocrine: Denies: Heat/ Cold Intolerance, Polydipsia, Polyuria Hematologic/ Lymphatic: Denies: Easy Bruising, Easy Bleeding - Physical Exam Vital Signs Temp Pulse Resp BP 98.9 F 74 18 119/67 06/14/19 11:57 06/14/19 11:57 06/14/19 11:57 06/14/19 11:57 General: Alert, Oriented x3, Cooperative, No apparent distress, Well developed, Well nourished HEENT: Atraumatic, PERRLA, EOMI, Normocephalic Oral: Moist Mucosa Neck: No JVD Lungs: Normal air movement Abdomen: Non-Distended Extremities: No clubbing, No cyanosis, No Calf Tenderness, - - Chronic swelling and edema persist in the patient's left lower extremity. It is most notable on the dorsum of the left foot. Well. It is highly irregular in shape. There are multiple skin bridges and areas of epithelialization. There is a moderate amount of bioburden and nonviable tissue. Ulcer dimensions are documented elsewhere. There is no sign of infection or cellulitis. Skin: No rashes Wound Measurements and Assessment WC - Nurse 1 - General Ulcer Measurement Start: 06/14/19 11:57 Freq: Status: Active Protocol: Activity Type Activity Date Activity User E-Sign Co-Sign Detail Recorded Client Recorded Date Recorded By Document 06/14/19 11:57 DOLLY [id number] 06/14/19 12:14 DOLLY 06/14/19 11:57 Wound Center Nurse 1 [Ulcer Assessment] #5 LLE- Circumfrential -Combined with other wound No -Current Size (cm) - Length 12 -Current Size (cm) - Width 24 -Current Size (cm) - Depth 0.2 -Total Square Cm 288 -Tunneling No -Undermining/Tunneling No -Circular Undermining No -Exudate Amt Large -Exudate Type Serosanguineous -Wound Margin Distinct, Outline Attached -Granulation Amt Medium (34-66%) -Granulation Quality [place] -Slough/Fibrin Yes -Necrosis Amt Medium (34-66%) -Necrotic Tissue Type Adherent Slough -Structure Exposed N/A -Texture (Nahomy-wound Skin Appearance) Assessed, Excoriation, Friable, Scarring -Moisture (Nahomy-wound Skin Appearance Assessed, ) Maceration -Color (Nahomy-wound Skin Appearance) Assessed -Temperature (Nahomy-wound Skin No Abnormality Appearance) (Pt Warm) -Tenderness on Palpation (Nahomy-wound No Skin Appearance) -Ulcer Cleansing Wound Cleanser -Foul Odor after Cleansing No -Anesthetic Used 5% Lidocaine Gel [Edema Assessment] -Lower Limb Edema Present Yes -Left Calf (cm) 43.2 -Left Ankle (cm) 26 Musculoskeletal: No Muscle Wasting Neurological: Cranial nerves II-XII grossly intact, Neuro grossly intact Psych/Mental Status: Normal Affect, Appropriate, Alert and oriented to time, place, person, mood and affect Debridement Note Laterality: Left - Calf Type of Debridement: Excisional debridement Anesthesia Used: 5% Lidocaine Gel Depth: Down to and including healthy tissue, in the subcutaneous layer Percentage of wound debrided: 100 Instrument Used: 7mm curette Tissue Removed: Bioburden and nonviable tissue Severity: Fat Layer Exposed Amount of bleeding with debridement: Mild Bleeding Controlled with: Compression and gauze Patient tolerated procedure well Assessment/Plan Active Problems Chronic venous hypertension with inflammation involving left side (Chronic) Left leg swelling (Chronic) Varicose veins with ulcer and inflammation (Chronic) Leg edema, left (Chronic) History of DVT (deep vein thrombosis) (Chronic) left lower ext Chronic venous insufficiency (Chronic) Lymphedema of left leg (Chronic) 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 She has a large irregular ulceration on the left lower extremity which is related to her venous disease. The patient has demonstrated slow but progressive improvement. We are to continue leg elevation, avoidance of idle standing and sitting, compression by means of SurePress, active lifestyle, weight control measures,etc. She is to continue to take a well-balanced, nutritious diet. We are to continue with the use of Silvadene topically. This will be applied topically on a daily basis. Plan: As above. The patient will return in 2 weeks for reevaluation. We are to continue Silvadene topically. Compression will be continued by means of SurePress which will be applied daily. Current measures include leg elevation, avoidance of idle standing and sitting, activity as tolerated, weight control, and compression by means of SurePress, applied by the patient on a daily basis. She is to continue with the use of XtraSorb for moisture control. The ulceration continues to be exudative, and the patient has been encouraged to enhance the amount of time spent elevating her lower extremity, to help minimize the drainage. Patient is to continue the use of Vasculera orally on a daily basis. Nutritional optimization has been recommended. The indicates that the patient is largely noncompliant with leg elevation. She spends long hours each day in an idle sitting position. Patient weight is 160 pounds. Patient is 5 feet 9 inches tall. BMI is 23.6. BMI is reasonable. The patient is not a smoker. Influenza vaccine was not administered.
[2019-06-28 13:08] VITALS: BP 156/74; PULSE 74; RESP 18; TEMP 36.6
--- NOTE | 2019-06-28 13:27 | HP.PCM_ITS ---
(1) Chronic venous hypertension with inflammation involving left side Status: Chronic Current Visit: Yes Code(s): I87.322 - Chronic venous hypertension (idiopathic) with inflammation of left lower extremity (2) Left leg swelling Status: Chronic Current Visit: Yes Code(s): M79.89 - Other specified soft tissue disorders (3) Varicose veins with ulcer and inflammation Status: Chronic Current Visit: Yes Code(s): I83.209 - Varicose veins of unspecified lower extremity with both ulcer of unspecified site and inflammation; L97.909 - Non-pressure chronic ulcer of unspecified part of unspecified lower leg with unspecified severity (4) Leg edema, left Status: Chronic Current Visit: Yes Code(s): R60.0 - Localized edema (5) History of DVT (deep vein thrombosis) Status: Chronic Current Visit: Yes Code(s): Z86.718 - Personal history of other venous thrombosis and embolism Comment: left lower ext (6) Chronic venous insufficiency Status: Chronic Current Visit: Yes (7) Lymphedema of left leg Status: Chronic Current Visit: Yes Code(s): I89.0 - Lymphedema, not elsewhere classified (8) 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 Status: Chronic Current Visit: Yes Code(s): I87.039 - Postthrombotic syndrome with ulcer and inflammation of unspecified lower extremity (9) Calf ulcer Status: Chronic Current Visit: Yes Qualifiers: Laterality: left Non-pressure ulcer stage: with fat layer exposed Qualified Code(s): L97.222 - Non-pressure chronic ulcer of left calf with fat layer exposed Code(s): L97.209 - Non-pressure chronic ulcer of unspecified calf with unspecified severity (10) chronic left lower ext wound Status: Chronic Current Visit: Yes History of Present Illness Date of Service: 06/28/19 Chief Complaint: Chronic venous insufficiency, chronic venous hypertension with inflammation and ulceration, varicose veins with inflammation and ulceration, post phlebitic syndrome with inflammation and ulceration,leg swelling, leg edema, lymphedema, venous stasis ulceration-left lower extremity History of Wound: This is a 79-year-old white female with a long-standing history of chronic venous disease and swelling in her left lower extremity. This has been present for many years. She has a large ulceration located between her left knee and ankle, which is quite large and irregular in shape, and also highly exudative. 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 She has also previously undergone successful endovenous laser ablation of the left great and small saphenous veins. Healing of the patient's left lower extremity ulceration has been slow, but progressive. A number of healing measures have been implemented in the past, without success. We are currently using Silvadene topically and Xtrasorb for absorption of exudate. 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 (Chronic) chronic left lower ext wound (Chronic) Surgical History: appendectomy, hysterectomy Allergies/Adverse Reactions: Allergies Latex, Natural Rubber Allergy (Verified 07/12/13 11:34) Rash Sulfa (Sulfonamide Antibiotics) Allergy (Verified 07/12/13 11:34) Hives trimethoprim Allergy (Verified 07/12/13 11:34) Hives Home Medications: Ambulatory Orders Medication Instructions Recorded Aspirin [Aspirin, Baby] 81 mg PO DAILY@0800 07/12/13 Calcium Carb/Vitamin D [Os-Mo 1 tablet PO DAILY@0800 07/12/13 500MG + D] Clopidogrel Bisulfate [Plavix] 75 mg PO DAILY 07/12/13 Doxepin HCl [Sinequan] 100 mg PO BID 07/12/13 Doxycycline Monohydrate [Monodox] 100 mg PO BID 07/12/13 [place]-3 Fatty Acids/Fish Oil [Fish 1 each PO DAILY 07/12/13 Oil 1,000 mg Softgel] Vitamin B12 500 mg PO DAILY 07/12/13 Vitamin C 500 mg PO DAILY 07/12/13 proMETHazine soln (6.25mg/5mL) 5 ml PO Q4H PRN PRN 07/12/13 [Phenergan Plain] Prednisone [PredniSONE] 200 mg PO DAILY 07/03/14 Valacyclovir HCl [Valacyclovir] 500 mg PO DAILY 07/03/14 Smoking Status: Never smoker Tobacco Use: Non-smoker Review of Systems Constitutional: Denies: Chills, Fever, Weight Change Eyes: Denies: Pain, Vision Change HEENT: Denies: Difficulty Hearing, Difficulty Swallowing, Sinus Congestion Cardiovascular: Denies: Chest Pain, Palpitations Respiratory: Denies: Cough, Shortness of Breath Gastrointestinal: Denies: Diarrhea, Nausea, Vomiting Genitourinary: Denies: Dysuria, Hematuria Endocrine: Denies: Heat/ Cold Intolerance, Polydipsia, Polyuria Hematologic/ Lymphatic: Denies: Easy Bruising, Easy Bleeding - Physical Exam Vital Signs Temp Pulse Resp BP 97.8 F 74 18 156/74 H 06/28/19 13:08 06/28/19 13:08 06/28/19 13:08 06/28/19 13:08 General: Alert, Oriented x3, Cooperative, No apparent distress, Well developed, Well nourished HEENT: Atraumatic, PERRLA, EOMI, Normocephalic Oral: Moist Mucosa Neck: No JVD Lungs: Normal air movement Abdomen: Non-Distended Extremities: No clubbing, No cyanosis, No Calf Tenderness, - - Edema persists in the patient's left lower extremity, most notable on the dorsum of the left foot. The wound persists on the left calf as well. It is highly irregular in shape. There are multiple skin bridges and areas of epithelialization. Dimensions are documented elsewhere. There is no sign of infection or cellulitis. There is a moderate amount of bioburden and nonviable tissue present. Skin: No rashes Wound Measurements and Assessment WC - Nurse 1 - General Ulcer Measurement Start: 06/14/19 11:57 Freq: Status: Active Protocol: Activity Type Activity Date Activity User E-Sign Co-Sign Detail Recorded Client Recorded Date Recorded By Document 06/28/19 13:08 MW [id number] 06/28/19 13:10 MW 06/28/19 13:08 Wound Center Nurse 1 [Ulcer Assessment] #5 LLE- Circumfrential -Current Size (cm) - Length 12.5 -Current Size (cm) - Width 24.0 -Current Size (cm) - Depth 0.2 -Total Square Cm 300.00 -Photo Taken No -Epithelialization None Present -Tunneling No -Undermining/Tunneling No -Circular Undermining No -Exudate Amt Large -Exudate Type Yellow/Green -Wound Margin Flat & Intact -Granulation Amt Small (1-33%) -Granulation Quality Pale -Slough/Fibrin Yes -Necrosis Amt Large (67-100%) -Necrotic Tissue Type Adherent Slough -Structure Exposed N/A -Texture (Nahomy-wound Skin Appearance) Assessed, Localized Edema ,Scarring -Moisture (Nahomy-wound Skin Appearance No Abnormality, ) Assessed -Color (Nahomy-wound Skin Appearance) Assessed, Hemosiderin Staining -Temperature (Nahomy-wound Skin No Abnormality Appearance) (Pt Warm) -Tenderness on Palpation (Nahomy-wound No Skin Appearance) -Ulcer Cleansing soap and water -Foul Odor after Cleansing No -Anesthetic Used 4% Lidocaine Solution [Edema Assessment] -Lower Limb Edema Present Yes -Left Calf (cm) 40.0 -Left Ankle (cm) 25.5 WC - Nurse 2 - General Ulcer CM Notes Start: 06/14/19 11:57 Freq: Status: Active Protocol: Activity Type Activity Date Activity User E-Sign Co-Sign Detail Recorded Client Recorded Date Recorded By Document 06/28/19 13:13 MW [id number] 06/28/19 13:18 MW 06/28/19 13:13 Wound Center Nurse 2 [Procedure/Treatment] #5 LLE- Circumfrential -Time 13:15 -Correct Patient Yes -Correct Side, Site, Position Yes -Correct Procedure Yes -Procedure Performed Yes -Type of Procedure Debridement -Clinical Debridement Subcutaneous -Post Debridement Size (cm) - Length 12.5 -Post Debridement Size (cm) - Width 24.0 -Post Debridement Size (cm) - Depth 0.2 -Total Square Cm 300.00 -Wound/Ulcer Outcome Not Healed -Ulcer Cleansing Rinsed/ Irrigated with Saline -Foul Odor after Cleansing No -Bioengineered Tissue No -Bleeding Controlled with Pressure -Offloading No -Treatment Response Procedure Tolerated Well [See Physician Procedure note for Specifics] Pain Scale: 0-10 Numeric [Pain] -Is Patient Pain Free? Yes Neurological: Cranial nerves II-XII grossly intact, Neuro grossly intact Psych/Mental Status: Normal Affect, Appropriate, Alert and oriented to time, place, person, mood and affect Debridement Note Post-Debridement Measurements/Treatment WC - Nurse 2 - General Ulcer CM Notes Start: 06/14/19 11:57 Freq: Status: Active Protocol: Activity Type Activity Date Activity User E-Sign Co-Sign Detail Recorded Client Recorded Date Recorded By Document 06/28/19 13:13 [id number] 06/28/19 13:18 MW 06/28/19 13:13 Wound Center Nurse 2 #5 LLE- Circumfrential -Time 13:15 -Correct Patient Yes -Correct Side, Site, Position Yes -Correct Procedure Yes -Procedure Performed Yes -Type of Procedure Debridement -Clinical Debridement Subcutaneous -Post Debridement Size (cm) - Length 12.5 -Post Debridement Size (cm) - Width 24.0 -Post Debridement Size (cm) - Depth 0.2 -Total Square Cm 300.00 -Wound/Ulcer Outcome Not Healed -Ulcer Cleansing Rinsed/ Irrigated with Saline -Foul Odor after Cleansing No -Bioengineered Tissue No -Bleeding Controlled with Pressure -Offloading No -Treatment Response Procedure Tolerated Well Pain Scale: 0-10 Numeric Is Patient Pain Free? Yes Laterality: Left - Calf Type of Debridement: Excisional debridement Anesthesia Used: 5% Lidocaine Gel Depth: Down to and including healthy tissue, in the subcutaneous layer Percentage of wound debrided: 100 Instrument Used: 7mm curette Tissue Removed: Bioburden and nonviable tissue Severity: Fat Layer Exposed Amount of bleeding with debridement: Mild Bleeding Controlled with: Compression and gauze Patient tolerated procedure well Assessment/Plan Active Problems Chronic venous hypertension with inflammation involving left side (Chronic) Left leg swelling (Chronic) Varicose veins with ulcer and inflammation (Chronic) Leg edema, left (Chronic) History of DVT (deep vein thrombosis) (Chronic) left lower ext Chronic venous insufficiency (Chronic) Lymphedema of left leg (Chronic) 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 She has a large irregular ulceration on the left lower extremity which is related to her venous disease. The patient has demonstrated slow but progressive improvement. We are to continue leg elevation, avoidance of idle standing and sitting, compression by means of SurePress, active lifestyle, weight control measures,etc. She is to continue to take a well-balanced, nutritious diet. We are to continue with the use of Silvadene topically. This will be applied topically on a daily basis. Plan: As above. The patient will return in 2 weeks for reevaluation. We are to continue Silvadene topically. Compression will be continued by means of SurePress which will be applied daily. Current measures include leg elevation, avoidance of idle standing and sitting, activity as tolerated, weight control, and compression by means of SurePress, applied by the patient on a daily basis. She is to continue with the use of XtraSorb for moisture control. The ulceration continues to be exudative, and the patient has been encouraged to enhance the amount of time spent elevating her lower extremity, to help minimize the drainage. Patient is to continue the use of Vasculera orally on a daily basis. Nutritional optimization has been recommended. The indicates that the patient is largely noncompliant with leg elevation. She spends long hours each day in an idle sitting position. Patient weight is 160 pounds. Patient is 5 feet 9 inches tall. BMI is 23.6. BMI is reasonable. The patient is not a smoker. Influenza vaccine was not administered.
== END 2019-07-11 23:59 ==
LOC: WC 12:00
PROVIDERS: Visit Provider Surgery
DX: I83.222 Varicose veins of left lower extremity with both ulcer of calf and inflammation (principal); R60.0 Localized edema; L97.222 Non-pressure chronic ulcer of left calf with fat layer exposed; I89.0 Lymphedema, not elsewhere classified; M79.89 Other specified soft tissue disorders; Z86.718 Personal history of other venous thrombosis and embolism
CPT/HCPCS: 11042; 11045

== ENCOUNTER 2019-08-09 12:00 | Outpatient (RCR) | payer MEDICARE, BC, SELFPAY ==
[2019-07-12 00:31] VITALS: BP 156/74; PULSE 74; RESP 18; TEMP 36.6
[2019-07-12 12:20] VITALS: BP 153/78; PULSE 70; RESP 16; TEMP 36.2
--- NOTE | 2019-07-12 12:58 | HP.PCM_ITS ---
(1) Chronic venous hypertension with inflammation involving left side Status: Chronic Current Visit: Yes Code(s): I87.322 - Chronic venous hypertension (idiopathic) with inflammation of left lower extremity (2) Left leg swelling Status: Chronic Current Visit: Yes Code(s): M79.89 - Other specified soft tissue disorders (3) Varicose veins with ulcer and inflammation Status: Chronic Current Visit: Yes Code(s): I83.209 - Varicose veins of unspecified lower extremity with both ulcer of unspecified site and inflammation; L97.909 - Non-pressure chronic ulcer of unspecified part of unspecified lower leg with unspecified severity (4) Leg edema, left Status: Chronic Current Visit: Yes Code(s): R60.0 - Localized edema (5) May-Thurner syndrome Status: Resolved Current Visit: No Code(s): I87.1 - Compression of vein (6) History of DVT (deep vein thrombosis) Status: Chronic Current Visit: No Code(s): Z86.718 - Personal history of other venous thrombosis and embolism Comment: left lower ext (7) dermatomycosis leg Status: Resolved Current Visit: No (8) Cellulitis, leg Status: Resolved Current Visit: No Qualifiers: Code(s): L03.119 - Cellulitis of unspecified part of limb (9) Erythema of skin Status: Resolved Current Visit: No Code(s): L53.9 - Erythematous condition, unspecified (10) Cellulitis of leg Status: Resolved Current Visit: No Qualifiers: Code(s): L03.119 - Cellulitis of unspecified part of limb (11) Cellulitis Status: Resolved Current Visit: No Code(s): L03.90 - Cellulitis, unspecified (12) Chronic venous insufficiency Status: Chronic Current Visit: Yes (13) Lymphedema of left leg Status: Chronic Current Visit: Yes Code(s): I89.0 - Lymphedema, not elsewhere classified (14) 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 Status: Chronic Current Visit: Yes Code(s): I87.039 - Postthrombotic syndrome with ulcer and inflammation of unspecified lower extremity (15) Calf ulcer Status: Chronic Current Visit: Yes Qualifiers: Laterality: left Non-pressure ulcer stage: with fat layer exposed Qualified Code(s): L97.222 - Non-pressure chronic ulcer of left calf with fat layer exposed Code(s): L97.209 - Non-pressure chronic ulcer of unspecified calf with unspecified severity (16) chronic left lower ext wound Status: Chronic Current Visit: Yes History of Present Illness Date of Service: 07/12/19 Chief Complaint: Chronic venous insufficiency, chronic venous hypertension with inflammation and ulceration, varicose veins with inflammation and ulceration, post phlebitic syndrome with inflammation and ulceration,leg swelling, leg edema, lymphedema, venous stasis ulceration-left lower extremity History of Wound: This is a 79-year-old white female with a long-standing history of chronic venous disease and swelling in her left lower extremity. This has been present for many years. She has a large ulceration located between her left knee and ankle, which is quite large and irregular in shape, and also highly exudative. 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 She has also previously undergone successful endovenous laser ablation of the left great and small saphenous veins. Healing of the patient's left lower extremity ulceration has been slow, but progressive. A number of healing measures have been implemented in the past, without success. We are currently using Silvadene topically and Xtrasorb for absorption of exudate. 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 (Chronic) chronic left lower ext wound (Chronic) Surgical History: appendectomy, hysterectomy Allergies/Adverse Reactions: Allergies Latex, Natural Rubber Allergy (Verified 07/12/13 11:34) Rash Sulfa (Sulfonamide Antibiotics) Allergy (Verified 07/12/13 11:34) Hives trimethoprim Allergy (Verified 07/12/13 11:34) Hives Home Medications: Ambulatory Orders Medication Instructions Recorded Aspirin [Aspirin, Baby] 81 mg PO DAILY@0800 07/12/13 Calcium Carb/Vitamin D [Os-Mo 1 tablet PO DAILY@0800 07/12/13 500MG + D] Clopidogrel Bisulfate [Plavix] 75 mg PO DAILY 07/12/13 Doxepin HCl [Sinequan] 100 mg PO BID 07/12/13 Doxycycline Monohydrate [Monodox] 100 mg PO BID 07/12/13 [place]-3 Fatty Acids/Fish Oil [Fish 1 each PO DAILY 07/12/13 Oil 1,000 mg Softgel] Vitamin B12 500 mg PO DAILY 07/12/13 Vitamin C 500 mg PO DAILY 07/12/13 proMETHazine soln (6.25mg/5mL) 5 ml PO Q4H PRN PRN 07/12/13 [Phenergan Plain] Prednisone [PredniSONE] 200 mg PO DAILY 07/03/14 Valacyclovir HCl [Valacyclovir] 500 mg PO DAILY 07/03/14 Smoking Status: Never smoker Tobacco Use: Non-smoker Review of Systems Constitutional: Denies: Chills, Fever, Weight Change Eyes: Denies: Pain, Vision Change HEENT: Denies: Difficulty Hearing, Difficulty Swallowing, Sinus Congestion Cardiovascular: Denies: Chest Pain, Palpitations Respiratory: Denies: Cough, Shortness of Breath Gastrointestinal: Denies: Diarrhea, Nausea, Vomiting Genitourinary: Denies: Dysuria, Hematuria Endocrine: Denies: Heat/ Cold Intolerance, Polydipsia, Polyuria Hematologic/ Lymphatic: Denies: Easy Bruising, Easy Bleeding - Physical Exam Vital Signs Temp Pulse Resp BP 97.1 F L 70 16 153/78 H 07/12/19 12:20 07/12/19 12:20 07/12/19 12:20 07/12/19 12:20 General: Alert, Oriented x3, Cooperative, No apparent distress, Well developed, Well nourished HEENT: Atraumatic, PERRLA, EOMI, Normocephalic Oral: Moist Mucosa Neck: No JVD Lungs: Normal air movement Abdomen: Non-Distended Extremities: No clubbing, No cyanosis, No Calf Tenderness, - - Swelling and edema persist in the left lower extremity. It is most notable on the dorsum of the left foot. This has been chronic in nature. The long-standing, chronic ulceration on the left calf persists. There are increasing areas of epithelialization. There is a moderate amount of bioburden and nonviable tissue present. There is no sign of infection or cellulitis. Ulcer dimensions are documented elsewhere. The ulceration is highly irregular in shape. Skin: No rashes Wound Measurements and Assessment WC - Nurse 1 - General Ulcer Measurement Start: 07/12/19 12:20 Freq: Status: Active Protocol: Activity Type Activity Date Activity User E-Sign Co-Sign Detail Recorded Client Recorded Date Recorded By Document 07/12/19 12:20 AN [id number] 07/12/19 12:32 AN 07/12/19 12:20 Wound Center Nurse 1 [Ulcer Assessment] #5 LLE- Circumfrential -Combined with other wound No -Current Size (cm) - Length 11.5 -Current Size (cm) - Width 32.7 -Current Size (cm) - Depth 0.2 -Total Square Cm 376.05 -Photo Taken No -Epithelialization None Present -Tunneling No -Undermining/Tunneling No -Circular Undermining No -Exudate Amt Medium -Exudate Type Serosanguineous -Wound Margin Distinct, Outline Attached -Granulation Amt Small (1-33%) -Granulation Quality Red -Slough/Fibrin Yes -Necrosis Amt Large (67-100%) -Necrotic Tissue Type Adherent Slough -Texture (Nahomy-wound Skin Appearance) Assessed, Scarring -Moisture (Nahomy-wound Skin Appearance Assessed ) -Color (Nahomy-wound Skin Appearance) Assessed, Erythema -Temperature (Nahomy-wound Skin No Abnormality Appearance) (Pt Warm) -Tenderness on Palpation (Nahomy-wound No Skin Appearance) -Ulcer Cleansing soap and water -Foul Odor after Cleansing No -Anesthetic Used 4% Lidocaine Solution [Edema Assessment] -Lower Limb Edema Present Yes -Left Calf (cm) 42.5 -Left Ankle (cm) 25 - Nurse 2 - General Ulcer CM Notes Start: 07/12/19 12:20 Freq: Status: Active Protocol: Activity Type Activity Date Activity User E-Sign Co-Sign Detail Recorded Client Recorded Date Recorded By Document 07/12/19 12:38 AN [email or web address] 07/12/19 12:45 AN 07/12/19 12:38 Wound Center Nurse 2 [Procedure/Treatment] #5 LLE- Circumfrential -Time 12:38 -Correct Patient Yes -Correct Side, Site, Position Yes -Correct Procedure Yes -Procedure Performed Yes -Type of Procedure Debridement -Clinical Debridement Subcutaneous -Post Debridement Size (cm) - Length 11.6 -Post Debridement Size (cm) - Width 32.8 -Post Debridement Size (cm) - Depth 0.2 -Total Square Cm 380.48 -Wound/Ulcer Outcome Not Healed -Ulcer Cleansing Rinsed/ Irrigated with Saline -Foul Odor after Cleansing No -Bioengineered Tissue No -Bleeding Controlled with Pressure -Offloading Yes -Treatment Response Procedure Tolerated Well [See Physician Procedure note for Specifics] Pain Scale: 0-10 Numeric [Pain] -Is Patient Pain Free? Yes Musculoskeletal: No Muscle Wasting Neurological: Cranial nerves II-XII grossly intact, Neuro grossly intact Psych/Mental Status: Normal Affect, Appropriate, Alert and oriented to time, hue ce, person, mood and affect Debridement Note Post-Debridement Measurements/Treatment WC - Nurse 2 - General Ulcer CM Notes Start: 07/12/19 12:20 Freq: Status: Active Protocol: Activity Type Activity Date Activity User E-Sign Co-Sign Detail Recorded Client Recorded Date Recorded By Document 07/12/19 12:38 AN [id number] 07/12/19 12:45 AN 07/12/19 12:38 Wound Center Nurse 2 #5 LLE- Circumfrential -Time 12:38 -Correct Patient Yes -Correct Side, Site, Position Yes -Correct Procedure Yes -Procedure Performed Yes -Type of Procedure Debridement -Clinical Debridement Subcutaneous -Post Debridement Size (cm) - Length 11.6 -Post Debridement Size (cm) - Width 32.8 -Post Debridement Size (cm) - Depth 0.2 -Total Square Cm 380.48 -Wound/Ulcer Outcome Not Healed -Ulcer Cleansing Rinsed/ Irrigated with Saline -Foul Odor after Cleansing No -Bioengineered Tissue No -Bleeding Controlled with Pressure -Offloading Yes -Treatment Response Procedure Tolerated Well Pain Scale: 0-10 Numeric Is Patient Pain Free? Yes Laterality: Left - Cath Type of Debridement: Excisional debridement Anesthesia Used: 5% Lidocaine Gel Depth: Down to and including healthy tissue, in the subcutaneous layer Percentage of wound debrided: 100 Instrument Used: 7mm curette Tissue Removed: Bioburden and nonviable tissue Severity: Fat Layer Exposed Amount of bleeding with debridement: Mild Bleeding Controlled with: Compression and gauze Patient tolerated procedure well Assessment/Plan Active Problems Chronic venous hypertension with inflammation involving left side (Chronic) Left leg swelling (Chronic) Varicose veins with ulcer and inflammation (Chronic) Leg edema, left (Chronic) Chronic venous insufficiency (Chronic) Lymphedema of left leg (Chronic) 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 She has a large irregular ulceration on the left lower extremity which is related to her venous disease. The patient has demonstrated slow but progressive improvement. We are to continue leg elevation, avoidance of idle standing and sitting, compression by means of SurePress, active lifestyle, weight control measures,etc. She is to continue to take a well-balanced, nutritious diet. We are to continue with the use of Silvadene topically. This will be applied topically on a daily basis. Plan: As above. The patient will return in 2 weeks for reevaluation. We are to continue Silvadene topically. Compression will be continued by means of SurePress which will be applied daily. Current measures include leg elevation, avoidance of idle standing and sitting, activity as tolerated, weight control, and compression by means of SurePress, applied by the patient on a daily basis. She is to continue with the use of XtraSorb for moisture control. The ulceration continues to be exudative, and the patient has been encouraged to enhance the amount of time spent elevating her lower extremity, to help minimize the drainage. Patient is to continue the use of Vasculera orally on a daily basis. Nutritional optimization has been recommended. The indicates that the patient is largely noncompliant with leg elevation. She spends long hours each day in an idle sitting position. Patient weight is 160 pounds. Patient is 5 feet 9 inches tall. BMI is 23.6. BMI is reasonable. The patient is not a smoker. Influenza vaccine was not administered.
[2019-07-26 11:57] VITALS: BP 138/81; PULSE 73; RESP 18; TEMP 36.6
--- NOTE | 2019-07-26 12:52 | PCM.WC.HP ---
(1) Chronic venous hypertension with inflammation involving left side Status: Chronic Current Visit: Yes Code(s): I87.322 - Chronic venous hypertension (idiopathic) with inflammation of left lower extremity (2) Left leg swelling Status: Chronic Current Visit: Yes Code(s): M79.89 - Other specified soft tissue disorders (3) Varicose veins with ulcer and inflammation Status: Chronic Current Visit: Yes Code(s): I83.209 - Varicose veins of unspecified lower extremity with both ulcer of unspecified site and inflammation; L97.909 - Non-pressure chronic ulcer of unspecified part of unspecified lower leg with unspecified severity (4) Leg edema, left Status: Chronic Current Visit: Yes Code(s): R60.0 - Localized edema (5) History of DVT (deep vein thrombosis) Status: Chronic Current Visit: No Code(s): Z86.718 - Personal history of other venous thrombosis and embolism Comment: left lower ext (6) Chronic venous insufficiency Status: Chronic Current Visit: Yes (7) Lymphedema of left leg Status: Chronic Current Visit: Yes Code(s): I89.0 - Lymphedema, not elsewhere classified (8) 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 Status: Chronic Current Visit: Yes Code(s): I87.039 - Postthrombotic syndrome with ulcer and inflammation of unspecified lower extremity (9) Calf ulcer Status: Chronic Current Visit: Yes Qualifiers: Laterality: left Non-pressure ulcer stage: with fat layer exposed Qualified Code(s): L97.222 - Non-pressure chronic ulcer of left calf with fat layer exposed Code(s): L97.209 - Non-pressure chronic ulcer of unspecified calf with unspecified severity (10) chronic left lower ext wound Status: Chronic Current Visit: Yes History of Present Illness Date of Service: 07/26/19 Chief Complaint: Chronic venous insufficiency, chronic venous hypertension with inflammation and ulceration, varicose veins with inflammation and ulceration, post phlebitic syndrome with inflammation and ulceration,leg swelling, leg edema, lymphedema, venous stasis ulceration-left lower extremity History of Wound: This is a 79-year-old white female with a long-standing history of chronic venous disease and swelling in her left lower extremity. This has been present for many years. She has a large ulceration located between her left knee and ankle, which is quite large and irregular in shape, and also highly exudative. 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 She has also previously undergone successful endovenous laser ablation of the left great and small saphenous veins. Healing of the patient's left lower extremity ulceration has been slow, but progressive. A number of healing measures have been implemented in the past, without success. We are currently using Silvadene topically and Xtrasorb for absorption of exudate. 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 (Chronic) chronic left lower ext wound (Chronic) Surgical History: appendectomy, hysterectomy Allergies/Adverse Reactions: Allergies Latex, Natural Rubber Allergy (Verified 07/12/13 11:34) Rash Sulfa (Sulfonamide Antibiotics) Allergy (Verified 07/12/13 11:34) Hives trimethoprim Allergy (Verified 07/12/13 11:34) Hives Home Medications: Ambulatory Orders Medication Instructions Recorded Aspirin [Aspirin, Baby] 81 mg PO DAILY@0800 07/12/13 Calcium Carb/Vitamin D [Os-Mo 1 tablet PO DAILY@0800 07/12/13 500MG + D] Clopidogrel Bisulfate [Plavix] 75 mg PO DAILY 07/12/13 Doxepin HCl [Sinequan] 100 mg PO BID 07/12/13 Doxycycline Monohydrate [Monodox] 100 mg PO BID 07/12/13 [place]-3 Fatty Acids/Fish Oil [Fish 1 each PO DAILY 07/12/13 Oil 1,000 mg Softgel] Vitamin B12 500 mg PO DAILY 07/12/13 Vitamin C 500 mg PO DAILY 07/12/13 proMETHazine soln (6.25mg/5mL) 5 ml PO Q4H PRN PRN 07/12/13 [Phenergan Plain] Prednisone [PredniSONE] 200 mg PO DAILY 07/03/14 Valacyclovir HCl [Valacyclovir] 500 mg PO DAILY 07/03/14 Smoking Status: Never smoker Tobacco Use: Non-smoker Review of Systems Constitutional: Denies: Chills, Fever, Weight Change Eyes: Denies: Pain, Vision Change HEENT: Denies: Difficulty Hearing, Difficulty Swallowing, Sinus Congestion Cardiovascular: Denies: Chest Pain, Palpitations Respiratory: Denies: Cough, Shortness of Breath Gastrointestinal: Denies: Diarrhea, Nausea, Vomiting Genitourinary: Denies: Dysuria, Hematuria Endocrine: Denies: Heat/ Cold Intolerance, Polydipsia, Polyuria Hematologic/ Lymphatic: Denies: Easy Bruising, Easy Bleeding - Physical Exam Vital Signs Temp Pulse Resp BP 98 F 73 18 138/81 H 07/26/19 11:57 07/26/19 11:57 07/26/19 11:57 07/26/19 11:57 General: Alert, Oriented x3, Cooperative, No apparent distress, Well developed, Well nourished HEENT: Atraumatic, PERRLA, EOMI, Normocephalic Oral: Moist Mucosa Neck: No JVD Lungs: Normal air movement Abdomen: Non-Distended Extremities: No clubbing, No cyanosis, No Calf Tenderness, - - Swelling, edema, and lymphedema persist in the patient's left lower extremity. It is chronic in nature. It is most notable on the dorsum of the left foot. The ulceration persists on the left calf. It is highly irregular in shape. There are multiple skin bridges and areas of epithelialization. There is a moderate amount of bioburden and nonviable tissue. There is no sign of infection or cellulitis. Skin: No rashes Wound Measurements and Assessment WC - Nurse 1 - General Ulcer Measurement Start: 07/12/19 12:20 Freq: Status: Active Protocol: Activity Type Activity Date Activity User E-Sign Co-Sign Detail Recorded Client Recorded Date Recorded By Document 07/26/19 11:57 DL [id number] 07/26/19 12:06 DL 07/26/19 11:57 Wound Center Nurse 1 [Ulcer Assessment] #5 LLE- Circumfrential -Current Size (cm) - Length 11.5 -Current Size (cm) - Width 18.0 -Current Size (cm) - Depth 0.1 -Total Square Cm 207.00 -Photo Taken No -Epithelialization Medium 34-66% -Classification - Thickness Full Thickness with Exposed Support Structure -Exudate Amt Medium -Exudate Type Serosanguineous -Wound Margin Flat & Intact -Granulation Amt Medium (34-66%) -Granulation Quality Red -Slough/Fibrin Yes -Necrosis Amt Medium (34-66%) -Necrotic Tissue Type Adherent Slough -Structure Exposed Fat Layer Exposed -Texture (Nahomy-wound Skin Appearance) Assessed, Localized Edema ,Scarring -Moisture (Nahomy-wound Skin Appearance Assessed, ) Maceration -Color (Nahomy-wound Skin Appearance) Assessed, Erythema -Temperature (Nahomy-wound Skin No Abnormality Appearance) (Pt Warm) -Tenderness on Palpation (Nahomy-wound No Skin Appearance) -Ulcer Cleansing Wound Cleanser -Foul Odor after Cleansing No -Anesthetic Used 4% Lidocaine Solution WC - Nurse 2 - General Ulcer CM Notes Start: 07/12/19 12:20 Freq: Status: Active Protocol: Activity Type Activity Date Activity User E-Sign Co-Sign Detail Recorded Client Recorded Date Recorded By Document 07/26/19 12:27 MW [id number] 07/26/19 12:29 MW 07/26/19 12:27 Wound Center Nurse 2 [Procedure/Treatment] -Time 12:27 -Correct Patient Yes -Correct Side, Site, Position Yes -Correct Procedure Yes -Procedure Performed Yes -Type of Procedure Debridement -Clinical Debridement Subcutaneous -Post Debridement Size (cm) - Length 11.5 -Post Debridement Size (cm) - Width 18.1 -Post Debridement Size (cm) - Depth 0.1 -Total Square Cm 208.15 -Wound/Ulcer Outcome Not Healed -Ulcer Cleansing Rinsed/ Irrigated with Saline -Foul Odor after Cleansing No -Bioengineered Tissue No -Bleeding Controlled with Pressure -Offloading No -Treatment Response Procedure Tolerated Well [See Physician Procedure note for Specifics] Pain Scale: 0-10 Numeric [Pain] -Is Patient Pain Free? Yes Musculoskeletal: No Muscle Wasting Neurological: Cranial nerves II-XII grossly intact, Neuro grossly intact Psych/Mental Status: Normal Affect, Appropriate, Alert and oriented to time, place, person, mood and affect Debridement Note Post-Debridement Measurements/Treatment - Nurse 2 - General Ulcer CM Notes Start: 07/12/19 12:20 Freq: Status: Active Protocol: Activity Type Activity Date Activity User E-Sign Co-Sign Detail Recorded Client Recorded Date Recorded By Document 07/12/19 12:38 AN [id number] 07/12/19 12:45 AN Document 07/26/19 12:27 MW [id number] 07/26/19 12:29 MW 07/12/19 07/26/19 12:38 12:27 Wound Center Nurse 2 #5 LLE- Circumfrential -Time 12:38 12:27 -Correct Patient Yes Yes -Correct Side, Site, Position Yes Yes -Correct Procedure Yes Yes -Procedure Performed Yes Yes -Type of Procedure Debridement Debridement -Clinical Debridement Subcutaneous Subcutaneous -Post Debridement Size (cm) - Length 11.6 11.5 -Post Debridement Size (cm) - Width 32.8 18.1 -Post Debridement Size (cm) - Depth 0.2 0.1 -Total Square Cm 380.48 208.15 -Wound/Ulcer Outcome Not Healed Not Healed -Ulcer Cleansing Rinsed/ Rinsed/ Irrigated with Irrigated with Saline Saline -Foul Odor after Cleansing No No -Bioengineered Tissue No No -Bleeding Controlled with Pressure Pressure -Offloading Yes No -Treatment Response Procedure Procedure Tolerated Well Tolerated Well Pain Scale: 0-10 Numeric Is Patient Pain Free? Yes Yes Laterality: Left - Calf Type of Debridement: Excisional debridement Anesthesia Used: 5% Lidocaine Gel Depth: Down to and including healthy tissue, in the subcutaneous layer Percentage of wound debrided: 100 Instrument Used: 7mm curette Tissue Removed: Bioburden and nonviable tissue Severity: Fat Layer Exposed Amount of bleeding with debridement: Mild Bleeding Controlled with: Compression and gauze Patient tolerated procedure well Assessment/Plan Active Problems Chronic venous hypertension with inflammation involving left side (Chronic) Left leg swelling (Chronic) Varicose veins with ulcer and inflammation (Chronic) Leg edema, left (Chronic) Chronic venous insufficiency (Chronic) Lymphedema of left leg (Chronic) 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 She has a large irregular ulceration on the left lower extremity which is related to her venous disease. The patient has demonstrated slow but progressive improvement. We are to continue leg elevation, avoidance of idle standing and sitting, compression by means of SurePress, active lifestyle, weight control measures,etc. She is to continue to take a well-balanced, nutritious diet. We are to continue with the use of Silvadene topically. This will be applied topically on a daily basis. Plan: As above. The patient will return in 2 weeks for reevaluation. We are to continue Silvadene topically. Compression will be continued by means of SurePress which will be applied daily. Current measures include leg elevation, avoidance of idle standing and sitting, activity as tolerated, weight control, and compression by means of SurePress, applied by the patient on a daily basis. She is to continue with the use of XtraSorb for moisture control. The ulceration continues to be exudative, and the patient has been encouraged to enhance the amount of time spent elevating her lower extremity, to help minimize the drainage. Patient is to continue the use of Vasculera orally on a daily basis. Nutritional optimization has been recommended. The indicates that the patient is largely noncompliant with leg elevation. She spends long hours each day in an idle sitting position. Patient weight is 160 pounds. Patient is 5 feet 9 inches tall. BMI is 23.6. BMI is reasonable. The patient is not a smoker. Influenza vaccine was not administered.
--- NOTE | 2019-08-09 12:23 | HP.PCM_ITS ---
(1) Chronic venous hypertension with inflammation involving left side Status: Chronic Current Visit: Yes Code(s): I87.322 - Chronic venous hypertension (idiopathic) with inflammation of left lower extremity (2) Left leg swelling Status: Chronic Current Visit: Yes Code(s): M79.89 - Other specified soft tissue disorders (3) Varicose veins with ulcer and inflammation Status: Chronic Current Visit: Yes Code(s): I83.209 - Varicose veins of unspecified lower extremity with both ulcer of unspecified site and inflammation; L97.909 - Non-pressure chronic ulcer of unspecified part of unspecified lower leg with unspecified severity (4) Leg edema, left Status: Chronic Current Visit: Yes Code(s): R60.0 - Localized edema (5) History of DVT (deep vein thrombosis) Status: Chronic Current Visit: No Code(s): Z86.718 - Personal history of other venous thrombosis and embolism Comment: left lower ext (6) Chronic venous insufficiency Status: Chronic Current Visit: Yes (7) Lymphedema of left leg Status: Chronic Current Visit: Yes Code(s): I89.0 - Lymphedema, not elsewhere classified (8) 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 Status: Chronic Current Visit: Yes Code(s): I87.039 - Postthrombotic syndrome with ulcer and inflammation of unspecified lower extremity (9) Calf ulcer Status: Chronic Current Visit: Yes Qualifiers: Laterality: left Non-pressure ulcer stage: with fat layer exposed Qualified Code(s): L97.222 - Non-pressure chronic ulcer of left calf with fat layer exposed Code(s): L97.209 - Non-pressure chronic ulcer of unspecified calf with unspecified severity (10) chronic left lower ext wound Status: Chronic Current Visit: Yes History of Present Illness Date of Service: 08/09/19 Chief Complaint: Chronic venous insufficiency, chronic venous hypertension with inflammation and ulceration, varicose veins with inflammation and ulceration, post phlebitic syndrome with inflammation and ulceration,leg swelling, leg edema, lymphedema, venous stasis ulceration-left lower extremity History of Wound: This is a 79-year-old white female with a long-standing history of chronic venous disease and swelling in her left lower extremity. This has been present for many years. She has a large ulceration located between her left knee and ankle, which is quite large and irregular in shape, and also highly exudative. 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 She has also previously undergone successful endovenous laser ablation of the left great and small saphenous veins. Healing of the patient's left lower extremity ulceration has been slow, but progressive. A number of healing measures have been implemented in the past, without success. We are currently using Silvadene topically and Xtrasorb for absorption of exudate. 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 (Chronic) chronic left lower ext wound (Chronic) Surgical History: appendectomy, hysterectomy Allergies/Adverse Reactions: Allergies Latex, Natural Rubber Allergy (Verified 07/12/13 11:34) Rash Sulfa (Sulfonamide Antibiotics) Allergy (Verified 07/12/13 11:34) Hives trimethoprim Allergy (Verified 07/12/13 11:34) Hives Home Medications: Ambulatory Orders Medication Instructions Recorded Aspirin [Aspirin, Baby] 81 mg PO DAILY@0800 07/12/13 Calcium Carb/Vitamin D [Os-Mo 1 tablet PO DAILY@0800 07/12/13 500MG + D] Clopidogrel Bisulfate [Plavix] 75 mg PO DAILY 07/12/13 Doxepin HCl [Sinequan] 100 mg PO BID 07/12/13 Doxycycline Monohydrate [Monodox] 100 mg PO BID 07/12/13 [place]-3 Fatty Acids/Fish Oil [Fish 1 each PO DAILY 07/12/13 Oil 1,000 mg Softgel] Vitamin B12 500 mg PO DAILY 07/12/13 Vitamin C 500 mg PO DAILY 07/12/13 proMETHazine soln (6.25mg/5mL) 5 ml PO Q4H PRN PRN 07/12/13 [Phenergan Plain] Prednisone [PredniSONE] 200 mg PO DAILY 07/03/14 Valacyclovir HCl [Valacyclovir] 500 mg PO DAILY 07/03/14 Smoking Status: Never smoker Tobacco Use: Non-smoker Review of Systems Constitutional: Denies: Chills, Fever, Weight Change Eyes: Denies: Pain, Vision Change HEENT: Denies: Difficulty Hearing, Difficulty Swallowing, Sinus Congestion Cardiovascular: Denies: Chest Pain, Palpitations Respiratory: Denies: Cough, Shortness of Breath Gastrointestinal: Denies: Diarrhea, Nausea, Vomiting Genitourinary: Denies: Dysuria, Hematuria Endocrine: Denies: Heat/ Cold Intolerance, Polydipsia, Polyuria Hematologic/ Lymphatic: Denies: Easy Bruising, Easy Bleeding - Physical Exam Vital Signs Temp Pulse Resp BP 98 F 73 18 138/81 H 07/26/19 11:57 07/26/19 11:57 07/26/19 11:57 07/26/19 11:57 General: Alert, Oriented x3, Cooperative, No apparent distress, Well developed, Well nourished HEENT: Atraumatic, PERRLA, EOMI, Normocephalic Oral: Moist Mucosa Neck: No JVD Lungs: Normal air movement Abdomen: Non-Distended Extremities: No clubbing, No cyanosis, No Calf Tenderness, - - Swelling and edema persist on the left lower extremity. It is most notable on the dorsum of the left foot. The ulceration of the left calf persists as well. It appears to be diminishing in size. There are increasing areas of epithelialization. There is a moderate amount of bioburden and nonviable tissue. There is no sign of infection or cellulitis. Ulcer dimensions are documented elsewhere. Skin: No rashes Wound Measurements and Assessment WC - Nurse 2 - General Ulcer CM Notes Start: 07/12/19 12:20 Freq: Status: Active Protocol: Activity Type Activity Date Activity User E-Sign Co-Sign Detail Recorded Client Recorded Date Recorded By Document 08/09/19 12:11 [id number] 08/09/19 12:12 08/09/19 12:11 Wound Center Nurse 2 [Procedure/Treatment] #5 LLE- Circumfrential -Time 12:11 -Correct Patient Yes -Correct Side, Site, Position Yes -Correct Procedure Yes -Procedure Performed Yes -Type of Procedure Debridement -Clinical Debridement Subcutaneous -Post Debridement Size (cm) - Length 11.5 -Post Debridement Size (cm) - Width 18 -Post Debridement Size (cm) - Depth 0.1 -Total Square Cm 207.0 -Wound/Ulcer Outcome Not Healed -Ulcer Cleansing Not Cleansed -Foul Odor after Cleansing No -Bleeding Controlled with NA -Offloading No -Treatment Response Procedure Tolerated Well [See Physician Procedure note for Specifics] Pain Scale: 0-10 Numeric [Pain] -Is Patient Pain Free? Yes Musculoskeletal: No Muscle Wasting Neurological: Cranial nerves II-XII grossly intact, Neuro grossly intact Psych/Mental Status: Normal Affect, Appropriate, Alert and oriented to time, place, person, mood and affect Debridement Note Post-Debridement Measurements/Treatment WC - Nurse 2 - General Ulcer CM Notes Start: 07/12/19 12:20 Freq: Status: Active Protocol: Activity Type Activity Date Activity User E-Sign Co-Sign Detail Recorded Client Recorded Date Recorded By Document 07/12/19 12:38 AN [id number] 07/12/19 12:45 AN Document 07/26/19 12:27 MW [id number] 07/26/19 12:29 MW Document 08/09/19 12:11 CS [id number] 08/09/19 12:12 CS 07/12/19 07/26/19 08/09/19 12:38 12:27 12:11 Wound Center Nurse 2 #5 LLE- Circumfrential -Time 12:38 12:27 12:11 -Correct Patient Yes Yes Yes -Correct Side, Site, Position Yes Yes Yes -Correct Procedure Yes Yes Yes -Procedure Performed Yes Yes Yes -Type of Procedure Debridement Debridement Debridement -Clinical Debridement Subcutaneous Subcutaneous Subcutaneous -Post Debridement Size (cm) - Length 11.6 11.5 11.5 -Post Debridement Size (cm) - Width 32.8 18.1 18 -Post Debridement Size (cm) - Depth 0.2 0.1 0.1 -Total Square Cm 380.48 208.15 207.0 -Wound/Ulcer Outcome Not Healed Not Healed Not Healed -Ulcer Cleansing Rinsed/ Rinsed/ Not Cleansed Irrigated with Irrigated with Saline Saline -Foul Odor after Cleansing No No No -Bioengineered Tissue No No -Bleeding Controlled with Pressure Pressure NA -Offloading Yes No No -Treatment Response Procedure Procedure Procedure Tolerated Well Tolerated Well Tolerated Well Pain Scale: 0-10 Numeric Is Patient Pain Free? Yes Yes Yes Laterality: Right - Calf Type of Debridement: Excisional debridement Anesthesia Used: 5% Lidocaine Gel Depth: Down to and including healthy tissue, in the subcutaneous layer Percentage of wound debrided: 100 Instrument Used: 5mm curette Tissue Removed: Bioburden and nonviable tissue Severity: Fat Layer Exposed Amount of bleeding with debridement: Mild Bleeding Controlled with: Compression and gauze Patient tolerated procedure well Assessment/Plan Active Problems Chronic venous hypertension with inflammation involving left side (Chronic) Left leg swelling (Chronic) Varicose veins with ulcer and inflammation (Chronic) Leg edema, left (Chronic) Chronic venous insufficiency (Chronic) Lymphedema of left leg (Chronic) 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 She has a large irregular ulceration on the left lower extremity which is related to her venous disease. The patient has demonstrated slow but progressive improvement. We are to continue leg elevation, avoidance of idle standing and sitting, compression by means of SurePress, active lifestyle, weight control measures,etc. She is to continue to take a well-balanced, nutritious diet. We are to continue with the use of Silvadene topically. This will be applied topically on a daily basis. Plan: As above. The patient will return in 2 weeks for reevaluation. We are to continue Silvadene topically. Compression will be continued by means of SurePress which will be applied daily. Current measures include leg elevation, avoidance of idle standing and sitting, activity as tolerated, weight control, and compression by means of SurePress, applied by the patient on a daily basis. She is to continue with the use of XtraSorb for moisture control. The ulceration continues to be exudative, and the patient has been encouraged to enhance the amount of time spent elevating her lower extremity, to help minimize the drainage. Patient is to continue the use of Vasculera orally on a daily basis. Nutritional optimization has been recommended. The indicates that the patient is largely noncompliant with leg elevation. She spends long hours each day in an idle sitting position. Patient weight is 160 pounds. Patient is 5 feet 9 inches tall. BMI is 23.6. BMI is reasonable. The patient is not a smoker. Influenza vaccine was not administered.
== END 2019-08-11 23:59 ==
LOC: WC 12:00
PROVIDERS: Visit Provider Surgery
DX: I83.222 Varicose veins of left lower extremity with both ulcer of calf and inflammation (principal); R60.0 Localized edema; L97.222 Non-pressure chronic ulcer of left calf with fat layer exposed; I89.0 Lymphedema, not elsewhere classified; M79.89 Other specified soft tissue disorders; Z86.718 Personal history of other venous thrombosis and embolism
CPT/HCPCS: 11042; 11045

== ENCOUNTER 2019-09-06 12:00 | Outpatient (RCR) | payer MEDICARE, BC, SELFPAY ==
[2019-08-12 00:33] VITALS: BP 138/81; PULSE 73; RESP 18; TEMP 36.6
[2019-08-23 11:57] VITALS: BP 155/83; PULSE 78; RESP 16; TEMP 35.9
--- NOTE | 2019-08-23 12:49 | HP.PCM_ITS ---
(1) Chronic venous hypertension with inflammation involving left side Status: Chronic Current Visit: Yes Code(s): I87.322 - Chronic venous hypertension (idiopathic) with inflammation of left lower extremity (2) Left leg swelling Status: Chronic Current Visit: Yes Code(s): M79.89 - Other specified soft tissue disorders (3) Varicose veins with ulcer and inflammation Status: Chronic Current Visit: Yes Code(s): I83.209 - Varicose veins of unspecified lower extremity with both ulcer of unspecified site and inflammation; L97.909 - Non-pressure chronic ulcer of unspecified part of unspecified lower leg with unspecified severity (4) Leg edema, left Status: Chronic Current Visit: Yes Code(s): R60.0 - Localized edema (5) May-Thurner syndrome Status: Resolved Current Visit: No Code(s): I87.1 - Compression of vein (6) History of DVT (deep vein thrombosis) Status: Chronic Current Visit: Yes Code(s): Z86.718 - Personal history of other venous thrombosis and embolism Comment: left lower ext (7) dermatomycosis leg Status: Resolved Current Visit: No (8) Cellulitis, leg Status: Resolved Current Visit: No Qualifiers: Code(s): L03.119 - Cellulitis of unspecified part of limb (9) Erythema of skin Status: Resolved Current Visit: No Code(s): L53.9 - Erythematous condition, unspecified (10) Cellulitis of leg Status: Resolved Current Visit: No Qualifiers: Code(s): L03.119 - Cellulitis of unspecified part of limb (11) Cellulitis Status: Resolved Current Visit: No Code(s): L03.90 - Cellulitis, unspecified (12) Chronic venous insufficiency Status: Chronic Current Visit: Yes (13) Lymphedema of left leg Status: Chronic Current Visit: Yes Code(s): I89.0 - Lymphedema, not elsewhere classified (14) 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 Status: Chronic Current Visit: Yes Code(s): I87.039 - Postthrombotic syndrome with ulcer and inflammation of unspecified lower extremity (15) Calf ulcer Status: Chronic Current Visit: Yes Qualifiers: Laterality: right Code(s): L97.209 - Non-pressure chronic ulcer of unspecified calf with unspecified severity (16) chronic left lower ext wound Status: Chronic Current Visit: Yes (17) Ulcer of right calf Status: Acute Current Visit: Yes Qualifiers: Non-pressure ulcer stage: with fat layer exposed Qualified Code(s): L97.212 - Non-pressure chronic ulcer of right calf with fat layer exposed Code(s): L97.219 - Non-pressure chronic ulcer of right calf with unspecified severity (18) Right leg swelling Status: Chronic Current Visit: Yes Code(s): M79.89 - Other specified soft tissue disorders (19) Leg edema, right Status: Chronic Current Visit: Yes Code(s): R60.0 - Localized edema History of Present Illness Date of Service: 08/23/19 Chief Complaint: Chronic venous insufficiency, chronic venous hypertension with inflammation and ulceration, varicose veins with inflammation and ulceration, post phlebitic syndrome with inflammation and ulceration,leg swelling, leg edema, lymphedema, venous stasis ulceration-left lower extremity History of Wound: This is a 79-year-old white female with a long-standing history of chronic venous disease and swelling in her left lower extremity. This has been present for many years. She has a large ulceration located between her left knee and ankle, which is quite large and irregular in shape, and also highly exudative. 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 She has also previously undergone successful endovenous laser ablation of the left great and small saphenous veins. Healing of the patient's left lower extremity ulceration has been slow, but progressive. A number of healing measures have been implemented in the past, without success. We are currently using Silvadene topically and Xtrasorb for absorption of exudate. 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) Calf ulcer (Chronic) chronic left lower ext wound (Chronic) Surgical History: appendectomy, hysterectomy Allergies/Adverse Reactions: Allergies Latex, Natural Rubber Allergy (Verified 07/12/13 11:34) Rash Sulfa (Sulfonamide Antibiotics) Allergy (Verified 07/12/13 11:34) Hives trimethoprim Allergy (Verified 07/12/13 11:34) Hives Home Medications: Ambulatory Orders Medication Instructions Recorded Aspirin [Aspirin, Baby] 81 mg PO DAILY@0800 07/12/13 Calcium Carb/Vitamin D [Os-Mo 1 tablet PO DAILY@0800 07/12/13 500MG + D] Clopidogrel Bisulfate [Plavix] 75 mg PO DAILY 07/12/13 Doxepin HCl [Sinequan] 100 mg PO BID 07/12/13 Doxycycline Monohydrate [Monodox] 100 mg PO BID 07/12/13 Kennedy-3 Fatty Acids/Fish Oil [Fish 1 each PO DAILY 07/12/13 Oil 1,000 mg Softgel] Vitamin B12 500 mg PO DAILY 07/12/13 Vitamin C 500 mg PO DAILY 07/12/13 proMETHazine soln (6.25mg/5mL) 5 ml PO Q4H PRN PRN 07/12/13 [Phenergan Plain] Prednisone [PredniSONE] 200 mg PO DAILY 07/03/14 Valacyclovir HCl [Valacyclovir] 500 mg PO DAILY 07/03/14 Smoking Status: Never smoker Tobacco Use: Non-smoker Review of Systems Constitutional: Denies: Chills, Fever, Weight Change Eyes: Denies: Pain, Vision Change HEENT: Denies: Difficulty Hearing, Difficulty Swallowing, Sinus Congestion Cardiovascular: Denies: Chest Pain, Palpitations Respiratory: Denies: Cough, Shortness of Breath Gastrointestinal: Denies: Diarrhea, Nausea, Vomiting Genitourinary: Denies: Dysuria, Hematuria Endocrine: Denies: Heat/ Cold Intolerance, Polydipsia, Polyuria Hematologic/ Lymphatic: Denies: Easy Bruising, Easy Bleeding - Physical Exam Vital Signs Temp Pulse Resp BP 96.6 F L 78 16 155/83 H 08/23/19 11:57 08/23/19 11:57 08/23/19 11:57 08/23/19 11:57 General: Alert, Oriented x3, Cooperative, No apparent distress, Well developed, Well nourished HEENT: Atraumatic, PERRLA, EOMI, Normocephalic Oral: Moist Mucosa Neck: No JVD Lungs: Normal air movement Abdomen: Non-Distended Extremities: No clubbing, No cyanosis, No Calf Tenderness, - - Moderate to severe swelling persists in the left lower extremity. It is most notable on the dorsum of the left foot. It is chronic in nature. The ulceration of the left calf persists as well. The ulceration remains large. Dimensions are documented elsewhere. There is no sign of infection or cellulitis. There is a large amount of bioburden and nonviable tissue. There are multiple areas of epithelialization. Mild swelling is also noted in the right lower extremity. Additionally, there is now a new open ulceration on the right lateral calf. Dimensions are documented elsewhere. There is a large amount of bioburden and nonviable tissue. The ulceration actually appears to be infected. There is a moderate amount of bioburden and nonviable tissue. A bruise/ecchymosis is noted involving the right second toe, suspicious for recent blunt trauma Wound Measurements and Assessment WC - Nurse 1 - General Ulcer Measurement Start: 08/23/19 11:57 Freq: Status: Active Protocol: Activity Type Activity Date Activity User E-Sign Co-Sign Detail Recorded Client Recorded Date Recorded By Document 08/23/19 11:57 [facility] [id number] 08/23/19 12:08 [facility] 08/23/19 11:57 Wound Center Nurse 1 [Ulcer Assessment] #6- R LAT DICKENS -Combined with other wound No -Current Size (cm) - Length 1.3 -Current Size (cm) - Width 1.5 -Current Size (cm) - Depth 0.2 -Total Square Cm 1.95 -Date of Last Picture (Recall this 08/23/19 field) -Photo Taken Yes -Epithelialization None Present -Tunneling No -Undermining/Tunneling No -Circular Undermining No -Exudate Amt Medium -Exudate Type Yellow/Green -Wound Margin Distinct, Outline Attached -Granulation Amt None Present (0 %) -Slough/Fibrin Yes -Necrosis Amt Large (67-100%) -Necrotic Tissue Type Adherent Slough -Texture (Nahomy-wound Skin Appearance) Assessed, Localized Edema -Moisture (Nahomy-wound Skin Appearance Assessed ) -Color (Nahomy-wound Skin Appearance) Assessed, Erythema -Temperature (Nahomy-wound Skin No Abnormality Appearance) (Pt Warm) -Tenderness on Palpation (Nahomy-wound No Skin Appearance) -Ulcer Cleansing SOAPY WATER -Foul Odor after Cleansing No -Anesthetic Used 4% Lidocaine Solution #5 LLE- Circumfrential -Combined with other wound No -Current Size (cm) - Length 14.6 -Current Size (cm) - Width 22.6 -Current Size (cm) - Depth 0.2 -Total Square Cm 329.96 -Photo Taken No -Epithelialization None Present -Tunneling No -Undermining/Tunneling No -Circular Undermining No -Exudate Amt Large -Exudate Type Yellow/Green -Wound Margin Distinct, Outline Attached -Granulation Amt Small (1-33%) -Granulation Quality [place] -Slough/Fibrin Yes -Necrosis Amt Large (67-100%) -Necrotic Tissue Type Adherent Slough -Texture (Nahomy-wound Skin Appearance) Assessed, Scarring -Moisture (Nahomy-wound Skin Appearance Assessed ) -Color (Nahomy-wound Skin Appearance) Assessed -Temperature (Nahomy-wound Skin No Abnormality Appearance) (Pt Warm) -Tenderness on Palpation (Nahomy-wound No Skin Appearance) -Ulcer Cleansing SOAPY WATER -Foul Odor after Cleansing No -Anesthetic Used 4% Lidocaine Solution [Edema Assessment] -Lower Limb Edema Present Yes -Right Calf (cm) 34.5 -Right Ankle (cm) 23.7 -Left Calf (cm) 43.7 -Left Ankle (cm) 23.6 WC - Nurse 2 - General Ulcer CM Notes Start: 08/23/19 11:57 Freq: Status: Active Protocol: Activity Type Activity Date Activity User E-Sign Co-Sign Detail Recorded Client Recorded Date Recorded By Document 08/23/19 12:33 [id number] 08/23/19 12:45 08/23/19 12:33 Wound Center Nurse 2 [Procedure/Treatment] #6- R LAT DICKENS -Time 12:33 -Correct Patient Yes -Correct Side, Site, Position Yes -Correct Procedure Yes -Procedure Performed Yes -Type of Procedure Debridement -Clinical Debridement Subcutaneous -Post Debridement Size (cm) - Length 2 -Post Debridement Size (cm) - Width 1.5 -Post Debridement Size (cm) - Depth 0.2 -Total Square Cm 3.0 -Wound/Ulcer Outcome Not Healed -Ulcer Cleansing Rinsed/ Irrigated with Saline -Foul Odor after Cleansing No -Bioengineered Tissue No -Bleeding Controlled with Pressure -Offloading Yes -Treatment Response Procedure Tolerated Well #5 LLE- Circumfrential -Time 12:34 -Correct Patient Yes -Correct Side, Site, Position Yes -Correct Procedure Yes -Procedure Performed Yes -Type of Procedure Debridement -Clinical Debridement Subcutaneous -Post Debridement Size (cm) - Length 11.5 -Post Debridement Size (cm) - Width 15 -Post Debridement Size (cm) - Depth 0.1 -Total Square Cm 172.5 -Wound/Ulcer Outcome Not Healed -Ulcer Cleansing Rinsed/ Irrigated with Saline -Foul Odor after Cleansing No -Bioengineered Tissue No -Bleeding Controlled with Pressure -Offloading Yes -Treatment Response Procedure Tolerated Well [See Physician Procedure note for Specifics] Pain Scale: 0-10 Numeric [Pain] -Is Patient Pain Free? Yes Musculoskeletal: No Muscle Wasting Neurological: Cranial nerves II-XII grossly intact, Neuro grossly intact Psych/Mental Status: Normal Affect, Appropriate, - - The patient actually raegan ears to be somewhat forgetful and is becoming less interactive, consistent with her diagnosis of Alzheimer's disease. Debridement Note Post-Debridement Measurements/Treatment WC - Nurse 2 - General Ulcer CM Notes Start: 08/23/19 11:57 Freq: Status: Active Protocol: Activity Type Activity Date Activity User E-Sign Co-Sign Detail Recorded Client Recorded Date Recorded By Document 08/23/19 12:33 [id number] 08/23/19 12:45 08/23/19 12:33 Wound Center Nurse 2 #6- R LAT DICKENS -Time 12:33 -Correct Patient Yes -Correct Side, Site, Position Yes -Correct Procedure Yes -Procedure Performed Yes -Type of Procedure Debridement -Clinical Debridement Subcutaneous -Post Debridement Size (cm) - Length 2 -Post Debridement Size (cm) - Width 1.5 -Post Debridement Size (cm) - Depth 0.2 -Total Square Cm 3.0 -Wound/Ulcer Outcome Not Healed -Ulcer Cleansing Rinsed/ Irrigated with Saline -Foul Odor after Cleansing No -Bioengineered Tissue No -Bleeding Controlled with Pressure -Offloading Yes -Treatment Response Procedure Tolerated Well #5 LLE- Circumfrential -Time 12:34 -Correct Patient Yes -Correct Side, Site, Position Yes -Correct Procedure Yes -Procedure Performed Yes -Type of Procedure Debridement -Clinical Debridement Subcutaneous -Post Debridement Size (cm) - Length 11.5 -Post Debridement Size (cm) - Width 15 -Post Debridement Size (cm) - Depth 0.1 -Total Square Cm 172.5 -Wound/Ulcer Outcome Not Healed -Ulcer Cleansing Rinsed/ Irrigated with Saline -Foul Odor after Cleansing No -Bioengineered Tissue No -Bleeding Controlled with Pressure -Offloading Yes -Treatment Response Procedure Tolerated Well Pain Scale: 0-10 Numeric Is Patient Pain Free? Yes Laterality: Left - Calf Type of Debridement: Excisional debridement Anesthesia Used: 5% Lidocaine Gel Depth: Down to and including healthy tissue, in the subcutaneous layer Percentage of wound debrided: 100 Instrument Used: 5mm curette Tissue Removed: Bioburden and nonviable tissue Bleeding Controlled with: Compression and gauze Patient tolerated procedure well With respect to the debridement of the right lateral calf ulceration, which is recent, swab cultures were obtained, for both aerobic and anaerobic growth. - Additional Wound Laterality: Right - Lateral calf Type of Debridement: Excisional debridement Anesthesia Used: 5% Lidocaine Gel Depth: Down to and including healthy tissue, in the subcutaneous layer Percentage of wound debrided: 100 Instrument Used: 5mm curette Tissue Removed: Bioburden and nonviable tissue Severity: Fat Layer Exposed Amount of bleeding with debridement: Mild Bleeding Controlled with: Compression and gauze Patient tolerated procedure: Patient tolerated procedure well Assessment/Plan Active Problems Ulcer of right calf (Acute) Right leg swelling (Chronic) Leg edema, right (Chronic) Chronic venous hypertension with inflammation involving left side (Chronic) Left leg swelling (Chronic) Varicose veins with ulcer and inflammation (Chronic) Leg edema, left (Chronic) History of DVT (deep vein thrombosis) (Chronic) left lower ext Chronic venous insufficiency (Chronic) Lymphedema of left leg (Chronic) 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 She has a large irregular ulceration on the left lower extremity which is related to her venous disease. The patient has demonstrated slow but progressive improvement. She presented today with a new ulceration on the right lateral calf. The etiology of this new ulceration is uncertain. There was noted to be a large amount of bioburden and nonviable tissue. Swab cultures were obtained for both aerobic and anaerobic growth. We are to continue leg elevation, avoidance of idle standing and sitting, compression by means of SurePress, active lifestyle, weight control measures,etc. She is to continue to take a well-balanced, nutritious diet. We are to continue with the use of Silvadene topically. This will be applied topically on a daily basis. Plan: We are to continue with conservative measures. These measures are to include leg elevation. She is to continue sleeping on a flat mattress at night. Her legs are to be elevated to heart level, or higher, even during daytime hours. Leg elevation has been recommended as much as possible. The patient is to avoid prolonged idle sitting. Activity has been encouraged. We are to await the results of cultures, both aerobic and anaerobic. We are to transition to the use of Silver Marta topically to each of the lower extremity ulcerations. Silver Marta will be applied topically twice weekly, and the lower extremities will be wrapped with a 3M 2 layer compression wrap. This combination will be applied twice weekly. The patient is also been encouraged to re-implement the use of mechanical compression pumps. The mechanical pneumatic compression pumps are to be used twice or 3 times daily. In general, it appears as though the patient's level of compliance has been less than optimal in the past. According to the patient's , the patient has become increasingly more difficult to manage in the home setting, due to her Alzheimer's dementia, which is a major component in her noncompliance. Patient is to continue the use of Vasculera orally on a daily basis. Nutritional optimization has been recommended. The patient will undergo reevaluation in 1 week. Patient weight is 160 pounds. Patient is 5 feet 9 inches tall. BMI is 23.6. BMI is reasonable. The patient is not a smoker. Influenza vaccine was not administered.
[2019-08-26 12:42] VITALS: BP 143/77; PULSE 71; RESP 18; TEMP 36.8
[2019-08-30 11:56] VITALS: BP 156/80; PULSE 75; RESP 16; TEMP 36.2
--- NOTE | 2019-08-30 12:46 | PCM.WC.HP ---
(1) Chronic venous hypertension with inflammation involving left side Status: Chronic Current Visit: Yes Code(s): I87.322 - Chronic venous hypertension (idiopathic) with inflammation of left lower extremity (2) Left leg swelling Status: Chronic Current Visit: Yes Code(s): M79.89 - Other specified soft tissue disorders (3) Varicose veins with ulcer and inflammation Status: Chronic Current Visit: Yes Code(s): I83.209 - Varicose veins of unspecified lower extremity with both ulcer of unspecified site and inflammation; L97.909 - Non-pressure chronic ulcer of unspecified part of unspecified lower leg with unspecified severity (4) Leg edema, left Status: Chronic Current Visit: Yes Code(s): R60.0 - Localized edema (5) History of DVT (deep vein thrombosis) Status: Chronic Current Visit: Yes Code(s): Z86.718 - Personal history of other venous thrombosis and embolism Comment: left lower ext (6) Chronic venous insufficiency Status: Chronic Current Visit: Yes (7) Lymphedema of left leg Status: Chronic Current Visit: Yes Code(s): I89.0 - Lymphedema, not elsewhere classified (8) 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 Status: Chronic Current Visit: Yes Code(s): I87.039 - Postthrombotic syndrome with ulcer and inflammation of unspecified lower extremity (9) Calf ulcer Status: Chronic Current Visit: Yes Qualifiers: Laterality: right Code(s): L97.209 - Non-pressure chronic ulcer of unspecified calf with unspecified severity (10) chronic left lower ext wound Status: Chronic Current Visit: Yes (11) Ulcer of right calf Status: Acute Current Visit: Yes Qualifiers: Non-pressure ulcer stage: with fat layer exposed Qualified Code(s): L97.212 - Non-pressure chronic ulcer of right calf with fat layer exposed Code(s): L97.219 - Non-pressure chronic ulcer of right calf with unspecified severity (12) Right leg swelling Status: Chronic Current Visit: Yes Code(s): M79.89 - Other specified soft tissue disorders (13) Leg edema, right Status: Chronic Current Visit: Yes Code(s): R60.0 - Localized edema History of Present Illness Date of Service: 08/30/19 Chief Complaint: Chronic venous insufficiency, chronic venous hypertension with inflammation and ulceration, varicose veins with inflammation and ulceration, post phlebitic syndrome with inflammation and ulceration,leg swelling, leg edema, lymphedema, venous stasis ulceration-left lower extremity History of Wound: This is a 79-year-old white female with a long-standing history of chronic venous disease and swelling in her left lower extremity. This has been present for many years. She has a large ulceration located between her left knee and ankle, which is quite large and irregular in shape, and also highly exudative. 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 She has also previously undergone successful endovenous laser ablation of the left great and small saphenous veins. Healing of the patient's left lower extremity ulceration has been slow, but progressive. A number of healing measures have been implemented in the past, without success. We are currently using Silvadene topically and Xtrasorb for absorption of exudate. 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) Calf ulcer (Chronic) chronic left lower ext wound (Chronic) Surgical History: appendectomy, hysterectomy Allergies/Adverse Reactions: Allergies Latex, Natural Rubber Allergy (Verified 07/12/13 11:34) Rash Sulfa (Sulfonamide Antibiotics) Allergy (Verified 07/12/13 11:34) Hives trimethoprim Allergy (Verified 07/12/13 11:34) Hives Home Medications: Ambulatory Orders Medication Instructions Recorded Aspirin [Aspirin, Baby] 81 mg PO DAILY@0800 07/12/13 Calcium Carb/Vitamin D [Os-Mo 1 tablet PO DAILY@0800 07/12/13 500MG + D] Clopidogrel Bisulfate [Plavix] 75 mg PO DAILY 07/12/13 Doxepin HCl [Sinequan] 100 mg PO BID 07/12/13 Doxycycline Monohydrate [Monodox] 100 mg PO BID 07/12/13 [place]-3 Fatty Acids/Fish Oil [Fish 1 each PO DAILY 07/12/13 Oil 1,000 mg Softgel] Vitamin B12 500 mg PO DAILY 07/12/13 Vitamin C 500 mg PO DAILY 07/12/13 proMETHazine soln (6.25mg/5mL) 5 ml PO Q4H PRN PRN 07/12/13 [Phenergan Plain] Prednisone [PredniSONE] 200 mg PO DAILY 07/03/14 Valacyclovir HCl [Valacyclovir] 500 mg PO DAILY 07/03/14 Smoking Status: Never smoker Tobacco Use: Non-smoker Review of Systems Constitutional: Denies: Chills, Fever, Weight Change Eyes: Denies: Pain, Vision Change HEENT: Denies: Difficulty Hearing, Difficulty Swallowing, Sinus Congestion Cardiovascular: Denies: Chest Pain, Palpitations Respiratory: Denies: Cough, Shortness of Breath Gastrointestinal: Denies: Diarrhea, Nausea, Vomiting Genitourinary: Denies: Dysuria, Hematuria Endocrine: Denies: Heat/ Cold Intolerance, Polydipsia, Polyuria Hematologic/ Lymphatic: Denies: Easy Bruising, Easy Bleeding - Physical Exam Vital Signs Temp Pulse Resp BP 97.1 F L 75 16 156/80 H 08/30/19 11:56 08/30/19 11:56 08/30/19 11:56 08/30/19 11:56 General: Alert, Cooperative, No apparent distress, Well developed, Well nourished, - - The patient is interactive and largely appropriate, though demonstrates some manifestations of dementia. HEENT: Atraumatic, PERRLA, EOMI, Normocephalic Oral: Moist Mucosa Neck: No JVD Lungs: Normal air movement Abdomen: Non-Distended Extremities: No clubbing, No cyanosis, No Calf Tenderness, - - Swelling and edema persist in the left lower extremity, most notable on the dorsum of the left foot. This has been chronic in nature. There is also some swelling and edema in the right lower extremity, also noted on the dorsum of the right foot. The swelling in the left lower extremity is far more severe than that on the right. The ulceration of the left calf persists. There are areas of epithelialization. There is a large amount of bioburden and nonviable tissue involving the ulceration of the left calf. Dimensions are documented elsewhere. The ulceration of the right lateral calf persists. Dimensions are documented elsewhere. There is a moderate amount of bioburden and nonviable tissue. Wound Measurements and Assessment WC - Nurse 1 - General Ulcer Measurement Start: 08/23/19 11:57 Freq: Status: Active Protocol: Activity Type Activity Date Activity User E-Sign Co-Sign Detail Recorded Client Recorded Date Recorded By Document 08/30/19 11:56 [facility] [id number] 08/30/19 12:06 [facility] 08/30/19 11:56 Wound Center Nurse 1 [Ulcer Assessment] #6- R LAT DICKENS -Combined with other wound No -Current Size (cm) - Length 2.3 -Current Size (cm) - Width 1.3 -Current Size (cm) - Depth 0.1 -Total Square Cm 2.99 -Photo Taken No -Epithelialization None Present -Tunneling No -Undermining/Tunneling No -Circular Undermining No -Exudate Amt Medium -Exudate Type Serosanguineous -Wound Margin Distinct, Outline Attached -Granulation Amt Small (1-33%) -Granulation Quality Red -Slough/Fibrin Yes -Necrosis Amt Large (67-100%) -Necrotic Tissue Type Adherent Slough -Texture (Nahomy-wound Skin Appearance) Assessed, Scarring -Moisture (Nahomy-wound Skin Appearance Assessed ) -Color (Nahomy-wound Skin Appearance) Assessed, Erythema -Temperature (Nahomy-wound Skin No Abnormality Appearance) (Pt Warm) -Tenderness on Palpation (Nahomy-wound Yes Skin Appearance) -Ulcer Cleansing soapy water -Foul Odor after Cleansing No -Anesthetic Used 4% Lidocaine Solution #5 LLE- Circumfrential -Combined with other wound No -Current Size (cm) - Length 14.5 -Current Size (cm) - Width 21 -Current Size (cm) - Depth 0.2 -Total Square Cm 304.5 -Photo Taken No -Epithelialization Small 1-33% -Tunneling No -Undermining/Tunneling No -Circular Undermining No -Exudate Amt Large -Exudate Type Serosanguineous -Wound Margin Distinct, Outline Attached -Granulation Amt Medium (34-66%) -Granulation Quality Red -Slough/Fibrin Yes -Necrosis Amt Medium (34-66%) -Necrotic Tissue Type Adherent Slough -Texture (Nahomy-wound Skin Appearance) Assessed, Scarring -Moisture (Nahomy-wound Skin Appearance Assessed ) -Color (Nahomy-wound Skin Appearance) Assessed, Erythema -Temperature (Nahomy-wound Skin No Abnormality Appearance) (Pt Warm) -Tenderness on Palpation (Nahomy-wound Yes Skin Appearance) -Ulcer Cleansing soapy water -Foul Odor after Cleansing No -Anesthetic Used 4% Lidocaine Solution [Edema Assessment] -Lower Limb Edema Present Yes -Right Calf (cm) 34 -Right Ankle (cm) 22.7 -Left Calf (cm) 35.5 -Left Ankle (cm) 25.5 WC - Nurse 2 - General Ulcer CM Notes Start: 08/23/19 11:57 Freq: Status: Active Protocol: Activity Type Activity Date Activity User E-Sign Co-Sign Detail Recorded Client Recorded Date Recorded By Document 08/30/19 12:24 [id number] 08/30/19 12:41 08/30/19 12:24 Wound Center Nurse 2 [Procedure/Treatment] #6- R LAT DICKENS -Time 12:31 -Correct Patient Yes -Correct Side, Site, Position Yes -Correct Procedure Yes -Procedure Performed Yes -Type of Procedure Debridement -Clinical Debridement Subcutaneous -Post Debridement Size (cm) - Length 2.2 -Post Debridement Size (cm) - Width 1.9 -Post Debridement Size (cm) - Depth 0.1 -Total Square Cm 4.18 -Wound/Ulcer Outcome Failed Graft -Ulcer Cleansing Rinsed/ Irrigated with Saline -Foul Odor after Cleansing No -Bioengineered Tissue No -Bleeding Controlled with Pressure -Offloading Yes -Treatment Response Procedure Tolerated Well #5 LLE- Circumfrential -Time 12:33 -Correct Patient Yes -Correct Side, Site, Position Yes -Correct Procedure Yes -Procedure Performed Yes -Type of Procedure Debridement -Clinical Debridement Subcutaneous -Post Debridement Size (cm) - Length 13.4 -Post Debridement Size (cm) - Width 17.2 -Post Debridement Size (cm) - Depth 0.1 -Total Square Cm 230.48 -Wound/Ulcer Outcome Failed Flap -Ulcer Cleansing Rinsed/ Irrigated with Saline -Foul Odor after Cleansing No -Bioengineered Tissue No -Bleeding Controlled with Pressure -Offloading Yes [See Physician Procedure note for Specifics] Neurological: Cranial nerves II-XII grossly intact, Neuro grossly intact Psych/Mental Status: Normal Affect, Appropriate - Patient's affect is appropriate and grossly normal. However, there are subtle signs of dementia. Debridement Note Post-Debridement Measurements/Treatment WC - Nurse 2 - General Ulcer CM Notes Start: 08/23/19 11:57 Freq: Status: Active Protocol: Activity Type Activity Date Activity User E-Sign Co-Sign Detail Recorded Client Recorded Date Recorded By Document 08/23/19 12:33 [id number] 08/23/19 12:45 MD Document 08/30/19 12:24 [id number] 08/30/19 12:41 08/23/19 08/30/19 12:33 12:24 Wound Center Nurse 2 #6- R LAT DICKENS -Time 12:33 12:31 -Correct Patient Yes Yes -Correct Side, Site, Position Yes Yes -Correct Procedure Yes Yes -Procedure Performed Yes Yes -Type of Procedure Debridement Debridement -Clinical Debridement Subcutaneous Subcutaneous -Post Debridement Size (cm) - Length 2 2.2 -Post Debridement Size (cm) - Width 1.5 1.9 -Post Debridement Size (cm) - Depth 0.2 0.1 -Total Square Cm 3.0 4.18 -Wound/Ulcer Outcome Not Healed Failed Graft -Ulcer Cleansing Rinsed/ Rinsed/ Irrigated with Irrigated with Saline Saline -Foul Odor after Cleansing No No -Bioengineered Tissue No No -Bleeding Controlled with Pressure Pressure -Offloading Yes Yes -Treatment Response Procedure Procedure Tolerated Well Tolerated Well #5 LLE- Circumfrential -Time 12:34 12:33 -Correct Patient Yes Yes -Correct Side, Site, Position Yes Yes -Correct Procedure Yes Yes -Procedure Performed Yes Yes -Type of Procedure Debridement Debridement -Clinical Debridement Subcutaneous Subcutaneous -Post Debridement Size (cm) - Length 11.5 13.4 -Post Debridement Size (cm) - Width 15 17.2 -Post Debridement Size (cm) - Depth 0.1 0.1 -Total Square Cm 172.5 230.48 -Wound/Ulcer Outcome Not Healed Failed Flap -Ulcer Cleansing Rinsed/ Rinsed/ Irrigated with Irrigated with Saline Saline -Foul Odor after Cleansing No No -Bioengineered Tissue No No -Bleeding Controlled with Pressure Pressure -Offloading Yes Yes -Treatment Response Procedure Tolerated Well Pain Scale: 0-10 Numeric Is Patient Pain Free? Yes Laterality: Left - Calf Type of Debridement: Excisional debridement Anesthesia Used: 5% Lidocaine Gel Depth: Down to and including healthy tissue, in the subcutaneous layer Percentage of wound debrided: 100 Instrument Used: 7mm curette Tissue Removed: Bioburden and nonviable tissue Severity: Fat Layer Exposed Amount of bleeding with debridement: Mild Bleeding Controlled with: Compression and gauze Patient tolerated procedure well - Additional Wound Laterality: Right - Lateral calf Type of Debridement: Excisional debridement Anesthesia Used: 5% Lidocaine Gel Depth: Down to and including healthy tissue, in the subcutaneous layer Percentage of wound debrided: 100 Instrument Used: 7mm curette Tissue Removed: Bioburden and nonviable tissue Severity: Fat Layer Exposed Amount of bleeding with debridement: Mild Bleeding Controlled with: Compression and gauze Patient tolerated procedure: Patient tolerated procedure well Assessment/Plan Active Problems Ulcer of right calf (Acute) Right leg swelling (Chronic) Leg edema, right (Chronic) Chronic venous hypertension with inflammation involving left side (Chronic) Left leg swelling (Chronic) Varicose veins with ulcer and inflammation (Chronic) Leg edema, left (Chronic) History of DVT (deep vein thrombosis) (Chronic) left lower ext Chronic venous insufficiency (Chronic) Lymphedema of left leg (Chronic) 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 She has a large irregular ulceration on the left lower extremity which is related to her venous disease. The patient has demonstrated slow but progressive improvement. She presented recently with a new ulceration on the right lateral calf. The etiology of this new ulceration is uncertain. There was noted to be a large amount of bioburden and nonviable tissue. Swab cultures were obtained for both aerobic and anaerobic growth. The results revealed Staphylococcus aureus, very rare in amount. We are to continue leg elevation, avoidance of idle standing and sitting, compression by means of SurePress, active lifestyle, weight control measures,etc. She is to continue to take a well-balanced, nutritious diet. We are to continue with the use of Silvadene topically to the ulceration of the left calf. This will be applied topically on a daily basis. We will implement the use of collagenase Santyl topically to the ulceration on the right lateral calf. We will first check to see that it is affordable. Plan: We are to continue with conservative measures. These measures are to include leg elevation. She is to continue sleeping on a flat mattress at night. Her legs are to be elevated to heart level, or higher, even during daytime hours. Leg elevation has been recommended as much as possible. The patient is to avoid prolonged idle sitting. Activity has been encouraged. We are to use Silvadene topically to the left lower extremity ulceration, with XtraSorb for control of exudative drainage. We are to implement the use of collagenase Santyl topically to the ulceration on the right lateral calf. We will first assure that it is within affordable range for the patient and her family. Because these topical preparations require daily application, we are to use SurePress compression wraps on a daily basis, which will be applied with the assistance of the patient's family. The patient has also re-implemented the use of mechanical compression pumps. The mechanical pneumatic compression pumps are to be used twice or 3 times daily. In general, it appears as though the patient's level of compliance has been less than optimal in the past. According to the patient's , the patient has become increasingly more difficult to manage in the home setting, due to her Alzheimer's dementia, which is a major component in her noncompliance. Because the patient's recent culture demonstrates very rare Staphylococcus aureus, this may represent a contaminant, and may not be clinically significant. Thus, we are to refrain from initiating antibiotic coverage. However, we will continue to monitor the patient's wounds closely for signs of bacterial infection. Patient is to continue the use of Vasculera orally on a daily basis. Nutritional optimization has been recommended. The patient will undergo reevaluation in 1 week. Patient weight is 160 pounds. Patient is 5 feet 9 inches tall. BMI is 23.6. BMI is reasonable. The patient is not a smoker. Influenza vaccine was not administered.
[2019-09-06 12:19] VITALS: BP 131/64; PULSE 78; RESP 16; TEMP 36.4
--- NOTE | 2019-09-06 13:32 | HP.PCM_ITS ---
(1) Chronic venous hypertension with inflammation involving left side Status: Chronic Current Visit: Yes Code(s): I87.322 - Chronic venous hypertension (idiopathic) with inflammation of left lower extremity (2) Left leg swelling Status: Chronic Current Visit: Yes Code(s): M79.89 - Other specified soft tissue disorders (3) Varicose veins with ulcer and inflammation Status: Chronic Current Visit: Yes Code(s): I83.209 - Varicose veins of unspecified lower extremity with both ulcer of unspecified site and inflammation; L97.909 - Non-pressure chronic ulcer of unspecified part of unspecified lower leg with unspecified severity (4) Leg edema, left Status: Chronic Current Visit: Yes Code(s): R60.0 - Localized edema (5) History of DVT (deep vein thrombosis) Status: Chronic Current Visit: Yes Code(s): Z86.718 - Personal history of other venous thrombosis and embolism Comment: left lower ext (6) Chronic venous insufficiency Status: Chronic Current Visit: Yes (7) Lymphedema of left leg Status: Chronic Current Visit: Yes Code(s): I89.0 - Lymphedema, not elsewhere classified (8) 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 Status: Chronic Current Visit: Yes Code(s): I87.039 - Postthrombotic syndrome with ulcer and inflammation of unspecified lower extremity (9) Calf ulcer Status: Chronic Current Visit: Yes Qualifiers: Laterality: right Code(s): L97.209 - Non-pressure chronic ulcer of unspecified calf with unspecified severity (10) chronic left lower ext wound Status: Chronic Current Visit: Yes (11) Ulcer of right calf Status: Acute Current Visit: Yes Qualifiers: Non-pressure ulcer stage: with fat layer exposed Qualified Code(s): L97.212 - Non-pressure chronic ulcer of right calf with fat layer exposed Code(s): L97.219 - Non-pressure chronic ulcer of right calf with unspecified severity (12) Right leg swelling Status: Chronic Current Visit: Yes Code(s): M79.89 - Other specified soft tissue disorders (13) Leg edema, right Status: Chronic Current Visit: Yes Code(s): R60.0 - Localized edema History of Present Illness Date of Service: 09/06/19 Chief Complaint: Chronic venous insufficiency, chronic venous hypertension with inflammation and ulceration, varicose veins with inflammation and ulceration, post phlebitic syndrome with inflammation and ulceration,leg swelling, leg edema, lymphedema, venous stasis ulceration-left lower extremity History of Wound: This is a 79-year-old white female with a long-standing history of chronic venous disease and swelling in her left lower extremity. This has been present for many years. She has a large ulceration located between her left knee and ankle, which is quite large and irregular in shape, and also highly exudative. 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 She has also previously undergone successful endovenous laser ablation of the left great and small saphenous veins. Healing of the patient's left lower extremity ulceration has been slow, but progressive. A number of healing measures have been implemented in the past, without success. We are currently using Silvadene topically and Xtrasorb for absorption of exudate. 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) Calf ulcer (Chronic) chronic left lower ext wound (Chronic) Surgical History: appendectomy, hysterectomy Allergies/Adverse Reactions: Allergies Latex, Natural Rubber Allergy (Verified 07/12/13 11:34) Rash Sulfa (Sulfonamide Antibiotics) Allergy (Verified 07/12/13 11:34) Hives trimethoprim Allergy (Verified 07/12/13 11:34) Hives Home Medications: Ambulatory Orders Medication Instructions Recorded Aspirin [Aspirin, Baby] 81 mg PO DAILY@0800 07/12/13 Calcium Carb/Vitamin D [Os-Mo 1 tablet PO DAILY@0800 07/12/13 500MG + D] Clopidogrel Bisulfate [Plavix] 75 mg PO DAILY 07/12/13 Doxepin HCl [Sinequan] 100 mg PO BID 07/12/13 Doxycycline Monohydrate [Monodox] 100 mg PO BID 07/12/13 [place]-3 Fatty Acids/Fish Oil [Fish 1 each PO DAILY 07/12/13 Oil 1,000 mg Softgel] Vitamin B12 500 mg PO DAILY 07/12/13 Vitamin C 500 mg PO DAILY 07/12/13 proMETHazine soln (6.25mg/5mL) 5 ml PO Q4H PRN PRN 07/12/13 [Phenergan Plain] Prednisone [PredniSONE] 200 mg PO DAILY 07/03/14 Valacyclovir HCl [Valacyclovir] 500 mg PO DAILY 07/03/14 Smoking Status: Never smoker Tobacco Use: Non-smoker Review of Systems Constitutional: Denies: Chills, Fever, Weight Change Eyes: Denies: Pain, Vision Change HEENT: Denies: Difficulty Hearing, Difficulty Swallowing, Sinus Congestion Cardiovascular: Denies: Chest Pain, Palpitations Respiratory: Denies: Cough, Shortness of Breath Gastrointestinal: Denies: Diarrhea, Nausea, Vomiting Genitourinary: Denies: Dysuria, Hematuria Endocrine: Denies: Heat/ Cold Intolerance, Polydipsia, Polyuria Hematologic/ Lymphatic: Denies: Easy Bruising, Easy Bleeding - Physical Exam Vital Signs Temp Pulse Resp BP 97.5 F L 78 16 131/64 H 09/06/19 12:19 09/06/19 12:19 09/06/19 12:19 09/06/19 12:19 General: Alert, Oriented x3, Cooperative, No apparent distress, Well developed, Well nourished HEENT: Atraumatic, PERRLA, EOMI, Normocephalic Oral: Moist Mucosa Neck: No JVD Lungs: Normal air movement Abdomen: Non-Distended Extremities: No clubbing, No cyanosis, No Calf Tenderness, - - Swelling and edema persist in the lower extremity's bilaterally. It is most profound in the left lower extremity. It is most notable on the dorsum of the left foot. There is also some minor swelling persisting in the right lower extremity, though this appears to be improved. The ulceration on the right lateral calf persists. Dimensions are documented elsewhere. There is a large amount of bioburden and nonviable tissue. The ulceration on the left calf persists as well, quite large in size, and irregular in shape. There is a large amount of bioburden, nonviable tissue, and exudate. Dimensions are documented elsewhere. There is no sign of infection or cellulitis. Skin: No rashes Wound Measurements and Assessment WC - Nurse 1 - General Ulcer Measurement Start: 08/23/19 11:57 Freq: Status: Active Protocol: Activity Type Activity Date Activity User E-Sign Co-Sign Detail Recorded Client Recorded Date Recorded By Document 09/06/19 12:19 [facility] [id number] 09/06/19 12:27 [facility] 09/06/19 12:19 Wound Center Nurse 1 [Ulcer Assessment] #6- R LAT DICKENS -Combined with other wound No -Current Size (cm) - Length 2.3 -Current Size (cm) - Width 2.1 -Current Size (cm) - Depth 0.3 -Total Square Cm 4.83 -Tunneling No -Undermining/Tunneling No -Circular Undermining No -Exudate Amt Small -Exudate Type Serosanguineous -Wound Margin Flat & Intact -Granulation Amt Small (1-33%) -Granulation Quality [place] -Slough/Fibrin Yes -Necrosis Amt Large (67-100%) -Necrotic Tissue Type Adherent Slough -Structure Exposed N/A -Texture (Nahomy-wound Skin Appearance) Assessed -Moisture (Nahomy-wound Skin Appearance Assessed ) -Color (Nahomy-wound Skin Appearance) Erythema -Temperature (Nahomy-wound Skin No Abnormality Appearance) (Pt Warm) -Tenderness on Palpation (Nahomy-wound No Skin Appearance) -Ulcer Cleansing Wound Cleanser -Foul Odor after Cleansing No -Anesthetic Used 4% Lidocaine Solution #5 LLE- Circumfrential -Combined with other wound No -Current Size (cm) - Length 14.2 -Current Size (cm) - Width 25.5 -Current Size (cm) - Depth 0.2 -Total Square Cm 362.10 -Tunneling No -Undermining/Tunneling No -Circular Undermining No -Exudate Amt Medium -Exudate Type Serosanguineous -Wound Margin Flat & Intact -Granulation Amt Medium (34-66%) -Granulation Quality [place] -Slough/Fibrin Yes -Necrosis Amt Large (67-100%) -Necrotic Tissue Type Adherent Slough -Structure Exposed N/A -Texture (Nahomy-wound Skin Appearance) Assessed, Friable -Moisture (Nahomy-wound Skin Appearance Assessed ) -Color (Nahomy-wound Skin Appearance) Assessed -Temperature (Nahomy-wound Skin No Abnormality Appearance) (Pt Warm) -Tenderness on Palpation (Nahomy-wound No Skin Appearance) -Ulcer Cleansing Rinsed/ Irrigated with Saline -Foul Odor after Cleansing No -Anesthetic Used 4% Lidocaine Solution [Edema Assessment] -Lower Limb Edema Present Yes -Right Calf (cm) 33.8 -Right Ankle (cm) 23.4 -Left Calf (cm) 35.3 -Left Ankle (cm) 24.8 ANNA - Nurse 2 - General Ulcer CM Notes Start: 08/23/19 11:57 Freq: Status: Active Protocol: Activity Type Activity Date Activity User E-Sign Co-Sign Detail Recorded Client Recorded Date Recorded By Document 09/06/19 12:52 TANYA [id number] 09/06/19 12:59 TANYA 09/06/19 12:52 Wound Center Nurse 2 [Procedure/Treatment] #6- R LAT DICKENS -Time 12:53 -Correct Patient Yes -Correct Side, Site, Position Yes -Correct Procedure Yes -Procedure Performed Yes -Type of Procedure Debridement -Clinical Debridement Subcutaneous -Post Debridement Size (cm) - Length 2.4 -Post Debridement Size (cm) - Width 2.2 -Post Debridement Size (cm) - Depth 0.3 -Total Square Cm 5.28 -Wound/Ulcer Outcome Not Healed -Ulcer Cleansing Rinsed/ Irrigated with Saline -Foul Odor after Cleansing No -Bioengineered Tissue No -Bleeding Controlled with Pressure -Offloading No -Treatment Response Procedure Tolerated Well #5 LLE- Circumfrential -Time 12:53 -Correct Patient Yes -Correct Side, Site, Position Yes -Correct Procedure Yes -Procedure Performed Yes -Type of Procedure Debridement -Clinical Debridement Subcutaneous -Post Debridement Size (cm) - Length 14.2 -Post Debridement Size (cm) - Width 25.6 -Post Debridement Size (cm) - Depth 0.2 -Total Square Cm 363.52 -Wound/Ulcer Outcome Not Healed -Ulcer Cleansing Rinsed/ Irrigated with Saline -Foul Odor after Cleansing No -Bioengineered Tissue No -Bleeding Controlled with Pressure -Offloading No -Treatment Response Procedure Tolerated Well [See Physician Procedure note for Specifics] Pain Scale: 0-10 Numeric [Pain] -Is Patient Pain Free? Yes Musculoskeletal: No Muscle Wasting Neurological: Cranial nerves II-XII grossly intact, Neuro grossly intact Psych/Mental Status: Normal Affect, Appropriate, Alert and oriented to time, place, person, mood and affect Debridement Note Post-Debridement Measurements/Treatment ANNA - Nurse 2 - General Ulcer CM Notes Start: 08/23/19 11:57 Freq: Status: Active Protocol: Activity Type Activity Date Activity User E-Sign Co-Sign Detail Recorded Client Recorded Date Recorded By Document 08/23/19 12:33 [id number] 08/23/19 12:45 MD Document 08/30/19 12:24 [id number] 08/30/19 12:41 MD Document 09/06/19 12:52 TANYA [id number] 09/06/19 12:59 TANYA 08/23/19 08/30/19 09/06/19 12:33 12:24 12:52 Wound Center Nurse 2 #6- R LAT DICKENS -Time 12:33 12:31 12:53 -Correct Patient Yes Yes Yes -Correct Side, Site, Position Yes Yes Yes -Correct Procedure Yes Yes Yes -Procedure Performed Yes Yes Yes -Type of Procedure Debridement Debridement Debridement -Clinical Debridement Subcutaneous Subcutaneous Subcutaneous -Post Debridement Size (cm) - Length 2 2.2 2.4 -Post Debridement Size (cm) - Width 1.5 1.9 2.2 -Post Debridement Size (cm) - Depth 0.2 0.1 0.3 -Total Square Cm 3.0 4.18 5.28 -Wound/Ulcer Outcome Not Healed Failed Graft Not Healed -Ulcer Cleansing Rinsed/ Rinsed/ Rinsed/ Irrigated with Irrigated with Irrigated with Saline Saline Saline -Foul Odor after Cleansing No No No -Bioengineered Tissue No No No -Bleeding Controlled with Pressure Pressure Pressure -Offloading Yes Yes No -Treatment Response Procedure Procedure Procedure Tolerated Well Tolerated Well Tolerated Well #5 LLE- Circumfrential -Time 12:34 12:33 12:53 -Correct Patient Yes Yes Yes -Correct Side, Site, Position Yes Yes Yes -Correct Procedure Yes Yes Yes -Procedure Performed Yes Yes Yes -Type of Procedure Debridement Debridement Debridement -Clinical Debridement Subcutaneous Subcutaneous Subcutaneous -Post Debridement Size (cm) - Length 11.5 13.4 14.2 -Post Debridement Size (cm) - Width 15 17.2 25.6 -Post Debridement Size (cm) - Depth 0.1 0.1 0.2 -Total Square Cm 172.5 230.48 363.52 -Wound/Ulcer Outcome Not Healed Failed Flap Not Healed -Ulcer Cleansing Rinsed/ Rinsed/ Rinsed/ Irrigated with Irrigated with Irrigated with Saline Saline Saline -Foul Odor after Cleansing No No No -Bioengineered Tissue No No No -Bleeding Controlled with Pressure Pressure Pressure -Offloading Yes Yes No -Treatment Response Procedure Procedure Tolerated Well Tolerated Well Pain Scale: 0-10 Numeric Is Patient Pain Free? Yes Yes Laterality: Right - Lateral calf Type of Debridement: Excisional debridement Anesthesia Used: 5% Lidocaine Gel Depth: Down to and including healthy tissue, in the subcutaneous layer Percentage of wound debrided: 100 Instrument Used: 5mm curette Tissue Removed: Bioburden and nonviable tissue Severity: Fat Layer Exposed Amount of bleeding with debridement: Mild Bleeding Controlled with: Compression and gauze Patient tolerated procedure well - Additional Wound Laterality: Left - Calf Type of Debridement: Excisional debridement Anesthesia Used: 5% Lidocaine Gel Depth: Down to and including healthy tissue, in the subcutaneous layer Percentage of wound debrided: 100 Instrument Used: 5mm curette Tissue Removed: Bioburden, nonviable tissue, and exudate Severity: Fat Layer Exposed Amount of bleeding with debridement: Mild Bleeding Controlled with: Compression and gauze Patient tolerated procedure: Patient tolerated procedure well Assessment/Plan Active Problems Ulcer of right calf (Acute) Right leg swelling (Chronic) Leg edema, right (Chronic) Chronic venous hypertension with inflammation involving left side (Chronic) Left leg swelling (Chronic) Varicose veins with ulcer and inflammation (Chronic) Leg edema, left (Chronic) History of DVT (deep vein thrombosis) (Chronic) left lower ext Chronic venous insufficiency (Chronic) Lymphedema of left leg (Chronic) 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 She has a large irregular ulceration on the left lower extremity which is related to her venous disease. The patient has demonstrated slow but progressive improvement. She presented recently with a new ulceration on the right lateral calf. The etiology of this new ulceration is uncertain. There was noted to be a large amount of bioburden and nonviable tissue. Swab cultures were obtained for both aerobic and anaerobic growth. The results revealed Staphylococcus aureus, very rare in amount. This was thought likely to be a contaminant or skin lisette. We are to continue leg elevation, avoidance of idle standing and sitting, compression by means of SurePress, active lifestyle, weight control measures, etc. she is also to continue using mechanical pneumatic compression pumps 2-3 times daily bilaterally. She is to continue to take a well-balanced, nutritious diet. Plan: We are to continue with conservative measures. These measures are to include leg elevation. She is to continue sleeping on a flat mattress at night. Her legs are to be elevated to heart level, or higher, even during daytime hours. Leg elevation has been recommended as much as possible. The patient is to avoid prolonged idle sitting. Activity has been encouraged. We are to transition to the use of one quarter strength Dakin's solution topically on the ulceration of the left calf. We will use this short-term, to determine whether this provides any clinical benefit over the regimen which we have used recently. XtraSorb will continue to be used for control of exudative drainage. We are to continue the use of collagenase Santyl topically to the ulceration on the right lateral calf. Collagenase Santyl has been obtained, and will be continued relative to the right lateral calf ulceration. Because these topical preparations require daily application, we are to use SurePress compression wraps on a daily basis, which will be applied with the assistance of the patient's family. The patient is to continue the use of mechanical compression pumps. The mechanical pneumatic compression pumps are to be used twice or 3 times daily. In general, it appears as though the patient's level of compliance has been less than optimal in the past. According to the patient's , the patient has become increasingly more difficult to manage in the home setting, due to her Alzheimer's dementia, which is a major component in her noncompliance. Because the patient's recent culture demonstrates very rare Staphylococcus aureus, this may represent a contaminant, and may not be clinically significant. Thus, we are to refrain from initiating antibiotic coverage. However, we will continue to monitor the patient's wounds closely for signs of bacterial infection. Patient is to continue the use of Vasculera orally on a daily basis. Nutritional optimization has been recommended. The patient will return for reevaluation in 1 week. Patient weight is 160 pounds. Patient is 5 feet 9 inches tall. BMI is 23.6. BMI is reasonable. The patient is not a smoker. Influenza vaccine was not administered.
--- NOTE | 2019-09-19 14:26 | PCM.WC.HP ---
(1) Chronic venous hypertension with inflammation involving left side Status: Chronic Code(s): I87.322 - Chronic venous hypertension (idiopathic) with inflammation of left lower extremity (2) Left leg swelling Status: Chronic Code(s): M79.89 - Other specified soft tissue disorders (3) Varicose veins with ulcer and inflammation Status: Chronic Code(s): I83.209 - Varicose veins of unspecified lower extremity with both ulcer of unspecified site and inflammation; L97.909 - Non-pressure chronic ulcer of unspecified part of unspecified lower leg with unspecified severity (4) Leg edema, left Status: Chronic Code(s): R60.0 - Localized edema (5) History of DVT (deep vein thrombosis) Status: Chronic Code(s): Z86.718 - Personal history of other venous thrombosis and embolism Comment: left lower ext (6) Chronic venous insufficiency Status: Chronic (7) Lymphedema of left leg Status: Chronic Code(s): I89.0 - Lymphedema, not elsewhere classified (8) 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 Status: Chronic Code(s): I87.039 - Postthrombotic syndrome with ulcer and inflammation of unspecified lower extremity (9) Calf ulcer Status: Chronic Qualifiers: Laterality: left Code(s): L97.209 - Non-pressure chronic ulcer of unspecified calf with unspecified severity (10) chronic left lower ext wound Status: Chronic (11) Ulcer of right calf Status: Chronic Qualifiers: Non-pressure ulcer stage: with fat layer exposed Code(s): L97.219 - Non-pressure chronic ulcer of right calf with unspecified severity (12) Right leg swelling Status: Chronic Code(s): M79.89 - Other specified soft tissue disorders (13) Leg edema, right Status: Chronic Code(s): R60.0 - Localized edema History of Present Illness Date of Service: 09/19/19 Chief Complaint: Chronic venous insufficiency, chronic venous hypertension with inflammation and ulceration, varicose veins with inflammation and ulceration, post phlebitic syndrome with inflammation and ulceration,leg swelling, leg edema, lymphedema, venous stasis ulceration-left lower extremity History of Wound: This is a 79-year-old white female with a long-standing history of chronic venous disease and swelling in her left lower extremity. This has been present for many years. She has a large ulceration located between her left knee and ankle, which is quite large and irregular in shape, and also highly exudative. 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 She has also previously undergone successful endovenous laser ablation of the left great and small saphenous veins. Healing of the patient's left lower extremity ulceration has been slow, but progressive. A number of healing measures have been implemented in the past, without success. We are currently using Silvadene topically and Xtrasorb for absorption of exudate. 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 (Chronic) Calf ulcer (Chronic) chronic left lower ext wound (Chronic) Surgical History: appendectomy, hysterectomy Allergies/Adverse Reactions: Allergies Latex, Natural Rubber Allergy (Verified 07/12/13 11:34) Rash Sulfa (Sulfonamide Antibiotics) Allergy (Verified 07/12/13 11:34) Hives trimethoprim Allergy (Verified 07/12/13 11:34) Hives Home Medications: Ambulatory Orders Medication Instructions Recorded Aspirin [Aspirin, Baby] 81 mg PO DAILY@0800 07/12/13 Calcium Carb/Vitamin D [Os-Mo 1 tablet PO DAILY@0800 07/12/13 500MG + D] Clopidogrel Bisulfate [Plavix] 75 mg PO DAILY 07/12/13 Doxepin HCl [Sinequan] 100 mg PO BID 07/12/13 Doxycycline Monohydrate [Monodox] 100 mg PO BID 07/12/13 Glasgow-3 Fatty Acids/Fish Oil [Fish 1 each PO DAILY 07/12/13 Oil 1,000 mg Softgel] Vitamin B12 500 mg PO DAILY 07/12/13 Vitamin C 500 mg PO DAILY 07/12/13 proMETHazine soln (6.25mg/5mL) 5 ml PO Q4H PRN PRN 07/12/13 [Phenergan Plain] Prednisone [PredniSONE] 200 mg PO DAILY 07/03/14 Valacyclovir HCl [Valacyclovir] 500 mg PO DAILY 07/03/14 Smoking Status: Never smoker Tobacco Use: Non-smoker Review of Systems Constitutional: Denies: Chills, Fever, Weight Change Eyes: Denies: Pain, Vision Change HEENT: Denies: Difficulty Hearing, Difficulty Swallowing, Sinus Congestion Cardiovascular: Denies: Chest Pain, Palpitations Respiratory: Denies: Cough, Shortness of Breath Gastrointestinal: Denies: Diarrhea, Nausea, Vomiting Genitourinary: Denies: Dysuria, Hematuria Endocrine: Denies: Heat/ Cold Intolerance, Polydipsia, Polyuria Hematologic/ Lymphatic: Denies: Easy Bruising, Easy Bleeding - Physical Exam Vital Signs Temp Pulse Resp BP 97.5 F L 78 16 131/64 H 09/06/19 12:19 09/06/19 12:19 09/06/19 12:19 09/06/19 12:19 General: Alert, Oriented x3, Cooperative, No apparent distress, Well developed, Well nourished HEENT: Atraumatic, PERRLA, EOMI, Normocephalic Oral: Moist Mucosa Neck: No JVD Lungs: Normal air movement Abdomen: Non-Distended Extremities: No clubbing, No cyanosis, No Calf Tenderness, - - The ulceration on the left calf persists. It is essentially circumferential, with numerous skin bridges and islands of epithelialization. There is a moderate amount of bioburden and nonviable tissue. There is no sign of infection or cellulitis. The ulceration on the right lateral calf persists as well, little changed in size or appearance. There is a small amount of surrounding erythema. There is a moderate amount of bioburden. Dimensions are documented elsewhere. Swab cultures were obtained for both aerobic and anaerobic growth related to the right calf ulceration. Musculoskeletal: No Muscle Wasting Neurological: Cranial nerves II-XII grossly intact, Neuro grossly intact Psych/Mental Status: Normal Affect, Appropriate, Alert and oriented to time, place, person, mood and affect Debridement Note Post-Debridement Measurements/Treatment WC - Nurse 2 - General Ulcer CM Notes Start: 08/23/19 11:57 Freq: Status: Active Protocol: Activity Type Activity Date Activity User E-Sign Co-Sign Detail Recorded Client Recorded Date Recorded By Document 08/23/19 12:33 [id number] 08/23/19 12:45 MD Document 08/30/19 12:24 [id number] 08/30/19 12:41 MD Document 09/06/19 12:52 JF [id number] 09/06/19 12:59 JF 08/23/19 08/30/19 09/06/19 12:33 12:24 12:52 Wound Center Nurse 2 #6- R LAT DICKENS -Time 12:33 12:31 12:53 -Correct Patient Yes Yes Yes -Correct Side, Site, Position Yes Yes Yes -Correct Procedure Yes Yes Yes -Procedure Performed Yes Yes Yes -Type of Procedure Debridement Debridement Debridement -Clinical Debridement Subcutaneous Subcutaneous Subcutaneous -Post Debridement Size (cm) - Length 2 2.2 2.4 -Post Debridement Size (cm) - Width 1.5 1.9 2.2 -Post Debridement Size (cm) - Depth 0.2 0.1 0.3 -Total Square Cm 3.0 4.18 5.28 -Wound/Ulcer Outcome Not Healed Failed Graft Not Healed -Ulcer Cleansing Rinsed/ Rinsed/ Rinsed/ Irrigated with Irrigated with Irrigated with Saline Saline Saline -Foul Odor after Cleansing No No No -Bioengineered Tissue No No No -Bleeding Controlled with Pressure Pressure Pressure -Offloading Yes Yes No -Treatment Response Procedure Procedure Procedure Tolerated Well Tolerated Well Tolerated Well #5 LLE- Circumfrential -Time 12:34 12:33 12:53 -Correct Patient Yes Yes Yes -Correct Side, Site, Position Yes Yes Yes -Correct Procedure Yes Yes Yes -Procedure Performed Yes Yes Yes -Type of Procedure Debridement Debridement Debridement -Clinical Debridement Subcutaneous Subcutaneous Subcutaneous -Post Debridement Size (cm) - Length 11.5 13.4 14.2 -Post Debridement Size (cm) - Width 15 17.2 25.6 -Post Debridement Size (cm) - Depth 0.1 0.1 0.2 -Total Square Cm 172.5 230.48 363.52 -Wound/Ulcer Outcome Not Healed Failed Flap Not Healed -Ulcer Cleansing Rinsed/ Rinsed/ Rinsed/ Irrigated with Irrigated with Irrigated with Saline Saline Saline -Foul Odor after Cleansing No No No -Bioengineered Tissue No No No -Bleeding Controlled with Pressure Pressure Pressure -Offloading Yes Yes No -Treatment Response Procedure Procedure Tolerated Well Tolerated Well Pain Scale: 0-10 Numeric Is Patient Pain Free? Yes Yes Laterality: Right - Lateral calf Type of Debridement: Excisional debridement Anesthesia Used: 5% Lidocaine Gel Depth: Down to and including healthy tissue, in the subcutaneous layer Percentage of wound debrided: 100 Instrument Used: 5mm curette Tissue Removed: Bioburden and nonviable tissue Severity: Fat Layer Exposed Amount of bleeding with debridement: Mild Bleeding Controlled with: Compression and gauze Patient tolerated procedure well Cultures were obtained by swab, for both aerobic and anaerobic growth. - Additional Wound Laterality: Left Type of Debridement: Excisional debridement Anesthesia Used: 5% Lidocaine Gel Depth: Down to and including healthy tissue, in the subcutaneous layer Percentage of wound debrided: 100 Instrument Used: 5mm curette Tissue Removed: Bioburden and nonviable tissue Severity: Fat Layer Exposed Amount of bleeding with debridement: Mild Bleeding Controlled with: Compression and gauze Patient tolerated procedure: Patient tolerated procedure well Assessment/Plan Assessment: This is a 79-year-old white female with chronic venous insufficiency, chronic venous hypertension with inflammation and ulceration, varicose veins with inflammation and ulceration, post-phlebitic syndrome with inflammation and ulceration, and left lower extremity swelling and edema and lymphedema. She has a large irregular ulceration on the left lower extremity which is related to her venous disease. The patient has demonstrated slow but progressive improvement. She presented recently with a new ulceration on the right lateral calf. The etiology of this new ulceration is uncertain. There is noted to be a large amount of bioburden and nonviable tissue. Swab cultures were obtained for both aerobic and anaerobic growth. The results revealed Staphylococcus aureus, very rare in amount. This was thought likely to be a contaminant or skin lisette. We are to continue leg elevation, avoidance of idle standing and sitting, compression by means of SurePress, active lifestyle, weight control measures, etc. She is also to continue using mechanical pneumatic compression pumps 2-3 times daily bilaterally. She is to continue to take a well-balanced, nutritious diet. Plan: We are to continue with conservative measures. These measures are to include leg elevation. She is to continue sleeping on a flat mattress at night. Her legs are to be elevated to heart level, or higher, even during daytime hours. Leg elevation has been recommended as much as possible. The patient is to avoid prolonged idle sitting. Activity has been encouraged. We are to transition to the use of one quarter strength Dakin's solution (0.125%) topically on the ulceration of the left calf. We will use this short-term, to determine whether this provides any clinical benefit over the regimen which we have used recently. XtraSorb will continue to be used for control of exudative drainage. We are to continue the use of collagenase Santyl topically to the ulceration on the right lateral calf. Collagenase Santyl has been obtained, and will be continued relative to the right lateral calf ulceration. Because these topical preparations require daily application, we are to use SurePress compression wraps on a daily basis, which will be applied with the assistance of the patient's family. The patient is to continue the use of mechanical compression pumps. The mechanical pneumatic compression pumps are to be used twice or 3 times daily. In general, it appears as though the patient's level of compliance has been less than optimal in the past. According to the patient's , the patient has become increasingly more difficult to manage in the home setting, due to her Alzheimer's dementia, which is a major component in her noncompliance. We are to await the results of cultures which were obtained today by swab, for both aerobic and anaerobic growth. Patient is to continue the use of Vasculera orally on a daily basis. Nutritional optimization has been recommended. The patient will return for reevaluation in 1 week. Patient weight is 160 pounds. Patient is 5 feet 9 inches tall. BMI is 23.6. BMI is reasonable. The patient is not a smoker. Influenza vaccine was not administered.
== END 2019-09-10 23:59 ==
LOC: WC 12:00
PROVIDERS: Referring Provider Surgery; Visit Provider Surgery
DX: I83.222 Varicose veins of left lower extremity with both ulcer of calf and inflammation (principal); L97.222 Non-pressure chronic ulcer of left calf with fat layer exposed; R60.0 Localized edema; M79.89 Other specified soft tissue disorders; I89.0 Lymphedema, not elsewhere classified; Z86.718 Personal history of other venous thrombosis and embolism; Z79.899 Other long term (current) drug therapy; Z79.82 Long term (current) use of aspirin; Z79.52 Long term (current) use of systemic steroids; L97.212 Non-pressure chronic ulcer of right calf with fat layer exposed
CPT/HCPCS: 11042; 11045; 29581; 87070; 87075; 87077; 87186; 87205

== ENCOUNTER → 2019-09-20 15:25 | Outpatient (CLI) | payer MEDICARE, BC, SELFPAY | PROVIDERS: Referring Provider Surgery; Visit Provider Surgery | DX: L97.919 Non-pressure chronic ulcer of unspecified part of right lower leg with unspecified severity (principal) | CPT/HCPCS: 87070; 87075; 87077; 87186; 87205 ==

== ENCOUNTER → 2019-09-26 14:15 | Outpatient (CLI) | payer MEDICARE, BC, SELFPAY ==
--- NOTE | 2019-09-26 | UL_PTH ---
PATIENT: QUENTIN FELDMAN LOC: [facility] U#:[id number] AGE/SX: 85/F ROOM: RE09/26/[address]: Dr. 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 See comment. AM:zulay 10/11/19 COMMENT Features of pyoderma gangrenosum are not specific and usually a diagnosis of exclusion. Special stains for fungal organisms and acid fast bacilli are negative. The findings are not specific. They represent reactive changes secondary to long-term venous stasis. This case was reviewed in consultation with Dr. Santos of [facility]. Please see his complete consultative report in patient's EMR. This case was discussed with Dr. Pittman on 10/07/19. MICROSCOPIC DESCRIPTION Slides are reviewed. GROSS DESCRIPTION Received in fixative is one container labeled with the patient's name and designated lateral right lower extremity x2. The specimen consists of two kunz punch biopsies of skin with average lengths of 0.5 mm and average diameters of 0.5 mm. The fragments are inked and totally submitted in one cassette. / AM:zulay 09/27/19 TC:3 CPT: 65447, 26295 x2
== END ==
PROVIDERS: Visit Provider Surgery
DX: L97.219 Non-pressure chronic ulcer of right calf with unspecified severity (principal)
CPT/HCPCS: 88304; 88305; 88312; 88325

== ENCOUNTER 2019-10-11 11:30 | Outpatient (RCR) | payer MEDICARE, BC, SELFPAY ==
[2019-09-11 00:27] VITALS: BP 131/64; PULSE 78; RESP 16; TEMP 36.4
[2019-09-12 13:47] VITALS: BP 144/68; PULSE 74; RESP 16; TEMP 36.8
--- NOTE | 2019-09-12 14:41 | HP.PCM_ITS ---
(1) Ulcer of right calf Status: Chronic Current Visit: Yes Qualifiers: Non-pressure ulcer stage: with fat layer exposed Code(s): L97.219 - Non-pressure chronic ulcer of right calf with unspecified severity (2) Right leg swelling Status: Chronic Current Visit: Yes Code(s): M79.89 - Other specified soft tissue disorders (3) Leg edema, right Status: Chronic Current Visit: Yes Code(s): R60.0 - Localized edema (4) Chronic venous hypertension with inflammation involving left side Status: Chronic Current Visit: Yes Code(s): I87.322 - Chronic venous hypertension (idiopathic) with inflammation of left lower extremity (5) Left leg swelling Status: Chronic Current Visit: Yes Code(s): M79.89 - Other specified soft tissue disorders (6) Varicose veins with ulcer and inflammation Status: Chronic Current Visit: Yes Code(s): I83.209 - Varicose veins of unspecified lower extremity with both ulcer of unspecified site and inflammation; L97.909 - Non-pressure chronic ulcer of unspecified part of unspecified lower leg with unspecified severity (7) Leg edema, left Status: Chronic Current Visit: Yes Code(s): R60.0 - Localized edema (8) History of DVT (deep vein thrombosis) Status: Chronic Current Visit: Yes Code(s): Z86.718 - Personal history of other venous thrombosis and embolism Comment: left lower ext (9) Chronic venous insufficiency Status: Chronic Current Visit: Yes (10) Lymphedema of left leg Status: Chronic Current Visit: Yes Code(s): I89.0 - Lymphedema, not elsewhere classified (11) 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 Status: Chronic Current Visit: Yes Code(s): I87.039 - Postthrombotic syndrome with ulcer and inflammation of unspecified lower extremity (12) Calf ulcer Status: Chronic Current Visit: Yes Qualifiers: Laterality: left Code(s): L97.209 - Non-pressure chronic ulcer of unspecified calf with unspecified severity (13) chronic left lower ext wound Status: Chronic Current Visit: Yes History of Present Illness Date of Service: 09/12/19 Chief Complaint: Chronic venous insufficiency, chronic venous hypertension with inflammation and ulceration, varicose veins with inflammation and ulceration, post phlebitic syndrome with inflammation and ulceration,leg swelling, leg edema, lymphedema, venous stasis ulceration-left lower extremity History of Wound: This is a 79-year-old white female with a long-standing history of chronic venous disease and swelling in her left lower extremity. This has been present for many years. She has a large ulceration located between her left knee and ankle, which is quite large and irregular in shape, and also highly exudative. 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 She has also previously undergone succe ssful endovenous laser ablation of the left great and small saphenous veins. Healing of the patient's left lower extremity ulceration has been slow, but progressive. A number of healing measures have been implemented in the past, without success. We are currently using Silvadene topically and Xtrasorb for absorption of exudate. 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 (Chronic) Calf ulcer (Chronic) chronic left lower ext wound (Chronic) Surgical History: appendectomy, hysterectomy Allergies/Adverse Reactions: Allergies Latex, Natural Rubber Allergy (Verified 07/12/13 11:34) Rash Sulfa (Sulfonamide Antibiotics) Allergy (Verified 07/12/13 11:34) Hives trimethoprim Allergy (Verified 07/12/13 11:34) Hives Home Medications: Ambulatory Orders Medication Instructions Recorded Aspirin [Aspirin, Baby] 81 mg PO DAILY@0800 07/12/13 Calcium Carb/Vitamin D [Os-Mo 1 tablet PO DAILY@0800 07/12/13 500MG + D] Clopidogrel Bisulfate [Plavix] 75 mg PO DAILY 07/12/13 Doxepin HCl [Sinequan] 100 mg PO BID 07/12/13 Doxycycline Monohydrate [Monodox] 100 mg PO BID 07/12/13 [place]-3 Fatty Acids/Fish Oil [Fish 1 each PO DAILY 07/12/13 Oil 1,000 mg Softgel] Vitamin B12 500 mg PO DAILY 07/12/13 Vitamin C 500 mg PO DAILY 07/12/13 proMETHazine soln (6.25mg/5mL) 5 ml PO Q4H PRN PRN 07/12/13 [Phenergan Plain] Prednisone [PredniSONE] 200 mg PO DAILY 07/03/14 Valacyclovir HCl [Valacyclovir] 500 mg PO DAILY 07/03/14 Smoking Status: Never smoker Tobacco Use: Non-smoker Review of Systems Constitutional: Denies: Chills, Fever, Weight Change Eyes: Denies: Pain, Vision Change HEENT: Denies: Difficulty Hearing, Difficulty Swallowing, Sinus Congestion Cardiovascular: Denies: Chest Pain, Palpitations Respiratory: Denies: Cough, Shortness of Breath Gastrointestinal: Denies: Diarrhea, Nausea, Vomiting Genitourinary: Denies: Dysuria, Hematuria Endocrine: Denies: Heat/ Cold Intolerance, Polydipsia, Polyuria Hematologic/ Lymphatic: Denies: Easy Bruising, Easy Bleeding - Physical Exam Vital Signs Temp Pulse Resp BP 98.2 F 74 16 144/68 H 09/12/19 13:47 09/12/19 13:47 09/12/19 13:47 09/12/19 13:47 General: Alert, Oriented x3, Cooperative, No apparent distress, Well developed, Well nourished HEENT: Atraumatic, PERRLA, EOMI, Normocephalic Oral: Moist Mucosa Neck: No JVD Lungs: Normal air movement Abdomen: Non-Distended Extremities: No clubbing, No cyanosis, No Calf Tenderness, - - The right lower extremity demonstrates only minimal swelling and edema. The ulceration on the anterolateral aspect of the right calf persists. There is a large amount of bioburden and nonviable tissue. There is no obvious sign of infection. Dimensions are documented elsewhere. Significant swelling and edema persist in the left lower extremity, most notable on the dorsum of the left foot. The left calf ulceration persists. It is quite large. Dimensions are documented elsewhere. The ulceration is irregular in shape. There is a large amount of bioburden and nonviable tissue. There is no obvious sign of infection or cellulitis. Skin: No rashes Wound Measurements and Assessment WC - Nurse 1 - General Ulcer Measurement Start: 09/12/19 13:47 Freq: Status: Active Protocol: Activity Type Activity Date Activity User E-Sign Co-Sign Detail Recorded Client Recorded Date Recorded By Document 09/12/19 13:47 TANYA [id number] 09/12/19 13:55 TANYA 09/12/19 13:47 Wound Center Nurse 1 [Ulcer Assessment] #6- R LAT DICKENS -Combined with other wound No -Current Size (cm) - Length 2.2 -Current Size (cm) - Width 2.0 -Current Size (cm) - Depth 0.2 -Total Square Cm 4.40 -Photo Taken No -Epithelialization Small 1-33% -Tunneling No -Undermining/Tunneling No -Circular Undermining No -Exudate Amt Small -Exudate Type Serosanguineous -Wound Margin Flat & Intact -Granulation Amt None Present (0 %) -Slough/Fibrin Yes -Necrosis Amt Large (67-100%) -Necrotic Tissue Type Adherent Slough -Structure Exposed N/A -Texture (Nahomy-wound Skin Appearance) Assessed, Localized Edema -Moisture (Nahomy-wound Skin Appearance Assessed,Dry/ ) Scaly -Color (Nahomy-wound Skin Appearance) Assessed -Temperature (Nahomy-wound Skin No Abnormality Appearance) (Pt Warm) -Tenderness on Palpation (Nahomy-wound No Skin Appearance) -Ulcer Cleansing Wound Cleanser -Foul Odor after Cleansing No -Anesthetic Used 4% Lidocaine Solution #5 LLE- Circumfrential -Combined with other wound No -Current Size (cm) - Length 14 -Current Size (cm) - Width 24 -Current Size (cm) - Depth 0.2 -Total Square Cm 336 -Photo Taken No -Epithelialization Small 1-33% -Tunneling No -Undermining/Tunneling No -Circular Undermining No -Exudate Amt Large -Exudate Type Serosanguineous -Wound Margin Flat & Intact -Granulation Amt Medium (34-66%) -Granulation Quality Red -Slough/Fibrin Yes -Necrosis Amt Medium (34-66%) -Necrotic Tissue Type Adherent Slough -Structure Exposed N/A -Texture (Nahomy-wound Skin Appearance) Assessed, Localized Edema ,Scarring -Moisture (Nahomy-wound Skin Appearance Assessed,Dry/ ) Scaly -Color (Nahomy-wound Skin Appearance) Assessed -Temperature (Nahomy-wound Skin No Abnormality Appearance) (Pt Warm) -Tenderness on Palpation (Nahomy-wound No Skin Appearance) -Ulcer Cleansing Wound Cleanser -Foul Odor after Cleansing No -Anesthetic Used 4% Lidocaine Solution [Edema Assessment] -Lower Limb Edema Present Yes -Right Calf (cm) 42.2 -Right Ankle (cm) 25.2 -Left Calf (cm) 34.5 -Left Ankle (cm) 23.5 ANNA - Nurse 2 - General Ulcer CM Notes Start: 09/12/19 13:47 Freq: Status: Active Protocol: Activity Type Activity Date Activity User E-Sign Co-Sign Detail Recorded Client Recorded Date Recorded By Document 09/12/19 14:28 DV [id number] 09/12/19 14:37 DV 09/12/19 14:28 Wound Center Nurse 2 [Procedure/Treatment] #6- R LAT DICKENS -Time 14:29 -Correct Patient Yes -Correct Side, Site, Position Yes -Correct Procedure Yes -Procedure Performed Yes -Type of Procedure Debridement -Clinical Debridement Subcutaneous -Post Debridement Size (cm) - Length 2.4 -Post Debridement Size (cm) - Width 2.0 -Post Debridement Size (cm) - Depth 0.2 -Total Square Cm 4.80 -Wound/Ulcer Outcome Not Healed -Ulcer Cleansing Rinsed/ Irrigated with Saline -Foul Odor after Cleansing No -Bioengineered Tissue No -Bleeding Controlled with Pressure -Offloading No -Treatment Response Procedure Tolerated Well #5 LLE- Circumfrential -Time 14:31 -Correct Patient Yes -Correct Side, Site, Position Yes -Correct Procedure Yes -Procedure Performed Yes -Type of Procedure Debridement -Clinical Debridement Subcutaneous -Post Debridement Size (cm) - Length 14.5 -Post Debridement Size (cm) - Width 23.9 -Post Debridement Size (cm) - Depth 0.2 -Total Square Cm 346.55 -Wound/Ulcer Outcome Not Healed -Ulcer Cleansing Rinsed/ Irrigated with Saline -Foul Odor after Cleansing No -Bioengineered Tissue No -Bleeding Controlled with Pressure -Offloading Yes -Treatment Response Procedure Tolerated Well [See Physician Procedure note for Specifics] Pain Scale: 0-10 Numeric [Pain] -Is Patient Pain Free? Yes Musculoskeletal: No Muscle Wasting Neurological: Cranial nerves II-XII grossly intact, Neuro grossly intact Psych/Mental Status: Normal Affect, Appropriate, Alert and oriented to time, place, person, mood and affect Debridement Note Post-Debridement Measurements/Treatment WC - Nurse 2 - General Ulcer CM Notes Start: 09/12/19 13:47 Freq: Status: Active Protocol: Activity Type Activity Date Activity User E-Sign Co-Sign Detail Recorded Client Recorded Date Recorded By Document 09/12/19 14:28 DV [id number] 09/12/19 14:37 DV 09/12/19 14:28 Wound Center Nurse 2 #6- R LAT DICKENS -Time 14:29 -Correct Patient Yes -Correct Side, Site, Position Yes -Correct Procedure Yes -Procedure Performed Yes -Type of Procedure Debridement -Clinical Debridement Subcutaneous -Post Debridement Size (cm) - Length 2.4 -Post Debridement Size (cm) - Width 2.0 -Post Debridement Size (cm) - Depth 0.2 -Total Square Cm 4.80 -Wound/Ulcer Outcome Not Healed -Ulcer Cleansing Rinsed/ Irrigated with Saline -Foul Odor after Cleansing No -Bioengineered Tissue No -Bleeding Controlled with Pressure -Offloading No -Treatment Response Procedure Tolerated Well #5 LLE- Circumfrential -Time 14:31 -Correct Patient Yes -Correct Side, Site, Position Yes -Correct Procedure Yes -Procedure Performed Yes -Type of Procedure Debridement -Clinical Debridement Subcutaneous -Post Debridement Size (cm) - Length 14.5 -Post Debridement Size (cm) - Width 23.9 -Post Debridement Size (cm) - Depth 0.2 -Total Square Cm 346.55 -Wound/Ulcer Outcome Not Healed -Ulcer Cleansing Rinsed/ Irrigated with Saline -Foul Odor after Cleansing No -Bioengineered Tissue No -Bleeding Controlled with Pressure -Offloading Yes -Treatment Response Procedure Tolerated Well Pain Scale: 0-10 Numeric Is Patient Pain Free? Yes Laterality: Left - Calf Type of Debridement: Excisional debridement Anesthesia Used: 5% Lidocaine Gel Depth: Down to and including healthy tissue, in the subcutaneous layer Percentage of wound debrided: 100 Instrument Used: 5mm curette Tissue Removed: Bioburden and nonviable tissue Severity: Fat Layer Exposed Amount of bleeding with debridement: Mild Bleeding Controlled with: Compression and gauze Patient tolerated procedure well - Additional Wound Laterality: Right - Anterolateral calf Type of Debridement: Excisional debridement Anesthesia Used: 5% Lidocaine Gel Depth: Down to and including healthy tissue, in the subcutaneous layer Percentage of wound debrided: 100 Instrument Used: 5mm curette Tissue Removed: Bioburden and nonviable tissue Severity: Fat Layer Exposed Amount of bleeding with debridement: Mild Bleeding Controlled with: Compression and gauze Patient tolerated procedure: Patient tolerated procedure well Assessment/Plan Active Problems Ulcer of right calf (Chronic) Right leg swelling (Chronic) Leg edema, right (Chronic) Chronic venous hypertension with inflammation involving left side (Chronic) Left leg swelling (Chronic) Varicose veins with ulcer and inflammation (Chronic) Leg edema, left (Chronic) History of DVT (deep vein thrombosis) (Chronic) left lower ext Chronic venous insufficiency (Chronic) Lymphedema of left leg (Chronic) 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 She has a large irregular ulceration on the left lower extremity which is related to her venous disease. The patient has demonstrated slow but progressive improvement. She presented recently with a new ulceration on the right lateral calf. The etiology of this new ulceration is uncertain. There is noted to be a large amount of bioburden and nonviable tissue. Swab cultures were obtained for both aerobic and anaerobic growth. The results revealed Staphylococcus aureus, very rare in amount. This was thought likely to be a contaminant or skin lisette. We are to continue leg elevation, avoidance of idle standing and sitting, compression by means of SurePress, active lifestyle, weight control measures, etc. She is also to continue using mechanical pneumatic compression pumps 2-3 times daily bilaterally. She is to continue to take a well-balanced, nutritious diet. Plan: We are to continue with conservative measures. These measures are to include leg elevation. She is to continue sleeping on a flat mattress at night. Her legs are to be elevated to heart level, or higher, even during daytime hours. Leg elevation has been recommended as much as possible. The patient is to avoid prolonged idle sitting. Activity has been encouraged. We are to transition to the use of one quarter strength Dakin's solution (0.125%) topically on the ulceration of the left calf. We will use this short-term, to determine whether this provides any clinical benefit over the regimen which we have used recently. XtraSorb will continue to be used for control of exudative drainage. We are to continue the use of collagenase Santyl topically to the ulceration on the right lateral calf. Collagenase Santyl has been obtained, and will be continued relative to the right lateral calf ulceration. Because these topical preparations require daily application, we are to use SurePress c ompression wraps on a daily basis, which will be applied with the assistance of the patient's family. The patient is to continue the use of mechanical compression pumps. The mechanical pneumatic compression pumps are to be used twice or 3 times daily. In general, it appears as though the patient's level of compliance has been less than optimal in the past. According to the patient's , the patient has become increasingly more difficult to manage in the home setting, due to her Alzheimer's dementia, which is a major component in her noncompliance. Because the patient's recent culture demonstrates very rare Staphylococcus aureus, this may represent a contaminant, and may not be clinically significant. Thus, we are to refrain from initiating antibiotic coverage. However, we will continue to monitor the patient's wounds closely for signs of bacterial infection. Patient is to continue the use of Vasculera orally on a daily basis. Nutritional optimization has been recommended. The patient will return for reevaluation in 1 week. Patient weight is 160 pounds. Patient is 5 feet 9 inches tall. BMI is 23.6. BMI is reasonable. The patient is not a smoker. Influenza vaccine was not administered.
[2019-09-19 13:41] VITALS: RESP 16; TEMP 36.4
[2019-09-26 13:28] VITALS: BP 147/70; PULSE 73; RESP 18; TEMP 36.4
--- NOTE | 2019-09-26 15:00 | HP.PCM_ITS ---
(1) Ulcer of right calf Status: Chronic Current Visit: No Qualifiers: Non-pressure ulcer stage: with fat layer exposed Code(s): L97.219 - Non-pressure chronic ulcer of right calf with unspecified severity (2) Right leg swelling Status: Chronic Current Visit: No Code(s): M79.89 - Other specified soft tissue disorders (3) Leg edema, right Status: Chronic Current Visit: No Code(s): R60.0 - Localized edema (4) Chronic venous hypertension with inflammation involving left side Status: Chronic Current Visit: No Code(s): I87.322 - Chronic venous hypertension (idiopathic) with inflammation of left lower extremity (5) Left leg swelling Status: Chronic Current Visit: No Code(s): M79.89 - Other specified soft tissue disorders (6) Varicose veins with ulcer and inflammation Status: Chronic Current Visit: No Code(s): I83.209 - Varicose veins of unspecified lower extremity with both ulcer of unspecified site and inflammation; L97.909 - Non-pressure chronic ulcer of unspecified part of unspecified lower leg with unspecified severity (7) Leg edema, left Status: Chronic Current Visit: No Code(s): R60.0 - Localized edema (8) History of DVT (deep vein thrombosis) Status: Chronic Current Visit: No Code(s): Z86.718 - Personal history of other venous thrombosis and embolism Comment: left lower ext (9) Chronic venous insufficiency Status: Chronic Current Visit: No (10) Lymphedema of left leg Status: Chronic Current Visit: No Code(s): I89.0 - Lymphedema, not elsewhere classified (11) 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 Status: Chronic Current Visit: No Code(s): I87.039 - Postthrombotic syndrome with ulcer and inflammation of unspecified lower extremity (12) Calf ulcer Status: Chronic Current Visit: No Qualifiers: Laterality: left Code(s): L97.209 - Non-pressure chronic ulcer of unspecified calf with unspecified severity (13) chronic left lower ext wound Status: Chronic Current Visit: No History of Present Illness Date of Service: 09/26/19 Chief Complaint: Chronic venous insufficiency, chronic venous hypertension with inflammation and ulceration, varicose veins with inflammation and ulceration, post phlebitic syndrome with inflammation and ulceration,leg swelling, leg edema, lymphedema, venous stasis ulceration-left lower extremity History of Wound: This is a 79-year-old white female with a long-standing history of chronic venous disease and swelling in her left lower extremity. This has been present for many years. She has a large ulceration located between her left knee and ankle, which is quite large and irregular in shape, and also highly exudative. 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 She has also previously undergone successful endovenous laser ablation of the left great and small saphenous veins. Healing of the patient's left lower extremity ulceration has been slow, but progressive. A number of healing measures have been implemented in the past, without success. We are currently using Silvadene topically and Xtrasorb for absorption of exudate. 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 (Chronic) Calf ulcer (Chronic) chronic left lower ext wound (Chronic) Surgical History: appendectomy, hysterectomy Allergies/Adverse Reactions: Allergies Latex, Natural Rubber Allergy (Verified 07/12/13 11:34) Rash Sulfa (Sulfonamide Antibiotics) Allergy (Verified 07/12/13 11:34) Hives trimethoprim Allergy (Verified 07/12/13 11:34) Hives Home Medications: Ambulatory Orders Medication Instructions Recorded Aspirin [Aspirin, Baby] 81 mg PO DAILY@0800 07/12/13 Calcium Carb/Vitamin D [Os-Mo 1 tablet PO DAILY@0800 07/12/13 500MG + D] Clopidogrel Bisulfate [Plavix] 75 mg PO DAILY 07/12/13 Doxepin HCl [Sinequan] 100 mg PO BID 07/12/13 Doxycycline Monohydrate [Monodox] 100 mg PO BID 07/12/13 [place]-3 Fatty Acids/Fish Oil [Fish 1 each PO DAILY 07/12/13 Oil 1,000 mg Softgel] Vitamin B12 500 mg PO DAILY 07/12/13 Vitamin C 500 mg PO DAILY 07/12/13 proMETHazine soln (6.25mg/5mL) 5 ml PO Q4H PRN PRN 07/12/13 [Phenergan Plain] Prednisone [PredniSONE] 200 mg PO DAILY 07/03/14 Valacyclovir HCl [Valacyclovir] 500 mg PO DAILY 07/03/14 Smoking Status: Never smoker Tobacco Use: Non-smoker Review of Systems Constitutional: Denies: Chills, Fever, Weight Change Eyes: Denies: Pain, Vision Change HEENT: Denies: Difficulty Hearing, Difficulty Swallowing, Sinus Congestion Cardiovascular: Denies: Chest Pain, Palpitations Respiratory: Denies: Cough, Shortness of Breath Gastrointestinal: Denies: Diarrhea, Nausea, Vomiting Genitourinary: Denies: Dysuria, Hematuria Endocrine: Denies: Heat/ Cold Intolerance, Polydipsia, Polyuria Hematologic/ Lymphatic: Denies: Easy Bruising, Easy Bleeding - Physical Exam Vital Signs Temp Pulse Resp BP 97.5 F L 73 18 147/70 H 09/26/19 13:28 09/26/19 13:28 09/26/19 13:28 09/26/19 13:28 General: Alert, Oriented x3, Cooperative, No apparent distress, Well developed, Well nourished HEENT: Atraumatic, PERRLA, EOMI, Normocephalic Oral: Moist Mucosa Neck: No JVD Lungs: Normal air movement Abdomen: Non-Distended Extremities: No clubbing, No cyanosis, No Calf Tenderness, - - The distal left lower extremity remains edematous. The swelling and edema is most notable on the dorsum of the left foot. This has been a chronic finding. The ulceration on the left calf persists as well. It is highly irregular in shape, with multiple skin bridges and areas of epithelialization. The open portion of the left calf ulceration demonstrates a moderate amount of bioburden and nonviable tissue. There is no sign of infection or cellulitis. Dimensions are documented elsewhere. The ulceration on the right lateral calf persists as well. It demonstrates a moderate amount of bioburden. Dimensions are documented elsewhere. Wound Measurements and Assessment WC - Nurse 1 - General Ulcer Measurement Start: 09/12/19 13:47 Freq: Status: Active Protocol: Activity Type Activity Date Activity User E-Sign Co-Sign Detail Recorded Client Recorded Date Recorded By Document 09/26/19 13:28 RB [id number] 09/26/19 13:47 RB 09/26/19 13:28 Wound Center Nurse 1 [Ulcer Assessment] #6- R LAT DICKENS -Combined with other wound No -Current Size (cm) - Length 2.4 -Current Size (cm) - Width 2.3 -Current Size (cm) - Depth 0.2 -Total Square Cm 5.52 -Tunneling No -Undermining/Tunneling No -Circular Undermining No -Exudate Amt Medium -Exudate Type Serosanguineous -Wound Margin Distinct, Outline Attached -Granulation Amt Medium (34-66%) -Granulation Quality [place] -Slough/Fibrin Yes -Necrosis Amt Medium (34-66%) -Necrotic Tissue Type Adherent Slough -Structure Exposed N/A -Texture (Nahomy-wound Skin Appearance) Assessed, Scarring -Moisture (Nahomy-wound Skin Appearance Assessed ) -Color (Nahomy-wound Skin Appearance) Assessed -Temperature (Nahomy-wound Skin No Abnormality Appearance) (Pt Warm) -Tenderness on Palpation (Nahomy-wound No Skin Appearance) -Ulcer Cleansing Wound Cleanser -Foul Odor after Cleansing No -Anesthetic Used 4% Lidocaine Solution #5 LLE- Circumfrential -Combined with other wound No -Current Size (cm) - Length 23 -Current Size (cm) - Width 14.5 -Current Size (cm) - Depth 0.2 -Total Square Cm 333.5 -Tunneling No -Undermining/Tunneling No -Circular Undermining No -Exudate Amt Large -Exudate Type Serosanguineous -Wound Margin Fibrotic Scar, Thickened Scar -Granulation Amt Medium (34-66%) -Granulation Quality [place] -Slough/Fibrin Yes -Necrosis Amt Medium (34-66%) -Necrotic Tissue Type Adherent Slough -Structure Exposed N/A -Texture (Nahomy-wound Skin Appearance) Assessed, Scarring -Moisture (Nahomy-wound Skin Appearance Assessed, ) Maceration -Color (Nahomy-wound Skin Appearance) Assessed -Temperature (Nahomy-wound Skin No Abnormality Appearance) (Pt Warm) -Tenderness on Palpation (Nahomy-wound No Skin Appearance) -Ulcer Cleansing Wound Cleanser -Foul Odor after Cleansing No -Anesthetic Used 4% Lidocaine Solution [Edema Assessment] -Lower Limb Edema Present Yes -Right Calf (cm) 36 -Right Ankle (cm) 23 -Left Calf (cm) 42.8 -Left Ankle (cm) 24.5 WC - Nurse 2 - General Ulcer CM Notes Start: 09/12/19 13:47 Freq: Status: Active Protocol: Activity Type Activity Date Activity User E-Sign Co-Sign Detail Recorded Client Recorded Date Recorded By Document 09/26/19 14:20 DV [id number] 09/26/19 14:51 DV 09/26/19 14:20 Wound Center Nurse 2 [Procedure/Treatment] #6- R LAT DICKENS -Time 14:21 -Correct Patient Yes -Correct Side, Site, Position Yes -Correct Procedure Yes -Procedure Performed Yes -Type of Procedure Debridement -Clinical Debridement Subcutaneous -Post Debridement Size (cm) - Length 2.5 -Post Debridement Size (cm) - Width 2.4 -Post Debridement Size (cm) - Depth 0.2 -Total Square Cm 6.00 -Wound/Ulcer Outcome Not Healed -Ulcer Cleansing Rinsed/ Irrigated with Saline -Foul Odor after Cleansing No -Bioengineered Tissue No -Bleeding Controlled with Pressure -Treatment Response Procedure Tolerated Well #5 LLE- Circumfrential -Time 14:34 -Correct Patient Yes -Correct Side, Site, Position Yes -Correct Procedure Yes -Procedure Performed Yes -Type of Procedure Debridement -Clinical Debridement Subcutaneous -Post Debridement Size (cm) - Length 23.2 -Post Debridement Size (cm) - Width 15.0 -Post Debridement Size (cm) - Depth 0.2 -Total Square Cm 348.00 -Wound/Ulcer Outcome Not Healed -Foul Odor after Cleansing No -Bioengineered Tissue No -Bleeding Controlled with Pressure -Offloading No -Treatment Response Procedure Tolerated Well [See Physician Procedure note for Specifics] Pain Scale: 0-10 Numeric [Pain] -Is Patient Pain Free? Yes Musculoskeletal: No Muscle Wasting Neurological: Cranial nerves II-XII grossly intact, Neuro grossly intact Psych/Mental Status: Normal Affect, Appropriate, - - The patient is alert and responsive. Debridement Note Post-Debridement Measurements/Treatment WC - Nurse 2 - General Ulcer CM Notes Start: 09/12/19 13:47 Freq: Status: Active Protocol: Activity Type Activity Date Activity User E-Sign Co-Sign Detail Recorded Client Recorded Date Recorded By Document 09/12/19 14:28 DV [id number] 09/12/19 14:37 DV Document 09/19/19 14:12 DV [id number] 09/19/19 14:18 DV Document 09/26/19 14:20 DV [id number] 09/26/19 14:51 DV 09/12/19 09/19/19 09/26/19 14:28 14:12 14:20 Wound Center Nurse 2 #6- R LAT DICKENS -Time 14:29 14:15 14:21 -Correct Patient Yes Yes Yes -Correct Side, Site, Position Yes Yes Yes -Correct Procedure Yes Yes Yes -Procedure Performed Yes Yes Yes -Type of Procedure Debridement Debridement Debridement -Clinical Debridement Subcutaneous Subcutaneous Subcutaneous -Post Debridement Size (cm) - Length 2.4 2.5 2.5 -Post Debridement Size (cm) - Width 2.0 2.5 2.4 -Post Debridement Size (cm) - Depth 0.2 0.3 0.2 -Total Square Cm 4.80 6.25 6.00 -Wound/Ulcer Outcome Not Healed Not Healed Not Healed -Ulcer Cleansing Rinsed/ Rinsed/ Rinsed/ Irrigated with Irrigated with Irrigated with Saline Saline Saline -Foul Odor after Cleansing No No No -Bioengineered Tissue No No No -Bleeding Controlled with Pressure Pressure Pressure -Offloading No No -Treatment Response Procedure Procedure Procedure Tolerated Well Tolerated Well Tolerated Well #5 LLE- Circumfrential -Time 14:31 14:16 14:34 -Correct Patient Yes Yes Yes -Correct Side, Site, Position Yes Yes Yes -Correct Procedure Yes Yes Yes -Procedure Performed Yes Yes Yes -Type of Procedure Debridement Debridement Debridement -Clinical Debridement Subcutaneous Subcutaneous Subcutaneous -Post Debridement Size (cm) - Length 14.5 14.2 23.2 -Post Debridement Size (cm) - Width 23.9 25.5 15.0 -Post Debridement Size (cm) - Depth 0.2 0.2 0.2 -Total Square Cm 346.55 362.10 348.00 -Wound/Ulcer Outcome Not Healed Converted Not Healed -Ulcer Cleansing Rinsed/ Rinsed/ Irrigated with Irrigated with Saline Saline -Foul Odor after Cleansing No No No -Bioengineered Tissue No No No -Bleeding Controlled with Pressure Pressure Pressure -Offloading Yes No No -Type of Offloading Camwalker -Treatment Response Procedure Procedure Procedure Tolerated Well Tolerated Well Tolerated Well Pain Scale: 0-10 Numeric Is Patient Pain Free? Yes Yes Yes Laterality: Right - Lateral calf Type of Debridement: Excisional debridement Anesthesia Used: 5% Lidocaine Gel Depth: Down to and including healthy tissue, in the subcutaneous layer Percentage of wound debrided: 100 Tissue Removed: Bioburden and nonviable tissue Severity: Fat Layer Exposed Amount of bleeding with debridement: Mild Bleeding Controlled with: Compression and gauze Patient tolerated procedure well The ulceration on the right lateral calf occurred spontaneously, for reasons unknown. Its etiology is somewhat uncertain. Therefore, the decision was made to proceed with a biopsy, anticipating that this may shed light on the underlying etiology, and may provide information referrable to the ulceration in the left lower extremity. The wound and periwound area were prepped with alcohol. Lidocaine 1% with epinephrine was then injected subcutaneously at the margin of the wound, located anteriorly at the 3 o'clock position. A 5 mm punch biopsy was then taken in 2 separate locations in this area. The base of the biopsy specimen was then transected using a cuticle scissors. The specimen was placed in formalin, to be sent to the pathology department for histological examination. Bleeding was easily controlled using manual pressure. The procedure was well-tolerated. - Additional Wound Laterality: Left - Calf Type of Debridement: Excisional debridement Anesthesia Used: 5% Lidocaine Gel Depth: Down to and including healthy tissue, in the subcutaneous layer Percentage of wound debrided: 100 Instrument Used: 5mm curette Tissue Removed: Bioburden and nonviable tissue Severity: Fat Layer Exposed Amount of bleeding with debridement: Mild Bleeding Controlled with: Compression and gauze Patient tolerated procedure: Patient tolerated procedure well Assessment/Plan Assessment: This is a 79-year-old white female with chronic venous insufficiency, chronic venous hypertension with inflammation and ulceration, varicose veins with inflammation and ulceration, post-phlebitic syndrome with inflammation and ulceration, and left lower extremity swelling and edema and lymphedema. She has a large irregular ulceration on the left lower extremity which is related to her venous disease. The patient has demonstrated slow but progressive improvement. She presented recently with a new ulceration on the right lateral calf. The etiology of this new ulceration is uncertain. There is noted to be a large amount of bioburden and nonviable tissue. Swab cultures were obtained for both aerobic and anaerobic growth. The results revealed Staphylococcus aureus, very rare in amount. This was thought likely to be a contaminant or skin lisette. However, a second such culture, several weeks later, has again reveal the growth of Staphylococcus aureus, rare in amount. Because of a second culture, positive for the same organism, and because of a relative failure to see progress related to this ulceration, we will place the patient on an oral antibiotic consistent with recent culture results. We are to continue leg elevation, avoidance of idle standing and sitting, compression by means of SurePress, active lifestyle, weight control measures, etc. She is also to continue using mechanical pneumatic compression pumps 2-3 times daily bilaterally. She is to continue to take a well-balanced, nutritious diet. Plan: We are to continue with conservative measures. These measures are to include leg elevation. She is to continue sleeping on a flat mattress at night. Her legs are to be elevated to heart level, or higher, even during daytime hours. Leg elevation has been recommended as much as possible. The patient is to avoid prolonged idle sitting. Activity has been encouraged. We are to continue the use of one quarter strength Dakin's solution (0.125%) topically on the ulceration of the left calf. This will be alternated every other day with Silvadene topically. There appears to have been some improvement in the appearance of the left calf ulceration since the initiation of Dakin's solution. XtraSorb will continue to be used for control of exudative drainage. We are to continue the use of collagenase Santyl topically to the ulceration on the right lateral calf. Because these topical preparations require daily application, we are to use SurePress compression wraps on a daily basis, which will be applied with the assistance of the patient's family. The patient is to continue the use of mechanical compression pumps. The mechanical pneumatic compression pumps are to be used twice or 3 times daily. In general, it appears as though the patient's level of compliance has been less than optimal in the past. According to the patient's , the patient has become increasingly more difficult to manage in the home setting, due to her Alzheimer's dementia, which is a major component in her noncompliance. We are to initiate a course of doxycycline 100 mg p.o. daily for 10 days, stop on recent culture results. A repeat prescription has been provided for Dilaudid 2 mg as needed, at the patient's request. We are to await the results of the biopsy with respect to the patient's right lateral calf ulceration. Patient is to continue the use of Vasculera orally on a daily basis. Nutritional optimization has been recommended. The patient will return for reevaluation in 1 week. Patient weight is 160 pounds. Patient is 5 feet 9 inches tall. BMI is 23.6. BMI is reasonable. The patient is not a smoker. Influenza vaccine was not administered.
[2019-10-03 13:24] VITALS: BP 150/83; PULSE 73; RESP 18
--- NOTE | 2019-10-03 14:16 | HP.PCM_ITS ---
(1) Ulcer of right calf Status: Chronic Current Visit: Yes Qualifiers: Non-pressure ulcer stage: with fat layer exposed Code(s): L97.219 - Non-pressure chronic ulcer of right calf with unspecified severity (2) Right leg swelling Status: Chronic Current Visit: Yes Code(s): M79.89 - Other specified soft tissue disorders (3) Leg edema, right Status: Chronic Current Visit: Yes Code(s): R60.0 - Localized edema (4) Chronic venous hypertension with inflammation involving left side Status: Chronic Current Visit: Yes Code(s): I87.322 - Chronic venous hypertension (idiopathic) with inflammation of left lower extremity (5) Left leg swelling Status: Chronic Current Visit: Yes Code(s): M79.89 - Other specified soft tissue disorders (6) Varicose veins with ulcer and inflammation Status: Chronic Current Visit: Yes Code(s): I83.209 - Varicose veins of unspecified lower extremity with both ulcer of unspecified site and inflammation; L97.909 - Non-pressure chronic ulcer of unspecified part of unspecified lower leg with unspecified severity (7) Leg edema, left Status: Chronic Current Visit: Yes Code(s): R60.0 - Localized edema (8) History of DVT (deep vein thrombosis) Status: Chronic Current Visit: Yes Code(s): Z86.718 - Personal history of other venous thrombosis and embolism Comment: left lower ext (9) Chronic venous insufficiency Status: Chronic Current Visit: Yes (10) Lymphedema of left leg Status: Chronic Current Visit: Yes Code(s): I89.0 - Lymphedema, not elsewhere classified (11) 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 Status: Chronic Current Visit: Yes Code(s): I87.039 - Postthrombotic syndrome with ulcer and inflammation of unspecified lower extremity (12) Calf ulcer Status: Chronic Current Visit: Yes Qualifiers: Laterality: left Non-pressure ulcer stage: with fat layer exposed Qualified Code(s): L97.222 - Non-pressure chronic ulcer of left calf with fat layer exposed Code(s): L97.209 - Non-pressure chronic ulcer of unspecified calf with unspecified severity (13) chronic left lower ext wound Status: Chronic Current Visit: Yes History of Present Illness Date of Service: 10/03/19 Chief Complaint: Chronic venous insufficiency, chronic venous hypertension with inflammation and ulceration, varicose veins with inflammation and ulceration, post phlebitic syndrome with inflammation and ulceration,leg swelling, leg edema, lymphedema, venous stasis ulceration-left lower extremity History of Wound: This is a 79-year-old white female with a long-standing history of chronic venous disease and swelling in her left lower extremity. This has been present for many years. She has a large ulceration located between her left knee and ankle, which is quite large and irregular in shape, and also highly exudative. 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 She has also previously undergone successful endovenous laser ablation of the left great and small saphenous veins. Healing of the patient's left lower extremity ulceration has been slow, but progressive. A number of healing measures have been implemented in the past, without success. We are currently using Silvadene topically and Xtrasorb for absorption of exudate. 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 (Chronic) Calf ulcer (Chronic) chronic left lower ext wound (Chronic) Surgical History: appendectomy, hysterectomy Allergies/Adverse Reactions: Allergies Latex, Natural Rubber Allergy (Verified 07/12/13 11:34) Rash Sulfa (Sulfonamide Antibiotics) Allergy (Verified 07/12/13 11:34) Hives trimethoprim Allergy (Verified 07/12/13 11:34) Hives Home Medications: Ambulatory Orders Medication Instructions Recorded Aspirin [Aspirin, Baby] 81 mg PO DAILY@0800 07/12/13 Calcium Carb/Vitamin D [Os-Mo 1 tablet PO DAILY@0800 07/12/13 500MG + D] Clopidogrel Bisulfate [Plavix] 75 mg PO DAILY 07/12/13 Doxepin HCl [Sinequan] 100 mg PO BID 07/12/13 Doxycycline Monohydrate [Monodox] 100 mg PO BID 07/12/13 [place]-3 Fatty Acids/Fish Oil [Fish 1 each PO DAILY 07/12/13 Oil 1,000 mg Softgel] Vitamin B12 500 mg PO DAILY 07/12/13 Vitamin C 500 mg PO DAILY 07/12/13 proMETHazine soln (6.25mg/5mL) 5 ml PO Q4H PRN PRN 07/12/13 [Phenergan Plain] Prednisone [PredniSONE] 200 mg PO DAILY 07/03/14 Valacyclovir HCl [Valacyclovir] 500 mg PO DAILY 07/03/14 Smoking Status: Never smoker Tobacco Use: Non-smoker Review of Systems Constitutional: Denies: Chills, Fever, Weight Change Eyes: Denies: Pain, Vision Change HEENT: Denies: Difficulty Hearing, Difficulty Swallowing, Sinus Congestion Cardiovascular: Denies: Chest Pain, Palpitations Respiratory: Denies: Cough, Shortness of Breath Gastrointestinal: Denies: Diarrhea, Nausea, Vomiting Genitourinary: Denies: Dysuria, Hematuria Endocrine: Denies: Heat/ Cold Intolerance, Polydipsia, Polyuria Hematologic/ Lymphatic: Denies: Easy Bruising, Easy Bleeding - Physical Exam Vital Signs Temp Pulse Resp BP 97.5 F L 73 18 150/83 H 09/26/19 13:28 10/03/19 13:24 10/03/19 13:24 10/03/19 13:24 General: Alert, Oriented x3, Cooperative, No apparent distress, Well developed, Well nourished HEENT: Atraumatic, PERRLA, EOMI, Normocephalic Oral: Moist Mucosa Neck: No JVD Lungs: Normal air movement Abdomen: Non-Distended Extremities: No clubbing, No cyanosis, No Calf Tenderness, - - Mild edema is noted in the right lower extremity. Severe swelling and edema persists in the left lower extremity. In the left lower extremity, the swelling and edema is noted most notably on the dorsum of the left foot. There appears to be secondary lymphedema as well. The ulceration of the left calf persists, which is essentially circumferential, quite large, and irregular in shape. Dimensions are documented elsewhere. The ulceration on the right lateral calf persists as well. Dimensions are documented elsewhere. There is a moderate amount of bioburden and nonviable tissue involving the ulcerations bilaterally. There is no obvious sign of infection or cellulitis on either side. Wound Measurements and Assessment WC - Nurse 1 - General Ulcer Measurement Start: 09/12/19 13:47 Freq: Status: Active Protocol: Activity Type Activity Date Activity User E-Sign Co-Sign Detail Recorded Client Recorded Date Recorded By Document 10/03/19 13:24 BS [id number] 10/03/19 13:34 BS 10/03/19 13:24 Wound Center Nurse 1 [Ulcer Assessment] #6- R LAT DICKENS -Current Size (cm) - Length 2.6 -Current Size (cm) - Width 2.6 -Current Size (cm) - Depth 0.2 -Total Square Cm 6.76 -Photo Taken No -Necrotic Tissue Type Adherent Slough -Temperature (Nahomy-wound Skin No Abnormality Appearance) (Pt Warm) -Tenderness on Palpation (Nahomy-wound No Skin Appearance) -Ulcer Cleansing Rinsed/ Irrigated with Saline -Foul Odor after Cleansing No -Anesthetic Used 4% Lidocaine Solution #5 LLE- Circumfrential -Combined with other wound No -Current Size (cm) - Length 10.5 -Current Size (cm) - Width 22.3 -Current Size (cm) - Depth 0.2 -Total Square Cm 234.15 -Texture (Nahomy-wound Skin Appearance) Assessed, Scarring -Moisture (Nahomy-wound Skin Appearance Assessed, ) Maceration, Weeping -Temperature (Nahomy-wound Skin No Abnormality Appearance) (Pt Warm) -Tenderness on Palpation (Nahomy-wound No Skin Appearance) -Ulcer Cleansing Rinsed/ Irrigated with Saline -Anesthetic Used 4% Lidocaine Solution WC - Nurse 2 - General Ulcer CM Notes Start: 09/12/19 13:47 Freq: Status: Active Protocol: Activity Type Activity Date Activity User E-Sign Co-Sign Detail Recorded Client Recorded Date Recorded By Document 10/03/19 14:04 DV [id number] 10/03/19 14:14 DV 10/03/19 14:04 Wound Center Nurse 2 [Procedure/Treatment] #6- R LAT DICKENS -Time 14:05 -Correct Patient Yes -Correct Side, Site, Position Yes -Correct Procedure Yes -Procedure Performed Yes -Type of Procedure Debridement -Clinical Debridement Subcutaneous -Post Debridement Size (cm) - Length 10.6 -Post Debridement Size (cm) - Width 22.5 -Post Debridement Size (cm) - Depth 0.2 -Total Square Cm 238.50 -Wound/Ulcer Outcome Failed Graft -Ulcer Cleansing Rinsed/ Irrigated with Saline -Foul Odor after Cleansing No -Bioengineered Tissue No -Bleeding Controlled with Pressure -Offloading No -Treatment Response Procedure Tolerated Well #5 LLE- Circumfrential -Time 14:06 -Correct Patient Yes -Correct Side, Site, Position Yes -Correct Procedure Yes -Procedure Performed Yes -Type of Procedure Debridement -Clinical Debridement Subcutaneous -Post Debridement Size (cm) - Length 2.5 -Post Debridement Size (cm) - Width 2.4 -Post Debridement Size (cm) - Depth 0.3 -Total Square Cm 6.00 -Wound/Ulcer Outcome Failed Flap -Ulcer Cleansing Rinsed/ Irrigated with Saline -Foul Odor after Cleansing No -Bioengineered Tissue No -Bleeding Controlled with Pressure -Offloading No -Treatment Response Procedure Tolerated Well [See Physician Procedure note for Specifics] Pain Scale: 0-10 Numeric [Pain] -Is Patient Pain Free? Yes Musculoskeletal: No Muscle Wasting Neurological: Cranial nerves II-XII grossly intact, Neuro grossly intact Psych/Mental Status: Normal Affect, Appropriate, Alert and oriented to time, place, person, mood and affect Debridement Note Post-Debridement Measurements/Treatment WC - Nurse 2 - General Ulcer CM Notes Start: 09/12/19 13:47 Freq: Status: Active Protocol: Activity Type Activity Date Activity User E-Sign Co-Sign Detail Recorded Client Recorded Date Recorded By Document 09/12/19 14:28 DV [id number] 09/12/19 14:37 DV Document 09/19/19 14:12 DV [id number] 09/19/19 14:18 DV Document 09/26/19 14:20 DV [id number] 09/26/19 14:51 DV Document 10/03/19 14:04 DV [id number] 10/03/19 14:14 DV 09/12/19 09/19/19 09/26/19 14:28 14:12 14:20 Wound Center Nurse 2 #6- R LAT DICKENS -Time 14:29 14:15 14:21 -Correct Patient Yes Yes Yes -Correct Side, Site, Position Yes Yes Yes -Correct Procedure Yes Yes Yes -Procedure Performed Yes Yes Yes -Type of Procedure Debridement Debridement Debridement -Clinical Debridement Subcutaneous Subcutaneous Subcutaneous -Post Debridement Size (cm) - Length 2.4 2.5 2.5 -Post Debridement Size (cm) - Width 2.0 2.5 2.4 -Post Debridement Size (cm) - Depth 0.2 0.3 0.2 -Total Square Cm 4.80 6.25 6.00 -Wound/Ulcer Outcome Not Healed Not Healed Not Healed -Ulcer Cleansing Rinsed/ Rinsed/ Rinsed/ Irrigated with Irrigated with Irrigated with Saline Saline Saline -Foul Odor after Cleansing No No No -Bioengineered Tissue No No No -Bleeding Controlled with Pressure Pressure Pressure -Offloading No No -Treatment Response Procedure Procedure Procedure Tolerated Well Tolerated Well Tolerated Well #5 LLE- Circumfrential -Time 14:31 14:16 14:34 -Correct Patient Yes Yes Yes -Correct Side, Site, Position Yes Yes Yes -Correct Procedure Yes Yes Yes -Procedure Performed Yes Yes Yes -Type of Procedure Debridement Debridement Debridement -Clinical Debridement Subcutaneous Subcutaneous Subcutaneous -Post Debridement Size (cm) - Length 14.5 14.2 23.2 -Post Debridement Size (cm) - Width 23.9 25.5 15.0 -Post Debridement Size (cm) - Depth 0.2 0.2 0.2 -Total Square Cm 346.55 362.10 348.00 -Wound/Ulcer Outcome Not Healed Converted Not Healed -Ulcer Cleansing Rinsed/ Rinsed/ Irrigated with Irrigated with Saline Saline -Foul Odor after Cleansing No No No -Bioengineered Tissue No No No -Bleeding Controlled with Pressure Pressure Pressure -Offloading Yes No No -Type of Offloading Camwalker -Treatment Response Procedure Procedure Procedure Tolerated Well Tolerated Well Tolerated Well Pain Scale: 0-10 Numeric Is Patient Pain Free? Yes Yes Yes 10/03/19 14:04 Wound Center Nurse 2 #6- R LAT DICKENS -Time 14:05 -Correct Patient Yes -Correct Side, Site, Position Yes -Correct Procedure Yes -Procedure Performed Yes -Type of Procedure Debridement -Clinical Debridement Subcutaneous -Post Debridement Size (cm) - Length 10.6 -Post Debridement Size (cm) - Width 22.5 -Post Debridement Size (cm) - Depth 0.2 -Total Square Cm 238.50 -Wound/Ulcer Outcome Failed Graft -Ulcer Cleansing Rinsed/ Irrigated with Saline -Foul Odor after Cleansing No -Bioengineered Tissue No -Bleeding Controlled with Pressure -Offloading No -Treatment Response Procedure Tolerated Well #5 LLE- Circumfrential -Time 14:06 -Correct Patient Yes -Correct Side, Site, Position Yes -Correct Procedure Yes -Procedure Performed Yes -Type of Procedure Debridement -Clinical Debridement Subcutaneous -Post Debridement Size (cm) - Length 2.5 -Post Debridement Size (cm) - Width 2.4 -Post Debridement Size (cm) - Depth 0.3 -Total Square Cm 6.00 -Wound/Ulcer Outcome Failed Flap -Ulcer Cleansing Rinsed/ Irrigated with Saline -Foul Odor after Cleansing No -Bioengineered Tissue No -Bleeding Controlled with Pressure -Offloading No -Type of Offloading -Treatment Response Procedure Tolerated Well Pain Scale: 0-10 Numeric Is Patient Pain Free? Yes Laterality: Right - Lateral calf Type of Debridement: Excisional debridement Anesthesia Used: 5% Lidocaine Gel Depth: Down to and including healthy tissue, in the subcutaneous layer Percentage of wound debrided: 100 Instrument Used: 5mm curette Tissue Removed: Bioburden and nonviable tissue Severity: Fat Layer Exposed Amount of bleeding with debridement: Mild Bleeding Controlled with: Compression and gauze Patient tolerated procedure well - Additional Wound Laterality: Left - Calf Type of Debridement: Excisional debridement Anesthesia Used: 5% Lidocaine Gel Depth: Down to and including healthy tissue, in the subcutaneous layer Percentage of wound debrided: 100 Instrument Used: 5mm curette Tissue Removed: Bioburden and nonviable tissue Severity: Fat Layer Exposed Amount of bleeding with debridement: Mild Bleeding Controlled with: Compression and gauze Patient tolerated procedure: Patient tolerated procedure well Assessment/Plan Active Problems Ulcer of right calf (Chronic) Right leg swelling (Chronic) Leg edema, right (Chronic) Chronic venous hypertension with inflammation involving left side (Chronic) Left leg swelling (Chronic) Varicose veins with ulcer and inflammation (Chronic) Leg edema, left (Chronic) History of DVT (deep vein thrombosis) (Chronic) left lower ext Chronic venous insufficiency (Chronic) Lymphedema of left leg (Chronic) 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 She has a large irregular ulceration on the left lower extremity which is related to her venous disease. The patient has demonstrated slow but progressive improvement. She presented recently with a new ulceration on the right lateral calf. The etiology of this new ulceration is uncertain. There is noted to be a large amount of bioburden and nonviable tissue. Swab cultures were obtained for both aerobic and anaerobic growth. The results revealed Staphylococcus aureus, very rare in amount. This was thought likely to be a contaminant or skin lisette. However, a second such culture, several weeks later, has again reveal the growth of Staphylococcus aureus, rare in amount. Because of a second culture, positive for the same organism, and because of a relative failure to see progress related to this ulceration, we will place the patient on an oral antibiotic consistent with recent culture results. We are to continue leg elevation, avoidance of idle standing and sitting, compression by means of SurePress, active lifestyle, weight control measures, etc. She is also to continue using mechanical pneumatic compression pumps 2-3 times daily bilaterally. She is to continue to take a well-balanced, nutritious diet. Plan: We are to continue with conservative measures. These measures are to include leg elevation. She is to continue sleeping on a flat mattress at night. Her legs are to be elevated to heart level, or higher, even during daytime hours. Leg elevation has been recommended as much as possible. The patient is to avoid prolonged idle sitting. Activity has been encouraged. We are to continue the use of one quarter strength Dakin's solution (0.125%) topically on the ulceration of the left calf. This will be alternated every other day with Silvadene topically. There appears to have been some improvement in the appearance of the left calf ulceration since the initiation of Dakin's solution. XtraSorb will continue to be used for control of exudative drainage. We are to continue the use of collagenase Santyl topically to the ulceration on the right lateral calf. Because these topical preparations require daily application, we are to use SurePress compression wraps on a daily basis, which will be applied with the assistance of the patient's family. The patient is to continue the use of mechanical compression pumps. The mechanical pneumatic compression pumps are to be used twice or 3 times daily. In general, it appears as though the patient's level of compliance has been less than optimal in the past. According to the patient's , the patient has become increasingly more difficult to manage in the home setting, due to her Alzheimer's dementia, which is a major component in her noncompliance. We are to continue to completion a course of doxycycline 100 mg p.o. daily for 10 days, based upon recent culture results. A repeat prescription has been provided for Dilaudid 2 mg as needed, at the patient's request. We are to await the results of the biopsy with respect to the patient's right lateral calf ulceration. As of this date, biopsy results remain pending. Patient is to continue the use of Vasculera orally on a daily basis. Nutritional optimization has been recommended. The patient will return for reevaluation in 1 week. Patient weight is 160 pounds. Patient is 5 feet 9 inches tall. BMI is 23.6. BMI is reasonable. The patient is not a smoker. Influenza vaccine was not administered.
[2019-10-11 11:48] VITALS: BP 147/56; PULSE 77; RESP 16; TEMP 37.2
--- NOTE | 2019-10-11 12:14 | PCM.WC.HP ---
(1) Ulcer of right calf Status: Chronic Current Visit: Yes Qualifiers: Non-pressure ulcer stage: with fat layer exposed Code(s): L97.219 - Non-pressure chronic ulcer of right calf with unspecified severity (2) Right leg swelling Status: Chronic Current Visit: Yes Code(s): M79.89 - Other specified soft tissue disorders (3) Leg edema, right Status: Chronic Current Visit: Yes Code(s): R60.0 - Localized edema (4) Chronic venous hypertension with inflammation involving left side Status: Chronic Current Visit: Yes Code(s): I87.322 - Chronic venous hypertension (idiopathic) with inflammation of left lower extremity (5) Left leg swelling Status: Chronic Current Visit: Yes Code(s): M79.89 - Other specified soft tissue disorders (6) Varicose veins with ulcer and inflammation Status: Chronic Current Visit: Yes Code(s): I83.209 - Varicose veins of unspecified lower extremity with both ulcer of unspecified site and inflammation; L97.909 - Non-pressure chronic ulcer of unspecified part of unspecified lower leg with unspecified severity (7) Leg edema, left Status: Chronic Current Visit: Yes Code(s): R60.0 - Localized edema (8) History of DVT (deep vein thrombosis) Status: Chronic Current Visit: Yes Code(s): Z86.718 - Personal history of other venous thrombosis and embolism Comment: left lower ext (9) Chronic venous insufficiency Status: Chronic Current Visit: Yes (10) Lymphedema of left leg Status: Chronic Current Visit: Yes Code(s): I89.0 - Lymphedema, not elsewhere classified (11) 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 Status: Chronic Current Visit: Yes Code(s): I87.039 - Postthrombotic syndrome with ulcer and inflammation of unspecified lower extremity (12) Calf ulcer Status: Chronic Current Visit: Yes Qualifiers: Laterality: left Non-pressure ulcer stage: with fat layer exposed Qualified Code(s): L97.222 - Non-pressure chronic ulcer of left calf with fat layer exposed Code(s): L97.209 - Non-pressure chronic ulcer of unspecified calf with unspecified severity (13) chronic left lower ext wound Status: Chronic Current Visit: Yes History of Present Illness Date of Service: 10/11/19 Chief Complaint: Chronic venous insufficiency, chronic venous hypertension with inflammation and ulceration, varicose veins with inflammation and ulceration, post phlebitic syndrome with inflammation and ulceration,leg swelling, leg edema, lymphedema, venous stasis ulceration-left lower extremity History of Wound: This is a 79-year-old white female with a long-standing history of chronic venous disease and swelling in her left lower extremity. This has been present for many years. She has a large ulceration located between her left knee and ankle, which is quite large and irregular in shape, and also highly exudative. 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 She has also previously undergone successful endovenous laser ablation of the left great and small saphenous veins. Healing of the patient's left lower extremity ulceration has been slow, but progressive. A number of healing measures have been implemented in the past, without success. We are currently using Silvadene topically and Xtrasorb for absorption of exudate. 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 (Chronic) Calf ulcer (Chronic) chronic left lower ext wound (Chronic) Surgical History: appendectomy, hysterectomy Allergies/Adverse Reactions: Allergies Latex, Natural Rubber Allergy (Verified 07/12/13 11:34) Rash Sulfa (Sulfonamide Antibiotics) Allergy (Verified 07/12/13 11:34) Hives trimethoprim Allergy (Verified 07/12/13 11:34) Hives Home Medications: Ambulatory Orders Medication Instructions Recorded Aspirin [Aspirin, Baby] 81 mg PO DAILY@0800 07/12/13 Calcium Carb/Vitamin D [Os-Mo 1 tablet PO DAILY@0800 07/12/13 500MG + D] Clopidogrel Bisulfate [Plavix] 75 mg PO DAILY 07/12/13 Doxepin HCl [Sinequan] 100 mg PO BID 07/12/13 Doxycycline Monohydrate [Monodox] 100 mg PO BID 07/12/13 [place]-3 Fatty Acids/Fish Oil [Fish 1 each PO DAILY 07/12/13 Oil 1,000 mg Softgel] Vitamin B12 500 mg PO DAILY 07/12/13 Vitamin C 500 mg PO DAILY 07/12/13 proMETHazine soln (6.25mg/5mL) 5 ml PO Q4H PRN PRN 07/12/13 [Phenergan Plain] Prednisone [PredniSONE] 200 mg PO DAILY 07/03/14 Valacyclovir HCl [Valacyclovir] 500 mg PO DAILY 07/03/14 Smoking Status: Never smoker Tobacco Use: Non-smoker Review of Systems Constitutional: Denies: Chills, Fever, Weight Change Eyes: Denies: Pain, Vision Change HEENT: Denies: Difficulty Hearing, Difficulty Swallowing, Sinus Congestion Cardiovascular: Denies: Chest Pain, Palpitations Respiratory: Denies: Cough, Shortness of Breath Gastrointestinal: Denies: Diarrhea, Nausea, Vomiting Genitourinary: Denies: Dysuria, Hematuria Endocrine: Denies: Heat/ Cold Intolerance, Polydipsia, Polyuria Hematologic/ Lymphatic: Denies: Easy Bruising, Easy Bleeding - Physical Exam Vital Signs Temp Pulse Resp BP 99 F 77 16 147/56 H 10/11/19 11:48 10/11/19 11:48 10/11/19 11:48 10/11/19 11:48 General: Alert, Oriented x3, Cooperative, No apparent distress, Well developed, Well nourished HEENT: Atraumatic, PERRLA, EOMI, Normocephalic Oral: Moist Mucosa Neck: No JVD Lungs: Normal air movement Abdomen: Non-Distended Extremities: No clubbing, No cyanosis, No Calf Tenderness, - - Swelling and edema persist in the patient's lower extremities, most notable in the left lower extremity. The swelling and edema is most notable on the dorsum of the left foot, which is chronic in nature. The large circumferential ulceration persists on the left calf. The ulceration is highly irregular in shape. There are multiple areas of epithelialization, skin bridges, etc. There is a moderate amount of bioburden. Dimensions are documented elsewhere. There is no sign of infection or cellulitis. The ulceration on the lateral aspect of the right calf persists as well. There is no sign of infection or cellulitis. Dimensions are documented elsewhere. There is, however, significant bioburden and nonviable tissue present. Skin: No rashes Wound Measurements and Assessment WC - Nurse 1 - General Ulcer Measurement Start: 09/12/19 13:47 Freq: Status: Active Protocol: Activity Type Activity Date Activity User E-Sign Co-Sign Detail Recorded Client Recorded Date Recorded By Document 10/11/19 11:48 [facility] [id number] 10/11/19 11:57 [facility] 10/11/19 11:48 Wound Center Nurse 1 [Ulcer Assessment] #6- R LAT DICKENS -Combined with other wound No -Current Size (cm) - Length 2.4 -Current Size (cm) - Width 2.3 -Current Size (cm) - Depth 0.2 -Total Square Cm 5.52 -Tunneling No -Undermining/Tunneling No -Circular Undermining No -Exudate Amt Medium -Exudate Type Serosanguineous -Wound Margin Flat & Intact -Granulation Amt Medium (34-66%) -Granulation Quality [place],Red -Slough/Fibrin Yes -Necrosis Amt Medium (34-66%) -Necrotic Tissue Type Adherent Slough -Structure Exposed N/A -Texture (Nahomy-wound Skin Appearance) Assessed, Scarring -Moisture (Nahomy-wound Skin Appearance Assessed ) -Color (Nahomy-wound Skin Appearance) Assessed -Temperature (Nahomy-wound Skin No Abnormality Appearance) (Pt Warm) -Tenderness on Palpation (Nahomy-wound No Skin Appearance) -Ulcer Cleansing Wound Cleanser -Foul Odor after Cleansing No -Anesthetic Used 4% Lidocaine Solution #5 LLE- Circumfrential -Combined with other wound No -Current Size (cm) - Length 14.4 -Current Size (cm) - Width 21.4 -Current Size (cm) - Depth 0.2 -Total Square Cm 308.16 -Tunneling No -Undermining/Tunneling No -Circular Undermining No -Exudate Amt Medium -Exudate Type Serosanguineous -Granulation Amt Medium (34-66%) -Granulation Quality [place],Red -Slough/Fibrin Yes -Necrosis Amt Small (1-33%) -Necrotic Tissue Type Adherent Slough -Structure Exposed N/A -Texture (Nahomy-wound Skin Appearance) Assessed, Scarring -Moisture (Nahomy-wound Skin Appearance Weeping ) -Color (Nahomy-wound Skin Appearance) Assessed -Temperature (Nahomy-wound Skin No Abnormality Appearance) (Pt Warm) -Tenderness on Palpation (Nahomy-wound No Skin Appearance) -Ulcer Cleansing Wound Cleanser -Foul Odor after Cleansing No -Anesthetic Used 4% Lidocaine Solution [Edema Assessment] -Lower Limb Edema Present Yes -Right Calf (cm) 36.5 -Right Ankle (cm) 23.2 -Left Calf (cm) 40.5 -Left Ankle (cm) 24.1 WC - Nurse 2 - General Ulcer CM Notes Start: 09/12/19 13:47 Freq: Status: Active Protocol: Activity Type Activity Date Activity User E-Sign Co-Sign Detail Recorded Client Recorded Date Recorded By Document 10/11/19 12:05 TANYA [id number] 10/11/19 12:09 TANYA 10/11/19 12:05 Wound Center Nurse 2 [Procedure/Treatment] #6- R LAT DICKENS -Time 12:05 -Correct Patient Yes -Correct Side, Site, Position Yes -Correct Procedure Yes -Procedure Performed Yes -Type of Procedure Debridement -Clinical Debridement Subcutaneous -Post Debridement Size (cm) - Length 2.5 -Post Debridement Size (cm) - Width 2.3 -Post Debridement Size (cm) - Depth 0.4 -Total Square Cm 5.75 -Wound/Ulcer Outcome Not Healed -Ulcer Cleansing Rinsed/ Irrigated with Saline -Foul Odor after Cleansing No -Bioengineered Tissue No -Bleeding Controlled with Pressure -Offloading No -Treatment Response Procedure Tolerated Well #5 LLE- Circumfrential -Time 12:06 -Correct Patient Yes -Correct Side, Site, Position Yes -Correct Procedure Yes -Procedure Performed Yes -Type of Procedure Debridement -Clinical Debridement Subcutaneous -Post Debridement Size (cm) - Length 14.5 -Post Debridement Size (cm) - Width 21.4 -Post Debridement Size (cm) - Depth 0.2 -Total Square Cm 310.30 -Wound/Ulcer Outcome Not Healed -Ulcer Cleansing Rinsed/ Irrigated with Saline -Foul Odor after Cleansing No -Bioengineered Tissue No -Bleeding Controlled with Pressure -Offloading No -Treatment Response Procedure Tolerated Well [See Physician Procedure note for Specifics] Pain Scale: 0-10 Numeric [Pain] -Is Patient Pain Free? Yes Musculoskeletal: No Muscle Wasting Neurological: Cranial nerves II-XII grossly intact, Neuro grossly intact Psych/Mental Status: Normal Affect, Appropriate, Alert and oriented to time, place, person, mood and affect Debridement Note Post-Debridement Measurements/Treatment WC - Nurse 2 - General Ulcer CM Notes Start: 09/12/19 13:47 Freq: Status: Active Protocol: Activity Type Activity Date Activity User E-Sign Co-Sign Detail Recorded Client Recorded Date Recorded By Document 09/12/19 14:28 DV [id number] 09/12/19 14:37 DV Document 09/19/19 14:12 DV [id number] 09/19/19 14:18 DV Document 09/26/19 14:20 DV [id number] 09/26/19 14:51 DV Document 10/03/19 14:04 DV [id number] 10/03/19 14:14 DV Document 10/11/19 12:05 [id number] 10/11/19 12:09 JF 09/12/19 09/19/19 09/26/19 14:28 14:12 14:20 Wound Center Nurse 2 #6- R LAT DICKENS -Time 14:29 14:15 14:21 -Correct Patient Yes Yes Yes -Correct Side, Site, Position Yes Yes Yes -Correct Procedure Yes Yes Yes -Procedure Performed Yes Yes Yes -Type of Procedure Debridement Debridement Debridement -Clinical Debridement Subcutaneous Subcutaneous Subcutaneous -Post Debridement Size (cm) - Length 2.4 2.5 2.5 -Post Debridement Size (cm) - Width 2.0 2.5 2.4 -Post Debridement Size (cm) - Depth 0.2 0.3 0.2 -Total Square Cm 4.80 6.25 6.00 -Wound/Ulcer Outcome Not Healed Not Healed Not Healed -Ulcer Cleansing Rinsed/ Rinsed/ Rinsed/ Irrigated with Irrigated with Irrigated with Saline Saline Saline -Foul Odor after Cleansing No No No -Bioengineered Tissue No No No -Bleeding Controlled with Pressure Pressure Pressure -Offloading No No -Treatment Response Procedure Procedure Procedure Tolerated Well Tolerated Well Tolerated Well #5 LLE- Circumfrential -Time 14:31 14:16 14:34 -Correct Patient Yes Yes Yes -Correct Side, Site, Position Yes Yes Yes -Correct Procedure Yes Yes Yes -Procedure Performed Yes Yes Yes -Type of Procedure Debridement Debridement Debridement -Clinical Debridement Subcutaneous Subcutaneous Subcutaneous -Post Debridement Size (cm) - Length 14.5 14.2 23.2 -Post Debridement Size (cm) - Width 23.9 25.5 15.0 -Post Debridement Size (cm) - Depth 0.2 0.2 0.2 -Total Square Cm 346.55 362.10 348.00 -Wound/Ulcer Outcome Not Healed Converted Not Healed -Ulcer Cleansing Rinsed/ Rinsed/ Irrigated with Irrigated with Saline Saline -Foul Odor after Cleansing No No No -Bioengineered Tissue No No No -Bleeding Controlled with Pressure Pressure Pressure -Offloading Yes No No -Type of Offloading Camwalker -Treatment Response Procedure Procedure Procedure Tolerated Well Tolerated Well Tolerated Well Pain Scale: 0-10 Numeric Is Patient Pain Free? Yes Yes Yes 10/03/19 10/11/19 14:04 12:05 Wound Center Nurse 2 #6- R LAT DICKENS -Time 14:05 12:05 -Correct Patient Yes Yes -Correct Side, Site, Position Yes Yes -Correct Procedure Yes Yes -Procedure Performed Yes Yes -Type of Procedure Debridement Debridement -Clinical Debridement Subcutaneous Subcutaneous -Post Debridement Size (cm) - Length 10.6 2.5 -Post Debridement Size (cm) - Width 22.5 2.3 -Post Debridement Size (cm) - Depth 0.2 0.4 -Total Square Cm 238.50 5.75 -Wound/Ulcer Outcome Failed Graft Not Healed -Ulcer Cleansing Rinsed/ Rinsed/ Irrigated with Irrigated with Saline Saline -Foul Odor after Cleansing No No -Bioengineered Tissue No No -Bleeding Controlled with Pressure Pressure -Offloading No No -Treatment Response Procedure Procedure Tolerated Well Tolerated Well #5 LLE- Circumfrential -Time 14:06 12:06 -Correct Patient Yes Yes -Correct Side, Site, Position Yes Yes -Correct Procedure Yes Yes -Procedure Performed Yes Yes -Type of Procedure Debridement Debridement -Clinical Debridement Subcutaneous Subcutaneous -Post Debridement Size (cm) - Length 2.5 14.5 -Post Debridement Size (cm) - Width 2.4 21.4 -Post Debridement Size (cm) - Depth 0.3 0.2 -Total Square Cm 6.00 310.30 -Wound/Ulcer Outcome Failed Flap Not Healed -Ulcer Cleansing Rinsed/ Rinsed/ Irrigated with Irrigated with Saline Saline -Foul Odor after Cleansing No No -Bioengineered Tissue No No -Bleeding Controlled with Pressure Pressure -Offloading No No -Type of Offloading -Treatment Response Procedure Procedure Tolerated Well Tolerated Well Pain Scale: 0-10 Numeric Is Patient Pain Free? Yes Yes Laterality: Right - Lateral calf Type of Debridement: Excisional debridement Anesthesia Used: 5% Lidocaine Gel Depth: Down to and including healthy tissue, in the subcutaneous layer Percentage of wound debrided: 100 Instrument Used: 5mm curette Tissue Removed: Bioburden and nonviable tissue Severity: Fat Layer Exposed Amount of bleeding with debridement: Mild Bleeding Controlled with: Compression and gauze Patient tolerated procedure well - Additional Wound Laterality: Left - Calf Type of Debridement: Excisional debridement Anesthesia Used: 5% Lidocaine Gel Depth: Down to and including healthy tissue, in the subcutaneous layer Percentage of wound debrided: 100 Instrument Used: 5mm curette Tissue Removed: Bioburden and nonviable tissue Severity: Fat Layer Exposed Amount of bleeding with debridement: Mild Bleeding Controlled with: Compression and gauze Patient tolerated procedure: Patient tolerated procedure well Assessment/Plan Active Problems Ulcer of right calf (Chronic) Right leg swelling (Chronic) Leg edema, right (Chronic) Chronic venous hypertension with inflammation involving left side (Chronic) Left leg swelling (Chronic) Varicose veins with ulcer and inflammation (Chronic) Leg edema, left (Chronic) History of DVT (deep vein thrombosis) (Chronic) left lower ext Chronic venous insufficiency (Chronic) Lymphedema of left leg (Chronic) 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 She has a large irregular ulceration on the left lower extremity which is related to her venous disease. The patient has demonstrated slow but progressive improvement. She presented recently with a new ulceration on the right lateral calf. The etiology of this new ulceration is uncertain. There is noted to be a large amount of bioburden and nonviable tissue. Swab cultures were obtained for both aerobic and anaerobic growth. The results revealed Staphylococcus aureus, very rare in amount. This was thought likely to be a contaminant or skin lisette. However, a second such culture, several weeks later, has again reveal the growth of Staphylococcus aureus, rare in amount. Because of a second culture, positive for the same organism, and because of a relative failure to see progress related to this ulceration, we will place the patient on an oral antibiotic consistent with recent culture results. We are to continue leg elevation, avoidance of idle standing and sitting, compression by means of SurePress, active lifestyle, weight control measures, etc. She is also to continue using mechanical pneumatic compression pumps 2-3 times daily bilaterally. She is to continue to take a well-balanced, nutritious diet. Plan: We are to continue with conservative measures. These measures are to include leg elevation. She is to continue sleeping on a flat mattress at night. Her legs are to be elevated to heart level, or higher, even during daytime hours. Leg elevation has been recommended as much as possible. The patient is to avoid prolonged idle sitting. Activity has been encouraged. We are to continue the use of one quarter strength Dakin's solution (0.125%) topically on the ulceration of the left calf. This will be alternated every other day with Silvadene topically. There appears to have been some improvement in the appearance of the left calf ulceration since the initiation of Dakin's solution. XtraSorb will continue to be used for control of exudative drainage. We are to continue the use of collagenase Santyl topically to the ulceration on the right lateral calf. Because these topical preparations require daily application, we are to use SurePress compression wraps on a daily basis, which will be applied with the assistance of the patient's family. The patient is to continue the use of mechanical compression pumps. The mechanical pneumatic compression pumps are to be used twice or 3 times daily. In general, it appears as though the patient's level of compliance has been less than optimal in the past. According to the patient's , the patient has become increasingly more difficult to manage in the home setting, due to her Alzheimer's dementia, which is a major component in her noncompliance. We are to continue to completion a course of doxycycline 100 mg p.o. daily for 10 days, based upon recent culture results. A repeat prescription has been provided for Dilaudid 2 mg as needed, at the patient's request. We are to await the results of the biopsy with respect to the patient's right lateral calf ulceration. As of this date, biopsy results remain pending. Patient is to continue the use of Vasculera orally on a daily basis. Nutritional optimization has been recommended. The patient will return for reevaluation in 1 week. Patient weight is 160 pounds. Patient is 5 feet 9 inches tall. BMI is 23.6. BMI is reasonable. The patient is not a smoker. Influenza vaccine was not administered.
== END 2019-10-11 23:59 ==
LOC: WC 11:30
PROVIDERS: Referring Provider Surgery; Visit Provider Surgery
DX: I83.222 Varicose veins of left lower extremity with both ulcer of calf and inflammation (principal); L97.222 Non-pressure chronic ulcer of left calf with fat layer exposed; L97.212 Non-pressure chronic ulcer of right calf with fat layer exposed; M79.89 Other specified soft tissue disorders; Z86.718 Personal history of other venous thrombosis and embolism; R60.0 Localized edema; I89.0 Lymphedema, not elsewhere classified; Z79.899 Other long term (current) drug therapy; Z79.82 Long term (current) use of aspirin; F02.80 Dementia in other diseases classified elsewhere, unspecified severity, without behavioral disturbance, psychotic disturbance, mood disturbance, and anxiety; G30.9 Alzheimer's disease, unspecified; Z91.19 Patient's noncompliance with other medical treatment and regimen
CPT/HCPCS: 11042; 11045; 11104; 87070; 87075; 87077; 87186; 87205; 88304; 88305; 88312; 88325

== ENCOUNTER 2019-11-08 11:30 | Outpatient (RCR) | payer MEDICARE, BC, SELFPAY ==
[2019-10-12 00:24] VITALS: BP 147/56; PULSE 77; RESP 16; TEMP 37.2
[2019-10-18 11:24] VITALS: BP 167/77; PULSE 76; RESP 16; TEMP 36.9
--- NOTE | 2019-10-18 12:09 | PCM.WC.HP ---
(1) Ulcer of right calf Status: Chronic Current Visit: Yes Qualifiers: Non-pressure ulcer stage: with fat layer exposed Code(s): L97.219 - Non-pressure chronic ulcer of right calf with unspecified severity (2) Right leg swelling Status: Chronic Current Visit: Yes Code(s): M79.89 - Other specified soft tissue disorders (3) Leg edema, right Status: Chronic Current Visit: Yes Code(s): R60.0 - Localized edema (4) Chronic venous hypertension with inflammation involving left side Status: Chronic Current Visit: Yes Code(s): I87.322 - Chronic venous hypertension (idiopathic) with inflammation of left lower extremity (5) Left leg swelling Status: Chronic Current Visit: Yes Code(s): M79.89 - Other specified soft tissue disorders (6) Varicose veins with ulcer and inflammation Status: Chronic Current Visit: Yes Code(s): I83.209 - Varicose veins of unspecified lower extremity with both ulcer of unspecified site and inflammation; L97.909 - Non-pressure chronic ulcer of unspecified part of unspecified lower leg with unspecified severity (7) Leg edema, left Status: Chronic Current Visit: Yes Code(s): R60.0 - Localized edema (8) May-Thurner syndrome Status: Resolved Current Visit: No Code(s): I87.1 - Compression of vein (9) History of DVT (deep vein thrombosis) Status: Chronic Current Visit: No Code(s): Z86.718 - Personal history of other venous thrombosis and embolism Comment: left lower ext (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 Current Visit: No (11) Cellulitis, leg Status: Resolved Current Visit: No Qualifiers: Code(s): L03.119 - Cellulitis of unspecified part of limb (12) Erythema of skin Status: Resolved Current Visit: No Code(s): L53.9 - Erythematous condition, unspecified (13) Cellulitis of leg Status: Resolved Current Visit: No Qualifiers: Code(s): L03.119 - Cellulitis of unspecified part of limb (14) Cellulitis Status: Resolved Current Visit: No Code(s): L03.90 - Cellulitis, unspecified (15) Chronic venous insufficiency Status: Chronic Current Visit: Yes (16) Lymphedema of left leg Status: Chronic Current Visit: Yes Code(s): I89.0 - Lymphedema, not elsewhere classified (17) 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 Status: Chronic Current Visit: Yes Code(s): I87.039 - Postthrombotic syndrome with ulcer and inflammation of unspecified lower extremity (18) Calf ulcer Status: Chronic Current Visit: Yes Qualifiers: Laterality: unspecified laterality Code(s): L97.209 - Non-pressure chronic ulcer of unspecified calf with unspecified severity (19) chronic left lower ext wound Status: Chronic Current Visit: No History of Present Illness Date of Service: 10/18/19 Chief Complaint: Chronic venous insufficiency, chronic venous hypertension with inflammation and ulceration, varicose veins with inflammation and ulceration, post phlebitic syndrome with inflammation and ulceration,leg swelling, leg edema, lymphedema, venous stasis ulceration-left lower extremity History of Wound: This is a 79-year-old white female with a long-standing history of chronic venous disease and swelling in her left lower extremity. This has been present for many years. She has a large ulceration located between her left knee and ankle, which is quite large and irregular in shape, and also highly exudative. 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 She has also previously undergone successful endovenous laser ablation of the left great and small saphenous veins. Healing of the patient's left lower extremity ulceration has been slow, but progressive. A number of healing measures have been implemented in the past, without success. We are currently using Silvadene topically and Xtrasorb for absorption of exudate. 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 (Chronic) Calf ulcer (Chronic) chronic left lower ext wound (Chronic) Surgical History: appendectomy, hysterectomy Allergies/Adverse Reactions: Allergies Latex, Natural Rubber Allergy (Verified 07/12/13 11:34) Rash Sulfa (Sulfonamide Antibiotics) Allergy (Verified 07/12/13 11:34) Hives trimethoprim Allergy (Verified 07/12/13 11:34) Hives Home Medications: Ambulatory Orders Medication Instructions Recorded Aspirin [Aspirin, Baby] 81 mg PO DAILY@0800 07/12/13 Calcium Carb/Vitamin D [Os-Mo 1 tablet PO DAILY@0800 07/12/13 500MG + D] Clopidogrel Bisulfate [Plavix] 75 mg PO DAILY 07/12/13 Doxepin HCl [Sinequan] 100 mg PO BID 07/12/13 Doxycycline Monohydrate [Monodox] 100 mg PO BID 07/12/13 [place]-3 Fatty Acids/Fish Oil [Fish 1 each PO DAILY 07/12/13 Oil 1,000 mg Softgel] Vitamin B12 500 mg PO DAILY 07/12/13 Vitamin C 500 mg PO DAILY 07/12/13 proMETHazine soln (6.25mg/5mL) 5 ml PO Q4H PRN PRN 07/12/13 [Phenergan Plain] Prednisone [PredniSONE] 200 mg PO DAILY 07/03/14 Valacyclovir HCl [Valacyclovir] 500 mg PO DAILY 07/03/14 Smoking Status: Never smoker Tobacco Use: Non-smoker Review of Systems Constitutional: Denies: Chills, Fever, Weight Change Eyes: Denies: Pain, Vision Change HEENT: Denies: Difficulty Hearing, Difficulty Swallowing, Sinus Congestion Cardiovascular: Denies: Chest Pain, Palpitations Respiratory: Denies: Cough, Shortness of Breath Gastrointestinal: Denies: Diarrhea, Nausea, Vomiting Genitourinary: Denies: Dysuria, Hematuria Endocrine: Denies: Heat/ Cold Intolerance, Polydipsia, Polyuria Hematologic/ Lymphatic: Denies: Easy Bruising, Easy Bleeding - Physical Exam Vital Signs Temp Pulse Resp BP 98.4 F 76 16 167/77 H 10/18/19 11:24 10/18/19 11:24 10/18/19 11:24 10/18/19 11:24 General: Alert, Oriented x3, Cooperative, No apparent distress, Well developed, Well nourished HEENT: Atraumatic, PERRLA, EOMI, Normocephalic Oral: Moist Mucosa Neck: No JVD Lungs: Normal air movement Abdomen: Non-Distended Extremities: No clubbing, No cyanosis, No Calf Tenderness, - - Lower extremity swelling, edema, and lymphedema persist, primarily in the left lower extremity. This is most notable on the dorsum of the left foot. The ulceration of the left calf persists as well. It is highly irregular in shape. Dimensions are documented elsewhere. There are multiple areas of epithelialization, skin bridges, etc. There is a moderate amount of bioburden and nonviable tissue. There is no sign of infection or cellulitis. The ulceration on the right anterolateral calf persists as well. There is also a large amount of bioburden and nonviable tissue present. There is no sign of infection or cellulitis. Dimensions are documented elsewhere. Varicose veins are noted in the lower extremities bilaterally. Skin: No rashes Wound Measurements and Assessment WC - Nurse 1 - General Ulcer Measurement Start: 10/18/19 11:23 Freq: Status: Active Protocol: Activity Type Activity Date Activity User E-Sign Co-Sign Detail Recorded Client Recorded Date Recorded By Document 10/18/19 11:24 [facility] [id number] 10/18/19 11:37 [facility] 10/18/19 11:24 Wound Center Nurse 1 [Ulcer Assessment] #6- R LAT DICKENS -Combined with other wound No -Current Size (cm) - Length 2.3 -Current Size (cm) - Width 2.5 -Current Size (cm) - Depth 0.2 -Total Square Cm 5.75 -Photo Taken No -Epithelialization None Present -Tunneling No -Undermining/Tunneling No -Circular Undermining No -Exudate Amt Small -Exudate Type Serosanguineous -Wound Margin Distinct, Outline Attached -Granulation Amt Small (1-33%) -Granulation Quality Red -Slough/Fibrin Yes -Necrosis Amt Large (67-100%) -Necrotic Tissue Type Adherent Slough -Texture (Nahomy-wound Skin Appearance) Assessed, Scarring -Moisture (Nahomy-wound Skin Appearance Assessed ) -Color (Nahomy-wound Skin Appearance) Assessed, Erythema -Temperature (Nahomy-wound Skin No Abnormality Appearance) (Pt Warm) -Tenderness on Palpation (Nahomy-wound No Skin Appearance) -Ulcer Cleansing soapy water -Foul Odor after Cleansing No -Anesthetic Used 4% Lidocaine Solution #5 LLE- Circumfrential -Combined with other wound No -Current Size (cm) - Length 15 -Current Size (cm) - Width 25.4 -Current Size (cm) - Depth 0.2 -Total Square Cm 381.0 -Photo Taken No -Epithelialization None Present -Tunneling No -Undermining/Tunneling No -Circular Undermining No -Exudate Amt Medium -Exudate Type Serosanguineous -Wound Margin Distinct, Outline Attached -Granulation Amt Medium (34-66%) -Granulation Quality Red -Slough/Fibrin Yes -Necrosis Amt Medium (34-66%) -Necrotic Tissue Type Adherent Slough -Texture (Nahomy-wound Skin Appearance) Assessed, Scarring -Moisture (Nahomy-wound Skin Appearance Assessed ) -Color (Nahomy-wound Skin Appearance) Assessed, Erythema -Temperature (Nahomy-wound Skin No Abnormality Appearance) (Pt Warm) -Tenderness on Palpation (Nahomy-wound No Skin Appearance) -Ulcer Cleansing soapy water -Foul Odor after Cleansing No -Anesthetic Used 4% Lidocaine Solution [Edema Assessment] -Lower Limb Edema Present Yes -Right Calf (cm) 33 -Right Ankle (cm) 22.4 -Left Calf (cm) 41.1 -Left Ankle (cm) 24.3 WC - Nurse 2 - General Ulcer CM Notes Start: 10/18/19 11:23 Freq: Status: Active Protocol: Activity Type Activity Date Activity User E-Sign Co-Sign Detail Recorded Client Recorded Date Recorded By Document 10/18/19 12:02 DV [id number] 10/18/19 12:06 DV 10/18/19 12:02 Wound Center Nurse 2 [Procedure/Treatment] #6- R LAT DICKENS -Time 12:04 -Correct Patient Yes -Correct Side, Site, Position Yes -Correct Procedure Yes -Procedure Performed Yes -Type of Procedure Debridement -Clinical Debridement Subcutaneous -Post Debridement Size (cm) - Length 2.5 -Post Debridement Size (cm) - Width 2.5 -Post Debridement Size (cm) - Depth 0.2 -Total Square Cm 6.25 -Wound/Ulcer Outcome Not Healed -Ulcer Cleansing Rinsed/ Irrigated with Saline -Foul Odor after Cleansing No -Bioengineered Tissue No -Type of Offloading Total Contact Cast (TCC) -Treatment Response Procedure Tolerated Well #5 LLE- Circumfrential -Time 12:05 -Correct Patient Yes -Correct Side, Site, Position Yes -Correct Procedure Yes -Procedure Performed Yes -Type of Procedure Debridement -Clinical Debridement Subcutaneous -Post Debridement Size (cm) - Length 15.5 -Post Debridement Size (cm) - Width 25.0 -Post Debridement Size (cm) - Depth 0.2 -Total Square Cm 387.50 -Wound/Ulcer Outcome Not Healed -Ulcer Cleansing Rinsed/ Irrigated with Saline -Foul Odor after Cleansing No -Bioengineered Tissue No -Offloading No -Treatment Response Procedure Tolerated Well [See Physician Procedure note for Specifics] Pain Scale: 0-10 Numeric [Pain] -Is Patient Pain Free? Yes Musculoskeletal: No Muscle Wasting Neurological: Cranial nerves II-XII grossly intact, Neuro grossly intact Psych/Mental Status: Normal Affect, Appropriate, Alert and oriented to time, place, person, mood and affect Debridement Note Post-Debridement Measurements/Treatment WC - Nurse 2 - General Ulcer CM Notes Start: 10/18/19 11:23 Freq: Status: Active Protocol: Activity Type Activity Date Activity User E-Sign Co-Sign Detail Recorded Client Recorded Date Recorded By Document 10/18/19 12:02 DV [id number] 10/18/19 12:06 DV 10/18/19 12:02 Wound Center Nurse 2 #6- R LAT DICKENS -Time 12:04 -Correct Patient Yes -Correct Side, Site, Position Yes -Correct Procedure Yes -Procedure Performed Yes -Type of Procedure Debridement -Clinical Debridement Subcutaneous -Post Debridement Size (cm) - Length 2.5 -Post Debridement Size (cm) - Width 2.5 -Post Debridement Size (cm) - Depth 0.2 -Total Square Cm 6.25 -Wound/Ulcer Outcome Not Healed -Ulcer Cleansing Rinsed/ Irrigated with Saline -Foul Odor after Cleansing No -Bioengineered Tissue No -Type of Offloading Total Contact Cast (TCC) -Treatment Response Procedure Tolerated Well #5 LLE- Circumfrential -Time 12:05 -Correct Patient Yes -Correct Side, Site, Position Yes -Correct Procedure Yes -Procedure Performed Yes -Type of Procedure Debridement -Clinical Debridement Subcutaneous -Post Debridement Size (cm) - Length 15.5 -Post Debridement Size (cm) - Width 25.0 -Post Debridement Size (cm) - Depth 0.2 -Total Square Cm 387.50 -Wound/Ulcer Outcome Not Healed -Ulcer Cleansing Rinsed/ Irrigated with Saline -Foul Odor after Cleansing No -Bioengineered Tissue No -Offloading No -Treatment Response Procedure Tolerated Well Pain Scale: 0-10 Numeric Is Patient Pain Free? Yes Laterality: Left - Calf Type of Debridement: Excisional debridement Anesthesia Used: 5% Lidocaine Gel Depth: Down to and including healthy tissue, in the subcutaneous layer Percentage of wound debrided: 100 Instrument Used: 5mm curette Tissue Removed: Bioburden and nonviable tissue Severity: Fat Layer Exposed Amount of bleeding with debridement: Mild Bleeding Controlled with: Compression and gauze Patient tolerated procedure well - Additional Wound Laterality: Right - Anterolateral calf Type of Debridement: Excisional debridement Anesthesia Used: 5% Lidocaine Gel Depth: Down to and including healthy tissue, in the subcutaneous layer Percentage of wound debrided: 100 Instrument Used: 5mm curette Tissue Removed: Bioburden and nonviable tissue Severity: Fat Layer Exposed Amount of bleeding with debridement: Mild Bleeding Controlled with: Compression and gauze Patient tolerated procedure: Patient tolerated procedure well Assessment/Plan Active Problems Ulcer of right calf (Chronic) Right leg swelling (Chronic) Leg edema, right (Chronic) Chronic venous hypertension with inflammation involving left side (Chronic) Left leg swelling (Chronic) Varicose veins with ulcer and inflammation (Chronic) Leg edema, left (Chronic) Chronic venous insufficiency (Chronic) Lymphedema of left leg (Chronic) 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 She has a large irregular ulceration on the left lower extremity which is related to her venous disease. The patient has demonstrated slow but progressive improvement. She presented recently with a new ulceration on the right lateral calf. The etiology of this new ulceration is uncertain. There is noted to be a large amount of bioburden and nonviable tissue. Swab cultures were obtained for both aerobic and anaerobic growth. The results revealed Staphylococcus aureus, very rare in amount. This was thought likely to be a contaminant or skin lisette. However, a second such culture, several weeks later, has again reveal the growth of Staphylococcus aureus, rare in amount. Because of a second culture, positive for the same organism, and because of a relative failure to see progress related to this ulceration, we will place the patient on an oral antibiotic consistent with recent culture results. We are to continue leg elevation, avoidance of idle standing and sitting, compression by means of SurePress, active lifestyle, weight control measures, etc. She is also to continue using mechanical pneumatic compression pumps 2-3 times daily bilaterally. She is to continue to take a well-balanced, nutritious diet. Plan: We are to continue with conservative measures. These measures are to include leg elevation. She is to continue sleeping on a flat mattress at night. Her legs are to be elevated to heart level, or higher, even during daytime hours. Leg elevation has been recommended as much as possible. The patient is to avoid prolonged idle sitting. Activity has been encouraged. We are to continue the use of one quarter strength Dakin's solution (0.125%) topically on the ulceration of the left calf. This will be alternated every other day with Silvadene topically. There appears to have been some improvement in the appearance of the left calf ulceration since the initiation of Dakin's solution. XtraSorb will continue to be used for control of exudative drainage. We will also adopt this modality for the treatment of the right anterolateral calf ulceration. This will entail the use of Dakin's solution alternating daily with Silvadene. We will reevaluate in 1 week to assess the benefit of this change in therapy. Because these topical preparations require daily application, we are to use SurePress compression wraps on a daily basis, which will be applied with the assistance of the patient's family. The patient is to continue the use of mechanical compression pumps. The mechanical pneumatic compression pumps are to be used twice or 3 times daily. In general, it appears as though the patient's level of compliance has been less than optimal in the past. According to the patient's , the patient has become increasingly more difficult to manage in the home setting, due to her Alzheimer's dementia, which is a major component in her noncompliance. The patient has now completed her course of doxycycline 100 mg p.o. daily for 10 days, based upon recent culture results. A repeat prescription has been provided for Dilaudid 2 mg as needed, at the patient's request. The patient's recent biopsy results indicate the presence of inflammation, but no specific etiology to account for her right calf ulceration. Patient is to continue the use of Vasculera orally on a daily basis. Nutritional optimization has been recommended. The patient will return for reevaluation in 1 week. Patient weight is 160 pounds. Patient is 5 feet 9 inches tall. BMI is 23.6. BMI is reasonable. The patient is not a smoker. Influenza vaccine was not administered.
[2019-10-25 11:54] VITALS: BP 143/63; PULSE 77; RESP 18; TEMP 36.6
--- NOTE | 2019-10-25 12:18 | PCM.WC.HP ---
(1) Ulcer of right calf Status: Chronic Current Visit: Yes Qualifiers: Non-pressure ulcer stage: with fat layer exposed Code(s): L97.219 - Non-pressure chronic ulcer of right calf with unspecified severity (2) Right leg swelling Status: Chronic Current Visit: Yes Code(s): M79.89 - Other specified soft tissue disorders (3) Leg edema, right Status: Chronic Current Visit: Yes Code(s): R60.0 - Localized edema (4) Chronic venous hypertension with inflammation involving left side Status: Chronic Current Visit: Yes Code(s): I87.322 - Chronic venous hypertension (idiopathic) with inflammation of left lower extremity (5) Left leg swelling Status: Chronic Current Visit: Yes Code(s): M79.89 - Other specified soft tissue disorders (6) Varicose veins with ulcer and inflammation Status: Chronic Current Visit: Yes Code(s): I83.209 - Varicose veins of unspecified lower extremity with both ulcer of unspecified site and inflammation; L97.909 - Non-pressure chronic ulcer of unspecified part of unspecified lower leg with unspecified severity (7) Leg edema, left Status: Chronic Current Visit: Yes Code(s): R60.0 - Localized edema (8) History of DVT (deep vein thrombosis) Status: Chronic Current Visit: No Code(s): Z86.718 - Personal history of other venous thrombosis and embolism Comment: left lower ext (9) Chronic venous insufficiency Status: Chronic Current Visit: Yes (10) Lymphedema of left leg Status: Chronic Current Visit: Yes Code(s): I89.0 - Lymphedema, not elsewhere classified (11) 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 Status: Chronic Current Visit: Yes Code(s): I87.039 - Postthrombotic syndrome with ulcer and inflammation of unspecified lower extremity (12) Calf ulcer Status: Chronic Current Visit: Yes Qualifiers: Laterality: unspecified laterality Code(s): L97.209 - Non-pressure chronic ulcer of unspecified calf with unspecified severity (13) chronic left lower ext wound Status: Chronic Current Visit: No History of Present Illness Date of Service: 10/25/19 Chief Complaint: Chronic venous insufficiency, chronic venous hypertension with inflammation and ulceration, varicose veins with inflammation and ulceration, post phlebitic syndrome with inflammation and ulceration,leg swelling, leg edema, lymphedema, venous stasis ulceration-left lower extremity History of Wound: This is a 79-year-old white female with a long-standing history of chronic venous disease and swelling in her left lower extremity. This has been present for many years. She has a large ulceration located between her left knee and ankle, which is quite large and irregular in shape, and also highly exudative. 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 She has also previously undergone successful endovenous laser ablation of the left great and small saphenous veins. Healing of the patient's left lower extremity ulceration has been slow, but progressive. A number of healing measures have been implemented in the past, without success. We are currently using Silvadene topically and Xtrasorb for absorption of exudate. 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 (Chronic) Calf ulcer (Chronic) chronic left lower ext wound (Chronic) Surgical History: appendectomy, hysterectomy Allergies/Adverse Reactions: Allergies Latex, Natural Rubber Allergy (Verified 07/12/13 11:34) Rash Sulfa (Sulfonamide Antibiotics) Allergy (Verified 07/12/13 11:34) Hives trimethoprim Allergy (Verified 07/12/13 11:34) Hives Home Medications: Ambulatory Orders Medication Instructions Recorded Aspirin [Aspirin, Baby] 81 mg PO DAILY@0800 07/12/13 Calcium Carb/Vitamin D [Os-Mo 1 tablet PO DAILY@0800 07/12/13 500MG + D] Clopidogrel Bisulfate [Plavix] 75 mg PO DAILY 07/12/13 Doxepin HCl [Sinequan] 100 mg PO BID 07/12/13 Doxycycline Monohydrate [Monodox] 100 mg PO BID 07/12/13 [place]-3 Fatty Acids/Fish Oil [Fish 1 each PO DAILY 07/12/13 Oil 1,000 mg Softgel] Vitamin B12 500 mg PO DAILY 07/12/13 Vitamin C 500 mg PO DAILY 07/12/13 proMETHazine soln (6.25mg/5mL) 5 ml PO Q4H PRN PRN 07/12/13 [Phenergan Plain] Prednisone [PredniSONE] 200 mg PO DAILY 07/03/14 Valacyclovir HCl [Valacyclovir] 500 mg PO DAILY 07/03/14 Smoking Status: Never smoker Tobacco Use: Non-smoker Review of Systems Constitutional: Denies: Chills, Fever, Weight Change Eyes: Denies: Pain, Vision Change HEENT: Denies: Difficulty Hearing, Difficulty Swallowing, Sinus Congestion Cardiovascular: Denies: Chest Pain, Palpitations Respiratory: Denies: Cough, Shortness of Breath Gastrointestinal: Denies: Diarrhea, Nausea, Vomiting Genitourinary: Denies: Dysuria, Hematuria Endocrine: Denies: Heat/ Cold Intolerance, Polydipsia, Polyuria Hematologic/ Lymphatic: Denies: Easy Bruising, Easy Bleeding - Physical Exam Vital Signs Temp Pulse Resp BP 97.8 F 77 18 143/63 H 10/25/19 11:54 10/25/19 11:54 10/25/19 11:54 10/25/19 11:54 General: Alert, Oriented x3, Cooperative, No apparent distress, Well developed, Well nourished HEENT: Atraumatic, PERRLA, EOMI, Normocephalic Oral: Moist Mucosa Neck: No JVD Lungs: Normal air movement Abdomen: Non-Distended Extremities: No clubbing, No cyanosis, No Calf Tenderness, - - Significant swelling, edema, lymphedema persist in the left lower extremity, noted particularly on the dorsum of the left foot. This has been chronic in nature. The ulceration of the left calf persists as well. It is highly irregular in shape. Dimensions are documented elsewhere. There is a moderate amount of bioburden. However, there is evidence of epithelialization, and the ulceration is diminishing in size. The ulceration on the right anterolateral calf persists as well. Dimensions are documented elsewhere. There is a moderate amount of bioburden. There is no sign of infection or cellulitis involving either of her ulcerations. Skin: No rashes Wound Measurements and Assessment WC - Nurse 1 - General Ulcer Measurement Start: 10/18/19 11:23 Freq: Status: Active Protocol: Activity Type Activity Date Activity User E-Sign Co-Sign Detail Recorded Client Recorded Date Recorded By Document 10/25/19 11:54 RB [id number] 10/25/19 12:02 RB 10/25/19 11:54 Wound Center Nurse 1 [Ulcer Assessment] #6- R LAT DICKENS -Combined with other wound No -Current Size (cm) - Length 2.6 -Current Size (cm) - Width 2.7 -Current Size (cm) - Depth 0.2 -Total Square Cm 7.02 -Tunneling No -Undermining/Tunneling No -Circular Undermining No -Exudate Amt Medium -Exudate Type Serosanguineous -Wound Margin Flat & Intact -Granulation Amt Large (67-100%) -Granulation Quality Shively -Slough/Fibrin Yes -Necrosis Amt Small (1-33%) -Necrotic Tissue Type Adherent Slough -Structure Exposed N/A -Texture (Nahomy-wound Skin Appearance) Scarring -Moisture (Nahomy-wound Skin Appearance Assessed ) -Color (Nahomy-wound Skin Appearance) Assessed -Temperature (Nahomy-wound Skin No Abnormality Appearance) (Pt Warm) -Tenderness on Palpation (Nahomy-wound No Skin Appearance) -Ulcer Cleansing Wound Cleanser -Foul Odor after Cleansing No -Anesthetic Used 4% Lidocaine Solution #5 LLE- Circumfrential -Combined with other wound No -Current Size (cm) - Length 14.8 -Current Size (cm) - Width 24.6 -Current Size (cm) - Depth 0.2 -Total Square Cm 364.08 -Tunneling No -Undermining/Tunneling No -Circular Undermining No -Exudate Amt Medium -Exudate Type Serosanguineous -Wound Margin Flat & Intact -Granulation Amt Medium (34-66%) -Granulation Quality Shively -Slough/Fibrin Yes -Necrosis Amt Small (1-33%) -Necrotic Tissue Type Adherent Slough -Structure Exposed N/A -Texture (Nahomy-wound Skin Appearance) Scarring -Moisture (Nahomy-wound Skin Appearance Assessed ) -Color (Nahomy-wound Skin Appearance) Assessed -Temperature (Nahomy-wound Skin No Abnormality Appearance) (Pt Warm) -Tenderness on Palpation (Nahomy-wound No Skin Appearance) -Ulcer Cleansing Wound Cleanser -Foul Odor after Cleansing No -Anesthetic Used 4% Lidocaine Solution [Edema Assessment] -Lower Limb Edema Present Yes -Right Calf (cm) 32 -Right Ankle (cm) 23.1 -Left Calf (cm) 39.5 -Left Ankle (cm) 26 WC - Nurse 2 - General Ulcer CM Notes Start: 10/18/19 11:23 Freq: Status: Active Protocol: Activity Type Activity Date Activity User E-Sign Co-Sign Detail Recorded Client Recorded Date Recorded By Document 10/25/19 12:12 DV [id number] 10/25/19 12:15 DV 10/25/19 12:12 Wound Center Nurse 2 [Procedure/Treatment] #6- R LAT DICKENS -Time 12:13 -Correct Patient Yes -Correct Side, Site, Position Yes -Correct Procedure Yes -Procedure Performed Yes -Type of Procedure Debridement -Clinical Debridement Subcutaneous -Post Debridement Size (cm) - Length 2.7 -Post Debridement Size (cm) - Width 2.8 -Post Debridement Size (cm) - Depth 0.2 -Total Square Cm 7.56 -Wound/Ulcer Outcome Not Healed -Ulcer Cleansing Rinsed/ Irrigated with Saline -Foul Odor after Cleansing No -Bioengineered Tissue No -Bleeding Controlled with Pressure -Offloading No -Treatment Response Procedure Tolerated Well #5 LLE- Circumfrential -Time 12:14 -Correct Patient Yes -Correct Side, Site, Position Yes -Correct Procedure Yes -Procedure Performed Yes -Type of Procedure Debridement -Clinical Debridement Subcutaneous -Post Debridement Size (cm) - Length 15.0 -Post Debridement Size (cm) - Width 25.0 -Post Debridement Size (cm) - Depth 0.2 -Total Square Cm 375.00 -Wound/Ulcer Outcome Not Healed -Ulcer Cleansing Rinsed/ Irrigated with Saline -Foul Odor after Cleansing No -Bioengineered Tissue No -Bleeding Controlled with Pressure -Treatment Response Procedure Tolerated Well [See Physician Procedure note for Specifics] Pain Scale: 0-10 Numeric [Pain] -Is Patient Pain Free? Yes Musculoskeletal: No Muscle Wasting Neurological: Cranial nerves II-XII grossly intact, Neuro grossly intact Psych/Mental Status: Normal Affect, Appropriate, Alert and oriented to time, place, person, mood and affect Debridement Note Post-Debridement Measurements/Treatment WC - Nurse 2 - General Ulcer CM Notes Start: 10/18/19 11:23 Freq: Status: Active Protocol: Activity Type Activity Date Activity User E-Sign Co-Sign Detail Recorded Client Recorded Date Recorded By Document 10/18/19 12:02 DV [id number] 10/18/19 12:06 DV Document 10/25/19 12:12 DV [id number] 10/25/19 12:15 DV 10/18/19 10/25/19 12:02 12:12 Wound Center Nurse 2 #6- R LAT DICKENS -Time 12:04 12:13 -Correct Patient Yes Yes -Correct Side, Site, Position Yes Yes -Correct Procedure Yes Yes -Procedure Performed Yes Yes -Type of Procedure Debridement Debridement -Clinical Debridement Subcutaneous Subcutaneous -Post Debridement Size (cm) - Length 2.5 2.7 -Post Debridement Size (cm) - Width 2.5 2.8 -Post Debridement Size (cm) - Depth 0.2 0.2 -Total Square Cm 6.25 7.56 -Wound/Ulcer Outcome Not Healed Not Healed -Ulcer Cleansing Rinsed/ Rinsed/ Irrigated with Irrigated with Saline Saline -Foul Odor after Cleansing No No -Bioengineered Tissue No No -Bleeding Controlled with Pressure -Offloading No -Type of Offloading Total Contact Cast (TCC) -Treatment Response Procedure Procedure Tolerated Well Tolerated Well #5 LLE- Circumfrential -Time 12:05 12:14 -Correct Patient Yes Yes -Correct Side, Site, Position Yes Yes -Correct Procedure Yes Yes -Procedure Performed Yes Yes -Type of Procedure Debridement Debridement -Clinical Debridement Subcutaneous Subcutaneous -Post Debridement Size (cm) - Length 15.5 15.0 -Post Debridement Size (cm) - Width 25.0 25.0 -Post Debridement Size (cm) - Depth 0.2 0.2 -Total Square Cm 387.50 375.00 -Wound/Ulcer Outcome Not Healed Not Healed -Ulcer Cleansing Rinsed/ Rinsed/ Irrigated with Irrigated with Saline Saline -Foul Odor after Cleansing No No -Bioengineered Tissue No No -Bleeding Controlled with Pressure -Offloading No -Treatment Response Procedure Procedure Tolerated Well Tolerated Well Pain Scale: 0-10 Numeric Is Patient Pain Free? Yes Yes Laterality: Left - Calf Type of Debridement: Excisional debridement Anesthesia Used: 5% Lidocaine Gel Depth: Down to and including healthy tissue, in the subcutaneous layer Percentage of wound debrided: 100 Instrument Used: 5mm curette Tissue Removed: Bioburden and nonviable tissue Severity: Fat Layer Exposed Amount of bleeding with debridement: Mild Bleeding Controlled with: Compression and gauze Patient tolerated procedure well - Additional Wound Laterality: Left - Anterolateral calf Type of Debridement: Excisional debridement Anesthesia Used: 5% Lidocaine Gel Depth: Down to and including healthy tissue, in the subcutaneous layer Percentage of wound debrided: 100 Instrument Used: 5mm curette Tissue Removed: Bioburden and nonviable tissue Severity: Fat Layer Exposed Amount of bleeding with debridement: Mild Bleeding Controlled with: Compression and gauze Patient tolerated procedure: Patient tolerated procedure well Assessment/Plan Active Problems Ulcer of right calf (Chronic) Right leg swelling (Chronic) Leg edema, right (Chronic) Chronic venous hypertension with inflammation involving left side (Chronic) Left leg swelling (Chronic) Varicose veins with ulcer and inflammation (Chronic) Leg edema, left (Chronic) Chronic venous insufficiency (Chronic) Lymphedema of left leg (Chronic) 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 She has a large irregular ulceration on the left lower extremity which is related to her venous disease. The patient has demonstrated slow but progressive improvement. She presented recently with a new ulceration on the right lateral calf. The etiology of this new ulceration is uncertain. There is noted to be a large amount of bioburden and nonviable tissue. Swab cultures were obtained for both aerobic and anaerobic growth. The results revealed Staphylococcus aureus, very rare in amount. This was thought likely to be a contaminant or skin lisette. However, a second such culture, several weeks later, has again reveal the growth of Staphylococcus aureus, rare in amount. Because of a second culture, positive for the same organism, and because of a relative failure to see progress related to this ulceration, we will place the patient on an oral antibiotic consistent with recent culture results. We are to continue leg elevation, avoidance of idle standing and sitting, compression by means of SurePress, active lifestyle, weight control measures, etc. She is also to continue using mechanical pneumatic compression pumps 2-3 times daily bilaterally. She is to continue to take a well-balanced, nutritious diet. Plan: We are to continue with conservative measures. These measures are to include leg elevation. She is to continue sleeping on a flat mattress at night. Her legs are to be elevated to heart level, or higher, even during daytime hours. Leg elevation has been recommended as much as possible. The patient is to avoid prolonged idle sitting. Activity has been encouraged. We are to continue the use of one-quarter strength Dakin's solution (0.125%) topically on the ulceration of the left calf. This will be alternated every other day with Silvadene topically. There appears to have been some improvement in the appearance of the left calf ulceration since the initiation of Dakin's solution. XtraSorb will continue to be used for control of exudative drainage. We will also continue this modality for the treatment of the right anterolateral calf ulceration. This will entail the use of Dakin's solution alternating daily with Silvadene. We will reevaluate in 2 weeks. Because these topical preparations require daily application, we are to use SurePress compression wraps on a daily basis, which will be applied with the assistance of the patient's family. The patient is to continue the use of mechanical compression pumps. The mechanical pneumatic compression pumps are to be used twice or 3 times daily. In general, it appears as though the patient's level of compliance has been less than optimal in the past. According to the patient's , the patient has become increasingly more difficult to manage in the home setting, due to her Alzheimer's dementia, which is a major component in her noncompliance. The patient has now completed her course of doxycycline 100 mg p.o. daily for 10 days, based upon recent culture results. A repeat prescription has been provided for Dilaudid 2 mg as needed, at the patient's request. The patient's recent biopsy results indicate the presence of inflammation, but no specific etiology to account for her right calf ulceration. Patient is to continue the use of Vasculera orally on a daily basis. Nutritional optimization has been recommended. The patient will return for reevaluation in 2 weeks. Patient weight is 160 pounds. Patient is 5 feet 9 inches tall. BMI is 23.6. BMI is reasonable. The patient is not a smoker. Influenza vaccine was not administered.
[2019-11-08 11:35] VITALS: BP 130/66; PULSE 83; RESP 18; TEMP 36
--- NOTE | 2019-11-08 12:33 | HP.PCM_ITS ---
(1) Ulcer of right calf Status: Chronic Current Visit: Yes Qualifiers: Non-pressure ulcer stage: with fat layer exposed Code(s): L97.219 - Non-pressure chronic ulcer of right calf with unspecified severity (2) Right leg swelling Status: Chronic Current Visit: Yes Code(s): M79.89 - Other specified soft tissue disorders (3) Leg edema, right Status: Chronic Current Visit: Yes Code(s): R60.0 - Localized edema (4) Chronic venous hypertension with inflammation involving left side Status: Chronic Current Visit: Yes Code(s): I87.322 - Chronic venous hypertension (idiopathic) with inflammation of left lower extremity (5) Left leg swelling Status: Chronic Current Visit: Yes Code(s): M79.89 - Other specified soft tissue disorders (6) Varicose veins with ulcer and inflammation Status: Chronic Current Visit: Yes Code(s): I83.209 - Varicose veins of unspecified lower extremity with both ulcer of unspecified site and inflammation; L97.909 - Non-pressure chronic ulcer of unspecified part of unspecified lower leg with unspecified severity (7) Leg edema, left Status: Chronic Current Visit: Yes Code(s): R60.0 - Localized edema (8) History of DVT (deep vein thrombosis) Status: Chronic Current Visit: No Code(s): Z86.718 - Personal history of other venous thrombosis and embolism Comment: left lower ext (9) Chronic venous insufficiency Status: Chronic Current Visit: Yes (10) Lymphedema of left leg Status: Chronic Current Visit: Yes Code(s): I89.0 - Lymphedema, not elsewhere classified (11) 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 Status: Chronic Current Visit: Yes Code(s): I87.039 - Postthrombotic syndrome with ulcer and inflammation of unspecified lower extremity (12) Calf ulcer Status: Chronic Current Visit: Yes Qualifiers: Laterality: unspecified laterality Code(s): L97.209 - Non-pressure chronic ulcer of unspecified calf with unspecified severity (13) chronic left lower ext wound Status: Chronic Current Visit: No History of Present Illness Date of Service: 11/08/19 Chief Complaint: Chronic venous insufficiency, chronic venous hypertension with inflammation and ulceration, varicose veins with inflammation and ulceration, post phlebitic syndrome with inflammation and ulceration,leg swelling, leg edema, lymphedema, venous stasis ulceration-left lower extremity History of Wound: This is a 79-year-old white female with a long-standing history of chronic venous disease and swelling in her left lower extremity. This has been present for many years. She has a large ulceration located between her left knee and ankle, which is quite large and irregular in shape, and also highly exudative. 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 She has also previously undergone successful endovenous laser ablation of the left great and small saphenous veins. Healing of the patient's left lower extremity ulceration has been slow, but progressive. A number of healing measures have been implemented in the past, without success. We are currently using Silvadene topically and Xtrasorb for absorption of exudate. 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 (Chronic) Calf ulcer (Chronic) chronic left lower ext wound (Chronic) Surgical History: appendectomy, hysterectomy Allergies/Adverse Reactions: Allergies Latex, Natural Rubber Allergy (Verified 07/12/13 11:34) Rash Sulfa (Sulfonamide Antibiotics) Allergy (Verified 07/12/13 11:34) Hives trimethoprim Allergy (Verified 07/12/13 11:34) Hives Home Medications: Ambulatory Orders Medication Instructions Recorded Aspirin [Aspirin, Baby] 81 mg PO DAILY@0800 07/12/13 Calcium Carb/Vitamin D [Os-Mo 1 tablet PO DAILY@0800 07/12/13 500MG + D] Clopidogrel Bisulfate [Plavix] 75 mg PO DAILY 07/12/13 Doxepin HCl [Sinequan] 100 mg PO BID 07/12/13 Doxycycline Monohydrate [Monodox] 100 mg PO BID 07/12/13 [place]-3 Fatty Acids/Fish Oil [Fish 1 each PO DAILY 07/12/13 Oil 1,000 mg Softgel] Vitamin B12 500 mg PO DAILY 07/12/13 Vitamin C 500 mg PO DAILY 07/12/13 proMETHazine soln (6.25mg/5mL) 5 ml PO Q4H PRN PRN 07/12/13 [Phenergan Plain] Prednisone [PredniSONE] 200 mg PO DAILY 07/03/14 Valacyclovir HCl [Valacyclovir] 500 mg PO DAILY 07/03/14 Smoking Status: Never smoker Tobacco Use: Non-smoker Review of Systems Constitutional: Denies: Chills, Fever, Weight Change Eyes: Denies: Pain, Vision Change HEENT: Denies: Difficulty Hearing, Difficulty Swallowing, Sinus Congestion Cardiovascular: Denies: Chest Pain, Palpitations Respiratory: Denies: Cough, Shortness of Breath Gastrointestinal: Denies: Diarrhea, Nausea, Vomiting Genitourinary: Denies: Dysuria, Hematuria Endocrine: Denies: Heat/ Cold Intolerance, Polydipsia, Polyuria Hematologic/ Lymphatic: Denies: Easy Bruising, Easy Bleeding - Physical Exam Vital Signs Temp Pulse Resp BP 96.8 F L 83 18 130/66 H 11/08/19 11:35 11/08/19 11:35 11/08/19 11:35 11/08/19 11:35 General: Alert, Oriented x3, Cooperative, No apparent distress, Well developed, Well nourished HEENT: Atraumatic, PERRLA, EOMI, Normocephalic Oral: Moist Mucosa Neck: No JVD Lungs: Normal air movement Abdomen: Non-Distended Extremities: No clubbing, No cyanosis, Capillary Refill Less than 3 Seconds, - - Moderate to severe swelling persists in the left lower extremity. This is most notable on the dorsum of the left foot. This has been chronic in nature. The ulceration of the left calf appears to be improved, no large areas of the ulceration are yet to epithelialize. The left calf ulceration is highly irregular in shape, with multiple skin bridges. There is a moderate amount of bioburden. The ulceration on the right anterolateral calf persists as well. Shins are documented elsewhere. There is a moderate amount of bioburden. There is no sign of infection or cellulitis involving the ulcerations on either leg. Wound Measurements and Assessment WC - Nurse 1 - General Ulcer Measurement Start: 10/18/19 11:23 Freq: Status: Active Protocol: Activity Type Activity Date Activity User E-Sign Co-Sign Detail Recorded Client Recorded Date Recorded By Document 11/08/19 11:35 DL [id number] 11/08/19 11:37 DL 11/08/19 11:35 Wound Center Nurse 1 [Ulcer Assessment] #6- R LAT DICKENS -Current Size (cm) - Length 2.3 -Current Size (cm) - Width 2.5 -Current Size (cm) - Depth 0.2 -Total Square Cm 5.75 -Photo Taken No -Exudate Amt Small -Exudate Type Serosanguineous -Wound Margin Distinct, Outline Attached -Granulation Amt Medium (34-66%) -Granulation Quality Red -Necrosis Amt Medium (34-66%) -Necrotic Tissue Type Adherent Slough -Structure Exposed N/A -Texture (Nahomy-wound Skin Appearance) Scarring -Moisture (Nahomy-wound Skin Appearance No Abnormality ) -Color (Nahomy-wound Skin Appearance) No Abnormality -Temperature (Nahomy-wound Skin No Abnormality Appearance) (Pt Warm) -Tenderness on Palpation (Nahomy-wound No Skin Appearance) -Ulcer Cleansing Wound Cleanser -Foul Odor after Cleansing No -Anesthetic Used 4% Lidocaine Solution #5 LLE- Circumfrential -Current Size (cm) - Length 14.8 -Current Size (cm) - Width 24.3 -Current Size (cm) - Depth 0.2 -Total Square Cm 359.64 -Photo Taken No -Exudate Amt Medium -Exudate Type Serosanguineous -Wound Margin Distinct, Outline Attached -Granulation Amt Medium (34-66%) -Necrosis Amt Medium (34-66%) -Necrotic Tissue Type Adherent Slough -Structure Exposed N/A -Texture (Nahomy-wound Skin Appearance) Scarring -Moisture (Nahomy-wound Skin Appearance No Abnormality ) -Color (Nahomy-wound Skin Appearance) No Abnormality -Temperature (Nahomy-wound Skin No Abnormality Appearance) (Pt Warm) -Tenderness on Palpation (Nahomy-wound No Skin Appearance) -Ulcer Cleansing Wound Cleanser -Foul Odor after Cleansing No -Anesthetic Used 4% Lidocaine Solution [Edema Assessment] -Right Calf (cm) 31.6 -Right Ankle (cm) 23 -Left Calf (cm) 35 -Left Ankle (cm) 25.5 WC - Nurse 2 - General Ulcer CM Notes Start: 10/18/19 11:23 Freq: Status: Active Protocol: Activity Type Activity Date Activity User E-Sign Co-Sign Detail Recorded Client Recorded Date Recorded By Document 11/08/19 11:57 DV [id number] 11/08/19 12:06 DV 11/08/19 11:57 Wound Center Nurse 2 [Procedure/Treatment] #6- R LAT DICKENS -Time 12:01 -Correct Patient Yes -Correct Side, Site, Position Yes -Correct Procedure Yes -Procedure Performed Yes -Type of Procedure Debridement -Clinical Debridement Subcutaneous -Post Debridement Size (cm) - Length 2.6 -Post Debridement Size (cm) - Width 2.8 -Post Debridement Size (cm) - Depth 0.3 -Total Square Cm 7.28 -Wound/Ulcer Outcome Not Healed -Ulcer Cleansing Rinsed/ Irrigated with Saline -Foul Odor after Cleansing No -Bioengineered Tissue No -Bleeding Controlled with Pressure -Offloading No -Treatment Response Procedure Tolerated Well #5 LLE- Circumfrential -Time 12:02 -Correct Patient Yes -Correct Side, Site, Position Yes -Correct Procedure Yes -Procedure Performed Yes -Type of Procedure Debridement -Clinical Debridement Subcutaneous -Post Debridement Size (cm) - Length 15.1 -Post Debridement Size (cm) - Width 10.5 -Post Debridement Size (cm) - Depth 0.2 -Total Square Cm 158.55 -Wound/Ulcer Outcome Not Healed -Ulcer Cleansing Rinsed/ Irrigated with Saline -Foul Odor after Cleansing No -Bioengineered Tissue No -Bleeding Controlled with Pressure -Offloading No -Type of Offloading Surgical Shoe -Treatment Response Procedure Tolerated Well [See Physician Procedure note for Specifics] Musculoskeletal: No Muscle Wasting Neurological: Cranial nerves II-XII grossly intact, Neuro grossly intact Psych/Mental Status: Normal Affect, Appropriate, Alert and oriented to time, place, person, mood and affect Debridement Note Post-Debridement Measurements/Treatment WC - Nurse 2 - General Ulcer CM Notes Start: 10/18/19 11:23 Freq: Status: Active Protocol: Activity Type Activity Date Activity User E-Sign Co-Sign Detail Recorded Client Recorded Date Recorded By Document 10/18/19 12:02 DV [id number] 10/18/19 12:06 DV Document 10/25/19 12:12 DV [id number] 10/25/19 12:15 DV Document 11/08/19 11:57 DV [id number] 11/08/19 12:06 DV 10/18/19 10/25/19 11/08/19 12:02 12:12 11:57 Wound Center Nurse 2 #6- R LAT DICKENS -Time 12:04 12:13 12:01 -Correct Patient Yes Yes Yes -Correct Side, Site, Position Yes Yes Yes -Correct Procedure Yes Yes Yes -Procedure Performed Yes Yes Yes -Type of Procedure Debridement Debridement Debridement -Clinical Debridement Subcutaneous Subcutaneous Subcutaneous -Post Debridement Size (cm) - Length 2.5 2.7 2.6 -Post Debridement Size (cm) - Width 2.5 2.8 2.8 -Post Debridement Size (cm) - Depth 0.2 0.2 0.3 -Total Square Cm 6.25 7.56 7.28 -Wound/Ulcer Outcome Not Healed Not Healed Not Healed -Ulcer Cleansing Rinsed/ Rinsed/ Rinsed/ Irrigated with Irrigated with Irrigated with Saline Saline Saline -Foul Odor after Cleansing No No No -Bioengineered Tissue No No No -Bleeding Controlled with Pressure Pressure -Offloading No No -Type of Offloading Total Contact Cast (TCC) -Treatment Response Procedure Procedure Procedure Tolerated Well Tolerated Well Tolerated Well #5 LLE- Circumfrential -Time 12:05 12:14 12:02 -Correct Patient Yes Yes Yes -Correct Side, Site, Position Yes Yes Yes -Correct Procedure Yes Yes Yes -Procedure Performed Yes Yes Yes -Type of Procedure Debridement Debridement Debridement -Clinical Debridement Subcutaneous Subcutaneous Subcutaneous -Post Debridement Size (cm) - Length 15.5 15.0 15.1 -Post Debridement Size (cm) - Width 25.0 25.0 10.5 -Post Debridement Size (cm) - Depth 0.2 0.2 0.2 -Total Square Cm 387.50 375.00 158.55 -Wound/Ulcer Outcome Not Healed Not Healed Not Healed -Ulcer Cleansing Rinsed/ Rinsed/ Rinsed/ Irrigated with Irrigated with Irrigated with Saline Saline Saline -Foul Odor after Cleansing No No No -Bioengineered Tissue No No No -Bleeding Controlled with Pressure Pressure -Offloading No No -Type of Offloading Surgical Shoe -Treatment Response Procedure Procedure Procedure Tolerated Well Tolerated Well Tolerated Well Pain Scale: 0-10 Numeric Is Patient Pain Free? Yes Yes Laterality: Right - Anterolateral calf Type of Debridement: Excisional debridement Anesthesia Used: 5% Lidocaine Gel Depth: Down to and including healthy tissue, in the subcutaneous layer Percentage of wound debrided: 100 Instrument Used: 5mm curette Tissue Removed: Bioburden and nonviable tissue Severity: Fat Layer Exposed Amount of bleeding with debridement: Mild Bleeding Controlled with: Compression and gauze Patient tolerated procedure well - Additional Wound Laterality: Left - Calf Type of Debridement: Excisional debridement Anesthesia Used: 5% Lidocaine Gel Depth: Down to and including healthy tissue, in the subcutaneous layer Percentage of wound debrided: 100 Instrument Used: 5mm curette Tissue Removed: Bioburden and nonviable tissue Severity: Fat Layer Exposed Amount of bleeding with debridement: Mild Bleeding Controlled with: Compression and gauze Patient tolerated procedure: Patient tolerated procedure well Assessment/Plan Active Problems Ulcer of right calf (Chronic) Right leg swelling (Chronic) Leg edema, right (Chronic) Chronic venous hypertension with inflammation involving left side (Chronic) Left leg swelling (Chronic) Varicose veins with ulcer and inflammation (Chronic) Leg edema, left (Chronic) Chronic venous insufficiency (Chronic) Lymphedema of left leg (Chronic) 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 She has a large irregular ulceration on the left lower extremity which is related to her venous disease. The patient has demonstrated slow but progressive improvement. She presented recently with a new ulceration on the right lateral calf. The etiology of this new ulceration is uncertain. There is noted to be a large amount of bioburden and nonviable tissue. Swab cultures were obtained for both aerobic and anaerobic growth. The results revealed Staphylococcus aureus, very rare in amount. This was thought likely to be a contaminant or skin lisette. However, a second such culture, several weeks later, has again reveal the growth of Staphylococcus aureus, rare in amount. Because of a second culture, positive for the same organism, and because of a relative failure to see progress related to this ulceration, we treated the patient with an oral antibiotic consistent with recent culture results. We are to continue leg elevation, avoidance of idle standing and sitting, compression by means of SurePress, active lifestyle, weight control measures, etc. She is also to continue using mechanical pneumatic compression pumps 2-3 times daily bilaterally. She is to continue to take a well-balanced, nutritious diet. Plan: We are to continue with conservative measures. These measures are to include leg elevation. She is to continue sleeping on a flat mattress at night. Her legs are to be elevated to heart level, or higher, even during daytime hours. Leg elevation has been recommended as much as possible. The patient is to avoid prolonged idle sitting. Activity has been encouraged. We are to continue the use of one-quarter strength Dakin's solution (0.125%) topically on the ulceration of the left calf. This will be alternated every other day with Silvadene topically. There appears to have been some improvement in the appearance of the left calf ulceration since the initiation of Dakin's solution. XtraSorb will continue to be used for control of exudative drainage. We will also continue this modality for the treatment of the right anterolateral calf ulceration as well, using Dakin's solution alternating daily with Silvadene. We will reevaluate in 2 weeks. Because these topical preparations require daily application, we are to use SurePress compression wraps on a daily basis, which will be applied with the assistance of the patient's family. The patient is to continue the use of mechanical compression pumps. The mechanical pneumatic compression pumps are to be used twice or 3 times daily. In general, it appears as though the patient's level of compliance has been less than optimal in the past. According to the patient's , the patient has become increasingly more difficult to manage in the home setting, due to her Alzheimer's dementia, which is a major component in her noncompliance. The patient has now completed her course of doxycycline 100 mg p.o. daily for 10 days, based upon recent culture results. A repeat prescription has been provided for Dilaudid 2 mg as needed, at the patient's request. The patient's recent biopsy results indicate the presence of inflammation, but no specific etiology to account for her right calf ulceration. Patient is to continue the use of Vasculera orally on a daily basis. Nutritional optimization has been recommended. The patient will return for reevaluation in 2 weeks. We are to seek insurance preauthorization for the use of a skin graft substitute on the ulceration of the right calf, such as PriMatrix and/or Amnio Waldron. Patient weight is 160 pounds. Patient is 5 feet 9 inches tall. BMI is 23.6. BMI is reasonable. The patient is not a smoker. Influenza vaccine was not administered.
== END 2019-11-11 23:59 ==
LOC: WC 11:30
PROVIDERS: Referring Provider Surgery; Visit Provider Surgery
DX: I83.212 Varicose veins of right lower extremity with both ulcer of calf and inflammation (principal); I83.222 Varicose veins of left lower extremity with both ulcer of calf and inflammation; L97.212 Non-pressure chronic ulcer of right calf with fat layer exposed; L97.222 Non-pressure chronic ulcer of left calf with fat layer exposed; I89.0 Lymphedema, not elsewhere classified; F02.80 Dementia in other diseases classified elsewhere, unspecified severity, without behavioral disturbance, psychotic disturbance, mood disturbance, and anxiety; G30.9 Alzheimer's disease, unspecified; Z91.19 Patient's noncompliance with other medical treatment and regimen; M79.89 Other specified soft tissue disorders; R60.0 Localized edema; Z86.718 Personal history of other venous thrombosis and embolism
CPT/HCPCS: 11042; 11045

== ENCOUNTER 2019-12-06 12:00 | Outpatient (RCR) | payer MEDICARE, BC, SELFPAY ==
[2019-11-12 00:29] VITALS: BP 130/66; PULSE 83; RESP 18; TEMP 36
[2019-11-22 11:34] VITALS: BP 162/61; PULSE 78; RESP 18; TEMP 36.8
--- NOTE | 2019-11-22 12:58 | HP.PCM_ITS ---
(1) Ulcer of right calf Status: Chronic Current Visit: Yes Qualifiers: Non-pressure ulcer stage: with fat layer exposed Code(s): L97.219 - Non-pressure chronic ulcer of right calf with unspecified severity (2) Right leg swelling Status: Chronic Current Visit: Yes Code(s): M79.89 - Other specified soft tissue disorders (3) Leg edema, right Status: Chronic Current Visit: Yes Code(s): R60.0 - Localized edema (4) Chronic venous hypertension with inflammation involving left side Status: Chronic Current Visit: Yes Code(s): I87.322 - Chronic venous hypertension (idiopathic) with inflammation of left lower extremity (5) Left leg swelling Status: Chronic Current Visit: Yes Code(s): M79.89 - Other specified soft tissue disorders (6) Varicose veins with ulcer and inflammation Status: Chronic Current Visit: Yes Code(s): I83.209 - Varicose veins of unspecified lower extremity with both ulcer of unspecified site and inflammation; L97.909 - Non-pressure chronic ulcer of unspecified part of unspecified lower leg with unspecified severity (7) Leg edema, left Status: Chronic Current Visit: Yes Code(s): R60.0 - Localized edema (8) May-Thurner syndrome Status: Resolved Current Visit: No Code(s): I87.1 - Compression of vein (9) History of DVT (deep vein thrombosis) Status: Chronic Current Visit: No Code(s): Z86.718 - Personal history of other venous thrombosis and embolism Comment: left lower ext (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 Current Visit: No (11) Cellulitis, leg Status: Resolved Current Visit: No Qualifiers: Code(s): L03.119 - Cellulitis of unspecified part of limb (12) Erythema of skin Status: Resolved Current Visit: No Code(s): L53.9 - Erythematous condition, unspecified (13) Cellulitis of leg Status: Resolved Current Visit: No Qualifiers: Code(s): L03.119 - Cellulitis of unspecified part of limb (14) Cellulitis Status: Resolved Current Visit: No Code(s): L03.90 - Cellulitis, unspecified (15) Chronic venous insufficiency Status: Chronic Current Visit: Yes (16) Lymphedema of left leg Status: Chronic Current Visit: Yes Code(s): I89.0 - Lymphedema, not elsewhere classified (17) 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 Status: Chronic Current Visit: Yes Code(s): I87.039 - Postthrombotic syndrome with ulcer and inflammation of unspecified lower extremity (18) Calf ulcer Status: Chronic Current Visit: Yes Code(s): L97.209 - Non-pressure chronic ulcer of unspecified calf with unspecified severity (19) chronic left lower ext wound Status: Chronic Current Visit: Yes History of Present Illness Date of Service: 11/22/19 Chief Complaint: Chronic venous insufficiency, chronic venous hypertension with inflammation and ulceration, varicose veins with inflammation and ulceration, post phlebitic syndrome with inflammation and ulceration,leg swelling, leg edema, lymphedema, venous stasis ulceration-left lower extremity History of Wound: This is a 79-year-old white female with a long-standing history of chronic venous disease and swelling in her left lower extremity. This has been present for many years. She has a large ulceration located b etween her left knee and ankle, which is quite large and irregular in shape, and also highly exudative. 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 She has also previously undergone successful endovenous laser ablation of the left great and small saphenous veins. Healing of the patient's left lower extremity ulceration has been slow, but progressive. A number of healing measures have been implemented in the past, without success. We are currently using Silvadene topically and Xtrasorb for absorption of exudate. 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 (Chronic) Calf ulcer (Chronic) chronic left lower ext wound (Chronic) Surgical History: appendectomy, hysterectomy Allergies/Adverse Reactions: Allergies Latex, Natural Rubber Allergy (Verified 07/12/13 11:34) Rash Sulfa (Sulfonamide Antibiotics) Allergy (Verified 07/12/13 11:34) Hives trimethoprim Allergy (Verified 07/12/13 11:34) Hives Home Medications: Ambulatory Orders Medication Instructions Recorded Aspirin [Aspirin, Baby] 81 mg PO DAILY@0800 07/12/13 Calcium Carb/Vitamin D [Os-Mo 1 tablet PO DAILY@0800 07/12/13 500MG + D] Clopidogrel Bisulfate [Plavix] 75 mg PO DAILY 07/12/13 Doxepin HCl [Sinequan] 100 mg PO BID 07/12/13 Doxycycline Monohydrate [Monodox] 100 mg PO BID 07/12/13 [place]-3 Fatty Acids/Fish Oil [Fish 1 each PO DAILY 07/12/13 Oil 1,000 mg Softgel] Vitamin B12 500 mg PO DAILY 07/12/13 Vitamin C 500 mg PO DAILY 07/12/13 proMETHazine soln (6.25mg/5mL) 5 ml PO Q4H PRN PRN 07/12/13 [Phenergan Plain] Prednisone [PredniSONE] 200 mg PO DAILY 07/03/14 Valacyclovir HCl [Valacyclovir] 500 mg PO DAILY 07/03/14 Smoking Status: Never smoker Tobacco Use: Non-smoker Review of Systems Constitutional: Denies: Chills, Fever, Weight Change Eyes: Denies: Pain, Vision Change HEENT: Denies: Difficulty Hearing, Difficulty Swallowing, Sinus Congestion Cardiovascular: Denies: Chest Pain, Palpitations Respiratory: Denies: Cough, Shortness of Breath Gastrointestinal: Denies: Diarrhea, Nausea, Vomiting Genitourinary: Denies: Dysuria, Hematuria Endocrine: Denies: Heat/ Cold Intolerance, Polydipsia, Polyuria Hematologic/ Lymphatic: Denies: Easy Bruising, Easy Bleeding - Physical Exam Vital Signs Temp Pulse Resp BP 98.2 F 78 18 162/61 H 11/22/19 11:34 11/22/19 11:34 11/22/19 11:34 11/22/19 11:34 General: Alert, Oriented x3, Cooperative, No apparent distress, Well developed, Well nourished HEENT: Atraumatic, PERRLA, EOMI, Normocephalic Oral: Moist Mucosa Neck: No JVD Lungs: Normal air movement Abdomen: Non-Distended Extremities: No clubbing, No cyanosis, No Calf Tenderness, - - Swelling and edema persist in the left lower extremity. This has been chronic in nature. It is most notable on the dorsum of the left foot. The ulceration of the left calf persists as well. It is clustered. It is highly irregular in shape and configuration. It does, however, appear to be much improved, with areas of increasing epithelialization. There is no sign of infection or cellulitis. Dimensions are documented elsewhere. There is a moderate amount of bioburden. The ulceration on the right anterolateral calf persists as well. There is a moderate amount of bioburden. There is no sign of infection or cellulitis. Dimensions are documented elsewhere. Skin: No rashes Wound Measurements and Assessment WC - Nurse 1 - General Ulcer Measurement Start: 11/22/19 11:22 Freq: Status: Active Protocol: Activity Type Activity Date Activity User E-Sign Co-Sign Detail Recorded Client Recorded Date Recorded By Document 11/22/19 11:23 [email or web address] [id number] 11/22/19 11:33 TANYA 11/22/19 11:23 Wound Center Nurse 1 [Ulcer Assessment] #6- R LAT DICKENS -Combined with other wound No -Current Size (cm) - Length 2.1 -Current Size (cm) - Width 2.4 -Current Size (cm) - Depth 0.2 -Total Square Cm 5.04 -Photo Taken Yes -Epithelialization Small 1-33% -Tunneling No -Undermining/Tunneling No -Circular Undermining No -Exudate Amt Large -Exudate Type Serosanguineous -Wound Margin Flat & Intact -Granulation Amt Medium (34-66%) -Granulation Quality Red -Slough/Fibrin Yes -Necrosis Amt Medium (34-66%) -Necrotic Tissue Type Adherent Slough -Structure Exposed N/A -Texture (Nahomy-wound Skin Appearance) Assessed -Moisture (Nahomy-wound Skin Appearance Assessed,Dry/ ) Scaly -Color (Nahomy-wound Skin Appearance) Assessed -Temperature (Nahomy-wound Skin No Abnormality Appearance) (Pt Warm) -Tenderness on Palpation (Nahomy-wound No Skin Appearance) -Ulcer Cleansing Wound Cleanser -Foul Odor after Cleansing No -Anesthetic Used 4% Lidocaine Solution #5 LLE- Circumfrential -Combined with other wound No -Current Size (cm) - Length 17 -Current Size (cm) - Width 23.0 -Current Size (cm) - Depth 0.1 -Total Square Cm 391.0 -Photo Taken Yes -Epithelialization Small 1-33% -Tunneling No -Undermining/Tunneling No -Circular Undermining No -Exudate Amt Large -Exudate Type Serosanguineous -Wound Margin Flat & Intact -Granulation Amt Medium (34-66%) -Granulation Quality Red -Slough/Fibrin Yes -Necrosis Amt Medium (34-66%) -Necrotic Tissue Type Adherent Slough -Structure Exposed N/A -Texture (Nahomy-wound Skin Appearance) Assessed, Localized Edema -Moisture (Nahomy-wound Skin Appearance Assessed,Dry/ ) Scaly -Color (Nahomy-wound Skin Appearance) Assessed, Hemosiderin Staining -Temperature (Nahomy-wound Skin No Abnormality Appearance) (Pt Warm) -Tenderness on Palpation (Nahomy-wound No Skin Appearance) -Ulcer Cleansing Wound Cleanser -Foul Odor after Cleansing No -Anesthetic Used 4% Lidocaine Solution [Edema Assessment] -Lower Limb Edema Present Yes -Right Calf (cm) 31.7 -Right Ankle (cm) 23.0 -Left Calf (cm) 33 -Point of measurement (cm from the 25.5 medial instep) WC - Nurse 2 - General Ulcer CM Notes Start: 11/22/19 11:22 Freq: Status: Active Protocol: Activity Type Activity Date Activity User E-Sign Co-Sign Detail Recorded Client Recorded Date Recorded By Document 11/22/19 11:51 DV [id number] 11/22/19 12:06 DV 11/22/19 11:51 Wound Center Nurse 2 [Procedure/Treatment] #6- R LAT DICKENS -Time 11:57 -Correct Patient Yes -Correct Side, Site, Position Yes -Correct Procedure Yes -Procedure Performed Yes -Type of Procedure Debridement -Clinical Debridement Subcutaneous -Post Debridement Size (cm) - Length 1.9 -Post Debridement Size (cm) - Width 2.0 -Post Debridement Size (cm) - Depth 0.3 -Total Square Cm 3.80 -Wound/Ulcer Outcome Not Healed -Ulcer Cleansing Rinsed/ Irrigated with Saline -Foul Odor after Cleansing No -Bioengineered Tissue Yes -Type of bioengineered Tissue GRAFIX-Core -Expiration Date 06/15/24 -Product Lot Number [id number] -Percent Used 100 -Saline Lot Number N/A -Topical Lidocaine (%) 4 -Bleeding Controlled with Pressure -Offloading No -Treatment Response Procedure Tolerated Well #5 LLE- Circumfrential -Time 12:00 -Correct Patient Yes -Correct Side, Site, Position Yes -Correct Procedure Yes -Procedure Performed Yes -Type of Procedure Debridement -Clinical Debridement Subcutaneous -Post Debridement Size (cm) - Length 13.5 -Post Debridement Size (cm) - Width 9.0 -Post Debridement Size (cm) - Depth 0.2 -Total Square Cm 121.50 -Wound/Ulcer Outcome Not Healed -Ulcer Cleansing Rinsed/ Irrigated with Saline -Foul Odor after Cleansing No -Bioengineered Tissue No -Bleeding Controlled with Pressure -Offloading No -Treatment Response Procedure Tolerated Well [See Physician Procedure note for Specifics] Pain Scale: 0-10 Numeric [Pain] -Is Patient Pain Free? Yes Musculoskeletal: No Muscle Wasting Neurological: Cranial nerves II-XII grossly intact, Neuro grossly intact Psych/Mental Status: Normal Affect, Appropriate, Alert and oriented to time, place, person, mood and affect Debridement Note Post-Debridement Measurements/Treatment WC - Nurse 2 - General Ulcer CM Notes Start: 11/22/19 11:22 Freq: Status: Active Protocol: Activity Type Activity Date Activity User E-Sign Co-Sign Detail Recorded Client Recorded Date Recorded By Document 11/22/19 11:51 DV [id number] 11/22/19 12:06 DV 11/22/19 11:51 Wound Center Nurse 2 #6- R LAT DICKENS -Time 11:57 -Correct Patient Yes -Correct Side, Site, Position Yes -Correct Procedure Yes -Procedure Performed Yes -Type of Procedure Debridement -Clinical Debridement Subcutaneous -Post Debridement Size (cm) - Length 1.9 -Post Debridement Size (cm) - Width 2.0 -Post Debridement Size (cm) - Depth 0.3 -Total Square Cm 3.80 -Wound/Ulcer Outcome Not Healed -Ulcer Cleansing Rinsed/ Irrigated with Saline -Foul Odor after Cleansing No -Bioengineered Tissue Yes -Type of bioengineered Tissue GRAFIX-Core -Expiration Date 06/15/24 -Product Lot Number [id number] -Percent Used 100 -Saline Lot Number N/A -Topical Lidocaine (%) 4 -Bleeding Controlled with Pressure -Offloading No -Treatment Response Procedure Tolerated Well #5 LLE- Circumfrential -Time 12:00 -Correct Patient Yes -Correct Side, Site, Position Yes -Correct Procedure Yes -Procedure Performed Yes -Type of Procedure Debridement -Clinical Debridement Subcutaneous -Post Debridement Size (cm) - Length 13.5 -Post Debridement Size (cm) - Width 9.0 -Post Debridement Size (cm) - Depth 0.2 -Total Square Cm 121.50 -Wound/Ulcer Outcome Not Healed -Ulcer Cleansing Rinsed/ Irrigated with Saline -Foul Odor after Cleansing No -Bioengineered Tissue No -Bleeding Controlled with Pressure -Offloading No -Treatment Response Procedure Tolerated Well Pain Scale: 0-10 Numeric Is Patient Pain Free? Yes Laterality: Left - Calf Type of Debridement: Excisional debridement Anesthesia Used: 5% Lidocaine Gel Depth: Down to and including healthy tissue, in the subcutaneous layer Percentage of wound debrided: 100 Instrument Used: 5mm curette Tissue Removed: Bioburden and nonviable tissue Severity: Fat Layer Exposed Amount of bleeding with debridement: Mild Bleeding Controlled with: Compression and gauze Patient tolerated procedure well With respect to the ulceration on the right anterolateral calf, an excisional debridement was initially performed, as documented herein. The excisional debridement was well-tolerated. Following the debridement process, a 2 cm x 3 cm Integra AmnioExcel allograft was removed from its sterile packaging, it was placed topically on the right calf wound. An Adaptic touch was then placed, and secured using Steri-Strips. A dry, sterile gauze dressing was applied. The right lower extremity was then wrapped with a 3M 2 layer compression wrap. The entire procedure was well-tolerated by the patient. - Additional Wound Laterality: Right - Anterolateral calf Type of Debridement: Excisional debridement Anesthesia Used: 5% Lidocaine Gel Depth: Down to and including healthy tissue, in the subcutaneous layer Percentage of wound debrided: 100 Instrument Used: 5mm curette Tissue Removed: Bioburden and nonviable tissue Severity: Fat Layer Exposed Amount of bleeding with debridement: Mild Bleeding Controlled with: Compression and gauze Patient tolerated procedure: Patient tolerated procedure well Assessment/Plan Active Problems Ulcer of right calf (Chronic) Right leg swelling (Chronic) Leg edema, right (Chronic) Chronic venous hypertension with inflammation involving left side (Chronic) Left leg swelling (Chronic) Varicose veins with ulcer and inflammation (Chronic) Leg edema, left (Chronic) Chronic venous insufficiency (Chronic) Lymphedema of left leg (Chronic) 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 She has a large irregular ulceration on the left lower extremity which is related to her venous disease. The patient has demonstrated slow but progressive improvement. She presented recently with a new ulceration on the right lateral calf. The etiology of this new ulceration is uncertain. There is noted to be a large amount of bioburden and nonviable tissue. Swab cultures were obtained for both aerobic and anaerobic growth. The results revealed Staphylococcus aureus, very rare in amount. This was thought likely to be a contaminant or skin lisette. However, a second such culture, several weeks later, again revealed the growth of Staphylococcus aureus, rare in amount. Because of a second culture, positive for the same organism, and because of a relative failure to see progress related to this ulceration, we treated the patient with an oral antibiotic consistent with recent culture results. We are to continue leg elevation, avoidance of idle standing and sitting, compression, active lifes tyle, weight control measures, etc. She is also to continue using mechanical pneumatic compression pumps 2-3 times daily bilaterally. She is to continue to take a well-balanced, nutritious diet. Plan: We are to continue with conservative measures. These measures are to include leg elevation. She is to continue sleeping on a flat mattress at night. Her legs are to be elevated to heart level, or higher, even during daytime hours. Leg elevation has been recommended as much as possible. The patient is to avoid prolonged idle sitting. Activity has been encouraged. We are to continue the use of one-quarter strength Dakin's solution (0.125%) topically on the ulceration of the left calf. This will be alternated every other day with Silvadene topically. There appears to have been significant improvement in the appearance of the left calf ulceration since the initiation of Dakin's solution, alternating with Silvadene. XtraSorb will continue to be used for control of exudative drainage. We have placed an AmnioExcel allograft to the ulceration of the right anterolateral calf, which will be left intact and undisturbed until the patient's return visit in 1 week. SurePress compression wrap will be used daily in the left lower extremity. Mechanical pneumatic compression pumps are to be used twice or 3 times daily. According to the patient's , the p atient has become increasingly more difficult to manage in the home setting, due to her Alzheimer's dementia, which has resulted in some noncompliance. Patient is to continue the use of Vasculera orally on a daily basis. Nutritional optimization has been recommended. The patient will return for reevaluation in 1 week. It is anticipated that we will continue to use allograft and treatment for the right calf ulceration, the first of which was administered today. Patient weight is 160 pounds. Patient is 5 feet 9 inches tall. BMI is 23.6. BMI is reasonable. The patient is not a smoker. Influenza vaccine was not administered.
[2019-11-29 12:00] VITALS: BP 151/74; PULSE 79; RESP 16; TEMP 36.6
--- NOTE | 2019-11-29 12:47 | PCM.WC.HP ---
(1) Ulcer of right calf Status: Chronic Current Visit: Yes Qualifiers: Non-pressure ulcer stage: with fat layer exposed Code(s): L97.219 - Non-pressure chronic ulcer of right calf with unspecified severity (2) Right leg swelling Status: Chronic Current Visit: Yes Code(s): M79.89 - Other specified soft tissue disorders (3) Leg edema, right Status: Chronic Current Visit: Yes Code(s): R60.0 - Localized edema (4) Chronic venous hypertension with inflammation involving left side Status: Chronic Current Visit: Yes Code(s): I87.322 - Chronic venous hypertension (idiopathic) with inflammation of left lower extremity (5) Left leg swelling Status: Chronic Current Visit: Yes Code(s): M79.89 - Other specified soft tissue disorders (6) Varicose veins with ulcer and inflammation Status: Chronic Current Visit: Yes Code(s): I83.209 - Varicose veins of unspecified lower extremity with both ulcer of unspecified site and inflammation; L97.909 - Non-pressure chronic ulcer of unspecified part of unspecified lower leg with unspecified severity (7) Leg edema, left Status: Chronic Current Visit: Yes Code(s): R60.0 - Localized edema (8) History of DVT (deep vein thrombosis) Status: Chronic Current Visit: No Code(s): Z86.718 - Personal history of other venous thrombosis and embolism Comment: left lower ext (9) Chronic venous insufficiency Status: Chronic Current Visit: Yes (10) Lymphedema of left leg Status: Chronic Current Visit: Yes Code(s): I89.0 - Lymphedema, not elsewhere classified (11) 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 Status: Chronic Current Visit: Yes Code(s): I87.039 - Postthrombotic syndrome with ulcer and inflammation of unspecified lower extremity (12) Calf ulcer Status: Chronic Current Visit: Yes Code(s): L97.209 - Non-pressure chronic ulcer of unspecified calf with unspecified severity (13) chronic left lower ext wound Status: Chronic Current Visit: Yes History of Present Illness Date of Service: 11/29/19 Chief Complaint: Chronic venous insufficiency, chronic venous hypertension with inflammation and ulceration, varicose veins with inflammation and ulceration, post phlebitic syndrome with inflammation and ulceration,leg swelling, leg edema, lymphedema, venous stasis ulceration-left lower extremity History of Wound: This is a 79-year-old white female with a long-standing history of chronic venous disease and swelling in her left lower extremity. This has been present for many years. She has a large ulceration located between her left knee and ankle, which is quite large and irregular in shape, and also highly exudative. 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 She has also previously undergone successful endovenous laser ablation of the left great and small saphenous veins. Healing of the patient's left lower extremity ulceration has been slow, but progressive. A number of healing measures have been implemented in the past, without success. We are currently using Silvadene topically and Xtrasorb for absorption of exudate. 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 (Chronic) Calf ulcer (Chronic) chronic left lower ext wound (Chronic) Surgical History: appendectomy, hysterectomy Allergies/Adverse Reactions: Allergies Latex, Natural Rubber Allergy (Verified 07/12/13 11:34) Rash Sulfa (Sulfonamide Antibiotics) Allergy (Verified 07/12/13 11:34) Hives trimethoprim Allergy (Verified 07/12/13 11:34) Hives Home Medications: Ambulatory Orders Medication Instructions Recorded Aspirin [Aspirin, Baby] 81 mg PO DAILY@0800 07/12/13 Calcium Carb/Vitamin D [Os-Mo 1 tablet PO DAILY@0800 07/12/13 500MG + D] Clopidogrel Bisulfate [Plavix] 75 mg PO DAILY 07/12/13 Doxepin HCl [Sinequan] 100 mg PO BID 07/12/13 Doxycycline Monohydrate [Monodox] 100 mg PO BID 07/12/13 [place]-3 Fatty Acids/Fish Oil [Fish 1 each PO DAILY 07/12/13 Oil 1,000 mg Softgel] Vitamin B12 500 mg PO DAILY 10/01/13 Vitamin C 500 mg PO DAILY 07/12/13 proMETHazine soln (6.25mg/5mL) 5 ml PO Q4H PRN PRN 07/12/13 [Phenergan Plain] Prednisone [PredniSONE] 200 mg PO DAILY 07/03/14 Valacyclovir HCl [Valacyclovir] 500 mg PO DAILY 07/03/14 Smoking Status: Never smoker Tobacco Use: Non-smoker Review of Systems Constitutional: Denies: Chills, Fever, Weight Change Eyes: Denies: Pain, Vision Change HEENT: Denies: Difficulty Hearing, Difficulty Swallowing, Sinus Congestion Cardiovascular: Denies: Chest Pain, Palpitations Respiratory: Denies: Cough, Shortness of Breath Gastrointestinal: Denies: Diarrhea, Nausea, Vomiting Genitourinary: Denies: Dysuria, Hematuria Endocrine: Denies: Heat/ Cold Intolerance, Polydipsia, Polyuria Hematologic/ Lymphatic: Denies: Easy Bruising, Easy Bleeding - Physical Exam Vital Signs Temp Pulse Resp BP 98 F 79 16 151/74 H 11/29/19 12:00 11/29/19 12:00 11/29/19 12:00 11/29/19 12:00 General: Alert, Oriented x3, Cooperative, No apparent distress, Well developed, Well nourished HEENT: Atraumatic, PERRLA, EOMI, Normocephalic Oral: Moist Mucosa Neck: No JVD Lungs: Normal air movement Abdomen: Non-Distended Extremities: No clubbing, No cyanosis, No Calf Tenderness, - - Swelling and edema persist in the patient's lower extremities. It is much more profound in the left lower extremity. It is chronic in nature. It is most notable on the dorsum of the left foot. The ulceration of the left calf persists, though with significant improvement. There are increasing areas of epithelialization. There is no sign of infection or cellulitis. Dimensions are documented elsewhere. The ulceration on the right lateral calf persists as well. Dimensions are documented elsewhere. There is no sign of infection or cellulitis. The skin graft substitute placed last week, AmnioExcel, is seen to remain in place, largely intact. There is no sign of infection or cellulitis. Wound Measurements and Assessment WC - Nurse 1 - General Ulcer Measurement Start: 11/22/19 11:22 Freq: Status: Active Protocol: Activity Type Activity Date Activity User E-Sign Co-Sign Detail Recorded Client Recorded Date Recorded By Document 11/29/19 12:00 [facility] [id number] 11/29/19 12:14 [facility] 11/29/19 12:00 Wound Center Nurse 1 [Ulcer Assessment] #6- R LAT DICKENS -Combined with other wound No -Current Size (cm) - Length 2 -Current Size (cm) - Width 2 -Current Size (cm) - Depth 0.2 -Total Square Cm 4 -Photo Taken No -Epithelialization Small 1-33% -Tunneling No -Undermining/Tunneling No -Circular Undermining No -Exudate Amt Small -Exudate Type Serosanguineous -Wound Margin Distinct, Outline Attached -Granulation Amt Large (67-100%) -Granulation Quality Red -Slough/Fibrin Yes -Necrosis Amt Small (1-33%) -Necrotic Tissue Type Adherent Slough -Texture (Nahomy-wound Skin Appearance) Assessed, Scarring -Moisture (Nahomy-wound Skin Appearance Assessed,Dry/ ) Scaly -Color (Nahomy-wound Skin Appearance) Assessed, Erythema -Temperature (Nahomy-wound Skin No Abnormality Appearance) (Pt Warm) -Tenderness on Palpation (Nahomy-wound No Skin Appearance) -Ulcer Cleansing soapy water -Foul Odor after Cleansing No -Anesthetic Used 4% Lidocaine Solution #5 LLE- Circumfrential -Combined with other wound No -Current Size (cm) - Length 13 -Current Size (cm) - Width 29.3 -Current Size (cm) - Depth 0.2 -Total Square Cm 380.9 -Photo Taken No -Epithelialization Small 1-33% -Tunneling No -Undermining/Tunneling No -Circular Undermining No -Exudate Amt Medium -Exudate Type Serosanguineous -Wound Margin Distinct, Outline Attached -Granulation Amt Medium (34-66%) -Granulation Quality Pale,Red -Slough/Fibrin Yes -Necrosis Amt Medium (34-66%) -Necrotic Tissue Type Adherent Slough -Texture (Nahomy-wound Skin Appearance) Assessed, Scarring -Moisture (Nahomy-wound Skin Appearance Assessed,Dry/ ) Scaly -Color (Nahomy-wound Skin Appearance) Assessed, Hemosiderin Staining -Temperature (Nahomy-wound Skin No Abnormality Appearance) (Pt Warm) -Tenderness on Palpation (Nahomy-wound No Skin Appearance) -Ulcer Cleansing soapy water -Foul Odor after Cleansing No -Anesthetic Used 4% Lidocaine Solution [Edema Assessment] -Lower Limb Edema Present Yes -Right Calf (cm) 31.5 -Right Ankle (cm) 22.6 -Left Calf (cm) 37 -Left Ankle (cm) 23.6 ANNA - Nurse 2 - General Ulcer CM Notes Start: 11/22/19 11:22 Freq: Status: Active Protocol: Activity Type Activity Date Activity User E-Sign Co-Sign Detail Recorded Client Recorded Date Recorded By Document 11/29/19 12:35 DV [id number] 11/29/19 12:39 DV 11/29/19 12:35 Wound Center Nurse 2 [Procedure/Treatment] #6- R LAT DICKENS -Time 12:35 -Correct Patient Yes -Correct Side, Site, Position Yes -Correct Procedure No -Procedure Performed No -Post Debridement Size (cm) - Length 2.0 -Post Debridement Size (cm) - Width 2.0 -Post Debridement Size (cm) - Depth 0.2 -Total Square Cm 4.00 -Wound/Ulcer Outcome Not Healed #5 LLE- Circumfrential -Time 12:36 -Correct Patient Yes -Correct Side, Site, Position Yes -Correct Procedure Yes -Procedure Performed Yes -Type of Procedure Debridement -Clinical Debridement Subcutaneous -Post Debridement Size (cm) - Length 13 -Post Debridement Size (cm) - Width 13 -Post Debridement Size (cm) - Depth 0.2 -Total Square Cm 169 -Wound/Ulcer Outcome Not Healed -Ulcer Cleansing Rinsed/ Irrigated with Saline -Foul Odor after Cleansing No -Bioengineered Tissue No -Bleeding Controlled with Pressure -Offloading No -Treatment Response Procedure Tolerated Well [See Physician Procedure note for Specifics] Pain Scale: 0-10 Numeric [Pain] -Is Patient Pain Free? Yes Debridement Note Post-Debridement Measurements/Treatment ANNA - Nurse 2 - General Ulcer CM Notes Start: 11/22/19 11:22 Freq: Status: Active Protocol: Activity Type Activity Date Activity User E-Sign Co-Sign Detail Recorded Client Recorded Date Recorded By Document 11/22/19 11:51 DV [id number] 11/22/19 12:06 DV Document 11/29/19 12:35 DV [id number] 11/29/19 12:39 DV 11/22/19 11/29/19 11:51 12:35 Wound Center Nurse 2 #6- R LAT DICKENS -Time 11:57 12:35 -Correct Patient Yes Yes -Correct Side, Site, Position Yes Yes -Correct Procedure Yes No -Procedure Performed Yes No -Type of Procedure Debridement -Clinical Debridement Subcutaneous -Post Debridement Size (cm) - Length 1.9 2.0 -Post Debridement Size (cm) - Width 2.0 2.0 -Post Debridement Size (cm) - Depth 0.3 0.2 -Total Square Cm 3.80 4.00 -Wound/Ulcer Outcome Not Healed Not Healed -Ulcer Cleansing Rinsed/ Irrigated with Saline -Foul Odor after Cleansing No -Bioengineered Tissue Yes -Type of bioengineered Tissue GRAFIX-Core -Expiration Date 06/15/24 -Product Lot Number [id number] -Percent Used 100 -Saline Lot Number N/A -Topical Lidocaine (%) 4 -Bleeding Controlled with Pressure -Offloading No -Treatment Response Procedure Tolerated Well #5 LLE- Circumfrential -Time 12:00 12:36 -Correct Patient Yes Yes -Correct Side, Site, Position Yes Yes -Correct Procedure Yes Yes -Procedure Performed Yes Yes -Type of Procedure Debridement Debridement -Clinical Debridement Subcutaneous Subcutaneous -Post Debridement Size (cm) - Length 13.5 13 -Post Debridement Size (cm) - Width 9.0 13 -Post Debridement Size (cm) - Depth 0.2 0.2 -Total Square Cm 121.50 169 -Wound/Ulcer Outcome Not Healed Not Healed -Ulcer Cleansing Rinsed/ Rinsed/ Irrigated with Irrigated with Saline Saline -Foul Odor after Cleansing No No -Bioengineered Tissue No No -Bleeding Controlled with Pressure Pressure -Offloading No No -Treatment Response Procedure Procedure Tolerated Well Tolerated Well Pain Scale: 0-10 Numeric Is Patient Pain Free? Yes Yes Laterality: Left - Calf Type of Debridement: Excisional debridement Anesthesia Used: 5% Lidocaine Gel Depth: Down to and including healthy tissue, in the subcutaneous layer Percentage of wound debrided: 100 Instrument Used: 5mm curette Tissue Removed: Bioburden and nonviable tissue Severity: Fat Layer Exposed Amount of bleeding with debridement: Mild Bleeding Controlled with: Compression and gauze Patient tolerated procedure well And closely examining the ulceration of the right lateral calf, it could be seen that the AmnioExcel allograft, placed 1 week ago, was largely intact. Therefore, debridement was not performed of the right lateral calf ulceration. 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 She has a large irregular ulceration on the left lower extremity which is related to her venous disease. The patient has demonstrated slow but progressive improvement. She presented recently with a new ulceration on the right lateral calf. The etiology of this new ulceration is uncertain. Swab cultures were obtained for both aerobic and anaerobic growth. The results revealed Staphylococcus aureus, very rare in amount. This was thought likely to be a contaminant or skin lisette. However, a second such culture, several weeks later, again revealed the growth of Staphylococcus aureus, rare in amount. Because of a second culture, positive for the same organism, and because of a relative failure to see progress related to this ulceration, we treated the patient with an oral antibiotic consistent with recent culture results. We are to continue leg elevation, avoidance of idle standing and sitting, compression, active lifestyle, weight control measures, etc. She is also to continue using mechanical pneumatic compression pumps 2-3 times daily bilaterally. She is to continue to take a well-balanced, nutritious diet. Plan: We are to continue with conservative measures. These measures are to include leg elevation. She is to continue sleeping on a flat mattress at night. Her legs are to be elevated to heart level, or higher, even during daytime hours. Leg elevation has been recommended as much as possible. The patient is to avoid prolonged idle sitting. Activity has been encouraged. We are to continue the use of one-quarter strength Dakin's solution (0.125%) topically on the ulceration of the left calf. This will be alternated every other day with Silvadene topically. There appears to have been significant improvement in the appearance of the left calf ulceration since the initiation of Dakin's solution, alternating with Silvadene. XtraSorb will continue to be used for control of exudative drainage. We have placed an AmnioExcel allograft to the ulceration of the right anterolateral calf 1 week ago, which will be left intact and undisturbed until the patient's return visit in 1 week. Inspection today reveals the allograft, placed last week, to remain intact. SurePress compression wrap will be used daily in the left lower extremity. Mechanical pneumatic compression pumps are to be used twice or 3 times daily for the left lower extremity. According to the patient's , the patient has become increasingly more difficult to manage in the home setting, due to her Alzheimer's dementia, which has resulted in some noncompliance. Patient is to continue the use of Vasculera orally on a daily basis. Nutritional optimization has been recommended. The patient will return for reevaluation in 1 week. It is anticipated that we will continue to use allograft and treatment for the right calf ulceration, the first of which was administered 1 week ago. At the patient's request, we have again prescribed Dilaudid 2 mg, which the patient takes only sparingly, typically as a prelude to anticipated debridements. 20 pills have been prescribed. Patient weight is 160 pounds. Patient is 5 feet 9 inches tall. BMI is 23.6. BMI is reasonable. The patient is not a smoker. Influenza vaccine was not administered.
[2019-12-06 11:56] VITALS: BP 138/71; PULSE 80; RESP 16; TEMP 36.6
--- NOTE | 2019-12-06 14:37 | PCM.WC.HP ---
(1) Ulcer of right calf Status: Chronic Current Visit: Yes Qualifiers: Non-pressure ulcer stage: with fat layer exposed Code(s): L97.219 - Non-pressure chronic ulcer of right calf with unspecified severity (2) Right leg swelling Status: Chronic Current Visit: Yes Code(s): M79.89 - Other specified soft tissue disorders (3) Leg edema, right Status: Chronic Current Visit: Yes Code(s): R60.0 - Localized edema (4) Chronic venous hypertension with inflammation involving left side Status: Chronic Current Visit: Yes Code(s): I87.322 - Chronic venous hypertension (idiopathic) with inflammation of left lower extremity (5) Left leg swelling Status: Chronic Current Visit: Yes Code(s): M79.89 - Other specified soft tissue disorders (6) Varicose veins with ulcer and inflammation Status: Chronic Current Visit: Yes Code(s): I83.209 - Varicose veins of unspecified lower extremity with both ulcer of unspecified site and inflammation; L97.909 - Non-pressure chronic ulcer of unspecified part of unspecified lower leg with unspecified severity (7) Leg edema, left Status: Chronic Current Visit: Yes Code(s): R60.0 - Localized edema (8) History of DVT (deep vein thrombosis) Status: Chronic Current Visit: No Code(s): Z86.718 - Personal history of other venous thrombosis and embolism Comment: left lower ext (9) Chronic venous insufficiency Status: Chronic Current Visit: Yes (10) Lymphedema of left leg Status: Chronic Current Visit: Yes Code(s): I89.0 - Lymphedema, not elsewhere classified (11) 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 Status: Chronic Current Visit: Yes Code(s): I87.039 - Postthrombotic syndrome with ulcer and inflammation of unspecified lower extremity (12) Calf ulcer Status: Chronic Current Visit: Yes Code(s): L97.209 - Non-pressure chronic ulcer of unspecified calf with unspecified severity (13) chronic left lower ext wound Status: Chronic Current Visit: Yes History of Present Illness Date of Service: 12/06/19 Chief Complaint: Chronic venous insufficiency, chronic venous hypertension with inflammation and ulceration, varicose veins with inflammation and ulceration, post phlebitic syndrome with inflammation and ulceration,leg swelling, leg edema, lymphedema, venous stasis ulceration-left lower extremity History of Wound: This is a 79-year-old white female with a long-standing history of chronic venous disease and swelling in her left lower extremity. This has been present for many years. She has a large ulceration located between her left knee and ankle, which is quite large and irregular in shape, and also highly exudative. 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 She has also previously undergone successful endovenous laser ablation of the left great and small saphenous veins. Healing of the patient's left lower extremity ulceration has been slow, but progressive. A number of healing measures have been implemented in the past, without success. We are currently using Silvadene topically and Xtrasorb for absorption of exudate. 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 (Chronic) Calf ulcer (Chronic) chronic left lower ext wound (Chronic) Surgical History: appendectomy, hysterectomy Allergies/Adverse Reactions: Allergies Latex, Natural Rubber Allergy (Verified 07/12/13 11:34) Rash Sulfa (Sulfonamide Antibiotics) Allergy (Verified 07/12/13 11:34) Hives trimethoprim Allergy (Verified 07/12/13 11:34) Hives Home Medications: Ambulatory Orders Medication Instructions Recorded Aspirin [Aspirin, Baby] 81 mg PO DAILY@0800 07/12/13 Calcium Carb/Vitamin D [Os-Mo 1 tablet PO DAILY@0800 07/12/13 500MG + D] Clopidogrel Bisulfate [Plavix] 75 mg PO DAILY 07/12/13 Doxepin HCl [Sinequan] 100 mg PO BID 07/12/13 Doxycycline Monohydrate [Monodox] 100 mg PO BID 07/12/13 [place]u-3 Fatty Acids/Fish Oil [Fish 1 each PO DAILY 07/12/13 Oil 1,000 mg Softgel] Vitamin B12 500 mg PO DAILY 10/01/13 Vitamin C 500 mg PO DAILY 07/12/13 proMETHazine soln (6.25mg/5mL) 5 ml PO Q4H PRN PRN 07/12/13 [Phenergan Plain] Prednisone [PredniSONE] 200 mg PO DAILY 07/03/14 Valacyclovir HCl [Valacyclovir] 500 mg PO DAILY 07/03/14 Smoking Status: Never smoker Tobacco Use: Non-smoker Review of Systems Constitutional: Denies: Chills, Fever, Weight Change Eyes: Denies: Pain, Vision Change HEENT: Denies: Difficulty Hearing, Difficulty Swallowing, Sinus Congestion Cardiovascular: Denies: Chest Pain, Palpitations Respiratory: Denies: Cough, Shortness of Breath Gastrointestinal: Denies: Diarrhea, Nausea, Vomiting Genitourinary: Denies: Dysuria, Hematuria Endocrine: Denies: Heat/ Cold Intolerance, Polydipsia, Polyuria Hematologic/ Lymphatic: Denies: Easy Bruising, Easy Bleeding - Physical Exam Vital Signs Temp Pulse Resp BP 98 F 80 16 138/71 H 12/06/19 11:56 12/06/19 11:56 12/06/19 11:56 12/06/19 11:56 General: Alert, Oriented x3, Cooperative, No apparent distress, Well developed, Well nourished HEENT: Atraumatic, PERRLA, EOMI, Normocephalic Oral: Moist Mucosa Neck: No JVD Lungs: Normal air movement Abdomen: Non-Distended Extremities: No clubbing, No cyanosis, No Calf Tenderness, - - Swelling and edema persist on the patient's lower extremities. It is much more pronounced on the left lower extremity. It is most notable on the dorsum of the left foot. This has been chronic in nature. The ulceration of the left calf persists as well, though with increasing areas of epithelialization. The remaining ulceration is highly irregular in shape and clustered. There is no sign of infection or cellulitis. Dimensions are documented elsewhere. There is a moderate amount of bioburden. The ulceration on the right lateral calf persists as well. There is evidence of peripheral epithelialization. There is a small amount of bioburden. There is no sign of infection or cellulitis. Dimensions are documented elsewhere. Skin: No rashes Wound Measurements and Assessment WC - Nurse 1 - General Ulcer Measurement Start: 11/22/19 11:22 Freq: Status: Active Protocol: Activity Type Activity Date Activity User E-Sign Co-Sign Detail Recorded Client Recorded Date Recorded By Document 12/06/19 11:56 [facility] [id number] 12/06/19 12:12 [facility] 12/06/19 11:56 Wound Center Nurse 1 [Ulcer Assessment] #6- R LAT DICKENS -Combined with other wound No -Current Size (cm) - Length 2.1 -Current Size (cm) - Width 2.3 -Current Size (cm) - Depth 0.3 -Total Square Cm 4.83 -Photo Taken No -Epithelialization None Present -Tunneling No -Undermining/Tunneling No -Circular Undermining No -Exudate Amt Small -Exudate Type Serosanguineous -Wound Margin Distinct, Outline Attached -Granulation Amt None Present (0 %) -Slough/Fibrin Yes -Necrosis Amt Large (67-100%) -Necrotic Tissue Type Adherent Slough -Texture (Nahomy-wound Skin Appearance) Assessed, Scarring -Moisture (Nahomy-wound Skin Appearance Assessed,Dry/ ) Scaly -Color (Nahomy-wound Skin Appearance) Assessed -Temperature (Nahomy-wound Skin No Abnormality Appearance) (Pt Warm) -Tenderness on Palpation (Nahomy-wound Yes Skin Appearance) -Ulcer Cleansing SOAPY WATER -Foul Odor after Cleansing No -Anesthetic Used 4% Lidocaine Solution #5 LLE- Circumfrential -Combined with other wound No -Current Size (cm) - Length 11 -Current Size (cm) - Width 25 -Current Size (cm) - Depth 0.2 -Total Square Cm 275 -Photo Taken No -Epithelialization Small 1-33% -Tunneling No -Undermining/Tunneling No -Circular Undermining No -Exudate Amt Small -Exudate Type Serosanguineous -Wound Margin Distinct, Outline Attached -Granulation Amt Medium (34-66%) -Granulation Quality Red -Slough/Fibrin Yes -Necrosis Amt Large (67-100%) -Necrotic Tissue Type Adherent Slough -Texture (Nahomy-wound Skin Appearance) Assessed, Scarring -Moisture (Nahomy-wound Skin Appearance Assessed,Dry/ ) Scaly -Color (Nahomy-wound Skin Appearance) Assessed, Hemosiderin Staining -Temperature (Nahomy-wound Skin No Abnormality Appearance) (Pt Warm) -Tenderness on Palpation (Nahomy-wound No Skin Appearance) -Ulcer Cleansing SOAPY WATER -Foul Odor after Cleansing No -Anesthetic Used 4% Lidocaine Solution [Edema Assessment] -Lower Limb Edema Present Yes -Right Calf (cm) 31.7 -Right Ankle (cm) 22.9 -Left Calf (cm) 36.1 -Left Ankle (cm) 25.1 WC - Nurse 2 - General Ulcer CM Notes Start: 11/22/19 11:22 Freq: Status: Active Protocol: Activity Type Activity Date Activity User E-Sign Co-Sign Detail Recorded Client Recorded Date Recorded By Document 12/06/19 12:24 DV [id number] 12/06/19 12:43 DV 12/06/19 12:24 Wound Center Nurse 2 [Procedure/Treatment] #6- R LAT DICKENS -Time 12:25 -Correct Patient Yes -Correct Side, Site, Position Yes -Correct Procedure Yes -Procedure Performed Yes -Type of Procedure Debridement -Clinical Debridement Subcutaneous -Post Debridement Size (cm) - Length 1.6 -Post Debridement Size (cm) - Width 1.7 -Post Debridement Size (cm) - Depth 0.3 -Total Square Cm 2.72 -Wound/Ulcer Outcome Not Healed -Ulcer Cleansing Rinsed/ Irrigated with Saline -Foul Odor after Cleansing No -Bioengineered Tissue Yes -Type of bioengineered Tissue GRAFIX-Core -Expiration Date 12/10/23 -Product Lot Number [id number] -Percent Used 90 -Saline Lot Number [id number] -Topical Lidocaine (%) 5 -Bleeding Controlled with Pressure -Treatment Response Procedure Tolerated Well #5 LLE- Circumfrential -Time 12:27 -Correct Patient Yes -Correct Side, Site, Position Yes -Correct Procedure Yes -Procedure Performed Yes -Type of Procedure Debridement -Clinical Debridement Subcutaneous -Post Debridement Size (cm) - Length 11.1 -Post Debridement Size (cm) - Width 25.1 -Post Debridement Size (cm) - Depth 0.2 -Total Square Cm 278.61 -Wound/Ulcer Outcome Not Healed -Ulcer Cleansing Rinsed/ Irrigated with Saline -Foul Odor after Cleansing No -Bioengineered Tissue No -Bleeding Controlled with Pressure -Offloading No -Treatment Response Procedure Tolerated Well [See Physician Procedure note for Specifics] Pain Scale: 0-10 Numeric [Pain] -Is Patient Pain Free? Yes Musculoskeletal: No Muscle Wasting Neurological: Cranial nerves II-XII grossly intact, Neuro grossly intact Psych/Mental Status: Normal Affect, Appropriate, Alert and oriented to time, place, person, mood and affect Debridement Note Post-Debridement Measurements/Treatment WC - Nurse 2 - General Ulcer CM Notes Start: 11/22/19 11:22 Freq: Status: Active Protocol: Activity Type Activity Date Activity User E-Sign Co-Sign Detail Recorded Client Recorded Date Recorded By Document 11/22/19 11:51 DV [id number] 11/22/19 12:06 DV Document 11/29/19 12:35 DV [id number] 11/29/19 12:39 DV Document 12/06/19 12:24 DV [id number] 12/06/19 12:43 DV 11/22/19 11/29/19 12/06/19 11:51 12:35 12:24 Wound Center Nurse 2 #6- R LAT DICKENS -Time 11:57 12:35 12:25 -Correct Patient Yes Yes Yes -Correct Side, Site, Position Yes Yes Yes -Correct Procedure Yes No Yes -Procedure Performed Yes No Yes -Type of Procedure Debridement Debridement -Clinical Debridement Subcutaneous Subcutaneous -Post Debridement Size (cm) - Length 1.9 2.0 1.6 -Post Debridement Size (cm) - Width 2.0 2.0 1.7 -Post Debridement Size (cm) - Depth 0.3 0.2 0.3 -Total Square Cm 3.80 4.00 2.72 -Wound/Ulcer Outcome Not Healed Not Healed Not Healed -Ulcer Cleansing Rinsed/ Rinsed/ Irrigated with Irrigated with Saline Saline -Foul Odor after Cleansing No No -Bioengineered Tissue Yes Yes -Type of bioengineered Tissue GRAFIX-Core GRAFIX-Core -Expiration Date 06/15/24 12/10/23 -Product Lot Number [id number] -Percent Used 100 90 -Saline Lot Number N/[id number] -Topical Lidocaine (%) 4 5 -Bleeding Controlled with Pressure Pressure -Offloading No -Treatment Response Procedure Procedure Tolerated Well Tolerated Well #5 LLE- Circumfrential -Time 12:00 12:36 12:27 -Correct Patient Yes Yes Yes -Correct Side, Site, Position Yes Yes Yes -Correct Procedure Yes Yes Yes -Procedure Performed Yes Yes Yes -Type of Procedure Debridement Debridement Debridement -Clinical Debridement Subcutaneous Subcutaneous Subcutaneous -Post Debridement Size (cm) - Length 13.5 13 11.1 -Post Debridement Size (cm) - Width 9.0 13 25.1 -Post Debridement Size (cm) - Depth 0.2 0.2 0.2 -Total Square Cm 121.50 169 278.61 -Wound/Ulcer Outcome Not Healed Not Healed Not Healed -Ulcer Cleansing Rinsed/ Rinsed/ Rinsed/ Irrigated with Irrigated with Irrigated with Saline Saline Saline -Foul Odor after Cleansing No No No -Bioengineered Tissue No No No -Bleeding Controlled with Pressure Pressure Pressure -Offloading No No No -Treatment Response Procedure Procedure Procedure Tolerated Well Tolerated Well Tolerated Well Pain Scale: 0-10 Numeric Is Patient Pain Free? Yes Yes Yes Laterality: Right - Lateral calf Type of Debridement: Excisional debridement Anesthesia Used: 5% Lidocaine Gel Depth: Down to and including healthy tissue, in the subcutaneous layer Percentage of wound debrided: 100 Instrument Used: 5mm curette Tissue Removed: Bioburden Severity: Fat Layer Exposed Amount of bleeding with debridement: Mild Bleeding Controlled with: Compression and gauze Patient tolerated procedure well Following a routine excisional debridement, which was well-tolerated by the patient, a meshed 4 cm x 4 cm PriMatrix allograft was selected for placement. Upon removal from its sterile packaging, the meshed allograft was cut to the appropriate size and shape. It was then placed topically on the ulcer surface. Because there was ample allograft, a second layer was applied. It was then moistened with collagen hydrogel. Adaptic Touch was applied and anchored securely using Steri-Strips. A dry sterile gauze dressing was then placed. The procedure was well-tolerated by the patient. - Additional Wound Laterality: Left - Calf Type of Debridement: Excisional debridement Anesthesia Used: 5% Lidocaine Gel Depth: Down to and including healthy tissue, in the subcutaneous layer Percentage of wound debrided: 100 Instrument Used: 5mm curette Tissue Removed: Bioburden and nonviable tissue Severity: Fat Layer Exposed Amount of bleeding with debridement: Mild Bleeding Controlled with: Compression and gauze Patient tolerated procedure: Patient tolerated procedure well Assessment/Plan Active Problems Ulcer of right calf (Chronic) Right leg swelling (Chronic) Leg edema, right (Chronic) Chronic venous hypertension with inflammation involving left side (Chronic) Left leg swelling (Chronic) Varicose veins with ulcer and inflammation (Chronic) Leg edema, left (Chronic) Chronic venous insufficiency (Chronic) Lymphedema of left leg (Chronic) 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 She has a large irregular ulceration on the left lower extremity which is related to her venous disease. The patient has demonstrated slow but progressive improvement. She presented recently with a new ulceration on the right lateral calf. The etiology of this new ulceration is uncertain. Swab cultures were obtained for both aerobic and anaerobic growth. The results revealed Staphylococcus aureus, very rare in amount. This was thought likely to be a contaminant or skin lisette. However, a second such culture, several weeks later, again revealed the growth of Staphylococcus aureus, rare in amount. Because of a second culture, positive for the same organism, and because of a relative failure to see progress related to this ulceration, we treated the patient with an oral antibiotic consistent with recent culture results. We are to continue leg elevation, avoidance of idle standing and sitting, compression, active lifestyle, weight control measures, etc. She is also to continue using mechanical pneumatic compression pumps 2-3 times daily in the left lower extremity. She is to continue to take a well-balanced, nutritious diet. Plan: We are to continue with conservative measures. These measures are to include leg elevation. She is to continue sleeping on a flat mattress at night. Her legs are to be elevated to heart level, or higher, even during daytime hours. Leg elevation has been recommended as much as possible. The patient is to avoid prolonged idle sitting. Activity has been encouraged. We are to continue the use of one-quarter strength Dakin's solution (0.125%) topically on the ulceration of the left calf. This will be alternated every other day with Silvadene topically. There appears to have been significant improvement in the appearance of the left calf ulceration since the initiation of Dakin's solution, alternating with Silvadene. XtraSorb will continue to be used for control of exudative drainage. We have placed a meshed PriMatrix allograft to the ulceration of the right anterolateral calf, which will be left undisturbed until the patient's return visit in 1 week. SurePress compression wrap will be used daily in the lower extremities. Mechanical pneumatic compression pumps are to be used twice daily for the left lower extremity. According to the patient's , the patient has become increasingly more difficult to manage in the home setting, due to her Alzheimer's dementia, which has resulted in some noncompliance. Patient is to continue the use of Vasculera orally on a daily basis. Nutritional optimization has been recommended. The patient will return for reevaluation in 1 week. It is anticipated that we will continue to use allograft and treatment for the right calf ulceration, the second of which was applied today. Patient weight is 160 pounds. Patient is 5 feet 9 inches tall. BMI is 23.6. BMI is reasonable. The patient is not a smoker. Influenza vaccine was not administered.
== END 2019-12-10 23:59 ==
LOC: WC 12:00
PROVIDERS: Referring Provider Surgery; Visit Provider Surgery
DX: I83.212 Varicose veins of right lower extremity with both ulcer of calf and inflammation (principal); I83.222 Varicose veins of left lower extremity with both ulcer of calf and inflammation; L97.212 Non-pressure chronic ulcer of right calf with fat layer exposed; L97.222 Non-pressure chronic ulcer of left calf with fat layer exposed; M79.89 Other specified soft tissue disorders; R60.0 Localized edema; Z86.718 Personal history of other venous thrombosis and embolism; I89.0 Lymphedema, not elsewhere classified; Z79.899 Other long term (current) drug therapy; Z79.82 Long term (current) use of aspirin; Z79.52 Long term (current) use of systemic steroids
CPT/HCPCS: 11042; 11045; 15271; 29580; 99213; Q4110; Q4137; G0463

== ENCOUNTER 2020-01-10 12:00 | Outpatient (RCR) | payer MEDICARE, BC, SELFPAY ==
[2019-12-11 00:24] VITALS: BP 138/71; PULSE 80; RESP 16; TEMP 36.6
[2019-12-13 12:01] VITALS: BP 136/59; PULSE 79; RESP 16; TEMP 36.8
--- NOTE | 2019-12-13 12:09 | WC ---
advanced skin product left intact to rt vasques per CM instruction.
--- NOTE | 2019-12-13 13:35 | PCM.WC.HP ---
(1) Ulcer of right calf Status: Chronic Current Visit: Yes Qualifiers: Non-pressure ulcer stage: with fat layer exposed Code(s): L97.219 - Non-pressure chronic ulcer of right calf with unspecified severity (2) Right leg swelling Status: Chronic Current Visit: Yes Code(s): M79.89 - Other specified soft tissue disorders (3) Leg edema, right Status: Chronic Current Visit: Yes Code(s): R60.0 - Localized edema (4) Chronic venous hypertension with inflammation involving left side Status: Chronic Current Visit: Yes Code(s): I87.322 - Chronic venous hypertension (idiopathic) with inflammation of left lower extremity (5) Left leg swelling Status: Chronic Current Visit: Yes Code(s): M79.89 - Other specified soft tissue disorders (6) Varicose veins with ulcer and inflammation Status: Chronic Current Visit: Yes Code(s): I83.209 - Varicose veins of unspecified lower extremity with both ulcer of unspecified site and inflammation; L97.909 - Non-pressure chronic ulcer of unspecified part of unspecified lower leg with unspecified severity (7) Leg edema, left Status: Chronic Current Visit: Yes Code(s): R60.0 - Localized edema (8) May-Thurner syndrome Status: Resolved Current Visit: No Code(s): I87.1 - Compression of vein (9) History of DVT (deep vein thrombosis) Status: Chronic Current Visit: No Code(s): Z86.718 - Personal history of other venous thrombosis and embolism Comment: left lower ext (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 Current Visit: No (11) Cellulitis, leg Status: Resolved Current Visit: No Qualifiers: Code(s): L03.119 - Cellulitis of unspecified part of limb (12) Erythema of skin Status: Resolved Current Visit: No Code(s): L53.9 - Erythematous condition, unspecified (13) Cellulitis of leg Status: Resolved Current Visit: No Qualifiers: Code(s): L03.119 - Cellulitis of unspecified part of limb (14) Cellulitis Status: Resolved Current Visit: No Code(s): L03.90 - Cellulitis, unspecified (15) Chronic venous insufficiency Status: Chronic Current Visit: Yes (16) Lymphedema of left leg Status: Chronic Current Visit: Yes Code(s): I89.0 - Lymphedema, not elsewhere classified (17) 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 Status: Chronic Current Visit: Yes Code(s): I87.039 - Postthrombotic syndrome with ulcer and inflammation of unspecified lower extremity (18) Calf ulcer Status: Chronic Current Visit: Yes Qualifiers: Laterality: left Non-pressure ulcer stage: with fat layer exposed Qualified Code(s): L97.222 - Non-pressure chronic ulcer of left calf with fat layer exposed Code(s): L97.209 - Non-pressure chronic ulcer of unspecified calf with unspecified severity (19) chronic left lower ext wound Status: Chronic Current Visit: Yes History of Present Illness Date of Service: 12/13/19 Chief Complaint: Chronic venous insufficiency, chronic venous hypertension with inflammation and ulceration, varicose veins with inflammation and ulceration, post phlebitic syndrome with inflammation and ulceration,leg swelling, leg edema, lymphedema, venous stasis ulceration-left lower extremity History of Wound: This is a 79-year-old white female with a long-standing history of chronic venous disease and swelling in her left lower extremity. This has been present for many years. She has a large ulceration located between her left knee and ankle, which is quite large and irregular in shape, and also highly exudative. 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 She has also previously undergone successful endovenous laser ablation of the left great and small saphenous veins. Healing of the patient's left lower extremity ulceration has been slow, but progressive. A number of healing measures have been implemented in the past, without success. We are currently using Silvadene topically and Xtrasorb for absorption of exudate. 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 (Chronic) Calf ulcer (Chronic) chronic left lower ext wound (Chronic) Surgical History: appendectomy, hysterectomy Allergies/Adverse Reactions: Allergies Latex, Natural Rubber Allergy (Verified 07/12/13 11:34) Rash Sulfa (Sulfonamide Antibiotics) Allergy (Verified 07/12/13 11:34) Hives trimethoprim Allergy (Verified 07/12/13 11:34) Hives Home Medications: Ambulatory Orders Medication Instructions Recorded Aspirin [Aspirin, Baby] 81 mg PO DAILY@0800 07/12/13 Calcium Carb/Vitamin D [Os-Mo 1 tablet PO DAILY@0800 07/12/13 500MG + D] Clopidogrel Bisulfate [Plavix] 75 mg PO DAILY 07/12/13 Doxepin HCl [Sinequan] 100 mg PO BID 07/12/13 Doxycycline Monohydrate [Monodox] 100 mg PO BID 07/12/13 [place]-3 Fatty Acids/Fish Oil [Fish 1 each PO DAILY 07/12/13 Oil 1,000 mg Softgel] Vitamin B12 500 mg PO DAILY 07/12/13 Vitamin C 500 mg PO DAILY 07/12/13 proMETHazine soln (6.25mg/5mL) 5 ml PO Q4H PRN PRN 07/12/13 [Phenergan Plain] Prednisone [PredniSONE] 200 mg PO DAILY 07/03/14 Valacyclovir HCl [Valacyclovir] 500 mg PO DAILY 07/03/14 Smoking Status: Never smoker Tobacco Use: Non-smoker Review of Systems Constitutional: Denies: Chills, Fever, Weight Change Eyes: Denies: Pain, Vision Change HEENT: Denies: Difficulty Hearing, Difficulty Swallowing, Sinus Congestion Cardiovascular: Denies: Chest Pain, Palpitations Respiratory: Denies: Cough, Shortness of Breath Gastrointestinal: Denies: Diarrhea, Nausea, Vomiting Genitourinary: Denies: Dysuria, Hematuria Endocrine: Denies: Heat/ Cold Intolerance, Polydipsia, Polyuria Hematologic/ Lymphatic: Denies: Easy Bruising, Easy Bleeding - Physical Exam Vital Signs Temp Pulse Resp BP 98.2 F 79 16 136/59 H 12/13/19 12:12/13/19 12:01 12/13/19 12:12/13/19 12:01 General: Alert, Oriented x3, Cooperative, No apparent distress, Well developed, Well nourished HEENT: Atraumatic, PERRLA, EOMI, Normocephalic Oral: Moist Mucosa Neck: No JVD Lungs: Normal air movement Abdomen: Non-Distended Extremities: No clubbing, No cyanosis, No Calf Tenderness, - - Swelling and edema persist in the patient's lower extremities. It is minimal in the right lower extremity. It is most notable in the left lower extremity, particularly on the dorsum of the left foot. This has been chronic in nature. The ulceration of the left calf persists, but continues to show increasing areas of epithelialization. The ulceration of the left calf is diminishing in size. There is a moderate amount of bioburden. There is no sign of infection or cellulitis. Dimensions are documented elsewhere. The ulceration on the right lateral calf persists as well. Dimensions are documented elsewhere. There is no sign of infection or cellulitis. The prior matrix allograft, placed last week, persists largely intact. Skin: No rashes Wound Measurements and Assessment WC - Nurse 1 - General Ulcer Measurement Start: 12/13/19 12:01 Freq: Status: Active Protocol: Activity Type Activity Date Activity User E-Sign Co-Sign Detail Recorded Client Recorded Date Recorded By Document 12/13/19 12:01 [facility] [id number] 12/13/19 12:09 [facility] 12/13/19 12:01 Wound Center Nurse 1 [Ulcer Assessment] #6- R LAT DICKENS -Combined with other wound No -Current Size (cm) - Length 0.1 -Current Size (cm) - Width 0.1 -Current Size (cm) - Depth 0.1 -Total Square Cm 0.01 #5 LLE- Circumfrential -Combined with other wound No -Current Size (cm) - Length 11.5 -Current Size (cm) - Width 19.7 -Current Size (cm) - Depth 0.2 -Total Square Cm 226.55 -Photo Taken No -Epithelialization Small 1-33% -Tunneling No -Undermining/Tunneling No -Circular Undermining No -Exudate Amt Medium -Exudate Type Serosanguineous -Wound Margin Distinct, Outline Attached -Granulation Amt Small (1-33%) -Granulation Quality Pale,Red -Slough/Fibrin Yes -Necrosis Amt Medium (34-66%) -Necrotic Tissue Type Adherent Slough -Texture (Nahomy-wound Skin Appearance) Assessed, Scarring -Moisture (Nahomy-wound Skin Appearance Assessed,Dry/ ) Scaly -Color (Nahomy-wound Skin Appearance) Assessed, Erythema -Temperature (Nahomy-wound Skin No Abnormality Appearance) (Pt Warm) -Tenderness on Palpation (Nahomy-wound No Skin Appearance) -Ulcer Cleansing soapy water -Foul Odor after Cleansing No -Anesthetic Used 4% Lidocaine Solution [Edema Assessment] -Lower Limb Edema Present Yes -Right Calf (cm) 31.5 -Right Ankle (cm) 22.2 -Left Calf (cm) 34.7 -Left Ankle (cm) 24 WC - Nurse 2 - General Ulcer CM Notes Start: 12/13/19 12:01 Freq: Status: Active Protocol: Activity Type Activity Date Activity User E-Sign Co-Sign Detail Recorded Client Recorded Date Recorded By Document 12/13/19 12:18 DV [id number] 12/13/19 12:28 DV 12/13/19 12:18 Wound Center Nurse 2 [Procedure/Treatment] #6- R LAT DICKENS -Time 12:24 -Correct Patient Yes -Correct Side, Site, Position Yes -Correct Procedure No -Procedure Performed No -Wound/Ulcer Outcome Not Healed #5 LLE- Circumfrential -Time 12:19 -Correct Patient Yes -Correct Side, Site, Position Yes -Correct Procedure Yes -Procedure Performed Yes -Type of Procedure Debridement -Clinical Debridement Subcutaneous -Post Debridement Size (cm) - Length 11.5 -Post Debridement Size (cm) - Width 19.7 -Post Debridement Size (cm) - Depth 0.2 -Total Square Cm 226.55 -Wound/Ulcer Outcome Not Healed -Ulcer Cleansing Rinsed/ Irrigated with Saline -Foul Odor after Cleansing No -Bioengineered Tissue No -Bleeding Controlled with Pressure -Offloading No -Treatment Response Procedure Tolerated Well [See Physician Procedure note for Specifics] Pain Scale: 0-10 Numeric [Pain] -Is Patient Pain Free? Yes Musculoskeletal: No Muscle Wasting Neurological: Cranial nerves II-XII grossly intact, Neuro grossly intact Psych/Mental Status: Normal Affect, Appropriate, Alert and oriented to time, place, person, mood and affect Debridement Note Post-Debridement Measurements/Treatment ANNA - Nurse 2 - General Ulcer CM Notes Start: 12/13/19 12:01 Freq: Status: Active Protocol: Activity Type Activity Date Activity User E-Sign Co-Sign Detail Recorded Client Recorded Date Recorded By Document 12/13/19 12:18 DV [id number] 03/03/20 12:28 DV 12/13/19 12:18 Wound Center Nurse 2 #6- R LAT DICKENS -Time 12:24 -Correct Patient Yes -Correct Side, Site, Position Yes -Correct Procedure No -Procedure Performed No -Wound/Ulcer Outcome Not Healed #5 LLE- Circumfrential -Time 12:19 -Correct Patient Yes -Correct Side, Site, Position Yes -Correct Procedure Yes -Procedure Performed Yes -Type of Procedure Debridement -Clinical Debridement Subcutaneous -Post Debridement Size (cm) - Length 11.5 -Post Debridement Size (cm) - Width 19.7 -Post Debridement Size (cm) - Depth 0.2 -Total Square Cm 226.55 -Wound/Ulcer Outcome Not Healed -Ulcer Cleansing Rinsed/ Irrigated with Saline -Foul Odor after Cleansing No -Bioengineered Tissue No -Bleeding Controlled with Pressure -Offloading No -Treatment Response Procedure Tolerated Well Pain Scale: 0-10 Numeric Is Patient Pain Free? Yes Laterality: Left - Calf Type of Debridement: Excisional debridement Anesthesia Used: 5% Lidocaine Gel Depth: Down to and including healthy tissue, in the subcutaneous layer Percentage of wound debrided: 100 Instrument Used: 5mm curette Tissue Removed: Bioburden and nonviable tissue Severity: Fat Layer Exposed Amount of bleeding with debridement: Mild Bleeding Controlled with: Compression and gauze Patient tolerated procedure well With respect to the ulceration on the right lateral calf, it is noted that the prior matrix allograft remains largely intact and in place. A 25-gauge hypodermic needle was used to penetrate the underlying wound surface, in an effort to cause some bleeding to saturate the allograft. This, in fact, was achieved. The allograft was then anchored once again in place using Adaptic Touch and Steri-Strips. Gauze dressing was then applied. The procedures were well-tolerated. 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 She has a large irregular ulceration on the left lower extremity which is related to her venous disease. The patient has demonstrated slow but progressive improvement. She presented recently with a new ulceration on the right lateral calf. The etiology of this new ulceration is uncertain. Swab cultures were obtained for both aerobic and anaerobic growth. The results revealed Staphylococcus aureus, very rare in amount. This was thought likely to be a contaminant or skin lisette. However, a second such culture, several weeks later, again revealed the growth of Staphylococcus aureus, rare in amount. Because of a second culture, positive for the same organism, and because of a relative failure to see progress related to this ulceration, we treated the patient with an oral antibiotic consistent with recent culture results. We are to continue leg elevation, avoidance of idle standing and sitting, compression, active lifestyle, weight control measures, etc. She is also to continue using mechanical pneumatic compression pumps 2-3 times daily in the left lower extremity. She is to continue to take a well-balanced, nutritious diet. Plan: We are to continue with conservative measures. These measures are to include leg elevation. She is to continue sleeping on a flat mattress at night. Her legs are to be elevated to heart level, or higher, even during daytime hours. Leg elevation has been recommended as much as possible. The patient is to avoid prolonged idle sitting. Activity has been encouraged. We are to continue the use of one-quarter strength Dakin's solution (0.125%) topically on the ulceration of the left calf. This will be alternated every other day with Silvadene topically. There appears to have been significant improvement in the appearance of the left calf ulceration since the initiation of Dakin's solution, alternating with Silvadene. XtraSorb will continue to be used for control of exudative drainage. We have placed a meshed PriMatrix allograft to the ulceration of the right anterolateral calf last week, which will be left undisturbed until the patient's return visit in 1 week. SurePress compression wrap will be used daily in the lower extremities. Mechanical pneumatic compression pumps are to be used twice daily for the left lower extremity. According to the patient's , the patient has become increasingly more difficult to manage in the home setting, due to her Alzheimer's dementia, which has resulted in some noncompliance. Patient is to continue the use of Vasculera orally on a daily basis. Nutritional optimization has been recommended. The patient will return for reevaluation in 1 week. It is anticipated that we will continue to use allograft and treatment for the right calf ulceration, the second of which was applied last week. Patient weight is 160 pounds. Patient is 5 feet 9 inches tall. BMI is 23.6. BMI is reasonable. The patient is not a smoker. Influenza vaccine was not administered.
[2019-12-20 11:56] VITALS: BP 116/90; PULSE 73; RESP 18; TEMP 36.7
--- NOTE | 2019-12-20 13:08 | PCM.WC.HP ---
(1) Ulcer of right calf Status: Chronic Current Visit: Yes Qualifiers: Non-pressure ulcer stage: with fat layer exposed Code(s): L97.219 - Non-pressure chronic ulcer of right calf with unspecified severity (2) Right leg swelling Status: Chronic Current Visit: Yes Code(s): M79.89 - Other specified soft tissue disorders (3) Leg edema, right Status: Chronic Current Visit: Yes Code(s): R60.0 - Localized edema (4) Chronic venous hypertension with inflammation involving left side Status: Chronic Current Visit: Yes Code(s): I87.322 - Chronic venous hypertension (idiopathic) with inflammation of left lower extremity (5) Left leg swelling Status: Chronic Current Visit: Yes Code(s): M79.89 - Other specified soft tissue disorders (6) Varicose veins with ulcer and inflammation Status: Chronic Current Visit: Yes Code(s): I83.209 - Varicose veins of unspecified lower extremity with both ulcer of unspecified site and inflammation; L97.909 - Non-pressure chronic ulcer of unspecified part of unspecified lower leg with unspecified severity (7) Leg edema, left Status: Chronic Current Visit: Yes Code(s): R60.0 - Localized edema (8) History of DVT (deep vein thrombosis) Status: Chronic Current Visit: No Code(s): Z86.718 - Personal history of other venous thrombosis and embolism Comment: left lower ext (9) Chronic venous insufficiency Status: Chronic Current Visit: Yes (10) Lymphedema of left leg Status: Chronic Current Visit: Yes Code(s): I89.0 - Lymphedema, not elsewhere classified (11) 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 Status: Chronic Current Visit: Yes Code(s): I87.039 - Postthrombotic syndrome with ulcer and inflammation of unspecified lower extremity (12) Calf ulcer Status: Chronic Current Visit: Yes Qualifiers: Laterality: left Non-pressure ulcer stage: with fat layer exposed Qualified Code(s): L97.222 - Non-pressure chronic ulcer of left calf with fat layer exposed Code(s): L97.209 - Non-pressure chronic ulcer of unspecified calf with unspecified severity (13) chronic left lower ext wound Status: Chronic Current Visit: Yes History of Present Illness Date of Service: 12/20/19 Chief Complaint: Chronic venous insufficiency, chronic venous hypertension with inflammation and ulceration, varicose veins with inflammation and ulceration, post phlebitic syndrome with inflammation and ulceration,leg swelling, leg edema, lymphedema, venous stasis ulceration-left lower extremity History of Wound: This is a 79-year-old white female with a long-standing history of chronic venous disease and swelling in her left lower extremity. This has been present for many years. She has a large ulceration located between her left knee and ankle, which is quite large and irregular in shape, and also highly exudative. 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 She has also previously undergone successful endovenous laser ablation of the left great and small saphenous veins. Healing of the patient's left lower extremity ulceration has been slow, but progressive. A number of healing measures have been implemented in the past, without success. We are currently using Silvadene topically and Xtrasorb for absorption of exudate. 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 (Chronic) Calf ulcer (Chronic) chronic left lower ext wound (Chronic) Surgical History: appendectomy, hysterectomy Allergies/Adverse Reactions: Allergies Latex, Natural Rubber Allergy (Verified 07/12/13 11:34) Rash Sulfa (Sulfonamide Antibiotics) Allergy (Verified 07/12/13 11:34) Hives trimethoprim Allergy (Verified 07/12/13 11:34) Hives Home Medications: Ambulatory Orders Medication Instructions Recorded Aspirin [Aspirin, Baby] 81 mg PO DAILY@0800 07/12/13 Calcium Carb/Vitamin D [Os-Mo 1 tablet PO DAILY@0800 07/12/13 500MG + D] Clopidogrel Bisulfate [Plavix] 75 mg PO DAILY 07/12/13 Doxepin HCl [Sinequan] 100 mg PO BID 07/12/13 Doxycycline Monohydrate [Monodox] 100 mg PO BID 07/12/13 Rawlings-3 Fatty Acids/Fish Oil [Fish 1 each PO DAILY 07/12/13 Oil 1,000 mg Softgel] Vitamin B12 500 mg PO DAILY 07/12/13 Vitamin C 500 mg PO DAILY 07/12/13 proMETHazine soln (6.25mg/5mL) 5 ml PO Q4H PRN PRN 07/12/13 [Phenergan Plain] Prednisone [PredniSONE] 200 mg PO DAILY 07/03/14 Valacyclovir HCl [Valacyclovir] 500 mg PO DAILY 07/03/14 Smoking Status: Never smoker Tobacco Use: Non-smoker Review of Systems Constitutional: Denies: Chills, Fever, Weight Change Eyes: Denies: Pain, Vision Change HEENT: Denies: Difficulty Hearing, Difficulty Swallowing, Sinus Congestion Cardiovascular: Denies: Chest Pain, Palpitations Respiratory: Denies: Cough, Shortness of Breath Gastrointestinal: Denies: Diarrhea, Nausea, Vomiting Genitourinary: Denies: Dysuria, Hematuria Endocrine: Denies: Heat/ Cold Intolerance, Polydipsia, Polyuria Hematologic/ Lymphatic: Denies: Easy Bruising, Easy Bleeding - Physical Exam Vital Signs Temp Pulse Resp BP 98.1 F 73 18 116/90 H 12/20/19 11:56 12/20/19 11:56 12/20/19 11:56 12/20/19 11:56 General: Alert, Oriented x3, Cooperative, No apparent distress, Well developed, Well nourished HEENT: Atraumatic, PERRLA, EOMI, Normocephalic Oral: Moist Mucosa Neck: No JVD Lungs: Normal air movement Abdomen: Non-Distended Extremities: No clubbing, No cyanosis, No Calf Tenderness, - - Swelling and edema persist in the lower extremities bilaterally. It is most notable in the left lower extremity, particularly on the dorsum of the left foot. The left calf ulcer persists, though there are increasing areas of epithelialization. The ulceration is diminishing in size. There is no sign of infection or cellulitis. Dimensions are documented elsewhere. The ulceration is clustered. The ulceration on the right lateral calf persists as well. Dimensions are documented elsewhere. There is no sign of infection or cellulitis. Bioburden and nonviable tissue are noted at the ulceration site in both lower extremities. Skin: No rashes Wound Measurements and Assessment WC - Nurse 1 - General Ulcer Measurement Start: 12/13/19 12:01 Freq: Status: Active Protocol: Activity Type Activity Date Activity User E-Sign Co-Sign Detail Recorded Client Recorded Date Recorded By Document 12/20/19 11:56 [id number] 12/20/19 12:05 12/20/19 11:56 Wound Center Nurse 1 [Ulcer Assessment] #6- R LAT DICKENS -Combined with other wound No -Current Size (cm) - Length 2.3 -Current Size (cm) - Width 2.5 -Current Size (cm) - Depth 0.3 -Total Square Cm 5.75 -Photo Taken No -Epithelialization None Present -Tunneling No -Undermining/Tunneling No -Circular Undermining No -Exudate Amt Medium -Exudate Type Yellow/Green -Wound Margin Distinct, Outline Attached -Granulation Amt Small (1-33%) -Granulation Quality Red -Slough/Fibrin Yes -Necrosis Amt None Present (0 %) -Necrotic Tissue Type Adherent Slough -Structure Exposed N/A -Texture (Nahomy-wound Skin Appearance) Scarring -Moisture (Nahomy-wound Skin Appearance No Abnormality, ) Assessed -Color (Nahomy-wound Skin Appearance) No Abnormality, Assessed -Temperature (Nahomy-wound Skin No Abnormality Appearance) (Pt Warm) -Tenderness on Palpation (Nahomy-wound No Skin Appearance) -Ulcer Cleansing Rinsed/ Irrigated with Saline -Foul Odor after Cleansing No -Anesthetic Used 4% Lidocaine Solution #5 LLE- Circumfrential -Combined with other wound No -Current Size (cm) - Length 11 -Current Size (cm) - Width 25.5 -Current Size (cm) - Depth 0.2 -Total Square Cm 280.5 -Photo Taken No -Epithelialization None Present -Tunneling No -Undermining/Tunneling No -Circular Undermining No -Exudate Amt Large -Exudate Type Serosanguineous -Wound Margin Distinct, Outline Attached -Granulation Amt Large (67-100%) -Granulation Quality Red -Slough/Fibrin Yes -Necrosis Amt None Present (0 %) -Necrotic Tissue Type Adherent Slough -Structure Exposed N/A -Texture (Nahomy-wound Skin Appearance) Scarring -Moisture (Nahomy-wound Skin Appearance No Abnormality, ) Assessed -Color (Nahomy-wound Skin Appearance) No Abnormality, Assessed -Temperature (Nahomy-wound Skin No Abnormality Appearance) (Pt Warm) -Tenderness on Palpation (Nahomy-wound No Skin Appearance) -Ulcer Cleansing Rinsed/ Irrigated with Saline -Foul Odor after Cleansing No -Anesthetic Used 4% Lidocaine Solution [Edema Assessment] -Lower Limb Edema Present No -Right Calf (cm) 32.1 -Right Ankle (cm) 22.8 -Left Calf (cm) 35 -Left Ankle (cm) 24.4 WC - Nurse 2 - General Ulcer CM Notes Start: 12/13/19 12:01 Freq: Status: Active Protocol: Activity Type Activity Date Activity User E-Sign Co-Sign Detail Recorded Client Recorded Date Recorded By Document 12/20/19 12:17 DV [id number] 12/20/19 12:35 DV 12/20/19 12:17 Wound Center Nurse 2 [Procedure/Treatment] #6- R LAT DICKENS -Time 12:17 -Correct Patient Yes -Correct Side, Site, Position Yes -Correct Procedure Yes -Procedure Performed Yes -Type of Procedure Debridement -Clinical Debridement Subcutaneous -Post Debridement Size (cm) - Length 1.7 -Post Debridement Size (cm) - Width 1.8 -Post Debridement Size (cm) - Depth 0.2 -Total Square Cm 3.06 -Wound/Ulcer Outcome Not Healed -Ulcer Cleansing Rinsed/ Irrigated with Saline -Foul Odor after Cleansing No -Bioengineered Tissue Yes -Type of bioengineered Tissue GRAFIX-Core -Expiration Date 08/03/24 -Product Lot Number [id number] -Percent Used 100 -Topical Lidocaine (%) 4 -Bleeding Controlled with Pressure -Offloading No -Treatment Response Procedure Tolerated Well #5 LLE- Circumfrential -Time 12:34 -Correct Patient Yes -Correct Side, Site, Position Yes -Correct Procedure Yes -Procedure Performed Yes -Type of Procedure Debridement -Clinical Debridement Subcutaneous -Post Debridement Size (cm) - Length 11.1 -Post Debridement Size (cm) - Width 19.5 -Post Debridement Size (cm) - Depth 0.2 -Total Square Cm 216.45 -Wound/Ulcer Outcome Not Healed -Ulcer Cleansing Rinsed/ Irrigated with Saline -Foul Odor after Cleansing No -Bioengineered Tissue No -Bleeding Controlled with Pressure -Offloading No -Treatment Response Procedure Tolerated Well [See Physician Procedure note for Specifics] Pain Scale: 0-10 Numeric [Pain] -Is Patient Pain Free? Yes Musculoskeletal: No Muscle Wasting Neurological: Cranial nerves II-XII grossly intact, Neuro grossly intact Psych/Mental Status: Normal Affect, Appropriate, Alert and oriented to time, place, person, mood and affect Debridement Note Post-Debridement Measurements/Treatment WC - Nurse 2 - General Ulcer CM Notes Start: 12/13/19 12:01 Freq: Status: Active Protocol: Activity Type Activity Date Activity User E-Sign Co-Sign Detail Recorded Client Recorded Date Recorded By Document 12/13/19 12:18 DV [id number] 12/13/19 12:28 DV Document 12/20/19 12:17 DV [id number] 12/20/19 12:35 DV 12/13/19 12/20/19 12:18 12:17 Wound Center Nurse 2 #6- R LAT DICKENS -Time 12:24 12:17 -Correct Patient Yes Yes -Correct Side, Site, Position Yes Yes -Correct Procedure No Yes -Procedure Performed No Yes -Type of Procedure Debridement -Clinical Debridement Subcutaneous -Post Debridement Size (cm) - Length 1.7 -Post Debridement Size (cm) - Width 1.8 -Post Debridement Size (cm) - Depth 0.2 -Total Square Cm 3.06 -Wound/Ulcer Outcome Not Healed Not Healed -Ulcer Cleansing Rinsed/ Irrigated with Saline -Foul Odor after Cleansing No -Bioengineered Tissue Yes -Type of bioengineered Tissue GRAFIX-Core -Expiration Date 08/03/24 -Product Lot Number [id number] -Percent Used 100 -Topical Lidocaine (%) 4 -Bleeding Controlled with Pressure -Offloading No -Treatment Response Procedure Tolerated Well #5 LLE- Circumfrential -Time 12:19 12:34 -Correct Patient Yes Yes -Correct Side, Site, Position Yes Yes -Correct Procedure Yes Yes -Procedure Performed Yes Yes -Type of Procedure Debridement Debridement -Clinical Debridement Subcutaneous Subcutaneous -Post Debridement Size (cm) - Length 11.5 11.1 -Post Debridement Size (cm) - Width 19.7 19.5 -Post Debridement Size (cm) - Depth 0.2 0.2 -Total Square Cm 226.55 216.45 -Wound/Ulcer Outcome Not Healed Not Healed -Ulcer Cleansing Rinsed/ Rinsed/ Irrigated with Irrigated with Saline Saline -Foul Odor after Cleansing No No -Bioengineered Tissue No No -Bleeding Controlled with Pressure Pressure -Offloading No No -Treatment Response Procedure Procedure Tolerated Well Tolerated Well Pain Scale: 0-10 Numeric Is Patient Pain Free? Yes Yes Laterality: Right Type of Debridement: Excisional debridement Anesthesia Used: 5% Lidocaine Gel Depth: Down to and including healthy tissue, in the subcutaneous layer Percentage of wound debrided: 100 Instrument Used: 5mm curette Tissue Removed: Bioburden and nonviable tissue Severity: Fat Layer Exposed Amount of bleeding with debridement: Mild Bleeding Controlled with: Compression and gauze Patient tolerated procedure well Following a routine excisional debridement, which was tolerated well by the patient, an [place] allograft was selected for placement. A 17 mm x 17 mm allograft was selected. Following removal from its sterile packaging, it was placed topically on the right lateral calf ulceration. Adaptic Touch was then placed, and secured using Steri-Strips. A dry sterile gauze dressing was applied. The patient tolerated the procedure well. - Additional Wound Laterality: Left - Calf Type of Debridement: Excisional debridement Anesthesia Used: 5% Lidocaine Gel Depth: Down to and including healthy tissue, in the subcutaneous layer Percentage of wound debrided: 100 Instrument Used: 5mm curette Tissue Removed: Bioburden and nonviable tissue Severity: Fat Layer Exposed Amount of bleeding with debridement: Mild Bleeding Controlled with: Compression and gauze Patient tolerated procedure: Patient tolerated procedure well Assessment/Plan Active Problems Ulcer of right calf (Chronic) Right leg swelling (Chronic) Leg edema, right (Chronic) Chronic venous hypertension with inflammation involving left side (Chronic) Left leg swelling (Chronic) Varicose veins with ulcer and inflammation (Chronic) Leg edema, left (Chronic) Chronic venous insufficiency (Chronic) Lymphedema of left leg (Chronic) 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 She has a large irregular ulceration on the left lower extremity which is related to her venous disease. The patient has demonstrated slow but progressive improvement. She presented recently with a new ulceration on the right lateral calf. The etiology of this new ulceration is uncertain. Swab cultures were obtained for both aerobic and anaerobic growth. The results revealed Staphylococcus aureus, very rare in amount. This was thought likely to be a contaminant or skin lisette. However, a second such culture, several weeks later, again revealed the growth of Staphylococcus aureus, rare in amount. Because of a second culture, positive for the same organism, and because of a relative failure to see progress related to this ulceration, we treated the patient with an oral antibiotic consistent with recent culture results. We are to continue leg elevation, avoidance of idle standing and sitting, compression, active lifestyle, weight control measures, etc. She is also to continue using mechanical pneumatic compression pumps 2-3 times daily in the left lower extremity. She is to continue to take a well-balanced, nutritious diet. Plan: We are to continue with conservative measures. These measures are to include leg elevation. She is to continue sleeping on a flat mattress at night. Her legs are to be elevated to heart level, or higher, even during daytime hours. Leg elevation has been recommended as much as possible. The patient is to avoid prolonged idle sitting. Activity has been encouraged. We are to continue the use of one-quarter strength Dakin's solution (0.125%) topically on the ulceration of the left calf. This will be alternated every other day with Silvadene topically. There appears to have been significant improvement in the appearance of the left calf ulceration since the initiation of Dakin's solution, alternating with Silvadene. XtraSorb will continue to be used for control of exudative drainage. We have placed an [place] allograft to the ulceration of the right anterolateral calf today, which will be left undisturbed until the patient's return visit in 1 week. SurePress compression wrap will be used daily in the lower extremities. Mechanical pneumatic compression pumps are to be used twice daily for the left lower extremity. According to the patient's , the patient has become increasingly more difficult to manage in the home setting, due to her Alzheimer's dementia, which has resulted in some noncompliance. Patient is to continue the use of Vasculera orally on a daily basis. Nutritional optimization has been recommended. The patient will return for reevaluation in 1 week. It is anticipated that we will continue to use allograft and treatment for the right calf ulceration, the fourth of which was applied this week. Patient weight is 160 pounds. Patient is 5 feet 9 inches tall. BMI is 23.6. BMI is reasonable. The patient is not a smoker. Influenza vaccine was not administered.
[2019-12-27 12:27] VITALS: RESP 16; TEMP 36.1
--- NOTE | 2019-12-27 13:06 | PCM.WC.HP ---
(1) Ulcer of right calf Status: Chronic Current Visit: Yes Qualifiers: Non-pressure ulcer stage: with fat layer exposed Code(s): L97.219 - Non-pressure chronic ulcer of right calf with unspecified severity (2) Right leg swelling Status: Chronic Current Visit: Yes Code(s): M79.89 - Other specified soft tissue disorders (3) Leg edema, right Status: Chronic Current Visit: Yes Code(s): R60.0 - Localized edema (4) Chronic venous hypertension with inflammation involving left side Status: Chronic Current Visit: Yes Code(s): I87.322 - Chronic venous hypertension (idiopathic) with inflammation of left lower extremity (5) Left leg swelling Status: Chronic Current Visit: Yes Code(s): M79.89 - Other specified soft tissue disorders (6) Varicose veins with ulcer and inflammation Status: Chronic Current Visit: Yes Code(s): I83.209 - Varicose veins of unspecified lower extremity with both ulcer of unspecified site and inflammation; L97.909 - Non-pressure chronic ulcer of unspecified part of unspecified lower leg with unspecified severity (7) Leg edema, left Status: Chronic Current Visit: Yes Code(s): R60.0 - Localized edema (8) History of DVT (deep vein thrombosis) Status: Chronic Current Visit: No Code(s): Z86.718 - Personal history of other venous thrombosis and embolism Comment: left lower ext (9) Chronic venous insufficiency Status: Chronic Current Visit: Yes (10) Lymphedema of left leg Status: Chronic Current Visit: Yes Code(s): I89.0 - Lymphedema, not elsewhere classified (11) 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 Status: Chronic Current Visit: Yes Code(s): I87.039 - Postthrombotic syndrome with ulcer and inflammation of unspecified lower extremity (12) Calf ulcer Status: Chronic Current Visit: Yes Qualifiers: Laterality: left Non-pressure ulcer stage: with fat layer exposed Qualified Code(s): L97.222 - Non-pressure chronic ulcer of left calf with fat layer exposed Code(s): L97.209 - Non-pressure chronic ulcer of unspecified calf with unspecified severity (13) chronic left lower ext wound Status: Chronic Current Visit: Yes History of Present Illness Date of Service: 12/27/19 Chief Complaint: Chronic venous insufficiency, chronic venous hypertension with inflammation and ulceration, varicose veins with inflammation and ulceration, post phlebitic syndrome with inflammation and ulceration,leg swelling, leg edema, lymphedema, venous stasis ulceration-left lower extremity History of Wound: This is a 79-year-old white female with a long-standing history of chronic venous disease and swelling in her left lower extremity. This has been present for many years. She has a large ulceration located between her left knee and ankle, which is quite large and irregular in shape, and also highly exudative. 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 She has also previously undergone successful endovenous laser ablation of the left great and small saphenous veins. Healing of the patient's left lower extremity ulceration has been slow, but progressive. A number of healing measures have been implemented in the past, without success. We are currently using Silvadene topically and Xtrasorb for absorption of exudate. 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 (Chronic) Calf ulcer (Chronic) chronic left lower ext wound (Chronic) Surgical History: appendectomy, hysterectomy Allergies/Adverse Reactions: Allergies Latex, Natural Rubber Allergy (Verified 07/12/13 11:34) Rash Sulfa (Sulfonamide Antibiotics) Allergy (Verified 07/12/13 11:34) Hives trimethoprim Allergy (Verified 07/12/13 11:34) Hives Home Medications: Ambulatory Orders Medication Instructions Recorded Aspirin [Aspirin, Baby] 81 mg PO DAILY@0800 07/12/13 Calcium Carb/Vitamin D [Os-Mo 1 tablet PO DAILY@0800 07/12/13 500MG + D] Clopidogrel Bisulfate [Plavix] 75 mg PO DAILY 07/12/13 Doxepin HCl [Sinequan] 100 mg PO BID 07/12/13 Doxycycline Monohydrate [Monodox] 100 mg PO BID 07/12/13 [place]-3 Fatty Acids/Fish Oil [Fish 1 each PO DAILY 07/12/13 Oil 1,000 mg Softgel] Vitamin B12 500 mg PO DAILY 07/12/13 Vitamin C 500 mg PO DAILY 07/12/13 proMETHazine soln (6.25mg/5mL) 5 ml PO Q4H PRN PRN 07/12/13 [Phenergan Plain] Prednisone [PredniSONE] 200 mg PO DAILY 07/03/14 Valacyclovir HCl [Valacyclovir] 500 mg PO DAILY 07/03/14 Smoking Status: Never smoker Tobacco Use: Non-smoker Review of Systems Constitutional: Denies: Chills, Fever, Weight Change Eyes: Denies: Pain, Vision Change HEENT: Denies: Difficulty Hearing, Difficulty Swallowing, Sinus Congestion Cardiovascular: Denies: Chest Pain, Palpitations Respiratory: Denies: Cough, Shortness of Breath Gastrointestinal: Denies: Diarrhea, Nausea, Vomiting Genitourinary: Denies: Dysuria, Hematuria Endocrine: Denies: Heat/ Cold Intolerance, Polydipsia, Polyuria Hematologic/ Lymphatic: Denies: Easy Bruising, Easy Bleeding - Physical Exam Vital Signs Temp Pulse Resp BP 96.9 F L 73 16 116/90 H 12/27/19 12:27 12/20/19 11:56 12/27/19 12:27 12/20/19 11:56 General: Alert, Oriented x3, Cooperative, No apparent distress, Well developed, Well nourished HEENT: Atraumatic, PERRLA, EOMI, Normocephalic Oral: Moist Mucosa Neck: No JVD Lungs: Normal air movement Abdomen: Non-Distended Extremities: No clubbing, No cyanosis, No Calf Tenderness, - - Bilateral swelling and edema is noted in the lower extremities. It is much more severe in the left lower extremity. It is most notable on the dorsum of the left foot. Ulceration of the left calf persists. There are increasing areas of epithelialization. There is no sign of infection or cellulitis. There is a moderate amount of bioburden. The ulceration on the right lateral calf persists as well, though appears to be improving. Margins are well beveled. There is a very small amount of bioburden. There is no sign of infection or cellulitis. Dimensions are documented elsewhere. There are some superficial excoriations associated with the right lateral calf ulceration. Wound Measurements and Assessment WC - Nurse 1 - General Ulcer Measurement Start: 12/13/19 12:01 Freq: Status: Active Protocol: Activity Type Activity Date Activity User E-Sign Co-Sign Detail Recorded Client Recorded Date Recorded By Document 12/27/19 12:27 [facility] [id number] 12/27/19 12:30 [facility] 12/27/19 12:27 Wound Center Nurse 1 [Ulcer Assessment] #6- R LAT DICKENS -Combined with other wound No -Current Size (cm) - Length 1.9 -Current Size (cm) - Width 2 -Current Size (cm) - Depth 0.2 -Total Square Cm 3.8 -Photo Taken No -Epithelialization None Present -Tunneling No -Undermining/Tunneling No -Circular Undermining No -Exudate Amt Small -Exudate Type Serosanguineous -Wound Margin Distinct, Outline Attached -Granulation Amt Large (67-100%) -Granulation Quality Red -Slough/Fibrin Yes -Necrosis Amt Small (1-33%) -Necrotic Tissue Type Adherent Slough -Texture (Nahomy-wound Skin Appearance) Assessed, Scarring -Moisture (Nahomy-wound Skin Appearance Assessed ) -Color (Nahomy-wound Skin Appearance) Assessed, Erythema -Temperature (Nahomy-wound Skin No Abnormality Appearance) (Pt Warm) -Tenderness on Palpation (Nahomy-wound No Skin Appearance) -Ulcer Cleansing soapy water -Foul Odor after Cleansing No -Anesthetic Used 4% Lidocaine Solution #5 LLE- Circumfrential -Combined with other wound No -Current Size (cm) - Length 10 -Current Size (cm) - Width 17.5 -Current Size (cm) - Depth 0.2 -Total Square Cm 175.0 -Photo Taken No -Epithelialization Small 1-33% -Tunneling No -Undermining/Tunneling No -Circular Undermining No -Exudate Amt Medium -Exudate Type Serosanguineous -Wound Margin Distinct, Outline Attached -Granulation Amt Medium (34-66%) -Granulation Quality [place] -Slough/Fibrin Yes -Necrosis Amt Medium (34-66%) -Necrotic Tissue Type Adherent Slough -Texture (Nahomy-wound Skin Appearance) Assessed, Scarring -Moisture (Nahomy-wound Skin Appearance Assessed,Dry/ ) Scaly -Color (Nahomy-wound Skin Appearance) Assessed -Temperature (Nahomy-wound Skin No Abnormality Appearance) (Pt Warm) -Tenderness on Palpation (Nahomy-wound No Skin Appearance) -Ulcer Cleansing soapy water -Foul Odor after Cleansing No -Anesthetic Used 4% Lidocaine Solution [Edema Assessment] -Lower Limb Edema Present Yes -Right Calf (cm) 31.7 -Right Ankle (cm) 22.7 -Left Calf (cm) 37.1 -Left Ankle (cm) 23.5 WC - Nurse 2 - General Ulcer CM Notes Start: 12/13/19 12:01 Freq: Status: Active Protocol: Activity Type Activity Date Activity User E-Sign Co-Sign Detail Recorded Client Recorded Date Recorded By Document 12/27/19 12:43 DV [id number] 12/27/19 12:55 DV 12/27/19 12:43 Wound Center Nurse 2 [Procedure/Treatment] #6- R LAT DICKENS -Time 12:44 -Correct Patient Yes -Correct Side, Site, Position Yes -Correct Procedure Yes -Procedure Performed Yes -Type of Procedure Debridement -Clinical Debridement Subcutaneous -Post Debridement Size (cm) - Length 2.2 -Post Debridement Size (cm) - Width 1.2 -Post Debridement Size (cm) - Depth 0.2 -Total Square Cm 2.64 -Wound/Ulcer Outcome Not Healed -Ulcer Cleansing Rinsed/ Irrigated with Saline -Foul Odor after Cleansing No -Type of bioengineered Tissue GRAFIX-Core -Expiration Date 09/26/24 -Product Lot Number [id number] -Percent Used 100 -Saline Lot Number HYDRO -Topical Lidocaine (%) 4 -Bleeding Controlled with Pressure -Offloading No -Treatment Response Procedure Tolerated Well #5 LLE- Circumfrential -Time 12:52 -Correct Patient Yes -Correct Side, Site, Position Yes -Procedure Performed Yes -Type of Procedure Debridement -Clinical Debridement Subcutaneous -Post Debridement Size (cm) - Length 10.0 -Post Debridement Size (cm) - Width 17.5 -Post Debridement Size (cm) - Depth 0.2 -Total Square Cm 175.00 -Wound/Ulcer Outcome Not Healed -Ulcer Cleansing Rinsed/ Irrigated with Saline -Foul Odor after Cleansing No -Bioengineered Tissue No -Bleeding Controlled with Pressure -Offloading No -Treatment Response Procedure Tolerated Well [See Physician Procedure note for Specifics] Pain Scale: 0-10 Numeric [Pain] -Is Patient Pain Free? Yes Neurological: Cranial nerves II-XII grossly intact, Neuro grossly intact Psych/Mental Status: Normal Affect, Appropriate, Alert and oriented to time, place, person, mood and affect Debridement Note Post-Debridement Measurements/Treatment WC - Nurse 2 - General Ulcer CM Notes Start: 12/13/19 12:01 Freq: Status: Active Protocol: Activity Type Activity Date Activity User E-Sign Co-Sign Detail Recorded Client Recorded Date Recorded By Document 12/13/19 12:18 DV [id number] 12/13/19 12:28 DV Document 12/20/19 12:17 DV [id number] 12/20/19 12:35 DV Document 12/27/19 12:43 DV [id number] 12/27/19 12:55 DV 12/13/19 12/20/19 12/27/19 12:18 12:17 12:43 Wound Center Nurse 2 #6- R LAT DICKENS -Time 12:24 12:17 12:44 -Correct Patient Yes Yes Yes -Correct Side, Site, Position Yes Yes Yes -Correct Procedure No Yes Yes -Procedure Performed No Yes Yes -Type of Procedure Debridement Debridement -Clinical Debridement Subcutaneous Subcutaneous -Post Debridement Size (cm) - Length 1.7 2.2 -Post Debridement Size (cm) - Width 1.8 1.2 -Post Debridement Size (cm) - Depth 0.2 0.2 -Total Square Cm 3.06 2.64 -Wound/Ulcer Outcome Not Healed Not Healed Not Healed -Ulcer Cleansing Rinsed/ Rinsed/ Irrigated with Irrigated with Saline Saline -Foul Odor after Cleansing No No -Bioengineered Tissue Yes -Type of bioengineered Tissue GRAFIX-Core GRAFIX-Core -Expiration Date 08/03/24 09/26/24 -Product Lot Number [id number] -Percent Used 100 100 -Saline Lot Number HYDRO -Topical Lidocaine (%) 4 4 -Bleeding Controlled with Pressure Pressure -Offloading No No -Treatment Response Procedure Procedure Tolerated Well Tolerated Well #5 LLE- Circumfrential -Time 12:19 12:34 12:52 -Correct Patient Yes Yes Yes -Correct Side, Site, Position Yes Yes Yes -Correct Procedure Yes Yes -Procedure Performed Yes Yes Yes -Type of Procedure Debridement Debridement Debridement -Clinical Debridement Subcutaneous Subcutaneous Subcutaneous -Post Debridement Size (cm) - Length 11.5 11.1 10.0 -Post Debridement Size (cm) - Width 19.7 19.5 17.5 -Post Debridement Size (cm) - Depth 0.2 0.2 0.2 -Total Square Cm 226.55 216.45 175.00 -Wound/Ulcer Outcome Not Healed Not Healed Not Healed -Ulcer Cleansing Rinsed/ Rinsed/ Rinsed/ Irrigated with Irrigated with Irrigated with Saline Saline Saline -Foul Odor after Cleansing No No No -Bioengineered Tissue No No No -Bleeding Controlled with Pressure Pressure Pressure -Offloading No No No -Treatment Response Procedure Procedure Procedure Tolerated Well Tolerated Well Tolerated Well Pain Scale: 0-10 Numeric Is Patient Pain Free? Yes Yes Yes Laterality: Right Type of Debridement: Excisional debridement - Lateral calf Anesthesia Used: 5% Lidocaine Gel Depth: Down to and including healthy tissue, in the subcutaneous layer Percentage of wound debrided: 100 Instrument Used: 5mm curette Tissue Removed: Bioburden Severity: Fat Layer Exposed Amount of bleeding with debridement: Mild Bleeding Controlled with: Compression and gauze Patient tolerated procedure well Following a routine excisional debridement, which was well-tolerated, a 2 cm x 2 cm AmnioExcel Plus allograft was selected for placement. Upon removal from its sterile packaging, it was placed topically on the surface of the ulceration. Adaptic Touch and hydrogel were applied, and the Adaptic was secured using Steri-Strips. The procedure was well-tolerated. - Additional Wound Laterality: Left - Calf Type of Debridement: Excisional debridement Anesthesia Used: 5% Lidocaine Gel Depth: Down to and including healthy tissue, in the subcutaneous layer Percentage of wound debrided: 100 Instrument Used: 5mm curette Tissue Removed: Bioburden and nonviable tissue Severity: Fat Layer Exposed Amount of bleeding with debridement: Mild Bleeding Controlled with: Compression and gauze Patient tolerated procedure: Patient tolerated procedure well Assessment/Plan Active Problems Ulcer of right calf (Chronic) Right leg swelling (Chronic) Leg edema, right (Chronic) Chronic venous hypertension with inflammation involving left side (Chronic) Left leg swelling (Chronic) Varicose veins with ulcer and inflammation (Chronic) Leg edema, left (Chronic) Chronic venous insufficiency (Chronic) Lymphedema of left leg (Chronic) 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 She has a large irregular ulceration on the left lower extremity which is related to her venous disease. The patient has demonstrated slow but progressive improvement. She presented recently with a new ulceration on the right lateral calf. The etiology of this new ulceration is uncertain. Swab cultures were obtained for both aerobic and anaerobic growth. The results revealed Staphylococcus aureus, very rare in amount. This was thought likely to be a contaminant or skin lisette. However, a second such culture, several weeks later, again revealed the growth of Staphylococcus aureus, rare in amount. Because of a second culture, positive for the same organism, and because of a relative failure to see progress related to this ulceration, we treated the patient with an oral antibiotic consistent with recent culture results. We are to continue leg elevation, avoidance of idle standing and sitting, compression, active lifestyle, weight control measures, etc. She is also to continue using mechanical pneumatic compression pumps 2-3 times daily in the left lower extremity. She is to continue to take a well-balanced, nutritious diet. Plan: We are to continue with conservative measures. These measures are to include leg elevation. She is to continue sleeping on a flat mattress at night. Her legs are to be elevated to heart level, or higher, even during daytime hours. Leg elevation has been recommended as much as possible. The patient is to avoid prolonged idle sitting. Activity has been encouraged. We are to continue the use of one-quarter strength Dakin's solution (0.125%) topically on the ulceration of the left calf. This will be alternated every other day with Silvadene topically. There appears to have been significant improvement in the appearance of the left calf ulceration since the initiation of Dakin's solution, alternating with Silvadene. XtraSorb will continue to be used for control of exudative drainage. We have placed an AmnioExcel Plus allograft to the ulceration of the right anterolateral calf today, which will be left undisturbed until the patient's return visit in 1 week. This represents the 5th such application. SurePress compression wrap will be used daily in the lower extremities. Mechanical pneumatic compression pumps are to be used twice daily for the left lower extremity. According to the patient's , the patient has become increasingly more difficult to manage in the home setting, due to her Alzheimer's dementia, which has resulted in some noncompliance. Patient is to continue the use of Vasculera orally on a daily basis. Nutritional optimization has been recommended. The patient will return for reevaluation in 1 week. It is anticipated that we will continue to use allograft and treatment for the right calf ulceration, the fourth of which was applied this week. Patient weight is 160 pounds. Patient is 5 feet 9 inches tall. BMI is 23.6. BMI is reasonable. The patient is not a smoker. Influenza vaccine was not administered.
[2020-01-03 11:56] VITALS: RESP 18; TEMP 36.7
--- NOTE | 2020-01-03 12:56 | PCM.WC.HP ---
(1) Ulcer of right calf Status: Chronic Current Visit: Yes Qualifiers: Non-pressure ulcer stage: with fat layer exposed Code(s): L97.219 - Non-pressure chronic ulcer of right calf with unspecified severity (2) Right leg swelling Status: Chronic Current Visit: Yes Code(s): M79.89 - Other specified soft tissue disorders (3) Leg edema, right Status: Chronic Current Visit: Yes Code(s): R60.0 - Localized edema (4) Chronic venous hypertension with inflammation involving left side Status: Chronic Current Visit: Yes Code(s): I87.322 - Chronic venous hypertension (idiopathic) with inflammation of left lower extremity (5) Left leg swelling Status: Chronic Current Visit: Yes Code(s): M79.89 - Other specified soft tissue disorders (6) Varicose veins with ulcer and inflammation Status: Chronic Current Visit: Yes Code(s): I83.209 - Varicose veins of unspecified lower extremity with both ulcer of unspecified site and inflammation; L97.909 - Non-pressure chronic ulcer of unspecified part of unspecified lower leg with unspecified severity (7) Leg edema, left Status: Chronic Current Visit: Yes Code(s): R60.0 - Localized edema (8) History of DVT (deep vein thrombosis) Status: Chronic Current Visit: No Code(s): Z86.718 - Personal history of other venous thrombosis and embolism Comment: left lower ext (9) Chronic venous insufficiency Status: Chronic Current Visit: Yes (10) Lymphedema of left leg Status: Chronic Current Visit: Yes Code(s): I89.0 - Lymphedema, not elsewhere classified (11) 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 Status: Chronic Current Visit: Yes Code(s): I87.039 - Postthrombotic syndrome with ulcer and inflammation of unspecified lower extremity (12) Calf ulcer Status: Chronic Current Visit: Yes Qualifiers: Laterality: left Non-pressure ulcer stage: with fat layer exposed Qualified Code(s): L97.222 - Non-pressure chronic ulcer of left calf with fat layer exposed Code(s): L97.209 - Non-pressure chronic ulcer of unspecified calf with unspecified severity (13) chronic left lower ext wound Status: Chronic Current Visit: Yes History of Present Illness Date of Service: 01/03/20 Chief Complaint: Chronic venous insufficiency, chronic venous hypertension with inflammation and ulceration, varicose veins with inflammation and ulceration, post phlebitic syndrome with inflammation and ulceration,leg swelling, leg edema, lymphedema, venous stasis ulceration-left lower extremity History of Wound: This is a 79-year-old white female with a long-standing history of chronic venous disease and swelling in her left lower extremity. This has been present for many years. She has a large ulceration located between her left knee and ankle, which is quite large and irregular in shape, and also highly exudative. 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 She has also previously undergone successful endovenous laser ablation of the left great and small saphenous veins. Healing of the patient's left lower extremity ulceration has been slow, but progressive. A number of healing measures have been implemented in the past, without success. We are currently using Silvadene topically and Xtrasorb for absorption of exudate. 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 (Chronic) Calf ulcer (Chronic) chronic left lower ext wound (Chronic) Surgical History: appendectomy, hysterectomy Allergies/Adverse Reactions: Allergies Latex, Natural Rubber Allergy (Verified 07/12/13 11:34) Rash Sulfa (Sulfonamide Antibiotics) Allergy (Verified 07/12/13 11:34) Hives trimethoprim Allergy (Verified 07/12/13 11:34) Hives Home Medications: Ambulatory Orders Medication Instructions Recorded Aspirin [Aspirin, Baby] 81 mg PO DAILY@0800 07/12/13 Calcium Carb/Vitamin D [Os-Mo 1 tablet PO DAILY@0800 07/12/13 500MG + D] Clopidogrel Bisulfate [Plavix] 75 mg PO DAILY 07/12/13 Doxepin HCl [Sinequan] 100 mg PO BID 07/12/13 Doxycycline Monohydrate [Monodox] 100 mg PO BID 07/12/13 [place]-3 Fatty Acids/Fish Oil [Fish 1 each PO DAILY 07/12/13 Oil 1,000 mg Softgel] Vitamin B12 500 mg PO DAILY 07/12/13 Vitamin C 500 mg PO DAILY 07/12/13 proMETHazine soln (6.25mg/5mL) 5 ml PO Q4H PRN PRN 07/12/13 [Phenergan Plain] Prednisone [PredniSONE] 200 mg PO DAILY 07/03/14 Valacyclovir HCl [Valacyclovir] 500 mg PO DAILY 07/03/14 Smoking Status: Never smoker Tobacco Use: Non-smoker Review of Systems Constitutional: Denies: Chills, Fever, Weight Change Eyes: Denies: Pain, Vision Change HEENT: Denies: Difficulty Hearing, Difficulty Swallowing, Sinus Congestion Cardiovascular: Denies: Chest Pain, Palpitations Respiratory: Denies: Cough, Shortness of Breath Gastrointestinal: Denies: Diarrhea, Nausea, Vomiting Genitourinary: Denies: Dysuria, Hematuria Endocrine: Denies: Heat/ Cold Intolerance, Polydipsia, Polyuria Hematologic/ Lymphatic: Denies: Easy Bruising, Easy Bleeding - Physical Exam Vital Signs Temp Pulse Resp BP 98.0 F 73 18 116/90 H 01/03/20 11:56 12/20/19 11:56 01/03/20 11:56 12/20/19 11:56 General: Alert, Oriented x3, Cooperative, No apparent distress, Well developed, Well nourished HEENT: Atraumatic, PERRLA, EOMI, Normocephalic Oral: Moist Mucosa Neck: No JVD Lungs: Normal air movement Abdomen: Non-Distended Extremities: No clubbing, No cyanosis, No Calf Tenderness, - - Appears swelling and edema persist in the left lower extremity. It is most notable on the dorsum of the left foot. This has been chronic in nature. The ulceration of the left calf continues to diminish in size. It is clustered. There are multiple areas of ulceration, though these areas continue to decrease in size on a weekly basis. There has been significant improvement. There is a moderate amount of bioburden. There is no sign of infection or cellulitis. The ulceration on the right lateral calf persists as well. It is also improving. It appears to be smaller in size. Dimensions are documented elsewhere. The base of the ulceration is generally pink and healthy in appearance, with active granulation, and a small amount of bioburden. There is no sign of infection or cellulitis. Dimensions are documented elsewhere. Skin: No rashes Wound Measurements and Assessment WC - Nurse 1 - General Ulcer Measurement Start: 12/13/19 12:01 Freq: Status: Active Protocol: Activity Type Activity Date Activity User E-Sign Co-Sign Detail Recorded Client Recorded Date Recorded By Document 01/03/20 11:56 [id number] 01/03/20 12:09 01/03/20 11:56 Wound Center Nurse 1 [Ulcer Assessment] #6- R LAT DICKENS -Combined with other wound No -Current Size (cm) - Length 1.6 -Current Size (cm) - Width 3.7 -Current Size (cm) - Depth 0.2 -Total Square Cm 5.92 -Photo Taken Yes -Epithelialization Small 1-33% -Tunneling No -Undermining/Tunneling No -Circular Undermining No -Exudate Amt Small -Exudate Type Serosanguineous -Wound Margin Flat & Intact -Granulation Amt Large (67-100%) -Granulation Quality Red -Slough/Fibrin Yes -Necrosis Amt Small (1-33%) -Necrotic Tissue Type Adherent Slough -Structure Exposed N/A -Texture (Nahomy-wound Skin Appearance) Assessed, Localized Edema ,Scarring -Moisture (Nahomy-wound Skin Appearance Assessed,Dry/ ) Scaly -Color (Nahomy-wound Skin Appearance) Assessed -Temperature (Nahomy-wound Skin No Abnormality Appearance) (Pt Warm) -Tenderness on Palpation (Nahomy-wound No Skin Appearance) -Ulcer Cleansing Wound Cleanser -Foul Odor after Cleansing No -Anesthetic Used 4% Lidocaine Solution #5 LLE- Circumfrential -Combined with other wound No -Current Size (cm) - Length 9.5 -Current Size (cm) - Width 16.8 -Current Size (cm) - Depth 0.2 -Total Square Cm 159.60 -Photo Taken Yes -Epithelialization Small 1-33% -Tunneling No -Undermining/Tunneling No -Circular Undermining No -Exudate Amt Medium -Exudate Type Serosanguineous -Wound Margin Flat & Intact -Granulation Amt Medium (34-66%) -Granulation Quality Red -Slough/Fibrin Yes -Necrosis Amt Medium (34-66%) -Necrotic Tissue Type Adherent Slough -Structure Exposed N/A -Texture (Nahomy-wound Skin Appearance) Assessed, Localized Edema -Moisture (Nahomy-wound Skin Appearance Assessed,Dry/ ) Scaly -Color (Nahomy-wound Skin Appearance) Assessed, Ecchymosis, Hemosiderin Staining -Temperature (Nahomy-wound Skin No Abnormality Appearance) (Pt Warm) -Tenderness on Palpation (Nahomy-wound No Skin Appearance) -Ulcer Cleansing Wound Cleanser -Foul Odor after Cleansing No -Anesthetic Used 4% Lidocaine Solution [Edema Assessment] -Lower Limb Edema Present Yes -Right Calf (cm) 31.5 -Right Ankle (cm) 22.6 -Left Calf (cm) 36.3 -Left Ankle (cm) 25.5 WC - Nurse 2 - General Ulcer CM Notes Start: 12/13/19 12:01 Freq: Status: Active Protocol: Activity Type Activity Date Activity User E-Sign Co-Sign Detail Recorded Client Recorded Date Recorded By Document 01/03/20 12:29 DV [id number] 01/03/20 12:43 DV 01/03/20 12:29 Wound Center Nurse 2 [Procedure/Treatment] #6- R LAT DICKENS -Time 12:30 -Correct Patient Yes -Correct Side, Site, Position Yes -Correct Procedure Yes -Procedure Performed Yes -Type of Procedure Debridement -Clinical Debridement Subcutaneous -Post Debridement Size (cm) - Length 1.7 -Post Debridement Size (cm) - Width 4.0 -Post Debridement Size (cm) - Depth 0.2 -Total Square Cm 6.80 -Wound/Ulcer Outcome Not Healed -Ulcer Cleansing Rinsed/ Irrigated with Saline -Foul Odor after Cleansing No -Bioengineered Tissue Yes -Type of bioengineered Tissue GRAFIX-Core -Expiration Date 09/26/24 -Product Lot Number [id number] -Percent Used 100 -Saline Lot Number HYDRO -Topical Lidocaine (%) 4 -Bleeding Controlled with Pressure -Offloading No -Treatment Response Procedure Tolerated Well #5 LLE- Circumfrential -Time 12:34 -Correct Patient Yes -Correct Side, Site, Position Yes -Correct Procedure Yes -Procedure Performed Yes -Type of Procedure Debridement -Clinical Debridement Subcutaneous -Post Debridement Size (cm) - Length 9.5 -Post Debridement Size (cm) - Width 16.8 -Post Debridement Size (cm) - Depth 0.2 -Total Square Cm 159.60 -Wound/Ulcer Outcome Not Healed -Ulcer Cleansing Rinsed/ Irrigated with Saline -Foul Odor after Cleansing No -Bioengineered Tissue No -Bleeding Controlled with Pressure -Offloading No -Treatment Response Procedure Tolerated Well [See Physician Procedure note for Specifics] Pain Scale: 0-10 Numeric [Pain] -Is Patient Pain Free? Yes Musculoskeletal: No Muscle Wasting Neurological: Cranial nerves II-XII grossly intact, Neuro grossly intact Psych/Mental Status: Normal Affect, Appropriate, Alert and oriented to time, place, person, mood and affect Debridement Note Post-Debridement Measurements/Treatment WC - Nurse 2 - General Ulcer CM Notes Start: 12/13/19 12:01 Freq: Status: Active Protocol: Activity Type Activity Date Activity User E-Sign Co-Sign Detail Recorded Client Recorded Date Recorded By Document 12/13/19 12:18 DV [id number] 12/13/19 12:28 DV Document 12/20/19 12:17 DV [id number] 12/20/19 12:35 DV Document 12/27/19 12:43 DV [id number] 12/27/19 12:55 DV Document 01/03/20 12:29 DV [id number] 01/03/20 12:43 DV 12/13/19 12/20/19 12/27/19 12:18 12:17 12:43 Wound Center Nurse 2 #6- R LAT DICKENS -Time 12:24 12:17 12:44 -Correct Patient Yes Yes Yes -Correct Side, Site, Position Yes Yes Yes -Correct Procedure No Yes Yes -Procedure Performed No Yes Yes -Type of Procedure Debridement Debridement -Clinical Debridement Subcutaneous Subcutaneous -Post Debridement Size (cm) - Length 1.7 2.2 -Post Debridement Size (cm) - Width 1.8 1.2 -Post Debridement Size (cm) - Depth 0.2 0.2 -Total Square Cm 3.06 2.64 -Wound/Ulcer Outcome Not Healed Not Healed Not Healed -Ulcer Cleansing Rinsed/ Rinsed/ Irrigated with Irrigated with Saline Saline -Foul Odor after Cleansing No No -Bioengineered Tissue Yes -Type of bioengineered Tissue GRAFIX-Core GRAFIX-Core -Expiration Date 08/03/24 09/26/24 -Product Lot Number [id number] -Percent Used 100 100 -Saline Lot Number HYDRO -Topical Lidocaine (%) 4 4 -Bleeding Controlled with Pressure Pressure -Offloading No No -Treatment Response Procedure Procedure Tolerated Well Tolerated Well #5 LLE- Circumfrential -Time 12:19 12:34 12:52 -Correct Patient Yes Yes Yes -Correct Side, Site, Position Yes Yes Yes -Correct Procedure Yes Yes -Procedure Performed Yes Yes Yes -Type of Procedure Debridement Debridement Debridement -Clinical Debridement Subcutaneous Subcutaneous Subcutaneous -Post Debridement Size (cm) - Length 11.5 11.1 10.0 -Post Debridement Size (cm) - Width 19.7 19.5 17.5 -Post Debridement Size (cm) - Depth 0.2 0.2 0.2 -Total Square Cm 226.55 216.45 175.00 -Wound/Ulcer Outcome Not Healed Not Healed Not Healed -Ulcer Cleansing Rinsed/ Rinsed/ Rinsed/ Irrigated with Irrigated with Irrigated with Saline Saline Saline -Foul Odor after Cleansing No No No -Bioengineered Tissue No No No -Bleeding Controlled with Pressure Pressure Pressure -Offloading No No No -Treatment Response Procedure Procedure Procedure Tolerated Well Tolerated Well Tolerated Well Pain Scale: 0-10 Numeric Is Patient Pain Free? Yes Yes Yes 01/03/20 12:29 Wound Center Nurse 2 #6- R LAT DICKENS -Time 12:30 -Correct Patient Yes -Correct Side, Site, Position Yes -Correct Procedure Yes -Procedure Performed Yes -Type of Procedure Debridement -Clinical Debridement Subcutaneous -Post Debridement Size (cm) - Length 1.7 -Post Debridement Size (cm) - Width 4.0 -Post Debridement Size (cm) - Depth 0.2 -Total Square Cm 6.80 -Wound/Ulcer Outcome Not Healed -Ulcer Cleansing Rinsed/ Irrigated with Saline -Foul Odor after Cleansing No -Bioengineered Tissue Yes -Type of bioengineered Tissue GRAFIX-Core -Expiration Date 09/26/24 -Product Lot Number [id number] -Percent Used 100 -Saline Lot Number HYDRO -Topical Lidocaine (%) 4 -Bleeding Controlled with Pressure -Offloading No -Treatment Response Procedure Tolerated Well #5 LLE- Circumfrential -Time 12:34 -Correct Patient Yes -Correct Side, Site, Position Yes -Correct Procedure Yes -Procedure Performed Yes -Type of Procedure Debridement -Clinical Debridement Subcutaneous -Post Debridement Size (cm) - Length 9.5 -Post Debridement Size (cm) - Width 16.8 -Post Debridement Size (cm) - Depth 0.2 -Total Square Cm 159.60 -Wound/Ulcer Outcome Not Healed -Ulcer Cleansing Rinsed/ Irrigated with Saline -Foul Odor after Cleansing No -Bioengineered Tissue No -Bleeding Controlled with Pressure -Offloading No -Treatment Response Procedure Tolerated Well Pain Scale: 0-10 Numeric Is Patient Pain Free? Yes Laterality: Right - Lateral calf Type of Debridement: Excisional debridement Anesthesia Used: 5% Lidocaine Gel Depth: Down to and including healthy tissue, in the subcutaneous layer Percentage of wound debrided: 100 Instrument Used: 5mm curette Tissue Removed: Bioburden Severity: Fat Layer Exposed Amount of bleeding with debridement: Mild Bleeding Controlled with: Compression and gauze Patient tolerated procedure well Following a routine excisional debridement, an AmnioExcel Plus allograft was placed. A 2 cm x 2 cm allograft was selected. Upon removal from its sterile packaging, the allograft was placed topically. Adaptic Touch was then applied, and secured using Steri-Strips. The procedure was well-tolerated. - Additional Wound Laterality: Left - Calf, multiple clustered ulcerations Type of Debridement: Excisional debridement Anesthesia Used: 5% Lidocaine Gel Depth: Down to and including healthy tissue, in the subcutaneous layer Percentage of wound debrided: 100 Instrument Used: 5mm curette Tissue Removed: Bioburden and nonviable tissue Severity: Fat Layer Exposed Amount of bleeding with debridement: Mild Bleeding Controlled with: Compression and gauze Patient tolerated procedure: Patient tolerated procedure well Assessment/Plan Active Problems Ulcer of right calf (Chronic) Right leg swelling (Chronic) Leg edema, right (Chronic) Chronic venous hypertension with inflammation involving left side (Chronic) Left leg swelling (Chronic) Varicose veins with ulcer and inflammation (Chronic) Leg edema, left (Chronic) Chronic venous insufficiency (Chronic) Lymphedema of left leg (Chronic) 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 She has a large irregular ulceration on the left lower extremity which is related to her venous disease. The patient has demonstrated slow but progressive improvement. She presented recently with a new ulceration on the right lateral calf. The etiology of this new ulceration is uncertain. We are to continue leg elevation, avoidance of idle standing and sitting, compression, active lifestyle, weight control measures, etc. She is also to continue using mechanical pneumatic compression pumps 2-3 times daily in the left lower extremity. She is to continue to take a well-balanced, nutritious diet. Plan: We are to continue with conservative measures. These measures are to include leg elevation. She is to continue sleeping on a flat mattress at night. Her legs are to be elevated to heart level, or higher, even during daytime hours. Leg elevation has been recommended as much as possible. The patient is to avoid prolonged idle sitting. Activity has been encouraged. We are to continue the use of one-quarter strength Dakin's solution (0.125%) topically on the ulceration of the left calf. This will be alternated every other day with Silvadene topically. There appears to have been significant improvement in the left calf ulceration since the initiation of Dakin's solution, alternating with Silvadene. XtraSorb will continue to be used for control of exudative drainage. We have placed an AmnioExcel Plus allograft to the ulceration of the right anterolateral calf today, which will be left undisturbed until the patient's return visit in 1 week. This represents the 6th such application. SurePress compression wrap will be used daily in the lower extremities. Mechanical pneumatic compression pumps are to be used twice daily for the left lower extremity. According to the patient's , the patient has become increasingly more difficult to manage in the home setting, due to her Alzheimer's dementia, which has resulted in some noncompliance. Patient is to continue the use of Vasculera orally on a daily basis. Nutritional optimization has been recommended. The patient will return for reevaluation in 1 week. It is anticipated that we will continue to use allograft and treatment for the right calf ulceration, the 6th of which was applied this week. Patient weight is 160 pounds. Patient is 5 feet 9 inches tall. BMI is 23.6. BMI is reasonable. The patient is not a smoker. Influenza vaccine was not administered.
[2020-01-10 11:54] VITALS: BP 146/71; PULSE 74; RESP 18; TEMP 36.6
--- NOTE | 2020-01-10 12:32 | HP.PCM_ITS ---
(1) Ulcer of right calf Status: Chronic Current Visit: Yes Qualifiers: Non-pressure ulcer stage: with fat layer exposed Code(s): L97.219 - Non-pressure chronic ulcer of right calf with unspecified severity (2) Right leg swelling Status: Chronic Current Visit: Yes Code(s): M79.89 - Other specified soft tissue disorders (3) Leg edema, right Status: Chronic Current Visit: Yes Code(s): R60.0 - Localized edema (4) Chronic venous hypertension with inflammation involving left side Status: Chronic Current Visit: Yes Code(s): I87.322 - Chronic venous hypertension (idiopathic) with inflammation of left lower extremity (5) Left leg swelling Status: Chronic Current Visit: Yes Code(s): M79.89 - Other specified soft tissue disorders (6) Varicose veins with ulcer and inflammation Status: Chronic Current Visit: Yes Code(s): I83.209 - Varicose veins of unspecified lower extremity with both ulcer of unspecified site and inflammation; L97.909 - Non-pressure chronic ulcer of unspecified part of unspecified lower leg with unspecified severity (7) Leg edema, left Status: Chronic Current Visit: Yes Code(s): R60.0 - Localized edema (8) History of DVT (deep vein thrombosis) Status: Chronic Current Visit: No Code(s): Z86.718 - Personal history of other venous thrombosis and embolism Comment: left lower ext (9) Chronic venous insufficiency Status: Chronic Current Visit: Yes (10) Lymphedema of left leg Status: Chronic Current Visit: Yes Code(s): I89.0 - Lymphedema, not elsewhere classified (11) 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 Status: Chronic Current Visit: Yes Code(s): I87.039 - Postthrombotic syndrome with ulcer and inflammation of unspecified lower extremity (12) Calf ulcer Status: Chronic Current Visit: Yes Qualifiers: Laterality: left Non-pressure ulcer stage: with fat layer exposed Qualified Code(s): L97.222 - Non-pressure chronic ulcer of left calf with fat layer exposed Code(s): L97.209 - Non-pressure chronic ulcer of unspecified calf with unspecified severity (13) chronic left lower ext wound Status: Chronic Current Visit: Yes History of Present Illness Date of Service: 01/10/20 Chief Complaint: Chronic venous insufficiency, chronic venous hypertension with inflammation and ulceration, varicose veins with inflammation and ulceration, post phlebitic syndrome with inflammation and ulceration,leg swelling, leg edema, lymphedema, venous stasis ulceration-left lower extremity History of Wound: This is a 79-year-old white female with a long-standing history of chronic venous disease and swelling in her left lower extremity. This has been present for many years. She has a large ulceration located between her left knee and ankle, which is quite large and irregular in shape, and also highly exudative. 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 She has also previously undergone successful endovenous laser ablation of the left great and small saphenous veins. Healing of the patient's left lower extremity ulceration has been slow, but progressive. A number of healing measures have been implemented in the past, without success. We are currently using Silvadene topically and Xtrasorb for absorption of exudate. 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 (Chronic) Calf ulcer (Chronic) chronic left lower ext wound (Chronic) Surgical History: appendectomy, hysterectomy Allergies/Adverse Reactions: Allergies Latex, Natural Rubber Allergy (Verified 07/12/13 11:34) Rash Sulfa (Sulfonamide Antibiotics) Allergy (Verified 07/12/13 11:34) Hives trimethoprim Allergy (Verified 07/12/13 11:34) Hives Home Medications: Ambulatory Orders Medication Instructions Recorded Aspirin [Aspirin, Baby] 81 mg PO DAILY@0800 07/12/13 Calcium Carb/Vitamin D [Os-Mo 1 tablet PO DAILY@0800 07/12/13 500MG + D] Clopidogrel Bisulfate [Plavix] 75 mg PO DAILY 07/12/13 Doxepin HCl [Sinequan] 100 mg PO BID 07/12/13 Doxycycline Monohydrate [Monodox] 100 mg PO BID 07/12/13 [place]-3 Fatty Acids/Fish Oil [Fish 1 each PO DAILY 07/12/13 Oil 1,000 mg Softgel] Vitamin B12 500 mg PO DAILY 07/12/13 Vitamin C 500 mg PO DAILY 07/12/13 proMETHazine soln (6.25mg/5mL) 5 ml PO Q4H PRN PRN 07/12/13 [Phenergan Plain] Prednisone [PredniSONE] 200 mg PO DAILY 07/03/14 Valacyclovir HCl [Valacyclovir] 500 mg PO DAILY 07/03/14 Smoking Status: Never smoker Tobacco Use: Non-smoker Review of Systems Constitutional: Denies: Chills, Fever, Weight Change Eyes: Denies: Pain, Vision Change HEENT: Denies: Difficulty Hearing, Difficulty Swallowing, Sinus Congestion Cardiovascular: Denies: Chest Pain, Palpitations Respiratory: Denies: Cough, Shortness of Breath Gastrointestinal: Denies: Diarrhea, Nausea, Vomiting Genitourinary: Denies: Dysuria, Hematuria Endocrine: Denies: Heat/ Cold Intolerance, Polydipsia, Polyuria Hematologic/ Lymphatic: Denies: Easy Bruising, Easy Bleeding - Physical Exam Vital Signs Temp Pulse Resp BP 97.9 F 74 18 146/71 H 01/10/20 11:54 01/10/20 11:54 01/10/20 11:54 01/10/20 11:54 General: Alert, Oriented x3, Cooperative, No apparent distress, Well developed, Well nourished HEENT: Atraumatic, PERRLA, EOMI, Normocephalic Oral: Moist Mucosa Neck: No JVD Lungs: Normal air movement Abdomen: Non-Distended Extremities: No clubbing, No cyanosis, No Calf Tenderness, - - Swelling and edema persist in the patient's left lower extremity. This is chronic in nature. It is most notable on the dorsum of the left foot. The clustered ulceration of the left calf continues to improve. There are increasing areas of epithelialization. The open areas are generally pink and healthy in appearance, with a moderate amount of bioburden. There is no sign of infection or cellulitis. The ulceration on the right lateral calf persists as well. It does appear to be slightly smaller. Dimensions are documented elsewhere. There is no sign of infection or cellulitis. There are some superficial excoriation and irritation surrounding the ulceration. There is a small amount of bioburden. Wound Measurements and Assessment WC - Nurse 1 - General Ulcer Measurement Start: 12/13/19 12:01 Freq: Status: Active Protocol: Activity Type Activity Date Activity User E-Sign Co-Sign Detail Recorded Client Recorded Date Recorded By Document 01/10/20 11:54 BS [id number] 01/10/20 12:09 BS 01/10/20 11:54 Wound Center Nurse 1 [Ulcer Assessment] #6- R LAT DICKENS -Combined with other wound No -Current Size (cm) - Length 1.3 -Current Size (cm) - Width 1.5 -Current Size (cm) - Depth 0.2 -Total Square Cm 1.95 -Date of Last Picture (Recall this 01/10/20 field) -Photo Taken No -Exudate Amt Small -Exudate Type Serosanguineous -Wound Margin Distinct, Outline Attached -Granulation Amt Medium (34-66%) -Granulation Quality Red -Necrosis Amt Medium (34-66%) -Necrotic Tissue Type Adherent Slough -Structure Exposed N/A -Texture (Nahomy-wound Skin Appearance) Excoriation, Scarring -Moisture (Nahomy-wound Skin Appearance Dry/Scaly ) -Color (Nahomy-wound Skin Appearance) Erythema,Rubor -Temperature (Nahomy-wound Skin No Abnormality Appearance) (Pt Warm) -Tenderness on Palpation (Nahomy-wound No Skin Appearance) -Ulcer Cleansing Wound Cleanser -Foul Odor after Cleansing No -Anesthetic Used 4% Lidocaine Solution #5 LLE- Circumfrential -Combined with other wound No -Current Size (cm) - Length 12.5 -Current Size (cm) - Width 23 -Current Size (cm) - Depth 0.1 -Total Square Cm 287.5 -Date of Last Picture (Recall this 01/10/20 field) -Photo Taken Yes -Exudate Amt Medium -Exudate Type Serosanguineous -Wound Margin Distinct, Outline Attached -Granulation Amt Large (67-100%) -Granulation Quality Red -Necrosis Amt Small (1-33%) -Necrotic Tissue Type Adherent Slough -Structure Exposed N/A -Texture (Nahomy-wound Skin Appearance) Scarring -Moisture (Nahomy-wound Skin Appearance Maceration ) -Color (Nahomy-wound Skin Appearance) Rubor -Temperature (Nahomy-wound Skin No Abnormality Appearance) (Pt Warm) -Tenderness on Palpation (Nahomy-wound No Skin Appearance) -Ulcer Cleansing Wound Cleanser -Foul Odor after Cleansing No -Anesthetic Used 4% Lidocaine Solution [Edema Assessment] -Lower Limb Edema Present Yes -Point of measurement (cm from the 31.4 medial instep) -Point of Measurement (cm from the 22.5 medial instep) -Point of measurement (cm from the 33.5 medial instep) -Point of Measurement (cm from the 25 medial instep) WC - Nurse 2 - General Ulcer CM Notes Start: 12/13/19 12:01 Freq: Status: Active Protocol: Activity Type Activity Date Activity User E-Sign Co-Sign Detail Recorded Client Recorded Date Recorded By Document 01/10/20 12:17 DV [id number] 01/10/20 12:28 DV 01/10/20 12:17 Wound Center Nurse 2 [Procedure/Treatment] #6- R LAT DICKENS -Time 12:20 -Correct Patient Yes -Correct Side, Site, Position Yes -Correct Procedure Yes -Procedure Performed Yes -Type of Procedure Debridement -Clinical Debridement Subcutaneous -Post Debridement Size (cm) - Length 1.5 -Post Debridement Size (cm) - Width 1.5 -Post Debridement Size (cm) - Depth 0.2 -Total Square Cm 2.25 -Wound/Ulcer Outcome Not Healed -Ulcer Cleansing Rinsed/ Irrigated with Saline -Foul Odor after Cleansing No -Bioengineered Tissue Yes -Type of bioengineered Tissue GRAFIX-Core -Bleeding Controlled with Pressure -Offloading No -Treatment Response Procedure Tolerated Well #5 LLE- Circumfrential -Time 12:20 -Correct Patient Yes -Correct Side, Site, Position Yes -Correct Procedure Yes -Procedure Performed Yes -Type of Procedure Debridement -Clinical Debridement Subcutaneous -Post Debridement Size (cm) - Length 12.5 -Post Debridement Size (cm) - Width 17.0 -Post Debridement Size (cm) - Depth 0.2 -Total Square Cm 212.50 -Wound/Ulcer Outcome Not Healed -Ulcer Cleansing Rinsed/ Irrigated with Saline -Foul Odor after Cleansing No -Bioengineered Tissue No -Bleeding Controlled with Pressure -Offloading No -Treatment Response Procedure Tolerated Well [See Physician Procedure note for Specifics] Pain Scale: 0-10 Numeric [Pain] -Is Patient Pain Free? Yes Musculoskeletal: No Muscle Wasting Neurological: Cranial nerves II-XII grossly intact, Neuro grossly intact Psych/Mental Status: Normal Affect, Appropriate, Alert and oriented to time, place, person, mood and affect Debridement Note Post-Debridement Measurements/Treatment WC - Nurse 2 - General Ulcer CM Notes Start: 12/13/19 12:01 Freq: Status: Active Protocol: Activity Type Activity Date Activity User E-Sign Co-Sign Detail Recorded Client Recorded Date Recorded By Document 12/13/19 12:18 DV [id number] 12/13/19 12:28 DV Document 12/20/19 12:17 DV [id number] 12/20/19 12:35 DV Document 12/27/19 12:43 DV [id number] 12/27/19 12:55 DV Document 01/03/20 12:29 DV [id number] 01/03/20 12:43 DV Document 01/10/20 12:17 DV [id number] 01/10/20 12:28 DV 12/13/19 12/20/19 12/27/19 12:18 12:17 12:43 Wound Center Nurse 2 #6- R LAT DICKENS -Time 12:24 12:17 12:44 -Correct Patient Yes Yes Yes -Correct Side, Site, Position Yes Yes Yes -Correct Procedure No Yes Yes -Procedure Performed No Yes Yes -Type of Procedure Debridement Debridement -Clinical Debridement Subcutaneous Subcutaneous -Post Debridement Size (cm) - Length 1.7 2.2 -Post Debridement Size (cm) - Width 1.8 1.2 -Post Debridement Size (cm) - Depth 0.2 0.2 -Total Square Cm 3.06 2.64 -Wound/Ulcer Outcome Not Healed Not Healed Not Healed -Ulcer Cleansing Rinsed/ Rinsed/ Irrigated with Irrigated with Saline Saline -Foul Odor after Cleansing No No -Bioengineered Tissue Yes -Type of bioengineered Tissue GRAFIX-Core GRAFIX-Core -Expiration Date 08/03/24 09/26/24 -Product Lot Number [id number] -Percent Used 100 100 -Saline Lot Number HYDRO -Topical Lidocaine (%) 4 4 -Bleeding Controlled with Pressure Pressure -Offloading No No -Treatment Response Procedure Procedure Tolerated Well Tolerated Well #5 LLE- Circumfrential -Time 12:19 12:34 12:52 -Correct Patient Yes Yes Yes -Correct Side, Site, Position Yes Yes Yes -Correct Procedure Yes Yes -Procedure Performed Yes Yes Yes -Type of Procedure Debridement Debridement Debridement -Clinical Debridement Subcutaneous Subcutaneous Subcutaneous -Post Debridement Size (cm) - Length 11.5 11.1 10.0 -Post Debridement Size (cm) - Width 19.7 19.5 17.5 -Post Debridement Size (cm) - Depth 0.2 0.2 0.2 -Total Square Cm 226.55 216.45 175.00 -Wound/Ulcer Outcome Not Healed Not Healed Not Healed -Ulcer Cleansing Rinsed/ Rinsed/ Rinsed/ Irrigated with Irrigated with Irrigated with Saline Saline Saline -Foul Odor after Cleansing No No No -Bioengineered Tissue No No No -Bleeding Controlled with Pressure Pressure Pressure -Offloading No No No -Treatment Response Procedure Procedure Procedure Tolerated Well Tolerated Well Tolerated Well Pain Scale: 0-10 Numeric Is Patient Pain Free? Yes Yes Yes 01/03/20 01/10/20 12:29 12:17 Wound Center Nurse 2 #6- R LAT DICKENS -Time 12:30 12:20 -Correct Patient Yes Yes -Correct Side, Site, Position Yes Yes -Correct Procedure Yes Yes -Procedure Performed Yes Yes -Type of Procedure Debridement Debridement -Clinical Debridement Subcutaneous Subcutaneous -Post Debridement Size (cm) - Length 1.7 1.5 -Post Debridement Size (cm) - Width 4.0 1.5 -Post Debridement Size (cm) - Depth 0.2 0.2 -Total Square Cm 6.80 2.25 -Wound/Ulcer Outcome Not Healed Not Healed -Ulcer Cleansing Rinsed/ Rinsed/ Irrigated with Irrigated with Saline Saline -Foul Odor after Cleansing No No -Bioengineered Tissue Yes Yes -Type of bioengineered Tissue GRAFIX-Core GRAFIX-Core -Expiration Date 09/26/24 -Product Lot Number [id number] -Percent Used 100 -Saline Lot Number HYDRO -Topical Lidocaine (%) 4 -Bleeding Controlled with Pressure Pressure -Offloading No No -Treatment Response Procedure Procedure Tolerated Well Tolerated Well #5 LLE- Circumfrential -Time 12:34 12:20 -Correct Patient Yes Yes -Correct Side, Site, Position Yes Yes -Correct Procedure Yes Yes -Procedure Performed Yes Yes -Type of Procedure Debridement Debridement -Clinical Debridement Subcutaneous Subcutaneous -Post Debridement Size (cm) - Length 9.5 12.5 -Post Debridement Size (cm) - Width 16.8 17.0 -Post Debridement Size (cm) - Depth 0.2 0.2 -Total Square Cm 159.60 212.50 -Wound/Ulcer Outcome Not Healed Not Healed -Ulcer Cleansing Rinsed/ Rinsed/ Irrigated with Irrigated with Saline Saline -Foul Odor after Cleansing No No -Bioengineered Tissue No No -Bleeding Controlled with Pressure Pressure -Offloading No No -Treatment Response Procedure Procedure Tolerated Well Tolerated Well Pain Scale: 0-10 Numeric Is Patient Pain Free? Yes Yes Laterality: Right Type of Debridement: Excisional debridement - Lateral calf Anesthesia Used: 5% Lidocaine Gel Depth: Down to and including healthy tissue, in the subcutaneous layer Percentage of wound debrided: 100 Instrument Used: 5mm curette Tissue Removed: Bioburden Severity: Fat Layer Exposed Amount of bleeding with debridement: Mild Bleeding Controlled with: Compression and gauze Following a routine excisional debridement, an allograft was placed. An AmnioExcel Plus allograft was selected, 2 cm x 2 cm. Upon removal from its sterile packaging, it was placed topically. It was anchored in place using Adaptic Touch. Because there is uncertainty as to the cause of the excoriations and irritations about the right calf ulceration, we are to avoid Steri-Strips, Adaptic, and other anchoring methods on the skin in an effort to diminish the irritation. Only dry gauze will be used at the site, with application of collagen hydrogel topically twice weekly, as was applied today, directly at the site of the right calf ulceration. 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 She has a large irregular ulceration on the left lower extremity which is related to her venous disease. The patient has demonstrated slow but progressive improvement. She presented recently with a new ulceration on the right lateral calf. The etiology of this new ulceration is uncertain. We are to continue leg elevation, avoidance of idle standing and sitting, compression, active lifestyle, weight control measures, etc. She is also to continue using mechanical pneumatic compression pumps 2-3 times daily in the left lower extremity. She is to continue to take a well-balanced, nutritious diet. Plan: We are to continue with conservative measures. These measures are to include leg elevation. She is to continue sleeping on a flat mattress at night. Her legs are to be elevated to heart level, or higher, even during daytime hours. Leg elevation has been recommended as much as possible. The patient is to avoid prolonged idle sitting. Activity has been encouraged. We are to continue the use of one-quarter strength Dakin's solution (0.125%) topically on the ulceration of the left calf. This will be alternated every other day with Silvadene topically. There appears to have been significant improvement in the left calf ulceration since the initiation of Dakin's solution, alternating with Silvadene. XtraSorb will continue to be used for control of exudative drainage. We have placed an AmnioExcel Plus allograft to the ulceration of the right anterolateral calf today, which will be left undisturbed until the patient's r eturn visit in 2 weeks. This represents the 8th such application. SurePress compression wrap will be used daily in the lower extremities. Mechanical pneumatic compression pumps are to be used twice daily for the left lower extremity. According to the patient's , the patient has become increasingly more difficult to manage in the home setting, due to her Alzheimer's dementia, which has resulted in some noncompliance. Patient is to continue the use of Vasculera orally on a daily basis. Nutritional optimization has been recommended. The patient will return for reevaluation in 2 weeks. It is anticipated that we will continue to use an allograft in treatment for the right calf ulceration, the 8th of which was applied this week. Patient weight is 160 pounds. Patient is 5 feet 9 inches tall. BMI is 23.6. BMI is reasonable. The patient is not a smoker. Influenza vaccine was not administered.
== END 2020-01-10 23:59 ==
LOC: WC 12:00
PROVIDERS: Referring Provider Surgery; Visit Provider Surgery
DX: I83.212 Varicose veins of right lower extremity with both ulcer of calf and inflammation (principal); I83.222 Varicose veins of left lower extremity with both ulcer of calf and inflammation; L97.212 Non-pressure chronic ulcer of right calf with fat layer exposed; L97.222 Non-pressure chronic ulcer of left calf with fat layer exposed; M79.89 Other specified soft tissue disorders; R60.0 Localized edema; I87.1 Compression of vein; F02.80 Dementia in other diseases classified elsewhere, unspecified severity, without behavioral disturbance, psychotic disturbance, mood disturbance, and anxiety; G30.9 Alzheimer's disease, unspecified; Z79.82 Long term (current) use of aspirin; Z86.718 Personal history of other venous thrombosis and embolism; Z79.899 Other long term (current) drug therapy; Z79.52 Long term (current) use of systemic steroids; Z91.19 Patient's noncompliance with other medical treatment and regimen; Z79.02 Long term (current) use of antithrombotics/antiplatelets
CPT/HCPCS: 11042; 11045; 15271; Q4137

== ENCOUNTER 2020-01-24 08:46 | Outpatient (RCR) | payer MEDICARE, BC, SELFPAY ==
[2020-01-11 00:21] VITALS: BP 146/71; PULSE 74; RESP 18; TEMP 36.6
[2020-01-24 12:01] VITALS: BP 145/56; PULSE 71; RESP 18; TEMP 36.3
--- NOTE | 2020-01-24 12:45 | PCM.WC.HP ---
(1) Ulcer of right calf Status: Chronic Current Visit: Yes Qualifiers: Non-pressure ulcer stage: with fat layer exposed Code(s): L97.219 - Non-pressure chronic ulcer of right calf with unspecified severity (2) Right leg swelling Status: Chronic Current Visit: Yes Code(s): M79.89 - Other specified soft tissue disorders (3) Leg edema, right Status: Chronic Current Visit: Yes Code(s): R60.0 - Localized edema (4) Chronic venous hypertension with inflammation involving left side Status: Chronic Current Visit: Yes Code(s): I87.322 - Chronic venous hypertension (idiopathic) with inflammation of left lower extremity (5) Left leg swelling Status: Chronic Current Visit: Yes Code(s): M79.89 - Other specified soft tissue disorders (6) Varicose veins with ulcer and inflammation Status: Chronic Current Visit: Yes Code(s): I83.209 - Varicose veins of unspecified lower extremity with both ulcer of unspecified site and inflammation; L97.909 - Non-pressure chronic ulcer of unspecified part of unspecified lower leg with unspecified severity (7) Leg edema, left Status: Chronic Current Visit: Yes Code(s): R60.0 - Localized edema (8) May-Thurner syndrome Status: Resolved Current Visit: No Code(s): I87.1 - Compression of vein (9) History of DVT (deep vein thrombosis) Status: Chronic Current Visit: No Code(s): Z86.718 - Personal history of other venous thrombosis and embolism Comment: left lower ext (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 Current Visit: No (11) Cellulitis, leg Status: Resolved Current Visit: No Qualifiers: Code(s): L03.119 - Cellulitis of unspecified part of limb (12) Erythema of skin Status: Resolved Current Visit: No Code(s): L53.9 - Erythematous condition, unspecified (13) Cellulitis of leg Status: Resolved Current Visit: No Qualifiers: Code(s): L03.119 - Cellulitis of unspecified part of limb (14) Cellulitis Status: Resolved Current Visit: No Code(s): L03.90 - Cellulitis, unspecified (15) Chronic venous insufficiency Status: Chronic Current Visit: Yes (16) Lymphedema of left leg Status: Chronic Current Visit: Yes Code(s): I89.0 - Lymphedema, not elsewhere classified (17) 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 Status: Chronic Current Visit: Yes Code(s): I87.039 - Postthrombotic syndrome with ulcer and inflammation of unspecified lower extremity (18) Calf ulcer Status: Chronic Current Visit: Yes Qualifiers: Laterality: left Code(s): L97.209 - Non-pressure chronic ulcer of unspecified calf with unspecified severity (19) chronic left lower ext wound Status: Chronic Current Visit: Yes History of Present Illness Date of Service: 01/24/20 Chief Complaint: Chronic venous insufficiency, chronic venous hypertension with inflammation and ulceration, varicose veins with inflammation and ulceration, post phlebitic syndrome with inflammation and ulceration,leg swelling, leg edema, lymphedema, venous stasis ulceration-left lower extremity History of Wound: This is a 79-year-old white female with a long-standing history of chronic venous disease and swelling in her left lower extremity. This has been present for many years. She has a large ulceration located between her left knee and ankle, which is quite large and irregular in shape, and also highly exudative. 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 She has also previously undergone successful endovenous laser ablation of the left great and small saphenous veins. Healing of the patient's left lower extremity ulceration has been slow, but progressive. A number of healing measures have been implemented in the past, without success. We are currently using Silvadene topically and Xtrasorb for absorption of exudate. A diluted Dakin's solution is also used topically on an intermittent basis. 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 (Chronic) Calf ulcer (Chronic) chronic left lower ext wound (Chronic) Surgical History: appendectomy, hysterectomy Allergies/Adverse Reactions: Allergies Latex, Natural Rubber Allergy (Verified 07/12/13 11:34) Rash Sulfa (Sulfonamide Antibiotics) Allergy (Verified 07/12/13 11:34) Hives trimethoprim Allergy (Verified 07/12/13 11:34) Hives Home Medications: Ambulatory Orders Medication Instructions Recorded Aspirin [Aspirin, Baby] 81 mg PO DAILY@0800 07/12/13 Calcium Carb/Vitamin D [Os-Mo 1 tablet PO DAILY@0800 07/12/13 500MG + D] Clopidogrel Bisulfate [Plavix] 75 mg PO DAILY 07/12/13 Doxepin HCl [Sinequan] 100 mg PO BID 07/12/13 Doxycycline Monohydrate [Monodox] 100 mg PO BID 07/12/13 [place]-3 Fatty Acids/Fish Oil [Fish 1 each PO DAILY 07/12/13 Oil 1,000 mg Softgel] Vitamin B12 500 mg PO DAILY 07/12/13 Vitamin C 500 mg PO DAILY 07/12/13 proMETHazine soln (6.25mg/5mL) 5 ml PO Q4H PRN PRN 07/12/13 [Phenergan Plain] Prednisone [PredniSONE] 200 mg PO DAILY 07/03/14 Valacyclovir HCl [Valacyclovir] 500 mg PO DAILY 07/03/14 Smoking Status: Never smoker Tobacco Use: Non-smoker Review of Systems Constitutional: Denies: Chills, Fever, Weight Change Eyes: Denies: Pain, Vision Change HEENT: Denies: Difficulty Hearing, Difficulty Swallowing, Sinus Congestion Cardiovascular: Denies: Chest Pain, Palpitations Respiratory: Denies: Cough, Shortness of Breath Gastrointestinal: Denies: Diarrhea, Nausea, Vomiting Genitourinary: Denies: Dysuria, Hematuria Endocrine: Denies: Heat/ Cold Intolerance, Polydipsia, Polyuria Hematologic/ Lymphatic: Denies: Easy Bruising, Easy Bleeding - Physical Exam Vital Signs Temp Pulse Resp BP 97.4 F L 71 18 145/56 H 01/24/20 12:01/24/20 12:01 01/24/20 12:01/24/20 12:01 General: Alert, Oriented x3, Cooperative, No apparent distress, Well developed, Well nourished HEENT: Atraumatic, PERRLA, EOMI, Normocephalic Oral: Moist Mucosa Neck: No JVD Lungs: Normal air movement Abdomen: Non-Distended Extremities: No clubbing, No cyanosis, No Calf Tenderness, - - Slight swelling and edema is noted in the right lower extremity. Significant swelling and edema persists in the left lower extremity, which is chronic in nature. It is most notable on the dorsum of the left foot. This has been chronic in nature. The ulceration on the right lateral calf persists, though appears to be smaller in size, with evidence of peripheral epithelialization. The base of the ulceration is generally pink and healthy in appearance. There is no sign of infection or cellulitis. Dimensions are documented elsewhere. The large clustered ulceration of the left calf persists as well. There continues to be increasing areas of epithelialization. There is a moderate amount of bioburden, as with the ulceration on the right. There is no sign of infection or cellulitis. Dimensions are documented elsewhere. Skin: No rashes Wound Measurements and Assessment WC - Nurse 1 - General Ulcer Measurement Start: 01/24/20 12:01 Freq: Status: Active Protocol: Activity Type Activity Date Activity User E-Sign Co-Sign Detail Recorded Client Recorded Date Recorded By Document 01/24/20 12:01 PL [id number] 01/24/20 12:16 PL 01/24/20 12:01 Wound Center Nurse 1 [Ulcer Assessment] #6- R LAT DICKENS -Combined with other wound No -Current Size (cm) - Length 4.5 -Current Size (cm) - Width 4.0 -Current Size (cm) - Depth 0.3 -Total Square Cm 18.00 -Photo Taken No -Epithelialization None Present -Tunneling No -Undermining/Tunneling No -Exudate Amt Small -Exudate Type Serosanguineous -Granulation Amt Medium (34-66%) -Granulation Quality [place],Red -Slough/Fibrin Yes -Necrosis Amt Medium (34-66%) -Necrotic Tissue Type Eschar -Ulcer Cleansing Rinsed/ Irrigated with Saline -Foul Odor after Cleansing No -Anesthetic Used 4% Lidocaine Solution #5 LLE- Circumfrential -Combined with other wound No -Current Size (cm) - Length 25.0 -Current Size (cm) - Width 10.5 -Current Size (cm) - Depth 0.2 -Total Square Cm 262.50 -Photo Taken No -Epithelialization Small 1-33% -Tunneling No -Undermining/Tunneling No -Exudate Amt Medium -Exudate Type Serosanguineous -Granulation Amt Medium (34-66%) -Granulation Quality [place],Red -Slough/Fibrin Yes -Necrosis Amt Medium (34-66%) -Necrotic Tissue Type Eschar -Temperature (Nahomy-wound Skin No Abnormality Appearance) (Pt Warm) -Ulcer Cleansing Soap and Water -Anesthetic Used 4% Lidocaine Solution WC - Nurse 2 - General Ulcer CM Notes Start: 01/24/20 12:01 Freq: Status: Active Protocol: Activity Type Activity Date Activity User E-Sign Co-Sign Detail Recorded Client Recorded Date Recorded By Document 01/24/20 12:27 DV [id number] 01/24/20 12:32 DV 01/24/20 12:27 Wound Center Nurse 2 [Procedure/Treatment] #6- R LAT DICKENS -Time 12:27 -Correct Patient Yes -Correct Side, Site, Position Yes -Correct Procedure Yes -Procedure Performed Yes -Type of Procedure Debridement -Clinical Debridement Subcutaneous -Post Debridement Size (cm) - Length 4.0 -Post Debridement Size (cm) - Width 4.0 -Post Debridement Size (cm) - Depth 0.3 -Total Square Cm 16.00 -Wound/Ulcer Outcome Not Healed -Ulcer Cleansing Rinsed/ Irrigated with Saline -Foul Odor after Cleansing No -Bioengineered Tissue No -Bleeding Controlled with Pressure -Offloading No -Treatment Response Procedure Tolerated Well #5 LLE- Circumfrential -Time 12:30 -Correct Patient Yes -Correct Side, Site, Position Yes -Correct Procedure Yes -Procedure Performed Yes -Type of Procedure Debridement -Clinical Debridement Subcutaneous -Post Debridement Size (cm) - Length 12.0 -Post Debridement Size (cm) - Width 17.0 -Post Debridement Size (cm) - Depth 0.2 -Total Square Cm 204.00 -Wound/Ulcer Outcome Not Healed -Ulcer Cleansing Rinsed/ Irrigated with Saline -Foul Odor after Cleansing No -Bioengineered Tissue No -Bleeding Controlled with Pressure -Offloading No -Treatment Response Procedure Tolerated Well [See Physician Procedure note for Specifics] Pain Scale: 0-10 Numeric [Pain] -Is Patient Pain Free? Yes Musculoskeletal: No Muscle Wasting Neurological: Cranial nerves II-XII grossly intact, Neuro grossly intact Psych/Mental Status: Normal Affect, Appropriate, Alert and oriented to time, place, person, mood and affect Debridement Note Post-Debridement Measurements/Treatment WC - Nurse 2 - General Ulcer CM Notes Start: 01/24/20 12:01 Freq: Status: Active Protocol: Activity Type Activity Date Activity User E-Sign Co-Sign Detail Recorded Client Recorded Date Recorded By Document 01/24/20 12:27 DV [id number] 01/24/20 12:32 DV 01/24/20 12:27 Wound Center Nurse 2 #6- R LAT DICKENS -Time 12:27 -Correct Patient Yes -Correct Side, Site, Position Yes -Correct Procedure Yes -Procedure Performed Yes -Type of Procedure Debridement -Clinical Debridement Subcutaneous -Post Debridement Size (cm) - Length 4.0 -Post Debridement Size (cm) - Width 4.0 -Post Debridement Size (cm) - Depth 0.3 -Total Square Cm 16.00 -Wound/Ulcer Outcome Not Healed -Ulcer Cleansing Rinsed/ Irrigated with Saline -Foul Odor after Cleansing No -Bioengineered Tissue No -Bleeding Controlled with Pressure -Offloading No -Treatment Response Procedure Tolerated Well #5 LLE- Circumfrential -Time 12:30 -Correct Patient Yes -Correct Side, Site, Position Yes -Correct Procedure Yes -Procedure Performed Yes -Type of Procedure Debridement -Clinical Debridement Subcutaneous -Post Debridement Size (cm) - Length 12.0 -Post Debridement Size (cm) - Width 17.0 -Post Debridement Size (cm) - Depth 0.2 -Total Square Cm 204.00 -Wound/Ulcer Outcome Not Healed -Ulcer Cleansing Rinsed/ Irrigated with Saline -Foul Odor after Cleansing No -Bioengineered Tissue No -Bleeding Controlled with Pressure -Offloading No -Treatment Response Procedure Tolerated Well Pain Scale: 0-10 Numeric Is Patient Pain Free? Yes Laterality: Left - Calf Type of Debridement: Excisional debridement Anesthesia Used: 5% Lidocaine Gel Depth: Down to and including healthy tissue, in the subcutaneous layer Percentage of wound debrided: 100 Instrument Used: 5mm curette Tissue Removed: Bioburden and nonviable tissue Severity: Fat Layer Exposed Amount of bleeding with debridement: Mild Bleeding Controlled with: Compression and gauze Patient tolerated procedure well - Additional Wound Laterality: Right - Lateral calf Type of Debridement: Excisional debridement Anesthesia Used: 5% Lidocaine Gel Depth: Down to and including healthy tissue, in the subcutaneous layer Percentage of wound debrided: 100 Instrument Used: 5mm curette Tissue Removed: Bioburden Severity: Fat Layer Exposed Amount of bleeding with debridement: Mild Bleeding Controlled with: Compression and gauze Patient tolerated procedure: Patient tolerated procedure well Assessment/Plan Active Problems Ulcer of right calf (Chronic) Right leg swelling (Chronic) Leg edema, right (Chronic) Chronic venous hypertension with inflammation involving left side (Chronic) Left leg swelling (Chronic) Varicose veins with ulcer and inflammation (Chronic) Leg edema, left (Chronic) Chronic venous insufficiency (Chronic) Lymphedema of left leg (Chronic) 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 She has a large irregular ulceration on the left lower extremity which is related to her venous disease. The patient has demonstrated slow but progressive improvement. She presented recently with a new ulceration on the right lateral calf. The etiology of this new ulceration is uncertain. We are to continue leg elevation, avoidance of idle standing and sitting, compression, active lifestyle, weight control measures, etc. She is also to continue using mechanical pneumatic compression pumps 2-3 times daily in the left lower extremity. She is to continue to take a well-balanced, nutritious diet. Plan: We are to continue with conservative measures. These measures are to include leg elevation. She is to continue sleeping on a flat mattress at night. Her legs are to be elevated to heart level, or higher, even during daytime hours. Leg elevation has been recommended as much as possible. The patient is to avoid prolonged idle sitting. Activity has been encouraged. We are to continue the use of one-quarter strength Dakin's solution (0.125%) topically on the ulceration of the left calf. This will be alternated every other day with Silvadene topically. There appears to have been significant improvement in the left calf ulceration since the initiation of Dakin's solution, alternating with Silvadene. XtraSorb will continue to be used for control of exudative drainage. We will also use this combination of Dakin's solution and Silvadene topically to the ulceration on the right lateral calf on a daily basis. SurePress compression wrap will be used daily in the lower extremities. Mechanical pneumatic compression pumps are to be used twice daily for the left lower extremity. According to the patient's , the patient has become increasingly more difficult to manage in the home setting, due to her Alzheimer's dementia, which has resulted in some noncompliance. Patient is to continue the use of Vasculera orally on a daily basis. Nutritional optimization has been recommended. We are to arrange a TeleHealth visit in 2 weeks, which will likely involve the patient's daughter, who lives with the patient. This will enable assessment of the patient's progress and the ongoing status of her bilateral lower extremity ulcerations. It is anticipated that we will continue to use an allograft in treatment for the right calf ulceration in the future, the 8th of which was applied 2 weeks ago. Patient weight is 160 pounds. Patient is 5 feet 9 inches tall. BMI is 23.6. BMI is reasonable. The patient is not a smoker. Influenza vaccine was not administered.
== END 2020-02-09 23:59 ==
LOC: WC 08:46
PROVIDERS: Referring Provider Surgery; Visit Provider Surgery
DX: L97.222 Non-pressure chronic ulcer of left calf with fat layer exposed (principal); M79.89 Other specified soft tissue disorders; R60.0 Localized edema; I83.209 Varicose veins of unspecified lower extremity with both ulcer of unspecified site and inflammation; I87.1 Compression of vein; Z86.718 Personal history of other venous thrombosis and embolism; I89.0 Lymphedema, not elsewhere classified; Z79.82 Long term (current) use of aspirin; Z79.899 Other long term (current) drug therapy; Z88.1 Allergy status to other antibiotic agents; Z88.2 Allergy status to sulfonamides; Z90.710 Acquired absence of both cervix and uterus; Z91.040 Latex allergy status; F02.80 Dementia in other diseases classified elsewhere, unspecified severity, without behavioral disturbance, psychotic disturbance, mood disturbance, and anxiety; G30.9 Alzheimer's disease, unspecified
CPT/HCPCS: 11042; 11045